=== PATIENT | male | born 1990 | race Caucasian/White ===

== ENCOUNTER 2017-05-02 13:12 | Emergency (ER) | payer SELFPAY ==
[~2017-05-02] VITALS: Ht 180.3 cm; Wt 88.2 kg
[~2017-05-02 13:12] MED LIST: LANS15CA6 PO; NAPR1TAB9 PO
[2017-05-02 13:16] VITALS: TEMP 37.2; Ht 180.3 cm; Wt 88.2 kg
[2017-05-02 14:48] LABS: BASO % 0.4 %; BASO ABS # 0.04 K/uL (0-0.2); COMPLETE YES; EOS % 0.4 %; IG% 0.1 %; LYMPH ABS # 2.19 K/uL (1.2-3.4); MEAN CELL VOLUME 90.7 fL (80-100); MEAN CORPUSCULAR HEMOGLOBIN 31.5 pg (25-34); MEAN CORPUSCULAR HGB CONC 34.7 g/dl (32-36); MEAN PLATELET VOLUME 10.6 fL (7.4-10.4); MONO % 4.1 %; PLATELET COUNT 242 K/uL (130-400); RED BLOOD COUNT 5.18 M/uL (4.7-6.1); WHITE BLOOD COUNT 9.54 K/uL (4.8-10.8)
[2017-05-02 15:09] LABS: BUN/CREATININE RATIO 11.7 (10-20); CALCIUM 9.8 mg/dl (8.5-10.1); CREATININE 1.1 mg/dl (0.60-1.40); POTASSIUM 3.3 mmol/L (3.5-5.1)
[2017-05-02 15:12] LABS: ALB/GLOB RATIO 1.3 (0.9-2)
[2017-05-02 15:53] VITALS: BP 132/82; PULSE 68; O2SAT 97
--- NOTE | 2017-05-02 16:01 | EMERGENCY ROOM VISIT NOTE ---
History First contact with patient: 13:29 Chief Complaint: ABDOMINAL PAIN Stated Complaint: NAUSEA, ABDOMINAL PAINS Nursing Triage Summary: Pt c/o mid upper abd pain and nausea for months, worse of the last few weeks. Quit smoking and took prevacid because he wasn't feeling well. Intermittent v/d. Pt reports he stopped all dairy as well. History of Present Illness The patient is a 27 year old male who presents to the Emergency Room with complaints of abdominal discomfort. The patient has had approximately 2 years of epigastric abdominal discomfort, worse with eating, better with laying down, and worsening over the last month. He describes the pain as dull, 3/10 at its worse, not radiating, and worse in afternoon. The patient has been self- medicating with Prevacid for the last year. He has recently tried to change his diet because the discomfort was worsening over the last month, and over the last 2 weeks cut out both dairy and meat from his diet. He denies any improvement with his change in diet and was worried that it was continuing to worsen. He also states that 4 months ago he quit smoking and only smokes alcohol on weekends. The patient also describes that he has had some bright red blood in his stool in the past, but has not had an episode over the last 3 months. He states that his stool is currently normal and he denies any dark stools. He denies any vomiting, but does appreciate some nausea during the episodes. He denies any fevers, chills, chest pain, weakness, fatigue, or any other acute symptoms. Review of Systems See HPI for pertinent positives and negatives. A total of ten systems were reviewed and were otherwise negative. Past Medical/Surgical History Medical Problems: (1) No significant past medical history Family History FHx: gallbladder disease Social History Smoking Status: Former Smoker Alcohol Use: occasionally Occupation Status: employed Current/Historical Medications Scheduled Lansoprazole (Prevacid), 1 TAB PO DAILY Scheduled PRN Naproxen (Aleve), 220 MG PO DIRECTED PRN for Pain or Fever Allergies Coded Allergies: No Known Allergies (Unverified , 05/02/17) Physical Exam Vital Signs Date Time Temp Pulse Resp B/P (MAP) Pulse Ox O2 Delivery O2 Flow Rate FiO2 05/02/17 14:44 65 20 139/75 99 Room Air 05/02/17 13:16 37.2 84 16 150/95 99 Room Air Physical Exam GENERAL: Awake, alert, well-appearing, in no distress HENT: Normocephalic, atraumatic. Oropharynx unremarkable. EYES: Normal conjunctiva. Sclera non-icteric. NECK: Supple. No nuchal rigidity. RESPIRATORY: Clear to auscultation. CARDIAC: Regular rate, normal rhythm. Extremities warm and well perfused. Pulses equal. ABDOMEN: Soft, non-distended. Mild tenderness with palpation of the epigastric region. No rebound or guarding. RECTAL: Deferred. MUSCULOSKELETAL: Chest examination reveals no tenderness. The back is symmetrical on inspection without obvious abnormality. There is no CVA tenderness to palpation. LOWER EXTREMITIES: Calves are equal size bilaterally and non-tender. No edema. No discoloration. NEURO: Normal sensorium. No sensory or motor deficits noted. SKIN: No rash or jaundice noted. Medical Decision & Procedures Laboratory Results 05/02/17 14:35 Red Blood Count 5.18, Mean Corpuscular Volume 90.7, Mean Corpuscular Hemoglobin 31.5, Mean Corpuscular Hemoglobin Concent 34.7, Mean Platelet Volume 10.6, Neutrophils (%) (Auto) 72.0, Lymphocytes (%) (Auto) 23.0, Monocytes (%) (Auto) 4.1, Eosinophils (%) (Auto) 0.4, Basophils (%) (Auto) 0.4, Neutrophils # (Auto) 6.87, Lymphocytes # (Auto) 2.19, Monocytes # (Auto) 0.39, Eosinophils # (Auto) 0.04, Basophils # (Auto) 0.04 05/02/17 14:35 Test 05/02/17 14:35 White Blood Count 9.54 K/uL (4.8-10.8) Red Blood Count 5.18 M/uL (4.7-6.1) Hemoglobin 16.3 g/dL (14.0-18.0) Hematocrit 47.0 % (42-52) Mean Corpuscular Volume 90.7 fL (80-100) Mean Corpuscular Hemoglobin 31.5 pg (25-34) Mean Corpuscular Hemoglobin Concent 34.7 g/dl (32-36) Platelet Count 242 K/uL (130-400) Mean Platelet Volume 10.6 fL (7.4-10.4) Neutrophils (%) (Auto) 72.0 % Lymphocytes (%) (Auto) 23.0 % Monocytes (%) (Auto) 4.1 % Eosinophils (%) (Auto) 0.4 % Basophils (%) (Auto) 0.4 % Neutrophils # (Auto) 6.87 K/uL (1.4-6.5) Lymphocytes # (Auto) 2.19 K/uL (1.2-3.4) Monocytes # (Auto) 0.39 K/uL (0.11-0.59) Eosinophils # (Auto) 0.04 K/uL (0-0.5) Basophils # (Auto) 0.04 K/uL (0-0.2) RDW Standard Deviation 42.7 fL (36.4-46.3) RDW Coefficient of Variation 12.8 % (11.5-14.5) Immature Granulocyte % (Auto) 0.1 % Immature Granulocyte # (Auto) 0.01 K/uL (0.00-0.02) Anion Gap 9.0 mmol/L (3-11) Est Creatinine Clear Calc Drug Dose 108.3 ml/min Estimated GFR () 106.8 Estimated GFR (Non- 92.2 BUN/Creatinine Ratio 11.7 (10-20) Calcium Level 9.8 mg/dl (8.5-10.1) Total Bilirubin 1.0 mg/dl (0.2-1) Aspartate Amino Transf (AST/SGOT) 32 U/L (15-37) Alanine Aminotransferase (ALT/SGPT) 46 U/L (12-78) Alkaline Phosphatase 55 U/L (45-117) Total Protein 8.6 gm/dl (6.4-8.2) Albumin 4.8 gm/dl (3.4-5.0) Globulin 3.8 gm/dl (2.5-4.0) Albumin/Globulin Ratio 1.3 (0.9-2) Lipase 102 U/L (73-393) Medical Decision Patient is a 27 year old male that presents to the ED with abdominal pain Etiologies such as appendicitis, obstruction, inflammatory bowel disease, PUD, biliary pathology, pancreatitis, infections, as well as others were entertained. Labs: CBC, CMP, Lipase Impression Primary Impression: Epigastric abdominal pain of unknown etiology Patient is a 27 year old male that presents with abdominal discomfort for the last 2 years - Patient CBC, CMP, and Lipase appear to be within normal limits - Patient currently taking Prevacid 15mg at home daily - Symptoms appear to correlate with GERD and currently receiving subtherapeutic dose of PPI Departure Information Dispostion Home / Self-Care Condition GOOD Referrals No Doctor, Assigned (PCP) Patient Instructions My [facility] Additional Instructions Increase your dose of Prevacid to 30mg once daily for abdominal discomfort Return to the ER immediately for worsening or persistent abdominal pain, vomiting, fevers, chest pains, difficulty breathing, black or bloody stools, worsening of your condition, or as needed. Establish with a primary physician as soon as possible for a recheck of your current condition.
--- NOTE | 2017-05-02 18:37 | EMERGENCY ROOM VISIT NOTE ---
History Report prepared by Edgardo: Jocelyne Hester Under the Supervision of: Dr. Meet De La Paz M.D. First contact with patient: 13:29 Chief Complaint: ABDOMINAL PAIN Stated Complaint: NAUSEA, ABDOMINAL PAINS Nursing Triage Summary: Pt c/o mid upper abd pain and nausea for months, worse of the last few weeks. Quit smoking and took prevacid because he wasn't feeling well. Intermittent v/d. Pt reports he stopped all dairy as well. History of Present Illness The patient is a 27 year old male who presents to the Emergency Room with complaints of worsening upper abdominal pain beginning 1 month prior to arrival. He rates his pain as 3/10 in severity. The patient states that he has been experiencing abdominal pain for the past 2 years. This past month and into the past 2 weeks have been the most severe. The patient 4 months ago quit smoking. He notes recent changes to his diet within the past 2 weeks. He stopped drinking coffee and is not eating acidic food, meat or dairy. He has not noticed a change in his symptoms. The patient states that his pain worsens after eating. She denies any early satiety. The patient does drink alcohol once a week. He states he does experience nausea with the pain. The patient does take Protonics every morning and has been doing so for the past 2 years. The patient for the past year has intermittently experienced bright red blood in his stool. He notes that he has not had this for the past 4 months. The patient has noticed a slight change in his stools but he notes he thinks this is from his recently diet changes. The patient denies urinary symptoms or unintentional weight loss. He denies a family history of IBS or Crohn's disease. Source of History: patient Onset: 1 month PAN [employer]UL[employer] Position: abdomen (upper) Symptom Intensity: 3/10 Timing: worsening Associated Symptoms: + nausea Note: The patient has slight changes in his stool. The patient's pain worsens with eating. Review of Systems See HPI for pertinent positives & negatives. A total of 10 systems reviewed and were otherwise negative. Past Medical & Surgical Medical Problems: (1) No significant past medical history Family History FHx: gallbladder disease Social History Smoking Status: Former Smoker Alcohol Use: occasionally Occupation Status: employed Current/Historical Medications Scheduled Lansoprazole (Prevacid), 1 TAB PO DAILY Scheduled PRN Naproxen (Aleve), 220 MG PO DIRECTED PRN for Pain or Fever Allergies Coded Allergies: No Known Allergies (Unverified , 05/02/17) Physical Exam Vital Signs Date Time Temp Pulse Resp B/P (MAP) Pulse Ox O2 Delivery O2 Flow Rate FiO2 05/02/17 15:53 68 20 132/82 97 Room Air 05/02/17 14:44 65 20 139/75 99 Room Air 05/02/17 13:16 37.2 84 16 150/95 99 Room Air Physical Exam Constitutional: Vital signs reviewed. Eyes: Pupils are equal round reactive to light. Conjunctiva are noninjected. ENT: Pharynx is clear without erythema or exudate. Mucous membranes are moist. Neck supple without meningeal signs. Respiratory: Clear to auscultation bilaterally. Breath sounds are equal bilaterally. Cardiovascular: Regular rate and rhythm. No rubs or gallops. GI: Soft, nondistended and minimal epigastric tenderness. Bowel sounds are present. Musculoskeletal: No peripheral edema. No lower extremity tenderness. Integumentary: No cyanosis. Neurological: The patient is awake and alert. No focal deficits. Psychiatric: Normal affect. Medical Decision & Procedures Laboratory Results 05/02/17 14:35 Red Blood Count 5.18, Mean Corpuscular Volume 90.7, Mean Corpuscular Hemoglobin 31.5, Mean Corpuscular Hemoglobin Concent 34.7, Mean Platelet Volume 10.6, Neutrophils (%) (Auto) 72.0, Lymphocytes (%) (Auto) 23.0, Monocytes (%) (Auto) 4.1, Eosinophils (%) (Auto) 0.4, Basophils (%) (Auto) 0.4, Neutrophils # (Auto) 6.87, Lymphocytes # (Auto) 2.19, Monocytes # (Auto) 0.39, Eosinophils # (Auto) 0.04, Basophils # (Auto) 0.04 05/02/17 14:35 Test 05/02/17 14:35 White Blood Count 9.54 K/uL (4.8-10.8) Red Blood Count 5.18 M/uL (4.7-6.1) Hemoglobin 16.3 g/dL (14.0-18.0) Hematocrit 47.0 % (42-52) Mean Corpuscular Volume 90.7 fL (80-100) Mean Corpuscular Hemoglobin 31.5 pg (25-34) Mean Corpuscular Hemoglobin Concent 34.7 g/dl (32-36) Platelet Count 242 K/uL (130-400) Mean Platelet Volume 10.6 fL (7.4-10.4) Neutrophils (%) (Auto) 72.0 % Lymphocytes (%) (Auto) 23.0 % Monocytes (%) (Auto) 4.1 % Eosinophils (%) (Auto) 0.4 % Basophils (%) (Auto) 0.4 % Neutrophils # (Auto) 6.87 K/uL (1.4-6.5) Lymphocytes # (Auto) 2.19 K/uL (1.2-3.4) Monocytes # (Auto) 0.39 K/uL (0.11-0.59) Eosinophils # (Auto) 0.04 K/uL (0-0.5) Basophils # (Auto) 0.04 K/uL (0-0.2) RDW Standard Deviation 42.7 fL (36.4-46.3) RDW Coefficient of Variation 12.8 % (11.5-14.5) Immature Granulocyte % (Auto) 0.1 % Immature Granulocyte # (Auto) 0.01 K/uL (0.00-0.02) Anion Gap 9.0 mmol/L (3-11) Est Creatinine Clear Calc Drug Dose 108.3 ml/min Estimated GFR () 106.8 Estimated GFR (Non- 92.2 BUN/Creatinine Ratio 11.7 (10-20) Calcium Level 9.8 mg/dl (8.5-10.1) Total Bilirubin 1.0 mg/dl (0.2-1) Aspartate Amino Transf (AST/SGOT) 32 U/L (15-37) Alanine Aminotransferase (ALT/SGPT) 46 U/L (12-78) Alkaline Phosphatase 55 U/L (45-117) Total Protein 8.6 gm/dl (6.4-8.2) Albumin 4.8 gm/dl (3.4-5.0) Globulin 3.8 gm/dl (2.5-4.0) Albumin/Globulin Ratio 1.3 (0.9-2) Lipase 102 U/L (73-393) Laboratory results as reviewed by me. ED Course 1402: The patient was evaluated in room B8. A complete history and physical exam was performed. 1602: Upon reevaluation, the patient appeared to have improvement of his symptoms. I discussed tonight's findings with him. He verbalized agreement of the treatment plan. He was discharged home. Medical Decision This is a 27-year-old male who presents with epigastric abdominal pain. Differential diagnosis includes peptic ulcer disease, gastritis, pancreatitis, cholelithiasis, inflammatory bowel disease, irritable bowel syndrome. I did perform a limited focused review of portions of the patient's old chart on the electronic medical record. The patient has had no recent pertinent visits to this hospital. Medication Reconciliation: I attest that I have personally reviewed the patient' s current medication list. Blood Pressure Screening: Patient was found to have an elevated blood pressure and was referred to their primary doctor for recheck and further treatment. I did evaluate the patient as noted above. The patient is presenting with a 2 year history of epigastric pain which is worse after eating. IV access was established. I did order and review the patient's blood work as noted in the electronic medical record. He has mild hypokalemia but otherwise no acute abnormalities. Test results were discussed with the patient. He was advised follow up with a primary care physician. The resident will try to see him in follow up in the clinic. The patient was discharged in good condition. Resident Physician Supervision Note: I did evaluate and examine this patient myself. I did guide management for the patient. I agree with the resident's (Dr. Alcazar) assessment as discussed. Please see the resident's dictation for further details. Impression Primary Impression: Abdominal pain Additional Impression: Hypokalemia Scribe Attestation The scribe's documentation has been prepared under my direct and personally reviewed by me in its entirety. I confirm that the note above accurately reflects all work, treatment, procedures, and medical decision making performed by me. Departure Information Dispostion Home / Self-Care Referrals No Doctor, Assigned (PCP) Forms HOME CARE DOCUMENTATION FORM, IMPORTANT VISIT INFORMATION Patient Instructions My [facility] Additional Instructions Increase your dose of Prevacid to 30mg once daily for abdominal discomfort Return to the ER immediately for worsening or persistent abdominal pain, vomiting, fevers, chest pains, difficulty breathing, black or bloody stools, worsening of your condition, or as needed. Establish with a primary physician as soon as possible for a recheck of your current condition. Problem Qualifiers Primary Impression: Abdominal pain Abdominal location: epigastric Qualified Codes: R10.13 - Epigastric pain
== END 2017-05-02 16:11 | disposition home or self-care (01) ==
LOC: C.EDB 13:13
DX: R10.13 Epigastric pain (principal); Z87.891 Personal history of nicotine dependence

== ENCOUNTER 2017-05-26 21:54 | Emergency (ER) | payer SELFPAY ==
[~2017-05-26] VITALS: Ht 180.3 cm; Wt 87.5 kg
[2017-05-26 21:56] VITALS: TEMP 37.2; Ht 180.3 cm; Wt 87.5 kg
[2017-05-26] MEDS ORDERED: SULF800T23 PO (22:23)
[2017-05-26] MEDS ORDERED: CEPH500C PO (22:23)
[2017-05-26] MEDS ORDERED: LANS15CA27 PO (22:24)
[2017-05-26] MEDS ORDERED: SEPTRA DS HOME PACK 1 EA VIAL PO ONE (22:30)
[2017-05-26] MEDS ORDERED: CEPHALEXIN 500MG HOME PACK 1 EA BTL PO ONE (22:30)
[2017-05-26 23:04] VITALS: BP 132/72; PULSE 62; O2SAT 99
--- NOTE | 2017-05-27 06:29 | EMERGENCY ROOM VISIT NOTE ---
History First contact with patient: 22:13 Chief Complaint: LEG PAIN,LEG INJURY Stated Complaint: LF LEG INJURY History of Present Illness The patient is a 27 year old male who presents to the Emergency Room with complaints of pain and swelling to the left lower extremity worsening over the past 3-4 days. The patient states that he initially suffered a small abrasion over the anterior left tibia earlier this week. He states that he has had some worsening pain and swelling today. He had a blister/bubble that he opened with a blade. This drained a bloody discharge. He has not had fever or chills. He has had worsening redness around the area. The patient is concerned for infection. He rates his discomfort a 4/10. Review of Systems More than 10 systems were reviewed and otherwise negative with the exception of history of present illness. Past Medical/Surgical History Medical Problems: (1) No significant past medical history Family History FHx: gallbladder disease Social History Smoking Status: Never Smoker Alcohol Use: occasionally Occupation Status: employed Current/Historical Medications Scheduled Cephalexin Monohydrate (Keflex), 500 MG PO TID Lansoprazole (Prevacid), 15 MG PO BID Sulfa/Trimethoprim (Bactrim Ds 800MG/160MG), 1 TAB PO BID Scheduled PRN Naproxen (Aleve), 220 MG PO DIRECTED PRN for Pain or Fever Physical Exam Vital Signs Date Time Temp Pulse Resp B/P (MAP) Pulse Ox O2 Delivery O2 Flow Rate FiO2 05/26/17 23:04 62 16 132/72 99 05/26/17 21:56 37.2 75 18 144/83 99 Room Air Pain Rating (0-10): 0 Physical Exam VITALS: Vitals are noted on the nurse's note and reviewed by myself. Vital signs stable. GENERAL: Well-developed, well-nourished, white male, who is in no acute distress and resting comfortably. Patient is cooperative with the examination. HEART: Regular rate and rhythm without murmurs gallops or rubs. LUNGS: Clear to auscultation bilaterally without wheezes, rales or rhonchi. No retractions or accessory muscle use. NEURO: Patient was alert and oriented to person place and time. CN II through XII grossly intact. SKIN: The skin was with a fairly well-healing abrasion over the left anterior tibia. This does have surrounding erythema consistent with cellulitis measuring approximately 3 cm x 4 cm around this wound. There is no abscess or drainage for culture. No lymphangitic streaking. Medical Decision & Procedures Medications Administered Medications (Trade) Dose Ordered Sig/Philomena Route Start Time Stop Time Status Last Admin Dose Admin Trimethoprim/ Sulfamethoxazole (Sulfameth/ Trimeth Ds 800/ 160MG Home Pack) 1 homepack UD ONCE PO 05/26/17 22:30 05/26/17 22:31 DC 05/26/17 23:03 1 HOMEPACK Cephalexin Monohydrate (Keflex 500MG Home Pack) 1 homepack NOW ONCE PO 05/26/17 22:30 05/26/17 22:31 DC 05/26/17 23:03 1 HOMEPACK ED Course Physical exam and history were performed. Nursing notes, EMR, and Medication List were personally reviewed. Patient appears to have a left lower leg cellulitis. The patient is not allergic and will be given a course of Bactrim and Keflex with his first doses provided here in the department. The patient was asked to follow with his PCP this week for further care and management. He was otherwise invited back to the ER with any new, worsening, or concerning symptoms. The chart was completed utilizing [employer] Speech Voice Recognition Software. Grammatical errors, random word insertions, pronoun errors, and incomplete sentences are an occasional consequence of this system due to software limitations, ambient noise, and hardware issues. Any formal questions or concerns about the content, text, or information contained within the body of this dictation should be directly addressed to the provider for clarification. . Medical Decision Differential diagnosis: Etiologies such as cellulitis, abscess, MRSA infection, DVT, necrotizing fasciitis, dermatitis, drug eruption, as well as others were entertained.. Medication Reconcilliation Current Medication List: was personally reviewed by me Blood Pressure Screening Blood pressure disposition: Elevated BP felt to be situational Impression Primary Impression: Left leg cellulitis Departure Information Dispostion Home / Self-Care Condition GOOD Prescriptions Cephalexin Monohydrate (Keflex) 500 Mg Cap 500 MG PO TID for 9 Days, #27 CAP Prov: Eric Hernandez PA-C 05/26/17 Sulfa/Trimethoprim (Bactrim Ds 800MG/160MG) Tab 1 TAB PO BID for 9 Days, #18 TAB Prov: Eric Hernandez PA-C 8/5/17 Forms HOME CARE DOCUMENTATION FORM, IMPORTANT VISIT INFORMATION Patient Instructions My [facility] Additional Instructions You were seen and evaluated today on an emergency basis only. This is not a substitute for, or an effort to provide, complete comprehensive medical care. It is not possible to recognize and treat all injuries or illnesses in a single emergency department visit. For this reason it is recommended that you followup with your primary care physician later this week for recheck of your condition. Trimethoprim-Sulfamethoxazole(Bactrim DS): Take one pill twice daily for 10 days for your skin infection. All antibiotics can cause diarrhea. If this occurs and you feel worse or it does not resolve in 1-2 days follow up with your doctor or return to the Emergency Department as this could be signs of serious underlying problems. Any medication can cause an allergic reaction, stop the pills immediately and return to the ER for rash, hives, breathing difficulties, or swelling. Cephalexin(Keflex) 500mg: Take one pill 3 times daily for 10 days for your skin infection. All antibiotics can cause diarrhea. If this occurs and you feel worse or it does not resolve in 1-2 days follow up with your doctor or return to the Emergency Department as this could be signs of serious underlying problems. Any medication can cause an allergic reaction, stop the pills immediately and return to the ER for rash, hives, breathing difficulties, or swelling. You are welcome to return to the emergency department anytime with new, worsening, or concerning symptoms.
== END 2017-05-26 23:05 | disposition home or self-care (01) ==
LOC: C.EDB 21:55 → C.EDC 23:05
DX: L03.116 Cellulitis of left lower limb (principal)

== ENCOUNTER 2018-05-25 20:20 | Emergency (ER) | payer SELFPAY ==
[~2018-05-25] VITALS: Ht 180.3 cm; Wt 89.2 kg
[~2018-05-25 20:20] MED LIST changes: +LANS15CA27 PO; -LANS15CA6 PO
[2018-05-25 20:25] VITALS: TEMP 37.1; Ht 180.3 cm; Wt 89.2 kg
--- NOTE | 2018-05-25 21:43 | DIAGNOSTIC IMAGING REPORT ---
PA CHEST WITH LEFT-SIDED RIB SERIES CLINICAL HISTORY: Fall with left-sided chest wall pain. FINDINGS: A PA chest radiograph with 5 additional views from a left-sided rib series is obtained. No prior studies are available for comparison at the time of dictation. The cardiomediastinal silhouette is unremarkable. The lungs and pleural spaces are clear. No pneumothorax is seen. There is no radiographic evidence of acute/distracted left-sided rib fracture on the rib series. The remainder of the bony thorax is grossly intact. IMPRESSION: 1. The lungs are clear. 2. There is no radiographic evidence of acute/distracted left-sided rib fracture. Electronically signed by: César Marroquin M.D. 05/25/2018 9:42 PM Dictated Date/Time: 05/25/2018 9:41 PM
[2018-05-25] MEDS ORDERED: RANI150T85 PO (21:45)
--- NOTE | 2018-05-25 21:46 | DIAGNOSTIC IMAGING REPORT ---
LUMBAR SPINE 5 VIEWS CLINICAL HISTORY: Fall with low back pain. FINDINGS: 5 views of the lumbar spine are obtained. No prior studies are available for comparison at the time of dictation. The skeletal structures are well mineralized. There is no radiographic evidence of fracture or malalignment. Vertebral body height and is maintained. Bilateral pars defects are noted at L5 with 6 mm anterolisthesis at L5-S1. Alignment is otherwise preserved. The transverse and spinous processes are intact. There is mild disc space narrowing at L5-S1. The remaining intervertebral disc spaces are well-maintained. The visualized bony pelvis appears intact. There is a nonobstructed abdominal bowel gas pattern. There is moderate to severe constipation. IMPRESSION: 1. No acute bony abnormality is seen involving the lumbosacral spine. 2. There are bilateral pars defects at L5 with 6 mm of anterolisthesis at L5-S1. 3. Moderate to severe constipation. Electronically signed by: César Marroquin M.D. 05/25/2018 9:44 PM Dictated Date/Time: 05/25/2018 9:42 PM
--- NOTE | 2018-05-25 22:00 | EMERGENCY ROOM VISIT NOTE ---
History First contact with patient: 20:39 Chief Complaint: BACK PAIN Stated Complaint: BACK PAIN History of Present Illness Patient is an otherwise healthy 28-year-old male who presents the emergency department accompanied by his for evaluation of low back and left clavicle pain after a fall that occurred about 3-4 days ago. 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 When he fell, he did strike the back of his head on an unattached 2 x 8. He landed primarily on his mid to low back, with his legs up in the air. He did not lose consciousness. He states that he sustained a few cuts to his fingers on his right hand which was his primary concern. Afterwards, he felt fine so he continued to work. He did not experience any pain in the ribs or chest or shortness of breath. There was no associated headache or neck pain. He did note some left clavicle discomfort with certain positions shortly after the fall. Otherwise he continued to work throughout the week. He did not take any medication for his symptoms. He did not want to use any Aleve because he had struck his head. Today, he states that he was feeling well, however was seated in his car, and twisted to the left to get something from the drive-through when he felt acute pain in his low back, primarily on the left side. He describes it as a "shock" of pain. It stays in the back and does not radiate into the buttocks, hips or legs. No radiation into the groin or the genital region. He denies any urinary symptoms, gross hematuria, bowel or bladder incontinence or saddle anesthesias. He presently rates his discomfort a 4/10. Review of Systems Review of systems as per HPI. All other systems reviewed were negative. 10 systems reviewed. Past Medical/Surgical History Medical Problems: (1) Abdominal pain (2) Acid reflux (3) Acute sinusitis (4) Dizziness (5) Epigastric abdominal pain of unknown etiology (6) Headache (7) Hypokalemia (8) Kidney stone (9) Left leg cellulitis (10) Left leg cellulitis (11) No significant past medical history (12) Pain, dental Electronic medical records are reviewed and summarized as above/below. See Problem List. Family History FHx: gallbladder disease Social History Smoking Status: Never Smoker Alcohol Use: occasionally Marital Status: Housing Status: lives with family Occupation Status: employed Current/Historical Medications Scheduled Ranitidine (Zantac), 300 MG PO AMPM Scheduled PRN Naproxen (Aleve), 220 MG PO DIRECTED PRN for Pain or Fever Physical Exam Vital Signs Date Time Temp Pulse Resp B/P (MAP) Pulse Ox O2 Delivery O2 Flow Rate FiO2 05/25/18 21:51 73 18 131/72 98 Room Air 05/25/18 20:25 37.1 69 18 144/80 98 Room Air Physical Exam GENERAL: Patient is a well-appearing 28-year-old male who is awake and alert and in no acute distress. HEENT: Head - normocephalic and atraumatic. Pupils are equal, round, and reactive to light. Extraocular eye muscles are intact and sclera are anicteric. Ears - bilaterally patent canals with no evidence of hemotympanum. Mouth - moist buccal mucosa with no trauma to the teeth or signs of malocclusion. Neck: The neck is supple and there is no pain to palpation over the posterior cervical spine and no obvious step-offs or deformities. There is no JVD or tracheal deviation. Chest: There are no signs of deformities, contusions or abrasions to the chest wall and anterior ribs. Palpation of the posterior left ribs does not elicit any discomfort. There is no obvious crepitus or paradoxical chest rise. Heart: Regular rate, and regular rhythm. There is a normal S1 and S2 with no murmurs, clicks, or gallops appreciated. Lungs: Breath sounds equal and clear to auscultation without wheezes, rales, or rhonchi heard. Abdomen: Soft, completely nontender, nondistended, with good bowel sounds. There is no sign of trauma such as contusions, abrasions or penetrations. There are no palpable pulsatile masses or hepatosplenomegaly. There is no guarding, rigidity, or rebound noted. Extremities: Superficial abrasion noted on the ulnar aspect of the left forearm. Palpation of the left clavicle, acromioclavicular joint and sternoclavicular joint did not elicit any significant discomfort, no obvious fracture crepitus. No subcu air. Shoulder range of motion is full. No obvious trauma, deformities, contusions, or edema. There are easily palpable peripheral pulses. Lower extremity DTRs are equal and symmetrical bilaterally. Straight leg raise testing is negative. Logroll negative. Neuro: The patient is awake and alert and easily able to follow commands. Muscle strength is 5 out of 5 in all 4 extremities. Otherwise, neuro exam is unremarkable. Back: The entire thoracic, lumbar, and sacral spine were palpated. The patient has a superficial abrasion noted over the left low back, over the pelvis. No significant ecchymosis or contusions noted. No discomfort over the thoracic or lumbar spinous processes. There are no obvious step-offs or deformities noted. Full lumbar spine range of motion. Medical Decision & Procedures ER Provider Diagnostic Interpretation: LUMBAR SPINE 5 VIEWS CLINICAL HISTORY: Fall with low back pain. FINDINGS: 5 views of the lumbar spine are obtained. No prior studies are available for comparison at the time of dictation. The skeletal structures are well mineralized. There is no radiographic evidence of fracture or malalignment. Vertebral body height and is maintained. Bilateral pars defects are noted at L5 with 6 mm anterolisthesis at L5-S1. Alignment is otherwise preserved. The transverse and spinous processes are intact. There is mild disc space narrowing at L5-S1. The remaining intervertebral disc spaces are well-maintained. The visualized bony pelvis appears intact. There is a nonobstructed abdominal bowel gas pattern. There is moderate to severe constipation. IMPRESSION: 1. No acute bony abnormality is seen involving the lumbosacral spine. 2. There are bilateral pars defects at L5 with 6 mm of anterolisthesis at L5-S1. 3. Moderate to severe constipation. PA CHEST WITH LEFT-SIDED RIB SERIES CLINICAL HISTORY: Fall with left-sided chest wall pain. FINDINGS: A PA chest radiograph with 5 additional views from a left-sided rib series is obtained. No prior studies are available for comparison at the time of dictation. The cardiomediastinal silhouette is unremarkable. The lungs and pleural spaces are clear. No pneumothorax is seen. There is no radiographic evidence of acute/distracted left-sided rib fracture on the rib series. The remainder of the bony thorax is grossly intact. IMPRESSION: 1. The lungs are clear. 2. There is no radiographic evidence of acute/distracted left-sided rib fracture. ED Course The patient was seen and evaluated as above. He presents to the emergency department for evaluation of discomfort in the left clavicle, and in the left low back after sustaining a fall from a roughly 9-10 feet about 3 or 4 days ago. He did strike the back of his head slightly, but does not endorse any concussion-like symptoms, severe headaches or syncope. He has no neck pain. He did not have any left back pain until just earlier today when he twisted while being seated in the car. Patient provided a urine sample which was visualized by myself and was not grossly bloody, urine dip was completely clear. Given this, and the duration since his injury it was felt that any type of retroperitoneal trauma was unlikely. Chest with left ribs and lumbar spine x -rays were obtained, without evidence for acute posttraumatic findings. X-ray findings were reviewed with the patient. I do suspect that his discomfort is likely musculoskeletal or ligamentous in nature, given the location in the left low back exacerbated by rotation. He does not have any physical exam findings to suspect acute cord compression or cauda equina syndrome. I do not suspect epidural abscess or hematoma. Rib fracture, clavicle fracture, pneumothorax were all considered. The patient was reassured, and supportive care measures were discussed. He can return to activity as tolerated. He was welcome to return to the emergency department for worsening symptoms. He was discharged home in good condition with his . Medical Decision See emergency department course. Head Trauma GCS Score: 15 Medication Reconcilliation Current Medication List: was personally reviewed by me Blood Pressure Screening Patient's blood pressure: Normal blood pressure Blood pressure disposition: Did not require urgent referral Impression Primary Impression: Lumbar contusion Additional Impression: Fall Departure Information Referrals No Doctor, Assigned (PCP) Patient Instructions My [facility] Additional Instructions Ibuprofen(Motrin, Advil) may be used for fever or pain. Use 600mg every six hours as needed. Take with food. Avoid using more than 2400mg in a 24 hour period. Do not use 2400mg per day for more than three consecutive days without physician direction. Prolonged inappropriate use can lead to stomach upset or ulcers. This medication can be taken if you need to drive, work, or perform activities which may be dangerous when taking narcotic pain medication. (AND/OR) Acetaminophen(Tylenol) may be used for fever or pain. Use 1000mg every six hours as needed. Avoid using more than 3000mg in a 24 hour period. This medication can be taken if you need to drive, work, or perform activities which may be dangerous when taking narcotic pain medication. Rest and avoid heavy lifting until your symptoms resolve and then gradually return to full activity. A good rule of thumb is if it hurts your back to perform a certain activity, then it should be avoided until you are healthy again. A heating pad, warm compresses, or a hot shower may help with tight muscles and can be done several times a day as needed. Continue current medications. Return to the ER immediately for any numbness, tingling, severe pain, loss of control of your bowels or bladder, inability to walk, or as needed. Follow up with your primary care physician within 3-5 days for a recheck of your current condition. Problem Qualifiers Primary Impression: Lumbar contusion Encounter type: initial encounter Qualified Codes: S30.0XXA - Contusion of lower back and pelvis, initial encounter Additional Impression: Fall Encounter type: initial encounter Qualified Codes: W19.XXXA - Unspecified fall, initial encounter
[2018-05-25 22:05] VITALS: BP 131/72; PULSE 73; O2SAT 98
== END 2018-05-25 22:06 | disposition home or self-care (01) ==
LOC: C.EDB 20:21 → C.EDA 22:06
DX: S30.0XXA Contusion of lower back and pelvis, initial encounter (principal); S30.810A Abrasion of lower back and pelvis, initial encounter; S50.812A Abrasion of left forearm, initial encounter; M25.512 Pain in left shoulder; W17.89XA Other fall from one level to another, initial encounter; Y93.H3 Activity, building and construction; Y92.009 Unspecified place in unspecified non-institutional (private) residence as the place of occurrence of the external cause; K21.9 Gastro-esophageal reflux disease without esophagitis

== ENCOUNTER 2021-11-22 14:00 | Inpatient (IN) ==
[2021-11-22 14:32] LABS: Basophils # (auto) 0.05 K/uL (0-0.2); Basophils % (auto) 0.7 %; Eosinophils # (auto) 0.07 K/uL (0-0.5); Hematocrit (blood only) 49.2 % (42-52); Hemoglobin 16.7 g/dL (14.0-18.0); Immature Granulocytes # (auto) 0.01 K/uL (0.00-0.02); Immature Granulocytes % (auto) 0.1 %; Lymphocytes # (auto) 2.79 K/uL (1.2-3.4); Mean Corpuscular Hemoglobin 33.3 pg (25-34); Mean Corpuscular Hgb Conc 33.9 g/dL (32-36); Mean Platelet Volume 10.4 fL (7.4-10.4); Monocytes # (auto) 0.49 K/uL (0.11-0.59); Neutrophils # (auto) 3.57 K/uL (1.4-6.5); Neutrophils % (auto) 51.2 %; Platelet Count 237 K/uL (130-400); RDW Coefficient of Variation 13.6 % (11.5-14.5); RDW Standard Deviation 48.4 fL (36.4-46.3); Red Blood Count 5.02 M/uL (4.7-6.1); White Blood Count 6.98 K/uL (4.8-10.8)
[2021-11-22 14:50] LABS: Appearance Urine Clear (Clear); Bilirubin Urine Negative (Negative); Blood Urine Negative (Negative); Color Urine Yellow; Glucose Urine UA Negative (Negative); Ketones Urine Negative (Negative); Leukocyte Esterase Urine Negative (Negative); Nitrite Urine Negative (Negative); Protein Urine Negative (Negative); Specific Gravity Urine 1.014 (1.000-1.030); Urobilinogen Urine Negative (Negative); pH Urine 6.5 (4.5-7.5)
[2021-11-22 15:03] LABS: Acetaminophen < 3 ug/ml (10-30); Albumin Globulin Ratio 1.5 (0.9-2); Albumin Level 4.9 gm/dl (3.4-5.0); BUN Creatinine Ratio 11.9 (10-20); Bilirubin,Total 0.6 mg/dl (0.2-1.0); Calcium 9.9 mg/dl (8.5-10.1); Creatinine Clr Calc Pharmacy 113.9 ml/min; Est GFR (African American) 115.1 ml/min; Est GFR (Non-African American) 99.3 ml/min; Globulin 3.2 gm/dl (2.5-4.0); Potassium 3.6 mmol/L (3.5-5.1); Salicylate < 3.0 mg/dl (3.0-30); Total Protein 8.1 gm/dl (6.0-8.3)
--- NOTE | 2021-11-22 15:16 | Emergency Department Note ---
History of Present Illness General Chief complaint: Mental Health Evaluation Stated complaint: MHID Time Seen by Provider: 11/22/21 14:55 Source: patient Mode of arrival: ambulatory Limitations: no limitations History of Present Illness This patient is a 31-year-old male who comes in after having anxiety. He says he has some left facial numbness for 4 days he says he been checked out he was started on Klonopin which he says feels like it gave him anxiety he said his heart was racing fast and he was short of breath he has been self-medicating with alcohol he has had about 220 mg of vodka today had 2 shots just prior to coming here and 2 shots while waiting to come in. He says he drinks daily and does tend to get alcohol withdrawal type symptoms if he does not drink enough but he has not had any now. Denies that he was trying to hurt himself denies any drug use denies extra medications aspirin or Tylenol. Denies chest pain at present no swelling mouth lips or tongue no rash. No fever chills he has had no Covid vaccine. 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 He said his left today. Home Medications Medication Instructions Recorded Confirmed Type No Known Home Medications 11/19/21 11/19/21 History Allergies Allergy/AdvReac Type Severity Reaction Status Date / Time bupropion [From Wellbutrin] AdvReac Severe anxiety, Verified 11/19/21 22:36 confussion buspirone [From BuSpar] AdvReac Intermediate Shaking/john Verified 11/19/21 22:36 mor gluten/dairy free AdvReac Severe Headache Uncoded 11/19/21 22:36 antihistamines AdvReac Intermediate "Just Uncoded 11/19/21 22:36 Don't Feel Right When I Take Them" Past Med/Surg History Medical History Abdominal pain Acute sinusitis Alcohol abuse with alcohol-induced anxiety disorder Dizziness BRITTNY (generalized anxiety disorder) Headache Hypokalemia Left leg cellulitis No pertinent family history Pain, dental Surgical History No pertinent past surgical history Family History Other No significant family history Social History Smoking Status: Current every day smoker Tobacco Type: E-cigarettes / Vaping Hx Substance Use: No Preferred Language: Gambian marital status: Current Living Situation: Spouse current occupational status: employed Feels Safe at Home: Yes Review of Systems A total of 10 systems reviewed and were otherwise negative Physical Exam Vital Signs Vital Signs - 24 hr 11/22/21 14:05 11/22/21 22:11 Temperature 37.2 C Temperature Source Temporal Artery Scan Pulse Rate 122 H Pulse Rate [Apical] 94 H Respiratory Rate 24 20 Respiratory Effort / Characteristics Non-Labored Spontaneous Respiratory Depth Normal Respiratory Pattern Regular Blood Pressure 146/83 H Blood Pressure [Right Arm] 143/91 H Blood Pressure Mean 104 Blood Pressure Mean [Right Arm] 108 Blood Pressure Position Sitting Blood Pressure Position [Right Arm] Sitting Pulse Oximetry 97 98 Oxygen Delivery Method Room Air Room Air Sepsis Recent Fever Within 48 Hours No Sepsis New/Unexplained Change in Mental Status No Sepsis Action Taken by Nursing No Action Required General: Well developed well nourished young male who appears mildly intoxicated but otherwise in no acute distress, breathing comfortably on room air. Normal speech nonslurred. HEENT: Normal cephalic atraumatic. Pupils are equal round and reactive to l ight. Extraocular movements are intact. Oropharynx is pink with moist mucous membranes. No swelling of the mouth lips or tongue. No nystagmus. Neck: Supple with a midline trachea. No meningeal signs or stiffness, no JVD or bruits. No Stridor. Chest: Clear to auscultation bilaterally. No wheezes or rhonchi. No increased work of breathing. Heart: Regular rate and rhythm without murmurs or gallops. Abdomen: Soft nontender, nondistended without rebound guarding or rigidity. Extremities: No cyanosis clubbing or edema. No calf tenderness or assymetry Spine/Back. Non tender to palpation. No CVA tenderness Skin: Good turgor without rashes. Neurologic exam: Cranial nerves two through 12 are intact. Motor and sensation are intact and symmetrical throughout. No tremor. Psych: Denies suicidal and homicidal ideations. He does have somewhat repetitive questions and does appear mildly intoxicated Course Administered Medications Discontinued Medications Lorazepam (Ativan) 1 mg in 2 mls @ 2 mls/min IV NOW STA Stop: 11/22/21 15:45 Last Admin: 11/22/21 16:01 Dose: 2 mls/min Documented by: [id number] Multivitamins 10 ml/ Thiamine HCl 100 mg/ Folic Acid 1 mg/Sodium Chloride 1,011.2 mls @ 1,011.2 mls/hr IV .Q1H ONE Stop: 11/22/21 17:28 Last Infusion: 11/22/21 18:48 Dose: 0 mls/hr Documented by: [id number] Admin: 11/22/21 17:40 Dose: 1,011.2 mls/hr Documented by: [id number] Lorazepam (Ativan) 1 mg in 2 mls @ 2 mls/min IV NOW STA Stop: 11/22/21 20:43 Last Admin: 11/22/21 20:49 Dose: 2 mls/min Documented by: [id number] Lorazepam (Ativan) 0.5 mg in 1 mls @ 1 mls/min IV NOW STA Stop: 11/22/21 22:35 Last Admin: 11/22/21 22:48 Dose: 1 mls/min Documented by: [id number] Medical Decision Making Differential Diagnosis Depression, anxiety, alcohol abuse/alcohol withdrawal, toxicologic, metabolic, cardiac disease, thyroid disease/endocrinologic Medical Records Attestation: I reviewed the patient's medical records. Home Medications Current Medication List: was personally reviewed by me Laboratory Data Attestation: I reviewed the patient's lab results. Result diagrams: 11/22/21 14:23 11/22/21 14:23 Lab Results 11/22/21 11/22/21 11/22/21 Range/Units 14:23 14:23 14:23 WBC 6.98 (4.8-10.8) K/uL RBC 5.02 (4.7-6.1) M/uL Hgb 16.7 (14.0-18.0) g/dL Hct 49.2 (42-52) % MCV 98.0 (80-100) fL MCH 33.3 (25-34) pg MCHC 33.9 (32-36) g/dL RDW Std Deviation 48.4 H (36.4-46.3) fL RDW Coeff of Bryanna 13.6 (11.5-14.5) % Plt Count 237 (130-400) K/uL MPV 10.4 (7.4-10.4) fL Immature Gran % (Auto) 0.1 % Neut % (Auto) 51.2 % Lymph % (Auto) 40.0 % [place] % (Auto) 7.0 % Eos % (Auto) 1.0 % Baso % (Auto) 0.7 % Neut # (Auto) 3.57 (1.4-6.5) K/uL Lymph # (Auto) 2.79 (1.2-3.4) K/uL [place] # (Auto) 0.49 (0.11-0.59) K/uL Eos # (Auto) 0.07 (0-0.5) K/uL Baso # (Auto) 0.05 (0-0.2) K/uL Immature Gran # (Auto) 0.01 (0.00-0.02) K/uL Sodium 139 (136-145) mmol/L Potassium 3.6 (3.5-5.1) mmol/L Chloride 101 (98-107) mmol/L Carbon Dioxide 26 (21-32) mmol/L Anion Gap 12 H (3-11) BUN 12 (6-23) mg/dl Creatinine 1.01 (0.6-1.4) mg/dl Est Cr Clr Drug Dosing 113.9 ml/min Est GFR ( Amer) 115.1 ml/min Est GFR (Non-Af Amer) 99.3 ml/min BUN/Creatinine Ratio 11.9 (10-20) Glucose 174 H (70-99(Fasting)) mg/dl Calcium 9.9 (8.5-10.1) mg/dl Magnesium (1.7-2.4) mg/dl Total Bilirubin 0.6 (0.2-1.0) mg/dl AST 70 H (13-39) U/L ALT 60 H (7-52) U/L Alkaline Phosphatase 50 (34-104) U/L Troponin I (0-0.04) ng/ml Total Protein 8.1 (6.0-8.3) gm/dl Albumin 4.9 (3.4-5.0) gm/dl Globulin 3.2 (2.5-4.0) gm/dl Albumin/Globulin Ratio 1.5 (0.9-2) TSH 1.002 (0.300-4.500) uIu/ml Urine Color Urine Appearance (Clear) Urine pH (4.5-7.5) Ur Specific [place] (1.000-1.030) Urine Protein (Negative) Urine Glucose (UA) (Negative) Urine Ketones (Negative) Urine Blood (Negative) Urine Nitrite (Negative) Urine Bilirubin (Negative) Urine Urobilinogen (Negative) Ur Leukocyte Esterase (Negative) Salicylates (3.0-30) mg/dl Urine Opiates Screen (Neg) Ur Methadone, Qual (Neg) Acetaminophen (10-30) ug/ml Urine Barbiturates (Neg) Ur Phencyclidine (PCP) (Neg) U Amphetamin/Meth Scrn (Neg) MDMA (Ecstasy) Screen (Neg) U Benzodiazepines Scrn (Neg) Ur Cocaine Metabolite (Neg) U Marijuana (THC) Screen (Neg) Ethyl Alcohol mg/dL (<10.0) mg/dl SARS-CoV-2, RNA, NAAT (NEGATIVE) 11/22/21 11/22/21 11/22/21 Range/Units 14:23 14:23 14:23 WBC (4.8-10.8) K/uL RBC (4.7-6.1) M/uL Hgb (14.0-18.0) g/dL Hct (42-52) % MCV (80-100) fL MCH (25-34) pg MCHC (32-36) g/dL RDW Std Deviation (36.4-46.3) fL RDW Coeff of Bryanna (11.5-14.5) % Plt Count (130-400) K/uL MPV (7.4-10.4) fL Immature Gran % (Auto) % Neut % (Auto) % Lymph % (Auto) % [place] % (Auto) % Eos % (Auto) % Baso % (Auto) % Neut # (Auto) (1.4-6.5) K/uL Lymph # (Auto) (1.2-3.4) K/uL [place] # (Auto) (0.11-0.59) K/uL Eos # (Auto) (0-0.5) K/uL Baso # (Auto) (0-0.2) K/uL Immature Gran # (Auto) (0.00-0.02) K/uL Sodium (136-145) mmol/L Potassium (3.5-5.1) mmol/L Chloride (98-107) mmol/L Carbon Dioxide (21-32) mmol/L Anion Gap (3-11) BUN (6-23) mg/dl Creatinine (0.6-1.4) mg/dl Est Cr Clr Drug Dosing ml/min Est GFR ( Amer) ml/min Est GFR (Non-Af Amer) ml/min BUN/Creatinine Ratio (10-20) Glucose (70-99(Fasting)) mg/dl Calcium (8.5-10.1) mg/dl Magnesium (1.7-2.4) mg/dl Total Bilirubin (0.2-1.0) mg/dl AST (13-39) U/L ALT (7-52) U/L Alkaline Phosphatase (34-104) U/L Troponin I < 0.03 (0-0.04) ng/ml Total Protein (6.0-8.3) gm/dl Albumin (3.4-5.0) gm/dl Globulin (2.5-4.0) gm/dl Albumin/Globulin Ratio (0.9-2) TSH (0.300-4.500) uIu/ml Urine Color Urine Appearance (Clear) Urine pH (4.5-7.5) Ur Specific [place] (1.000-1.030) Urine Protein (Negative) Urine Glucose (UA) (Negative) Urine Ketones (Negative) Urine Blood (Negative) Urine Nitrite (Negative) Urine Bilirubin (Negative) Urine Urobilinogen (Negative) Ur Leukocyte Esterase (Negative) Salicylates < 3.0 L (3.0-30) mg/dl Urine Opiates Screen (Neg) Ur Methadone, Qual (Neg) Acetaminophen < 3 L (10-30) ug/ml Urine Barbiturates (Neg) Ur Phencyclidine (PCP) (Neg) U Amphetamin/Meth Scrn (Neg) MDMA (Ecstasy) Screen (Neg) U Benzodiazepines Scrn (Neg) Ur Cocaine Metabolite (Neg) U Marijuana (THC) Screen (Neg) Ethyl Alcohol mg/dL 269.1 H (<10.0) mg/dl SARS-CoV-2, RNA, NAAT (NEGATIVE) 11/22/21 11/22/21 11/22/21 Range/Units 14:23 14:28 14:28 WBC (4.8-10.8) K/uL RBC (4.7-6.1) M/uL Hgb (14.0-18.0) g/dL Hct (42-52) % MCV (80-100) fL MCH (25-34) pg MCHC (32-36) g/dL RDW Std Deviation (36.4-46.3) fL RDW Coeff of Bryanna (11.5-14.5) % Plt Count (130-400) K/uL MPV (7.4-10.4) fL Immature Gran % (Auto) % Neut % (Auto) % Lymph % (Auto) % [place] % (Auto) % Eos % (Auto) % Baso % (Auto) % Neut # (Auto) (1.4-6.5) K/uL Lymph # (Auto) (1.2-3.4) K/uL [place] # (Auto) (0.11-0.59) K/uL Eos # (Auto) (0-0.5) K/uL Baso # (Auto) (0-0.2) K/uL Immature Gran # (Auto) (0.00-0.02) K/uL Sodium (136-145) mmol/L Potassium (3.5-5.1) mmol/L Chloride (98-107) mmol/L Carbon Dioxide (21-32) mmol/L Anion Gap (3-11) BUN (6-23) mg/dl Creatinine (0.6-1.4) mg/dl Est Cr Clr Drug Dosing ml/min Est GFR ( Amer) ml/min Est GFR (Non-Af Amer) ml/min BUN/Creatinine Ratio (10-20) Glucose (70-99(Fasting)) mg/dl Calcium (8.5-10.1) mg/dl Magnesium 1.9 (1.7-2.4) mg/dl Total Bilirubin (0.2-1.0) mg/dl AST (13-39) U/L ALT (7-52) U/L Alkaline Phosphatase (34-104) U/L Troponin I (0-0.04) ng/ml Total Protein (6.0-8.3) gm/dl Albumin (3.4-5.0) gm/dl Globulin (2.5-4.0) gm/dl Albumin/Globulin Ratio (0.9-2) TSH (0.300-4.500) uIu/ml Urine Color Yellow Urine Appearance Clear (Clear) Urine pH 6.5 (4.5-7.5) Ur Specific [place] 1.014 (1.000-1.030) Urine Protein Negative (Negative) Urine Glucose (UA) Negative (Negative) Urine Ketones Negative (Negative) Urine Blood Negative (Negative) Urine Nitrite Negative (Negative) Urine Bilirubin Negative (Negative) Urine Urobilinogen Negative (Negative) Ur Leukocyte Esterase Negative (Negative) Salicylates (3.0-30) mg/dl Urine Opiates Screen Neg (Neg) Ur Methadone, Qual Neg (Neg) Acetaminophen (10-30) ug/ml Urine Barbiturates Neg (Neg) Ur Phencyclidine (PCP) Neg (Neg) U Amphetamin/Meth Scrn Neg (Neg) MDMA (Ecstasy) Screen Neg (Neg) U Benzodiazepines Scrn Pos H (Neg) Ur Cocaine Metabolite Neg (Neg) U Marijuana (THC) Screen Neg (Neg) Ethyl Alcohol mg/dL (<10.0) mg/dl SARS-CoV-2, RNA, NAAT (NEGATIVE) 11/22/21 Range/Units 14:28 WBC (4.8-10.8) K/uL RBC (4.7-6.1) M/uL Hgb (14.0-18.0) g/dL Hct (42-52) % MCV (80-100) fL MCH (25-34) pg MCHC (32-36) g/dL RDW Std Deviation (36.4-46.3) fL RDW Coeff of Bryanna (11.5-14.5) % Plt Count (130-400) K/uL MPV (7.4-10.4) fL Immature Gran % (Auto) % Neut % (Auto) % Lymph % (Auto) % [place] % (Auto) % Eos % (Auto) % Baso % (Auto) % Neut # (Auto) (1.4-6.5) K/uL Lymph # (Auto) (1.2-3.4) K/uL [place] # (Auto) (0.11-0.59) K/uL Eos # (Auto) (0-0.5) K/uL Baso # (Auto) (0-0.2) K/uL Immature Gran # (Auto) (0.00-0.02) K/uL Sodium (136-145) mmol/L Potassium (3.5-5.1) mmol/L Chloride (98-107) mmol/L Carbon Dioxide (21-32) mmol/L Anion Gap (3-11) BUN (6-23) mg/dl Creatinine (0.6-1.4) mg/dl Est Cr Clr Drug Dosing ml/min Est GFR ( Amer) ml/min Est GFR (Non-Af Amer) ml/min BUN/Creatinine Ratio (10-20) Glucose (70-99(Fasting)) mg/dl Calcium (8.5-10.1) mg/dl Magnesium (1.7-2.4) mg/dl Total Bilirubin (0.2-1.0) mg/dl AST (13-39) U/L ALT (7-52) U/L Alkaline Phosphatase (34-104) U/L Troponin I (0-0.04) ng/ml Total Protein (6.0-8.3) gm/dl Albumin (3.4-5.0) gm/dl Globulin (2.5-4.0) gm/dl Albumin/Globulin Ratio (0.9-2) TSH (0.300-4.500) uIu/ml Urine Color Urine Appearance (Clear) Urine pH (4.5-7.5) Ur Specific [place] (1.000-1.030) Urine Protein (Negative) Urine Glucose (UA) (Negative) Urine Ketones (Negative) Urine Blood (Negative) Urine Nitrite (Negative) Urine Bilirubin (Negative) Urine Urobilinogen (Negative) Ur Leukocyte Esterase (Negative) Salicylates (3.0-30) mg/dl Urine Opiates Screen (Neg) Ur Methadone, Qual (Neg) Acetaminophen (10-30) ug/ml Urine Barbiturates (Neg) Ur Phencyclidine (PCP) (Neg) U Amphetamin/Meth Scrn (Neg) MDMA (Ecstasy) Screen (Neg) U Benzodiazepines Scrn (Neg) Ur Cocaine Metabolite (Neg) U Marijuana (THC) Screen (Neg) Ethyl Alcohol mg/dL (<10.0) mg/dl SARS-CoV-2, RNA, NAAT NEGATIVE (NEGATIVE) Imaging Data Radiologist's Impression: Chest X-Ray 11/22/21 15:35 XR chest 1V portable HISTORY: Atypical chest pain COMPARISON: Chest 03/15/2021. FINDINGS: The lungs are clear. Cardiac silhouette is normal in size. No pleural effusions. No pneumothorax. IMPRESSION: No acute process. ACT 112: Negative or not required by law. Electronically signed by: Martinez Quarles M.D. 11/22/2021 4:51 PM ECG Data Attestation: I personally reviewed and interpreted this ECG as follows: Indication: + tachycardia Rate (beats per minute): 108 Rhythm: + sinus tachycardia ECG Intervals/blocks: + Normal QRS and + Normal QT ECG [place]: + Normal ECG Findings: no PACs or no PVCs Comparison ECG Date: from (03/15/21) Change: the following changes noted (Rate has increased otherwise no significant change) MDM Narrative This patient comes in as described above. He has been feeling anxiou. He is been self-medicating with alcohol and drinks daily. At this point he has no shakiness and does not appear to be withdrawing. Acutely but his alcohol level was significant elevated to 69. I did also order an EKG and troponin and IV. He has no signal electrolyte or metabolic abnormalities has no white count or fever to suggest infection. Clinically he does not appear to have an allergic reaction on exam. His EKG does not suggest any ischemic changes and troponin is negative. He has no significant electrolyte or metabolic abnormalities his blood alcohol is elevated in the high 200s besides that there is no other toxicologic concerns. He was given Ativan 1 mg IV as he seemed a little anxious he did not seem to be withdrawing initially but we kept him on a monitor to keep an eye on that. He was given a banana bag with IV nutrients. He was observed while he sobered up in the emergency department. His Covid test was negative. I did reassess him several times. At 6:30 PM, he was sleeping comfortably with 70 heart rate therefore not withdrawing. He did sleep for a couple hours and only woke up he said he was feeling anxious. He was not significantly tachycardic. He was given additional Ativan 1 mg IV. He did well with this and did require additional IV Ativan 0.5 mg he was evaluated by Emeterio her psychiatric caser up. The patient does not have a plan to hurt himself but he is very anxious about going home his and dog left to stay at his sisters as his does have mental health illness as well and was worried about being around him. He is looking to get some help for substance abuse. He does not feel he is safe to go home Emeterio is talked to him in the game plan is to have him further evaluated in the morning by her psychiatric caser up and try to get him in with rehab.He will be signed out to Dr. Mortensen at shift change. Continuous cardiac monitoring: Orders placed in EMR for continuous director of cardiac rehabilitation. Upon my interpretation patient is noted to be sinus tachycardia with a rate of 100 Impression & Plan Alcohol abuse, Anxiety, Chest pain, Lab test negative for COVID-19 virus Discharge Plan Visit Data Chief Complaint: Mental Health Evaluation Stated Complaint: MHID ED Provider: Emeterio Polanco Discharge Problem: Alcohol abuse, Anxiety, Chest pain, Lab test negative for COVID-19 virus Forms Stand Alone Forms: My [facility], Suicide Prevention Resources Prescriptions Prescriptions: No Action No Known Home Medications RF: 0 Referrals Referrals: Bri Cervantes MD [Primary Care Provider] -
[2021-11-22 15:33] LABS: Amphetamines+Metham, Urine Neg (Neg); Barbiturates, Urine Neg (Neg); Benzodiazepine, Urine Pos (Neg); Cocaine, Urine Neg (Neg); MDMA (Ecstacy), Urine Neg (Neg); Methadone, Urine Neg (Neg); Opiate, Urine Neg (Neg); Phencyclidine, Urine Neg (Neg)
[2021-11-22] MEDS ORDERED: LORazepam 1 MG/2 ML VIAL IV STA ×2 (15:44→20:42)
[2021-11-22] MEDS ORDERED: MULTI-VITAMIN INFUSION 10 ML, THIAMINE HCL 100 MG, FOLIC ACID 1 MG in SODIUM CHLORIDE 0... IV ONE (16:29)
--- NOTE | 2021-11-22 16:53 | XRay Report ---
XR chest 1V portable HISTORY: Atypical chest pain COMPARISON: Chest 03/15/2021. FINDINGS: The lungs are clear. Cardiac silhouette is normal in size. No pleural effusions. No pneumot horax. IMPRESSION: No acute process. ACT 112: Negative or not required by law. Electronically signed by: Martinez Quarles M.D. 11/22/2021 4:51 PM
[2021-11-22] MEDS ORDERED: LORazepam 0.5 MG/1 ML VIAL IV STA (22:34)
--- NOTE | 2021-11-23 00:05 | Emergency Department Note ---
ED Visit Note This case was signed out to me at change of shift awaiting further evaluation by the ED case management department and referral to [facility] drug and alcohol in the morning. We will watch for signs of alcohol withdrawal overnight. Patient is interested in alcohol rehab. The patient had become increasingly anxious was given a dose of IV Ativan. This helped for short period of time and he was able to rest but then became anxious again. I had a conversation with the patient and he told me that Ativan will sometimes make his anxiety worse. He also complained of some itchiness. He states that Librium has helped him in the past. The patient was given a dose of oral Librium until he can be evaluated by the ED psychiatric case management for referral to [facility] drug and alcohol for rehab. Patient was finally able to rest after receiving the Librium. The case will be signed out to Dr. Coreas at change of shift for final d isposition once he is further evaluated by the ED psychiatric egg caser. . : Chest pain Qualifiers: Chest pain type: unspecified Qualified Code(s): R07.9 - Chest pain, unspecified
[2021-11-23] MEDS ORDERED: LORazepam 1 MG/2 ML VIAL IV STA (00:47)
[2021-11-23] MEDS ORDERED: GI COCKTAIL ED USE PO ONE (04:17)
[2021-11-23] MEDS ORDERED: chlordiazePOXIDE HCl 25 MG CAP PO ONE (04:17)
[2021-11-23] MEDS ORDERED: POLYETHYLENE (MIRALAX) 17 GM PACK PO PRN (10:17)
[2021-11-23] MEDS ORDERED: ALUMINUM/MAGNESIUM SUSP 30 ML UDC PO PRN (10:17)
[2021-11-23] MEDS ORDERED: MAGNESIUM HYDROXIDE SUSP 30 ML UDC PO PRN (10:17)
[2021-11-23] MEDS ORDERED: LORazepam 1 MG/2 ML VIAL IV PRN (10:17)
[2021-11-23] MEDS: chlordiazePOXIDE HCl 25 MG CAP PO PRN ×2 (11:09→20:00)
[2021-11-23] MEDS: THIAMINE HCL 100 MG TAB PO SCH (11:09)
[2021-11-23] MEDS: FOLIC ACID 1 MG TAB PO SCH (11:09)
--- NOTE | 2021-11-23 11:20 | Electrocardiogram Report ---
Test Reason : Blood Pressure : / mmHG Vent. Rate : 108 BPM Atrial Rate : 108 BPM P-R Int : 154 ms QRS Dur : 102 ms QT Int : 346 ms P-R-T Axes : 051 068 027 degrees QTc Int : 463 ms Poor data quality, interpretation may be adversely affected Sinus tachycardia Possible Left atrial enlargement RSR' or QR pattern in V1 suggests right ventricular conduction delay Borderline ECG When compared with ECG of 15-MAR-2021 13:01, No significant change was found Confirmed by Shayne Colón ([id number]) on 11/23/2021 11:19:49 AM Referred By: REFERRED SELF Confirmed By:Shayne Colón
--- NOTE | 2021-11-23 13:33 | Medical Student Progress Note ---
Date of Service November 23, 2021 Please note that this document will serve as his admission H&P Assessment & Plan (1) Alcohol withdrawal: Plan: -Patient with known history of alcohol use disorder; serum EtOH 269.1mg/dL on admission -Of note, patient's UDS on admission was positive for benzodiazepines; patient claims he last took klonopin one week ago -AWSS protocol with ativan - most recent score: 2 (2/2 at 12:17) -Continue librium 50mg tid prn -PO fluid intake adequate at this time; IVF not indicated; reassess daily -Continue thiamine, folate supplementation -Will continue to encourage alcohol use reduction or cessation; will discuss naltrexone therapy prior to discharge Transaminitis -On admission, AST elevated to 70, ALT elevated to 60; AlkP and Tbili wnl -No intervention indicated at this time -Recommend outpatient follow-up FEN: gluten-free, lactose intolerant diet Code status: full code DVT ppx: not indicated at this time; reevaluate if patient does not ambulate much Held home meds: klonopin Isolation: none Consults: none PT/OT: ordered Case management: following Dispo: med/surg Admission and Anticipated Discharge Date Admission Date: November 23, 2021 Supervising Attestation Please note that this note will serve as his admission H&P I personally examined the patient and verified all abel points of history and exam, discussed case, and agree with decision making with Som STERN Significant alcohol intake over the last few weeks. Has been trying to quit, and then life stressors kicked uplast drink not quite 24 hours ago. About a handle of hard liquor a day. Anxious and shaky. Significant life stressorslargely centering around his and her mental health issues. Notes a lot of the time once life stressors start to kick up more he turns to alcohol to try to quiet the anxiety symptoms. He has actually started already with psychiatry has had some counseling, was initiated on benzodiazepines as an outpatienthe does not really think they helped all that muchas well as Lamictalwhich he has not yet started because he was worried about the effect on his liver. He is very willing to work on counseling. Currently he and his are living separately as they try to regroup with her own struggles. Interested in naltrexone after discharge. Past medical history alcohol abuse and anxiety, no significant surgical hx. drinking currently ~1.5L EtOH daily, no significant faimly hx vitals noted gen aaox3 pleasant but somewhat anxious nad. heent nc at mmm. breathing unlabored no accessory muscles good effort skin no rashes no pallor or icterus neuro no overt tremor when i see him cn 2-12 grossly intact gross motor/sensory intact mental status anxious mood/affect but good judgement and insight EtOH abuse/withdrawal - feels better w librium will utilize rather than ativan given pt preference. follow- right now somewhat hard to discern if sx from mild withdrawal or severe anxiety Anxietyapplauded current efforts. Gave recommendations for how to seek counseling/psychology. Discussed overall coping strategies etc. DVT prophylaxisambulation Otherwise as above Subjective 31 y/o male with a history of alcohol use disorder who presented to the ED yesterday (11/22) afternoon for alcohol withdrawal symptoms. The patient states that he been to the ED twice in the past year for alcohol withdrawal and has been in the ED a total of four times for issues caused by his alcohol use in the past year and a half. His last trip to the ED was 11/19 for a headache due to his alcohol use. The patient said he first saw a psychiatrist around 20 days ago who prescribed him clonazepam. He took one dose of the prescribed clonazepam, which he said made him drowsy and have difficulty breathing. He states that this caused him to go on a week long drinking binge. The patient states that in the past week he has gone through between 5.5 and 6 handles of vodka this week and has been having at least 30 drinks a day (patient unclear regarding volume of each of the 30 daily drinks). The patient states that he has gone through multiple alcohol withdrawals at home by himself. He came in to the ED this time due to the amount of anxiety he was having as well as auditory and visual hallucinations (hearing and seeing people coming in and out of his room, when nobody was actually present). This is the first time the patient has experienced hallucinations during withdrawal. He does not have any prior history of seizures associated with alcohol withdrawal. This morning he is not experiencing any hallucinations. He feels anxious and tense. He does not have a headache but does say that he is having some brain fog. He states that he feels feverish with chills. He is also having back pain that he states, "is around my kidneys". He states that he doesn't want to take Ativan because it makes him itch and prefers librium. He also states that he does not want IV meds because it made him itchy earlier. He has recently been seeing his PCP and found a psychiatric nurse practitioner because he wants to stop drinking. He states that his drinking has been hurting a lot of people around him. He would like to start taking naltrexone. Review of Systems Review of Systems: All systems reviewed & are unremarkable except as noted in HPI & below See HPI Physical Exam Respiratory: Clear to auscultation Cardiovascular: Regular rhythm, slightly tachycardic, no murmurs rubs or gallops Neurologic: Alert and oriented x3, moderate tremor of hands bilaterally Results & Data ([facility]) Vital Signs (Past 12 Hours) Vital Signs Temp Pulse Resp BP Pulse Ox 11/23/21 12:16 36.6 C 80 18 143/89 H 97 11/23/21 10:22 37 C 87 18 135/73 98 11/23/21 10:19 37 C 87 18 135/73 98 11/23/21 09:43 37 C 60 16 138/80 99 11/23/21 09:00 37.4 C 104 H 22 148/100 H 99 11/23/21 07:24 36.7 C 104 H 22 133/95 97 11/23/21 04:53 90 20 128/80 98 11/23/21 03:28 87 97 Laboratory Results Laboratory Results - last 24 hr 11/22/21 11/22/21 11/22/21 14:23 14:23 14:23 WBC 6.98 RBC 5.02 Hgb 16.7 Hct 49.2 MCV 98.0 MCH 33.3 MCHC 33.9 RDW Std Deviation 48.4 H RDW Coeff of Bryanna 13.6 Plt Count 237 MPV 10.4 Immature Gran % (Auto) 0.1 Neut % (Auto) 51.2 Lymph % (Auto) 40.0 Martin % (Auto) 7.0 Eos % (Auto) 1.0 Baso % (Auto) 0.7 Neut # (Auto) 3.57 Lymph # (Auto) 2.79 Martin # (Auto) 0.49 Eos # (Auto) 0.07 Baso # (Auto) 0.05 Immature Gran # (Auto) 0.01 Sodium 139 Potassium 3.6 Chloride 101 Carbon Dioxide 26 Anion Gap 12 H BUN 12 Creatinine 1.01 Est Cr Clr Drug Dosing 113.9 Est GFR ( Amer) 115.1 Est GFR (Non-Af Amer) 99.3 BUN/Creatinine Ratio 11.9 Glucose 174 H Calcium 9.9 Magnesium Total Bilirubin 0.6 AST 70 H ALT 60 H Alkaline Phosphatase 50 Troponin I Total Protein 8.1 Albumin 4.9 Globulin 3.2 Albumin/Globulin Ratio 1.5 TSH 1.002 Urine Color Urine Appearance Urine pH Ur Specific Corder Urine Protein Urine Glucose (UA) Urine Ketones Urine Blood Urine Nitrite Urine Bilirubin Urine Urobilinogen Ur Leukocyte Esterase Salicylates Urine Opiates Screen Ur Methadone, Qual Acetaminophen Urine Barbiturates Ur Phencyclidine (PCP) U Amphetamin/Meth Scrn MDMA (Ecstasy) Screen U OH-Alprazolam Confrm U Benzodiazepines Scrn 7-Amino Clonazepam Ur Nordiazepam Confirm U OH-ethylflurazepam U Lorazepam Cnf GC/MS U Oxazepam Confm GC/MS Ur Temazepam Confirm U OH-Triazolam Confirm U OH-Midazolam Confirm Ur Cocaine Metabolite U Marijuana (THC) Screen Drug Screen Comment Ethyl Alcohol mg/dL SARS-CoV-2, RNA, NAAT 11/22/21 11/22/21 11/22/21 14:23 14:23 14:23 WBC RBC Hgb Hct MCV MCH MCHC RDW Std Deviation RDW Coeff of Bryanna Plt Count MPV Immature Gran % (Auto) Neut % (Auto) Lymph % (Auto) Martin % (Auto) Eos % (Auto) Baso % (Auto) Neut # (Auto) Lymph # (Auto) Martin # (Auto) Eos # (Auto) Baso # (Auto) Immature Gran # (Auto) Sodium Potassium Chloride Carbon Dioxide Anion Gap BUN Creatinine Est Cr Clr Drug Dosing Est GFR ( Amer) Est GFR (Non-Af Amer) BUN/Creatinine Ratio Glucose Calcium Magnesium Total Bilirubin AST ALT Alkaline Phosphatase Troponin I < 0.03 Total Protein Albumin Globulin Albumin/Globulin Ratio TSH Urine Color Urine Appearance Urine pH Ur Specific Corder Urine Protein Urine Glucose (UA) Urine Ketones Urine Blood Urine Nitrite Urine Bilirubin Urine Urobilinogen Ur Leukocyte Esterase Salicylates < 3.0 L Urine Opiates Screen Ur Methadone, Qual Acetaminophen < 3 L Urine Barbiturates Ur Phencyclidine (PCP) U Amphetamin/Meth Scrn MDMA (Ecstasy) Screen U OH-Alprazolam Confrm U Benzodiazepines Scrn 7-Amino Clonazepam Ur Nordiazepam Confirm U OH-ethylflurazepam U Lorazepam Cnf GC/MS U Oxazepam Confm GC/MS Ur Temazepam Confirm U OH-Triazolam Confirm U OH-Midazolam Confirm Ur Cocaine Metabolite U Marijuana (THC) Screen Drug Screen Comment Ethyl Alcohol mg/dL 269.1 H SARS-CoV-2, RNA, NAAT 11/22/21 11/22/21 11/22/21 14:23 14:28 14:28 WBC RBC Hgb Hct MCV MCH MCHC RDW Std Deviation RDW Coeff of Bryanna Plt Count MPV Immature Gran % (Auto) Neut % (Auto) Lymph % (Auto) Martin % (Auto) Eos % (Auto) Baso % (Auto) Neut # (Auto) Lymph # (Auto) Martin # (Auto) Eos # (Auto) Baso # (Auto) Immature Gran # (Auto) Sodium Potassium Chloride Carbon Dioxide Anion Gap BUN Creatinine Est Cr Clr Drug Dosing Est GFR ( Amer) Est GFR (Non-Af Amer) BUN/Creatinine Ratio Glucose Calcium Magnesium 1.9 Total Bilirubin AST ALT Alkaline Phosphatase Troponin I Total Protein Albumin Globulin Albumin/Globulin Ratio TSH Urine Color Yellow Urine Appearance Clear Urine pH 6.5 Ur Specific Corder 1.014 Urine Protein Negative Urine Glucose (UA) Negative Urine Ketones Negative Urine Blood Negative Urine Nitrite Negative Urine Bilirubin Negative Urine Urobilinogen Negative Ur Leukocyte Esterase Negative Salicylates Urine Opiates Screen Neg Ur Methadone, Qual Neg Acetaminophen Urine Barbiturates Neg Ur Phencyclidine (PCP) Neg U Amphetamin/Meth Scrn Neg MDMA (Ecstasy) Screen Neg U OH-Alprazolam Confrm U Benzodiazepines Scrn Pos H 7-Amino Clonazepam Ur Nordiazepam Confirm U OH-ethylflurazepam U Lorazepam Cnf GC/MS U Oxazepam Confm GC/MS Ur Temazepam Confirm U OH-Triazolam Confirm U OH-Midazolam Confirm Ur Cocaine Metabolite Neg U Marijuana (THC) Screen Neg Drug Screen Comment Ethyl Alcohol mg/dL SARS-CoV-2, RNA, NAAT 11/22/21 11/22/21 14:28 14:28 WBC RBC Hgb Hct MCV MCH MCHC RDW Std Deviation RDW Coeff of Bryanna Plt Count MPV Immature Gran % (Auto) Neut % (Auto) Lymph % (Auto) Martin % (Auto) Eos % (Auto) Baso % (Auto) Neut # (Auto) Lymph # (Auto) Martin # (Auto) Eos # (Auto) Baso # (Auto) Immature Gran # (Auto) Sodium Potassium Chloride Carbon Dioxide Anion Gap BUN Creatinine Est Cr Clr Drug Dosing Est GFR ( Amer) Est GFR (Non-Af Amer) BUN/Creatinine Ratio Glucose Calcium Magnesium Total Bilirubin AST ALT Alkaline Phosphatase Troponin I Total Protein Albumin Globulin Albumin/Globulin Ratio TSH Urine Color Urine Appearance Urine pH Ur Specific Corder Urine Protein Urine Glucose (UA) Urine Ketones Urine Blood Urine Nitrite Urine Bilirubin Urine Urobilinogen Ur Leukocyte Esterase Salicylates Urine Opiates Screen Ur Methadone, Qual Acetaminophen Urine Barbiturates Ur Phencyclidine (PCP) U Amphetamin/Meth Scrn MDMA (Ecstasy) Screen U OH-Alprazolam Confrm Pending U Benzodiazepines Scrn 7-Amino Clonazepam Pending Ur Nordiazepam Confirm Pending U OH-ethylflurazepam Pending U Lorazepam Cnf GC/MS Pending U Oxazepam Confm GC/MS Pending Ur Temazepam Confirm Pending U OH-Triazolam Confirm Pending U OH-Midazolam Confirm Pending Ur Cocaine Metabolite U Marijuana (THC) Screen Drug Screen Comment Pending Ethyl Alcohol mg/dL SARS-CoV-2, RNA, NAAT NEGATIVE
--- NOTE | 2021-11-23 17:46 | Billing Data ---
Date of Service November 23, 2021 Coding Level of Care Code 80673 Initial Inpt Care Lvl 2
[2021-11-23] MEDS: ONDANSETRON INJ 2 MG/ML 2 ML VIAL IV PRN (19:48)
[2021-11-23] MEDS: ACETAMINOPHEN 325 MG TAB PO PRN (22:13)
[2021-11-24] MEDS: chlordiazePOXIDE HCl 25 MG CAP PO PRN ×2 (03:28→10:44)
[2021-11-24] MEDS: THIAMINE HCL 100 MG TAB PO SCH (08:35)
[2021-11-24] MEDS: FOLIC ACID 1 MG TAB PO SCH (08:35)
[2021-11-24] MEDS: ONDANSETRON INJ 2 MG/ML 2 ML VIAL IV PRN (08:35)
[2021-11-24] MEDS: ACETAMINOPHEN 325 MG TAB PO PRN (10:46)
--- NOTE | 2021-11-24 18:49 | Discharge Summary ---
Date of Service November 24, 2021 Principal Diagnosis Alcohol withdrawal, anxiety Discharge Exam In general he is awake and alert pleasant no distress. HEENT normocephalic atraumatic mucous membranes moist. Breathing unlabored no accessory muscle use good effort. Skin shows no rashes no pallor or icterus. Neuro without focal deficits. He is not tremulous. His mental status is sound Discharge Data Allergies Allergy/AdvReac Type Severity Reaction Status Date / Time bupropion [From Wellbutrin] AdvReac Severe anxiety, Verified 11/19/21 22:36 confussion buspirone [From BuSpar] AdvReac Intermediate Shaking/john Verified 11/19/21 22:36 mor gluten/dairy free AdvReac Severe Headache Uncoded 11/19/21 22:36 antihistamines AdvReac Intermediate "Just Uncoded 11/19/21 22:36 Don't Feel Right When I Take Them" Consultations 11/23/21 08:06 ED Decision to Admit Stat Hospital Course (1) Alcohol withdrawal: Doing wellsafe for home. At this point his symptoms are very mild and really difficult to distinguish if he still having mild withdrawal or just symptoms related to his anxiety. Either way safe for home. Will ease off of benzos with Librium to round out 3 times daily today and tomorrow, twice daily the next day, daily x1 day and then stop. To return with any symptom worseningalthough this is unlikely. (2) Anxiety: -Extensive discussions the last couple days on a comprehensive management of anxietyhe is already starting to set things in motion with hang use his psychiatrist, is going to get into counseling, is going to work on stress management, etc. -Discussed that medication management has an overall limited benefitthat while it can be helpful, definitely the other "hard work" is often far more important in improving the situation -Definitely appears to drink to "self medicate" for the anxiety -Discussed possible benefit from SSRIhe agrees, but did want to discuss with his psychiatrist further to get their input, as well as simply because he has several family members who are bipolar, and while he has not shown a manic episode in the past, wants to make sure he either to has several opinions that he does not have bipolar before starting an SSRI, or being on a mood stabilizer first. (3) Alcohol abuse: Wants to start naltrexonethis is reasonable. Only mild transaminitis (alcohol related, definitely not enough to preclude starting). Outpatient follow-up. Continue thiamine and folate. Total Time Total Time Spent Total Time Spent (In Minutes): Greater than 30 Discharge Plan Discharge Items Patient Disposition: Home - Self-Care Reason For Visit: ETOH WITHDRAWAL Discharge Diagnosis: anxiety, improving alcohol withdrawal Activity: Resume your previous activity Non-emergency contact: Primary Care Provider and Psychiatrist Call non-emergency contact if: you have any medication questions and your symp toms worsen Follow-up/Referrals: Bri Cervantes MD [Primary Care Provider] - 11/29/21 10:20 am Diet: Regular Addtl Attending Provider Instructions: Alcohol withdrawal -As we discussed, your symptoms appear to be improving nicelyit appears quite safe to get you home. While the symptoms would almost certainly improve on their own, to help even things out a little bit we will do a few more days of the Librium. Take a dose when you get home and a dose at bedtime . 3 doses tomorrow. 2 doses Sunday. 1 dose Sunday. Remember that even after the dose Sunday, it is a medicine that slowly works its way out of your system, so it will actually continue to taper itself for a little while longer than that -It is extremely unlikely that the withdrawal symptoms would worsencertainly if anything seems bad we would want you evaluated again, but actually if things were to worsen from this point, it would be more likely to be symptoms from anxiety than withdrawal (some of the symptoms of early withdrawal have a tremendous overlap of symptoms with anxiety) -We have sent a prescription for the naltrexone -Continue to take the thiamine and folate for the time beinglike we discussed, if it has been months since any struggle with alcohol and you are doing well, that is when you can probably come off of those vitamins. Otherwise, they tend to protect your nerves from alcohol related nutritional deficiencies Anxiety -As we discussed, you are really doing all the right things to try to improve your situation with anxiety. The problem right now, is that it just takes quite a while for everything you are doing to "take effect" -Continue working with your psychiatrist, and definitely get set up for even more counseling/therapy -Work on different stress management strategies, and work on trying to reevaluate how you view stressful situations (this is all obviously way easier said than done, and takes quite a while, but you will want to keep focused on these types of strategies) -As we discussedas it relates to the Libriumbenzodiazepine type medicines are useful in treating alcohol withdrawal, and also do tend to blunt symptoms of anxiety. That said, they really do not treat any of the underlying biological parts of anxiety. Further, since people can develop dependency fairly quickly on them, they can actually be more harm than good. Remember, as we discussed, it is the kind of thing where once somebody's body is used to a benzodiazepine medicine, when the medicine wears off withdrawal can feel exactly like the anxiety they were using the medicine to treat. This would not be an issue at all with the Librium over the next few days, but I mention it mostly because people can get misled by the temporary relief they feel from a benzodiazepine into thinking that it is the only thing that helps. -For overall treatment of anxiety and depression, the SSRI type medicines (such as Lexapro, Zoloft, Prozac) usually have the best track record. I would not really consider your trial of Lexapro a treatment failure given that you are only on it for about 4 to 5 daysthese types of medicines usually easily take m onths to take effect. You generally do not feel it when you take it, as much as it helps build up serotonin (think of this as a "wellbeing chemical") in your central nervous system. Gradually over time people just tend to have less overwhelming symptoms of anxiety and depression when the medicines are doing what they should. Given that you have lingering questions of the bipolar, it is quite reasonable to continue to follow-up with your psychiatrist before retrying an SSRI, although for what is worth (and obviously I only knew the last 2 days) your situation to me seems to be much more under the umbrella of anxiety and depression than bipolar. -Remember to, appropriate/effective medications for anxiety and depression generally are not the "end all be all" but rather just part of what can help. Generically speaking, you could expect "perfect" medication management to make 20% improvement in your symptoms (obviously this is a bit of an arbitrary numberbut I mention it this way so that you know that the hard work you are doing with counseling/perspective/stress management/etc. is likely to be far more useful in improving the situation and the medicines)to that and definitely keep up the hard work. I have a lot of optimism that you are going to do well. Pending Studies at Discharge: No Stand-Alone Forms: My [facility], Smoking Cessation Medications and DC Order Prescriptions: New chlordiazepoxide HCl 25 mg Capsule 50 mg PO UD Qty: 8 RF: 0 thiamine HCl (vitamin B1) 100 mg Tablet 100 mg PO QAM Qty: 30 RF: 0 folic acid 1 mg Tablet 1 mg PO QAM Qty: 30 RF: 0 naltrexone 50 mg tablet 50 mg PO DAILY Qty: 30 RF: 0 Discontinued clonazepam 0.5 mg Tablet 0.5 mg PO BID PRN (Reason: Anxiety) RF: 0 Discharge Orders: Discharge Order (Routine); Ordered 11/24/21 Ordered By: Jesse Matthew Admission Data Admit Date/Time: 11/23/21 17:45 Attending Provider: Jesse Matthew Admit Provider: Jesse Matthew Primary Care Provider: Bri Cervantes Other Providers: Jesse Matthew Other Interventions: Discharge Summary Assessment (RN) Last Done: 11/24/21 14:16 Coding Level of Care Code D/C DAY MANAGEMENT >30 MINS Diagnoses Alcohol withdrawal F10.239 Anxiety F41.9 Alcohol abuse F10.10
[2021-11-25 01:51] LABS: 7-Aminoclonaz, Confirm NEGATIVE ng/mL (<25); Hydro-Alp Ur, GC/MS NEGATIVE ng/mL (<25); Hydroxyethylflurazepam, Conf NEGATIVE ng/mL (<50); Hydroxymidazolam Ur, GC/MS NEGATIVE ng/mL (<50); Hydroxytriazolam NEGATIVE ng/mL (<50); Lorazepam, Ur GC/MS NEGATIVE ng/mL (<50); Nordiazepam, Confirm NEGATIVE ng/mL (<50); Oxazepam Ur, GC/MS NEGATIVE ng/mL (<50); Temazepam, Confirm NEGATIVE ng/mL (<50)
--- NOTE | 2021-12-06 15:43 | Coding Query ---
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 Please assist us with the question(s) below: Coding Question(s): Pt admitted for alcohol withdrawl . Seeking to clarify type of alcohol withdrawl. Please check appropriate phrase below. Thank you . BEATRIZ Martinez [facility] Physician's Response(s): ___x Pt was admitted for alcohol dependence with withdrawl Pt was admitted for alcohol abuse with withdrawl Cannot clinically correlate if patient was admitted for alcohol abuse or dependence Other: please document: Principal Diagnosis: "that condition established after study, to be chiefly responsible for occasioning the admission of the patient to the hospital for care." Co-Existing Principal Diagnosis: "when two or more diagnoses equally meet the criteria for principal diagnosis as determined by the circumstances of admission, diagnostic work up, and/or therapy provided, and the Alphabetic Index, Tabular List, or another coding guideline does not provide sequencing direction, any one of the diagnoses may be sequenced first." "When the physician has documented what appears to be a current diagnosis in the body of the record, but has not included the diagnosis in the final diagnostic statement, the physician should be asked whether the diagnosis should be added." (Source Coding Clinic 2 QTR90. p3-4) ROMAINE
== END 2021-11-24 15:00 | disposition home or self-care (01) | DRG 897 ==
LOC: 3N 14:00 → ED 14:00 → 3N 11-23 09:56

== ENCOUNTER 2022-01-02 14:20 | Inpatient (IN) ==
[2022-01-02] MEDS ORDERED: SODIUM CHLORIDE 0.9% 1000ML 1,000 ML IV ONE (15:25)
[2022-01-02] MEDS ORDERED: MULTI-VITAMIN INFUSION 10 ML, THIAMINE HCL 100 MG, FOLIC ACID 1 MG in SODIUM CHLORIDE 0... IV ONE (15:46)
[2022-01-02 15:57] LABS: Mean Corpuscular Hgb Conc 35.6 g/dL (32-36); Platelet Count 190 K/uL (130-400)
--- NOTE | 2022-01-02 15:59 | Emergency Department Note ---
History of Present Illness General Chief complaint: Flu Like Symptoms Stated complaint: WEAKNESS, SOB, FEVER Time Seen by Provider: 01/02/22 14:47 History of Present Illness Maximum Pain Intensity: 4 This is a 31-year-old male with a history of alcohol abuse, anxiety, alcohol withdrawal, accompanied by his who presents with multiple symptoms that have been present over the past week to 1.5 weeks including generalized weakness, fatigue, abdominal pain, anorexia, headache, cough. He vomited several times 1 week ago but nothing since. Today he had black stool. States that he took Pepto-Bismol 2 days ago. His offers that he has been laying around not doing much over the past week and has been intermittently confused, not always making sense. Patient states he wakes up, drinks alcohol, and just wants to go back to sleep. Patient endorses seeing flashes of light and intermittently feels bubbling sensations in the back of his neck especially at nighttime. Because he has been feeling so poorly, he has been attempting to taper his alcohol consumption over the past week. Last drink was 3 to 4 hours ago. Normally he drinks 25-30 vodka drinks per day. He has withdrawn in the past from alcohol but does not feel like he is withdrawing right now. He states that benzodiazepines cause him more anxiety, Librium has helped in the past for withdrawal. Patient is unsure about the nature of his abdominal pain, although he points to the top and bottom parts of his abdomen when asked where it is located. 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 Denies any substance use. Endorses a fever about 1 week ago, nothing since Denies any sore throat, sinus congestion, shortness of breath, chest pain, hematemesis, coffee-ground emesis, bright red blood per rectum, hematuria, myalgias or joint pain, skin rash. No prior abdominal surgical history. Home Medications Medication Instructions Recorded Confirmed Type chlordiazepoxide HCl 25 mg capsule 50 mg PO UD #8 cap 11/24/21 01/02/22 Rx folic acid 1 mg tablet 1 mg PO QAM #30 tab 11/24/21 01/02/22 Rx naltrexone 50 mg tablet 50 mg PO DAILY #30 tab 11/24/21 01/02/22 Rx thiamine HCl (vitamin B1) 100 mg 100 mg PO QAM #30 tab 11/24/21 01/02/22 Rx tablet clonazepam 0.5 mg tablet 0.5 mg PO BID PRN #60 tab 12/01/21 01/02/22 Rx Allergies Allergy/AdvReac Type Severity Reaction Status Date / Time bupropion [From Wellbutrin] AdvReac Severe anxiety, Verified 01/02/22 15:05 confussion buspirone [From BuSpar] AdvReac Intermediate Shaking/john Verified 01/02/22 15:05 mor gluten/dairy free AdvReac Severe Headache Uncoded 01/02/22 15:05 antihistamines AdvReac Intermediate "Just Uncoded 01/02/22 15:05 Don't Feel Right When I Take Them" Past Med/Surg History Medical History Abdominal pain Acute sinusitis Alcohol abuse with alcohol-induced anxiety disorder Chest pain Dizziness BRITTNY (generalized anxiety disorder) Headache Hypokalemia Lab test negative for COVID-19 virus Left leg cellulitis No pertinent family history Pain, dental Surgical History No pertinent past surgical history Family History Other No significant family history Social History Smoking Status: Former smoker Tobacco Type: Cigarettes Hx Alcohol Use: Yes Alcohol type: hard liquor Hx Substance Use: No Preferred Language: Georgian Communication Ability: Effective Threading 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 Feeder Automatic Required: No Beliefs That Will Affect Care: None marital status: Current Living Situation: Spouse current occupational status: employed Feels Safe at Home: Yes Assistive Devices: Glasses Review of Systems Constitutional: + malaise, + weakness and + anorexia; no chills and no body aches Eyes: + seeing flashes; no diplopia Ear, Nose, Mouth, Throat: no nasal congestion and no sore throat Respiratory: + cough; no dyspnea and no hemoptysis Cardiovascular: no chest pain Gastrointestinal: + abdominal pain, + vomiting (1 week ago) and + melena; no nausea, no coffee ground emesis, no hematemesis, no constipation and no diarrhea/loose stools Musculoskeletal: no neck pain, no joint pain and no myalgia Integumentary: no rash, no lesions and no erythema Neurologic: no unsteadiness, no localized weakness, no generalized weakness, no numbness, no paresthesia, no dizziness, no syncope, no headache(s) and no confusion Psychiatric: + anxiety, + confusion, + hallucinations, + visual hallucinations and + substance abuse Hematologic / Lymphatic: no easy bleeding, no easy bruising and no lym phadenopathy Physical Exam Vital Signs Vital Signs - 24 hr 01/02/22 14:22 01/02/22 15:37 01/02/22 17:00 Temperature 98.1 F Temperature Source Temporal Artery Scan Pulse Rate 100 H Pulse Rate [Apical] 83 90 Pulse Rhythm [Apical] Regular Regular Respiratory Rate 18 16 15 Respiratory Depth Normal Normal Blood Pressure 137/84 Blood Pressure [Left Arm] 131/90 131/90 Blood Pressure Mean 101 Blood Pressure Mean [Left Arm] 103 103 Pulse Oximetry 96 96 97 Oxygen Delivery Method Room Air Room Air Room Air Sepsis Recent Fever Within 48 Hours No Sepsis New/Unexplained Change in Mental Status No Sepsis Action Taken by Nursing No Action Required 01/02/22 18:00 01/02/22 18:30 01/02/22 19:08 Temperature Temperature Source Pulse Rate 94 H 74 94 H Pulse Rate [Apical] Pulse Rhythm [Apical] Respiratory Rate 16 13 18 Respiratory Depth Blood Pressure 132/88 Blood Pressure [Left Arm] Blood Pressure Mean Blood Pressure Mean [Left Arm] Pulse Oximetry 96 Oxygen Delivery Method Room Air Sepsis Recent Fever Within 48 Hours Sepsis New/Unexplained Change in Mental Status Sepsis Action Taken by Nursing CONSTITUTIONAL: Well developed, well nourished young male, intermittently tearful, somewhat altered or intoxicated appearing. HEAD: Normocephalic, atraumatic. EYES: PERRL, conjunctivae normal, extraocular muscles intact. EARS/NOSE/MOUTH/THROAT: Mucous membranes are dry. NECK: Full active range of motion. No spinous process tenderness. RESPIRATORY: Mild intermittent cough. Breathing otherwise unlabored and symmetric. Lungs clear to auscultation bilaterally. CARDIOVASCULAR: Regular rate and rhythm. No murmurs, rubs, or gallops. ABDOMEN: Normal bowel sounds. Diffuse tenderness appreciated. No CVA tenderness bilaterally. No masses. GENITOURINARY: Refused rectal exam MUSCULOSKELETAL: Moves bilateral upper and lower extremities at all joints without pain or difficulty. Back with normal range of motion, nontender. SKIN: [place], warm, dry No diaphoresis.. NEUROLOGIC: Alert and oriented x 3. No facial palsy. No asterixis. No pronator drift. Normal [id number] bilaterally. 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 No tremor. PSYCHIATRIC: Somewhat tangential, intermittently tearful, delayed response at times. Course Administered Medications Discontinued Medications Gabapentin (Gabapentin 1200mg Alcohol Withdrawal Load) 1 ea PO NOW STA; Protocol Stop: 01/02/22 18:41 Last Admin: 01/02/22 19:11 Dose: Not Given Documented by: [id number] Sodium Chloride (Nss 1000ml) 1,000 mls @ 999 mls/hr IV .Q1H1M ONE Stop: 01/02/22 16:25 Last Infusion: 01/02/22 16:14 Dose: 0 mls/hr Documented by: [id number] Admin: 01/02/22 15:44 Dose: 999 mls/hr Documented by: [id number] Multivitamins 10 ml/ Thiamine HCl 100 mg/ Folic Acid 1 mg/Sodium Chloride 1,011.2 mls @ 1,011.2 mls/hr IV .Q1H ONE Stop: 01/02/22 16:45 Last Infusion: 01/02/22 17:34 Dose: 0 mls/hr Documented by: [id number] Admin: 01/02/22 16:14 Dose: 1,011.2 mls/hr Documented by: [id number] Famotidine (Pepcid 20mg Iv Push) 20 mg in 5 mls @ 2.5 mls/min IV NOW STA Stop: 01/02/22 18:30 Last Admin: 01/02/22 19:11 Dose: 2.5 mls/min Documented by: [id number] Ioversol (Optiray 320 100ml) 94 ml IV ONCE ONE Stop: 01/02/22 16:47 Last Admin: 01/02/22 16:46 Dose: 94 ml Documented by: [id number] Lorazepam (Lorazepam 2 Mg/1 Ml Vial) 1 mg IV NOW STA Stop: 01/02/22 18:10 Last Admin: 01/02/22 19:11 Dose: Not Given Documented by: [id number] Medical Decision Making Laboratory Data Result diagrams: 01/02/22 15:39 01/02/22 15:39 Lab Results 03/01/02/22 01/02/22 Range/Units 15:37 15:37 15:39 WBC (4.8-10.8) K/uL RBC (4.7-6.1) M/uL Hgb (14.0-18.0) g/dL Hct (42-52) % MCV (80-100) fL MCH (25-34) pg MCHC (32-36) g/dL RDW Std Deviation (36.4-46.3) fL RDW Coeff of Bryanna (11.5-14.5) % Plt Count (130-400) K/uL MPV (7.4-10.4) fL Immature Gran % (Auto) % Neut % (Auto) % Lymph % (Auto) % [place] % (Auto) % Eos % (Auto) % Baso % (Auto) % Neut # (Auto) (1.4-6.5) K/uL Lymph # (Auto) (1.2-3.4) K/uL [place] # (Auto) (0.11-0.59) K/uL Eos # (Auto) (0-0.5) K/uL Baso # (Auto) (0-0.2) K/uL Immature Gran # (Auto) (0.00-0.02) K/uL Sodium (136-145) mmol/L Potassium (3.5-5.1) mmol/L Chloride (98-107) mmol/L Carbon Dioxide (21-32) mmol/L Anion Gap (3-11) BUN (6-23) mg/dl Creatinine (0.6-1.4) mg/dl Est Cr Clr Drug Dosing ml/min Est GFR ( Amer) ml/min Est GFR (Non-Af Amer) ml/min BUN/Creatinine Ratio (10-20) Glucose (70-99(Fasting)) mg/dl Calcium (8.5-10.1) mg/dl Magnesium (1.7-2.4) mg/dl Total Bilirubin (0.2-1.0) mg/dl AST (13-39) U/L ALT (7-52) U/L Alkaline Phosphatase (34-104) U/L Ammonia (18-72) umol/L Total Protein (6.0-8.3) gm/dl Albumin (3.4-5.0) gm/dl Globulin (2.5-4.0) gm/dl Albumin/Globulin Ratio (0.9-2) Lipase (11-82) U/L TSH (0.300-4.500) uIu/ml Urine Color Urine Appearance (Clear) Urine pH (4.5-7.5) Ur Specific [place] (1.000-1.030) Urine Protein (Negative) Urine Glucose (UA) (Negative) Urine Ketones (Negative) Urine Blood (Negative) Urine Nitrite (Negative) Urine Bilirubin (Negative) Urine Urobilinogen (Negative) Ur Leukocyte Esterase (Negative) Urine Opiates Screen (Neg) Ur Methadone, Qual (Neg) Urine Barbiturates (Neg) Ur Phencyclidine (PCP) (Neg) U Amphetamin/Meth Scrn (Neg) MDMA (Ecstasy) Screen (Neg) U Benzodiazepines Scrn (Neg) Ur Cocaine Metabolite (Neg) U Marijuana (THC) Screen (Neg) Ethyl Alcohol mg/dL 232.7 H (<10.0) mg/dl Influ A Molecular Assay Negative (Negative) Influ B Molecular Assay Negative (Negative) SARS-CoV-2, RNA, NAAT NEGATIVE (NEGATIVE) 01/02/22 01/02/22 01/02/22 Range/Units 15:39 15:39 15:39 WBC 4.83 (4.8-10.8) K/uL RBC 4.70 (4.7-6.1) M/uL Hgb 15.6 (14.0-18.0) g/dL Hct 45.1 (42-52) % MCV 96.0 (80-100) fL MCH 33.2 (25-34) pg MCHC 35.6 (32-36) g/dL RDW Std Deviation 47.7 H (36.4-46.3) fL RDW Coeff of Bryanna 13.4 (11.5-14.5) % Plt Count 190 (130-400) K/uL MPV 10.0 (7.4-10.4) fL Immature Gran % (Auto) 0.2 % Neut % (Auto) 60.7 % Lymph % (Auto) 29.6 % [place] % (Auto) 8.1 % Eos % (Auto) 0.8 % Baso % (Auto) 0.6 % Neut # (Auto) 2.93 (1.4-6.5) K/uL Lymph # (Auto) 1.43 (1.2-3.4) K/uL [place] # (Auto) 0.39 (0.11-0.59) K/uL Eos # (Auto) 0.04 (0-0.5) K/uL Baso # (Auto) 0.03 (0-0.2) K/uL Immature Gran # (Auto) 0.01 (0.00-0.02) K/uL Sodium 140 (136-145) mmol/L Potassium 3.9 (3.5-5.1) mmol/L Chloride 99 (98-107) mmol/L Carbon Dioxide 27 (21-32) mmol/L Anion Gap 14 H (3-11) BUN 8 (6-23) mg/dl Creatinine 0.76 (0.6-1.4) mg/dl Est Cr Clr Drug Dosing 151.4 ml/min Est GFR ( Amer) 141.9 ml/min Est GFR (Non-Af Amer) 122.4 ml/min BUN/Creatinine Ratio 10.5 (10-20) Glucose 80 (70-99(Fasting)) mg/dl Calcium 9.2 (8.5-10.1) mg/dl Magnesium 2.1 (1.7-2.4) mg/dl Total Bilirubin 0.7 (0.2-1.0) mg/dl AST 405 H (13-39) U/L ALT 297 H (7-52) U/L Alkaline Phosphatase 51 (34-104) U/L Ammonia (18-72) umol/L Total Protein 8.0 (6.0-8.3) gm/dl Albumin 5.0 (3.4-5.0) gm/dl Globulin 3.0 (2.5-4.0) gm/dl Albumin/Globulin Ratio 1.7 (0.9-2) Lipase 35 (11-82) U/L TSH 0.776 (0.300-4.500) uIu/ml Urine Color Urine Appearance (Clear) Urine pH (4.5-7.5) Ur Specific [place] (1.000-1.030) Urine Protein (Negative) Urine Glucose (UA) (Negative) Urine Ketones (Negative) Urine Blood (Negative) Urine Nitrite (Negative) Urine Bilirubin (Negative) Urine Urobilinogen (Negative) Ur Leukocyte Esterase (Negative) Urine Opiates Screen (Neg) Ur Methadone, Qual (Neg) Urine Barbiturates (Neg) Ur Phencyclidine (PCP) (Neg) U Amphetamin/Meth Scrn (Neg) MDMA (Ecstasy) Screen (Neg) U Benzodiazepines Scrn (Neg) Ur Cocaine Metabolite (Neg) U Marijuana (THC) Screen (Neg) Ethyl Alcohol mg/dL (<10.0) mg/dl Influ A Molecular Assay (Negative) Influ B Molecular Assay (Negative) SARS-CoV-2, RNA, NAAT (NEGATIVE) 01/02/22 01/02/22 01/02/22 Range/Units 17:18 Unknown Unknown WBC (4.8-10.8) K/uL RBC (4.7-6.1) M/uL Hgb (14.0-18.0) g/dL Hct (42-52) % MCV (80-100) fL MCH (25-34) pg MCHC (32-36) g/dL RDW Std Deviation (36.4-46.3) fL RDW Coeff of Bryanna (11.5-14.5) % Plt Count (130-400) K/uL MPV (7.4-10.4) fL Immature Gran % (Auto) % Neut % (Auto) % Lymph % (Auto) % [place] % (Auto) % Eos % (Auto) % Baso % (Auto) % Neut # (Auto) (1.4-6.5) K/uL Lymph # (Auto) (1.2-3.4) K/uL [place] # (Auto) (0.11-0.59) K/uL Eos # (Auto) (0-0.5) K/uL Baso # (Auto) (0-0.2) K/uL Immature Gran # (Auto) (0.00-0.02) K/uL Sodium (136-145) mmol/L Potassium (3.5-5.1) mmol/L Chloride (98-107) mmol/L Carbon Dioxide (21-32) mmol/L Anion Gap (3-11) BUN (6-23) mg/dl Creatinine (0.6-1.4) mg/dl Est Cr Clr Drug Dosing ml/min Est GFR ( Amer) ml/min Est GFR (Non-Af Amer) ml/min BUN/Creatinine Ratio (10-20) Glucose (70-99(Fasting)) mg/dl Calcium (8.5-10.1) mg/dl Magnesium (1.7-2.4) mg/dl Total Bilirubin (0.2-1.0) mg/dl AST (13-39) U/L ALT (7-52) U/L Alkaline Phosphatase (34-104) U/L Ammonia 25.0 (18-72) umol/L Total Protein (6.0-8.3) gm/dl Albumin (3.4-5.0) gm/dl Globulin (2.5-4.0) gm/dl Albumin/Globulin Ratio (0.9-2) Lipase (11-82) U/L TSH (0.300-4.500) uIu/ml Urine Color Yellow Urine Appearance Clear (Clear) Urine pH 7.0 (4.5-7.5) Ur Specific [place] 1.036 H (1.000-1.030) Urine Protein Negative (Negative) Urine Glucose (UA) Negative (Negative) Urine Ketones 1+ H (Negative) Urine Blood Negative (Negative) Urine Nitrite Negative (Negative) Urine Bilirubin Negative (Negative) Urine Urobilinogen Negative (Negative) Ur Leukocyte Esterase Negative (Negative) Urine Opiates Screen Neg (Neg) Ur Methadone, Qual Neg (Neg) Urine Barbiturates Neg (Neg) Ur Phencyclidine (PCP) Neg (Neg) U Amphetamin/Meth Scrn Neg (Neg) MDMA (Ecstasy) Screen Neg (Neg) U Benzodiazepines Scrn Neg (Neg) Ur Cocaine Metabolite Neg (Neg) U Marijuana (THC) Screen Neg (Neg) Ethyl Alcohol mg/dL (<10.0) mg/dl Influ A Molecular Assay (Negative) Influ B Molecular Assay (Negative) SARS-CoV-2, RNA, NAAT (NEGATIVE) Imaging Data Radiologist's Impression: Abdomen/Pelvis CT 01/02/22 15:21 CT SCAN OF THE ABDOMEN AND PELVIS WITH IV CONTRAST CLINICAL HISTORY: Generalized abdominal pain. Intoxication. Falls. COMPARISON STUDY: Abdominal CT dated 04/21/2021. TECHNIQUE: Following the IV administration of 94 cc of Optiray 320, CT scan of the abdomen and pelvis is performed from the lung bases to the proximal femora. Images are reviewed in the axial, sagittal, and coronal planes. IV contrast was administered without complication. A dose lowering technique was utilized adhering to the principles of ALARA. The examination is modestly degraded by motion artifact. CT DOSE: 1672.08 mGy.cm FINDINGS: Lung bases: The heart is normal in size and without pericardial effusion. A calc ified granuloma seen in the left lower lobe. The lung bases are otherwise clear. There is a tiny hiatal hernia. Liver: The contrast-enhanced liver is enlarged, measuring 21.8 cm in length. The liver demonstrates diffusely diminished attenuation consistent with hepatic steatosis. More focal fatty infiltration is seen adjacent to the falciform ligament. There is no intrahepatic biliary ductal dilatation. The hepatic veins and portal veins are patent. Gallbladder: Unremarkable. Spleen: Normal in size and attenuation. There are scattered calcified splenic granulomas. Pancreas: Unremarkable. Adrenal glands: Unremarkable. Kidneys: The contrast enhanced kidneys are normal in size and without hydronephrosis. The kidneys enhance and excrete symmetrically. Abdominal vasculature: The abdominal aorta is normal in course and caliber. Bowel: The gastric mucosa appears thickened and hyperemic. No bowel obstruction is identified. The appendix is well-visualized and normal. Peritoneum: There is no intraperitoneal free air or abdominal ascites. There is a small fat-containing umbilical hernia. Lymphadenopathy: None. Pelvic viscera: The bladder, bladder is distended but otherwise normal in appearance. The prostate and seminal vesicles are normal as visualized. Skeletal structures: No lytic or blastic lesions are seen. There are bilateral pars defects at L5 with mild disc space narrowing and minimal anterolisthesis at L5-S1. Schmorl's nodes are seen at most lumbar levels. IMPRESSION: 1. There is no evidence of solid organ injury in the abdomen or pelvis. 2. Question gastritis. Clinical correlation will be required. This could be further assessed with endoscopy if clinically warranted. 3. Hepatomegaly and severe hepatic steatosis. 4. Bladder distention. 5. Additional findings as above. ACT 112: Negative or not required by law. Electronically signed by: César Marroquin M.D. 01/02/2022 5:[address] 01/02/22 15:22 CT SCAN OF THE BRAIN WITHOUT IV CONTRAST CLINICAL HISTORY: Change in mental status. Intoxication. COMPARISON STUDY: CT of the brain dated 11/19/2021. TECHNIQUE: Unenhanced axial CT scan of the brain is performed from the vertex to the skull base. A dose lowering technique was utilized adhering to the principles of ALARA. FINDINGS: Brain parenchyma: The brain parenchyma is normal in appearance. There is no hemorrhage, mass effect, or evidence of acute territorial ischemia by CT criter ia. Bassett-white matter differentiation is preserved. No extra-axial fluid collection is seen. Ventricles, sulci, cisterns: Normal in configuration. Intracranial vasculature: The visualized intracranial vasculature at the skull base is normal in appearance. Calvarium: Unremarkable. Sinuses and mastoids: The visualized paranasal sinuses are clear. The mastoid air cells are well pneumatized. Orbits: The bony orbits are grossly intact. IMPRESSION: No acute intracranial abnormality. ACT 112: Negative or not required by law. Electronically signed by: César Marroquin M.D. 01/02/2022 4:55 PM Chest X-Ray 01/02/22 15:31 XR chest 1V portable HISTORY: 31 years-old Male cough acute cough COMPARISON: Chest radiograph 11/22/2021, CTA chest 05/07/2020 TECHNIQUE: Portable AP view of the chest FINDINGS: The cardiomediastinal and hilar silhouettes are within normal limits. No pneumothorax, pleural effusion, airspace consolidation or overt pulmonary edema. Calcific granuloma of the left upper lobe is unchanged. Bones of the chest appear grossly intact. IMPRESSION: No acute process. ACT 112: Negative or not required by law. The above report was generated using voice recognition software. It may contain grammatical, syntax or spelling errors. Electronically signed by: Khalif Cueto M.D. 01/02/2022 4:31 PM ECG Data Attestation: I personally reviewed and interpreted this ECG as follows: (Sinus rhythm with a rate of 90. Intervals within normal limits. Normal axis. No acute ST elevation or evidence of ischemia.) Indication: + altered mental status MDM Narrative 31 year old male with a history of alcohol abuse and withdrawal presents with multiple nonspecific complaints present over the past 1.5 weeks including generalized weakness and fatigue, mild cough, anorexia, vomiting 1 week ago, black stool today, abdominal pain. Attempting to self taper alcohol consumption. On initial exam, he is oriented x 3 however is tangential, delayed, and appears somewhat intoxicated. Diffuse abdominal tenderness noted, dry mucous membranes. Overall vitals reassuring, heart rate 100 at triage. Not overtly in withdrawal at initial presentation. Patient refused a rectal exam despite description of black stool. Patient received 2 L IV fluids including 1 banana bag for likely dehydration. The differential for his symptoms was quite broad including but not limited to encephalopathy, alcohol intoxication, COVID-19, influenza, intracranial bleed, acute abdomen, pneumonia, pancreatitis, among others. Head CT was negative for acute process. Chest x-ray is negative. Abdominal pelvic CT obtained demonstrating gastritis which may be the source of his anorexia and abdominal pain hepatic steatosis, and hepatic enlargement likely secondary to alcohol consumption. Labs demonstrate serum alcohol at 232.7 which is lower than it has been in the recent past. Elevated anion gap at 14 likely secondary to EtOH. AST and ALT are significantly elevated compared to 1 month ago at 405 and 297 respectively compared to 65 and 56, concerning for alcoholic hepatitis. Ammonia is normal. ECG normal. Findings were discussed with the patient in detail. Patient improved after 2 L IV fluids and was somewhat more alert although began to demonstrate symptoms of early withdrawal including mild anxiety, increased thirst, tremor, and increasing heart rate. Case was discussed with Dr. Cobos who also evaluated the patient at bedside. We discussed disposition options together with the patient, and it was felt that the patient would be best served by being admitted to the hospital for alcohol withdrawal and coordination for detox as it appears the patient is motivated to reduce or stop his alcohol consumption. Initial dose of lorazepam was administered. Patient was agreeable with this plan. Impression & Plan Alcohol withdrawal, Alcohol abuse, Dehydration, Alcoholic hepatitis, Gastritis, Enlarged liver Admit for management of early alcohol withdrawal, coordinate detox, and develop plan for managing liver damage Discharge Plan Visit Data Chief Complaint: Flu Like Symptoms Stated Complaint: WEAKNESS, SOB, FEVER ED Provider: Wilman Cobos ED Midlevel Provider: Elliot Sims Discharge Problem: Alcohol withdrawal, Alcohol abuse, Dehydration, Alcoholic hepatitis, Gastritis, Enlarged liver Patient Disposition: Admitted As Inpatient Forms Stand Alone Forms: [facility] Prescriptions Prescriptions: No Action clonazepam 0.5 mg tablet 0.5 mg PO BID PRN (Reason: Anxiety) Qty: 60 RF: 0 chlordiazepoxide HCl 25 mg Capsule 50 mg PO UD Qty: 8 RF: 0 thiamine HCl (vitamin B1) 100 mg Tablet 100 mg PO QAM Qty: 30 RF: 0 folic acid 1 mg Tablet 1 mg PO QAM Qty: 30 RF: 0 naltrexone 50 mg tablet 50 mg PO DAILY Qty: 30 RF: 0 Referrals Referrals: Bri Cervantes MD [Primary Care Provider] - Discharge Problem: Alcohol withdrawal Qualifiers: Complication of substance-induced condition: with unspecified complication Qualified Code(s): F10.239 - Alcohol dependence with withdrawal, unspecified Alcoholic hepatitis Qualifiers: Ascites presence: without ascites Qualified Code(s): K70.10 - Alcoholic hepatitis without ascites Gastritis Qualifiers: Gastritis type: alcoholic Chronicity: acute Gastritis bleeding: presence of bleeding unspecified Qualified Code(s): K29.20 - Alcoholic gastritis without bleeding
[2022-01-02 16:01] LABS: Influenza A virus by PCR Negative (Negative); Influenza B virus by PCR Negative (Negative)
[2022-01-02 16:15] LABS: Albumin Globulin Ratio 1.7 (0.9-2); BUN Creatinine Ratio 10.5 (10-20); Bilirubin,Total 0.7 mg/dl (0.2-1.0); Calcium 9.2 mg/dl (8.5-10.1); Creatinine Clr Calc Pharmacy 151.4 ml/min; Est GFR (African American) 141.9 ml/min; Est GFR (Non-African American) 122.4 ml/min; Magnesium 2.1 mg/dl (1.7-2.4); Potassium 3.9 mmol/L (3.5-5.1)
--- NOTE | 2022-01-02 16:32 | XRay Report ---
XR chest 1V portable HISTORY: 31 years-old Male cough acute cough COMPARISON: Chest radiograph 11/22/2021, CTA chest 05/07/2020 TECHNIQUE: Portable AP view of the chest FINDINGS: The cardiomediastinal and hilar silhouettes are within normal limits. No pneumothorax, pleural effusi on, airspace consolidation or overt pulmonary edema. Calcific granuloma of the left upper lobe is unc hanged. Bones of the chest appear grossly intact. IMPRESSION: No acute process. ACT 112: Negative or not required by law. The above report was generated using voice recognition software. It may contain grammatical, syntax o r spelling errors. Electronically signed by: Khalif Cueto M.D. 01/02/2022 4:31 PM
[2022-01-02 16:42] LABS: Basophils # (auto) 0.03 K/uL (0-0.2); Basophils % (auto) 0.6 %; Eosinophils # (auto) 0.04 K/uL (0-0.5); Eosinophils % (auto) 0.8 %; Hematocrit (blood only) 45.1 % (42-52); Hemoglobin 15.6 g/dL (14.0-18.0); Immature Granulocytes # (auto) 0.01 K/uL (0.00-0.02); Immature Granulocytes % (auto) 0.2 %; Lymphocytes # (auto) 1.43 K/uL (1.2-3.4); Lymphocytes % (auto) 29.6 %; Mean Corpuscular Hemoglobin 33.2 pg (25-34); Monocytes # (auto) 0.39 K/uL (0.11-0.59); Monocytes % (auto) 8.1 %; Neutrophils # (auto) 2.93 K/uL (1.4-6.5); Neutrophils % (auto) 60.7 %; RDW Coefficient of Variation 13.4 % (11.5-14.5); RDW Standard Deviation 47.7 fL (36.4-46.3); White Blood Count 4.83 K/uL (4.8-10.8)
[2022-01-02] MEDS ORDERED: OPTIRAY 320 100ml IV ONE (16:46)
--- NOTE | 2022-01-02 16:57 | CT Scan Report ---
CT SCAN OF THE BRAIN WITHOUT IV CONTRAST CLINICAL HISTORY: Change in mental status. Intoxication. COMPARISON STUDY: CT of the brain dated 11/19/2021. TECHNIQUE: Unenhanced axial CT scan of the brain is performed from the vertex to the skull base. A d ose lowering technique was utilized adhering to the principles of ALARA. FINDINGS: Brain parenchyma: The brain parenchyma is normal in appearance. There is no hemorrhage, mass effect, or evidence of acute territorial ischemia by CT criteria. Bassett-white matter differentiation is preser ted. No extra-axial fluid collection is seen. Ventricles, sulci, cisterns: Normal in configuration. Intracranial vasculature: The visualized intracranial vasculature at the skull base is normal in appe arance. Calvarium: Unremarkable. Sinuses and mastoids: The visualized paranasal sinuses are clear. The mastoid air cells are well pneu matized. Orbits: The bony orbits are grossly intact. IMPRESSION: No acute intracranial abnormality. ACT 112: Negative or not required by law. Electronically signed by: César Marroquin M.D. 01/02/2022 4:55 PM
--- NOTE | 2022-01-02 17:05 | CT Scan Report ---
CT SCAN OF THE ABDOMEN AND PELVIS WITH IV CONTRAST CLINICAL HISTORY: Generalized abdominal pain. Intoxication. Falls. COMPARISON STUDY: Abdominal CT dated 04/21/2021. TECHNIQUE: Following the IV administration of 94 cc of Optiray 320, CT scan of the abdomen and pelvi s is performed from the lung bases to the proximal femora. Images are reviewed in the axial, sagittal , and coronal planes. IV contrast was administered without complication. A dose lowering technique wa s utilized adhering to the principles of ALARA. The examination is modestly degraded by motion artifa ct. CT DOSE: 1672.08 mGy.cm FINDINGS: Lung bases: The heart is normal in size and without pericardial effusion. A calcified granuloma seen in the left lower lobe. The lung bases are otherwise clear. There is a tiny hiatal hernia. Liver: The contrast-enhanced liver is enlarged, measuring 21.8 cm in length. The liver demonstrates d iffusely diminished attenuation consistent with hepatic steatosis. More focal fatty infiltration is s een adjacent to the falciform ligament. There is no intrahepatic biliary ductal dilatation. The hepat ic veins and portal veins are patent. Gallbladder: Unremarkable. Spleen: Normal in size and attenuation. There are scattered calcified splenic granulomas. Pancreas: Unremarkable. Adrenal glands: Unremarkable. Kidneys: The contrast enhanced kidneys are normal in size and without hydronephrosis. The kidneys enh ance and excrete symmetrically. Abdominal vasculature: The abdominal aorta is normal in course and caliber. Bowel: The gastric mucosa appears thickened and hyperemic. No bowel obstruction is identified. The ap pendix is well-visualized and normal. Peritoneum: There is no intraperitoneal free air or abdominal ascites. There is a small fat-containin g umbilical hernia. Lymphadenopathy: None. Pelvic viscera: The bladder, bladder is distended but otherwise normal in appearance. The prostate an d seminal vesicles are normal as visualized. Skeletal structures: No lytic or blastic lesions are seen. There are bilateral pars defects at L5 wit h mild disc space narrowing and minimal anterolisthesis at L5-S1. Schmorl's nodes are seen at most sergio mbar levels. IMPRESSION: 1. There is no evidence of solid organ injury in the abdomen or pelvis. 2. Question gastritis. Clinical correlation will be required. This could be further assessed with end oscopy if clinically warranted. 3. Hepatomegaly and severe hepatic steatosis. 4. Bladder distention. 5. Additional findings as above. ACT 112: Negative or not required by law. Electronically signed by: César Marroquin M.D. 01/02/2022 5:02 PM
[2022-01-02 17:45] LABS: Appearance Urine Clear (Clear); Bilirubin Urine Negative (Negative); Blood Urine Negative (Negative); Color Urine Yellow; Glucose Urine UA Negative (Negative); Ketones Urine 1+ (Negative); Leukocyte Esterase Urine Negative (Negative); Nitrite Urine Negative (Negative); Protein Urine Negative (Negative); Specific Gravity Urine 1.036 (1.000-1.030); Urobilinogen Urine Negative (Negative)
[2022-01-02 18:05] LABS: Amphetamines+Metham, Urine Neg (Neg); Barbiturates, Urine Neg (Neg); Benzodiazepine, Urine Neg (Neg); Cocaine, Urine Neg (Neg); MDMA (Ecstacy), Urine Neg (Neg); Methadone, Urine Neg (Neg); Opiate, Urine Neg (Neg); Phencyclidine, Urine Neg (Neg)
[2022-01-02] MEDS ORDERED: LORazepam 2 MG/1 ML VIAL IV STA (18:09)
--- NOTE | 2022-01-02 18:12 | Emergency Department Note ---
ED Visit Note Physician Evaluation Note: Patient was seen in conjunction with the physician construction management assistant. Please see the physician construction management assistant note for full details of the visit. I have personally evaluated and examined this patient. I performed a substantive portion of the patient visit including medical decision making and interpretation of diagnostic studies. On my examination the patient is mildly tremulous, he does have a history of alcohol abuse, alcohol level is noted to be elevated at approximately 230 on presentation, on my evaluation the patient is mildly tachycardic, he does display tremulousness in the upper extremities and some mild confusion. Patient tells me that he drinks approximately 30 mixed hard liquor beverages a day, I suspect that he is going through the early stages of withdrawal at this point. I discussed the above findings with the patient and his at the bedside, I suspect he needs admitted to manage alcohol withdrawal. Patient tells me he does have a history of alcohol withdrawal. We will plan for admission to a telemetry bed for further care, patient does express some interest in detox facility but I do not think he is a good candidate for a Librium taper, he is of low likelihood of any type of success with a home taper on his own at this point given that he and his both have issues with alcohol abuse. I feel that he would be a high risk discharge with this plan. I agree with assessment and plan of RSOALIND Shah DO .
[2022-01-02] MEDS ORDERED: FAMOTIDINE 20MG IV PUSH 20 MG/5 ML SYR IV STA (18:29)
[2022-01-02] MEDS ORDERED: GABAPENTIN 1200MG ALCOHOL WITHDRAWAL LOAD PO STA (18:40)
--- NOTE | 2022-01-02 18:43 | History & Physical Report ---
Date of Service January 02, 2022 Assessment & Plan (1) Alcohol withdrawal: Plan: Patient refusing lorazpepam or gabapentin Start on Librium taper per prior withdrawals but given elevated LFTs will start on reduced dose. Lorazepam for elevated AWSS >5 Concerning having some withdrawal symptoms despite having positive alcohol level in the ER (2) Gastritis: Plan: Famotidine 20mg IV now and daily History of black stool - FOB pending, refused rectal exam in the ER (3) Elevated liver transaminase level: Plan: Suspect secondary to alcohol use INR in AM to complete workup and severity, however given normal bilirubin/Plt suspect low Maddrey's discriminant function. Plt normal. Repeat CMP in AM Severe hepatomegaly on CT Possible alcoholic hepatitis causing his symptoms but difficult to distinguish between this and alcohol use and withdrawal on admission - abdominal tenderness is not RUQ. (4) Enlarged liver: Plan: On CT concerning for alcoholic hepatitis (5) Alcohol abuse: Plan: Suspect cause of his generalized symptoms Unable to take B1 level as given banana bag in the ER but no nystagmus to suspect Wernicke's (6) Anxiety: Plan: As per prior providers concerning he is using alcohol to treat this Does not wish to start SSRI as previously cause manic behaviours that travis in his family. Previously prescribed lamotrigine as a mood stabilizer which seems reasonable to restart this on discharge - he never tried taking this from his psychiatrist Plan: VTE Prophylaxis - low risk, deferred Diet - regular Disposition - admit to PCU as already showing some withdrawal symptoms despite positive alcohol level Admission and Anticipated Discharge Date Admission Date: January 02, 2022 History of Present Illness Chief Complaint: Black stool, generalized weakness, headache, abdominal pain Primary Care Provider: Bri Cervantes MD Chun Block is a 31 year old male with alcohol use disorder who presents to the ER with abdominal pain, fatigue, generalized weakness, headache, tremors and black stool. He has been trying to reduce his alcohol consumption over the last week but admits to usually using 25-30 vodka drinks per day. No fever, chills, urinary or respiratory symptoms. Abdominal pain is lower abdomen, no radiation, currently improved. No current nausea or vomiting. Noticed black stool today. Significant life stressors bring him back to alcohol use with his brother going to [employer] as a missionary, his father of COVID and his having mental health issues with Bipolar. He wishes to try to quit drinking alcohol. He is anxious about starting any medications for his anxiety due to side effects and concern for manic episodes with SSRIs. He is concerned about taking gabapentin because it is a new medication. He reports prior severe itching when he is given lorazepam. Due to current tremors and concerns for alcohol withdrawal with the patient cutting down alcohol in the ER along with elevated transaminases in the ER he was referred to medicine for admission and ongoing management of alcohol with drawal. Allergies Allergy/AdvReac Type Severity Reaction Status Date / Time bupropion [From Wellbutrin] AdvReac Severe anxiety, Verified 01/02/22 15:05 confussion buspirone [From BuSpar] AdvReac Intermediate Shaking/john Verified 01/02/22 15:05 mor gluten/dairy free AdvReac Severe Headache Uncoded 01/02/22 15:05 antihistamines AdvReac Intermediate "Just Uncoded 01/02/22 15:05 Don't Feel Right When I Take Them" Home Medications Medication Instructions Recorded Confirmed Type chlordiazepoxide HCl 25 mg capsule 50 mg PO UD #8 cap 11/24/21 01/02/22 Rx folic acid 1 mg tablet 1 mg PO QAM #30 tab 11/24/21 01/02/22 Rx naltrexone 50 mg tablet 50 mg PO DAILY #30 tab 11/24/21 01/02/22 Rx thiamine HCl (vitamin B1) 100 mg 100 mg PO QAM #30 tab 11/24/21 01/02/22 Rx tablet clonazepam 0.5 mg tablet 0.5 mg PO BID PRN #60 tab 12/01/21 01/02/22 Rx Past Med/Surg History Medical History Abdominal pain Acute sinusitis Alcohol abuse with alcohol-induced anxiety disorder Chest pain Dizziness BRITTNY (generalized anxiety disorder) Headache Hypokalemia Lab test negative for COVID-19 virus Left leg cellulitis No pertinent family history Pain, dental Surgical History No pertinent past surgical history Family History Other No significant family history Social History Smoking Status: Current some day smoker Tobacco Type: Cigarettes Hx Alcohol Use: Yes Alcohol type: hard liquor Hx Substance Use: No Preferred Language: Egyptian Communication Ability: Effective Patrol Man Required: No Beliefs That Will Affect Care: None marital status: Current Living Situation: Spouse current occupational status: employed Other Information That Helps Us Care for You: No Feels Safe at Home: Yes Safety Concerns: Feels Safe At This Time Assistive Devices: None Review of Systems Review of Systems: All systems reviewed & are unremarkable except as noted in HPI & below Physical Exam Constitutional: WD/WN, vitals as above Eyes: PERRL, conjunctivae normal, anicteric sclerae no nystagmus ENMT: external ear and nose normal, oropharynx normal Neck: trachea midline Respiratory: normal respiratory effort, lungs clear to auscultation Cardiovascular: RRR, no murmur, no edema Gastrointestinal (Abdomen): Inspection/Auscultation: normal bowel sounds Percussion/Palpation: + abdomen tender (generlaized) and abdomen soft; no guarding and abdomen not rigid Musculoskeletal: no cyanosis or clubbing, extremities motor strength 5/5 Skin: no rashes, warm and dry Neurologic: moves all extremities and awake; not confused Motor/Sensory: + tremor (postural) Psychiatric: A+Ox3, euthymic affect Results & Data Results & Data ([facility]) Vital Signs (Past 12 Hours) Vital Signs Temp Pulse Pulse Resp BP BP Pulse Ox 01/02/22 17:00 90 15 131/90 97 01/02/22 15:37 83 16 131/90 96 01/02/22 14:22 36.7 C 100 H 18 137/84 96 Laboratory Results Abnormal lab results 01/02/22 01/02/22 01/02/22 Range/Units 15:39 15:39 15:39 RDW Std Deviation 47.7 H (36.4-46.3) fL Anion Gap 14 H (3-11) AST 405 H (13-39) U/L ALT 297 H (7-52) U/L Ur Specific Cadwell (1.000-1.030) Urine Ketones (Negative) Ethyl Alcohol mg/dL 232.7 H (<10.0) mg/dl 01/02/22 Range/Units Unknown RDW Std Deviation (36.4-46.3) fL Anion Gap (3-11) AST (13-39) U/L ALT (7-52) U/L Ur Specific [place]well 1.036 H (1.000-1.030) Urine Ketones 1+ H (Negative) Ethyl Alcohol mg/dL (<10.0) mg/dl Diagnostic Findings CT SCAN OF THE BRAIN WITHOUT IV CONTRAST CLINICAL HISTORY: Change in mental status. Intoxication. COMPARISON STUDY: CT of the brain dated 11/19/2021. TECHNIQUE: Unenhanced axial CT scan of the brain is performed from the vertex to the skull base. A dose lowering technique was utilized adhering to the principles of ALARA. FINDINGS: Brain parenchyma: The brain parenchyma is normal in appearance. There is no h emorrhage, mass effect, or evidence of acute territorial ischemia by CT criteria. Bassett-white matter differentiation is preserved. No extra-axial fluid collection is seen. Ventricles, sulci, cisterns: Normal in configuration. Intracranial vasculature: The visualized intracranial vasculature at the skull base is normal in appearance. Calvarium: Unremarkable. Sinuses and mastoids: The visualized paranasal sinuses are clear. The mastoid air cells are well pneumatized. Orbits: The bony orbits are grossly intact. IMPRESSION: No acute intracranial abnormality. CT SCAN OF THE ABDOMEN AND PELVIS WITH IV CONTRAST CLINICAL HISTORY: Generalized abdominal pain. Intoxication. Falls. COMPARISON STUDY: Abdominal CT dated 04/21/2021. TECHNIQUE: Following the IV administration of 94 cc of Optiray 320, CT scan of the abdomen and pelvis is performed from the lung bases to the proximal femora. Images are reviewed in the axial, sagittal, and coronal planes. IV contrast was administered without complication. A dose lowering technique was utilized adhering to the principles of ALARA. The examination is modestly degraded by motion artifact. CT DOSE: 1672.08 mGy.cm FINDINGS: Lung bases: The heart is normal in size and without pericardial effusion. A calcified granuloma seen in the left lower lobe. The lung bases are otherwise clear. There is a tiny hiatal hernia. Liver: The contrast-enhanced liver is enlarged, measuring 21.8 cm in length. The liver demonstrates diffusely diminished attenuation consistent with hepatic steatosis. More focal fatty infiltration is seen adjacent to the falciform ligament. There is no intrahepatic biliary ductal dilatation. The hepatic veins and portal veins are patent. Gallbladder: Unremarkable. Spleen: Normal in size and attenuation. There are scattered calcified splenic granulomas. Pancreas: Unremarkable. Adrenal glands: Unremarkable. Kidneys: The contrast enhanced kidneys are normal in size and without hydronephrosis. The kidneys enhance and excrete symmetrically. Abdominal vasculature: The abdominal aorta is normal in course and caliber. Bowel: The gastric mucosa appears thickened and hyperemic. No bowel obstruction is identified. The appendix is well-visualized and normal. Peritoneum: There is no intraperitoneal free air or abdominal ascites. There is a small fat-containing umbilical hernia. Lymphadenopathy: None. Pelvic viscera: The bladder, bladder is distended but otherwise normal in appearance. The prostate and seminal vesicles are normal as visualized. Skeletal structures: No lytic or blastic lesions are seen. There are bilateral pars defects at L5 with mild disc space narrowing and minimal anterolisthesis at L5-S1. Schmorl's nodes are seen at most lumbar levels. IMPRESSION: 1. There is no evidence of solid organ injury in the abdomen or pelvis. 2. Question gastritis. Clinical correlation will be required. This could be further assessed with endoscopy if clinically warranted. 3. Hepatomegaly and severe hepatic steatosis. 4. Bladder distention. 5. Additional findings as above. Medications Administered ER Medications Given: NSS 1L bolus ECG Indication: altered mental status Rate (beats per minute): 90 Rhythm: normal sinus Findings: no acute ischemic change Comparison ECG Date: from (Nov 22, 2021) Change: no significant change Code Status & VTE Plan Code Status Full VTE Prophylaxis Plan VTE Prophylaxis will be ordered: No PG Care Time/CCT Total # of Minutes Spent Total Time Spent with Patient: Total time spent is greater than 50% in coordination of care (as documented) at patient's floor/unit and/or counseling patient: Coding Level of Care Code 90603 Initial Inpt Care Lvl 3 Diagnoses Alcohol withdrawal F10.239 Gastritis K29.20 Chronicity: acute Gastritis bleeding: presence of bleeding unspecified Gastritis type: alcoholic Elevated liver transaminase level R74.01 Enlarged liver R16.0 Alcohol abuse F10.10 Anxiety F41.9 (1) Gastritis Chronicity: acute Gastritis bleeding: presence of bleeding unspecified Gastritis type: alcoholic Qualified Code(s): K29.20 - Alcoholic gastritis without bleeding
[2022-01-02] MEDS ORDERED: chlordiazePOXIDE ALCOHOL WITHDRAWL 25MG PO STA (19:10)
[2022-01-02] MEDS: chlordiazePOXIDE HCl 25 MG CAP PO SCH (20:00)
[2022-01-02] MEDS: LORazepam 2 MG/1 ML VIAL IV PRN ×2 (21:43→23:05)
[2022-01-02] MEDS: THIAMINE HCL 100 MG TAB PO SCH (21:43)
--- NOTE | 2022-01-02 21:53 | Electrocardiogram Report ---
Test Reason : Blood Pressure : / mmHG Vent. Rate : 090 BPM Atrial Rate : 090 BPM P-R Int : 166 ms QRS Dur : 098 ms QT Int : 376 ms P-R-T Axes : 049 051 050 degrees QTc Int : 459 ms Normal sinus rhythm Normal ECG When compared with ECG of 22-NOV-2021 15:20, No significant change was found Confirmed by Gustabo Victoria ([id number]) on 01/02/2022 9:52:42 PM Referred By: REFERRED SELF Confirmed By:Gustabo Victoria
[2022-01-03] MEDS: chlordiazePOXIDE HCl 25 MG CAP PO SCH ×4 (01:52→22:51)
[2022-01-03] MEDS: LORazepam 2 MG/1 ML VIAL IV PRN (02:01)
--- NOTE | 2022-01-03 07:22 | Hospitalist Progress Note ---
Date of Service January 03, 2022 Assessment & Plan (1) Alcohol abuse: Plan: pt with longstanding history of alcohol abuse, anxiety, has some somatic complaints but negative head CT and abdominal CT except for hepatic steatosis, on scheduled librium will add some gabapentin, thiamine due to increased Librium dose to 50 every 8 on gabapentin taper once withdrawal is complete consider naltrexone at discharge and good pcp follow up patient already has naltrexone at home from his a psychiatrist Patient requested nicotine patch for tobacco abuse plus vaping. (2) Elevated liver transaminase level: Plan: Transaminitis is from alcohol irritation, INR is now 1.0 creatinine is intact bilirubin is 1.1. Therefore doubt this is acute alcoholic hepatitis would require steroid treatment (3) Anxiety: Plan: Patient has a baseline anxiety disorder. He has many anxiolytics at home. Once he is through detox consideration of other agents to attack his anxiety other than benzodiazepines. He has outpatient psychiatric physician (4) DVT prophylaxis: Plan: DVT prophylaxis is early ambulation Plan: Patient obviously is not invested in his detox or sobriety. Patient says he needs to be discharged by the evening of January 04 no matter what. Is been on home Librium tapers in the past and is an outpatient psychiatrist. Given his current lack of investment will he stay in hospital to get through this is unlikely he will proceed with a prolonged sobriety. If the patient is not discharge volitionally in the afternoon of 01/04 he says he will leave Admission and Anticipated Discharge Date Admission Date: January 02, 2022 Subjective pt is anxious, did revamp his withdrawal plan with scheduled librium and gabapentin, pt did require additional ativan IV but now appears much more stable Review of Systems Review of Systems: Moderate distress and fatigue no headache, no visual changes no speech or swallowing issues no chest pain, pressure or palpitations no shortness of breath, cough or wheezes no abdominal pain, nausea or vomiting no dysuria, hematuria or frequency no focal joint pain or swelling no back pain, CVA tenderness or radicular pain no bruising, bleeding or rashes no focal signs of weakness or numbness or altered sensation c/o anxiety and restless ness Physical Exam Physical Exam: The patient appeared well nourished and normally developed. Vital signs as documented. Hypertensive and tachycardic earlier in the day on 01/03 Head exam is normocephalic atraumatic Neck is without JVD, thyromegaly, or carotid bruits. Lungs are clear to auscultation, no focal loss of breath sounds Cardiac exam, Rhythm is regular.. No murmurs, rubs or gallops. Abdominal exam reveals normal bowel sounds, soft non tender, no masses Extremities are nonedematous and both pedal pulses are present Neurologic exam is alert and oriented, no focal loss of strength or sensation No tremor or asterixis Skin is without bruises or rashes Psychologically is with discern for underlying anxiety disorder on top of alcohol withdrawal. Results & Data Results & Data ([facility]) Vital Signs (Past 12 Hours) Vital Signs Temp Pulse Pulse Resp BP Pulse Ox 01/03/22 01:55 98.8 F 93 H 20 146/87 H 96 01/02/22 23:00 73 01/02/22 22:45 98.2 F 84 18 136/86 96 01/02/22 19:34 98.2 F 84 20 135/96 96 PG Care Time/CCT Total # of Minutes Spent Total Time Spent with Patient: Total time spent is greater than 50% in coordination of care (as documented) at patient's floor/unit and/or counseling patient: Coding Level of Care Code 77861 Subseq Hosp Care Lvl 2 Diagnoses Alcohol abuse F10.10 Elevated liver transaminase level R74.01 Anxiety F41.9 DVT prophylaxis Z29.9
[2022-01-03 07:24] LABS: Basophils # (auto) 0.03 K/uL (0-0.2); Basophils % (auto) 0.6 %; Eosinophils # (auto) 0.09 K/uL (0-0.5); Eosinophils % (auto) 1.8 %; Hemoglobin 14.6 g/dL (14.0-18.0); Immature Granulocytes # (auto) 0.01 K/uL (0.00-0.02); Immature Granulocytes % (auto) 0.2 %; Lymphocytes # (auto) 1.04 K/uL (1.2-3.4); Lymphocytes % (auto) 21.1 %; Mean Corpuscular Hemoglobin 32.9 pg (25-34); Mean Corpuscular Volume 96.8 fL (80-100); Mean Platelet Volume 10.5 fL (7.4-10.4); Monocytes % (auto) 10.2 %; Neutrophils # (auto) 3.25 K/uL (1.4-6.5); Neutrophils % (auto) 66.1 %; Platelet Count 146 K/uL (130-400); RDW Coefficient of Variation 13.4 % (11.5-14.5); RDW Standard Deviation 47.8 fL (36.4-46.3); Red Blood Count 4.44 M/uL (4.7-6.1); White Blood Count 4.92 K/uL (4.8-10.8)
[2022-01-03 07:32] LABS: Prothrombin Time 10.3 Seconds (9.0-12.0)
[2022-01-03] MEDS ORDERED: GABAPENTIN 1200MG ALCOHOL WITHDRAWAL LOAD PO ONE (07:32)
[2022-01-03] MEDS ORDERED: chlordiazePOXIDE HCl 25 MG CAP PO SCH ×2 (07:45→14:00)
[2022-01-03 08:00] LABS: Albumin Globulin Ratio 1.8 (0.9-2); Albumin Level 4.6 gm/dl (3.4-5.0); BUN Creatinine Ratio 11.8 (10-20); Bilirubin,Total 1.1 mg/dl (0.2-1.0); Calcium 8.1 mg/dl (8.5-10.1); Creatinine Clr Calc Pharmacy 151.4 ml/min; Est GFR (African American) 141.9 ml/min; Est GFR (Non-African American) 122.4 ml/min; Globulin 2.6 gm/dl (2.5-4.0); Potassium 3.8 mmol/L (3.5-5.1); Total Protein 7.2 gm/dl (6.0-8.3)
[2022-01-03] MEDS: FAMOTIDINE 20 MG TAB PO SCH (08:10)
[2022-01-03] MEDS: THIAMINE HCL 100 MG TAB PO SCH (08:12)
[2022-01-03] MEDS ORDERED: LORazepam 2 mg IV INJ IV STA (10:54)
[2022-01-03] MEDS ORDERED: chlordiazePOXIDE HCl 25 MG CAP PO ONE (11:26)
[2022-01-03] MEDS ORDERED: LORazepam 2 MG/1 ML VIAL IV PRN (11:27)
[2022-01-03] MEDS: GABAPENTIN 600 MG TAB PO SCH ×2 (12:23→17:07)
[2022-01-03] MEDS ORDERED: GABAPENTIN 600 MG TAB PO SCH (15:00)
[2022-01-03] MEDS: NICOTINE 14 MG/24 HR PATCH TD SCH ×2 (17:07→20:05)
[2022-01-03] MEDS ORDERED: ONDANSETRON INJ 2 MG/ML 2 ML VIAL IV PRN (18:30)
[2022-01-03] MEDS ORDERED: ONDANSETRON INJ 2 MG/ML 2 ML VIAL ONE (18:49)
[2022-01-04] MEDS: chlordiazePOXIDE HCl 25 MG CAP PO SCH ×2 (06:05→17:33)
[2022-01-04] MEDS: GABAPENTIN 600 MG TAB PO SCH ×2 (06:06→17:34)
[2022-01-04 07:50] VITALS: O2SAT 97
[2022-01-04 07:55] LABS: Hematocrit (blood only) 44.4 % (42-52); Hemoglobin 15.4 g/dL (14.0-18.0); Mean Corpuscular Hemoglobin 33.7 pg (25-34); Mean Corpuscular Hgb Conc 34.7 g/dL (32-36); Mean Corpuscular Volume 97.2 fL (80-100); Mean Platelet Volume 10.8 fL (7.4-10.4); Platelet Count 132 K/uL (130-400); RDW Coefficient of Variation 13.4 % (11.5-14.5); RDW Standard Deviation 47.8 fL (36.4-46.3); Red Blood Count 4.57 M/uL (4.7-6.1); White Blood Count 4.59 K/uL (4.8-10.8)
[2022-01-04 08:09] LABS: Prothrombin Time 10.4 Seconds (9.0-12.0)
[2022-01-04 08:25] LABS: Albumin Globulin Ratio 1.7 (0.9-2); Albumin Level 4.8 gm/dl (3.4-5.0); BUN Creatinine Ratio 15.3 (10-20); Bilirubin,Total 1.1 mg/dl (0.2-1.0); Calcium 9.6 mg/dl (8.5-10.1); Creatinine Clr Calc Pharmacy 134.1 ml/min; Est GFR (African American) 134.6 ml/min; Est GFR (Non-African American) 116.1 ml/min; Globulin 2.8 gm/dl (2.5-4.0); Potassium 3.9 mmol/L (3.5-5.1); Total Protein 7.6 gm/dl (6.0-8.3)
[2022-01-04] MEDS: NICOTINE 14 MG/24 HR PATCH TD SCH ×2 (09:32)
[2022-01-04] MEDS: FAMOTIDINE 20 MG TAB PO SCH (09:44)
[2022-01-04] MEDS: THIAMINE HCL 100 MG TAB PO SCH (09:44)
[2022-01-04 11:04] VITALS: TEMP 97.9
[2022-01-04 15:46] VITALS: BP 134/96
[2022-01-04 17:55] VITALS: PULSE 66
--- NOTE | 2022-01-04 21:25 | Discharge Summary ---
Date of Service January 04, 2022 Admission HPI Per Admitting Provider Chun Block is a 31 year old male with alcohol use disorder who presents to the ER with abdominal pain, fatigue, generalized weakness, headache, tremors and black stool. He has been trying to reduce his alcohol consumption over the last week but admits to usually using 25-30 vodka drinks per day. No fever, chills, urinary or respiratory symptoms. Abdominal pain is lower abdomen, no radiation, currently improved. No current nausea or vomiting. Noticed black stool today. Significant life stressors bring him back to alcohol use with his brother going to [facility] as a missionary, his father of COVID and his having mental health issues with Bipolar. He wishes to try to quit drinking alcohol. He is anx ious about starting any medications for his anxiety due to side effects and concern for manic episodes with SSRIs. He is concerned about taking gabapentin because it is a new medication. He reports prior severe itching when he is given lorazepam. Due to current tremors and concerns for alcohol withdrawal with the patient cutting down alcohol in the ER along with elevated transaminases in the ER he was referred to medicine for admission and ongoing management of alcohol withdrawal. Principal Diagnosis Alcohol withdrawal Discharge Exam Constitutional WD/WN, vitals as above Eyes EOM intact bilaterally; no conjunctival abnormality ENMT external ear and nose normal, oropharynx normal Mouth / Teeth: 1. No tongue fasciculations Neck trachea midline, no thyromegaly normal visual inspection Respiratory normal respiratory effort, lungs clear to auscultation no respiratory distress Cardiovascular RRR, no murmur, no edema Gastrointestinal (Abdomen) Inspection/Auscultation: abdomen normal to inspection; abdomen not distended Musculoskeletal no cyanosis or clubbing, extremities motor strength 5/5 Skin no rashes, warm and dry Neurologic moves all extremities and awake Motor/Sensory: + tremor (Mild tremor with outstretched arms); no fasciculations Psychiatric Orientation: alert, oriented to person and cooperative Discharge Data Allergies Allergy/AdvReac Type Severity Reaction Status Date / Time bupropion [From Wellbutrin] AdvReac Severe anxiety, Verified 01/02/22 15:05 confussion buspirone [From BuSpar] AdvReac Intermediate Shaking/john Verified 01/02/22 15:05 mor gluten AdvReac Unknown Unknown Verified 01/03/22 07:36 milk AdvReac Unknown Unknown Verified 01/03/22 07:35 antihistamines AdvReac Intermediate "Just Uncoded 01/02/22 15:05 Don't Feel Right When I Take Them" Consultations 01/02/22 18:20 ED Decision to Admit Stat Ordered Studies 01/02/22 15:21 CT abd pelvis IV con only Stat 01/02/22 15:22 CT head/brain wo con Stat Hospital Course (1) Alcohol abuse: pt with longstanding history of alcohol abuse, anxiety, has some somatic complaints but negative head CT and abdominal CT except for hepatic steatosis, on scheduled librium will add some gabapentin, thiamine due to increased Librium dose to 50 every 8 on gabapentin taper Patient requested nicotine patch for tobacco abuse plus vaping. -> Patient was adamant about leaving on 01/04. He was only in mild withdrawal an d able to capably make that decision. was in the room during our discussion and also did not object. I was only comfortable giving him a lower dose Librium BID until seen by his PCP on Sunday. 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 I encouraged him not to drive either, and he reported his would drive him. -> Discharged on Librium 25 mg PO BID x 4 doses. Has f/u appt with his PCP on Sunday afternoon. He was informed of this, and it is on his d/c paperwork. (2) Elevated liver transaminase level: Transaminitis is from alcohol irritation, INR is now 1.0 creatinine is intact bilirubin is 1.1. Maddrey's DF too low for steroids. -> Improving. Can have PCP check in 1-2 weeks to ensure it is resolved. (3) Anxiety: Patient has a baseline anxiety disorder. He has many anxiolytics at home. Once he is through detox consideration of other agents to attack his anxiety other than benzodiazepines. He has outpatient psychiatric physician. (4) DVT prophylaxis: DVT prophylaxis is early ambulation Total Time Total Time Spent Total Time Spent (In Minutes): 35 Discharge Plan Discharge Items Patient Disposition: Against Medical Advice Reason For Visit: ALCOHOL WITHDRAWAL, TRANSAMINITIS Activity: Resume your previous activity Non-emergency contact: Primary Care Provider Follow-up/Referrals: Bri Cervantes MD [Primary Care Provider] - 01/06/22 4:00 pm (Hospital follow up with primary care. You will see Britany Marcelino PA-C.) Migue Director Of Integrated Marketing Provider Instructions: Mr. Block, You were admitted to the hospital for alcohol withdrawal and liver injury due to your drinking. While you were here, we were able to keep your alcohol withdrawal symptoms under control. You decided you had to leave today, and while we recommend against it, I understand you have a lot of competing needs in your life. You are fully able to make this decision for yourself. We are giving you 3 days worth of medication to take to help reduce the chances of danger withdrawal symptoms. Please do not operate dangerous or heavy machinery while on this medication as it can cause drowsiness. Please see your PCP on Sunday to be sure your withdrawal symptoms are under control. Please call your PCP office or return to the hospital if you have uncontrolled withdrawal symptoms. We are here 14/05 and will always treat you if needed! Please abstain from drinking while on this medication and forever. The alcohol is killing your liver. I am very sorry you suffer from anxiety, but your PCP and psychiatrist can discuss several options that are safer for your health. Pending Studies at Discharge: No Stand-Alone Forms: [facility], Smoking Cessation Medications and DC Order Prescriptions: New chlordiazepoxide HCl 25 mg capsule 25 mg PO BID Qty: 4 RF: 0 Continued thiamine HCl (vitamin B1) 100 mg Tablet 100 mg PO QAM Qty: 30 RF: 0 folic acid 1 mg Tablet 1 mg PO QAM Qty: 30 RF: 0 naltrexone 50 mg tablet 50 mg PO DAILY Qty: 30 RF: 0 Discontinued clonazepam 0.5 mg tablet 0.5 mg PO BID PRN (Reason: Anxiety) Qty: 60 RF: 0 chlordiazepoxide HCl 25 mg Capsule 50 mg PO UD Qty: 8 RF: 0 Discharge Orders: Left Against Medical Advice (Routine); Ordered 01/04/22 Ordered By: Louis Moss Admission Data Admit Date/Time: 01/02/22 18:40 Attending Provider: Louis Moss Admit Provider: Carlos Herrera Primary Care Provider: Bri Cervantes Other Providers: Louis Moss Other Interventions: Discharge Summary Assessment (RN) Last Done: 01/04/22 17:52 Coding Level of Care Code D/C DAY MANAGEMENT >30 MINS Diagnoses Alcohol abuse F10.10 Elevated liver transaminase level R74.01 Anxiety F41.9 DVT prophylaxis Z29.9
[2022-01-05] MEDS ORDERED: GABAPENTIN 600 MG TAB PO SCH (09:00)
[2022-01-06] MEDS ORDERED: chlordiazePOXIDE HCl 5 MG CAP PO SCH
[2022-01-06] MEDS ORDERED: GABAPENTIN 600 MG TAB PO SCH (21:00)
== END 2022-01-04 17:54 | disposition left against medical advice (07) | DRG 894 ==
LOC: ED 14:20 → SUATTDRO 18:40 → 2E 18:40

== ENCOUNTER 2022-04-08 20:44 | Inpatient (IN) ==
[2022-04-08 21:43] LABS: Basophils # (auto) 0.07 K/uL (0-0.2); Basophils % (auto) 1.1 %; Eosinophils # (auto) 0.06 K/uL (0-0.5); Eosinophils % (auto) 0.9 %; Hematocrit (blood only) 48.8 % (42-52); Hemoglobin 17.2 g/dL (14.0-18.0); Immature Granulocytes # (auto) 0.02 K/uL (0.00-0.02); Immature Granulocytes % (auto) 0.3 %; Lymphocytes # (auto) 2.28 K/uL (1.2-3.4); Lymphocytes % (auto) 34.3 %; Mean Corpuscular Hemoglobin 34.3 pg (25-34); Mean Corpuscular Hgb Conc 35.2 g/dL (32-36); Mean Corpuscular Volume 97.2 fL (80-100); Mean Platelet Volume 10.5 fL (7.4-10.4); Monocytes # (auto) 0.37 K/uL (0.11-0.59); Monocytes % (auto) 5.6 %; Neutrophils # (auto) 3.85 K/uL (1.4-6.5); Neutrophils % (auto) 57.8 %; Platelet Count 266 K/uL (130-400); RDW Coefficient of Variation 13.9 % (11.5-14.5); RDW Standard Deviation 49.5 fL (36.4-46.3); Red Blood Count 5.02 M/uL (4.7-6.1); White Blood Count 6.65 K/uL (4.8-10.8)
[2022-04-08 21:46] LABS: Acetaminophen < 3 ug/ml (10-30); Albumin Globulin Ratio 1.6 (0.9-2); Albumin Level 5.5 gm/dl (3.4-5.0); BUN Creatinine Ratio 8.9 (10-20); Bilirubin,Total 0.6 mg/dl (0.2-1.0); Calcium 9.7 mg/dl (8.5-10.1); Creatinine Clr Calc Pharmacy 148.7 ml/min; Est GFR (African American) 138.7 ml/min; Est GFR (Non-African American) 119.7 ml/min; Globulin 3.5 gm/dl (2.5-4.0); Potassium 3.6 mmol/L (3.5-5.1); Salicylate < 3.0 mg/dl (3.0-30)
[2022-04-08] MEDS ORDERED: MULTI-VITAMIN INFUSION 10 ML, THIAMINE HCL 100 MG, FOLIC ACID 1 MG in SODIUM CHLORIDE 0... IV ONE (21:58)
[2022-04-08] MEDS ORDERED: ATIVAN IV ALCOHOL WITHDRAWL IV SCH (22:00)
[2022-04-08 22:43] LABS: Appearance Urine Clear (Clear); Bilirubin Urine Negative (Negative); Blood Urine Negative (Negative); Color Urine Yellow; Glucose Urine UA Negative (Negative); Ketones Urine Trace (Negative); Leukocyte Esterase Urine Negative (Negative); Nitrite Urine Negative (Negative); Protein Urine Negative (Negative); Urobilinogen Urine Negative (Negative); pH Urine 6.5 (4.5-7.5)
[2022-04-08 23:04] LABS: Amphetamines+Metham, Urine Neg (Neg); Barbiturates, Urine Neg (Neg); Benzodiazepine, Urine Neg (Neg); Cocaine, Urine Neg (Neg); MDMA (Ecstacy), Urine Neg (Neg); Methadone, Urine Neg (Neg); Opiate, Urine Neg (Neg); Phencyclidine, Urine Neg (Neg)
[2022-04-08] MEDS ORDERED: LORazepam 2 MG in SYRINGE 1 ML IV PRN (23:41)
[2022-04-08] MEDS ORDERED: ATIVAN IV ALCOHOL WITHDRAWL IV PRN (23:41)
[2022-04-08] MEDS ORDERED: LORazepam 3 MG in SYRINGE 1.5 ML IV PRN (23:41)
[2022-04-08] MEDS ORDERED: LORAZEPAM 2MG IV ACTIVE PROTOCOL IV PRN ×2 (23:45)
[2022-04-08] MEDS ORDERED: LORAZEPAM 1MG IV ACTIVE PROTOCOL IV PRN ×2 (23:45)
[2022-04-08] MEDS ORDERED: LORAZEPAM 3MG IV ACTIVE PROTOCOL IV PRN ×2 (23:45)
[2022-04-08] MEDS ORDERED: LORazepam 2 MG/1 ML VIAL ONE (23:50)
[2022-04-08] MEDS: LORazepam 1 MG in SYRINGE 0.5 ML IV PRN (23:57)
--- NOTE | 2022-04-09 01:13 | Emergency Department Note ---
Impression & Plan Alcohol abuse, Alcohol withdrawal, Alcoholic hepatitis, Suicidal ideation ED Provider Note CHIEF COMPLAINT: Alcohol intoxication, suicidal and homicidal threats HISTORY OF PRESENT ILLNESS: This patient presents to the emergency department with his and police after domestic incident. Patient and his have been drinking heavily for at least 2 days. Apparently got into an argument tonight and were threatening to kill each other. The patient had contacted his sister and brother, he is not certain who called the police but they arrived on scene. Patient does have a history of alcohol abuse and secondary liver trouble. Denies any suicidal or homicidal thoughts at this time. Patient's is also a patient here however he has not able to speak about reasons he is here outside of mentioning his 's mental illness. He does admit to drinking heavily most days. REVIEW OF SYSTEMS: A review of systems was performed with positives and pertinent negatives listed in the history of present illness. 10 systems were reviewed and are otherwise negative. ALLERGIES: see below MEDICATIONS: see below PMH: see below SOCIAL HISTORY: see below DDx:. Mood disorder, infection, hypoglycemia, electrolyte abnormalities, cardiac sources, intracerebral event, toxicologic, trauma, neurologic, as well as other pathologies. PHYSICAL EXAM: EMERGENCY DEPARTMENT COURSE/MDM: This patient was evaluated and appeared to be in no significant distress. Physical examination reveals a flatness to the bilateral face, patient states he is not able to make a smile and is difficult for him to speak. He does admit to fullness when swallowing. CT imaging of the head and neck was performed and reveals no evidence of acute intracranial pathology. 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 MONITORING: An order for cardiac monitoring was placed and the patient is noted to be in a sinus tachycardia at 95 beats per minute. RADIOLOGY: none EKG:none DISPOSITION:Home Past Med/Surg History Medical History Abdominal pain Acute sinusitis Alcohol abuse with alcohol-induced anxiety disorder Chest pain Dizziness BRITTNY (generalized anxiety disorder) Headache Hypokalemia Lab test negative for COVID-19 virus Left leg cellulitis No pertinent family history Pain, dental Surgical History No pertinent past surgical history Family History Other No significant family history Social History Smoking Status: Never smoker Tobacco Type: Cigarettes and E-cigarettes / Vaping Second Hand Exposure: No; Hx Alcohol Use: No Hx Substance Use: No Preferred Language: Thai Communication Ability: Effective Visual Impairment: No Limitations Hearing Ability: Normal Motor Pool Driver Required: No Beliefs That Will Affect Care: None marital status: Current Living Situation: Spouse current occupational status: employed Feels Safe at Home: Yes Childhood Exposure to Second-Hand Smoke: No Assistive Devices: Glasses Allergies Allergies Allergy/AdvReac Type Severity Reaction Status Date / Time bupropion [From Wellbutrin] AdvReac Severe anxiety, Verified 04/08/22 21:09 confussion buspirone [From BuSpar] AdvReac Intermediate Shaking/john Verified 04/08/22 21:09 mor gluten AdvReac Unknown Unknown Verified 04/08/22 21:09 milk AdvReac Unknown Unknown Verified 04/08/22 21:09 antihistamines AdvReac Intermediate "Just Uncoded 03/07/22 16:54 Don't Feel Right When I Take Them" Home Meds Home Medications Medication Instructions Recorded Confirmed fexofenadine 180 mg tablet 180 mg PO DAILY 03/07/22 03/07/22 pseudoephedrine HCl 120 mg 120 mg PO Q12 PRN 03/07/22 03/07/22 capsule,extended release Results & Data (ED) Vital Signs Vital Signs - 24 hr 04/08/22 21:11 04/08/22 22:35 04/08/22 23:49 Temperature 36.8 C Temperature Source Oral Pulse Rate 110 H Pulse Rate [Right] 95 H 108 H Pulse Rhythm Regular Pulse Rhythm [Right] Regular Pulse Strength Normal Pulse Strength [Right] Normal Respiratory Rate 22 Respiratory Effort / Characteristics Non-Labored Spontaneous Non-Labored Spontaneous Respiratory Depth Normal Normal Respiratory Pattern Regular Regular Blood Pressure 143/112 H Blood Pressure [Right Arm] 126/85 126/87 Blood Pressure Mean 122 Blood Pressure Mean [Right Arm] 98 100 Blood Pressure Position Sitting Blood Pressure Position [Right Arm] Lying Pulse Oximetry 98 98 98 Oxygen Delivery Method Room Air Room Air Room Air Sepsis Recent Fever Within 48 Hours No Sepsis New/Unexplained Change in Mental Status N/A Sepsis Action Taken by Nursing No Action Required Laboratory Data Result diagrams: 04/08/22 21:15 04/08/22 21:15 Lab Results 04/08/22 04/08/22 04/08/22 Range/Units 21:15 21:15 21:15 WBC 6.65 (4.8-10.8) K/uL RBC 5.02 (4.7-6.1) M/uL Hgb 17.2 (14.0-18.0) g/dL Hct 48.8 (42-52) % MCV 97.2 (80-100) fL MCH 34.3 H (25-34) pg MCHC 35.2 (32-36) g/dL RDW Std Deviation 49.5 H (36.4-46.3) fL RDW Coeff of Bryanna 13.9 (11.5-14.5) % Plt Count 266 (130-400) K/uL MPV 10.5 H (7.4-10.4) fL Immature Gran % (Auto) 0.3 % Neut % (Auto) 57.8 % Lymph % (Auto) 34.3 % [place] % (Auto) 5.6 % Eos % (Auto) 0.9 % Baso % (Auto) 1.1 % Neut # (Auto) 3.85 (1.4-6.5) K/uL Lymph # (Auto) 2.28 (1.2-3.4) K/uL [place] # (Auto) 0.37 (0.11-0.59) K/uL Eos # (Auto) 0.06 (0-0.5) K/uL Baso # (Auto) 0.07 (0-0.2) K/uL Immature Gran # (Auto) 0.02 (0.00-0.02) K/uL Sodium 140 (136-145) mmol/L Potassium 3.6 (3.5-5.1) mmol/L Chloride 100 (98-107) mmol/L Carbon Dioxide 24 (21-32) mmol/L Anion Gap 16 H (3-11) BUN 7 (6-23) mg/dl Creatinine 0.79 (0.6-1.4) mg/dl Est Cr Clr Drug Dosing 148.7 ml/min Est GFR ( Amer) 138.7 ml/min Est GFR (Non-Af Amer) 119.7 ml/min BUN/Creatinine Ratio 8.9 L (10-20) Glucose 97 (70-99(Fasting)) mg/dl Calcium 9.7 (8.5-10.1) mg/dl Total Bilirubin 0.6 (0.2-1.0) mg/dl AST 169 H (13-39) U/L ALT 146 H (7-52) U/L Alkaline Phosphatase 57 (34-104) U/L Total Protein 9.0 H (6.0-8.3) gm/dl Albumin 5.5 H (3.4-5.0) gm/dl Globulin 3.5 (2.5-4.0) gm/dl Albumin/Globulin Ratio 1.6 (0.9-2) TSH 1.435 (0.300-4.500) uIu/ml Urine Color Urine Appearance (Clear) Urine pH (4.5-7.5) Ur Specific [place] (1.000-1.030) Urine Protein (Negative) Urine Glucose (UA) (Negative) Urine Ketones (Negative) Urine Blood (Negative) Urine Nitrite (Negative) Urine Bilirubin (Negative) Urine Urobilinogen (Negative) Ur Leukocyte Esterase (Negative) Salicylates (3.0-30) mg/dl Urine Opiates Screen (Neg) Ur Methadone, Qual (Neg) Acetaminophen (10-30) ug/ml Urine Barbiturates (Neg) Ur Phencyclidine (PCP) (Neg) U Amphetamin/Meth Scrn (Neg) MDMA (Ecstasy) Screen (Neg) U Benzodiazepines Scrn (Neg) Ur Cocaine Metabolite (Neg) U Marijuana (THC) Screen (Neg) Ethyl Alcohol mg/dL (<10.0) mg/dl 04/08/22 04/08/22 04/08/22 Range/Units 21:15 21:15 22:28 WBC (4.8-10.8) K/uL RBC (4.7-6.1) M/uL Hgb (14.0-18.0) g/dL Hct (42-52) % MCV (80-100) fL MCH (25-34) pg MCHC (32-36) g/dL RDW Std Deviation (36.4-46.3) fL RDW Coeff of Bryanna (11.5-14.5) % Plt Count (130-400) K/uL MPV (7.4-10.4) fL Immature Gran % (Auto) % Neut % (Auto) % Lymph % (Auto) % [place] % (Auto) % Eos % (Auto) % Baso % (Auto) % Neut # (Auto) (1.4-6.5) K/uL Lymph # (Auto) (1.2-3.4) K/uL [place] # (Auto) (0.11-0.59) K/uL Eos # (Auto) (0-0.5) K/uL Baso # (Auto) (0-0.2) K/uL Immature Gran # (Auto) (0.00-0.02) K/uL Sodium (136-145) mmol/L Potassium (3.5-5.1) mmol/L Chloride (98-107) mmol/L Carbon Dioxide (21-32) mmol/L Anion Gap (3-11) BUN (6-23) mg/dl Creatinine (0.6-1.4) mg/dl Est Cr Clr Drug Dosing ml/min Est GFR ( Amer) ml/min Est GFR (Non-Af Amer) ml/min BUN/Creatinine Ratio (10-20) Glucose (70-99(Fasting)) mg/dl Calcium (8.5-10.1) mg/dl Total Bilirubin (0.2-1.0) mg/dl AST (13-39) U/L ALT (7-52) U/L Alkaline Phosphatase (34-104) U/L Total Protein (6.0-8.3) gm/dl Albumin (3.4-5.0) gm/dl Globulin (2.5-4.0) gm/dl Albumin/Globulin Ratio (0.9-2) TSH (0.300-4.500) uIu/ml Urine Color Urine Appearance (Clear) Urine pH (4.5-7.5) Ur Specific [place] (1.000-1.030) Urine Protein (Negative) Urine Glucose (UA) (Negative) Urine Ketones (Negative) Urine Blood (Negative) Urine Nitrite (Negative) Urine Bilirubin (Negative) Urine Urobilinogen (Negative) Ur Leukocyte Esterase (Negative) Salicylates < 3.0 L (3.0-30) mg/dl Urine Opiates Screen Neg (Neg) Ur Methadone, Qual Neg (Neg) Acetaminophen < 3 L (10-30) ug/ml Urine Barbiturates Neg (Neg) Ur Phencyclidine (PCP) Neg (Neg) U Amphetamin/Meth Scrn Neg (Neg) MDMA (Ecstasy) Screen Neg (Neg) U Benzodiazepines Scrn Neg (Neg) Ur Cocaine Metabolite Neg (Neg) U Marijuana (THC) Screen Neg (Neg) Ethyl Alcohol mg/dL 334.7 H (<10.0) mg/dl 04/08/22 Range/Units 22:28 WBC (4.8-10.8) K/uL RBC (4.7-6.1) M/uL Hgb (14.0-18.0) g/dL Hct (42-52) % MCV (80-100) fL MCH (25-34) pg MCHC (32-36) g/dL RDW Std Deviation (36.4-46.3) fL RDW Coeff of Bryanna (11.5-14.5) % Plt Count (130-400) K/uL MPV (7.4-10.4) fL Immature Gran % (Auto) % Neut % (Auto) % Lymph % (Auto) % [place] % (Auto) % Eos % (Auto) % Baso % (Auto) % Neut # (Auto) (1.4-6.5) K/uL Lymph # (Auto) (1.2-3.4) K/uL [place] # (Auto) (0.11-0.59) K/uL Eos # (Auto) (0-0.5) K/uL Baso # (Auto) (0-0.2) K/uL Immature Gran # (Auto) (0.00-0.02) K/uL Sodium (136-145) mmol/L Potassium (3.5-5.1) mmol/L Chloride (98-107) mmol/L Carbon Dioxide (21-32) mmol/L Anion Gap (3-11) BUN (6-23) mg/dl Creatinine (0.6-1.4) mg/dl Est Cr Clr Drug Dosing ml/min Est GFR ( Amer) ml/min Est GFR (Non-Af Amer) ml/min BUN/Creatinine Ratio (10-20) Glucose (70-99(Fasting)) mg/dl Calcium (8.5-10.1) mg/dl Total Bilirubin (0.2-1.0) mg/dl AST (13-39) U/L ALT (7-52) U/L Alkaline Phosphatase (34-104) U/L Total Protein (6.0-8.3) gm/dl Albumin (3.4-5.0) gm/dl Globulin (2.5-4.0) gm/dl Albumin/Globulin Ratio (0.9-2) TSH (0.300-4.500) uIu/ml Urine Color Yellow Urine Appearance Clear (Clear) Urine pH 6.5 (4.5-7.5) Ur Specific [place] 1.010 (1.000-1.030) Urine Protein Negative (Negative) Urine Glucose (UA) Negative (Negative) Urine Ketones Trace H (Negative) Urine Blood Negative (Negative) Urine Nitrite Negative (Negative) Urine Bilirubin Negative (Negative) Urine Urobilinogen Negative (Negative) Ur Leukocyte Esterase Negative (Negative) Salicylates (3.0-30) mg/dl Urine Opiates Screen (Neg) Ur Methadone, Qual (Neg) Acetaminophen (10-30) ug/ml Urine Barbiturates (Neg) Ur Phencyclidine (PCP) (Neg) U Amphetamin/Meth Scrn (Neg) MDMA (Ecstasy) Screen (Neg) U Benzodiazepines Scrn (Neg) Ur Cocaine Metabolite (Neg) U Marijuana (THC) Screen (Neg) Ethyl Alcohol mg/dL (<10.0) mg/dl Administered Medications Lorazepam 1 mg/ Syringe 1 mls @ 2 mls/min IV UD PRN; Protocol PRN Reason: EtOH Withdrawal AWSS Score 6,7 Stop: 05/08/22 23:40 Last Admin: 04/08/22 23:57 Dose: 2 mls/min Documented by: [id number] Discontinued Medications Multivitamins 10 ml/ Thiamine HCl 100 mg/ Folic Acid 1 mg/Sodium Chloride 1,011.2 mls @ 1,011.2 mls/hr IV .Q1H ONE Stop: 04/08/22 22:57 Last Infusion: 04/08/22 23:46 Dose: 0 mls/hr Documented by: [id number] Admin: 04/08/22 22:54 Dose: 1,011.2 mls/hr Documented by: [id number] Lorazepam (Lorazepam 2 Mg/1 Ml Vial) Confirm Administered Dose 1 mg .ROUTE .STK- MED ONE Stop: 04/08/22 23:51 Last Admin: 04/08/22 23:56 Dose: Not Given Documented by: [id number] Discharge Plan Visit Data Chief Complaint: Mental Health Evaluation Discharge Problem: Alcohol abuse, Alcohol withdrawal, Alcoholic hepatitis, Suicidal ideation Forms Stand Alone Forms: [facility], Suicide Prevention Resources Prescriptions Prescriptions: No Action Sudafed 12 Hour 120 mg Capsule, Extended Release 120 mg PO Q12 PRN (Reason: Congestion) RF: 0 fexofenadine [Anuradha] 180 mg Tablet 180 mg PO DAILY RF: 0 Referrals Referrals: Bri Cervantes MD [Primary Care Provider] -
--- NOTE | 2022-04-09 02:39 | Emergency Department Note ---
ED Visit Note This case was signed out to me at change of shift awaiting sobriety. The patient will require psychiatric evaluation at that time. 0630: The patient rested overnight. He was evaluated by the ED psychiatric rehabilitation case coordinator. The patient made some significant suicidal statements overnight. His family is very concerned for his safety. He will require dual diagnosis placement for inpatient psychiatric care. A bed search is underway. They have referred the patient to [facility]. The case will be signed out to Dr. Geiger at change of shift. . : Alcohol withdrawal Qualifiers: Complication of substance-induced condition: uncomplicated Qualified Code(s): F10.230 - Alcohol dependence with withdrawal, uncomplicated Alcoholic hepatitis Qualifiers: Ascites presence: without ascites Qualified Code(s): K70.10 - Alcoholic hepatitis without ascites
[2022-04-09] MEDS ORDERED: LORazepam 2 MG/1 ML VIAL ONE (04:51)
[2022-04-09] MEDS: LORazepam 1 MG in SYRINGE 0.5 ML IV PRN ×5 (04:55→20:05)
--- NOTE | 2022-04-09 07:14 | Emergency Department Note ---
ED Visit Note ED Physician Sign Out Note: 32-year-old male arrived over the evening for evaluation of alcohol intoxication and mental health crisis. He is here on a 302 petition. Reportedly was making plans with for a murder suicide where she would kill him and then kill herself. On evaluation he is mildly intoxicated but is quite tremulous and appears to be withdrawing. He received 1 mg Ativan without much improvement and thus 2 mg IV Ativan was ordered along with normal saline bolus. I discussed the case with mental health case management who notes patient will need medical observation prior to psychiatric inpatient stay which I agree with. He is at high risk of worsening withdrawal with previous seizures when he stops drinking alcohol. Hospitalist consulted for further management Peewee Geiger MD : Alcohol withdrawal Qualifiers: Complication of substance-induced condition: uncomplicated Qualified Code(s): F10.230 - Alcohol dependence with withdrawal, uncomplicated Alcoholic hepatitis Qualifiers: Ascites presence: without ascites Qualified Code(s): K70.10 - Alcoholic hepatitis without ascites
[2022-04-09] MEDS ORDERED: ONDANSETRON 4 MG OD TAB PO STA (07:37)
[2022-04-09] MEDS ORDERED: LORazepam 2 MG in SYRINGE 1 ML IV STA (08:42)
[2022-04-09] MEDS ORDERED: SODIUM CHLORIDE 0.9% 1000ML 1,000 ML IV ONE (08:42)
[2022-04-09] MEDS ORDERED: ONDANSETRON INJ 2 MG/ML 2 ML VIAL IV PRN (09:31)
[2022-04-09] MEDS ORDERED: GABAPENTIN 400 MG CAP PO ONE (09:38)
[2022-04-09] MEDS ORDERED: GABAPENTIN 800MG ALCOHOL WITHDRAWAL LOAD PO STA (09:38)
--- NOTE | 2022-04-09 09:41 | History & Physical Report ---
Date of Service April 09, 2022 Assessment & Plan (1) Alcohol withdrawal: Plan: 32 yo male admitted qith suicidal ideations. Patient will be placed on ativan Alcohol withdrawal scale as well as gabapentin taper. consult psych (2) Alcohol abuse: Plan: Patient is going through withdrawl. Patient is undecided if he wants to go to rehab. Will reassess in AM. (3) DVT prophylaxis: (4) Enlarged liver: Plan: Noted on previous CT scan. If patient continues to drink, I anticipate he will get cirrhosis. Plan: DVT proph: lovenox History of Present Illness Chief Complaint: Alcohol withdrawal, suicide ideation Primary Care Provider: Bri Cervantes MD This is a pleasant 32 yo male who is coming to the hospital with history of alcoholism. Patient appears to have been brought in with concern of a possible double suicide plot with his in which one would kill the other and then kill themselves. However, it appears no consensus was made as to who would perform the killings. When questioned about this, patient reports he was thinking about, but attributes this to drinking alcohol. He normally drinks vodka and drinks ingests about 30 drinks of vodka. Patient reports he gets tremors if he has not drank for 2 hours. Patient reports he has never been through delirium tremens, as he denies hallucinations. He has had alcohol withdrawal seizures. Patient currently complaining of tremors. Allergies Allergy/AdvReac Type Severity Reaction Status Date / Time bupropion [From Wellbutrin] AdvReac Severe anxiety, Verified 04/09/22 09:53 confussion buspirone [From BuSpar] AdvReac Intermediate Shaking/john Verified 04/09/22 09:53 mor gluten AdvReac Unknown Unknown Verified 04/09/22 09:53 milk AdvReac Unknown Unknown Verified 04/09/22 09:53 antihistamines AdvReac Intermediate "Just Uncoded 04/09/22 09:53 Don't Feel Right When I Take Them" Home Medications Medication Instructions Recorded Confirmed Type fexofenadine 180 mg tablet 180 mg PO DAILY 03/07/22 04/09/22 History pseudoephedrine HCl 120 mg 120 mg PO Q12 PRN 03/07/22 04/09/22 History capsule,extended release Past Med/Surg History Medical History Abdominal pain Acute sinusitis Alcohol abuse with alcohol-induced anxiety disorder Chest pain Dizziness BRITTNY (generalized anxiety disorder) Headache Hypokalemia Lab test negative for COVID-19 virus Left leg cellulitis No pertinent family history Pain, dental Surgical History No pertinent past surgical history Family History Other No significant family history Social History Smoking Status: Current every day smoker Tobacco Type: Cigarettes and E-cigarettes / Vaping Cigarettes Per Day: 7-8 per day; Second Hand Exposure: No; Hx Alcohol Use: Yes Alcohol type: hard liquor Hx Substance Use: No Preferred Language: Indonesian Communication Ability: Effective Visual Impairment: No Limitations Hearing Ability: Normal Ice Cream Man Required: No Beliefs That Will Affect Care: None marital status: Current Living Situation: Spouse current occupational status: employed Other Information That Helps Us Care for You: No Feels Safe at Home: Declines to Answer Childhood Exposure to Second-Hand Smoke: No Assistive Devices: Glasses Review of Systems Constitutional: no fever and no body aches Eyes: no blind spots Ear, Nose, Mouth, Throat: no ear pain Respiratory: no cough Cardiovascular: no chest pain Gastrointestinal: no abdominal pain Genitourinary: no dysuria Musculoskeletal: no back pain Integumentary: no acne Neurologic: no gait abnormality Psychiatric: no behavioral changes Endocrine: no fatigue Hematologic / Lymphatic: no easy bleeding Allergy / Immunological: no GI upset with certain foods Physical Exam Constitutional: WD/WN, vitals as above Eyes: PERRL, conjunctivae normal, anicteric sclerae ENMT: external ear and nose normal, oropharynx normal Neck: trachea midline, no thyromegaly Respiratory: normal respiratory effort, lungs clear to auscultation Cardiovascular: RRR, no murmur, no edema Gastrointestinal (Abdomen): normal bowel sounds, soft, nontender, no hepatosplenomegaly Musculoskeletal: no cyanosis or clubbing, extremities motor strength 5/5 (postural tremors) Skin: no rashes, warm and dry Neurologic: PERRL, EOMI, accommodation nl, no face palsy, no dysarthria Psychiatric: A+Ox3, euthymic affect Lymphatic: no cervical or axillary lymphadenopathy Results & Data Results & Data ([facility]) Vital Signs (Past 12 Hours) Vital Signs Temp Pulse Resp BP Pulse Ox 04/09/22 09:00 82 12 94 04/09/22 07:15 36.7 C 04/09/22 07:00 85 16 130/69 94 04/09/22 04:55 37.1 C 104 H 20 128/97 97 04/08/22 23:49 108 H 22 126/87 98 04/08/22 22:35 95 H 18 126/85 98 PG Care Time/CCT Total # of Minutes Spent Total Time Spent with Patient: Total time spent is greater than 50% in coordination of care (as documented) at patient's floor/unit and/or counseling patient: Coding Level of Care Code 09660 Initial Inpt Care Lvl 3 Diagnoses Alcohol abuse F10.10 Alcohol withdrawal F10.230 Complication of substance-induced condition: uncomplicated DVT prophylaxis Z29.9 Enlarged liver R16.0 (1) Alcohol withdrawal Complication of substance-induced condition: uncomplicated Qualified Code(s): F10.230 - Alcohol dependence with withdrawal, uncomplicated
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
[2022-04-09] MEDS: GABAPENTIN 400 MG CAP PO SCH ×2 (16:36→21:22)
[2022-04-09] MEDS ORDERED: ENOXAPARIN INJ 40 MG/0.4 ML SYR SQ ONE (22:31)
[2022-04-10] MEDS: LORazepam 1 MG in SYRINGE 0.5 ML IV PRN ×5 (01:57→23:25)
[2022-04-10] MEDS: GABAPENTIN 400 MG CAP PO SCH ×3 (05:44→20:29)
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
[2022-04-10] MEDS: ENOXAPARIN INJ 40 MG/0.4 ML SYR SQ SCH (20:30)
--- NOTE | 2022-04-10 21:34 | Hospitalist Progress Note ---
Date of Service April 10, 2022 Assessment & Plan (1) Alcohol withdrawal: Plan: 32 yo male admitted qith suicidal ideations. Patient will be placed on ativan Alcohol withdrawal scale as well as gabapentin taper. consult psych: appreciate input. On 04/10, he continues to have tremors and is scoring 6-7 on the scale. will continue gabapenin taper. Patient cannot sign out AMA. (2) Alcohol abuse: Plan: Patient is going through withdrawl. Patient is undecided if he wants to go to rehab. (3) DVT prophylaxis: Plan: lovenox (4) Enlarged liver: Plan: Noted on previous CT scan. If patient continues to drink, I anticipate he will get cirrhosis. Plan: DVT proph: lovenox Admission and Anticipated Discharge Date Admission Date: April 09, 2022 Subjective 32 yo male reports that he continues to have tremors. He currently denies any hallucinations. Review of Systems Review of Systems: All systems reviewed & are unremarkable except as noted in HPI & below Physical Exam Constitutional: WD/WN, vitals as above Eyes: PERRL, conjunctivae normal, anicteric sclerae ENMT: external ear and nose normal, oropharynx normal Neck: trachea midline, no thyromegaly Respiratory: normal respiratory effort, lungs clear to auscultation Cardiovascular: RRR, no murmur, no edema Gastrointestinal (Abdomen): normal bowel sounds, soft, nontender, no hepatosplenomegaly Musculoskeletal: no cyanosis or clubbing, extremities motor strength 5/5 (postural tremors) Skin: no rashes, warm and dry Neurologic: PERRL, EOMI, accommodation nl, no face palsy, no dysarthria Psychiatric: A+Ox3, euthymic affect Lymphatic: no cervical or axillary lymphadenopathy Results & Data Results & Data ([facility]) Vital Signs (Past 12 Hours) Vital Signs Temp Pulse Pulse Resp BP Pulse Ox Pulse Ox 04/10/22 17:54 36.4 C L 77 20 135/88 99 04/10/22 16:00 67 04/10/22 15:05 36.6 C 75 18 145/83 H 96 04/10/22 13:00 95 04/10/22 12:00 70 16 125/80 PG Care Time/CCT Total # of Minutes Spent Total Time Spent with Patient: Total time spent is greater than 50% in coordination of care (as documented) at patient's floor/unit and/or counseling patient: Coding Level of Care Code 27476 Subseq Hosp Care Lvl 2 Diagnoses Alcohol withdrawal F10.230 Complication of substance-induced condition: uncomplicated Alcohol abuse F10.10 DVT prophylaxis Z29.9 Enlarged liver R16.0 (1) Alcohol withdrawal Complication of substance-induced condition: uncomplicated Qualified Code(s): F10.230 - Alcohol dependence with withdrawal, uncomplicated
[2022-04-11 07:01] LABS: Hematocrit (blood only) 43.9 % (42-52); Hemoglobin 15.1 g/dL (14.0-18.0); Mean Corpuscular Hemoglobin 33.4 pg (25-34); Mean Corpuscular Hgb Conc 34.4 g/dL (32-36); Mean Corpuscular Volume 97.1 fL (80-100); Mean Platelet Volume 10.6 fL (7.4-10.4); Platelet Count 190 K/uL (130-400); RDW Coefficient of Variation 13.4 % (11.5-14.5); RDW Standard Deviation 47.6 fL (36.4-46.3); Red Blood Count 4.52 M/uL (4.7-6.1); White Blood Count 5.17 K/uL (4.8-10.8)
[2022-04-11] MEDS ORDERED: LORazepam 2 MG/1 ML VIAL ONE (07:41)
[2022-04-11] MEDS: LORazepam 1 MG in SYRINGE 0.5 ML IV PRN ×3 (07:43→21:05)
[2022-04-11 07:44] LABS: BUN Creatinine Ratio 12.2 (10-20); Calcium 9.4 mg/dl (8.5-10.1); Creatinine Clr Calc Pharmacy 158.8 ml/min; Est GFR (African American) 142.5 ml/min; Est GFR (Non-African American) 122.9 ml/min
[2022-04-11] MEDS: GABAPENTIN 400 MG CAP PO SCH ×2 (10:12→22:21)
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
--- NOTE | 2022-04-11 20:39 | Hospitalist Progress Note ---
Date of Service April 11, 2022 Assessment & Plan (1) Alcohol withdrawal: Plan: 32 yo male admitted qith suicidal ideations. Patient will be placed on ativan Alcohol withdrawal scale as well as gabapentin taper. consult psych: appreciate input. On 04/10, he continues to have tremors and is scoring 6-7 on the scale. will continue gabapenin taper. Patient cannot sign out AMA. On 04/11 the frequency of his lorazepam appears to be imprving. He is on pace for 3-4 mg of ativan. The previous 2 days patient received 5 mg of ativan each day. Continue tapering gabapentin. (2) Alcohol abuse: Plan: Patient is going through withdrawl. Patient is undecided if he wants to go to rehab. (3) DVT prophylaxis: Plan: lovenox (4) Enlarged liver: Plan: Noted on previous CT scan. If patient continues to drink, I anticipate he will get cirrhosis. Plan: DVT proph: lovenox Admission and Anticipated Discharge Date Admission Date: April 09, 2022 Subjective 32 yo male reports feeling better. He states his tremors have improved. Review of Systems Review of Systems: All systems reviewed & are unremarkable except as noted in HPI & below Physical Exam Constitutional: WD/WN, vitals as above Eyes: PERRL, conjunctivae normal, anicteric sclerae ENMT: external ear and nose normal, oropharynx normal Neck: trachea midline, no thyromegaly Respiratory: normal respiratory effort, lungs clear to auscultation Cardiovascular: RRR, no murmur, no edema Gastrointestinal (Abdomen): normal bowel sounds, soft, nontender, no hepatosplenomegaly Musculoskeletal: no cyanosis or clubbing, extremities motor strength 5/5 (postural tremors) Skin: no rashes, warm and dry Neurologic: PERRL, EOMI, accommodation nl, no face palsy, no dysarthria Psychiatric: A+Ox3, euthymic affect Lymphatic: no cervical or axillary lymphadenopathy Results & Data Results & Data ([facility]) Vital Signs (Past 12 Hours) Vital Signs Temp Pulse Pulse Resp BP Pulse Ox 04/11/22 17:30 36.4 C L 62 16 124/83 98 04/11/22 14:52 66 04/11/22 11:14 36.7 C 64 18 120/77 98 PG Care Time/CCT Total # of Minutes Spent Total Time Spent with Patient: Total time spent is greater than 50% in coordination of care (as documented) at patient's floor/unit and/or counseling patient: Coding Level of Care Code 61159 Subseq Hosp Care Lvl 2 Diagnoses Alcohol withdrawal F10.230 Complication of substance-induced condition: uncomplicated Alcohol abuse F10.10 DVT prophylaxis Z29.9 Enlarged liver R16.0 (1) Alcohol withdrawal Complication of substance-induced condition: uncomplicated Qualified Code(s): F10.230 - Alcohol dependence with withdrawal, uncomplicated
[2022-04-11] MEDS: ENOXAPARIN INJ 40 MG/0.4 ML SYR SQ SCH (21:04)
[2022-04-12 08:22] LABS: BUN Creatinine Ratio 12.2 (10-20); Calcium 9.4 mg/dl (8.5-10.1); Creatinine Clr Calc Pharmacy 143.3 ml/min; Est GFR (African American) 136.6 ml/min; Est GFR (Non-African American) 117.8 ml/min; Potassium 3.8 mmol/L (3.5-5.1)
[2022-04-12 08:24] LABS: Hematocrit (blood only) 44.5 % (42-52); Hemoglobin 15.5 g/dL (14.0-18.0); Mean Corpuscular Hemoglobin 33.9 pg (25-34); Mean Corpuscular Hgb Conc 34.8 g/dL (32-36); Mean Corpuscular Volume 97.4 fL (80-100); Mean Platelet Volume 10.8 fL (7.4-10.4); Platelet Count 195 K/uL (130-400); RDW Coefficient of Variation 13.1 % (11.5-14.5); RDW Standard Deviation 46.3 fL (36.4-46.3); Red Blood Count 4.57 M/uL (4.7-6.1); White Blood Count 5.74 K/uL (4.8-10.8)
--- NOTE | 2022-04-12 10:04 | Communication Note ---
Date of Service: April 12, 2022 Patient no longer appears to be going through withdrawal. Patient is cleared medically. will defer discharge to Psych.
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
[2022-04-12] MEDS ORDERED: GABAPENTIN 400 MG CAP PO SCH (22:00)
== END 2022-04-12 15:33 | disposition home or self-care (01) | DRG 897 ==
LOC: ED 20:44 → 1E 04-09 09:32 → 2S 04-10 16:30
DX: Z62.810 Personal history of physical and sexual abuse in childhood; Z88.8 Allergy status to other drugs, medicaments and biological substances; Z91.018 Allergy to other foods; Z91.011 Allergy to milk products; F32.9 Major depressive disorder, single episode, unspecified; E87.6 Hypokalemia; K70.10 Alcoholic hepatitis without ascites; F41.1 Generalized anxiety disorder; F10.230 Alcohol dependence with withdrawal, uncomplicated; F17.210 Nicotine dependence, cigarettes, uncomplicated; R45.851 Suicidal ideations

== ENCOUNTER 2022-06-20 20:58 | Inpatient (IN) ==
[2022-06-20] MEDS ORDERED: MULTI-VITAMIN INFUSION 10 ML, THIAMINE HCL 100 MG, FOLIC ACID 1 MG in SODIUM CHLORIDE 0... IV ONE (22:08)
[2022-06-20 22:56] LABS: Basophils # (auto) 0.09 K/uL (0-0.2); Basophils % (auto) 1.6 %; Eosinophils # (auto) 0.17 K/uL (0-0.50); Eosinophils % (auto) 2.9 %; Hematocrit (blood only) 45.6 % (40.1-51.0); Hemoglobin 15.9 g/dl (14.0-18.0); Immature Granulocytes # (auto) 0.03 K/uL (0.00-0.02); Immature Granulocytes % (auto) 0.5 %; Lymphocytes # (auto) 1.84 K/uL (1.2-3.4); Lymphocytes % (auto) 31.8 %; Mean Corpuscular Hemoglobin 33.6 pg (25.0-34.0); Mean Corpuscular Hgb Conc 34.9 g/dL (32.0-36.0); Mean Corpuscular Volume 96.4 fL (80.0-100.0); Mean Platelet Volume 11.1 fL (9.4-12.4); Monocytes # (auto) 0.51 K/uL (0.24-0.82); Monocytes % (auto) 8.8 %; Neutrophils # (auto) 3.14 K/uL (1.4-6.5); Neutrophils % (auto) 54.4 %; Platelet Count 172 K/uL (130-400); RDW Coefficient of Variation 12.7 % (11.5-14.5); RDW Standard Deviation 45.4 fL (36.4-46.3); Red Blood Count 4.73 M/uL (4.63-6.08); White Blood Count 5.78 K/ul (4.8-10.8)
[2022-06-20 23:10] LABS: Alanine Aminotransferase 165 U/L (7-52); Albumin Globulin Ratio 1.6 (0.9-2); Albumin Level 5.2 gm/dl (3.4-5.0); Alkaline Phosphatase 58 U/L (34-104); Anion Gap 16 (3-11); Aspartate Aminotransferase 247 U/L (13-39); BUN Creatinine Ratio 6.6 (10-20); Bilirubin,Total 0.7 mg/dl (0.2-1.0); Blood Urea Nitrogen 6 mg/dl (6-23); Calcium 9.5 mg/dl (8.5-10.1); Carbon Dioxide 24 mmol/L (21-32); Chloride 102 mmol/L (98-107); Est GFR (African American) 129.7 ml/min; Est GFR (Non-African American) 111.9 ml/min; Globulin 3.3 gm/dl (2.5-4.0); Glucose 105 mg/dl (70-99(Fasting)); Potassium 3.8 mmol/L (3.5-5.1); Sodium 142 mmol/L (136-145); Total Protein 8.5 gm/dl (6.0-8.3)
[2022-06-20 23:27] LABS: Acetaminophen < 3 ug/ml (10-30); Salicylate < 3.0 mg/dl (3.0-30)
[2022-06-20 23:30] LABS: Appearance Urine Clear (Clear); Bilirubin Urine Negative (Negative); Blood Urine Negative (Negative); Color Urine Yellow; Glucose Urine UA Negative (Negative); Ketones Urine Negative (Negative); Leukocyte Esterase Urine Negative (Negative); Nitrite Urine Negative (Negative); Protein Urine Negative (Negative); Specific Gravity Urine 1.006 (1.000-1.030); Urobilinogen Urine Negative (Negative)
[2022-06-20 23:39] LABS: Lipase 39 U/L (11-82)
[2022-06-20 23:59] LABS: Amphetamines+Metham, Urine Neg (Neg); Barbiturates, Urine Neg (Neg); Benzodiazepine, Urine Pos (Neg); Cocaine, Urine Neg (Neg); MDMA (Ecstacy), Urine Neg (Neg); Methadone, Urine Neg (Neg); Opiate, Urine Neg (Neg); Phencyclidine, Urine Neg (Neg)
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
--- NOTE | 2022-06-21 01:34 | History & Physical Report ---
Date of Service June 21, 2022 Assessment & Plan (1) Alcohol withdrawal: Plan: Alcohol withdrawal/alcohol intoxication/alcohol use disorder/anxiety and depression- Alcohol level 322 upon admission The patient will be admitted to telemetry for serial cardiac enzymes, serial EKG's, cardiac rhythm monitoring Chlordiazepoxide 25 mg p.o. twice daily He received 3 doses of IV diazepam while in the ED AWSS protocol with IV Ativan Complete banana bag Thiamine 100 mg p.o. daily Folic acid 1 mg p.o. daily Multivitamin 1 p.o. daily Serial CBC with differential, chemistry profile and magnesium levels Consult psychiatry (2) Alcoholic intoxication: Plan: See above (3) Alcohol use disorder: Plan: See above (4) Depressive disorder: Plan: Consult psychiatry (5) Alcoholic hepatitis: Plan: AST 247, ALT 165. Both are within range of his alcoholic hepatitis episodes in the past Follow laboratory serially (6) Gastritis: Plan: Famotidine 20 mg IV every 12 hours if needed (7) Alcohol abuse: (8) Anxiety and depression: Plan: Treatment as indicated, consult psychiatry (9) AMS (altered mental status): Plan: Activity as described in HPI and ROS History of Present Illness Chief Complaint: The patient presents to the emergency department for mental health evaluation, after his contacted police with concerns that he was hurting himself, with multiple superficial lacerations on his left dorsal forearm, and had resorted to drinking again. The patient also reportedly was threatening to kill police officers, and there was a loaded gun on the table when they arrived at his home. This gun reportedly was successfully unloaded without incident by police. The patient was brought to the emergency department by EMS and police for assessment. Primary Care Provider: Bri Cervantes MD The patient is a 32-year-old male with a past medical history including mood disorder, anxiety and depression, alcohol use disorder, depressive disorder, alcoholic hepatitis, gastritis, hepatomegaly, alcohol abuse and alcohol withdrawal history. He presents to the emergency department as noted above. He reports that he began drinking again at least 3 days ago, and now feels like he has the shakes and is going through withdrawal. Allergies Allergy/AdvReac Type Severity Reaction Status Date / Time bupropion [From Wellbutrin] AdvReac Severe anxiety, Verified 06/02/22 14:57 confussion buspirone [From BuSpar] AdvReac Intermediate Shaking/john Verified 06/02/22 14:57 mor gluten AdvReac Unknown Unknown Verified 06/02/22 14:57 milk AdvReac Unknown Unknown Verified 06/02/22 14:57 antihistamines AdvReac Intermediate "Just Uncoded 06/02/22 14:57 Don't Feel Right When I Take Them" Home Medications Medication Instructions Recorded Confirmed Type fexofenadine 180 mg tablet 180 mg PO DAILY 03/07/22 06/02/22 History pseudoephedrine HCl 120 mg 120 mg PO Q12 PRN Congestion 03/07/22 06/02/22 History capsule,extended release ashwagandha root extract 500 mg 600 mg PO DAILY 04/25/22 06/02/22 History capsule chlordiazepoxide HCl 25 mg capsule 25 mg PO BID anxiety #60 caps 05/29/22 06/02/22 Rx Past Med/Surg History Medical History Abdominal pain Acute sinusitis Alcohol abuse with alcohol-induced anxiety disorder Chest pain Dizziness BRITTNY (generalized anxiety disorder) Headache Hypokalemia Lab test negative for COVID-19 virus Left leg cellulitis No pertinent family history Pain, dental Suicidal ideation Surgical History No pertinent past surgical history Family History Other No significant family history Social History Smoking Status: Never smoker Tobacco Type: Cigarettes and E-cigarettes / Vaping Cigarettes Per Day: 7-8 per day; Second Hand Exposure: No; Hx Alcohol Use: No Hx Substance Use: No Preferred Language: Nepali Communication Ability: Unable Visual Impairment: No Limitations Hearing Ability: Normal [employer] Director Required: No Beliefs That Will Affect Care: None marital status: Current Living Situation: Spouse current occupational status: employed Feels Safe at Home: Yes Childhood Exposure to Second-Hand Smoke: No Dental Care, Regularly: Yes Physical Activity Frequency: Daily Seatbelt Use: always Sunscreen Use: No Assistive Devices: None Review of Systems Review of Systems: The patient denies chest pain, palpitations, shortness of breath, dyspnea on exertion, cough, lower extremity swelling, sore throat, fevers, chills, sweats, weight change, fatigue, nausea, vomiting, diarrhea , constipation, abdominal pain, pelvic pain, blood in urine or stool, dysuria, urinary frequency or urgency, loss of consciousness, rash, abnormal bruising or bleeding, imbalance, focal or generalized weakness, generalized arthralgias or myalgias, back or neck pain, or night sweats. The review of systems is otherwise negative other than for that already noted above, and at least 10 systems have been reviewed. Physical Exam Physical Exam: The patient is awake, alert and oriented 3, well developed and well nourished, normocephalic and atraumatic, lying in bed, has mild generalized shakes, and otherwise in no acute distress. HEENT--PERRL, EOMI, mucous membranes and oropharynx dry. Neck--supple. No JVD. No bruits. Thyroid normal, trachea midline, no adenopathy. Heart--normal S1 and S2. No murmurs, rubs or gallops. Lungs--clear bilaterally, no respiratory distress, no accessory muscle use. Abdomen--normal bowel sounds and soft. Nontender. Nondistended, no hernias or masses, no organomegaly. Extremities--no cyanosis or clubbing. No edema. There are good distal pulses b/l. Dermatologic--normal skin turgor, normal color, no abnormal lymph nodes, no rash. Neurologic--cranial nerves II through XII grossly intact. Rheumatologic--normal range of motion. Psychiatric--anxious. Results & Data Results & Data ([facility]) Vital Signs (Past 12 Hours) Vital Signs Temp Pulse Pulse Resp BP BP Pulse Ox 06/21/22 00:26 97 H 20 140/91 96 06/20/22 21:06 37.1 C 103 H 16 127/93 97 O2 Del Method 06/21/22 00:26 Room Air 06/20/22 21:06 Room Air Laboratory Results Laboratory Results WBC 5.78 K/ul (4.8-10.8) 06/20/22 21:11 RBC 4.73 M/uL (4.63-6.08) 06/20/22 21:11 Hgb 15.9 g/dl (14.0-18.0) 06/20/22 21:11 Hct 45.6 % (40.1-51.0) 06/20/22 21:11 MCV 96.4 fL (80.0-100.0) 06/20/22 21:11 MCH 33.6 pg (25.0-34.0) 06/20/22 21:11 MCHC 34.9 g/dL (32.0-36.0) 06/20/22 21:11 RDW Std Deviation 45.4 fL (36.4-46.3) 06/20/22 21:11 RDW Coeff of Bryanna 12.7 % (11.5-14.5) 06/20/22 21:11 Plt Count 172 K/uL (130-400) 06/20/22 21:11 MPV 11.1 fL (9.4-12.4) 06/20/22 21:11 Immature Gran % (Auto) 0.5 % 06/20/22 21:11 Neut % (Auto) 54.4 % 06/20/22 21:11 Lymph % (Auto) 31.8 % 06/20/22 21:11 [place] % (Auto) 8.8 % 06/20/22 21:11 Eos % (Auto) 2.9 % 06/20/22 21:11 Baso % (Auto) 1.6 % 06/20/22 21:11 Neut # (Auto) 3.14 K/uL (1.4-6.5) 06/20/22 21:11 Lymph # (Auto) 1.84 K/uL (1.2-3.4) 06/20/22 21:11 [place] # (Auto) 0.51 K/uL (0.24-0.82) 06/20/22 21:11 Eos # (Auto) 0.17 K/uL (0-0.50) 06/20/22 21:11 Baso # (Auto) 0.09 K/uL (0-0.2) 06/20/22 21:11 Immature Gran # (Auto) 0.03 K/uL (0.00-0.02) H 06/20/22 21:11 Sodium 142 mmol/L (136-145) 06/20/22 21:11 Potassium 3.8 mmol/L (3.5-5.1) 06/20/22 21:11 Chloride 102 mmol/L (98-107) 06/20/22 21:11 Carbon Dioxide 24 mmol/L (21-32) 06/20/22 21:11 Anion Gap 16 (3-11) H 06/20/22 21:11 BUN 6 mg/dl (6-23) 06/20/22 21:11 Creatinine 0.91 mg/dl (0.6-1.4) 06/20/22 21:11 Est Cr Clr Drug Dosing Not Reportable 06/20/22 21:11 Est GFR ( Amer) 129.7 ml/min 06/20/22 21:11 Est GFR (Non-Af Amer) 111.9 ml/min 06/20/22 21:11 BUN/Creatinine Ratio 6.6 (10-20) L 06/20/22 21:11 Glucose 105 mg/dl (70-99(Fasting)) H 06/20/22 21:11 Calcium 9.5 mg/dl (8.5-10.1) 06/20/22 21:11 Total Bilirubin 0.7 mg/dl (0.2-1.0) 06/20/22 21:11 AST 247 U/L (13-39) H 06/20/22 21:11 ALT 165 U/L (7-52) H 06/20/22 21:11 Alkaline Phosphatase 58 U/L (34-104) 06/20/22 21:11 Total Protein 8.5 gm/dl (6.0-8.3) H 06/20/22 21:11 Albumin 5.2 gm/dl (3.4-5.0) H 06/20/22 21:11 Globulin 3.3 gm/dl (2.5-4.0) 06/20/22 21:11 Albumin/Globulin Ratio 1.6 (0.9-2) 06/20/22 21:11 Lipase 39 U/L (11-82) 06/20/22 21:11 TSH 0.527 uIu/ml (0.300-4.500) 06/20/22 21:11 Urine Color Yellow 06/20/22 21:30 Urine Appearance Clear (Clear) 06/20/22 21:30 Urine pH 7.0 (4.5-7.5) 06/20/22 21:30 Ur Specific [place] 1.006 (1.000-1.030) 06/20/22 21:30 Urine Protein Negative (Negative) 06/20/22 21:30 Urine Glucose (UA) Negative (Negative) 06/20/22 21:30 Urine Ketones Negative (Negative) 06/20/22 21:30 Urine Blood Negative (Negative) 06/20/22 21:30 Urine Nitrite Negative (Negative) 06/20/22 21:30 Urine Bilirubin Negative (Negative) 06/20/22 21:30 Urine Urobilinogen Negative (Negative) 06/20/22 21:30 Ur Leukocyte Esterase Negative (Negative) 06/20/22 21:30 Salicylates < 3.0 mg/dl (3.0-30) L 06/20/22 21:11 Urine Opiates Screen Neg (Neg) 06/20/22 21:30 Ur Methadone, Qual Neg (Neg) 06/20/22 21:30 Acetaminophen < 3 ug/ml (10-30) L 06/20/22 21:11 Urine Barbiturates Neg (Neg) 06/20/22 21:30 Ur Phencyclidine (PCP) Neg (Neg) 06/20/22 21:30 U Amphetamin/Meth Scrn Neg (Neg) 06/20/22 21:30 MDMA (Ecstasy) Screen Neg (Neg) 06/20/22 21:30 U Benzodiazepines Scrn Pos (Neg) H 06/20/22 21:30 Ur Cocaine Metabolite Neg (Neg) 06/20/22 21:30 U Marijuana (THC) Screen Neg (Neg) 06/20/22 21:30 Ethyl Alcohol mg/dL 322.0 mg/dl (<10.0) H 06/20/22 21:11 SARS-CoV-2, RNA, NAAT NEGATIVE (NEGATIVE) 06/21/22 01:15 Code Status & VTE Plan Code Status Full code VTE Prophylaxis Plan VTE Prophylaxis will be ordered: Yes PG Care Time/CCT Total # of Minutes Spent Total Time Spent with Patient: Total time spent is greater than 50% in coordination of care (as documented) at patient's floor/unit and/or counseling patient: Coding Level of Care Code 88770 Initial Inpt Care Lvl 3 Diagnoses Alcohol withdrawal F10.230 Complication of substance-induced condition: uncomplicated Alcoholic intoxication F10.929 Alcohol use disorder Depressive disorder F32.A Alcoholic hepatitis K70.10 Ascites presence: without ascites Gastritis K29.20 Chronicity: acute Gastritis bleeding: presence of bleeding unspecified Gastritis type: alcoholic Alcohol abuse F10.10 Anxiety and depression F41.9; F32.A AMS (altered mental status) R41.82 (1) Alcohol withdrawal Complication of substance-induced condition: uncomplicated Qualified Code(s): F10.230 - Alcohol dependence with withdrawal, uncomplicated (2) Alcoholic hepatitis Ascites presence: without ascites Qualified Code(s): K70.10 - Alcoholic hepatitis without ascites (3) Gastritis Chronicity: acute Gastritis bleeding: presence of bleeding unspecified Gastritis type: alcoholic Qualified Code(s): K29.20 - Alcoholic gastritis without bleeding
[2022-06-21] MEDS ORDERED: LORazepam 2 MG/1 ML VIAL ONE (02:17)
[2022-06-21] MEDS ORDERED: LORazepam 3 MG in SYRINGE 1.5 ML IV PRN (03:52)
[2022-06-21] MEDS ORDERED: ONDANSETRON INJ 2 MG/ML 2 ML VIAL IV PRN (03:52)
[2022-06-21] MEDS ORDERED: LORazepam 2 MG in SYRINGE 1 ML IV PRN (03:52)
[2022-06-21] MEDS ORDERED: Ativan IV Alcohol Withdrawal--Active Protocol IV PRN (03:52)
[2022-06-21 06:48] LABS: Basophils % (auto) 1.8 %; Eosinophils # (auto) 0.22 K/uL (0-0.50); Hematocrit (blood only) 39.1 % (40.1-51.0); Hemoglobin 13.7 g/dl (14.0-18.0); Immature Granulocytes # (auto) 0.03 K/uL (0.00-0.02); Immature Granulocytes % (auto) 0.5 %; Mean Corpuscular Hemoglobin 33.5 pg (25.0-34.0); Mean Corpuscular Volume 95.6 fL (80.0-100.0); Mean Platelet Volume 11.2 fL (9.4-12.4); Monocytes # (auto) 0.44 K/uL (0.24-0.82); Neutrophils # (auto) 2.64 K/uL (1.4-6.5); Neutrophils % (auto) 47.7 %; Platelet Count 142 K/uL (130-400); RDW Coefficient of Variation 12.6 % (11.5-14.5); Red Blood Count 4.09 M/uL (4.63-6.08); White Blood Count 5.53 K/ul (4.8-10.8)
[2022-06-21 07:32] LABS: Albumin Globulin Ratio 1.7 (0.9-2); Albumin Level 4.3 gm/dl (3.4-5.0); BUN Creatinine Ratio 7.5 (10-20); Bilirubin,Total 0.7 mg/dl (0.2-1.0); Calcium 8.6 mg/dl (8.5-10.1); Creatinine Clr Calc Pharmacy 133.8 ml/min; Globulin 2.6 gm/dl (2.5-4.0); Potassium 3.6 mmol/L (3.5-5.1); Total Protein 6.9 gm/dl (6.0-8.3)
[2022-06-21] MEDS ORDERED: GABAPENTIN 1200MG ALCOHOL WITHDRAWAL LOAD PO STA (07:44)
[2022-06-21] MEDS ORDERED: GABAPENTIN 600 MG TAB PO ONE (08:00)
[2022-06-21] MEDS: THIAMINE HCL 500 MG in SODIUM CHLORIDE 0.9% 50 ML IV SCH ×2 (08:59→16:55)
[2022-06-21] MEDS: FOLIC ACID 1 MG TAB PO SCH (08:59)
[2022-06-21] MEDS ORDERED: THIAMINE HCL 100 MG TAB PO SCH (09:00)
[2022-06-21] MEDS ORDERED: chlordiazePOXIDE HCl 25 MG CAP PO PRN (09:00)
[2022-06-21] MEDS: CEROVITE ADV FORMULA TAB PO SCH (10:17)
[2022-06-21] MEDS: chlordiazePOXIDE HCl 25 MG CAP PO PRN ×2 (12:20→22:58)
[2022-06-21] MEDS: GABAPENTIN 600 MG TAB PO SCH ×2 (13:49→20:05)
[2022-06-21] MEDS: LORazepam 1 MG in SYRINGE 0.5 ML IV PRN (14:54)
--- NOTE | 2022-06-21 23:13 | Communication Note ---
Date of Service: June 21, 2022 Saw patient today earlier on rounds. He complained of feeling a bit "foggy and confused." He also mentioned seeing "images" but had a difficult time describing them. He asked if he was under a "302." He did remember some of the events from home including the police arriving to his house, etc. He reports drinking 20-30 shots of liquor/day. VSS, afebrile gen - mildly confused, tremulous eyes - PERRL, mild nystagmus horizontally heart - RRR, s1 s2 lungs - CTA b/l abd - soft NT ND BS+, liver edge palpable neuro - tremors present ext - no edema, pulses 2+ b/l psych - denies suicidal or homicidal ideation labs reviewed including elevated ast/alt A/P: 1. alcoholism 2. alcohol intoxication at time of ER presentation --- now with alcohol withdrawal 3. alcoholic hepatitis/transaminitis 4. anxiety/depression 5. complex social issues ( with bipolar d/o, etc) 6. 302 petition completed by ER physician at ER presentation add gabapentin taper for etoh withdrawal increase thiamine to 500mg TID x 2 days, then 200mg BID thereafter cont IV fluids cont IV ativan prn for AWSS protocol change diet to gluten-free labs am add back IV fluids strongly consider psych eval due to reported h/o depression/anxiety Carlos Boggs MD
[2022-06-22] MEDS: THIAMINE HCL 500 MG in SODIUM CHLORIDE 0.9% 50 ML IV SCH ×4 (00:43→22:47)
[2022-06-22] MEDS: D5NSS + 20MEQ KCL 20 MEQ/1,000 ML BAG IV SCH ×3 (00:43→21:00)
[2022-06-22] MEDS: LORazepam 1 MG in SYRINGE 0.5 ML IV PRN (03:32)
[2022-06-22] MEDS: GABAPENTIN 600 MG TAB PO SCH ×3 (03:36→20:10)
[2022-06-22 07:12] LABS: Albumin Globulin Ratio 1.6 (0.9-2); Albumin Level 4.2 gm/dl (3.4-5.0); BUN Creatinine Ratio 13.5 (10-20); Bilirubin,Total 0.9 mg/dl (0.2-1.0); Calcium 9.2 mg/dl (8.5-10.1); Creatinine Clr Calc Pharmacy 144.6 ml/min; Est GFR (African American) 142.5 ml/min; Est GFR (Non-African American) 122.9 ml/min; Globulin 2.6 gm/dl (2.5-4.0); Magnesium 1.9 mg/dl (1.7-2.4); Potassium 3.8 mmol/L (3.5-5.1); Total Protein 6.8 gm/dl (6.0-8.3)
[2022-06-22 07:28] LABS: Hematocrit (blood only) 40.9 % (40.1-51.0); Hemoglobin 14.1 g/dl (14.0-18.0); Mean Corpuscular Hemoglobin 33.4 pg (25.0-34.0); Mean Corpuscular Hgb Conc 34.5 g/dL (32.0-36.0); Mean Corpuscular Volume 96.9 fL (80.0-100.0); Mean Platelet Volume 10.9 fL (9.4-12.4); Platelet Count 126 K/uL (130-400); RDW Coefficient of Variation 12.4 % (11.5-14.5); RDW Standard Deviation 44.1 fL (36.4-46.3); Red Blood Count 4.22 M/uL (4.63-6.08); White Blood Count 5.56 K/ul (4.8-10.8)
[2022-06-22 07:29] LABS: Basophils # (auto) 0.05 K/uL (0-0.2); Basophils % (auto) 0.9 %; Eosinophils # (auto) 0.32 K/uL (0-0.50); Eosinophils % (auto) 5.8 %; Immature Granulocytes # (auto) 0.02 K/uL (0.00-0.02); Immature Granulocytes % (auto) 0.4 %; Lymphocytes # (auto) 1.53 K/uL (1.2-3.4); Lymphocytes % (auto) 27.5 %; Monocytes # (auto) 0.42 K/uL (0.24-0.82); Monocytes % (auto) 7.6 %; Neutrophils # (auto) 3.22 K/uL (1.4-6.5); Neutrophils % (auto) 57.8 %
[2022-06-22] MEDS: FOLIC ACID 1 MG TAB PO SCH (08:20)
[2022-06-22] MEDS: CEROVITE ADV FORMULA TAB PO SCH (08:20)
--- NOTE | 2022-06-22 11:45 | Hospitalist Progress Note ---
Date of Service June 22, 2022 Assessment & Plan (1) Alcohol withdrawal: Plan: Ongoing. Alcohol level 322 upon admission. Cont Chlordiazepoxide 25 mg p.o. twice daily prn. Cont gabapentin taper. AWSS protocol with IV Ativan symptom triggered. Cont highdose thiamine 500mg IV TID until the am, then change to 200mg IV BID thereafter. cont Folic acid 1 mg p.o. daily and Multivitamin 1 p.o. daily. Patient does not wish to pursue inpatient etoh rehab options - wants outpatient AA, counseling, etc. Patient currently on 302 warrant due to having a loaded gun upon police arrival to his home and a brief skirmish related to the gun with police. Psych consult appreciated. (2) Diplopia: Plan: transient now resolved. 2nd to Wernicke's ? 2nd to small brainstem CVA? 2nd to medication side effect? 2nd to structural cranial nerve deficit? start with brain MRI. cont high-dose thiamine IV. follow for recurrent symptoms. (3) Alcoholic intoxication: Plan: presented with such. resolved -- now having etoh withdrawal. see above. (4) Alcohol use disorder: Plan: long-term issue numerous admissions for alcohol-related issues, mental health issues, etc. (5) Depressive disorder: Plan: Consult psychiatry for recs Likely to need inpatient psych treatment post medical discharge (6) Alcoholic hepatitis: Plan: slowly improving serial ast/alt (7) Gastritis: Plan: he has not had any pain for me c/w such tolerating diet (8) Alcohol abuse: Plan: see above (9) Anxiety and depression: Plan: defer Rx to psych numerous psychosocial stressors triggering his anxiety (10) AMS (altered mental status): Plan: toxic - 2nd to etoh - resolved now a/o x 3 Plan currently on 302 warrant CANNOT LEAVE AMA psych inpatient treatment post-medical discharge Admission and Anticipated Discharge Date Admission Date: June 21, 2022 Subjective patient woke this am with double vision lasted about 15 min then resolved double vision was horizontal he has never had this before denies headache or any h/o migraine since the double vision resolved his vision has been normal without visual field cuts etc feels steady on his feet we discussed his current 302 and what that means for him in the context of his 302 he mentioned that he felt "ready to go home" and that he "needed to get back to work tomorrow" 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 (1mm or so vs the left eye); EOMI however; no nystagmus; PERRL mouth - MMM neck - no JVD heart - RRR, s1 s2, no murmur lungs - CTA b/l abd - soft NT ND BS+ ext - no edema, pulses 2+ b/l neuro - strength 5/5 x 4 exts; mild tremors noted; no facial droop; speech clear psych - denies suicidal or homicidal ideation Results & Data Results & Data ([facility]) Vital Signs (Past 12 Hours) Vital Signs Temp Pulse Resp BP BP Pulse Ox O2 Del Method 06/22/22 11:36 36.5 C 98 H 18 127/85 95 Room Air 06/22/22 09:28 36.5 C 65 16 121/78 98 Room Air 06/22/22 05:29 36.5 C 64 18 125/86 97 06/22/22 02:00 36.3 C L 64 20 130/88 95 Room Air 06/22/22 00:52 36.9 C 81 18 144/104 H 98 Room Air Laboratory Results labs reviewed; BMP wnl PG Care Time/CCT Total # of Minutes Spent Total Time Spent with Patient: Total time spent is greater than 50% in coordination of care (as documented) at patient's floor/unit and/or counseling patient: Coding Level of Care Code 20759 Subseq Hosp Care Lvl 3 Diagnoses Alcohol withdrawal F10.239 Diplopia H53.2 Alcoholic intoxication F10.929 Alcohol use disorder Depressive disorder F32.A Alcoholic hepatitis K70.10 Gastritis K29.20 Chronicity: acute Gastritis bleeding: presence of bleeding unspecified Gastritis type: alcoholic Alcohol abuse F10.10 Anxiety and depression F41.9; F32.A AMS (altered mental status) R41.82 (1) Gastritis Chronicity: acute Gastritis bleeding: presence of bleeding unspecified Gastritis type: alcoholic Qualified Code(s): K29.20 - Alcoholic gastritis without bleeding
--- NOTE | 2022-06-22 12:57 | Communication Note ---
Date of Service: June 22, 2022 patient known to me from previous hospitalizations for alcohol abuse and also care of . Both have been threatening self and other during episodes of binge drinking and he typically minimizes his issues/depression. He has to this point refused inpatient rehab and aftercare options are limited due to lack of insurance. Currently on a 302 box B warrant by police as clearly engaging in SIB, intoxicated/unable to care for self, and also had loaded gun present. Unclear if any charges will be pending. Although [place] law does not allow for commitment solely due to intoxication, the patient has had repeated threats to harm self/acts of furtherance and has failed all attempts to engage in appropriate treatment. I do believe he has a mood disorder and given repeated contacts with hospital/warrants it is medically necessary that he be committed for involuntary psychiatric commitment when medically cleared, otherwise he is already minimizing this incident and discussing going back to work. continue 1 on , unable to leave hospital AMA as on 302 warrant. Anticipated inpatient psychiatric care when medically cleared. full consult to follow.
[2022-06-22] MEDS ORDERED: LORazepam 1 MG in SYRINGE 0.5 ML IV ONE (13:00)
[2022-06-22] MEDS: chlordiazePOXIDE HCl 25 MG CAP PO PRN (22:47)
[2022-06-22 23:13] LABS: 7-Aminoclonaz, Confirm NEGATIVE ng/mL (<25); Hydro-Alp Ur, GC/MS NEGATIVE ng/mL (<25); Hydroxyethylflurazepam, Conf NEGATIVE ng/mL (<50); Hydroxymidazolam Ur, GC/MS NEGATIVE ng/mL (<50); Hydroxytriazolam NEGATIVE ng/mL (<50); Lorazepam, Ur GC/MS 77 ng/mL (<50); Nordiazepam, Confirm NEGATIVE ng/mL (<50); Oxazepam Ur, GC/MS NEGATIVE ng/mL (<50); Temazepam, Confirm NEGATIVE ng/mL (<50)
[2022-06-23] MEDS: D5NSS + 20MEQ KCL 20 MEQ/1,000 ML BAG IV SCH (05:54)
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
[2022-06-23 06:46] LABS: Hematocrit (blood only) 40.1 % (40.1-51.0); Hemoglobin 13.6 g/dl (14.0-18.0); Mean Corpuscular Hemoglobin 33.5 pg (25.0-34.0); Mean Corpuscular Hgb Conc 33.9 g/dL (32.0-36.0); Mean Corpuscular Volume 98.8 fL (80.0-100.0); Mean Platelet Volume 11.2 fL (9.4-12.4); Platelet Count 127 K/uL (130-400); RDW Coefficient of Variation 12.3 % (11.5-14.5); RDW Standard Deviation 44.9 fL (36.4-46.3); Red Blood Count 4.06 M/uL (4.63-6.08); White Blood Count 6.13 K/ul (4.8-10.8)
[2022-06-23 07:03] LABS: BUN Creatinine Ratio 6.7 (10-20); Creatinine Clr Calc Pharmacy 120.3 ml/min; Est GFR (African American) 132.1 ml/min; Est GFR (Non-African American) 113.9 ml/min; Potassium 3.7 mmol/L (3.5-5.1)
[2022-06-23 07:08] LABS: Basophils # (auto) 0.04 K/uL (0-0.2); Basophils % (auto) 0.7 %; Eosinophils # (auto) 0.29 K/uL (0-0.50); Eosinophils % (auto) 4.7 %; Immature Granulocytes # (auto) 0.02 K/uL (0.00-0.02); Immature Granulocytes % (auto) 0.3 %; Lymphocytes # (auto) 1.47 K/uL (1.2-3.4); Monocytes # (auto) 0.47 K/uL (0.24-0.82); Monocytes % (auto) 7.7 %; Neutrophils # (auto) 3.84 K/uL (1.4-6.5); Neutrophils % (auto) 62.6 %
[2022-06-23] MEDS: THIAMINE HCL 200 MG in SODIUM CHLORIDE 0.9% 50 ML IV SCH ×2 (09:32→23:57)
[2022-06-23] MEDS: CEROVITE ADV FORMULA TAB PO SCH (09:32)
[2022-06-23] MEDS: FOLIC ACID 1 MG TAB PO SCH (09:32)
[2022-06-23] MEDS: GABAPENTIN 600 MG TAB PO SCH ×2 (09:32→23:55)
--- NOTE | 2022-06-23 09:51 | Magnetic Resonance Report ---
MRI OF THE BRAIN WITHOUT CONTRAST CLINICAL HISTORY: transient dipolopia; eval CVA, etc COMPARISON STUDY: Head CT June 07, 2021. TECHNIQUE: Utilizing a 1.5 Cass magnet and dedicated coil, multiplanar, multiecho imaging of the bra in was performed without IV contrast. FINDINGS: There are no foci of restricted diffusion to suggest acute infarct. No acute intracranial h emorrhage, midline shift or mass effect is present. Ventricles is unremarkable. Basal cisterns are pa tent. There are no extra-axial collections. Flow-voids for the major intracranial vessels are present . No parenchymal signal abnormality is identified. Calvarial signal is normal. Orbits are unremarkabl e on this unenhanced exam. There is no evidence for acute sinusitis. There is mild mucosal thickening of the left maxillary sinus. IMPRESSION: Unremarkable unenhanced MRI of the brain. ACT 112: Negative or not required by law. Electronically signed by: Lex Montejo M.D. 06/23/2022 9:49 AM
[2022-06-23] MEDS: chlordiazePOXIDE HCl 25 MG CAP PO PRN ×2 (11:37→23:55)
[2022-06-23] MEDS: THIAMINE HCL 500 MG in SODIUM CHLORIDE 0.9% 50 ML IV SCH (13:16)
[2022-06-23] MEDS ORDERED: OPTIRAY 300 500mL IV ONE (16:15)
--- NOTE | 2022-06-23 16:38 | CT Scan Report ---
HEAD & NECK CTA HISTORY: episode of diplopia TECHNIQUE: Multiaxial CT images of the head were performed following the intravenous administration o f contrast to evaluate the major cerebral vessels. Multiaxial CT images of the neck were also perform ed following the intravenous administration of contrast to evaluate the major cervical vessels. Maxim um intensity projection images were also obtained. A dose lowering technique was utilized adhering to the principles of ALARA. COMPARISON: Brain MRI 06/22/2022. Neck CTA 05/07/2020. FINDINGS: There is no mass, hematoma, midline shift, or acute infarct. Visualized intracranial internal carotid arteries, distal vertebral arteries, and basilar artery are widely patent. There is no significant s tenosis, occlusion, or aneurysm seen within the bilateral ACAs, MCAs, or clerical administrative assistant. The major dural venous sinuses appear patent. The aortic arch and proximal great vessels are widely patent. There is no significant stenosis, occ lusion, or dissection identified within the bilateral common carotid, internal carotid, or vertebral arteries. Calcified granuloma again noted within the left lung apex. IMPRESSION: 1. No significant stenosis, occlusion, or aneurysm within the [place]. 2. No significant stenosis, occlusion, or dissection identified within the carotid or vertebral arter ies. ACT 112: Negative or not required by law. Electronically signed by: Martinez Quarles M.D. 06/23/2022 4:36 PM
--- NOTE | 2022-06-23 16:38 | CT Scan Report ---
HEAD & NECK CTA HISTORY: episode of diplopia TECHNIQUE: Multiaxial CT images of the head were performed following the intravenous administration o f contrast to evaluate the major cerebral vessels. Multiaxial CT images of the neck were also perform ed following the intravenous administration of contrast to evaluate the major cervical vessels. Maxim um intensity projection images were also obtained. A dose lowering technique was utilized adhering to the principles of ALARA. COMPARISON: Brain MRI 06/22/2022. Neck CTA 05/07/2020. FINDINGS: There is no mass, hematoma, midline shift, or acute infarct. Visualized intracranial internal carotid arteries, distal vertebral arteries, and basilar artery are widely patent. There is no significant s tenosis, occlusion, or aneurysm seen within the bilateral ACAs, MCAs, or building and grounds supervisor. The major dural venous sinuses appear patent. The aortic arch and proximal great vessels are widely patent. There is no significant stenosis, occ lusion, or dissection identified within the bilateral common carotid, internal carotid, or vertebral arteries. Calcified granuloma again noted within the left lung apex. IMPRESSION: 1. No significant stenosis, occlusion, or aneurysm within the [place]. 2. No significant stenosis, occlusion, or dissection identified within the carotid or vertebral arter ies. ACT 112: Negative or not required by law. Electronically signed by: Martinez Quarles M.D. 06/23/2022 4:36 PM
--- NOTE | 2022-06-23 20:23 | Hospitalist Progress Note ---
Date of Service June 23, 2022 Assessment & Plan (1) Alcohol withdrawal: Plan: Improved/resolving. Alcohol level 322 upon admission. Cont Chlordiazepoxide 25 mg p.o. twice daily prn. Cont gabapentin taper. AWSS protocol with IV Ativan symptom triggered. s/p highdose thiamine 500mg IV TID; now on thiamine 200mg IV BID. cont Folic acid 1 mg p.o. daily and Multivitamin 1 p.o. daily. Patient does not wish to pursue inpatient etoh rehab options - wants outpatient AA, counseling, etc. Patient currently on 302 warrant due to having a loaded gun upon police arrival to his home and a brief skirmish related to the gun with police. Psych consult appreciated. (2) Diplopia: Plan: 06/22/22 -- lasted 15-20 minutes; transient -- resolved and has not recurred. 2nd to Wernicke's ? 2nd to medication side effect? 2nd to structural cranial nerve deficit? MRI brain neg for acute CVA or other pathology. cont high-dose thiamine IV for possible Wernicke's. follow for recurrent symptoms. send to ophtho postdischarge. (3) Alcoholic intoxication: Plan: presented with such. resolved - then developed etoh withdrawal. This, too, is resolving. see above. (4) Alcohol use disorder: Plan: long-term issue numerous admissions for alcohol-related issues, mental health issues, etc. (5) Depressive disorder: Plan: Psych consult appreciated (6) Alcoholic hepatitis: Plan: cont to improve ast/alt cont to drop (7) Gastritis: Plan: he has not had any pain this week tolerating diet (8) Alcohol abuse: Plan: see above (9) Anxiety and depression: Plan: defer Rx to psych numerous psychosocial stressors triggering his anxiety (10) AMS (altered mental status): Plan: toxic - 2nd to etoh - resolved Plan currently on 302 warrant CANNOT LEAVE AMA psych inpatient treatment post-medical discharge dc to psych on sunday ?? Admission and Anticipated Discharge Date Admission Date: June 21, 2022 Subjective no further episodes of double vision no other neurological symptoms no headache feels good eating well ambulating without ataxia he is frustrated about his 302 warrant he feels that he can go home he feels that going to the mental health unit will make him worse denies suicidal or homicidal ideation denies auditory or visual hallucinations Review of Systems Review of Systems: gen - no fevers cv - no chest pain pulm - no dyspnea GI - no diarrhea or emesis neuro - minimal tremors Physical Exam Physical Exam: gen - NAD eyes - no nystagmus mouth - MMM neck - no JVD heart - RRR, s1 s2, no murmur lungs - CTA b/l abd - soft NT ND BS+ ext - no edema, pulses 2+ b/l neuro - gait steady, not ataxic; mild tremors of arms again noted Results & Data Results & Data ([facility]) Vital Signs (Past 12 Hours) Vital Signs Temp Pulse Pulse Resp BP Pulse Ox O2 Del Method 06/23/22 17:09 59 L 06/23/22 16:25 36.8 C 66 18 137/89 99 Room Air 06/23/22 11:11 36.9 C 62 18 138/89 99 Laboratory Results Laboratory Results - last 24 hr 06/20/22 06/23/22 06/23/22 21:30 06:11 06:11 WBC 6.13 RBC 4.06 L Hgb 13.6 L Hct 40.1 MCV 98.8 MCH 33.5 MCHC 33.9 RDW Std Deviation 44.9 RDW Coeff of Bryanna 12.3 Plt Count 127 L MPV 11.2 Immature Gran % (Auto) 0.3 Neut % (Auto) 62.6 Lymph % (Auto) 24.0 [place] % (Auto) 7.7 Eos % (Auto) 4.7 Baso % (Auto) 0.7 Neut # (Auto) 3.84 Lymph # (Auto) 1.47 [place] # (Auto) 0.47 Eos # (Auto) 0.29 Baso # (Auto) 0.04 Immature Gran # (Auto) 0.02 Sodium 137 Potassium 3.7 Chloride 106 Carbon Dioxide 27 Anion Gap 4 BUN 6 Creatinine 0.89 Est Cr Clr Drug Dosing 120.3 Est GFR ( Amer) 132.1 Est GFR (Non-Af Amer) 113.9 BUN/Creatinine Ratio 6.7 L Glucose 106 H Calcium 9.0 AST 84 H ALT 91 H U OH-Alprazolam Confrm NEGATIVE 7-Amino Clonazepam NEGATIVE Ur Nordiazepam Confirm NEGATIVE U OH-ethylflurazepam NEGATIVE U Lorazepam Cnf GC/MS 77 H U Oxazepam Confm GC/MS NEGATIVE Ur Temazepam Confirm NEGATIVE U OH-Triazolam Confirm NEGATIVE U OH-Midazolam Confirm NEGATIVE Drug Screen Comment SEE NOTE Diagnostic Findings Brain MRI 06/22/22 11:44 MRI OF THE BRAIN WITHOUT CONTRAST CLINICAL HISTORY: transient dipolopia; eval CVA, etc COMPARISON STUDY: Head CT June 07, 2021. TECHNIQUE: Utilizing a 1.5 Cass magnet and dedicated coil, multiplanar, multiecho imaging of the brain was performed without IV contrast. FINDINGS: There are no foci of restricted diffusion to suggest acute infarct. No acute intracranial hemorrhage, midline shift or mass effect is present. Ventricles is unremarkable. Basal cisterns are patent. There are no extra-axial collections. Flow-voids for the major intracranial vessels are present. No p arenchymal signal abnormality is identified. Calvarial signal is normal. Orbits are unremarkable on this unenhanced exam. There is no evidence for acute sinusitis. There is mild mucosal thickening of the left maxillary sinus. IMPRESSION: Unremarkable unenhanced MRI of the brain. ACT 112: Negative or not required by law. Electronically signed by: Lex Montejo M.D. 06/23/2022 9:49 AM Head CTA 06/23/22 15:07 HEAD & NECK CTA HISTORY: episode of diplopia TECHNIQUE: Multiaxial CT images of the head were performed following the intravenous administration of contrast to evaluate the major cerebral vessels. Multiaxial CT images of the neck were also performed following the intravenous administration of contrast to evaluate the major cervical vessels. Maximum intensity projection images were also obtained. A dose lowering technique was utilized adhering to the principles of ALARA. COMPARISON: Brain MRI 06/22/2022. Neck CTA 05/07/2020. FINDINGS: There is no mass, hematoma, midline shift, or acute infarct. Visualized intracranial internal carotid arteries, distal vertebral arteries, and basilar artery are widely patent. There is no significant stenosis, occlusion, or aneurysm seen within the bilateral ACAs, MCAs, or back up worker. The major dural venous sinuses appear patent. The aortic arch and proximal great vessels are widely patent. There is no significant stenosis, occlusion, or dissection identified within the bilateral common carotid, internal carotid, or vertebral arteries. Calcified granuloma again noted within the left lung apex. IMPRESSION: 1. No significant stenosis, occlusion, or aneurysm within the [facility] [place]. 2. No significant stenosis, occlusion, or dissection identified within the carotid or vertebral arteries. ACT 112: Negative or not required by law. Electronically signed by: Martinez Quarles M.D. 06/23/2022 4:36 PM Neck CTA 06/23/22 15:07 HEAD & NECK CTA HISTORY: episode of diplopia TECHNIQUE: Multiaxial CT images of the head were performed following the intravenous administration of contrast to evaluate the major cerebral vessels. Multiaxial CT images of the neck were also performed following the intravenous administration of contrast to evaluate the major cervical vessels. Maximum intensity projection images were also obtained. A dose lowering technique was utilized adhering to the principles of ALARA. COMPARISON: Brain MRI 06/22/2022. Neck CTA 05/07/2020. FINDINGS: There is no mass, hematoma, midline shift, or acute infarct. Visualized intracranial internal carotid arteries, distal vertebral arteries, and basilar artery are widely patent. There is no significant stenosis, occlusion, or aneurysm seen within the bilateral ACAs, MCAs, or back up worker. The major dural venous sinuses appear patent. The aortic arch and proximal great vessels are widely patent. There is no significant stenosis, occlusion, or dissection identified within the bilateral common carotid, internal carotid, or vertebral arteries. Calcified granuloma again noted within the left lung apex. IMPRESSION: 1. No significant stenosis, occlusion, or aneurysm within the [facility] [place]. 2. No significant stenosis, occlusion, or dissection identified within the carotid or vertebral arteries. ACT 112: Negative or not required by law. Electronically signed by: Martinez Quarles M.D. 06/23/2022 4:36 PM PG Care Time/CCT Total # of Minutes Spent Total Time Spent with Patient: Total time spent is greater than 50% in coordination of care (as documented) at patient's floor/unit and/or counseling patient: Coding Level of Care Code 35017 Subseq Hosp Care Lvl 2 Diagnoses Alcohol withdrawal F10.239 Diplopia H53.2 Alcoholic intoxication F10.929 Alcohol use disorder Depressive disorder F32.A Alcoholic hepatitis K70.10 Gastritis K29.20 Chronicity: acute Gastritis bleeding: presence of bleeding unspecified Gastritis type: alcoholic Alcohol abuse F10.10 Anxiety and depression F41.9; F32.A AMS (altered mental status) R41.82 (1) Gastritis Chronicity: acute Gastritis bleeding: presence of bleeding unspecified Gastritis type: alcoholic Qualified Code(s): K29.20 - Alcoholic gastritis without bleeding
[2022-06-24 06:54] LABS: Creatinine Clr Calc Pharmacy 135.5 ml/min; Est GFR (African American) 138.7 ml/min; Est GFR (Non-African American) 119.7 ml/min
[2022-06-24] MEDS: CEROVITE ADV FORMULA TAB PO SCH (09:49)
[2022-06-24] MEDS: THIAMINE HCL 200 MG in SODIUM CHLORIDE 0.9% 50 ML IV SCH (09:49)
[2022-06-24] MEDS: FOLIC ACID 1 MG TAB PO SCH (09:49)
[2022-06-24] MEDS: chlordiazePOXIDE HCl 25 MG CAP PO PRN (11:49)
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
--- NOTE | 2022-06-24 15:52 | Discharge Summary ---
Date of Service date of admission - June 21, 2022 date of discharge - June 24, 2022 Admission HPI Per Admitting Provider The patient is a 32-year-old male with a past medical history including mood disorder, anxiety, depression, alcohol use disorder, alcoholic hepatitis, gastritis, hepatomegaly, and alcohol withdrawal. He reports that he began drinking again at least 3 days ago, and now feels like he has the shakes and is going through withdrawal. Principal Diagnosis 1. alcohol withdrawal 2. alcohol intoxication 3. episode of diplopia 4. mood disorder Discharge Exam gen - NAD eyes - no nystagmus, PERRL mouth - MMM neck - no JVD heart - RRR, s1 s2, no murmur lungs - CTA b/l abd - soft NT ND BS+ ext - no edema, pulses 2+ b/l neuro - gait steady, not ataxic; scant tremors of arms only; strength 5/5 x 4 exts Discharge Data Allergies Allergy/AdvReac Type Severity Reaction Status Date / Time bupropion [From Wellbutrin] AdvReac Severe anxiety, Verified 06/02/22 14:57 confussion buspirone [From BuSpar] AdvReac Intermediate Shaking/john Verified 06/02/22 14:57 mor gluten AdvReac Unknown Unknown Verified 06/02/22 14:57 milk AdvReac Unknown Unknown Verified 06/02/22 14:57 antihistamines AdvReac Intermediate "Just Uncoded 06/02/22 14:57 Don't Feel Right When I Take Them" Consultations Psychiatry Ordered Studies Brain MRI 06/22/22 11:44 MRI OF THE BRAIN WITHOUT CONTRAST CLINICAL HISTORY: transient dipolopia; eval CVA, etc COMPARISON STUDY: Head CT June 07, 2021. TECHNIQUE: Utilizing a 1.5 Cass magnet and dedicated coil, multiplanar, multiecho imaging of the brain was performed without IV contrast. FINDINGS: There are no foci of restricted diffusion to suggest acute infarct. No acute intracranial hemorrhage, midline shift or mass effect is present. Ventricles is unremarkable. Basal cisterns are patent. There are no extra-axial collections. Flow-voids for the major intracranial vessels are present. No parenchymal signal abnormality is identified. Calvarial signal is normal. Orbits are unremarkable on this unenhanced exam. There is no evidence for acute sinusitis. There is mild mucosal thickening of the left maxillary sinus. IMPRESSION: Unremarkable unenhanced MRI of the brain. ACT 112: Negative or not required by law. Electronically signed by: Lex Montejo M.D. 06/23/2022 9:49 AM Head CTA 06/23/22 15:07 HEAD & NECK CTA HISTORY: episode of diplopia TECHNIQUE: Multiaxial CT images of the head were performed following the intravenous administration of contrast to evaluate the major cerebral vessels. Multiaxial CT images of the neck were also performed following the intravenous administration of contrast to evaluate the major cervical vessels. Maximum intensity projection images were also obtained. A dose lowering technique was utilized adhering to the principles of ALARA. COMPARISON: Brain MRI 06/22/2022. Neck CTA 05/07/2020. FINDINGS: There is no mass, hematoma, midline shift, or acute infarct. Visualized intracranial internal carotid arteries, distal vertebral arteries, and basilar artery are widely patent. There is no significant stenosis, occlusion, or aneurysm seen within the bilateral ACAs, MCAs, or tobacco curer. The major dural venous sinuses appear patent. The aortic arch and proximal great vessels are widely patent. There is no significant stenosis, occlusion, or dissection identified within the bilateral common carotid, internal carotid, or vertebral arteries. Calcified granuloma again noted within the left lung apex. IMPRESSION: 1. No significant stenosis, occlusion, or aneurysm within the [place] of [place]. 2. No significant stenosis, occlusion, or dissection identified within the carotid or vertebral arteries. ACT 112: Negative or not required by law. Electronically signed by: Martinez Quarles M.D. 06/23/2022 4:36 PM Neck CTA 06/23/22 15:07 HEAD & NECK CTA HISTORY: episode of diplopia TECHNIQUE: Multiaxial CT images of the head were performed following the intravenous administration of contrast to evaluate the major cerebral vessels. Multiaxial CT images of the neck were also performed following the intravenous administration of contrast to evaluate the major cervical vessels. Maximum intensity projection images were also obtained. A dose lowering technique was utilized adhering to the principles of ALARA. COMPARISON: Brain MRI 06/22/2022. Neck CTA 05/07/2020. FINDINGS: There is no mass, hematoma, midline shift, or acute infarct. Visualized intracranial internal carotid arteries, distal vertebral arteries, and basilar artery are widely patent. There is no significant stenosis, occlusion, or aneurysm seen within the bilateral ACAs, MCAs, or tobacco curer. The major dural venous sinuses appear patent. The aortic arch and proximal great vessels are widely patent. There is no significant stenosis, occlusion, or dissection identified within the bilateral common carotid, internal carotid, or vertebral arteries. Calcified granuloma again noted within the left lung apex. IMPRESSION: 1. No significant stenosis, occlusion, or aneurysm within the [place]oh of [place]. 2. No significant stenosis, occlusion, or dissection identified within the carotid or vertebral arteries. ACT 112: Negative or not required by law. Electronically signed by: Martinez Quarles M.D. 06/23/2022 4:36 PM Hospital Course (1) Alcohol withdrawal: Alcohol level 322 upon admission. Subsequently went through alcohol withdrawal. Treated with Chlordiazepoxide, gabapentin taper, and symptom triggered ativan via AWSS protocol. He did not require ativan for about 48 hours leading up to hospital discharge. He received high-dose thiamine 500mg IV TID for 2+ days, then thiamine 200mg BID. Patient voiced that he does not wish to pursue inpatient etoh rehab options - wants outpatient AA, counseling, etc. Patient was on a 302 warrant due to having a loaded gun upon police arrival to his home and having had a brief skirmish related to the gun with police. Psychiatry was consulted who followed during his stay. Due to concomitant mood disorder in the context of the above issues he was advised to have inpatient psychiatric treatment. Thus, upon discharge from the medical floor, he was admitted directly to inpatient psychiatry. (2) Diplopia: Episode of such on 06/22/22 -- lasted only 15-20 minutes. Fully resolved and did not recur Neurological exam was normal. 2nd to Wernicke's ? 2nd to medication side effect? 2nd to structural cranial nerve deficit? MRI brain neg for acute CVA or other pathology. CTA head/neck negative. Telemetry was normal while here. He received high-dose thiamine IV for possible Wernicke's. Then, upon d/c to psychiatry, advised 200mg BID of oral thiamine for 1 additional month. He reports having had a normal eye exam just weeks prior; however, I strongly advised ophthalmology follow-up upon discharge from the psychiatric unit. (3) Alcoholic intoxication: presented with such. resolved - then developed etoh withdrawal. see #1 above. (4) Alcohol use disorder: long-term issue numerous admissions for alcohol-related issues, mental health issues, etc. (5) Depressive disorder: To be admitted directly to inpatient psychiatry after his medical discharge. (6) Alcoholic hepatitis: peak AST = 247, falling to <100 prior to discharge peak ALT = 165, falling to <100 prior to discharge other LFTs wnl recommend repeat ast/alt within 3 days for stability should continue to improve with etoh abstinence (7) Gastritis: history of such -- but he did not have any stomach pain while hospitalized tolerated diet (8) Alcohol abuse: see above (9) Anxiety and depression: defer Rx to psych numerous psychosocial stressors triggering his anxiety (10) AMS (altered mental status): toxic - 2nd to etoh - resolved Total Time Total Time Spent Total Time Spent (In Minutes): 35 Discharge Plan Discharge Items Patient Disposition: Transfer [facility] Reason For Visit: ALCOHOL WITHDRAWAL, INTOXICATION Discharge Diagnosis: 1. alcohol intoxication at time of admission 2. alcohol withdrawal - resolved 3. brief episode of double vision - resolved, has not recurred; MRI brain negative; CTA scans of head/neck - normal; eye physician follow-up needed 4. anxiety 5. elevated liver function tests - due to alcohol abuse - improving Activity: Resume your previous activity Non-emergency contact: Primary Care Provider Call non-emergency contact if: you have any medication questions and your symptoms worsen Follow-up/Referrals: Bri Cervantes MD [Primary Care Provider] - Diet: Regular Addtl Attending Provider Instructions: 1. Repeat AST and ALT in 3 days. 2. After discharge from mental health please follow-up with your eye provider/physician for repeat eye exam due to episode of double vision experienced while hospitalized. Pending Studies at Discharge: No Stand-Alone Forms: [facility] Medications and DC Order Prescriptions: New Cerovite Senior 0.4 mg-300 mcg- 250 mcg Tablet 1 tab PO QAM Qty: 30 0RF Discontinued chlordiazepoxide HCl 25 mg capsule 25 mg PO BID Qty: 60 0RF No Action fexofenadine 180 mg Tablet 180 mg PO QAM Qty: 1 0RF nicotine 7 mg/24 hr Patch 24 Hour 7 mg transdermal QAM 14 Days Qty: 14 0RF gabapentin 100 mg Capsule 100 mg PO BID PRN (Reason: anxiety) 30 Days Qty: 60 0RF gabapentin 300 mg Capsule 300 mg PO HS 30 Days Qty: 30 0RF naltrexone 50 mg Tablet 50 mg PO DAILYBB 30 Days Qty: 30 0RF Rx Instructions: take 1/2 tab (25mg) for 7 days then increase to 1 tab (50mg) once daily thiamine HCl (vitamin B1) 100 mg tablet 200 mg PO BID 30 Days Qty: 120 0RF folic acid 1 mg Tablet 1 mg PO QAM 30 Days Qty: 30 0RF Discharge Orders: Discharge Order (Routine); Ordered 06/24/22 Ordered By: Carlos Boggs Admission Data Admit Date/Time: 06/21/22 01:34 Attending Provider: Carlos Boggs Admit Provider: Reji Villavicencio Primary Care Provider: Bri Cervantes Other Providers: Reji Villavicencio ; Vita Mackey ; Angie Carrillo ; Ariana Hale Other Interventions: Discharge Summary Assessment (RN) Last Done: 06/24/22 17:45 Coding Level of Care Code D/C DAY MANAGEMENT >30 MINS Diagnoses Alcohol withdrawal F10.239 Diplopia H53.2 Alcoholic intoxication F10.929 Alcohol use disorder Depressive disorder F32.A Alcoholic hepatitis K70.10 Gastritis K29.20 Chronicity: acute Gastritis bleeding: presence of bleeding unspecified Gastritis type: alcoholic Alcohol abuse F10.10 Anxiety and depression F41.9; F32.A AMS (altered mental status) R41.82
[2022-06-24] MEDS ORDERED: GABAPENTIN 600 MG TAB PO SCH (20:00)
== END 2022-06-24 17:58 | DRG 897 ==
LOC: ED 20:58 → 2N 06-21 01:34 → SUATTDRO 06-21 01:34 → 2N 06-21 03:16

== ENCOUNTER 2022-06-24 18:00 | Inpatient (IN) ==
[~2022-06-24 18:00] MED LIST changes: -LANS15CA27 PO; -NAPR1TAB9 PO; +THIAMINE HCL 100 MG TAB PO SCH
[2022-06-24] MEDS ORDERED: hydrOXYzine HCl 25 MG TAB PO PRN ×2 (18:04)
[2022-06-24] MEDS ORDERED: ALUMINUM/MAGNESIUM SUSP 30 ML UDC PO PRN (18:04)
[2022-06-24] MEDS ORDERED: MAGNESIUM HYDROXIDE SUSP 30 ML UDC PO PRN (18:04)
[2022-06-24] MEDS ORDERED: BISMUTH SUBSALICYLATE LIQD 236 ML PO PRN (18:04)
[2022-06-24] MEDS ORDERED: ACETAMINOPHEN 325 MG TAB PO PRN (18:04)
[2022-06-24] MEDS ORDERED: SODIUM CHLORIDE 0.65% NA SOLN 45 ML (OCEAN) PRN (18:04)
[2022-06-24] MEDS ORDERED: LORazepam 1 MG TAB PO PRN (18:08)
[2022-06-25] MEDS: FOLIC ACID 1 MG TAB PO SCH ×2 (08:59→09:04)
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
[2022-06-25] MEDS: NICOTINE 7 MG/24 HR TDSY TD SCH (09:00)
[2022-06-25] MEDS ORDERED: THIAMINE HCL 100 MG TAB PO ONE (09:15)
[2022-06-25] MEDS: GABAPENTIN 100 MG CAP PO PRN (14:36)
[2022-06-25] MEDS: THIAMINE HCL 100 MG TAB PO SCH (22:16)
[2022-06-25] MEDS: GABAPENTIN 300 MG CAP PO SCH (22:16)
--- NOTE | 2022-06-26 08:44 | Psychiatric Progress Note ---
Date of Service June 26, 2022 Impression / Recommendations Impression The patient is a 32 year old with a history of trauma, BRITTNY and alcohol use who was admitted for worsening self-harm and SI. Diagnostically consistent with unspecified anxiety and depression-likely a combination of MDD, BRITTNY, PTSD as well as substance-induced depression and anxiety and alcohol use disorder. The patient is deemed unstable and requires psychiatric hospitalization for diagnostic clarification, safety and stabilization, medication management and development of further coping skills. 06/26/22: Continues to have depression and anxiety some improving insight related to the impact of his alcohol use on contributing to self-harm and suicidal rehearsal behaviors. Tolerating the gabapentin without any side effects. Ongoing motivational interviewing regarding alcohol use. (1) Post traumatic stress disorder (PTSD): (2) Alcohol use disorder, severe, dependence: (3) BRITTNY (generalized anxiety disorder): (4) Depression: (5) Self-harming behavior: Plan 06/26/22: Continue with current medications and treatment plan. Recheck LFTs tomorrow morning. Ongoing motivational interviewing. Reviewed local AA meetings and he was provided with resources on meetings he was interested in. 06/25/22: The patient was admitted to the [facility] ([facility] unit) on q15 min checks (behavioral with suicide precautions) for safety. The pa tient will participate in group, recreational, and milieu therapies and will be offered additional individual and family sessions as clinically appropriate. -Continue with thiamine 200mg BID -naltrexone once LFTs improve -gabapentin 300mg HS and gabapentin 100mg BID prn anxiety -he isn't interested in an SSRI at this time Inventory Assets Strengths: supportive siblings, working, motivated to work on relationship with his , willing to get involved with AA Needs: safety and stabilization, medication adjustment, additional coping skills, increased outpatient services Suicide Risk Level Suicide Risk Level: High-Moderate (q15 min suicide checks) Suicide Risk Level Comments: High-Moderate due to depression, SI and self-harm prior to admission but feels safe in the hospital, able to safety contract and agrees to let nursing/staff know should they develop plan, intent or feel unable to remain safe. Risk Factors Assessment Male: Yes : Yes Do You Have Access To A Gun?: Yes (guns were recently removed from home by police) Mental Health Diagnoses: Yes Substance Use Disorders: Yes Previous Attempt: No Family History of Suicide: No Previous Psychiatric Hospitalization: No Hopelessness: No Protective Factors Assessment : Yes Employed: No Stable Relationships: Yes Supportive Family: Yes Interval History Identifying Information MARYSOL RUTLEDGE is a 32-year-old M who currently lives in [place] with his , has a history of alcohol use, PTSD, BRITTNY, and was admitted on 06/24/22 18:00 on a 201 voluntary commitment for escalating self-harm and concern for SI with unsafe gun use. Chief Complaint "I'm less depressed without the alcohol". Review of Systems Sleep Information Total Hours of Sleep: 7 Meal Information Percent Meal Consumed - Breakfast: 100 Percent Meal Consumed - Lunch: 100 Percent Meal Consumed - Dinner: 100 Subjective Subjective Patient was seen & assessed and interval progress reviewed with treatment team nursing and social work. Remains uninterested in residential substance use tr eatment but motivated to try AA. Reporting his mood is "up and down". Feels less depressed without drinking alcohol. Past history of trauma and how he often falls into the caretaking role particularly with his and that when he feels anxious or overwhelmed or unable to attend to her needs he tends to drink. Reviewed that he has been drinking since about age 18 and that it became increasingly problematic after he moved to the [place] area initially drinking when he was in a good mood and later becoming reliant upon it particularly when anxious. He felt a little groggy this morning but slept very well with the gabapentin and denies any other side effects. He found the gabapentin yesterday very helpful for his anxiety. He denies any thoughts of suicide today. Physical Exam Psychiatric Orientation: alert and oriented x 3 Apperance: appropriately dressed and appropriately groomed Eye Contact: good eye contact Motor Behavior: no abnormal motor movements Speech: normal rate/rhythm/volume of speech Affect: + anxious affect Mood: + depressed mood and + anxious mood Thought Process: + circumstantial thought process Thought Content: reality based without delusions Suicidal Thoughts: denies suicidal thoughts, denies suicidal plan and denies suicidal intent Homicidal Thoughts: denies homicidal thoughts Hallucinations: no auditory hallucinations and no visual hallucinations Cognition: recent memory grossly intact, remote memory grossly intact, attention grossly intact and language grossly intact Estimated Intelligence: consistent with education level Insight: + poor insight Judgement: + limited judgement Vital Signs (Past 24 Hours) Last Vital Signs Temp 36.6 C 06/26/22 06:00 Pulse 75 06/26/22 06:32 Resp 18 06/26/22 06:00 BP 103/71 06/26/22 06:32 Pulse Ox 98 06/25/22 18:20 O2 Del Method 06/25/22 18:20 Results & Data ([facility]) Current Inpatient Medications Current Inpatient Medications: Current Inpatient Medications Acetaminophen (Acetaminophen 325 Mg Tab) 650 mg PO Q4H PRN PRN Reason: Headache or Minor Fever Stop: 07/24/22 18:03 Al Hydrox/Mg Hydrox/Simethicone (Aluminum/Magnesium Susp 30 Ml Udc) 30 ml PO Q4H PRN PRN Reason: GI Upset Stop: 07/24/22 18:03 Bismuth Subsalicylate (Bismuth Subsalicylate Liqd 236 Ml) 15 ml PO PRN PRN PRN Reason: Loose Stool Stop: 07/24/22 18:03 Fexofenadine HCl (Fexofenadine Hcl 180 Mg Tab) 180 mg PO QAM XIOMY Stop: 07/26/22 08:59 Folic Acid (Folic Acid 1 Mg Tab) 1 mg PO QAM XIOMY Stop: 07/24/22 08:59 Last Admin: 06/25/22 09:04 Dose: Not Given Gabapentin (Gabapentin 300 Mg Cap) 300 mg PO HS XIOMY Stop: 07/25/22 21:59 Last Admin: 06/25/22 22:16 Dose: 300 mg Gabapentin (Gabapentin 100 Mg Cap) 100 mg PO BID PRN PRN Reason: Anxiety Stop: 07/25/22 20:59 Last Admin: 06/25/22 14:36 Dose: 100 mg Hydroxyzine HCl (Hydroxyzine Hcl 25 Mg Tab) 50 mg PO HSZ PRN PRN Reason: Insomnia Stop: 07/24/22 18:03 Hydroxyzine HCl (Hydroxyzine Hcl 25 Mg Tab) 25 mg PO Q4H PRN PRN Reason: Anxiety Stop: 07/24/22 18:03 Lorazepam (Lorazepam 1 Mg Tab) 1 mg PO ONE PRN; Protocol PRN Reason: EtoH Withdrawal AWSS 6,7,8,9,10 Magnesium Hydroxide (Magnesium Hydroxide Susp 30 Ml Udc) 30 ml PO DAILY PRN PRN Reason: Constipation Stop: 07/24/22 18:03 Miscellaneous (Remove Nicoderm Patch) 1 each N/A DAILY@0859 [facility] Stop: 07/26/22 08:58 Nicotine (Nicotine 7 Mg/24 Hr Tdsy) 7 mg TD QAM [facility] Stop: 07/25/22 08:59 Last Admin: 06/25/22 09:00 Dose: 7 mg Sodium Chloride (Sodium Chloride 0.65% Na Soln 45 Ml ([place])) 1 - 2 sprays NA PRN PRN PRN Reason: Nasal Dryness/Congestion Stop: 07/24/22 18:03 Thiamine HCl (Thiamine Hcl 100 Mg Tab) 200 mg PO BID [facility] Stop: 07/25/22 20:59 Last Admin: 06/25/22 22:16 Dose: 200 mg Post Discharge Appointments Primary Care Physician Name Of Family Doctor: Dr Diaz, [facility]
[2022-06-26] MEDS: NICOTINE 7 MG/24 HR TDSY TD SCH (09:23)
[2022-06-26] MEDS: FOLIC ACID 1 MG TAB PO SCH (09:23)
[2022-06-26] MEDS: THIAMINE HCL 100 MG TAB PO SCH ×2 (09:23→21:19)
[2022-06-26] MEDS: FEXOFENADINE HCL 180 MG TAB PO SCH (09:23)
[2022-06-26] MEDS: GABAPENTIN 300 MG CAP PO SCH (21:19)
[2022-06-27] MEDS: FOLIC ACID 1 MG TAB PO SCH (08:22)
[2022-06-27] MEDS: FEXOFENADINE HCL 180 MG TAB PO SCH (08:22)
[2022-06-27 08:25] LABS: Alanine Aminotransferase 83 U/L (7-52); Aspartate Aminotransferase 55 U/L (13-39)
[2022-06-27] MEDS: NICOTINE 7 MG/24 HR TDSY TD SCH (08:27)
[2022-06-27] MEDS: THIAMINE HCL 100 MG TAB PO SCH ×2 (08:28→21:12)
[2022-06-27] MEDS: GABAPENTIN 100 MG CAP PO PRN ×2 (10:48→17:21)
--- NOTE | 2022-06-27 14:08 | Psychiatric Progress Note ---
Date of Service June 27, 2022 Impression / Recommendations Impression The patient is a 32 year old with a history of trauma, BRITTNY and alcohol use who was admitted for worsening self-harm and SI. Diagnostically consistent with unspecified anxiety and depression-likely a combination of MDD, BRITTNY, PTSD as well as substance-induced depression and anxiety and alcohol use disorder. The patient is deemed unstable and requires psychiatric hospitalization for diagnostic clarification, safety and stabilization, medication management and development of further coping skills. 06/27/22: Ongoing anxiety and depression. Reviewed labwork and AST and ALT remain elevated but are trending down and improving. Discussed risks, benefits and alternatives regarding naltrexone. Patient would like to start and consented to naltrexone for alcohol use disorder. Reviewed side effects including but not limited to: GI side effects, liver damage/need for regular AST/ALT monitoring and reviewed that felt to be safe to take as long as levels are less than 3 times outside the normal range. (1) Post traumatic stress disorder (PTSD): (2) Alcohol use disorder, severe, dependence: (3) BRITTNY (generalized anxiety disorder): (4) Depression: (5) Self-harming behavior: Plan 06/27/22: Start naltrexone 25mg qd with breakfast tomorrow. Continue with current medications and tx plan. Needs family meeting. 06/26/22: Continue with current medications and treatment plan. Recheck LFTs tomorrow morning. Ongoing motivational interviewing. Reviewed local AA meetings and he was provided with resources on meetings he was interested in. 06/25/22: The patient was admitted to the [facility] ([facility] health unit) on q15 min checks (behavioral with suicide precautions) for safety. The patient will participate in group, recreational, and milieu therapies and will be offered additional individual and family sessions as clinically appropriate. -Continue with thiamine 200mg BID -naltrexone once LFTs improve -gabapentin 300mg HS and gabapentin 100mg BID prn anxiety -he isn't interested in an SSRI at this time Inventory Assets Strengths: supportive siblings, working, motivated to work on relationship with his , willing to get involved with AA Needs: safety and stabilization, medication adjustment, additional coping skills, increased outpatient services Suicide Risk Level Suicide Risk Level: High-Moderate (q15 min suicide checks) Suicide Risk Level Comments: High-Moderate due to depression, SI and self-harm prior to admission but feels safe in the hospital, able to safety contract and agrees to let nursing/staff know should they develop plan, intent or feel unable to remain safe. Risk Factors Assessment Male: Yes : Yes Do You Have Access To A Gun?: Yes (guns were recently removed from home by police) Mental Health Diagnoses: Yes Substance Use Disorders: Yes Previous Attempt: No Family History of Suicide: No Previous Psychiatric Hospitalization: No Hopelessness: No Protective Factors Assessment : Yes Employed: No Stable Relationships: Yes Supportive Family: Yes Interval History Identifying Information MARYSOL RUTLEDGE is a 32-year-old M who currently lives in [place] with his , has a history of alcohol use, PTSD, BRITTNY, and was admitted on 06/24/22 18:00 on a 201 voluntary commitment for escalating self-harm and concern for SI with unsafe gun use. Chief Complaint "I feel a little jittery after having caffeine". Review of Systems Sleep Information Total Hours of Sleep: 7 Meal Information Percent Meal Consumed - Breakfast: 90 Percent Meal Consumed - Lunch: 100 Percent Meal Consumed - Dinner: 100 Subjective Subjective Patient was seen & assessed and interval progress reviewed with treatment team nursing and social work. Feels his mood is improving. Anxiety comes and goes, a little worse today after he had coffee and he's very nervous about impact of being hospitalized on him not being able to work and eager to return to this. Reviewed labwork results. He denies any side effects from gabapentin. Physical Exam Psychiatric Orientation: alert and oriented x 3 Apperance: appropriately dressed and appropriately groomed Eye Contact: good eye contact Motor Behavior: no abnormal motor movements Speech: normal rate/rhythm/volume of speech Affect: + anxious affect and + constricted affect Mood: + depressed mood and + anxious mood Thought Process: + circumstantial thought process Thought Content: reality based without delusions Suicidal Thoughts: denies suicidal thoughts Homicidal Thoughts: denies homicidal thoughts Hallucinations: no auditory hallucinations and no visual hallucinations Cognition: recent memory grossly intact, remote memory grossly intact, attention grossly intact and language grossly intact Estimated Intelligence: consistent with education level Insight: + poor insight Judgement: + limited judgement Vital Signs (Past 24 Hours) Last Vital Signs Temp 36.4 C L 06/27/22 06:33 Pulse 75 06/27/22 06:34 Resp 16 06/27/22 06:33 BP 106/73 06/27/22 06:34 Pulse Ox 98 06/25/22 18:20 O2 Del Method 06/25/22 18:20 Results & Data ([facility]) Laboratory Results Laboratory Results - last 24 hr 06/27/22 07:45 AST 55 H ALT 83 H Current Inpatient Medications Current Inpatient Medications: Current Inpatient Medications Acetaminophen (Acetaminophen 325 Mg Tab) 650 mg PO Q4H PRN PRN Reason: Headache or Minor Fever Stop: 07/24/22 18:03 Al Hydrox/Mg Hydrox/Simethicone (Aluminum/Magnesium Susp 30 Ml Udc) 30 ml PO Q4H PRN PRN Reason: GI Upset Stop: 07/24/22 18:03 Bismuth Subsalicylate (Bismuth Subsalicylate Liqd 236 Ml) 15 ml PO PRN PRN PRN Reason: Loose Stool Stop: 07/24/22 18:03 Fexofenadine HCl (Fexofenadine Hcl 180 Mg Tab) 180 mg PO QAM [facility] Stop: 07/26/22 08:59 Last Admin: 06/27/22 08:22 Dose: 180 mg Folic Acid (Folic Acid 1 Mg Tab) 1 mg PO QAM [facility]OM[facility] Stop: 07/24/22 08:59 Last Admin: 06/27/22 08:22 Dose: 1 mg Gabapentin (Gabapentin 300 Mg Cap) 300 mg PO HS [facility] Stop: 07/25/22 21:59 Last Admin: 06/26/22 21:19 Dose: 300 mg Gabapentin (Gabapentin 100 Mg Cap) 100 mg PO BID PRN PRN Reason: Anxiety Stop: 07/25/22 20:59 Last Admin: 06/27/22 10:48 Dose: 100 mg Hydroxyzine HCl (Hydroxyzine Hcl 25 Mg Tab) 50 mg PO HSZ PRN PRN Reason: Insomnia Stop: 07/24/22 18:03 Hydroxyzine HCl (Hydroxyzine Hcl 25 Mg Tab) 25 mg PO Q4H PRN PRN Reason: Anxiety Stop: 07/24/22 18:03 Lorazepam (Lorazepam 1 Mg Tab) 1 mg PO ONE PRN; Protocol PRN Reason: EtoH Withdrawal AWSS 6,7,8,9,10 Magnesium Hydroxide (Magnesium Hydroxide Susp 30 Ml Udc) 30 ml PO DAILY PRN PRN Reason: Constipation Stop: 07/24/22 18:03 Miscellaneous (Remove Nicoderm Patch) 1 each N/A DAILY@0859 [facility] Stop: 07/26/22 08:58 Last Admin: 06/27/22 08:28 Dose: Not Given Nicotine (Nicotine 7 Mg/24 Hr Tdsy) 7 mg TD QAM [facility] Stop: 07/25/22 08:59 Last Admin: 06/27/22 08:27 Dose: 7 mg Sodium Chloride (Sodium Chloride 0.65% Na Soln 45 Ml ([place])) 1 - 2 sprays NA PRN PRN PRN Reason: Nasal Dryness/Congestion Stop: 07/24/22 18:03 Thiamine HCl (Thiamine Hcl 100 Mg Tab) 200 mg PO BID [facility] Stop: 07/25/22 20:59 Last Admin: 06/27/22 08:28 Dose: 200 mg Post Discharge Appointments Primary Care Physician Name Of Family Doctor: Dr Diaz, [facility]
[2022-06-27] MEDS: GABAPENTIN 300 MG CAP PO SCH (21:12)
[2022-06-28] MEDS: FEXOFENADINE HCL 180 MG TAB PO SCH (08:26)
[2022-06-28] MEDS: NALTREXONE HCL 50 MG TAB PO SCH (08:26)
[2022-06-28] MEDS: NICOTINE 7 MG/24 HR TDSY TD SCH (08:26)
[2022-06-28] MEDS: FOLIC ACID 1 MG TAB PO SCH (08:26)
[2022-06-28] MEDS: THIAMINE HCL 100 MG TAB PO SCH ×2 (08:26→21:56)
--- NOTE | 2022-06-28 16:27 | Psychiatric Progress Note ---
Date of Service June 28, 2022 Impression / Recommendations Impression The patient is a 32 year old with a history of trauma, BRITTNY and alcohol use who was admitted for worsening self-harm and SI. Diagnostically consistent with unspecified anxiety and depression-likely a combination of MDD, BRITTNY, PTSD as well as substance-induced depression and anxiety and alcohol use disorder. The patient is deemed unstable and requires psychiatric hospitalization for diagnostic clarification, safety and stabilization, medication management and development of further coping skills. 06/28/22: Showing steady improvement, still with some anxiety, depression lessening. No SI. Sleep improving and tolerating naltrexone initiation. Continues to find gabapentin helpful for anxiety. had family meeting. (1) Post traumatic stress disorder (PTSD): (2) Alcohol use disorder, severe, dependence: (3) BRITTNY (generalized anxiety disorder): (4) Depression: (5) Self-harming behavior: Plan 06/28/22: Continue current medication and tx plan. Had family meeting. Slowly showing some improvements in insight, family to work on safety planning at the home by removing sharps and taking away any leftover alcohol/broken bottles. 06/27/22: Start naltrexone 25mg qd with breakfast tomorrow. Continue with current medications and tx plan. Needs family meeting. 06/26/22: Continue with current medications and treatment plan. Recheck LFTs tomorrow morning. Ongoing motivational interviewing. Reviewed local AA meetings and he was provided with resources on meetings he was interested in. 06/25/22: The patient was admitted to the [facility] ([facility] unit) on q15 min checks (behavioral with suicide precautions) for safety. The patient will participate in group, recreational, and milieu therapies and will be offered additional individual and family sessions as clinically appropriate. -Continue with thiamine 200mg BID -naltrexone once LFTs improve -gabapentin 300mg HS and gabapentin 100mg BID prn anxiety -he isn't interested in an SSRI at this time Inventory Assets Strengths: supportive siblings, working, motivated to work on relationship with his , willing to get involved with AA Needs: safety and stabilization, medication adjustment, additional coping skills, increased outpatient services Suicide Risk Level Suicide Risk Level: High-Moderate (q15 min suicide checks) Suicide Risk Level Comments: High-Moderate due to depression, SI and self-harm prior to admission but feels safe in the hospital, able to safety contract and agrees to let nursing/staff know should they develop plan, intent or feel unable to remain safe. Risk Factors Assessment Male: Yes : Yes Do You Have Access To A Gun?: Yes (guns were recently removed from home by police) Mental Health Diagnoses: Yes Substance Use Disorders: Yes Previous Attempt: No Family History of Suicide: No Previous Psychiatric Hospitalization: No Hopelessness: No Protective Factors Assessment : Yes Employed: No Stable Relationships: Yes Supportive Family: Yes Interval History Identifying Information MARYSOL RUTLEDGE is a 32-year-old M who currently lives in [place] with his , has a history of alcohol use, PTSD, BRITTNY, and was admitted on 06/24/22 18:00 on a 201 voluntary commitment for escalating self-harm and concern for SI with unsafe gun use. Chief Complaint "I'm good". Review of Systems Sleep Information Total Hours of Sleep: 6.5 Meal Information Percent Meal Consumed - Breakfast: 90 Percent Meal Consumed - Lunch: 90 Percent Meal Consumed - Dinner: 100 Subjective Subjective Patient was seen & assessed and interval progress reviewed with treatment team nursing and social work. Started naltrexone and denies any side effects. Hopeful this will help him manage to avoid alcohol use. Plans to attend at least two AA meetings per week with stretch goal of 3. Had his family meeting with his sister. Continues to find gabapentin helpful for anxiety. Physical Exam Psychiatric Orientation: alert and oriented x 3 Apperance: appropriately dressed and appropriately groomed Eye Contact: good eye contact Motor Behavior: no abnormal motor movements Speech: normal rate/rhythm/volume of speech Affect: + anxious affect Mood: + anxious mood Thought Process: goal directed thought process Thought Content: reality based without delusions Suicidal Thoughts: denies suicidal thoughts Homicidal Thoughts: denies homicidal thoughts Hallucinations: no auditory hallucinations and no visual hallucinations Cognition: recent memory grossly intact, remote memory grossly intact, attention grossly intact and language grossly intact Estimated Intelligence: consistent with education level Insight: + poor insight Judgement: + fair judgement Vital Signs (Past 24 Hours) Last Vital Signs Temp 36.5 C 06/28/22 06:32 Pulse 84 06/28/22 06:32 Resp 16 06/28/22 06:32 BP 106/64 06/28/22 06:32 Pulse Ox 98 06/25/22 18:20 O2 Del Method 06/25/22 18:20 Results & Data ([facility]) Current Inpatient Medications Current Inpatient Medications: Current Inpatient Medications Acetaminophen (Acetaminophen 325 Mg Tab) 650 mg PO Q4H PRN PRN Reason: Headache or Minor Fever Stop: 07/24/22 18:03 Al Hydrox/Mg Hydrox/Simethicone (Aluminum/Magnesium Susp 30 Ml Udc) 30 ml PO Q4H PRN PRN Reason: GI Upset Stop: 07/24/22 18:03 Bismuth Subsalicylate (Bismuth Subsalicylate Liqd 236 Ml) 15 ml PO PRN PRN PRN Reason: Loose Stool Stop: 07/24/22 18:03 Fexofenadine HCl (Fexofenadine Hcl 180 Mg Tab) 180 mg PO QAM [facility] Stop: 07/26/22 08:59 Last Admin: 06/28/22 08:26 Dose: 180 mg Folic Acid (Folic Acid 1 Mg Tab) 1 mg PO QAM [facility] Stop: 07/24/22 08:59 Last Admin: 06/28/22 08:26 Dose: 1 mg Gabapentin (Gabapentin 300 Mg Cap) 300 mg PO HS [facility] Stop: 07/25/22 21:59 Last Admin: 06/27/22 21:12 Dose: 300 mg Gabapentin (Gabapentin 100 Mg Cap) 100 mg PO BID PRN PRN Reason: Anxiety Stop: 07/25/22 20:59 Last Admin: 06/27/22 17:21 Dose: 100 mg Hydroxyzine HCl (Hydroxyzine Hcl 25 Mg Tab) 50 mg PO HSZ PRN PRN Reason: Insomnia Stop: 07/24/22 18:03 Hydroxyzine HCl (Hydroxyzine Hcl 25 Mg Tab) 25 mg PO Q4H PRN PRN Reason: Anxiety Stop: 07/24/22 18:03 Lorazepam (Lorazepam 1 Mg Tab) 1 mg PO ONE PRN; Protocol PRN Reason: EtoH Withdrawal AWSS 6,7,8,9,10 Magnesium Hydroxide (Magnesium Hydroxide Susp 30 Ml Udc) 30 ml PO DAILY PRN PRN Reason: Constipation Stop: 07/24/22 18:03 Miscellaneous (Remove Nicoderm Patch) 1 each N/A DAILY@0859 [facility] Stop: 07/26/22 08:58 Last Admin: 06/28/22 08:26 Dose: 1 each Naltrexone HCl (Naltrexone Hcl 50 Mg Tab) 25 mg PO DAILYBB [facility] Stop: 07/28/22 07:59 Last Admin: 06/28/22 08:26 Dose: 25 mg Nicotine (Nicotine 7 Mg/24 Hr Tdsy) 7 mg TD QAM [facility] Stop: 07/25/22 08:59 Last Admin: 06/28/22 08:26 Dose: 7 mg Sodium Chloride (Sodium Chloride 0.65% Na Soln 45 Ml ([place])) 1 - 2 sprays NA PRN PRN PRN Reason: Nasal Dryness/Congestion Stop: 07/24/22 18:03 Thiamine HCl (Thiamine Hcl 100 Mg Tab) 200 mg PO BID [facility] Stop: 07/25/22 20:59 Last Admin: 06/28/22 08:26 Dose: 200 mg Mental Health & Subst Abuse Tx Psychiatrist Name of Psychiatrist: [facility] Psych[facility]rist's Date of Appointment with Psychiatrist: 07/19/22 Time of Appointment with Psychiatrist: 8:15 AM Psychiatric Appointment Comment: [address] [facility], [place] [address] Therapist Name of Therapist: Robyn Sarkar Therapist's Date of Therapist Appointment: 07/04/22 Time of Therapist Appointment: 1:30 PM Therapy Appointment Comment: [address] [facility], [address], [place] [address] Post Discharge Appointments Primary Care Physician Name Of Family Doctor: [facility] - Dr. Cervantes [facility] Date of Appointment with PCP: 07/06/22 Time of Appointment with PCP: 10:20 AM Provider Appointment Comment: [facility], [address], [place] [address] Contact Information Discharge Discharge Address: [address] [place] [id number]
[2022-06-28] MEDS: GABAPENTIN 100 MG CAP PO PRN (19:09)
[2022-06-28] MEDS: GABAPENTIN 300 MG CAP PO SCH (21:56)
[2022-06-29] MEDS: NICOTINE 7 MG/24 HR TDSY TD SCH (08:46)
[2022-06-29] MEDS: NALTREXONE HCL 50 MG TAB PO SCH (08:46)
[2022-06-29] MEDS: FEXOFENADINE HCL 180 MG TAB PO SCH (08:47)
[2022-06-29] MEDS: THIAMINE HCL 100 MG TAB PO SCH (08:47)
[2022-06-29] MEDS: FOLIC ACID 1 MG TAB PO SCH (08:47)
[2022-06-29] MEDS ORDERED: DESTROY THIS MEDICATION ONE (09:49)
[2022-06-29] MEDS: GABAPENTIN 100 MG CAP PO PRN (09:50)
--- NOTE | 2022-06-29 09:53 | Discharge Summary ---
Date of Service June 29, 2022 History of Present Illness He presents for psychiatric admission after concern for escalating self-harm, increasing alcohol use and unsafe behaviors with his guns at home with SI related rehearsal behaviors/interrupted attempt. Chun was brought to the ED on 06/20/22, one day after being seen in the ED and discharged for self-harm while intoxicated, via police who completed a 302 box B warrant as he was observed with "dried blood and cutting tripathi" on his arms and torso as well as finding a bullet on the floor and concern that he had told a sibling he would "kill police" when they arrived to the home. Addition information per Dr. Carrillo's initial consult while Chun was on the medical floor for supervised medical withdrawal from alcohol from 06/23/2022: "Today Chun recounts that his has been staying with her brother to most of the week but got out of routine when they went out of town. He states that the gun had been out of the house for 11 months and that he was prepping it for sale and vaguely remembers dry firing it into the floor as typical to ensure unloaded as otherwise no safety on the gun. He denies trying to hurt himself. He has several superficial scratches/cuts on left forearm and abdomen. He reports wanting to get back to work and doesn't understand recommendation for inpatient treatment as "I wasn't trying to hurt myself and the gun is gone." Reviewed concerns about escalation in disorganized self-harm behaviors and concern for mood disorder. He continues to state he doesn't want rehab. Reviewed his rights as currently on 302 warrant by police pending medical clearance and 201 vs. 302 thereafter. He was thankful for the discussion yet continued to deny need for inpatient treatment. As per initial consult review/discussion with Dr. Boggs: patient known to me from previous hospitalizations for alcohol abuse and also care of . Both have been threatening self and other during episodes of binge drinking and he typically minimizes his issues/depression. He has to this point refused inpatient rehab and aftercare options are limited due to lack of insurance. Currently on a 302 box B warrant by police as clearly engaging in SIB, intoxicated/unable to care for self, and also had loaded gun present. Unclear if any charges will be pending." Currently Chun continues to minimize the events leading to his hospitalization. He feels many of his challenges with anxiety and alcohol use are due to his 's struggles with bipolar disorder and mood cycles. He had been sober for about 2.5 weeks up until 1.5 weeks ago when he relapsed. He feels he gets more depressed when his is at home more and he drinks more and then she also joins him drinking. He's been drinking up to 16 shots of liquor per day//5th liquor per day and finds he often drinks to cope with anxiety and trauma symptoms. He notes then he starts to withdraw anytime he's not drinking. He notes he wasn't eating much and wonders if it was due to taking Kratum. He states he had hardly been eating within the 7 days prior to hospital admission. He notes he is the one who buys the alcohol and brings it into the home. He is not currently taking any psychiatric medications. He denies any depression symptoms. He feels anxious about missing work and financial impact of this. He endorses some PTSD symptoms of hypervigilance and decreased sleep/night terrors after starting Kratum. He denies any flashbacks. Psychiatric ROS notable for no current nor history of symptoms of leigh ann, psychosis, OCD nor eating disorder. Physical Exam Vital Signs (Past 24 Hours) Last Vital Signs Temp 36.3 C L 06/29/22 08:07 Pulse 81 06/29/22 08:07 Resp 18 06/29/22 08:07 BP 106/72 06/29/22 08:07 Pulse Ox 98 06/29/22 08:07 O2 Del Method 06/25/22 18:20 See admission H&P and DOD summary. Principal Diagnosis Post Traumatic Stress Disorder, Major Depressive Disorder, Alcohol Use Disorder Psychiatric Data See daily stay summary. In short, patient was engaged with the social/therapeutic milieu of the unit, safety was maintained and the patient was cooperative with care. Medication changes included initiation of gabapentin for alcohol use disorder and anxiety as well as naltrexone for alcohol use disorder and they tolerated this well; he was also continued on thiamine 200mg BID and folic acid which were started during his medical admission with recommendation to continue for one month. He plans to follow-up with ophthalmology after discharge given complaints of diplopia while medically admitted. His AST and ALT should be followed by his PCP, they were trending down during his medical and psychiatric admission but should be rechecked in a few weeks to ensure no worsening with initiation of naltrexone. Reviewed importance of routine liver function monitoring while on naltrexone which he understands. He was not interested in starting any other medications for anxiety, PTSD nor his mood but in the future an SSRI could be considered if these symptoms worsened or he became interested in this. A family session was held and safety plan was completed prior to discharge. His gun is currently with [employer] [facility] who will continue to hold onto his gun and then in a few days he's going to go pick it with his friend Alexei who he's going to gift the gun to so that he has no guns in his home. He remains motivated to avoid alcohol use after discharge and plans to attend an AA meeting later this evening or tomorrow and to ask to get connected with a sponsor. He actively participated in safety planning and in discussions about ways to seek support and recognizing warning signs and utilizing coping skills. Reviewed mobile apps that could be used for additional ways to have their safety plan and contacts easily available should thoughts of SI re-emerge in the future. Reviewed importance of seeking emergency care should SI intensify, worsen or should they feel unsafe in the future which they agree to do. On the day of discharge he stated his mood was "a little nervous and excited to go home" and remained future-oriented including getting back to work, seeing his dog, seeing his and family and engaging in aftercare appointments for psychiatry, therapy, primary care and attending AA. Day of Discharge Assessment Today the patient voices readiness for discharge. They note improvement in mood and anxiety. They deny thoughts of harm to self or others. Thoughts are organized and they are clinically improved from admission. There is no evidence of psychosis. They improved in the hospital with support and medication adjustments. They agree to take medications as prescribed, avoid alcohol use and keep follow-up appointments. At the time of the discharge they are deemed to be stable and appropriate for outpatient level of care. They are not deemed to be at imminent risk of harm to self or others. They are aware of emergency and crisis services. Knows to call 911 or go to nearest emergency care center if in a crisis which cannot be handled as an outpatient. Transition of Care Transition Of Care Record: was reviewed with the patient Advance Directives Advance Directives Information Provided: Yes Advance Directives: No Mental Health Advance Directive: No Advance Directives on File: No Living Will: No Power of Raw Material Handler: No Advance Directives Reason:: Declines as Mental Health Visit. Suicide Risk Level Suicide Risk Level Comments: Acute risk is low given improvement in mood and denial of SI, lack of access to lethal means, plan to avoid substance use, improvement in sleep, hopefulness. Ch ronic risk is moderate to high given multiple non-modifiable risk factors including psychiatric co-morbid diagnoses, periods of impulsivity, hx self-harm, emotional reactivity but also with protective factors. Counseled on ways to reduce acute and chronic risk including avoiding alcohol use, engaging with outpatient providers, using safety plan if needed, utilizing supports, taking medication, and using coping skills. Modifiable risk factors of SI, anxiety and depression were addressed during hospitalization through development of new coping skills, family meeting, safety planning, and medication adjustments. Reviewed that most significant modifiable risk factor for reducing acute and chronic risk is to avoid alcohol use, he continues to decline residential or IOP referrals but will be doing outpatient dual diagnosis therapy, taking naltrexone and plans to attend AA meetings. Risk Factors Assessment Male: Yes : Yes Do You Have Access To A Gun?: No (gunsremoved from home by police, he will give to his friend Alexei) Mental Health Diagnoses: Yes Substance Use Disorders: Yes Previous Attempt: No Family History of Suicide: No Previous Psychiatric Hospitalization: No Hopelessness: No Protective Factors Assessment Christianity Beliefs: Yes : Yes Employed: No Stable Relationships: Yes Supportive Family: Yes Tobacco Cessation at Discharge Tobacco Cessation Medication Prescribed at Discharge: Offered & Prescribed (quit line referral faxed) Discharge Data Lab Results 06/27/22 07:45 AST 55 H ALT 83 H Hospital Course (1) Post traumatic stress disorder (PTSD): (2) Alcohol use disorder, severe, dependence: (3) BRITTNY (generalized anxiety disorder): (4) Depression: (5) Self-harming behavior: (6) Major depressive disorder, recurrent episode: (7) Elevated liver enzymes: Has follow-up with his PCP Plan 06/28/22: Continue current medication and tx plan. Had family meeting. Slowly showing some improvements in insight, family to work on safety planning at the home by removing sharps and taking away any leftover alcohol/broken bottles. 06/27/22: Start naltrexone 25mg qd with breakfast tomorrow. Continue with current medications and tx plan. Needs family meeting. 06/26/22: Continue with current medications and treatment plan. Recheck LFTs tomorrow morning. Ongoing motivational interviewing. Reviewed local AA meetings and he was provided with resources on meetings he was interested in. 06/25/22: The patient was admitted to the [facility] ([facility] mental health unit) on q15 min checks (behavioral with suicide precautions) for safety. The patient will participate in group, recreational, and milieu therapies and will be offered additional individual and family sessions as clinically appropriate. -Continue with thiamine 200mg BID -naltrexone once LFTs improve -gabapentin 300mg HS and gabapentin 100mg BID prn anxiety -he isn't interested in an SSRI at this time Mental Health & Subst Abuse Tx Psychiatrist Name of Psychiatrist: [facility] Date of Appointment with Psychiatrist: 07/19/22 Time of Appointment with Psychiatrist: 8:15 AM Psychiatric Appointment Comment: [facility], [place] [address] Therapist Name of Therapist: Robyn Sarkar Therapist's Date of Therapist Appointment: 07/04/22 Time of Therapist Appointment: 1:30 PM Therapy Appointment Comment: [address] [facility], [address], [place] [address] Post Discharge Appointments Primary Care Physician Name Of Family Doctor: [facility] - Dr. Cervantes [facility] Date of Appointment with PCP: 07/06/22 Time of Appointment with PCP: 10:20 AM Provider Appointment Comment: [address] [facility], [address], [facility] [address] Smoking Cessation Counseling Tobacco Cessation Medication Prescribed at Discharge: Offered & Prescribed (quit line referral faxed) Contact Information Discharge Discharge Address: [address] [place] [id number] Discharge Plan Discharge Items Patient Disposition: Home - Self-Care Reason For Visit: MDD Discharge Diagnosis: Post Traumatic Stress Disorder, Major Depressive Disorder, Alcohol Use Disorder Activity: Resume your previous activity Non-emergency contact: Primary Care Provider, Psychiatrist and Therapist Call non-emergency contact if: you have any medication questions and your symptoms worsen Follow-up/Referrals: Bri Cervantes MD [Primary Care Provider] - Diet: Regular Addtl Attending Provider Instructions: Optional mobile apps we discussed: -Suicide safety plan -Virtual Hope Box SPECIAL CARE INSTRUCTIONS: 1. Follow through with your scheduled aftercare appointments. If unable to keep an appointment, please call to reschedule. 2. Take your medication only as prescribed. Medication should not be changed or stopped without the approval of your doctor. In the event of worsening symptoms or concerns about side effects, contact your doctor immediately. 3. Utilize new healthy coping skills, anger management skills, and stress management skills learned during your hospitalization. Journal feelings and process them with a support person. Identify stressors or situations that may result in relapse, deterioration or inappropriate behaviors and develop a plan to deal with those issues. 4. If your coping skills are ineffective and you are in crisis, contact your outpatient providers for direction. If unable to reach your providers, please call the [facility] CRISIS LINE AT , go to the [facility] walk-in center at [address], [place], or go to the closest Emergency Room. 5. Avoid alcohol and un-prescribed drugs. 6. You have been provided with the Mental Health Advance Directives Pamphlet for your review. 7. Your condition is stable for discharge to outpatient level of care, but recovery is an ongoing process. Ifthoughts to harm yourself or others return, follow the safety plan developed during your stay. Planning for a safe return home includes securing weapons. Our treatment team recommends weaponsbe removed from the home until your outpatient provider reassesses your progress. In rare cases where the items themselvescannot be removed, guns and ammunitionshould be secured separatelyand keys stored by a reliable personoutside of the home. If you were admitted on an involuntary commitment, the police or other legal authorities may be involved in this process. AFTERCARE APPOINTMENTS: * Please call your insurance company prior to your scheduled appointment to confirm your aftercare providers are covered. Take your insurance information to your appointments. WHO TO CALL AND WHEN: Medical Emergencies: For questions or emergencies related to your hospital stay, please contact the Inpatient Behavioral Health Unit at [phone]. A commercial diver is on-call 14/05 for the Behavioral Health Unit for emergencies At any time you feel your situation is an emergency, you may also call 911 immediately. Pending Studies at Discharge: No Stand-Alone Forms: My [facility], Smoking Cessation Medications and DC Order Prescriptions: New fexofenadine 180 mg Tablet 180 mg PO QAM Qty: 1 0RF nicotine 7 mg/24 hr Patch 24 Hour 7 mg transdermal QAM 14 Days Qty: 14 0RF gabapentin 100 mg Capsule 100 mg PO BID PRN (Reason: anxiety) 30 Days Qty: 60 0RF gabapentin 300 mg Capsule 300 mg PO HS 30 Days Qty: 30 0RF naltrexone 50 mg Tablet 50 mg PO DAILYBB 30 Days Qty: 30 0RF Rx Instructions: take 1/2 tab (25mg) for 7 days then increase to 1 tab (50mg) once daily Continued Cerovite Senior 0.4 mg-300 mcg- 250 mcg Tablet 1 tab PO QAM Qty: 30 0RF thiamine HCl (vitamin B1) 100 mg tablet 200 mg PO BID 30 Days Qty: 120 0RF folic acid 1 mg Tablet 1 mg PO QAM 30 Days Qty: 30 0RF Discontinued gabapentin 600 mg Tablet 600 mg PO ONCE Qty: 1 0RF Rx Instructions: give at bedtime on 06/24/22 (part of gabapentin taper for recent etoh withdrawal) Discharge Orders: Discharge Order (Routine); Ordered 06/29/22 Ordered By: Vita Ha/Other Patient Handouts: Smoking Get Help to Quit Admission Data Admit Date/Time: 06/24/22 18:00 Attending Provider: Vita Mackey Admit Provider: Vita Mackey Primary Care Provider: Bri Cervantes Other Interventions: Discharge Summary Assessment (RN) Last Done: 06/29/22 08:07 PSY Interdisciplinary Discharge Planning Last Done: 06/28/22 10:11 Coding Level of Care Code 86556 D/C day mgmt > 30 min Diagnoses Post traumatic stress disorder (PTSD) F43.10 Alcohol use disorder, severe, dependence F10.20 BRITTNY (generalized anxiety disorder) F41.1 Depression F32.A Self-harming behavior Major depressive disorder, recurrent episode F33.9 Elevated liver enzymes R74.8 Time Spent (min) 45
== END 2022-06-29 11:15 | disposition home or self-care (01) | DRG 882 ==
LOC: 3S 18:00

== ENCOUNTER 2022-07-12 20:54 | Inpatient (IN) ==
--- NOTE | 2022-07-12 21:46 | Emergency Department Note ---
Impression & Plan Suicidal behavior Still a patient ED Provider Note HPI: The patient is a 32-year-old male with history of alcohol use disorder, anxiety/depression, major depressive disorder, presents the emergency department after making suicidal threats over the phone with sister. Police were contacted and patient was brought to the ED for further assessment. On my initial assess ment the patient is unable to give me many details about his presentation, states he does not know why he is here. And is however alert on arrival, he is hemodynamically stable and in no acute distress on my initial assessment. ROS: -Psychiatric: Suicidal threats *10 point review systems was conducted and is otherwise negative unless stated above *Outpatient medications and allergy history reviewed PE: General: Alert, NAD HEENT: Normocephalic, atraumatic Eyes: Extraocular eye movement is intact, no scleral erythema Pulmonary: Labored breathing Cardio: Well-perfused, no cyanosis GI: Abdomen is nondistended : Deferred MSK: No evidence of trauma or malformation of the extremities, no edema Skin: No evidence of rash Neuro: Alert, no focal deficits, ambulates all extremities spontaneously Psychiatric: Cooperative, appears intoxicated Medical Decision Making: Patient presented to the emergency department as a 302 by his sister, he reportedly was making suicidal threats over the phone, police were contacted and the patient was brought to the ED. On arrival here to the ED he does appear intoxicated but is otherwise in no acute distress. He is unable to give me many details about his presentation. Lab work was obtained and shows an alcohol level of 407, patient was observed in the ED overnight without any need for acute interventions after he was given 1 dose of Ativan on arrival I request for anxiety and he stated he was beginning to feel agitated. 302 petition was placed and patient is currently here voluntarily pending clearance for alcohol intoxication. Given his level of alertness on arrival despite his alcohol level being significantly elevated he will require further observation for the possibility of alcohol withdrawal as well. Patient was signed out to my colleague in the morning, Dr. Jacobson, pending reevaluation and placement potentially for suicidal threats following medical clearance. Diagnosis: 1. Suicidal threats 2. Alcohol intoxication 3. Major depressive disorder Disposition: Still a patient Wilman Cobos DO Emergency Medicine Past Med/Surg History Medical History Abdominal pain Acute sinusitis Alcohol abuse with alcohol-induced anxiety disorder Chest pain Dizziness BRITTNY (generalized anxiety disorder) Headache Hypokalemia Lab test negative for COVID-19 virus Left leg cellulitis No pertinent family history Pain, dental Suicidal ideation Surgical History No pertinent past surgical history Family History Other No significant family history Social History Smoking Status: Never smoker Tobacco Type: Cigarettes and E-cigarettes / Vaping Cigarettes Per Day: 7-8 per day; Second Hand Exposure: No; Hx Alcohol Use: No Hx Substance Use: No Preferred Language: Emirati Communication Ability: Effective Visual Impairment: No Limitations Hearing Ability: Normal Club Former Required: No Beliefs That Will Affect Care: None marital status: Current Living Situation: Spouse current occupational status: employed Feels Safe at Home: Declines to Answer Childhood Exposure to Second-Hand Smoke: No Dental Care, Regularly: Yes Physical Activity Frequency: Daily Seatbelt Use: always Sunscreen Use: No Assistive Devices: None Allergies Allergies Allergy/AdvReac Type Severity Reaction Status Date / Time bupropion [From Wellbutrin] AdvReac Severe anxiety, Verified 07/06/22 10:20 confussion buspirone [From BuSpar] AdvReac Intermediate Shaking/john Verified 07/06/22 10:20 mor gluten AdvReac Unknown Unknown Verified 07/06/22 10:20 milk AdvReac Unknown Unknown Verified 07/06/22 10:20 antihistamines AdvReac Intermediate "Just Uncoded 07/06/22 10:20 Don't Feel Right When I Take Them" Home Meds Previous Rx's Medication Instructions Recorded [id number] acid 0.4 1 tab PO QAM #30 tabs 06/24/22 mg-lycopene 300 mcg-lutein 250 mcg tablet (Cerovite Senior) fexofenadine 180 mg tablet 180 mg PO QAM #1 tab 06/29/22 folic acid 1 mg tablet 1 mg PO QAM alcohol use disorder 06/29/22 30 days #30 tabs gabapentin 100 mg capsule 100 mg PO BID PRN anxiety 30 days 06/29/22 #60 caps gabapentin 300 mg capsule 300 mg PO HS anxiety/alcohol use 06/29/22 disorder 30 days #30 caps naltrexone 50 mg tablet 50 mg PO DAILYBB 30 days #30 tabs 06/29/22 nicotine 7 mg/24 hr daily 7 mg transdermal QAM nicotine use 06/29/22 transdermal patch disorder 14 days #14 ea thiamine HCl (vitamin B1) 100 mg 200 mg PO BID alcohol use disorder 06/29/22 tablet 30 days #120 tabs Results & Data (ED) Vital Signs Vital Signs - 24 hr 07/12/22 21:14 07/12/22 21:39 07/12/22 23:20 Temperature Temperature Source Pulse Rate [Finger] 122 H 80 Pulse Rhythm [Finger] Pulse Strength [Finger] Respiratory Rate 22 18 Respiratory Effort / Characteristics Non-Labored Spontaneous Respiratory Depth Normal Respiratory Pattern Blood Pressure [Left Arm] 146/106 H 120/79 Blood Pressure Mean [Left Arm] 119 92 Blood Pressure Position [Left Arm] Pulse Oximetry 98 97 Oxygen Delivery Method Room Air Room Air Sepsis Recent Fever Within 48 Hours No Sepsis New/Unexplained Change in Mental Status N/A Sepsis Action Taken by Nursing No Action Required 07/13/22 01:20 07/13/22 03:00 07/13/22 05:00 Temperature 36.2 C L Temperature Source Oral Pulse Rate [Finger] 70 63 68 Pulse Rhythm [Finger] Regular Regular Pulse Strength [Finger] Normal Normal Respiratory Rate 18 16 18 Respiratory Effort / Characteristics Non-Labored Spontaneous Non-Labored Non-Labored Respiratory Depth Normal Normal Normal Respiratory Pattern Regular Regular Regular Blood Pressure [Left Arm] 121/73 103/75 103/68 Blood Pressure Mean [Left Arm] 89 84 79 Blood Pressure Position [Left Arm] Lying Pulse Oximetry 95 96 96 Oxygen Delivery Method Room Air Room Air Room Air Sepsis Recent Fever Within 48 Hours Sepsis New/Unexplained Change in Mental Status Sepsis Action Taken by Nursing Laboratory Data Result diagrams: 07/12/22 21:37 07/12/22 21:37 Lab Results 07/12/22 07/12/22 07/12/22 Range/Units 21:37 21:37 21:37 WBC 6.99 (4.8-10.8) K/ul RBC 5.12 (4.63-6.08) M/uL Hgb 17.1 (14.0-18.0) g/dl Hct 49.1 (40.1-51.0) % MCV 95.9 (80.0-100.0) fL MCH 33.4 (25.0-34.0) pg MCHC 34.8 (32.0-36.0) g/dL RDW Std Deviation 45.3 (36.4-46.3) fL RDW Coeff of Bryanna 12.7 (11.5-14.5) % Plt Count 231 (130-400) K/uL MPV 10.5 (9.4-12.4) fL Immature Gran % (Auto) 0.6 % Neut % (Auto) 56.8 % Lymph % (Auto) 33.3 % Villalba % (Auto) 5.4 % Eos % (Auto) 2.6 % Baso % (Auto) 1.3 % Neut # (Auto) 3.97 (1.4-6.5) K/uL Lymph # (Auto) 2.33 (1.2-3.4) K/uL Villalba # (Auto) 0.38 (0.24-0.82) K/uL Eos # (Auto) 0.18 (0-0.50) K/uL Baso # (Auto) 0.09 (0-0.2) K/uL Immature Gran # (Auto) 0.04 H (0.00-0.02) K/uL Sodium 144 (136-145) mmol/L Potassium 3.6 (3.5-5.1) mmol/L Chloride 106 (98-107) mmol/L Carbon Dioxide 23 (21-32) mmol/L Anion Gap 15 H (3-11) BUN 9 (6-23) mg/dl Creatinine 0.89 (0.6-1.4) mg/dl Est Cr Clr Drug Dosing 143.0 ml/min Est GFR ( Amer) 132.1 ml/min Est GFR (Non-Af Amer) 113.9 ml/min BUN/Creatinine Ratio 10.1 (10-20) Glucose 98 (70-99(Fasting)) mg/dl Calcium 9.1 (8.5-10.1) mg/dl Total Bilirubin 0.3 (0.2-1.0) mg/dl AST 41 H (13-39) U/L ALT 32 (7-52) U/L Alkaline Phosphatase 49 (34-104) U/L Total Protein 7.6 (6.0-8.3) gm/dl Albumin 4.6 (3.4-5.0) gm/dl Globulin 3.0 (2.5-4.0) gm/dl Albumin/Globulin Ratio 1.5 (0.9-2) TSH 1.356 (0.300-4.500) uIu/ml Urine Color Urine Appearance (Clear) Urine pH (4.5-7.5) Ur Specific [place] (1.000-1.030) Urine Protein (Negative) Urine Glucose (UA) (Negative) Urine Ketones (Negative) Urine Blood (Negative) Urine Nitrite (Negative) Urine Bilirubin (Negative) Urine Urobilinogen (Negative) Ur Leukocyte Esterase (Negative) Urine WBC (Auto) (0-5) /hpf Urine RBC (Auto) (0-4) /hpf U Hyaline Cast (Auto) (0-5) /lpf U Epithel Cells (Auto) (0-5) /lpf Urine Bacteria (Auto) (Negative) Salicylates (3.0-30) mg/dl Urine Opiates Screen (Neg) Ur Methadone, Qual (Neg) Acetaminophen (10-30) ug/ml Urine Barbiturates (Neg) Ur Phencyclidine (PCP) (Neg) U Amphetamin/Meth Scrn (Neg) MDMA (Ecstasy) Screen (Neg) U Benzodiazepines Scrn (Neg) Ur Cocaine Metabolite (Neg) U Marijuana (THC) Screen (Neg) Ethyl Alcohol mg/dL (<10.0) mg/dl 07/12/22 07/12/22 07/13/22 Range/Units 21:37 21:37 00:15 WBC (4.8-10.8) K/ul RBC (4.63-6.08) M/uL Hgb (14.0-18.0) g/dl Hct (40.1-51.0) % MCV (80.0-100.0) fL MCH (25.0-34.0) pg MCHC (32.0-36.0) g/dL RDW Std Deviation (36.4-46.3) fL RDW Coeff of Bryanna (11.5-14.5) % Plt Count (130-400) K/uL MPV (9.4-12.4) fL Immature Gran % (Auto) % Neut % (Auto) % Lymph % (Auto) % Villalba % (Auto) % Eos % (Auto) % Baso % (Auto) % Neut # (Auto) (1.4-6.5) K/uL Lymph # (Auto) (1.2-3.4) K/uL [place] # (Auto) (0.24-0.82) K/uL Eos # (Auto) (0-0.50) K/uL Baso # (Auto) (0-0.2) K/uL Immature Gran # (Auto) (0.00-0.02) K/uL Sodium (136-145) mmol/L Potassium (3.5-5.1) mmol/L Chloride (98-107) mmol/L Carbon Dioxide (21-32) mmol/L Anion Gap (3-11) BUN (6-23) mg/dl Creatinine (0.6-1.4) mg/dl Est Cr Clr Drug Dosing ml/min Est GFR ( Amer) ml/min Est GFR (Non-Af Amer) ml/min BUN/Creatinine Ratio (10-20) Glucose (70-99(Fasting)) mg/dl Calcium (8.5-10.1) mg/dl Total Bilirubin (0.2-1.0) mg/dl AST (13-39) U/L ALT (7-52) U/L Alkaline Phosphatase (34-104) U/L Total Protein (6.0-8.3) gm/dl Albumin (3.4-5.0) gm/dl Globulin (2.5-4.0) gm/dl Albumin/Globulin Ratio (0.9-2) TSH (0.300-4.500) uIu/ml Urine Color Yellow Urine Appearance Clear (Clear) Urine pH 6.5 (4.5-7.5) Ur Specific [place] 1.012 (1.000-1.030) Urine Protein Trace H (Negative) Urine Glucose (UA) Negative (Negative) Urine Ketones Negative (Negative) Urine Blood Negative (Negative) Urine Nitrite Negative (Negative) Urine Bilirubin Negative (Negative) Urine Urobilinogen Negative (Negative) Ur Leukocyte Esterase Trace H (Negative) Urine WBC (Auto) 1-5 (0-5) /hpf Urine RBC (Auto) 0-4 (0-4) /hpf U Hyaline Cast (Auto) 1-5 (0-5) /lpf U Epithel Cells (Auto) 5-10 H (0-5) /lpf Urine Bacteria (Auto) Negative (Negative) Salicylates < 3.0 L (3.0-30) mg/dl Urine Opiates Screen (Neg) Ur Methadone, Qual (Neg) Acetaminophen < 3 L (10-30) ug/ml Urine Barbiturates (Neg) Ur Phencyclidine (PCP) (Neg) U Amphetamin/Meth Scrn (Neg) MDMA (Ecstasy) Screen (Neg) U Benzodiazepines Scrn (Neg) Ur Cocaine Metabolite (Neg) U Marijuana (THC) Screen (Neg) Ethyl Alcohol mg/dL 407.1 H (<10.0) mg/dl 07/13/22 Range/Units 00:15 WBC (4.8-10.8) K/ul RBC (4.63-6.08) M/uL Hgb (14.0-18.0) g/dl Hct (40.1-51.0) % MCV (80.0-100.0) fL MCH (25.0-34.0) pg MCHC (32.0-36.0) g/dL RDW Std Deviation (36.4-46.3) fL RDW Coeff of Bryanna (11.5-14.5) % Plt Count (130-400) K/uL MPV (9.4-12.4) fL Immature Gran % (Auto) % Neut % (Auto) % Lymph % (Auto) % Villalba % (Auto) % Eos % (Auto) % Baso % (Auto) % Neut # (Auto) (1.4-6.5) K/uL Lymph # (Auto) (1.2-3.4) K/uL [place] # (Auto) (0.24-0.82) K/uL Eos # (Auto) (0-0.50) K/uL Baso # (Auto) (0-0.2) K/uL Immature Gran # (Auto) (0.00-0.02) K/uL Sodium (136-145) mmol/L Potassium (3.5-5.1) mmol/L Chloride (98-107) mmol/L Carbon Dioxide (21-32) mmol/L Anion Gap (3-11) BUN (6-23) mg/dl Creatinine (0.6-1.4) mg/dl Est Cr Clr Drug Dosing ml/min Est GFR ( Amer) ml/min Est GFR (Non-Af Amer) ml/min BUN/Creatinine Ratio (10-20) Glucose (70-99(Fasting)) mg/dl Calcium (8.5-10.1) mg/dl Total Bilirubin (0.2-1.0) mg/dl AST (13-39) U/L ALT (7-52) U/L Alkaline Phosphatase (34-104) U/L Total Protein (6.0-8.3) gm/dl Albumin (3.4-5.0) gm/dl Globulin (2.5-4.0) gm/dl Albumin/Globulin Ratio (0.9-2) TSH (0.300-4.500) uIu/ml Urine Color Urine Appearance (Clear) Urine pH (4.5-7.5) Ur Specific [place] (1.000-1.030) Urine Protein (Negative) Urine Glucose (UA) (Negative) Urine Ketones (Negative) Urine Blood (Negative) Urine Nitrite (Negative) Urine Bilirubin (Negative) Urine Urobilinogen (Negative) Ur Leukocyte Esterase (Negative) Urine WBC (Auto) (0-5) /hpf Urine RBC (Auto) (0-4) /hpf U Hyaline Cast (Auto) (0-5) /lpf U Epithel Cells (Auto) (0-5) /lpf Urine Bacteria (Auto) (Negative) Salicylates (3.0-30) mg/dl Urine Opiates Screen Neg (Neg) Ur Methadone, Qual Neg (Neg) Acetaminophen (10-30) ug/ml Urine Barbiturates Neg (Neg) Ur Phencyclidine (PCP) Neg (Neg) U Amphetamin/Meth Scrn Neg (Neg) MDMA (Ecstasy) Screen Neg (Neg) U Benzodiazepines Scrn Neg (Neg) Ur Cocaine Metabolite Neg (Neg) U Marijuana (THC) Screen Neg (Neg) Ethyl Alcohol mg/dL (<10.0) mg/dl Administered Medications Discontinued Medications Lorazepam (Lorazepam 1 Mg Tab) 1 mg PO NOW STA Stop: 07/12/22 21:57 Last Admin: 07/12/22 22:01 Dose: 1 mg Documented By: KMF Discharge Plan Visit Data Chief Complaint: Mental Health Evaluation Stated Complaint: ?302 ED Provider: Wilman Cobos Discharge Problem: Suicidal behavior Patient Disposition: Still a Patient Forms Stand Alone Forms: My [facility], Suicide Prevention Resources Prescriptions Prescriptions: No Action Cerovite Senior 0.4 mg-300 mcg- 250 mcg Tablet 1 tab PO QAM Qty: 30 0RF fexofenadine 180 mg Tablet 180 mg PO QAM Qty: 1 0RF nicotine 7 mg/24 hr Patch 24 Hour 7 mg transdermal QAM 14 Days Qty: 14 0RF gabapentin 100 mg Capsule 100 mg PO BID PRN (Reason: anxiety) 30 Days Qty: 60 0RF gabapentin 300 mg Capsule 300 mg PO HS 30 Days Qty: 30 0RF naltrexone 50 mg Tablet 50 mg PO DAILYBB 30 Days Qty: 30 0RF Rx Instructions: take 1/2 tab (25mg) for 7 days then increase to 1 tab (50mg) once daily thiamine HCl (vitamin B1) 100 mg tablet 200 mg PO BID 30 Days Qty: 120 0RF folic acid 1 mg Tablet 1 mg PO QAM 30 Days Qty: 30 0RF Referrals Referrals: Bri Cervantes MD [Primary Care Provider] -
[2022-07-12] MEDS ORDERED: LORazepam 1 MG TAB PO STA (21:56)
[2022-07-12 22:11] LABS: Basophils # (auto) 0.09 K/uL (0-0.2); Basophils % (auto) 1.3 %; Eosinophils # (auto) 0.18 K/uL (0-0.50); Eosinophils % (auto) 2.6 %; Hematocrit (blood only) 49.1 % (40.1-51.0); Hemoglobin 17.1 g/dl (14.0-18.0); Immature Granulocytes # (auto) 0.04 K/uL (0.00-0.02); Immature Granulocytes % (auto) 0.6 %; Lymphocytes # (auto) 2.33 K/uL (1.2-3.4); Lymphocytes % (auto) 33.3 %; Mean Corpuscular Hemoglobin 33.4 pg (25.0-34.0); Mean Corpuscular Hgb Conc 34.8 g/dL (32.0-36.0); Mean Corpuscular Volume 95.9 fL (80.0-100.0); Mean Platelet Volume 10.5 fL (9.4-12.4); Monocytes # (auto) 0.38 K/uL (0.24-0.82); Monocytes % (auto) 5.4 %; Neutrophils # (auto) 3.97 K/uL (1.4-6.5); Neutrophils % (auto) 56.8 %; Platelet Count 231 K/uL (130-400); RDW Coefficient of Variation 12.7 % (11.5-14.5); RDW Standard Deviation 45.3 fL (36.4-46.3); Red Blood Count 5.12 M/uL (4.63-6.08); White Blood Count 6.99 K/ul (4.8-10.8)
[2022-07-12 22:20] LABS: Albumin Globulin Ratio 1.5 (0.9-2); Albumin Level 4.6 gm/dl (3.4-5.0); BUN Creatinine Ratio 10.1 (10-20); Bilirubin,Total 0.3 mg/dl (0.2-1.0); Calcium 9.1 mg/dl (8.5-10.1); Est GFR (African American) 132.1 ml/min; Est GFR (Non-African American) 113.9 ml/min; Potassium 3.6 mmol/L (3.5-5.1); Total Protein 7.6 gm/dl (6.0-8.3)
[2022-07-12 22:22] LABS: Acetaminophen < 3 ug/ml (10-30); Salicylate < 3.0 mg/dl (3.0-30)
[2022-07-13 00:55] LABS: Appearance Urine Clear (Clear); Bacteria Urine Automated Negative (Negative); Bilirubin Urine Negative (Negative); Blood Urine Negative (Negative); Color Urine Yellow; Glucose Urine UA Negative (Negative); Ketones Urine Negative (Negative); Leukocyte Esterase Urine Trace (Negative); Nitrite Urine Negative (Negative); Protein Urine Trace (Negative); RBC Urine Automated 0-4 /hpf (0-4); Specific Gravity Urine 1.012 (1.000-1.030); Urobilinogen Urine Negative (Negative); pH Urine 6.5 (4.5-7.5)
[2022-07-13 01:14] LABS: Amphetamines+Metham, Urine Neg (Neg); Barbiturates, Urine Neg (Neg); Benzodiazepine, Urine Neg (Neg); Cocaine, Urine Neg (Neg); MDMA (Ecstacy), Urine Neg (Neg); Methadone, Urine Neg (Neg); Opiate, Urine Neg (Neg); Phencyclidine, Urine Neg (Neg)
[2022-07-13] MEDS ORDERED: LORazepam 1 MG TAB PO STA (06:15)
--- NOTE | 2022-07-13 07:22 | Emergency Department Note ---
ED Visit Note 0721: Signout from Dr. Cobos 32-year-old male with history of alcoholism and depression. Patient having suicidal ideation. 302 side. Awaiting evaluation by psychiatric renal case manager. 1425: Case management met with patient. Delegate is on her way to hold up 302. Patient did require some Ativan. Awaiting placement. Case signed out to Dr. Guzmán. . : Suicidal behavior Qualifiers: Attempted self-injury: without attempted self-injury Qualified Code(s): R45.89 - Other symptoms and signs involving emotional state
[2022-07-13] MEDS ORDERED: LORazepam 1 MG TAB SL STA ×2 (09:12→13:33)
[2022-07-13] MEDS ORDERED: GABAPENTIN 100 MG CAP PO SCH ×2 (11:30→21:00)
[2022-07-13] MEDS ORDERED: ACETAMINOPHEN 325 MG TAB PO PRN (17:00)
[2022-07-13] MEDS ORDERED: MAGNESIUM HYDROXIDE SUSP 30 ML UDC PO PRN (17:00)
[2022-07-13] MEDS ORDERED: BISMUTH SUBSALICYLATE LIQD 236 ML PO PRN (17:00)
[2022-07-13] MEDS ORDERED: ALUMINUM/MAGNESIUM SUSP 30 ML UDC PO PRN (17:00)
[2022-07-13] MEDS ORDERED: SODIUM CHLORIDE 0.65% NA SOLN 45 ML (OCEAN) PRN (17:00)
[2022-07-13] MEDS ORDERED: hydrOXYzine HCl 25 MG TAB PO PRN ×2 (17:00)
[2022-07-13] MEDS ORDERED: LORazepam 1 MG TAB PO PRN ×2 (17:44)
[2022-07-13] MEDS ORDERED: Ativan PO Alcohol Withdrawal--Active Protocol PO PRN (17:44)
[2022-07-13] MEDS: LORazepam 1 MG TAB PO PRN ×2 (18:24→20:34)
[2022-07-13] MEDS ORDERED: NICOTINE POLACRILEX 2 MG GUM MT PRN (19:45)
--- NOTE | 2022-07-13 22:02 | Emergency Department Note ---
ED Visit Note Patient signed out to me at change of shift by Dr. Jacobson. Patient with a long history of alcohol abuse and depression. Patient verbalizing suicidal ideation. Patient here is a 302 which was upheld. Patient had plans to "shoot himself or get himself". No issues during my shift and vital signs stable. No evidence of active alcohol withdrawal. Patient accepted to 3 S. . : Suicidal behavior Qualifiers: Attempted self-injury: without attempted self-injury Qualified Code(s): R45.89 - Other symptoms and signs involving emotional state
[2022-07-14] MEDS: LORazepam 1 MG TAB PO PRN ×5 (00:36→21:42)
[2022-07-14] MEDS ORDERED: GABAPENTIN 100 MG CAP PO PRN (08:42)
[2022-07-14] MEDS: FOLIC ACID 1 MG TAB PO SCH (09:33)
[2022-07-14] MEDS: THIAMINE HCL 100 MG TAB PO SCH (09:33)
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
[2022-07-14] MEDS: NICOTINE 21 MG/24 HR TDSY TD SCH (12:23)
[2022-07-14] MEDS: GABAPENTIN 100 MG CAP PO PRN (12:27)
[2022-07-14] MEDS: GABAPENTIN 300 MG CAP PO SCH (21:43)
[2022-07-15] MEDS: FOLIC ACID 1 MG TAB PO SCH (08:36)
[2022-07-15] MEDS: NALTREXONE HCL 50 MG TAB PO SCH (08:36)
[2022-07-15] MEDS: THIAMINE HCL 100 MG TAB PO SCH (08:38)
[2022-07-15] MEDS: NICOTINE 21 MG/24 HR TDSY TD SCH (08:39)
[2022-07-15] MEDS: IBUPROFEN 200 MG TAB PO PRN (11:56)
[2022-07-15] MEDS: GABAPENTIN 100 MG CAP PO PRN ×2 (11:58→18:50)
--- NOTE | 2022-07-15 12:11 | Psychiatric Progress Note ---
Date of Service July 15, 2022 Impression / Recommendations Impression The patient is a 32 year old with a history of alcohol use disorder, PTSD, BRITTNY and MDD who was admitted for SI with plan of stabbing himself and after asking police to shoot him. Diagnostically consistent with alcohol use disorder, severe as well as unspecified depression and anxiety likely a combination of PTSD, BRITTNY and MDD as well as alcohol-induced mood symptoms. Continue to monitor closely for alcohol withdrawal, he's scoring on AWSS and receiving ativan. The patient was deemed unstable and requires psychiatric hospitalization for diagnostic clarification, safety and stabilization, medication management and development of further coping skills. 07/15/22 less minimization of his ETOH use but still refusing rehab. 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 07/14/22: The patient was admitted to the [facility] ([facility] mental health unit) on q15 min checks (behavioral with suicide precautions) for safety. The patient will participate in group, recreational, and milieu therapies and will be offered additional individual and family sessions as clinically appropriate. -Increase gabapentin to 100mg TID prn for anxiety -continue with gabapentin 300mg qhs -AWSS with ativan for scoring, thiamine and folic acid -restart naltrexone 25mg qd -continue [place] regarding residential substance use tx Inventory Assets Strengths: supportive relationships, no access to guns, wants to provide for his family Needs: safety and stabilization, medication adjustment, additional coping skills, alcohol use tx-residential Suicide Risk Level Suicide Risk Level: Moderate (q15 min suicide checks) Risk Factors Assessment Male: Yes : Yes Do You Have Access To A Gun?: No Mental Health Diagnoses: Yes Substance Use Disorders: Yes Previous Attempt: No Family History of Suicide: No Previous Psychiatric Hospitalization: Yes Hopelessness: No Protective Factors Assessment Orthodox Beliefs: Yes : Yes 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 Chief Complaint "I know I can't drink and that you think I should go to rehab but I'll lose everything." Review of Systems Sleep Information Total Hours of Sleep: 7.5 Sleep Comments: Ativan 1 mg Meal Information Percent Meal Consumed - Breakfast: 100 Percent Meal Consumed - Lunch: 80 Percent Meal Consumed - Dinner: 100 Subjective Subjective Patient was seen & assessed and interval progress reviewed with nursing and social work. Calm and cooperative on unit. Endorses anxiety about his as a general trigger for his own anxiety and drinking. Has been scoring on AWSS protocol but physically feeling better this am. Questionable visual hills last pm of seeing "waves on the floor." No dysregulated behavior. Consistently denies intent to harm self or others. Physical Exam Psychiatric Orientation: alert and oriented x 3 Apperance: appropriately dressed and appropriately groomed Eye Contact: good eye contact Motor Behavior: no abnormal motor movements Speech: normal rate/rhythm/volume of speech Affect: + anxious affect Mood: + depressed mood and + anxious mood Thought Process: + concrete thought process Thought Content: reality based without delusions Suicidal Thoughts: denies suicidal thoughts, denies suicidal plan and denies suicidal intent Homicidal Thoughts: denies homicidal thoughts Hallucinations: no auditory hallucinations and no visual hallucinations Cognition: attention grossly intact Estimated Intelligence: consistent with education level Insight: + poor insight Judgement: + poor judgement Vital Signs (Past 24 Hours) Last Vital Signs Temp 36.5 C 07/15/22 12:07 Pulse 71 07/15/22 12:07 Resp 16 07/15/22 12:07 BP 147/84 H 07/15/22 12:07 Pulse Ox 100 07/14/22 17:11 O2 Del Method 07/14/22 17:11 Results & Data ([facility]) Current Inpatient Medications Current Inpatient Medications: Current Inpatient Medications Al Hydrox/Mg Hydrox/Simethicone (Aluminum/Magnesium Susp 30 Ml Udc) 30 ml PO Q4H PRN PRN Reason: GI Upset Stop: 08/12/22 16:59 Last Admin: 07/14/22 14:13 Dose: 30 ml Bismuth Subsalicylate (Bismuth Subsalicylate Liqd 236 Ml) 15 ml PO PRN PRN PRN Reason: Loose Stool Stop: 08/12/22 16:59 Folic Acid (Folic Acid 1 Mg Tab) 1 mg PO QAM XIOMY Stop: 08/13/22 08:59 Last Admin: 07/15/22 08:36 Dose: 1 mg Gabapentin (Gabapentin 300 Mg Cap) 300 mg PO HS XIOMY Stop: 08/13/22 21:59 Last Admin: 07/14/22 21:43 Dose: 300 mg Gabapentin (Gabapentin 100 Mg Cap) 100 mg PO TID PRN PRN Reason: anxiety Stop: 08/13/22 08:41 Last Admin: 07/15/22 11:58 Dose: 100 mg Hydroxyzine HCl (Hydroxyzine Hcl 25 Mg Tab) 50 mg PO HSZ PRN PRN Reason: Insomnia Stop: 08/12/22 16:59 Hydroxyzine HCl (Hydroxyzine Hcl 25 Mg Tab) 25 mg PO Q4H PRN PRN Reason: Anxiety Stop: 08/12/22 16:59 Ibuprofen (Ibuprofen 200 Mg Tab) 400 mg PO TID PRN PRN Reason: pain Stop: 08/13/22 11:30 Last Admin: 07/15/22 11:56 Dose: 400 mg Lorazepam (Lorazepam 1 Mg Tab) 1 mg PO UD PRN; Protocol PRN Reason: EtOH Withdrawal AWSS Score 6,7 Stop: 08/12/22 17:43 Last Admin: 07/14/22 21:42 Dose: 1 mg Lorazepam (Lorazepam 1 Mg Tab) 3 mg PO ONCE PRN; Protocol PRN Reason: EtOH Withdrawal AWSS Score 10 & above Lorazepam (Lorazepam 1 Mg Tab) 2 mg PO UD PRN; Protocol PRN Reason: EtOH Withdrawal AWSS Score 8,9 Stop: 08/12/22 17:43 Magnesium Hydroxide (Magnesium Hydroxide Susp 30 Ml Udc) 30 ml PO DAILY PRN PRN Reason: Constipation Stop: 08/12/22 16:59 Miscellaneous (Remove Nicoderm Patch) 1 each N/A DAILY@0859 [facility] Stop: 08/13/22 11:58 Last Admin: 07/15/22 08:35 Dose: Not Given Naltrexone HCl (Naltrexone Hcl 50 Mg Tab) 25 mg PO DAILY XIOMY Stop: 08/14/22 08:59 Last Admin: 07/15/22 08:36 Dose: 25 mg Nicotine (Nicotine 21 Mg/24 Hr Tdsy) 21 mg TD QAM XIOMY Stop: 08/13/22 11:59 Last Admin: 07/15/22 08:39 Dose: 21 mg Nicotine Polacrilex (Nicotine Polacrilex 2 Mg Gum) 1 piece MT PRN PRN PRN Reason: Nicotine Withdrawal Stop: 08/12/22 19:44 Last Admin: 07/13/22 19:49 Dose: 1 piece Sodium Chloride (Sodium Chloride 0.65% Na Soln 45 Ml ([place])) 1 - 2 sprays NA PRN PRN PRN Reason: Nasal Dryness/Congestion Stop: 08/12/22 16:59 Thiamine HCl (Thiamine Hcl 100 Mg Tab) 200 mg PO QAM XIOMY Stop: 08/13/22 08:59 Last Admin: 07/15/22 08:38 Dose: 200 mg Mental Health & Subst Abuse Tx Psychiatrist Name of Psychiatrist: Thomas Psychiatrist's Date of Appointment with Psychiatrist: 07/19/22 Time of Appointment with Psychiatrist: 08:15 Psychiatric Appointment Comment: [address] [place] [address] Therapist Name of Therapist: Robyn Counseling Therapist's Date of Therapist Appointment: 07/15/22 Time of Therapist Appointment: 1:30 Post Discharge Appointments Contact Information Discharge Discharge Address: [address] [place] [id number]
[2022-07-15] MEDS: LORazepam 1 MG TAB PO PRN (13:32)
[2022-07-15] MEDS: GABAPENTIN 300 MG CAP PO SCH (21:16)
[2022-07-16] MEDS: FOLIC ACID 1 MG TAB PO SCH (08:37)
[2022-07-16] MEDS: NICOTINE 21 MG/24 HR TDSY TD SCH (08:37)
[2022-07-16] MEDS: THIAMINE HCL 100 MG TAB PO SCH (08:37)
[2022-07-16] MEDS: NALTREXONE HCL 50 MG TAB PO SCH (08:37)
[2022-07-16] MEDS: IBUPROFEN 200 MG TAB PO PRN (08:43)
[2022-07-16] MEDS: LORazepam 1 MG TAB PO PRN (09:38)
[2022-07-16] MEDS: GABAPENTIN 100 MG CAP PO PRN (09:53)
--- NOTE | 2022-07-16 09:58 | Psychiatric Progress Note ---
Date of Service July 16, 2022 Impression / Recommendations Impression The patient is a 32 year old with a history of alcohol use disorder, PTSD, BRITTNY and MDD who was admitted for SI with plan of stabbing himself and after asking police to shoot him. Diagnostically consistent with alcohol use disorder, severe as well as unspecified depression and anxiety likely a combination of PTSD, BRITTNY and MDD as well as alcohol-induced mood symptoms. Continue to monitor closely for alcohol withdrawal, he's scoring on AWSS and receiving ativan. The patient was deemed unstable and requires psychiatric hospitalization for diagnostic clarification, safety and stabilization, medication management and development of further coping skills. 07/16/22: no evidence of leigh ann or psychosis, continues to deny SI. ETOH withdrawal mild. 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 07/15/22: continue current medication and treatment plan. 07/14/22: The patient was admitted to the [facility] ([facility] mental health unit) on q15 min checks (behavioral with suicide precautions) for safety. The patient will participate in group, recreational, and milieu therapies and will be offered additional individual and family sessions as clinically appropriate. -Increase gabapentin to 100mg TID prn for anxiety -continue with gabapentin 300mg qhs -AWSS with ativan for scoring, thiamine and folic acid -restart naltrexone 25mg qd -continue [place] regarding residential substance use tx Inventory Assets Strengths: supportive relationships, no access to guns, wants to provide for his family Needs: safety and stabilization, medication adjustment, additional coping skills, alcohol use tx-residential Suicide Risk Level Suicide Risk Level: Moderate (q15 min suicide checks) Risk Factors Assessment Male: Yes : Yes Do You Have Access To A Gun?: No Mental Health Diagnoses: Yes Substance Use Disorders: Yes Previous Attempt: No Family History of Suicide: No Previous Psychiatric Hospitalization: Yes Hopelessness: No Protective Factors Assessment Scientology Beliefs: Yes : Yes 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 Chief Complaint still refusing rehab Review of Systems Sleep Information Total Hours of Sleep: 5.5 Sleep Comments: Ativan 1 mg Meal Information Percent Meal Consumed - Breakfast: 80 Percent Meal Consumed - Lunch: 100 Percent Meal Consumed - Dinner: 80 Subjective Subjective Patient was seen & assessed and interval progress reviewed with nursing and social work. Did require Ativan this am for scoring on the AWSS. Seemed more motivated toward AA last pm during discussion with a peer. Physical Exam Psychiatric Orientation: alert and oriented x 3 Apperance: appropriately dressed and appropriately groomed Eye Contact: good eye contact Motor Behavior: no abnormal motor movements Speech: normal rate/rhythm/volume of speech Affect: + depressed affect and + anxious affect Mood: + depressed mood and + anxious mood Thought Process: goal directed thought process and + concrete thought process Thought Content: reality based without delusions Suicidal Thoughts: denies suicidal thoughts, denies suicidal plan and denies suicidal intent Homicidal Thoughts: denies homicidal thoughts Hallucinations: no auditory hallucinations and no visual hallucinations Cognition: language grossly intact Vital Signs (Past 24 Hours) Last Vital Signs Temp 36.5 C 07/16/22 09:30 Pulse 83 07/16/22 09:30 Resp 18 07/16/22 09:30 BP 125/86 07/16/22 09:30 Pulse Ox 97 07/15/22 21:20 O2 Del Method 07/15/22 21:20 Results & Data ([facility]) Current Inpatient Medications Current Inpatient Medications: Current Inpatient Medications Al Hydrox/Mg Hydrox/Simethicone (Aluminum/Magnesium Susp 30 Ml Udc) 30 ml PO Q4H PRN PRN Reason: GI Upset Stop: 08/12/22 16:59 Last Admin: 07/14/22 14:13 Dose: 30 ml Bismuth Subsalicylate (Bismuth Subsalicylate Liqd 236 Ml) 15 ml PO PRN PRN PRN Reason: Loose Stool Stop: 08/12/22 16:59 Folic Acid (Folic Acid 1 Mg Tab) 1 mg PO QAM XIOMY Stop: 08/13/22 08:59 Last Admin: 07/16/22 08:37 Dose: 1 mg Gabapentin (Gabapentin 300 Mg Cap) 300 mg PO HS XIOMY Stop: 08/13/22 21:59 Last Admin: 07/15/22 21:16 Dose: 300 mg Gabapentin (Gabapentin 100 Mg Cap) 100 mg PO TID PRN PRN Reason: anxiety Stop: 08/13/22 08:41 Last Admin: 07/16/22 09:53 Dose: 100 mg Hydroxyzine HCl (Hydroxyzine Hcl 25 Mg Tab) 50 mg PO HSZ PRN PRN Reason: Insomnia Stop: 08/12/22 16:59 Hydroxyzine HCl (Hydroxyzine Hcl 25 Mg Tab) 25 mg PO Q4H PRN PRN Reason: Anxiety Stop: 08/12/22 16:59 Ibuprofen (Ibuprofen 200 Mg Tab) 400 mg PO TID PRN PRN Reason: pain Stop: 08/13/22 11:30 Last Admin: 07/16/22 08:43 Dose: 400 mg Lorazepam (Lorazepam 1 Mg Tab) 1 mg PO UD PRN; Protocol PRN Reason: EtOH Withdrawal AWSS Score 6,7 Stop: 08/12/22 17:43 Last Admin: 07/16/22 09:38 Dose: 1 mg Lorazepam (Lorazepam 1 Mg Tab) 3 mg PO ONCE PRN; Protocol PRN Reason: EtOH Withdrawal AWSS Score 10 & above Lorazepam (Lorazepam 1 Mg Tab) 2 mg PO UD PRN; Protocol PRN Reason: EtOH Withdrawal AWSS Score 8,9 Stop: 08/12/22 17:43 Magnesium Hydroxide (Magnesium Hydroxide Susp 30 Ml Udc) 30 ml PO DAILY PRN PRN Reason: Constipation Stop: 08/12/22 16:59 Miscellaneous (Remove Nicoderm Patch) 1 each N/A DAILY@0859 [facility]OM[facility] Stop: 08/13/22 11:58 Last Admin: 07/16/22 08:37 Dose: 1 each Naltrexone HCl (Naltrexone Hcl 50 Mg Tab) 25 mg PO DAILY XIOMY Stop: 08/14/22 08:59 Last Admin: 07/16/22 08:37 Dose: 25 mg Nicotine (Nicotine 21 Mg/24 Hr Tdsy) 21 mg TD QAM XIOMY Stop: 08/13/22 11:59 Last Admin: 07/16/22 08:37 Dose: 21 mg Nicotine Polacrilex (Nicotine Polacrilex 2 Mg Gum) 1 piece MT PRN PRN PRN Reason: Nicotine Withdrawal Stop: 08/12/22 19:44 Last Admin: 07/13/22 19:49 Dose: 1 piece Sodium Chloride (Sodium Chloride 0.65% Na Soln 45 Ml ([place])) 1 - 2 sprays NA PRN PRN PRN Reason: Nasal Dryness/Congestion Stop: 08/12/22 16:59 Thiamine HCl (Thiamine Hcl 100 Mg Tab) 200 mg PO QAM XIOMY Stop: 08/13/22 08:59 Last Admin: 07/16/22 08:37 Dose: 200 mg Mental Health & Subst Abuse Tx Psychiatrist Name of Psychiatrist: Thomas Psychiatrist's Date of Appointment with Psychiatrist: 07/19/22 Time of Appointment with Psychiatrist: 08:15 Psychiatric Appointment Comment: [address] [place] [address] Therapist Name of Therapist: Robyn Counseling Therapist's Date of Therapist Appointment: 07/15/22 Time of Therapist Appointment: 1:30 Post Discharge Appointments Contact Information Discharge Discharge Address: [address] [place] [id number]
[2022-07-16] MEDS: FEXOFENADINE HCL 180 MG TAB PO SCH (12:27)
[2022-07-16] MEDS: GABAPENTIN 300 MG CAP PO SCH (21:27)
--- NOTE | 2022-07-17 06:32 | Discharge Summary ---
Date of Service July 17, 2022 History of Present Illness As per Dr. Mackey on admission: Chun is well known to our service and was recently admitted from 06/25/22 - 06/29/22 for suicidal ideation, depression and alcohol use. Today he re-presents for psychiatric admission for worsening depression and statements of SI of plan of disembowling himself and asking police to shoot him after they responded to his home due to family's concerns for his safety. His alcohol level on arrival to the ED was 407. After discharge he did not follow-up with attending any AA meetings, and rescheduled his [facility] intake for therapy so this has not yet started. He states he doesn't know why this happened. He notes "I'm embarrassed". After leaving the hospital he was taking his medications, but got a stomach bug and felt more anxiety related to work and financial stress and "the embarrassment of what happened the first time". He was sober for about a week after he left and found support by connecting with a neighbor and family but then he continued to have stressors of his /conflict with them and financial things/feeling like he let down someone he was working for. He then started drinking again and bought wine "I was trying to get that urge to drink away" and bought about 4 boxes of mini-wine bottles and then bought around 5 handles of liquor. He notes "I guess I got really depressed, I'm trying to catch up on things" and can't recall exactly what happened "that's where things get a little bit interesting, I don't know what happened that evening". He notes "I guess one thing lead to another". He notes the biggest ongoing stressor is financial strain and he worries about losing his housing if he were to get more intensive treatment of alcohol use. Reviewed further information from ED case management note from 07/13/22: "Call placed to [facility] [employer] regarding the status of patient's firearm as the petitioning statement for patient indicated threats to shoot himself. This life insurance underwriter is aware of an incident on 06/21/2022 where patient presented to the ED following suicidal/homicidal threats to the police and the discharge of patient's firearm in his home which resulted in confiscation of the firearm by [facility] police. This life insurance underwriter spoke to Sergeant Jesse Javed of [facility] police. He confirmed that the department does still have patient's firearm in their possession, but according to law, they will have to release it back to him at some point as he has not been involuntarily committed under [place] mental health law. His lack of 302 history was confirmed by this life insurance underwriter with Daisy at [facility]. Sgt. Javed expressed that patient's escalation throughout the past year has him and his department extremely worried about the safety of patient himself, police officers responding to his home, and the community at large. Sgt. Javed stated that in 2020, police were called to his home only once. In 2021, police have been called to his home 5 times. Sgt. Javed relays that he believes patient is ultimately going to end his life and likely "take others with him". Sgt. Javed sent the incident report from last night's incident which reads as follows: "On 07-12-2022 at approximately 1951 hours. [employer] officers were dispatched to [address] [place] [address] for a 32 yom threatening to disembowel himself with a knife. When we arrived on scene we made contact with Chun Block, who was extremely intoxicated and in the kitchen standing near a knife. I made initial contact with Mckayla and tried to figure out why he was threatening to kill himself. Mckayla was having difficulty holding consistent conversation but the general idea was that he was depressed. I eventually was able to get Chun to move the knife away from him, at which point he asked me to come around the kitchen counter and talk to him. I spoke with Mckayla for a bit, at which point his demeanor suddenly changed and he stared straight at my firearm in its holster before asking me to take it out and shoot him in the head. As I was engaging him as to why he felt that way, Mckayla began to walk towards me with a blank stare as he closed the gap to within a few feet. I became concerned Mckayla may physically engage with me, and signaled to Sgt. Collazo that I was ready to place Mckayla in handcuffs. Sgt. Collazo and Ofc. Justino Lieberman came around into the kitchen and Sgt. Collazo and Dylan placed an escort hold on each of Mckayla's arms. Mckayla became agitated and demanding we stop touching him. We then began a repeated cycle where Mckayla would tense up and try to pull away and force us to push his arms back down into the lock, at which point engaging with him would calm him down. When it became clear that this cycle didn't have an end in sight, the decision was made to place Mckayla into handcuffs in order to transport him to [facility] for a 302 evaluation[address] Sgt. Collazo and Dylan each secured one of Mckayla's arms behind his back in a reverse wrist lock while OfcAraceli Lieberman placed handcuffs onto Mckayla and double locked them. Mckayla began complaining about the handcuffs being too tight, at which point Sgt. Collazo secured both of his arms in a hammer lock while I removed and reapplied the handcuffs one hand at a time. Once they were resecured and double locked Sgt. Collazo and Dylan began guiding Mckayla to my patrol vehicle. He again became agitated and we were forced to take him without shoes. Mckayla tried to resist being walked to my vehicle, at which point Sgt. Collazo and Dylan placed an arm each into a hammer lock and forced him to the vehicle. Once we arrived at [facility] Mckayla refused to get in. Sgt. Collazo was trying to force him in and I had to disengage the seatbelt and press behind both of Mckayla's knees to get his legs to bend so we could force him in. A decision was made not to secure Mckayla with a seatbelt, as it was now on the opposite side of him from [facility] doorway and he was a potential threat to our safety if we had to reach across to get it. I transported Mckayla to [facility] with Sgt. Collazo following. When we arrived we escorted him through the ambulance doors to the mental health wing where his handcuffs were removed after the ok from hospital security staff. I retrieved 302 paperwork and delivered it to Mckayla's sister, Stefany, who was waiting in the ER waiting room ready to fill it out." and "Chun claims he does not remember the events from last night. Once informed of the incidents from last night, patient claimed that he was embarrassed. He stated that he doesn't feel suicidal. He lacked insight on the significance of the event with police and his continued deterioration following inpatient psychiatric treatment. He states he believes his [facility] appointment scheduled before discharge from [address] [place] [address] is today or tomorrow, but according to discharge paperwork, it was 07/04/2022. When asked about attending AA meetings as was planned upon discharge, Chun stated he didn't get a chance to attend any meetings yet. He stated multiple times that he didn't feel he necessitated inpatient psychiatric treatment but then inquired if he would be 302'd. He said that he wanted to "go home and figure this all out". He admitted to resuming drinking one week after his discharge on 06/29/2022 and continuing to drinking on the job. He states when his mental health is low, he just stays in his house and drinks. Despite this, he reiterated that he thinks he is fine to manage his alcohol intake and mental health on his own. He doesn't grasp the risk of danger he puts himself and the community in when he is heavily intoxicated. He admits to drinking 20 "standard drinks" of vodka last night." He is currently prescribed psychiatric medications from his last [facility] admission of gabapentin 100mg BID prn for anxiety and 300mg qhs for anxiety and alcohol use disorder which he continues to find helpful. He took naltrexone for a week but then had nausea and a GI viral and so has not been taking naltrexone 50mg qd for the last 1.5 weeks. Psychiatric ROS notable for no current nor history of symptoms of leigh ann, psychosis, OCD nor eating disorder. Physical Exam Psychiatric See admission H&P and DOD assessment. Vital Signs (Past 24 Hours) Last Vital Signs Temp 36.4 C L 07/17/22 06:29 Pulse 69 07/17/22 06:30 Resp 16 07/17/22 06:29 BP 119/79 07/17/22 06:30 Pulse Ox 98 07/16/22 18:23 O2 Del Method 07/16/22 18:23 Principal Diagnosis major depressive disorder Psychiatric Data See daily stay summary. In short, safety was maintained and the patient was cooperative with care. Medication changes included resuming gabapentin and naltresone and they tolerated this well. Alcohol withdrawal was monitored and treated with Ativan according to AWSS protocol. He had minimal symptoms compared to previous stays and Ativan requirement decreased after day 2 of stay. Most symptoms he reported to MD could also be attributable to allergies and he was restarted on Anuradha. He did not appear to be responding to internal stimuli and his thoughts cleared. A safety plan was completed prior to discharge and was involved with having a family member remove limited amount of ETOH from the home. It was recommended he go to inpatient rehab but he repeatedly declined. As typical pattern he denies SI and exhibits no dysregulation/impulsivity outside of acute intoxication with alcohol and he no longer meets criteria for involuntary containment. He cannot be committed to rehab under [place] mental health law and has no charges that would result in a court ordered placement. I feel it is more timely that he attend his outpatient therapy appointment with the D&A counselor rather than delay to complete full 120 hrs and then have to reschedule. He is most likely to go leaving directly for the appointment from the hospital. He is expressing more consistent commitment to attend AA than previous stays and confirms he needs no prescriptions as still has rx's from last stay at home. Day of Discharge Assessment Today the patient voices readiness for discharge. They note improvement in mood and deny thoughts to harm self or others. Thoughts remain organized and they are improved from admission. There is no evidence of psychosis. They agree to take mediations as prescribed and keep follow-up appointments. They are stable for di scharge to outpatient level of care. Transition of Care Transition Of Care Record: was reviewed with the patient Advance Directives Advance Directives Information Provided: Yes Advance Directives: No Mental Health Advance Directive: No Advance Directives on File: No Living Will: No Power of Needle Setter: No Advance Directives Reason:: Declines as Mental Health Visit. Suicide Risk Level Suicide Risk Level Comments: Suicide risk at discharge is deemed low as the patient is no longer requiring 24-hr monitoring, has a safety plan, and is free of suicidal ideation at discharge. 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) Stable Relationships: Yes Supportive Family: Yes Tobacco Cessation at Discharge Tobacco Cessation Medication Prescribed at Discharge: Not Applicable/Non-Smoker Total Time Total Time Spent: Less Than 30 Minutes Total Time Includes: Discharge Planning and Medication Reconciliation Discharge Data Lab Results 07/12/22 07/12/22 07/12/22 21:37 21:37 21:37 WBC 6.99 RBC 5.12 Hgb 17.1 Hct 49.1 MCV 95.9 MCH 33.4 MCHC 34.8 RDW Std Deviation 45.3 RDW Coeff of Bryanna 12.7 Plt Count 231 MPV 10.5 Immature Gran % (Auto) 0.6 Neut % (Auto) 56.8 Lymph % (Auto) 33.3 Mcmullen % (Auto) 5.4 Eos % (Auto) 2.6 Baso % (Auto) 1.3 Neut # (Auto) 3.97 Lymph # (Auto) 2.33 Mcmullen # (Auto) 0.38 Eos # (Auto) 0.18 Baso # (Auto) 0.09 Immature Gran # (Auto) 0.04 H Sodium 144 Potassium 3.6 Chloride 106 Carbon Dioxide 23 Anion Gap 15 H BUN 9 Creatinine 0.89 Est Cr Clr Drug Dosing 143.0 Est GFR ( Amer) 132.1 Est GFR (Non-Af Amer) 113.9 BUN/Creatinine Ratio 10.1 Glucose 98 Calcium 9.1 Total Bilirubin 0.3 AST 41 H ALT 32 Alkaline Phosphatase 49 Total Protein 7.6 Albumin 4.6 Globulin 3.0 Albumin/Globulin Ratio 1.5 TSH 1.356 Urine Color Urine Appearance Urine pH Ur Specific [place] Urine Protein Urine Glucose (UA) Urine Ketones Urine Blood Urine Nitrite Urine Bilirubin Urine Urobilinogen Ur Leukocyte Esterase Urine WBC (Auto) Urine RBC (Auto) U Hyaline Cast (Auto) U Epithel Cells (Auto) Urine Bacteria (Auto) Salicylates Urine Opiates Screen Ur Methadone, Qual Acetaminophen Urine Barbiturates Ur Phencyclidine (PCP) U Amphetamin/Meth Scrn MDMA (Ecstasy) Screen U Benzodiazepines Scrn Ur Cocaine Metabolite U Marijuana (THC) Screen Ethyl Alcohol mg/dL SARS-CoV-2, RNA, NAAT 07/12/22 07/12/22 07/13/22 21:37 21:37 00:15 WBC RBC Hgb Hct MCV MCH MCHC RDW Std Deviation RDW Coeff of Bryanna Plt Count MPV Immature Gran % (Auto) Neut % (Auto) Lymph % (Auto) Mcmullen % (Auto) Eos % (Auto) Baso % (Auto) Neut # (Auto) Lymph # (Auto) Mcmullen # (Auto) Eos # (Auto) Baso # (Auto) Immature Gran # (Auto) Sodium Potassium Chloride Carbon Dioxide Anion Gap BUN Creatinine Est Cr Clr Drug Dosing Est GFR ( Amer) Est GFR (Non-Af Amer) BUN/Creatinine Ratio Glucose Calcium Total Bilirubin AST ALT Alkaline Phosphatase Total Protein Albumin Globulin Albumin/Globulin Ratio TSH Urine Color Yellow Urine Appearance Clear Urine pH 6.5 Ur Specific [place] 1.012 Urine Protein Trace H Urine Glucose (UA) Negative Urine Ketones Negative Urine Blood Negative Urine Nitrite Negative Urine Bilirubin Negative Urine Urobilinogen Negative Ur Leukocyte Esterase Trace H Urine WBC (Auto) 1-5 Urine RBC (Auto) 0-4 U Hyaline Cast (Auto) 1-5 U Epithel Cells (Auto) 5-10 H Urine Bacteria (Auto) Negative Salicylates < 3.0 L Urine Opiates Screen Ur Methadone, Qual Acetaminophen < 3 L Urine Barbiturates Ur Phencyclidine (PCP) U Amphetamin/Meth Scrn MDMA (Ecstasy) Screen U Benzodiazepines Scrn Ur Cocaine Metabolite U Marijuana (THC) Screen Ethyl Alcohol mg/dL 407.1 H SARS-CoV-2, RNA, NAAT 07/13/22 07/13/22 00:15 15:25 WBC RBC Hgb Hct MCV MCH MCHC RDW Std Deviation RDW Coeff of Bryanna Plt Count MPV Immature Gran % (Auto) Neut % (Auto) Lymph % (Auto) Mcmullen % (Auto) Eos % (Auto) Baso % (Auto) Neut # (Auto) Lymph # (Auto) Mcmullen # (Auto) Eos # (Auto) Baso # (Auto) Immature Gran # (Auto) Sodium Potassium Chloride Carbon Dioxide Anion Gap BUN Creatinine Est Cr Clr Drug Dosing Est GFR ( Amer) Est GFR (Non-Af Amer) BUN/Creatinine Ratio Glucose Calcium Total Bilirubin AST ALT Alkaline Phosphatase Total Protein Albumin Globulin Albumin/Globulin Ratio TSH Urine Color Urine Appearance Urine pH Ur Specific [place] Urine Protein Urine Glucose (UA) Urine Ketones Urine Blood Urine Nitrite Urine Bilirubin Urine Urobilinogen Ur Leukocyte Esterase Urine WBC (Auto) Urine RBC (Auto) U Hyaline Cast (Auto) U Epithel Cells (Auto) Urine Bacteria (Auto) Salicylates Urine Opiates Screen Neg Ur Methadone, Qual Neg Acetaminophen Urine Barbiturates Neg Ur Phencyclidine (PCP) Neg U Amphetamin/Meth Scrn Neg MDMA (Ecstasy) Screen Neg U Benzodiazepines Scrn Neg Ur Cocaine Metabolite Neg U Marijuana (THC) Screen Neg Ethyl Alcohol mg/dL SARS-CoV-2, RNA, NAAT NEGATIVE Hospital Course (1) Major depressive disorder, recurrent episode: (2) Post traumatic stress disorder (PTSD): (3) BRITTNY (generalized anxiety disorder): (4) Alcohol use disorder, severe, dependence: (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 07/15/22: continue current medication and treatment plan. 07/14/22: The patient was admitted to the [facility] ([facility]) on q15 min checks (behavioral with suicide precautions) for safety. The patient will participate in group, recreational, and milieu therapies and will be offered additional individual and family sessions as clinically appropriate. -Increase gabapentin to 100mg TID prn for anxiety -continue with gabapentin 300mg qhs -AWSS with ativan for scoring, thiamine and folic acid -restart naltrexone 25mg qd -continue CO regarding residential substance use tx Mental Health & Subst Abuse Tx Psychiatrist Name of Psychiatrist: Thomas Psychiatrist's Date of Appointment with Psychiatrist: 07/19/22 Time of Appointment with Psychiatrist: 08:15 Psychiatric Appointment Comment: [address] [place] [address] Therapist Name of Therapist: [facility] Therapist's Date of Therapist Appointment: 07/17/22 Time of Therapist Appointment: 8:30 AM [facility] App[facility]ment [facility] [address] [facility] [place] [address] Post Discharge Appointments Primary Care Physician Name Of Family Doctor: [facility] Primary Care Provider Appointment Comment: Follow up with PCP as needed. Smoking Cessation Counseling Tobacco Cessation Medication Prescribed at Discharge: Not Applicable/Non-Smoker Other #1: Name of Aftercare Appointment: [facility] Time of Aftercare Appointment: [email or web address]meetings Aftercare Appointment Comment: Please see printed list. Contact Information Discharge Discharge Address: [place] [address] Discharge Plan Discharge Items Patient Disposition: Home - Self-Care Reason For Visit: SUICIDAL IDEATION Discharge Diagnosis: major depressive disorder Activity: Resume your previous activity Non-emergency contact: Primary Care Provider, Psychiatrist and Therapist Call non-emergency contact if: you have any medication questions and your symptoms worsen Follow-up/Referrals: Bri Cervantes MD [Primary Care Provider] - Diet: Gluten Free and Lactose Intolerant Addtl Attending Provider Instructions: SPECIAL CARE INSTRUCTIONS: 1. Follow through with your scheduled aftercare appointments. If unable to keep an appointment, please call to reschedule. 2. Take your medication only as prescribed. Medication should not be changed or stopped without the approval of your doctor. In the event of worsening symptoms or concerns about side effects, contact your doctor immediately. 3. Utilize new healthy coping skills, anger management skills, and stress management skills learned during your hospitalization. Journal feelings and process them with a support person. Identify stressors or situations that may result in relapse, deterioration or inappropriate behaviors and develop a plan to deal with those issues. 4. If your coping skills are ineffective and you are in crisis, contact your outpatient providers for direction. If unable to reach your providers, please call the [facility] CRISIS LINE AT , go to the [facility] walk-in center at [address] [place] [address] [facility] or go to the closest Emergency Room. 5. Avoid alcohol and un-prescribed drugs. 6. You have been provided with the Mental Health Advance Directives Pamphlet for your review. 7. Your condition is stable for discharge to outpatient level of care, but recovery is an ongoing process. Ifthoughts to harm yourself or others return, follow the safety plan developed during your stay. Planning for a safe return home includes securing weapons. Our treatment team recommends weaponsbe removed from the home until your outpatient provider reassesses your progress. In rare cases where the items themselvescannot be removed, guns and ammunitionshould be secured separatelyand keys stored by a reliable personoutside of the home. If you were admitted on an involuntary commitment, the police or other legal authorities may be involved in this process. AFTERCARE APPOINTMENTS: * Please call your insurance company prior to your scheduled appointment to confirm your aftercare providers are covered. Take your insurance information to your appointments. WHO TO CALL AND WHEN: Medical Emergencies: For questions or emergencies related to your hospital stay, please contact the Inpatient Behavioral Health Unit at [phone]. A psychiatric therapist is on-call 14/05 for the Behavioral Health Unit for emergencies At any time you feel your situation is an emergency, you may also call 911 immediately. Pending Studies at Discharge: No Stand-Alone Forms: My [facility], Smoking Cessation Medications and DC Order Prescriptions: New naltrexone 50 mg Tablet 25 mg PO DAILY Qty: 1 0RF Continued fexofenadine 180 mg Tablet 180 mg PO QAM Qty: 1 0RF gabapentin 100 mg Capsule 100 mg PO BID PRN (Reason: anxiety) 30 Days Qty: 60 0RF gabapentin 300 mg Capsule 300 mg PO HS 30 Days Qty: 30 0RF folic acid 1 mg Tablet 1 mg PO QAM 30 Days Qty: 30 0RF Discharge Orders: Discharge Order (Routine); Ordered 07/17/22 Ordered By: Angie Carrillo Admission Data Admit Date/Time: 07/13/22 17:01 Attending Provider: Angie Carrillo Admit Provider: Vita Mackey Primary Care Provider: Bri Cervantes Other Interventions: Discharge Summary Assessment (RN) Last Done: 07/17/22 07:47 PSY Interdisciplinary Discharge Planning Last Done: 07/17/22 07:46 Coding Level of Care Code 31263 D/C day mgmt 30 min or < Diagnoses Major depressive disorder, recurrent episode F33.9 Post traumatic stress disorder (PTSD) F43.10 BRITTNY (generalized anxiety disorder) F41.1 Alcohol use disorder, severe, dependence F10.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
[2022-07-17] MEDS: THIAMINE HCL 100 MG TAB PO SCH (06:52)
[2022-07-17] MEDS: FOLIC ACID 1 MG TAB PO SCH (06:52)
[2022-07-17] MEDS: FEXOFENADINE HCL 180 MG TAB PO SCH (06:54)
[2022-07-17] MEDS: NALTREXONE HCL 50 MG TAB PO SCH (06:54)
[2022-07-17] MEDS: NICOTINE 21 MG/24 HR TDSY TD SCH (06:56)
[2022-07-17] MEDS: GABAPENTIN 100 MG CAP PO PRN (07:43)
== END 2022-07-17 08:03 | disposition home or self-care (01) | DRG 885 ==
LOC: ED 20:54 → SUATTDRO 07-13 17:01 → 3S 07-13 17:01

== ENCOUNTER 2022-09-10 18:31 | Inpatient (IN) ==
--- NOTE | 2022-09-10 18:46 | Emergency Department Note ---
Impression & Plan Depression, unspecified, Anxiety, Alcoholic intoxication ED Provider Note Name: MARYSOL RUTLEDGE Age: 32 Sex: M Arrives Via: Walk-In Informant: Patient, Case Management ED Provider: Peewee Geiger MD Chief Complaint: Mental Health Evaluation Impression: As Per Impressions Above Medical Decision Makin yr old male with long history of alcoholism and mental health disease. Patient with increase alcohol use the last 7 days. This evening brought in by friends as acting differently. Arrives a bit distant, intoxicated but in no distress. Denies suicidal/homicidal ideation. Medically clear other than intoxicated. Signed out to Dr Guzmán pending sobering up and repeat mental health evaluation. Prior Medical Record and Triage/Nursing Notes reviewed by Me Additional history obtained from chart Differentials:Mood disorder, infection, hypoglycemia, electrolyte abnormalities, cardiac sources, intracerebral event, toxicologic, trauma, neurologic, as well as other pathologies. Vital Signs: reviewed and remarkable for no significant abnormalities Labs:Reviewed and remarkable for no significant abnormalities Plan: Disposition: Discharged.Home. Referred to: PCP Condition: Good History of Present Illness:32-year-old male arrives for evaluation of alcohol intoxication. Patient states that he has been drinking for the last week due to his mother being ill and then dying 3 days ago. Patient believes he is very depressed and states he is very anxious. He denies any current thoughts of harming himself or others. He denies any hallucinations. He admits that he stopped taking his medications a week or 2 ago. Admits that he has been drinking every single day for the last 7 days. Denies any attempt at self-harm. No falls, trauma, injuries. Denies any other medical issues. ROS: See above HPI for pertinent positives & negatives. A total of 10 systems reviewed and were otherwise negative. Past Medical History:See Below Past Surgical History:See Below Family History:See Below Social History:See Below Home Medications:See Below Allergies:See Below Vitals:Blood Pressure: 144/86, Pulse 114, RR 18, T 37.0C, O2 97% on RA Physical Exam: GENERAL: Patient is intoxicated appearing and in minimal distress. With drawn/distant. EYES: No scleral icterus, unremarkable pupils. ENT: Mucous membranes moist, no nasal congestion. NECK: No masses appreciated, nomeningismus, trachea is midline. RESPIRATORY: No dyspnea. Clear to auscultation and equal bilaterally. No wheeze, no rhonchi. CARDIOVASCULAR: Tachy.No murmurs, rubs, gallops appreciated. GASTROINTESTINAL: Abdomen soft, non-tender, no peritonitis.Bowel sounds positive.No masses appreciated. BACK: No midline tenderness, no CVA tenderness EXTREMITIES: Normal motion all extremities, no cyanosis, no edema. NEUROLOGIC: Alert and oriented, no acute motor or sensory deficits, no focal weakness, cranial nerves grossly intact. SKIN: No rash, no jaundice, no diaphoresis. 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 Alcoholic hepatitis Anxiety and depression Chest pain Depressive disorder Diplopia Dizziness BRITTNY (generalized anxiety disorder) BRITTNY (generalized anxiety disorder) Headache Hypokalemia Lab test negative for COVID-19 virus Left leg cellulitis No pertinent family history Pain, dental Post traumatic stress disorder (PTSD) Self-harming behavior Suicidal behavior Suicidal ideation Surgical History No pertinent past surgical history Family History Other No significant family history Social History Smoking Status: Never smoker Tobacco Type: Cigarettes and E-cigarettes / Vaping Cigarettes Per Day: 1 PPD; Second Hand Exposure: No; Hx Alcohol Use: Yes Alcohol type: hard liquor Hx Substance Use: No Preferred Language: British Communication Ability: Effective Visual Impairment: No Limitations Hearing Ability: Normal Panel Lay Up Worker Required: No Beliefs That Will Affect Care: None marital status: Current Living Situation: Spouse current occupational status: employed Feels Safe at Home: Yes Childhood Exposure to Second-Hand Smoke: No Dental Care, Regularly: Yes Physical Activity Frequency: Daily Seatbelt Use: always Sunscreen Use: No Assistive Devices: Glasses Allergies Allergies Allergy/AdvReac Type Severity Reaction Status Date / Time bupropion [From Wellbutrin] AdvReac Severe anxiety, Verified 08/16/22 10:58 confussion buspirone [From BuSpar] AdvReac Intermediate Shaking/john Verified 08/16/22 10:58 mor gluten AdvReac Unknown Unknown Verified 08/16/22 10:58 milk AdvReac Unknown Unknown Verified 08/16/22 10:58 antihistamines AdvReac Intermediate "Just Uncoded 08/16/22 10:58 Don't Feel Right When I Take Them" Home Meds Home Medications Medication Instructions Recorded Confirmed fexofenadine 180 mg tablet 180 mg PO QAM PRN Other 07/27/22 09/10/22 clonidine HCl 0.1 mg tablet 0.1 mg PO 2XD 09/10/22 09/10/22 Previous Rx's Medication Instructions Recorded gabapentin 300 mg capsule 300 mg PO TID alcohol use disorder 08/22/22 30 days #90 caps pantoprazole 40 mg tablet,delayed 40 mg PO QAM GERD 30 days #30 tabs 08/22/22 release Results & Data (ED) Vital Signs Vital Signs - 24 hr 09/10/22 18:34 09/10/22 21:20 09/10/22 23:18 Temperature 37.0 C Temperature Source Oral Pulse Rate 114 H Pulse Rate [Finger] 81 72 Pulse Rhythm Regular Pulse Strength Normal Respiratory Rate 18 18 20 Respiratory Effort / Characteristics Non-Labored Spontaneous Respiratory Depth Normal Respiratory Pattern Regular Blood Pressure 144/86 H Blood Pressure [Left Arm] 125/78 112/50 L Blood Pressure Mean 105 Blood Pressure Mean [Left Arm] 93 70 Blood Pressure Position Sitting Blood Pressure Position [Left Arm] Lying Pulse Oximetry 97 95 99 Oxygen Delivery Method Room Air Room Air Room Air Sepsis Recent Fever Within 48 Hours No Sepsis New/Unexplained Change in Mental Status No Sepsis Action Taken by Nursing No Action Required Laboratory Data Result diagrams: 09/10/22 19:22 09/10/22 19:22 Lab Results 09/10/22 09/10/22 09/10/22 Range/Units 19:00 19:00 19:14 WBC (4.8-10.8) K/ul RBC (4.63-6.08) M/uL Hgb (14.0-18.0) g/dl Hct (40.1-51.0) % MCV (80.0-100.0) fL MCH (25.0-34.0) pg MCHC (32.0-36.0) g/dL RDW Std Deviation (36.4-46.3) fL RDW Coeff of Bryanna (11.5-14.5) % Plt Count (130-400) K/uL MPV (9.4-12.4) fL Immature Gran % (Auto) % Neut % (Auto) % Lymph % (Auto) % [place] % (Auto) % Eos % (Auto) % Baso % (Auto) % Neut # (Auto) (1.4-6.5) K/uL Lymph # (Auto) (1.2-3.4) K/uL [place] # (Auto) (0.24-0.82) K/uL Eos # (Auto) (0-0.50) K/uL Baso # (Auto) (0-0.2) K/uL Immature Gran # (Auto) (0.00-0.02) K/uL Sodium (136-145) mmol/L Potassium (3.5-5.1) mmol/L Chloride (98-107) mmol/L Carbon Dioxide (21-32) mmol/L Anion Gap (3-11) BUN (6-23) mg/dl Creatinine (0.6-1.4) mg/dl Est Cr Clr Drug Dosing ml/min Est GFR ( Amer) ml/min Est GFR (Non-Af Amer) ml/min BUN/Creatinine Ratio (10-20) Glucose (70-99(Fasting)) mg/dl Calcium (8.5-10.1) mg/dl Total Bilirubin (0.2-1.0) mg/dl AST (13-39) U/L ALT (7-52) U/L Alkaline Phosphatase (34-104) U/L Total Protein (6.0-8.3) gm/dl Albumin (3.4-5.0) gm/dl Globulin (2.5-4.0) gm/dl Albumin/Globulin Ratio (0.9-2) TSH (0.300-4.500) uIu/ml Urine Color Yellow Urine Appearance Clear (Clear) Urine pH 7.0 (4.5-7.5) Ur Specific [place] 1.004 (1.000-1.030) Urine Protein Negative (Negative) Urine Glucose (UA) Negative (Negative) Urine Ketones Negative (Negative) Urine Blood Negative (Negative) Urine Nitrite Negative (Negative) Urine Bilirubin Negative (Negative) Urine Urobilinogen Negative (Negative) Ur Leukocyte Esterase Negative (Negative) Salicylates (3.0-30) mg/dl Urine Opiates Screen Neg (Neg) Ur Methadone, Qual Neg (Neg) Acetaminophen (10-30) ug/ml Urine Barbiturates Neg (Neg) Ur Phencyclidine (PCP) Neg (Neg) U Amphetamin/Meth Scrn Neg (Neg) MDMA (Ecstasy) Screen Neg (Neg) U Benzodiazepines Scrn Neg (Neg) Ur Cocaine Metabolite Neg (Neg) U Marijuana (THC) Screen Neg (Neg) Ethyl Alcohol mg/dL (<10.0) mg/dl SARS-CoV-2, RNA, NAAT NEGATIVE (NEGATIVE) 09/10/22 09/10/22 09/10/22 Range/Units 19:22 19:22 19:22 WBC 6.70 (4.8-10.8) K/ul RBC 5.05 (4.63-6.08) M/uL Hgb 17.0 (14.0-18.0) g/dl Hct 47.4 (40.1-51.0) % MCV 93.9 (80.0-100.0) fL MCH 33.7 (25.0-34.0) pg MCHC 35.9 (32.0-36.0) g/dL RDW Std Deviation 41.2 (36.4-46.3) fL RDW Coeff of Bryanna 11.9 (11.5-14.5) % Plt Count 365 (130-400) K/uL MPV 10.2 (9.4-12.4) fL Immature Gran % (Auto) 0.1 % Neut % (Auto) 62.2 % Lymph % (Auto) 31.0 % [place] % (Auto) 4.9 % Eos % (Auto) 0.6 % Baso % (Auto) 1.2 % Neut # (Auto) 4.16 (1.4-6.5) K/uL Lymph # (Auto) 2.08 (1.2-3.4) K/uL [place] # (Auto) 0.33 (0.24-0.82) K/uL Eos # (Auto) 0.04 (0-0.50) K/uL Baso # (Auto) 0.08 (0-0.2) K/uL Immature Gran # (Auto) 0.01 (0.00-0.02) K/uL Sodium 140 (136-145) mmol/L Potassium 3.9 (3.5-5.1) mmol/L Chloride 101 (98-107) mmol/L Carbon Dioxide 26 (21-32) mmol/L Anion Gap 13 H (3-11) BUN 9 (6-23) mg/dl Creatinine 0.93 (0.6-1.4) mg/dl Est Cr Clr Drug Dosing 126.3 ml/min Est GFR ( Amer) 126.3 ml/min Est GFR (Non-Af Amer) 109.0 ml/min BUN/Creatinine Ratio 9.7 L (10-20) Glucose 98 (70-99(Fasting)) mg/dl Calcium 9.3 (8.5-10.1) mg/dl Total Bilirubin 0.4 (0.2-1.0) mg/dl AST 37 (13-39) U/L ALT 26 (7-52) U/L Alkaline Phosphatase 53 (34-104) U/L Total Protein 8.0 (6.0-8.3) gm/dl Albumin 4.8 (3.4-5.0) gm/dl Globulin 3.2 (2.5-4.0) gm/dl Albumin/Globulin Ratio 1.5 (0.9-2) TSH 1.378 (0.300-4.500) uIu/ml Urine Color Urine Appearance (Clear) Urine pH (4.5-7.5) Ur Specific [place] (1.000-1.030) Urine Protein (Negative) Urine Glucose (UA) (Negative) Urine Ketones (Negative) Urine Blood (Negative) Urine Nitrite (Negative) Urine Bilirubin (Negative) Urine Urobilinogen (Negative) Ur Leukocyte Esterase (Negative) Salicylates (3.0-30) mg/dl Urine Opiates Screen (Neg) Ur Methadone, Qual (Neg) Acetaminophen (10-30) ug/ml Urine Barbiturates (Neg) Ur Phencyclidine (PCP) (Neg) U Amphetamin/Meth Scrn (Neg) MDMA (Ecstasy) Screen (Neg) U Benzodiazepines Scrn (Neg) Ur Cocaine Metabolite (Neg) U Marijuana (THC) Screen (Neg) Ethyl Alcohol mg/dL (<10.0) mg/dl SARS-CoV-2, RNA, NAAT (NEGATIVE) 09/10/22 09/10/22 Range/Units 19:22 19:22 WBC (4.8-10.8) K/ul RBC (4.63-6.08) M/uL Hgb (14.0-18.0) g/dl Hct (40.1-51.0) % MCV (80.0-100.0) fL MCH (25.0-34.0) pg MCHC (32.0-36.0) g/dL RDW Std Deviation (36.4-46.3) fL RDW Coeff of Bryanna (11.5-14.5) % Plt Count (130-400) K/uL MPV (9.4-12.4) fL Immature Gran % (Auto) % Neut % (Auto) % Lymph % (Auto) % [place] % (Auto) % Eos % (Auto) % Baso % (Auto) % Neut # (Auto) (1.4-6.5) K/uL Lymph # (Auto) (1.2-3.4) K/uL [place] # (Auto) (0.24-0.82) K/uL Eos # (Auto) (0-0.50) K/uL Baso # (Auto) (0-0.2) K/uL Immature Gran # (Auto) (0.00-0.02) K/uL Sodium (136-145) mmol/L Potassium (3.5-5.1) mmol/L Chloride (98-107) mmol/L Carbon Dioxide (21-32) mmol/L Anion Gap (3-11) BUN (6-23) mg/dl Creatinine (0.6-1.4) mg/dl Est Cr Clr Drug Dosing ml/min Est GFR ( Amer) ml/min Est GFR (Non-Af Amer) ml/min BUN/Creatinine Ratio (10-20) Glucose (70-99(Fasting)) mg/dl Calcium (8.5-10.1) mg/dl Total Bilirubin (0.2-1.0) mg/dl AST (13-39) U/L ALT (7-52) U/L Alkaline Phosphatase (34-104) U/L Total Protein (6.0-8.3) gm/dl Albumin (3.4-5.0) gm/dl Globulin (2.5-4.0) gm/dl Albumin/Globulin Ratio (0.9-2) TSH (0.300-4.500) uIu/ml Urine Color Urine Appearance (Clear) Urine pH (4.5-7.5) Ur Specific [place] (1.000-1.030) Urine Protein (Negative) Urine Glucose (UA) (Negative) Urine Ketones (Negative) Urine Blood (Negative) Urine Nitrite (Negative) Urine Bilirubin (Negative) Urine Urobilinogen (Negative) Ur Leukocyte Esterase (Negative) Salicylates < 3.0 L (3.0-30) mg/dl Urine Opiates Screen (Neg) Ur Methadone, Qual (Neg) Acetaminophen < 3 L (10-30) ug/ml Urine Barbiturates (Neg) Ur Phencyclidine (PCP) (Neg) U Amphetamin/Meth Scrn (Neg) MDMA (Ecstasy) Screen (Neg) U Benzodiazepines Scrn (Neg) Ur Cocaine Metabolite (Neg) U Marijuana (THC) Screen (Neg) Ethyl Alcohol mg/dL 277.0 H (<10.0) mg/dl SARS-CoV-2, RNA, NAAT (NEGATIVE) Discharge Plan Visit Data Chief Complaint: Mental Health Evaluation Stated Complaint: MENTAL HEALTH EVAULATION ED Provider: Peewee Geiger Discharge Problem: Depression, unspecified, Anxiety, Alcoholic intoxication Forms Stand Alone Forms: My [facility], Suicide Prevention Resources Prescriptions Prescriptions: No Action clonidine HCl 0.1 mg tablet 0.1 mg PO 2XD fexofenadine 180 mg tablet 180 mg PO QAM PRN (Reason: Other) Rx Instructions: Take as needed for seasonal allergies gabapentin 300 mg Capsule 300 mg PO TID 30 Days Qty: 90 0RF pantoprazole 40 mg Tablet,Delayed Release (Dr/Ec) 40 mg PO QAM 30 Days Qty: 30 0RF Referrals Referrals: Bri Cervantes MD [Primary Care Provider] - : Depression, unspecified Qualifiers: Depression Type: major depressive disorder Major depression recurrence: recurrent Active/Remission status: currently active Major depression episode severity: moderate Qualified Code(s): F33.1 - Major depressive disorder, recurrent, moderate Alcoholic intoxication Qualifiers: Complication of substance-induced condition: uncomplicated Qualified Code(s): F10.920 - Alcohol use, unspecified with intoxication, uncomplicated
[2022-09-10 19:18] LABS: Appearance Urine Clear (Clear); Bilirubin Urine Negative (Negative); Blood Urine Negative (Negative); Color Urine Yellow; Glucose Urine UA Negative (Negative); Ketones Urine Negative (Negative); Leukocyte Esterase Urine Negative (Negative); Nitrite Urine Negative (Negative); Protein Urine Negative (Negative); Specific Gravity Urine 1.004 (1.000-1.030); Urobilinogen Urine Negative (Negative)
[2022-09-10 19:43] LABS: Basophils # (auto) 0.08 K/uL (0-0.2); Basophils % (auto) 1.2 %; Eosinophils # (auto) 0.04 K/uL (0-0.50); Eosinophils % (auto) 0.6 %; Hematocrit (blood only) 47.4 % (40.1-51.0); Immature Granulocytes # (auto) 0.01 K/uL (0.00-0.02); Immature Granulocytes % (auto) 0.1 %; Lymphocytes # (auto) 2.08 K/uL (1.2-3.4); Mean Corpuscular Hemoglobin 33.7 pg (25.0-34.0); Mean Corpuscular Hgb Conc 35.9 g/dL (32.0-36.0); Mean Corpuscular Volume 93.9 fL (80.0-100.0); Mean Platelet Volume 10.2 fL (9.4-12.4); Monocytes # (auto) 0.33 K/uL (0.24-0.82); Monocytes % (auto) 4.9 %; Neutrophils # (auto) 4.16 K/uL (1.4-6.5); Neutrophils % (auto) 62.2 %; Platelet Count 365 K/uL (130-400); RDW Coefficient of Variation 11.9 % (11.5-14.5); RDW Standard Deviation 41.2 fL (36.4-46.3); Red Blood Count 5.05 M/uL (4.63-6.08)
[2022-09-10 19:54] LABS: Amphetamines+Metham, Urine Neg (Neg); Barbiturates, Urine Neg (Neg); Benzodiazepine, Urine Neg (Neg); Cocaine, Urine Neg (Neg); MDMA (Ecstacy), Urine Neg (Neg); Methadone, Urine Neg (Neg); Opiate, Urine Neg (Neg); Phencyclidine, Urine Neg (Neg)
[2022-09-10 20:03] LABS: Acetaminophen < 3 ug/ml (10-30); Albumin Globulin Ratio 1.5 (0.9-2); Albumin Level 4.8 gm/dl (3.4-5.0); BUN Creatinine Ratio 9.7 (10-20); Bilirubin,Total 0.4 mg/dl (0.2-1.0); Calcium 9.3 mg/dl (8.5-10.1); Creatinine Clr Calc Pharmacy 126.3 ml/min; Est GFR (African American) 126.3 ml/min; Globulin 3.2 gm/dl (2.5-4.0); Potassium 3.9 mmol/L (3.5-5.1); Salicylate < 3.0 mg/dl (3.0-30)
[2022-09-11] MEDS ORDERED: MULTI-VITAMIN INFUSION 10 ML, THIAMINE HCL 100 MG, FOLIC ACID 1 MG in SODIUM CHLORIDE 0... IV ONE (04:13)
[2022-09-11] MEDS ORDERED: SODIUM CHLORIDE 0.9% 1000ML 1,000 ML IV ONE (04:13)
[2022-09-11] MEDS ORDERED: PHENobarbital sodium 130 MG/ML VIAL IV STA (06:27)
--- NOTE | 2022-09-11 06:31 | Emergency Department Note ---
ED Visit Note Patient signed out to me at change of shift from Dr. Geiger. Patient well- known to the emergency department and here frequently secondary to alcohol abuse. Patient was sobering up for mental health evaluation at time of signout. As patient sobered he began to show more evidence of alcohol withdrawal. Patient has previously been admitted for severe alcohol withdrawal symptoms. IV Valium was ordered including IV fluids and banana bag. Patient was reevaluated by mental health and given recent of his mother admits to increased depres doreen and suicidal ideation. Given history of significant alcohol withdrawal symptoms, we discussed medical admission with psychiatric consultation. Case discussed with Dr. Moss, [facility] service. . : Depression, unspecified Qualifiers: Depression Type: major depressive disorder Major depression recurrence: recurrent Active/Remission status: currently active Major depression episode severity: moderate Qualified Code(s): F33.1 - Major depressive disorder, recurrent, moderate Alcoholic intoxication Qualifiers: Complication of substance-induced condition: uncomplicated Qualified Code(s): F10.920 - Alcohol use, unspecified with intoxication, uncomplicated
--- NOTE | 2022-09-11 06:42 | History & Physical Report ---
Date of Service September 11, 2022 Assessment & Plan (1) Alcohol abuse with withdrawal: Plan: Some question to me of if he could actually withdrawal or not as he reports being sober for 17 days, and only drinking for about 6 days. In any event, good candidate for phenobarbital as patient has no underlying cirrhosis. Phenobarb load ordered in the ER. * Phenobarbital 90 mg PO TID for today (clear instructions in labelling to hold for RASS < -1) * Phenobarbital 60 mg PO TID for tomorrow * Phenobarbital 30 mg PO TID for Sunday -> Low dose Ativan scale given, but he could also receive additional PO dose if RUT scores start to increase. - Vitamin repletion (2) Major depressive disorder, recurrent episode: Plan: With several episodes of SI. Reports he would not "feel safe" at home, but denies HI. - Suicide precautions - Psych consulted (3) Anxiety: Plan: Reason for drinking. - Psych as above (4) DVT prophylaxis: Plan: Lovenox FULL CODE History of Present Illness Primary Care Provider: Bri Cervantes MD 32-year-old male with history of alcohol abuse who presents with alcohol withdrawal and suicidal ideation. The patient's mother recently , and this is caused the patient to spiral in terms of his alcohol intake. He had been sober for 17 days, but started drinking about 6 days ago when his mother . He reports drinking approximately 1-1/2 fifths of liquor per day. He has not had any prior alcohol withdrawal seizures that he is aware of. The ER provider notes that he made some vague references to suicidal ideation and having a plan. For me he reports he would not feel "safe" at home, but denies any active suicidal intent or homicidal intent. The patient presently is tremulous, tachycardic, and anxious. He has received several doses of IV diazepam in the ER, and the ER provider calls with request for admission for alcohol withdrawal. Allergies Allergy/AdvReac Type Severity Reaction Status Date / Time bupropion [From Wellbutrin] AdvReac Severe anxiety, Verified 08/16/22 10:58 confussion buspirone [From BuSpar] AdvReac Intermediate Shaking/john Verified 08/16/22 10:58 mor gluten AdvReac Unknown Unknown Verified 08/16/22 10:58 milk AdvReac Unknown Unknown Verified 08/16/22 10:58 antihistamines AdvReac Intermediate "Just Uncoded 08/16/22 10:58 Don't Feel Right When I Take Them" Home Medications Medication Instructions Recorded Confirmed Type fexofenadine 180 mg tablet 180 mg PO QAM PRN Other 07/27/22 09/10/22 History gabapentin 300 mg capsule 300 mg PO TID alcohol use disorder 08/22/22 09/10/22 Rx 30 days #90 caps pantoprazole 40 mg tablet,delayed 40 mg PO QAM GERD 30 days #30 tabs 08/22/22 09/10/22 Rx release clonidine HCl 0.1 mg tablet 0.1 mg PO 2XD 09/10/22 09/10/22 History 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 Alcoholic hepatitis Anxiety and depression Anxiety disorder, unspecified Chest pain Depression with suicidal ideation Depressive disorder Diplopia Dizziness Elevated liver enzymes BRITTNY (generalized anxiety disorder) BRITTNY (generalized anxiety disorder) Headache Homicidal ideation Hypokalemia Lab test negative for COVID-19 virus Left leg cellulitis No pertinent family history Pain, dental Post traumatic stress disorder (PTSD) Post traumatic stress disorder (PTSD) Self-harming behavior Suicidal behavior Suicidal ideation Tobacco abuse Surgical History No pertinent past surgical history Family History Other No significant family history Social History Smoking Status: Never smoker Tobacco Type: Cigarettes and E-cigarettes / Vaping Cigarettes Per Day: 1 PPD; Second Hand Exposure: No; Hx Alcohol Use: Yes Alcohol type: hard liquor Hx Substance Use: No Preferred Language: Grenadian Communication Ability: Effective Visual Impairment: No Limitations Hearing Ability: Normal Chain Machine Operator Required: No Beliefs That Will Affect Care: None marital status: Current Living Situation: Spouse current occupational status: employed Feels Safe at Home: Yes Childhood Exposure to Second-Hand Smoke: No Dental Care, Regularly: Yes Physical Activity Frequency: Daily Seatbelt Use: always Sunscreen Use: No Assistive Devices: Glasses Review of Systems Review of Systems: All systems reviewed & are unremarkable except as noted in HPI & below Physical Exam Constitutional: WD/WN, vitals as above + acute distress Eyes: EOM intact bilaterally; no conjunctival abnormality ENMT: external ear and nose normal, oropharynx normal Neck: trachea midline, no thyromegaly normal visual inspection Respiratory: normal respiratory effort, lungs clear to auscultation no respiratory distress Cardiovascular: Rate/Rhythm: regular rhythm and + tachycardic Gastrointestinal (Abdomen): Inspection/Auscultation: abdomen normal to inspection; abdomen not distended Musculoskeletal: no cyanosis or clubbing, extremities motor strength 5/5 Skin: no rashes, warm and dry Neurologic: moves all extremities and awake Tremulous Psychiatric: Orientation: alert, oriented to person and cooperative Results & Data Results & Data ([facility]) Vital Signs (Past 12 Hours) Vital Signs Temp Pulse Resp BP Pulse Ox O2 Del Method 09/11/22 05:00 127/83 09/11/22 03:00 37.3 C 106 H 24 89/70 L 95 Room Air 09/10/22 23:18 72 20 112/50 L 99 Room Air 09/10/22 21:20 81 18 125/78 95 Room Air Code Status & VTE Plan VTE Prophylaxis Plan VTE Prophylaxis will be ordered: Yes PG Care Time/CCT Total # of Minutes Spent Total Time Spent with Patient: Total time spent is greater than 50% in coordination of care (as documented) at patient's floor/unit and/or counseling patient: Coding Level of Care Code 26048 Initial Inpt Care Lvl 3 Diagnoses Alcohol abuse with withdrawal F10.139 Major depressive disorder, recurrent episode F33.9 Anxiety F41.9 DVT prophylaxis Z29.9
[2022-09-11] MEDS ORDERED: LORazepam 1 MG in SYRINGE 0 ML IV PRN (08:45)
[2022-09-11] MEDS ORDERED: Ativan IV Alcohol Withdrawal--Active Protocol IV PRN (08:45)
[2022-09-11] MEDS ORDERED: LORazepam 2 MG in SYRINGE 0 ML IV PRN (08:45)
[2022-09-11] MEDS ORDERED: ONDANSETRON INJ 2 MG/ML 2 ML VIAL IV PRN (08:45)
[2022-09-11] MEDS ORDERED: LORazepam 0.5 MG in SYRINGE 0 ML IV PRN (08:45)
[2022-09-11] MEDS ORDERED: ACETAMINOPHEN 325 MG TAB PO PRN (08:45)
[2022-09-11] MEDS: PANTOprazole 40 MG TAB PO SCH (10:05)
[2022-09-11] MEDS: FOLIC ACID 1 MG in SYRINGE 9.8 ML IV SCH (10:06)
[2022-09-11] MEDS: ENOXAPARIN INJ 40 MG/0.4 ML SYR SQ SCH (11:43)
[2022-09-11] MEDS: THIAMINE HCL 100 MG TAB PO SCH (11:43)
[2022-09-11] MEDS: PHENobarbitaL 30 MG TAB PO SCH ×3 (11:43→20:46)
--- NOTE | 2022-09-11 12:39 | Communication Note ---
Date of Service: September 11, 2022 patient well known to me from multiple contacts on med floor and inpatient unit. Patient [facility] go [facility] stay but left after 1 day. Longest period of sobriety is 17 days but relapse when mother passed. Liaison saw patient and he is having difficulty organizing his thoughts as early withdrawal/phenobarb loaded. Will complete full consult as MS clears. There is currently no 302 warrant but I'd advise against patient leaving AMA. Please notify service to assist in process to obtain a warrant if attempts to leave before medically cleared.
--- NOTE | 2022-09-12 07:18 | History & Physical Bridge Note ---
Date of Service September 11, 2022 History & Physical Bridge Note I have examined the patient, reviewed the History & Physical and in the interval since the performance of the History & Physical I have noted the following changes of clinical significance: no changes noted Patient seen in the evening on 09/11. He is no complaints, no tremors, no hallucinations although reports he did have these earlier in the day. He is eating and drinking. Has no other questions or concerns. Vitals reviewed Gen: AAOx3, NAD HEENT: Anicteric sclerae, EOMI CV: RRR no mgr nl S1S2 Pulm: CTAB no wcr Abd: +BS soft NT ND no masses or hernias Ext: No edema Skin: No rashes, warm/dry Neuro: Full strength throughout, no tremor 32-year-old male with alcohol use disorder here with alcohol intoxication, at risk for withdrawal, possible SI. Appreciate psychiatry involvement Continue phenobarbital taper and monitor vitals, blood work
[2022-09-12] MEDS: THIAMINE HCL 100 MG TAB PO SCH (08:13)
[2022-09-12] MEDS: PANTOprazole 40 MG TAB PO SCH (08:13)
[2022-09-12] MEDS: ENOXAPARIN INJ 40 MG/0.4 ML SYR SQ SCH (08:13)
[2022-09-12] MEDS: FOLIC ACID 1 MG in SYRINGE 9.8 ML IV SCH (08:13)
[2022-09-12] MEDS: PHENobarbitaL 30 MG TAB PO SCH ×3 (08:24→20:18)
[2022-09-12 08:39] LABS: Hematocrit (blood only) 45.8 % (40.1-51.0); Hemoglobin 15.6 g/dl (14.0-18.0); Mean Corpuscular Hemoglobin 33.2 pg (25.0-34.0); Mean Corpuscular Hgb Conc 34.1 g/dL (32.0-36.0); Mean Corpuscular Volume 97.4 fL (80.0-100.0); Mean Platelet Volume 10.3 fL (9.4-12.4); Platelet Count 252 K/uL (130-400); RDW Coefficient of Variation 11.9 % (11.5-14.5); RDW Standard Deviation 42.8 fL (36.4-46.3); White Blood Count 5.52 K/ul (4.8-10.8)
[2022-09-12 09:05] LABS: Albumin Globulin Ratio 1.5 (0.9-2); Albumin Level 4.1 gm/dl (3.4-5.0); BUN Creatinine Ratio 10.3 (10-20); Bilirubin,Total 0.9 mg/dl (0.2-1.0); Calcium 9.3 mg/dl (8.5-10.1); Creatinine Clr Calc Pharmacy 146.1 ml/min; Est GFR (African American) 139.4 ml/min; Est GFR (Non-African American) 120.3 ml/min; Globulin 2.7 gm/dl (2.5-4.0); Potassium 4.4 mmol/L (3.5-5.1); Total Protein 6.8 gm/dl (6.0-8.3)
--- NOTE | 2022-09-12 13:45 | Psychiatric Consultation ---
Date of Consultation September 12, 2022 Impression / Recommendations Impression 32 yo male, high risk for suicide given severe recurrent substance abuse, no access to guns given past 302 and police involvement, presents with relapse following of mother, marital issues. (1) Alcohol abuse with withdrawal: (2) Depression, unspecified: Active/Remission status: currently active Depression Type: major depressive disorder Major depression episode severity: moderate Major depression recurrence: recurrent Qualified Code(s): F33.1 - Major depressive disorder, recurrent, moderate Plan continue [facility] detox, if patient attempts to leave AMA would pursue 302 warrant as does need safety planning regardless of next steps need to wait until closer to medical clearance to fully determine if any indication for acute inpatient psych, the main focus should be rehab inpatient rehab for severe ETOH dependence is recommended Psych History Identifying Data 32 yo male well known to our service. Readmission for alcohol detox/withdrawal and was initially ambivalent about [facility] for safety so was placed on 1-on-1. Chief Complaint "I guess I feel like I can't concentrate or something, like my brain is messed up". History of Present Illness as per communication note yesterday: patient well known to me from multiple contacts on med floor and inpatient unit. Patient [place] go [place] program last stay but left after 1 day. Longest period of sobriety is 17 days but relapse when mother passed. Liaison saw patient and he is having difficulty organizing his thoughts as early withdrawal/phenobarb loaded. Will complete full consult as MS weaver. There is currently no 302 warrant but I'd advise against patient leaving AMA. Please notify service to assist in process to obtain a warrant if attempts to leave before medically cleared. Patient's COSME was 277 this admit, last stay 3S admission 08/21/[address] Mackey for COSME 413. He was discharged to [facility] on gabapentin and naltrexone. Past Psychiatric History Previous Psych History: Reviewed presentations to the hospital since 2021: 11/23/2021: medical admission for alcohol withdrawal 12/03/2021: ED presentation for alcohol intoxication 01/02/2022: medical admission to ICU for alcohol withdrawal 01/30/2022: ED presentation for alcohol intoxication 02/24/2022: ED presentation for alcohol intoxication and head trauma from drinking 03/07/22: ED presentation for alcohol intoxication and head trauma from drinking 04/09/2022: medical admission for alcohol withdrawal 06/07/2022: ED presentation for alcohol intoxication 06/19/2022: ED presentation for alcohol intoxication 06/21/2022 - 06/24/2022: medical admission for alcohol intoxication 06/25/2022 - 06/30/2022: inpatient psychiatry admission [facility] for alcohol use and depression/ anxiety HEALTH INFORMATION MANAGEMENT Health Information Management [id number] Additional copy Printed: 013 Patient name: MARYSOL RUTLEDGE : 1990 07/13/2022 - 07/17/2022: inpatient psychiatry admission [facility] for alcohol use and depression/ anxiety 07/26/2022: ED presentation for alcohol intoxication and transferred to [facility] inpatient psychiatry 08/12/2022: ED presentation for alcohol intoxication 08/18/2022: medical admission for alcohol withdrawal History of Previous Suicide Attempt: No (but has threatened and did cut wrist while intoxicated) Past Medication Trials: mirtazapine (didn't work), Wellbutrin, gabapentin, lexapro (recalls being very anxious), Librium (the best one that helped me with everything, helped me be the most level with stopping alcohol), naltrexone Allergies Allergy/AdvReac Type Severity Reaction Status Date / Time bupropion [From Wellbutrin] AdvReac Severe anxiety, Verified 08/16/22 10:58 confussion buspirone [From BuSpar] AdvReac Intermediate Shaking/john Verified 08/16/22 10:58 mor gluten AdvReac Unknown Unknown Verified 08/16/22 10:58 milk AdvReac Unknown Unknown Verified 08/16/22 10:58 antihistamines AdvReac Intermediate "Just Uncoded 08/16/22 10:58 Don't Feel Right When I Take Them" Home Medications Medication Instructions Recorded Confirmed Type fexofenadine 180 mg tablet 180 mg PO QAM PRN Other 07/27/22 09/10/22 History gabapentin 300 mg capsule 300 mg PO TID alcohol use disorder 08/22/22 09/10/22 Rx 30 days #90 caps pantoprazole 40 mg tablet,delayed 40 mg PO QAM GERD 30 days #30 tabs 08/22/22 09/10/22 Rx release clonidine HCl 0.1 mg tablet 0.1 mg PO 2XD 09/10/22 09/10/22 History Family History mother with mood disorder Personal History Beliefs That Will Affect Care: None Additional Comments: , often stays with other family to provide babysitting and due to their volatile relationship/co-dependence in substance abuse. 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 Alcoholic hepatitis Anxiety and depression Anxiety disorder, unspecified Chest pain Depression with suicidal ideation Depressive disorder Diplopia Dizziness Elevated liver enzymes BRITTNY (generalized anxiety disorder) BRITTNY (generalized anxiety disorder) Headache Homicidal ideation Hypokalemia Lab test negative for COVID-19 virus Left leg cellulitis No pertinent family history Pain, dental Post traumatic stress disorder (PTSD) Post traumatic stress disorder (PTSD) Self-harming behavior Suicidal behavior Suicidal ideation Tobacco abuse Surgical History No pertinent past surgical history Family History Other No significant family history Social History Smoking Status: Unknown if ever smoked Tobacco Type: Cigarettes and E-cigarettes / Vaping Cigarettes Per Day: 1 PPD; Second Hand Exposure: No; Hx Alcohol Use: Yes Alcohol type: beer Hx Substance Use: No Preferred Language: Swazi Communication Ability: Effective Visual Impairment: No Limitations Hearing Ability: Normal Fuel Dock Attendant Required: No Beliefs That Will Affect Care: None marital status: Current Living Situation: Family Current Living Situation Comment: Lives with Brother. Recently moved out of house. current occupational status: employed Feels Safe at Home: Declines to Answer Childhood Exposure to Second-Hand Smoke: No Dental Care, Regularly: Yes Physical Activity Frequency: Daily Seatbelt Use: always Sunscreen Use: No Assistive Devices: None Physical Exam Psychiatric: Orientation: alert Apperance: appropriately groomed Eye Co ntact: + fair eye contact Motor Behavior: no abnormal motor movements Speech: normal rate/rhythm/volume of speech Affect: + depressed affect Mood: + depressed mood Thought Process: + concrete thought process Thought Content: no delusions Suicidal Thoughts: denies suicidal thoughts (but unable to safety plan) Homicidal Thoughts: denies homicidal thoughts H allucinations: no auditory hallucinations and no visual hallucinations Cognition: language grossly intact; + attention not intact Estimated Intell igence: consistent with education level Insight: + poor insight Judgement: + poor judgement Vital Signs (Past 24 Hours): Last Vital Signs Temp 36.3 C L 09/12/22 11:15 Pulse 65 09/12/22 11:15 Resp 16 09/12/22 11:15 BP 120/71 09/12/22 11:15 Pulse Ox 96 09/12/22 11:15 O2 Del Method 09/12/22 11:15 Review of Systems All systems reviewed & are unremarkable except as noted in HPI & below (minimal tremor) Results & Data (PSY) Laboratory Results 09/12/22 09/12/22 Range/Units 08:24 08:24 WBC 5.52 (4.8-10.8) K/ul RBC 4.70 (4.63-6.08) M/uL Hgb 15.6 (14.0-18.0) g/dl Hct 45.8 (40.1-51.0) % MCV 97.4 (80.0-100.0) fL MCH 33.2 (25.0-34.0) pg MCHC 34.1 (32.0-36.0) g/dL RDW Std Deviation 42.8 (36.4-46.3) fL RDW Coeff of Bryanna 11.9 (11.5-14.5) % Plt Count 252 (130-400) K/uL MPV 10.3 (9.4-12.4) fL Sodium 139 (136-145) mmol/L Potassium 4.4 (3.5-5.1) mmol/L Chloride 104 (98-107) mmol/L Carbon Dioxide 32 (21-32) mmol/L Anion Gap 3 (3-11) BUN 8 (6-23) mg/dl Creatinine 0.78 (0.6-1.4) mg/dl Est Cr Clr Drug Dosing 146.1 ml/min Est GFR ( Amer) 139.4 ml/min Est GFR (Non-Af Amer) 120.3 ml/min BUN/Creatinine Ratio 10.3 (10-20) Glucose 97 (70-99(Fasting)) mg/dl Calcium 9.3 (8.5-10.1) mg/dl Magnesium 2.0 (1.7-2.4) mg/dl Total Bilirubin 0.9 D (0.2-1.0) mg/dl AST 29 (13-39) U/L ALT 24 (7-52) U/L Alkaline Phosphatase 40 (34-104) U/L Total Protein 6.8 (6.0-8.3) gm/dl Albumin 4.1 (3.4-5.0) gm/dl Globulin 2.7 (2.5-4.0) gm/dl Albumin/Globulin Ratio 1.5 (0.9-2) Medications Administered Enoxaparin Sodium (Enoxaparin Inj 40 Mg/0.4 Ml Syr) 40 mg SQ QAM [facility] Stop: 10/11/22 09:44 Last Admin: 09/12/22 08:13 Dose: 40 mg Documented By: Admin: 09/11/22 11:43 Dose: 40 mg Documented By: QGV Folic Acid 1 mg/ Syringe 10 mls @ 5 mls/min IV QAM [facility] Stop: 10/11/22 09:14 Last Admin: 09/12/22 08:13 Dose: 5 mls/min Documented By: Admin: 09/11/22 10:06 Dose: 5 mls/min Documented By: ISABELLE Ondansetron HCl (Ondansetron Inj 2 Mg/Ml 2 Ml Vial) 4 mg IV Q4H PRN PRN Reason: Nausea Stop: 10/11/22 08:44 Last Admin: 09/12/22 08:24 Dose: 4 mg Documented By: MOIRA Pantoprazole Sodium (Pantoprazole 40 Mg Tab) 40 mg PO QAM [facility] Stop: 10/11/22 09:29 Last Admin: 09/12/22 08:13 Dose: 40 mg Documented By: Admin: 09/11/22 10:05 Dose: 40 mg Documented By: ISABELLE Phenobarbital (Phenobarbital 30 Mg Tab) 60 mg PO TID [facility] Stop: 09/12/22 21:01 Last Admin: 09/12/22 13:19 Dose: 60 mg Documented By: Admin: 09/12/22 08:24 Dose: 60 mg Documented By: MOIRA Thiamine HCl (Thiamine Hcl 100 Mg Tab) 100 mg PO QAM [facility] Stop: 10/11/22 09:44 Last Admin: 09/12/22 08:13 Dose: 100 mg Documented By: Admin: 09/11/22 11:43 Dose: 100 mg Documented By: QGV Coding Level of Care Code 34730 [facility] Intl Hosp Care Lvl 2 Diagnoses Alcohol abuse with withdrawal F10.139 Depression, unspecified F33.1 Active/Remission status: currently active Depression Type: major depressive disorder Major depression episode severity: moderate Major depression recurrence: recurrent
--- NOTE | 2022-09-12 20:26 | Hospitalist Progress Note ---
Date of Service September 12, 2022 Assessment & Plan (1) Alcohol abuse with withdrawal: Plan: Some question to me of if he could actually withdrawal or not as he reports being sober for 17 days, and only drinking for about 6 days. In any event, good candidate for phenobarbital as patient has no underlying cirrhosis. Phenobarb load ordered in the ER. * Phenobarbital 90 mg PO TID for today (clear instructions in labelling to hold for RASS < -1) * Phenobarbital 60 mg PO TID for tomorrow * Phenobarbital 30 mg PO TID for Sunday -> Low dose Ativan scale given, but he could also receive additional PO dose if RUT scores start to increase. - Vitamin repletion If continues to do well, will medically clear on 09/13 (2) Major depressive disorder, recurrent episode: Plan: With several episodes of SI. Reports he would not "feel safe" at home, but denies HI. - Suicide precautions - Psych consulted (3) Anxiety: Plan: Reason for drinking. - Psych as above (4) DVT prophylaxis: Plan: Lovenox FULL CODE Admission and Anticipated Discharge Date Admission Date: September 11, 2022 Subjective Patient reports feeling better, less anxious. less tremors Review of Systems Review of Systems: All systems reviewed & are unremarkable except as noted in HPI & below Physical Exam Physical Exam: Constitutional: WD/WN, vitals as above,no acute distress Eyes: EOM intact bilaterally; no conjunctival abnormality ENMT: external ear and nose normal, oropharynx normal Neck: trachea midline, no thyromegaly normal visual inspection Respiratory: normal respiratory effort, lungs clear to auscultation no respiratory distress Cardiovascular: Rate/Rhythm: regular rhythm and + tachycardic Gastrointestinal (Abdomen): Inspection/Auscultation: abdomen normal to inspection; abdomen not distended Musculoskeletal: no cyanosis or clubbing, extremities motor strength 5/5 Skin: no rashes, warm and dry Neurologic: moves all extremities and awake Tremulous Psychiatric: Orientation: alert, oriented to person and cooperative Results & Data Results & Data ([facility]) Vital Signs (Past 12 Hours) Vital Signs Temp Pulse Pulse Resp BP Pulse Ox O2 Del Method 09/12/22 19:37 36.5 C 62 18 136/77 96 Room Air 09/12/22 18:15 36.7 C 66 18 123/86 95 Room Air 09/12/22 16:00 58 L 09/12/22 11:15 36.3 C L 65 16 120/71 96 Room Air 09/12/22 11:15 46 L PG Care Time/CCT Total # of Minutes Spent Total Time Spent with Patient: Total time spent is greater than 50% in coordination of care (as documented) at patient's floor/unit and/or counseling patient: Coding Level of Care Code 26796 Subseq Hosp Care Lvl 2 Diagnoses Alcohol abuse with withdrawal F10.139 Major depressive disorder, recurrent episode F33.9 Anxiety F41.9 DVT prophylaxis Z29.9 Time Spent (min) 25
[2022-09-13 06:50] LABS: Hematocrit (blood only) 45.2 % (40.1-51.0); Hemoglobin 15.6 g/dl (14.0-18.0); Mean Corpuscular Hgb Conc 34.5 g/dL (32.0-36.0); Mean Corpuscular Volume 95.6 fL (80.0-100.0); Mean Platelet Volume 10.3 fL (9.4-12.4); Platelet Count 234 K/uL (130-400); RDW Coefficient of Variation 11.6 % (11.5-14.5); RDW Standard Deviation 40.8 fL (36.4-46.3); Red Blood Count 4.73 M/uL (4.63-6.08); White Blood Count 5.19 K/ul (4.8-10.8)
[2022-09-13 07:09] LABS: BUN Creatinine Ratio 12.5 (10-20); Creatinine Clr Calc Pharmacy 142.5 ml/min
[2022-09-13] MEDS: PANTOprazole 40 MG TAB PO SCH (08:02)
[2022-09-13] MEDS: THIAMINE HCL 100 MG TAB PO SCH (08:02)
[2022-09-13] MEDS: PHENobarbitaL 30 MG TAB PO SCH ×2 (08:02→14:55)
[2022-09-13] MEDS: ENOXAPARIN INJ 40 MG/0.4 ML SYR SQ SCH (08:03)
[2022-09-13] MEDS: FOLIC ACID 1 MG in SYRINGE 9.8 ML IV SCH (08:45)
--- NOTE | 2022-09-13 19:47 | Communication Note ---
Date of Service: September 13, [address] Gregorio given complexity of multiple hospitalizations (medical and psych some under 302 commitment) and patient initially agreeing to inpatient rehab as recommended and then requesting discharge home. Apparently patient had also expressed some interest in Antabuse. Chun has consistently denied suicidal ideation this stay and there is no evidence of psychosis or leigh ann interfering with his medical decision making. His guns have previously removed from the home and he and his are effectively living separately to support their recovery. Acute inpatient psychiatric hospitalization has done little to alter his course as the most appropriate treatment is rehab. He is not committable to a rehab facility under [place] mental health law. I do not feel the patient is an appropriate candidate for Antabuse at this time as he is actively drinking and has not participated in a structured rehab progam. He is repeatedly inconsistent with PO meds and relapses quickly and heavily, drinking up to 20 shots back to back. He is at significant risk for toxicity with Antabuse which would result in severe hypotension. This would be particularly problematic given his recent bradycardia (40s, low 50s). Recommendation remains inpatient alcohol rehab. If he is unwilling to follow that recommendation I would support that any discharge be AMA.
--- NOTE | 2022-09-14 00:04 | Electrocardiogram Report ---
Test Reason : Blood Pressure : / mmHG Vent. Rate : 047 BPM Atrial Rate : 047 BPM P-R Int : 166 ms QRS Dur : 106 ms QT Int : 450 ms P-R-T Axes : 049 066 056 degrees QTc Int : 398 ms Sinus bradycardia Otherwise normal ECG When compared with ECG of 12-SEP-2022 05:50, No significant change was found Confirmed by Gustabo Victoria ([id number]) on 09/14/2022 12:03:47 AM Referred By: REFERRED SELF Confirmed By:Gustabo Victoria
--- NOTE | 2022-09-20 14:08 | Discharge Summary ---
Date of Service September 13, 2022 Admission HPI Per Admitting Provider 32-year-old male with history of alcohol abuse who presents with alcohol withdrawal and suicidal ideation. The patient's mother recently , and this is caused the patient to spiral in terms of his alcohol intake. He had been sober for 17 days, but started drinking about 6 days ago when his mother . He reports drinking approximately 1-1/2 fifths of liquor per day. He has not had any prior alcohol withdrawal seizures that he is aware of. The ER provider notes that he made some vague references to suicidal ideation and having a plan. For me he reports he would not feel "safe" at home, but denies any active suicidal intent or homicidal intent. The patient presently is tremulous, tachycardic, and anxious. He has received several doses of IV diazepam in the ER, and the ER provider calls with request for admission for alcohol withdrawal. Principal Diagnosis alcohol abuse with withdrawal Discharge Exam Constitutional: WD/WN, vitals as above,no acute distress Eyes: EOM intact bilaterally; no conjunctival abnormality ENMT: external ear and nose normal, oropharynx normal Neck: trachea midline, no thyromegaly normal visual inspection Respiratory: normal respiratory effort, lungs clear to auscultation no respiratory distress Cardiovascular: Rate/Rhythm: regular rhythm and + tachycardic Gastrointestinal (Abdomen): Inspection/Auscultation: abdomen normal to inspection; abdomen not distended Musculoskeletal: no cyanosis or clubbing, extremities motor strength 5/5 Skin: no rashes, warm and dry Neurologic: moves all extremities and awake Tremulous Psychiatric: Orientation: alert, oriented to person and cooperative Discharge Data Allergies Allergy/AdvReac Type Severity Reaction Status Date / Time bupropion [From Wellbutrin] AdvReac Severe anxiety, Verified 09/19/22 08:32 confussion buspirone [From BuSpar] AdvReac Intermediate Shaking/john Verified 09/19/22 08:32 mor gluten AdvReac Unknown Unknown Verified 09/19/22 08:32 milk AdvReac Unknown Unknown Verified 09/19/22 08:32 antihistamines AdvReac Intermediate "Just Uncoded 09/19/22 08:32 Don't Feel Right When I Take Them" Consultations 09/11/22 06:28 ED Decision to Admit Stat 09/11/22 08:45 Consult Psychiatry Routine Hospital Course (1) Alcohol abuse with withdrawal: Some question to me of if he could actually withdrawal or not as he reports being sober for 17 days, and only drinking for about 6 days. In any event, good candidate for phenobarbital as patient has no underlying cirrhosis. Phenobarb load ordered in the ER. * Phenobarbital 90 mg PO TID for today (clear instructions in labelling to hold for RASS < -1) * Phenobarbital 60 mg PO TID for tomorrow * Phenobarbital 30 mg PO TID for Sunday -> Low dose Ativan scale given, but he could also receive additional PO dose if RUT scores start to increase. - Vitamin repletion Medically cleared for discharge. D/w psych, does not meet criteria for involuntary admission to psych. Patient refusing inpatient rehab. Had extensive discussion with patient, patient will sign out AMA. (2) Major depressive disorder, recurrent episode: With several episodes of SI. Reports he would not "feel safe" at home, but denies HI. - Suicide precautions - Psych consulted (3) Anxiety: Reason for drinking. - Psych as above (4) DVT prophylaxis: Lovenox FULL CODE Total Time Total Time Spent Total Time Spent (In Minutes): 35 Discharge Plan Discharge Items Patient Disposition: Against Medical Advice Reason For Visit: ALCOHOL WITHDRAWAL AND SI Activity: Resume your previous activity Non-emergency contact: Primary Care Provider Follow-up/Referrals: Bri Cervantes MD [Primary Care Provider] - [facility] [employer] Provider Instructions: Strongly recommend inpatient rehab Pending Studies at Discharge: No Stand-Alone Forms: [facility] [employer], Smoking Cessation Medications and DC Order Prescriptions: Continued clonidine HCl 0.1 mg tablet 0.1 mg PO 2XD fexofenadine 180 mg tablet 180 mg PO QAM PRN (Reason: Other) Rx Instructions: Take as needed for seasonal allergies gabapentin 300 mg Capsule 300 mg PO TID 30 Days Qty: 90 0RF pantoprazole 40 mg Tablet,Delayed Release (Dr/Ec) 40 mg PO QAM 30 Days Qty: 30 0RF Discharge Orders: Left Against Medical Advice (Routine); Ordered 09/13/22 Ordered By: Delbert Gregorio Admission Data Admit Date/Time: 09/11/22 06:34 Attending Provider: Delbert Gregorio Admit Provider: Moss,Byron J. Primary Care Provider: Bri Cervantes Other Providers: Louis Moss ; Vita Mackey ; Angie Carrillo ; Ariana Hale Coding Level of Care Code D/C DAY MANAGEMENT >30 MINS Diagnoses Alcohol abuse with withdrawal F10.139 Major depressive disorder, recurrent episode F33.9 Anxiety F41.9 DVT prophylaxis Z29.9
== END 2022-09-13 18:31 | disposition left against medical advice (07) | DRG 894 ==
LOC: ED 18:31 → SUATTDRO 09-11 06:34 → EDINP 09-11 06:34 → 2W 09-11 15:12

== ENCOUNTER 2022-09-21 17:49 | Inpatient (IN) ==
[~2022-09-21 17:49] MED LIST changes: -THIAMINE HCL 100 MG TAB PO SCH; +THIAMINE HCL 100 MG in SYRINGE 9 ML IV SCH
--- NOTE | 2022-09-21 18:42 | Emergency Department Note ---
Impression & Plan Major depressive disorder, recurrent episode, Alcoholic intoxication, Alcohol abuse with withdrawal, Suicidal ideations ED Provider Note NAME: MARYSOL RUTLEDGE AGE: 32 SEX: M : 1990 ARRIVES VIA: Walk-In INFORMANT: Patient, ED PROVIDER(S): Shayne Angulo DO CHIEF COMPLAINT: Mental health evaluation HPI: The patient is a 32-year-old male who has a long history of alcohol abuse as well as alcohol intoxication and depression who presented to the emergency department for an evaluation of mental health issues. The patient was dropped off by a friend. The friend did not present to the emergency department and I could not interview to a friend. The patient was drinking a clear liquid upon arrival. This was taken from him and does have the odor of vodka. The patient does admit to drinking throughout the day. He is very vague and does not give much history. He is evasive and will not answer questions. He does admit to suicidal ideation. History was severely limited due to patient's intoxication. ROS: See above HPI for pertinent positives & negatives. A total of 10 systems reviewed and were otherwise negative. PAST MEDICAL HISTORY: See Below PAST SURGICAL HISTORY: See Below FAMILY HISTORY: See Below SOCIAL HISTORY: See Below HOME MEDICATIONS: See Below ALLERGIES: See Below VITALS: See Below PHYSICAL EXAMINATION: GENERAL: Patient is awake and looking around the room. He does not appear to be in pain. He does appear to be intoxicated. EYES: The conjunctivae are clear. The pupils are dilated and reactive bilaterally. EARS, NOSE, MOUTH AND THROAT: The nose is without any evidence of any deformity. NECK: The neck is nontender and supple. RESPIRATORY: Normal respiratory effort is noted there is no evidence of wheezing rhonchi or rales CARDIOVASCULAR: Tachycardic and regular heart sounds were noted auscultation. There is no definite murmur. GASTROINTESTINAL: The abdomen is soft. Abdomen is nontender. MUSCULOSKELETAL/EXTREMITIES: There is no evidence of gross deformity full range of motion is noted in the hips and shoulders. SKIN: There is no obvious evidence of any rash. There are no petechiae, pallor or cyanosis noted. NEUROLOGIC: Patient is awake and alert. He is moving all extremities well and ambulating with assistance. PSYCH: Patient makes poor eye contact mostly evaluation. His affect is very flat. He does not answer questions. He did admit to suicidal ideation to the triage nurse. MEDICAL DECISION MAKING: The patient is a 32-year-old male who presented to the emergency department for an evaluation of depression and suicidal ideation. The patient has presented to our facility multiple times for similar complaints. I have had the opportunity care for this patient on multiple occasions. He is difficult to manage as he presents emergency department with a very high alcohol level voicing thoughts of suicidal ideation. He is not able to be evaluated by the mental health caseworker protective services until his alcohol level is more appropriate and the patient is clinically not intoxicated. Unfortunately this cannot be done safely as the patient has a history of withdrawal reaction. For this reason the patient was reevaluated multiple times. Laboratory studies were obtained. Given his alcohol level at this time I discussed his case with the on-call [facility] hospitalist. They will evaluate the patient for further management and disposition. Triage Nursing notes reviewed. Prior medical records reviewed Vital Signs: reviewed and remarkable for no significant abnormalities Differential diagnosis: Mood disorder, infection, hypoglycemia, electrolyte abnormalities, cardiac sources, intracerebral event, toxicologic, trauma, neurologic, as well as other pathologies. ER treatment provided: See below Diagnostics interpreted by me: ECG: none Laboratory studies: As stated above and show below. Imaging studies: See below Consultation(s): I discussed this case with Amadou who is on-call for the [facility] group. 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 Alcoholic hepatitis Anxiety and depression Anxiety disorder, unspecified Chest pain Depression with suicidal ideation Depressive disorder Diplopia Dizziness Elevated liver enzymes BRITTNY (generalized anxiety disorder) BRITTNY (generalized anxiety disorder) Headache Homicidal ideation Hypokalemia Lab test negative for COVID-19 virus Left leg cellulitis No pertinent family history Pain, dental Post traumatic stress disorder (PTSD) Post traumatic stress disorder (PTSD) Self-harming behavior Suicidal behavior Suicidal ideation Tobacco abuse Surgical History No pertinent past surgical history Family History Other No significant family history Social History Smoking Status: Unknown if ever smoked Tobacco Type: Cigarettes and E-cigarettes / Vaping Cigarettes Per Day: 1 PPD; Second Hand Exposure: No; Hx Alcohol Use: Yes Alcohol type: beer Hx Substance Use: No Preferred Language: Andorran Communication Ability: Effective Visual Impairment: No Limitations Hearing Ability: Normal [address] Pressman Required: No Beliefs That Will Affect Care: None marital status: Current Living Situation: Family Current Living Situation Comment: Lives with Brother. Recently moved out of house. current occupational status: employed How many Children do You have: 1 Feels Safe at Home: Yes Childhood Exposure to Second-Hand Smoke: No Dental Care, Regularly: Yes Physical Activity Frequency: Daily Seatbelt Use: always Sunscreen Use: No Assistive Devices: None Allergies Allergies Allergy/AdvReac Type Severity Reaction Status Date / Time bupropion [From Wellbutrin] AdvReac Severe anxiety, Verified 09/19/22 08:32 confussion buspirone [From BuSpar] AdvReac Intermediate Shaking/john Verified 09/19/22 08:32 mor gluten AdvReac Unknown Unknown Verified 09/19/22 08:32 milk AdvReac Unknown Unknown Verified 09/19/22 08:32 antihistamines AdvReac Intermediate "Just Uncoded 09/19/22 08:32 Don't Feel Right When I Take Them" Home Meds Home Medications Medication Instructions Recorded Confirmed fexofenadine 180 mg tablet 180 mg PO QAM PRN Other 07/27/22 09/21/22 clonidine HCl 0.1 mg tablet 0.1 mg PO 2XD 09/10/22 09/21/22 Results & Data (ED) Vital Signs Vital Signs - 24 hr 09/21/22 18:03 09/21/22 19:55 Temperature 36.5 C Temperature Source Temporal Artery Scan Pulse Rate 111 H Pulse Rate [Finger] 110 H Pulse Rhythm Regular Pulse Strength Normal Respiratory Rate 16 20 Respiratory Effort / Characteristics Non-Labored Spontaneous Non-Labored Spontaneous Respiratory Depth Normal Normal Respiratory Pattern Regular Regular Blood Pressure 140/90 Blood Pressure [Left Arm] 123/91 Blood Pressure Mean 106 Blood Pressure Mean [Left Arm] 101 Blood Pressure Position Sitting Pulse Oximetry 97 95 Oxygen Delivery Method Room Air Room Air Sepsis Recent Fever Within 48 Hours No Sepsis New/Unexplained Change in Mental Status No Sepsis Action Taken by Nursing No Action Required Home Medications Current Medication List: was personally reviewed by me Laboratory Data Attestation: I reviewed the patient's lab results. Result diagrams: 09/21/22 18:30 09/21/22 18:30 Lab Results 09/21/22 09/21/22 09/21/22 Range/Units 18:30 18:30 18:30 WBC 7.37 (4.8-10.8) K/ul RBC 5.28 (4.63-6.08) M/uL Hgb 17.4 (14.0-18.0) g/dl Hct 50.2 (40.1-51.0) % MCV 95.1 (80.0-100.0) fL MCH 33.0 (25.0-34.0) pg MCHC 34.7 (32.0-36.0) g/dL RDW Std Deviation 42.7 (36.4-46.3) fL RDW Coeff of Bryanna 12.3 (11.5-14.5) % Plt Count 209 (130-400) K/uL MPV 10.2 (9.4-12.4) fL Immature Gran % (Auto) 0.7 % Neut % (Auto) 69.5 % Lymph % (Auto) 22.9 % [place]affee % (Auto) 5.0 % Eos % (Auto) 0.7 % Baso % (Auto) 1.2 % Neut # (Auto) 5.12 (1.4-6.5) K/uL Lymph # (Auto) 1.69 (1.2-3.4) K/uL [place] # (Auto) 0.37 (0.24-0.82) K/uL Eos # (Auto) 0.05 (0-0.50) K/uL Baso # (Auto) 0.09 (0-0.2) K/uL Immature Gran # (Auto) 0.05 H (0.00-0.02) K/uL Sodium 146 H (136-145) mmol/L Potassium 3.7 (3.5-5.1) mmol/L Chloride 104 (98-107) mmol/L Carbon Dioxide 30 (21-32) mmol/L Anion Gap 12 H (3-11) BUN 8 (6-23) mg/dl Creatinine 0.85 (0.6-1.4) mg/dl Est Cr Clr Drug Dosing 138.2 ml/min Est GFR ( Amer) 134.6 ml/min Est GFR (Non-Af Amer) 116.1 ml/min BUN/Creatinine Ratio 9.4 L (10-20) Glucose 93 (70-99(Fasting)) mg/dl Calcium 9.3 (8.5-10.1) mg/dl Total Bilirubin 0.4 (0.2-1.0) mg/dl AST 33 (13-39) U/L ALT 24 (7-52) U/L Alkaline Phosphatase 51 (34-104) U/L Total Protein 8.3 (6.0-8.3) gm/dl Albumin 5.0 (3.4-5.0) gm/dl Globulin 3.3 (2.5-4.0) gm/dl Albumin/Globulin Ratio 1.5 (0.9-2) TSH 0.883 (0.300-4.500) uIu/ml Urine Color Urine Appearance (Clear) Urine pH (4.5-7.5) Ur Specific Harshaw (1.000-1.030) Urine Protein (Negative) Urine Glucose (UA) (Negative) Urine Ketones (Negative) Urine Blood (Negative) Urine Nitrite (Negative) Urine Bilirubin (Negative) Urine Urobilinogen (Negative) Ur Leukocyte Esterase (Negative) Salicylates (3.0-30) mg/dl Urine Opiates Screen (Neg) Ur Methadone, Qual (Neg) Acetaminophen (10-30) ug/ml Urine Barbiturates (Neg) Ur Phencyclidine (PCP) (Neg) U Amphetamin/Meth Scrn (Neg) MDMA (Ecstasy) Screen (Neg) U Benzodiazepines Scrn (Neg) Ur Cocaine Metabolite (Neg) U Marijuana (THC) Screen (Neg) Ethyl Alcohol mg/dL (<10.0) mg/dl SARS-CoV-2, RNA, NAAT (NEGATIVE) 09/21/22 09/21/22 09/21/22 Range/Units 18:30 18:30 18:35 WBC (4.8-10.8) K/ul RBC (4.63-6.08) M/uL Hgb (14.0-18.0) g/dl Hct (40.1-51.0) % MCV (80.0-100.0) fL MCH (25.0-34.0) pg MCHC (32.0-36.0) g/dL RDW Std Deviation (36.4-46.3) fL RDW Coeff of Bryanna (11.5-14.5) % Plt Count (130-400) K/uL MPV (9.4-12.4) fL Immature Gran % (Auto) % Neut % (Auto) % Lymph % (Auto) % [place]af[place] % (Auto) % Eos % (Auto) % Baso % (Auto) % Neut # (Auto) (1.4-6.5) K/uL Lymph # (Auto) (1.2-3.4) K/uL [place] # (Auto) (0.24-0.82) K/uL Eos # (Auto) (0-0.50) K/uL Baso # (Auto) (0-0.2) K/uL Immature Gran # (Auto) (0.00-0.02) K/uL Sodium (136-145) mmol/L Potassium (3.5-5.1) mmol/L Chloride (98-107) mmol/L Carbon Dioxide (21-32) mmol/L Anion Gap (3-11) BUN (6-23) mg/dl Creatinine (0.6-1.4) mg/dl Est Cr Clr Drug Dosing ml/min Est GFR ( Amer) ml/min Est GFR (Non-Af Amer) ml/min BUN/Creatinine Ratio (10-20) Glucose (70-99(Fasting)) mg/dl Calcium (8.5-10.1) mg/dl Total Bilirubin (0.2-1.0) mg/dl AST (13-39) U/L ALT (7-52) U/L Alkaline Phosphatase (34-104) U/L Total Protein (6.0-8.3) gm/dl Albumin (3.4-5.0) gm/dl Globulin (2.5-4.0) gm/dl Albumin/Globulin Ratio (0.9-2) TSH (0.300-4.500) uIu/ml Urine Color Urine Appearance (Clear) Urine pH (4.5-7.5) Ur Specific Harshaw (1.000-1.030) Urine Protein (Negative) Urine Glucose (UA) (Negative) Urine Ketones (Negative) Urine Blood (Negative) Urine Nitrite (Negative) Urine Bilirubin (Negative) Urine Urobilinogen (Negative) Ur Leukocyte Esterase (Negative) Salicylates < 3.0 L (3.0-30) mg/dl Urine Opiates Screen (Neg) Ur Methadone, Qual (Neg) Acetaminophen < 3 L (10-30) ug/ml Urine Barbiturates (Neg) Ur Phencyclidine (PCP) (Neg) U Amphetamin/Meth Scrn (Neg) MDMA (Ecstasy) Screen (Neg) U Benzodiazepines Scrn (Neg) Ur Cocaine Metabolite (Neg) U Marijuana (THC) Screen (Neg) Ethyl Alcohol mg/dL 391.9 H (<10.0) mg/dl SARS-CoV-2, RNA, NAAT NEGATIVE (NEGATIVE) 09/21/22 09/21/22 Range/Units 19:45 19:45 WBC (4.8-10.8) K/ul RBC (4.63-6.08) M/uL Hgb (14.0-18.0) g/dl Hct (40.1-51.0) % MCV (80.0-100.0) fL MCH (25.0-34.0) pg MCHC (32.0-36.0) g/dL RDW Std Deviation (36.4-46.3) fL RDW Coeff of Bryanna (11.5-14.5) % Plt Count (130-400) K/uL MPV (9.4-12.4) fL Immature Gran % (Auto) % Neut % (Auto) % Lymph % (Auto) % [place]af[place] % (Auto) % Eos % (Auto) % Baso % (Auto) % Neut # (Auto) (1.4-6.5) K/uL Lymph # (Auto) (1.2-3.4) K/uL [place] # (Auto) (0.24-0.82) K/uL Eos # (Auto) (0-0.50) K/uL Baso # (Auto) (0-0.2) K/uL Immature Gran # (Auto) (0.00-0.02) K/uL Sodium (136-145) mmol/L Potassium (3.5-5.1) mmol/L Chloride (98-107) mmol/L Carbon Dioxide (21-32) mmol/L Anion Gap (3-11) BUN (6-23) mg/dl Creatinine (0.6-1.4) mg/dl Est Cr Clr Drug Dosing ml/min Est GFR ( Amer) ml/min Est GFR (Non-Af Amer) ml/min BUN/Creatinine Ratio (10-20) Glucose (70-99(Fasting)) mg/dl Calcium (8.5-10.1) mg/dl Total Bilirubin (0.2-1.0) mg/dl AST (13-39) U/L ALT (7-52) U/L Alkaline Phosphatase (34-104) U/L Total Protein (6.0-8.3) gm/dl Albumin (3.4-5.0) gm/dl Globulin (2.5-4.0) gm/dl Albumin/Globulin Ratio (0.9-2) TSH (0.300-4.500) uIu/ml Urine Color Yellow Urine Appearance Clear (Clear) Urine pH 6.0 (4.5-7.5) Ur Specific Harshaw 1.006 (1.000-1.030) Urine Protein Negative (Negative) Urine Glucose (UA) Negative (Negative) Urine Ketones Negative (Negative) Urine Blood Negative (Negative) Urine Nitrite Negative (Negative) Urine Bilirubin Negative (Negative) Urine Urobilinogen Negative (Negative) Ur Leukocyte Esterase Negative (Negative) Salicylates (3.0-30) mg/dl Urine Opiates Screen Neg (Neg) Ur Methadone, Qual Neg (Neg) Acetaminophen (10-30) ug/ml Urine Barbiturates Pos H (Neg) Ur Phencyclidine (PCP) Neg (Neg) U Amphetamin/Meth Scrn Neg (Neg) MDMA (Ecstasy) Screen Neg (Neg) U Benzodiazepines Scrn Neg (Neg) Ur Cocaine Metabolite Neg (Neg) U Marijuana (THC) Screen Neg (Neg) Ethyl Alcohol mg/dL (<10.0) mg/dl SARS-CoV-2, RNA, NAAT (NEGATIVE) Administered Medications Discontinued Medications Multivitamins 10 ml/ Thiamine HCl 100 mg/ Folic Acid 1 mg/Sodium Chloride 1,011.2 mls @ 1,011.2 mls/hr IV .Q1H ONE Stop: 09/21/22 22:14 Last Admin: 09/21/22 22:30 Dose: 1,011.2 mls/hr Documented By: YURIDIA Thiamine HCl 500 mg/ Sodium (Chloride) 55 mls @ 220 mls/hr IV NOW ONE Stop: 09/21/22 21:29 Last Infusion: 09/21/22 22:04 Dose: 0 mls/hr Documented By: Admin: 09/21/22 21:48 Dose: 220 mls/hr Documented By: AN Lactated Ringer's (Lr) 1,000 mls @ 999 mls/hr IV .Q1H1M ONE Stop: 09/21/22 21:52 Last Infusion: 09/21/22 22:22 Dose: 0 mls/hr Documented By: Admin: 09/21/22 21:10 Dose: 999 mls/hr Documented By: ARNOLDO Lorazepam (Lorazepam 1 Mg/1 Ml Syr) 4 mg IV NOW STA; Protocol Stop: 09/21/22 21:08 Last Admin: 09/21/22 21:20 Dose: 4 mg Documented By: ARNOLDO Discharge Plan Visit Data Chief Complaint: Mental Health Evaluation Stated Complaint: ALCOHOL WITHDRAWL, SUICIDAL INTENT ED Provider: Shayne Angulo Discharge Problem: Major depressive disorder, recurrent episode, Alcoholic intoxication, Alcohol abuse with withdrawal, Suicidal ideations Patient Disposition: Being Evaluated by Hospitalist Discharge Instructions Interventions: ED Discharge Assessment Last Done: 09/21/22 22:02
[2022-09-21 18:58] LABS: Basophils # (auto) 0.09 K/uL (0-0.2); Basophils % (auto) 1.2 %; Eosinophils # (auto) 0.05 K/uL (0-0.50); Eosinophils % (auto) 0.7 %; Hematocrit (blood only) 50.2 % (40.1-51.0); Hemoglobin 17.4 g/dl (14.0-18.0); Immature Granulocytes # (auto) 0.05 K/uL (0.00-0.02); Immature Granulocytes % (auto) 0.7 %; Lymphocytes # (auto) 1.69 K/uL (1.2-3.4); Lymphocytes % (auto) 22.9 %; Mean Corpuscular Hgb Conc 34.7 g/dL (32.0-36.0); Mean Corpuscular Volume 95.1 fL (80.0-100.0); Mean Platelet Volume 10.2 fL (9.4-12.4); Monocytes # (auto) 0.37 K/uL (0.24-0.82); Neutrophils # (auto) 5.12 K/uL (1.4-6.5); Neutrophils % (auto) 69.5 %; Platelet Count 209 K/uL (130-400); RDW Coefficient of Variation 12.3 % (11.5-14.5); RDW Standard Deviation 42.7 fL (36.4-46.3); Red Blood Count 5.28 M/uL (4.63-6.08); White Blood Count 7.37 K/ul (4.8-10.8)
[2022-09-21 19:24] LABS: Albumin Globulin Ratio 1.5 (0.9-2); BUN Creatinine Ratio 9.4 (10-20); Bilirubin,Total 0.4 mg/dl (0.2-1.0); Calcium 9.3 mg/dl (8.5-10.1); Creatinine Clr Calc Pharmacy 138.2 ml/min; Est GFR (African American) 134.6 ml/min; Est GFR (Non-African American) 116.1 ml/min; Globulin 3.3 gm/dl (2.5-4.0); Potassium 3.7 mmol/L (3.5-5.1); Total Protein 8.3 gm/dl (6.0-8.3)
[2022-09-21 19:25] LABS: Acetaminophen < 3 ug/ml (10-30); Salicylate < 3.0 mg/dl (3.0-30)
[2022-09-21 20:13] LABS: Appearance Urine Clear (Clear); Bilirubin Urine Negative (Negative); Blood Urine Negative (Negative); Color Urine Yellow; Glucose Urine UA Negative (Negative); Ketones Urine Negative (Negative); Leukocyte Esterase Urine Negative (Negative); Nitrite Urine Negative (Negative); Protein Urine Negative (Negative); Specific Gravity Urine 1.006 (1.000-1.030); Urobilinogen Urine Negative (Negative)
--- NOTE | 2022-09-21 20:31 | History & Physical Report ---
Date of Service September 21, 2022 Assessment & Plan (1) Alcohol abuse with withdrawal: Plan: -Will start patient in the PCU but will likely need upgrade per ICU after discussions with ICU staff -Will give 4 mg IV ativan now and monitor his response -Will start AWSS precautions with IV ativan, will also start librium now as well -Will give banana bag, 1L LR bolus, and 5oo mg IV thiamine -Will monitor his response to the initial dose of ativan, if no significant response plan will be to transfer to the ICU, already discussed with ICU staff who is on board -AM CBC, CMP, and mag (2) Suicidal ideations: Plan: -Currently noting suicidal ideations but not current plan -Suicide precautions ordered -Would consult Psychiatry once he is stable and sober (3) DVT prophylaxis: Plan: -BL SCDs (4) Depression, unspecified: Plan: -Not currently on medication Plan The patient was discussed with Dr. Serrano at the time of the exam History of Present Illness Chief Complaint: Mental health evaluation Primary Care Provider: Bri Cervantes MD Chun is a 32 year old male with a PMH significant for alcohol abuse, depression with suicidal ideations, and anxiety who was dropped off at the [facility] ED by a friend on 09/21/22 for mental health evaluation. Per chart review, the patient has had numerous recent admissions for alcohol withdrawal, depression, and suicidal ideations. He was last admitted to [facility] from 09/11/22-09/13/22 for alcohol withdrawal and suicidal ideations after the recent passing of his mother. Per the discharge summary from 09/13, the patient was started on phenobarbital and low dose Ativan for AWSS protocol and psychiatry was consulte d. When the patient sobered up he refused alcohol rehab and was not deemed an inpatient psych candidate, the patient left [facility] on 09/13. In the Ed the patient was found to be afebrile, hemodynamically stable, stable on RA but tachycardic in the 110's. Labs were remarkable for CBC WNL, stable renal function, sodium of 146, AG of 12 with bicarb 30, Liver function WNL, clean UA, alcohol level of 391 and pending toxicology screen, he was also found to be covid negative. At the time of the exam the patient was lying in bed in no acute distress. History was difficult to obtain as the patient was slow to respond and would often apologize for me having to take care of him. When asked why he came to the hospital he stated that his mother passed recently. He would not quantify how much he has been drinking or when his last drink was. The patient had a noticeable tremor during my exam and stated that he feels as though he is already going into withdrawal. When asked about hallucinations he states that he is seeing people and animals that are not actually there. When asked if he is having suicidal or homicidal ideations he stated "the first one". He never answered when I asked if he had a plan to harm himself. Please refer to Dr. Serrano's attestation for any changes to the treatment plan Allergies Allergy/AdvReac Type Severity Reaction Status Date / Time bupropion [From Wellbutrin] AdvReac Severe anxiety, Verified 09/19/22 08:32 confussion buspirone [From BuSpar] AdvReac Intermediate Shaking/john Verified 09/19/22 08:32 mor gluten AdvReac Unknown Unknown Verified 09/19/22 08:32 milk AdvReac Unknown Unknown Verified 09/19/22 08:32 antihistamines AdvReac Intermediate "Just Uncoded 09/19/22 08:32 Don't Feel Right When I Take Them" Home Medications Medication Instructions Recorded Confirmed Type fexofenadine 180 mg tablet 180 mg PO QAM PRN Other 07/27/22 09/21/22 History clonidine HCl 0.1 mg tablet 0.1 mg PO 2XD 09/10/22 09/21/22 History 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 Alcoholic hepatitis Anxiety and depression Anxiety disorder, unspecified Chest pain Depression with suicidal ideation Depressive disorder Diplopia Dizziness Elevated liver enzymes BRITTNY (generalized anxiety disorder) BRITTNY (generalized anxiety disorder) Headache Homicidal ideation Hypokalemia Lab test negative for COVID-19 virus Left leg cellulitis No pertinent family history Pain, dental Post traumatic stress disorder (PTSD) Post traumatic stress disorder (PTSD) Self-harming behavior Suicidal behavior Suicidal ideation Tobacco abuse Surgical History No pertinent past surgical history Family History Other No significant family history Social History Smoking Status: Unknown if ever smoked Tobacco Type: Cigarettes and E-cigarettes / Vaping Cigarettes Per Day: 1 PPD; Second Hand Exposure: No; Hx Alcohol Use: Yes Alcohol type: beer Hx Substance Use: No Preferred Language: Greenlandic Communication Ability: Effective Visual Impairment: No Limitations Hearing Ability: Normal Voicer Required: No Beliefs That Will Affect Care: None marital status: Current Living Situation: Family Current Living Situation Comment: Lives with Brother. Recently moved out of house. current occupational status: employed How many Children do You have: 1 Feels Safe at Home: Yes Childhood Exposure to Second-Hand Smoke: No Dental Care, Regularly: Yes Physical Activity Frequency: Daily Seatbelt Use: always Sunscreen Use: No Assistive Devices: None Review of Systems Review of Systems: Denies current fever, chills, changes in vision, hearing, taste, and smell, chest pain, SOB, cough, abdominal pain, nausea, vomiting, diarrhea, hematemesis, melena, dysuria, hematuria, and recent falls. All systems have been reviewed and are otherwise negative. Physical Exam Physical Exam: Physical Exam: General: In moderate distress, appears to be in active withdrawal HEENT: Normocephalic, atraumatic, no scleral icterus, pupils around round, symmetrical, and reactive to light, dry mucus membranes, trachea midline, no thyromegaly Chest/Pulm: No respiratory distress, symmetrical chest expansion, clear breath sounds throughout Cardiac: tachycardic rate, regular rhythm, no murmurs noted Abdomen: Negative for ascites and bruising, normoactive bowel sounds, soft, non-tender to palpation throughout Musculoskeletal: Symmetrical and without signs of acute trauma, upper and lower extremities with full ROM, no atrophy, spasticity, or flaccidity Extremities: Radial, dorsalis pedis, and posterior tibial pulses are intact and symmetrical, no edema noted in the BL LE's Skin: Warm, dry, no rashes , lesions, or scars noted Neuro: Alert, will not answer orientation questions, currently tremulous, CN II-XII tested and intact Psych: No acute distress, having visual hallucinations, not agitated or aggressive at the time of the exam Results & Data Results & Data ([facility]) Vital Signs (Past 12 Hours) Vital Signs Temp Pulse Pulse Resp BP BP Pulse Ox 09/21/22 19:55 110 H 20 123/91 95 09/21/22 18:03 36.5 C 111 H 16 140/90 97 O2 Del Method 09/21/22 19:55 Room Air 09/21/22 18:03 Room Air Laboratory Results Abnormal lab results 09/21/22 09/21/22 09/21/22 Range/Units 18:30 18:30 18:30 Immature Gran # (Auto) 0.05 H (0.00-0.02) K/uL Sodium 146 H (136-145) mmol/L Anion Gap 12 H (3-11) BUN/Creatinine Ratio 9.4 L (10-20) Salicylates < 3.0 L (3.0-30) mg/dl Acetaminophen < 3 L (10-30) ug/ml Urine Barbiturates (Neg) Ethyl Alcohol mg/dL (<10.0) mg/dl 09/21/22 09/21/22 Range/Units 18:30 19:45 Immature Gran # (Auto) (0.00-0.02) K/uL Sodium (136-145) mmol/L Anion Gap (3-11) BUN/Creatinine Ratio (10-20) Salicylates (3.0-30) mg/dl Acetaminophen (10-30) ug/ml Urine Barbiturates Pos H (Neg) Ethyl Alcohol mg/dL 391.9 H (<10.0) mg/dl ECG Additional Comments: ECG not available at the time of the admission, will obtain one now Code Status & VTE Plan Code Status Full code VTE Prophylaxis Plan VTE Prophylaxis will be ordered: Yes Supervising Physician Co-Signing Physician Notes Patient seen and examined, chart reviewed, case discussed harriet Solo and I agree with the assessment and plan as above. In brief, patient is a 32yo male with frequent hospital encounters for EtOH intoxication and withdrawal. Patient with depression and PTSD. Drinks heavily, has had SI in the past but not currently. He reports drinking approximately 1 handle of vodka daily (appx 40 shots daily). He reports his last drink was today around 11:00, however, ER staff reported that he had a cup of vodka that he was drinking until appx 18:00 Patient awake and alert, sitting at the edge of the bed. He appears unkempt. Tremulous and tachycardic Lungs CTA Abd soft, NT/ND He does report feeling like his is going through withdrawal. He reports seeing animals that turn into people. No additional complaints Labs and images reviewed Assessment/Plan EtOH intoxication, withdrawal suspected given tremors, tachycardia. Concerning that EtOH level is presently 391 He has been given a Banana bag, Thiamine 500mg IV x 1 as well as 4mg IV Ativan and 1L of LR He does seem improved slightly after these measures Will admit to PCU for now and manage with Librium and Ativan per AWSS protocol Expect patient will require large amounts of benzodiazepines. Low threshold for MICU transfer Remainder as above PG Care Time/CCT Total # of Minutes Spent Total Time Spent with Patient: Total time spent is greater than 50% in coordination of care (as documented) at patient's floor/unit and/or counseling patient: Coding [place] [address] Initial Inpt Care Lvl 3 Patient Type Established Medical Decision Making High Complexity Diagnoses Alcohol abuse with withdrawal F10.139 Suicidal ideations R45.851 DVT prophylaxis Z29.9 Depression, unspecified F33.1 Active/Remission status: currently active Depression Type: major depressive disorder Major depression episode severity: moderate Major depression recurrence: recurrent (1) Depression, unspecified Active/Remission status: currently active Depression Type: major depressive disorder Major depression episode severity: moderate Major depression recurrence: recurrent Qualified Code(s): F33.1 - Major depressive disorder, recurrent, moderate
[2022-09-21 20:44] LABS: Amphetamines+Metham, Urine Neg (Neg); Barbiturates, Urine Pos (Neg); Benzodiazepine, Urine Neg (Neg); Cocaine, Urine Neg (Neg); MDMA (Ecstacy), Urine Neg (Neg); Methadone, Urine Neg (Neg); Opiate, Urine Neg (Neg); Phencyclidine, Urine Neg (Neg)
[2022-09-21] MEDS ORDERED: LACTATED RINGER'S 1,000 ML IV ONE (20:52)
[2022-09-21] MEDS ORDERED: LORazepam 3 MG in SYRINGE 0 ML IV PRN (20:54)
[2022-09-21] MEDS ORDERED: LORazepam 2 MG in SYRINGE 0 ML IV PRN (20:54)
[2022-09-21] MEDS ORDERED: chlordiazePOXIDE ALCOHOL WITHDRAWL 50MG PO STA (20:54)
[2022-09-21] MEDS ORDERED: Ativan IV Alcohol Withdrawal--Active Protocol IV PRN (20:54)
[2022-09-21] MEDS ORDERED: LORazepam 1 MG/1 ML SYR IV STA (21:07)
[2022-09-21] MEDS ORDERED: THIAMINE HCL 500 MG in SODIUM CHLORIDE 0.9% 50 ML IV ONE (21:15)
[2022-09-21] MEDS ORDERED: MULTI-VITAMIN INFUSION 10 ML, THIAMINE HCL 100 MG, FOLIC ACID 1 MG in SODIUM CHLORIDE 0... IV ONE (21:15)
[2022-09-21] MEDS: chlordiazePOXIDE HCl 25 MG CAP PO SCH (23:18)
[2022-09-22] MEDS: chlordiazePOXIDE HCl 25 MG CAP PO SCH ×4 (04:17→20:34)
--- NOTE | 2022-09-22 08:18 | Hospitalist Progress Note ---
Date of Service September 22, 2022 Assessment & Plan (1) Alcohol abuse with withdrawal: Plan: Dropped off to ER by friend, actively drinking clear liquid/likely vodka Etoh level 391.9 on admit Drug tox screen + for barbituates Banana bag x 1, 1L LR bolus, 500mg IV thiamine, 4mg IV ativan x 1 AWSS ordered -- at time of eval asked RN to provide 1mg ativan for tremor starting, although HR in 90s, BP stable, no gooseflesh/abd pain/DTs present - Ativan prn Has required additional 2 - 1mg IV doses since admitting 4mg dose Continue Librium taper Continue thiamine IV, increased to 200mg IV BID Continue folic acid 1mg po Added cyanocobalamin 1000mcg daily Also ordered 1gm IV mag Anion gap closed on repeat labs, LFTs wnl. alcohol related Monitor labs in AM Monitor in MICU/telemetry No need for ICU but will continue to monitor as has been <24 hours since last drink and will need to monitor closely (2) Suicidal ideations: Plan: Noted suicial ideations but no plan on admit, positive passive ideation but also endorses significant depression/anxiety staying/helping her brother/spending time apart (toxic relationship) recently lost his mother about 2 weeks ago, appears from cirrhosis given description of jaundice/drinking Certainly with aspect PTSD/events in childhood, did discuss prazosin, was agreeable. Will hold off for now. Per psych had offered in past, but would revisit. They tried offering SSRI in past, declined. They did find gabapentin 300mg TID helpful for mood, consider further discussions Also discussed Vistaril prn for anxiety closer to discharge, appreciate re commendations from psych Prior given Vivitrol, however doesn't mix meds/alcohol, and stops them altogether in the past Maintain suicide precautions, 1:1 for safety Psych consulted for tomorrow, possible inpatient rehab vs inpatient psych given SI (although not active presently, passive ideation noted) if patient agreeable as he was agreeable to treatment during my encounter (noted signed out AMA last admission) (3) DVT prophylaxis: Plan: Scds ordered (4) Depression, unspecified: Plan: -Not currently on medication , would highly benefit from SSRI, offered in past by psych Prior effectiveness w/ gabapentin TID as above, consideration repeating Vistaril as he said he would be agreeable Plan continued inpatient stay monitor in PCU once bed available Admission and Anticipated Discharge Date Admission Date: September 21, 2022 Supervising Physician Co-Signing Physician Notes PA Supervision Note: I personally saw and examined the patient. I verified all abel points and agree with MITA Driver with the following exceptions and/or additions: None. Overa ll plan for AWSS protocol with Librium taper, Ativan as needed. [facility] resources offered to patient. Psychiatry to see patient tomorrow, given passive ideation of now, suicidal ideation at time of admit. Subjective Eval in morning in psychiatric pod in ER awaiting bed in PCU. Patient resting in bed initially with lights off, easily awoken and conversive. Tremulous upon waking, improved with sitting on edge of bed and having discussion with patient. He does endorse him and have been apart but that is due to her helping her brother and agreeing for a little bit of a break from each other. He does endorse significant depression and anxiety, poor sleep/nightmares. Inquired about medications for anxiety/depression, sleep. He states he has tried benadryl at recommendation of someone in past for sleep but that it amps him up. Discussed continuing ativan which he reports is effective, but possibly trial Vistaril for anxiety, consideration to have psych weigh in possibly tomorrow/consider prazosin at night for PTSD/night terrors Had been [facility], inquired about this past stay as noted possible only there 1 day. He states he did not feel safe there and there was access to knives/etc and he did not feel safe and left. Does state that he wants to stop drinking, his mother passed about 2 weeks ago. Discussed cause -- he states she didn't really take care of herself/routine care, heavy drinker. Stated passed from liver/renal failure but noted she would drink and be yellow, then stop until yellow went away and then restart. Discussed cirrhosis and wanting to avoid this in the future for him. Passive ideation noted. Will have continued discussion about rehab, psychiatric consultation for tomorrow. Review of Systems Review of Systems: All systems reviewed & are unremarkable except as noted in HPI & below Physical Exam Physical Exam: General WD/WN male resting comfortable in bed, easily awoke, alert to person/place/time/date, NAD HEENT: head normocephalic, atraumatic, mmm, trachea midline, no deviation Resp: CTAB, no w/c/r, on room air CV: regular rate/rhythm (rate 90bpm), no m/r/g, no pitting edema, well perfused GI: +BS, soft/NT ; no hernandez MSK/Neuro: no focal deficit, strength full throughout, slightly tremulous with movements Psych: alert, oriented to person/place/time/September, anxious at times, becomes tearful talking about his mother or bringing up prior trauma, passive ideation without active presently, but then didn't answer when asked if he ever had a plan. No HI. Cooperative with examination and care Results & Data Results & Data ([facility]) Vital Signs (Past 12 Hours) Vital Signs Pulse Pulse Resp BP BP Pulse Ox Pulse Ox 09/22/22 06:00 88 17 94 09/22/22 06:00 105/74 09/22/22 05:30 113/75 09/22/22 05:30 76 17 93 09/22/22 05:00 70 16 96 09/22/22 05:00 106/75 09/22/22 04:30 116/67 09/22/22 04:30 68 16 96 09/22/22 04:00 104/70 09/22/22 05:53 80 18 113/75 94 09/22/22 04:00 73 15 96 09/22/22 03:30 105/71 09/22/22 03:30 71 18 94 09/22/22 03:00 82 15 93 09/22/22 03:00 101/69 09/22/22 03:17 96 H 101/69 95 09/22/22 02:11 73 12 107/67 94 09/22/22 01:00 72 16 112/79 96 09/22/22 00:40 79 12 101/66 94 09/21/22 23:00 77 18 107/56 L 96 09/21/22 23:07 79 12 107/56 L 95 09/21/22 22:30 85 14 107/48 L 94 09/21/22 22:01 92 09/21/22 22:01 91 H 14 119/66 92 09/21/22 21:30 94 H 18 127/91 98 O2 Del Method O2 Del Method 09/22/22 06:00 09/22/22 06:00 09/22/22 05:30 09/22/22 05:30 09/22/22 05:00 09/22/22 05:00 09/22/22 04:30 09/22/22 04:30 09/22/22 04:00 09/22/22 05:53 Room Air 09/22/22 04:00 09/22/22 03:30 09/22/22 03:30 09/22/22 03:00 09/22/22 03:00 09/22/22 03:17 Room Air 09/22/22 02:11 Room Air 09/22/22 01:00 09/22/22 00:40 Room Air 09/21/22 23:00 09/21/22 23:07 Room Air 09/21/22 22:30 Room Air 09/21/22 22:01 Room Air 09/21/22 22:01 Room Air 09/21/22 21:30 Room Air Laboratory Results 09/22/22 09/22/22 09/21/22 Range/Units 11:49 11:49 19:45 WBC 7.68 (4.8-10.8) K/ul RBC 4.55 L (4.63-6.08) M/uL Hgb 15.1 (14.0-18.0) g/dl Hct 42.5 (40.1-51.0) % MCV 93.4 (80.0-100.0) fL MCH 33.2 (25.0-34.0) pg MCHC 35.5 (32.0-36.0) g/dL RDW Std Deviation 41.6 (36.4-46.3) fL RDW Coeff of Bryanna 12.0 (11.5-14.5) % Plt Count 179 (130-400) K/uL MPV 10.1 (9.4-12.4) fL Immature Gran % (Auto) % Neut % (Auto) % Lymph % (Auto) % Beckham % (Auto) % Eos % (Auto) % Baso % (Auto) % Neut # (Auto) (1.4-6.5) K/uL Lymph # (Auto) (1.2-3.4) K/uL Beckham # (Auto) (0.24-0.82) K/uL Eos # (Auto) (0-0.50) K/uL Baso # (Auto) (0-0.2) K/uL Immature Gran # (Auto) (0.00-0.02) K/uL Sodium 141 (136-145) mmol/L Potassium 3.7 (3.5-5.1) mmol/L Chloride 105 (98-107) mmol/L Carbon Dioxide 27 (21-32) mmol/L Anion Gap 9 (3-11) BUN 9 (6-23) mg/dl Creatinine 0.69 (0.6-1.4) mg/dl Est Cr Clr Drug Dosing 170.3 ml/min Est GFR ( Amer) 146.6 ml/min Est GFR (Non-Af Amer) 126.5 ml/min BUN/Creatinine Ratio 13.0 (10-20) Glucose 85 (70-99(Fasting)) mg/dl Calcium 9.2 (8.5-10.1) mg/dl Magnesium 1.7 (1.7-2.4) mg/dl Total Bilirubin 0.4 (0.2-1.0) mg/dl AST 26 (13-39) U/L ALT 21 (7-52) U/L Alkaline Phosphatase 42 (34-104) U/L Total Protein 6.7 (6.0-8.3) gm/dl Albumin 4.1 (3.4-5.0) gm/dl Globulin 2.6 (2.5-4.0) gm/dl Albumin/Globulin Ratio 1.6 (0.9-2) TSH (0.300-4.500) uIu/ml Urine Color Urine Appearance (Clear) Urine pH (4.5-7.5) Ur Specific [place] (1.000-1.030) Urine Protein (Negative) Urine Glucose (UA) (Negative) Urine Ketones (Negative) Urine Blood (Negative) Urine Nitrite (Negative) Urine Bilirubin (Negative) Urine Urobilinogen (Negative) Ur Leukocyte Esterase (Negative) Urine Butalbital Pending Salicylates (3.0-30) mg/dl Urine Opiates Screen (Neg) Ur Methadone, Qual (Neg) Acetaminophen (10-30) ug/ml Urine Barbiturates (Neg) Ur Phencyclidine (PCP) (Neg) U Amphetamin/Meth Scrn (Neg) MDMA (Ecstasy) Screen (Neg) Urine Amobarbital Pending Urine Pentobarbital Pending Urine Phenobarbital Pending Urine Secobarbital Pending U Benzodiazepines Scrn (Neg) Ur Cocaine Metabolite (Neg) U Marijuana (THC) Screen (Neg) Drug Screen Comment Pending Ethyl Alcohol mg/dL (<10.0) mg/dl SARS-CoV-2, RNA, NAAT (NEGATIVE) 09/21/22 09/21/22 09/21/22 Range/Units 19:45 19:45 18:35 WBC (4.8-10.8) K/ul RBC (4.63-6.08) M/uL Hgb (14.0-18.0) g/dl Hct (40.1-51.0) % MCV (80.0-100.0) fL MCH (25.0-34.0) pg MCHC (32.0-36.0) g/dL RDW Std Deviation (36.4-46.3) fL RDW Coeff of Bryanna (11.5-14.5) % Plt Count (130-400) K/uL MPV (9.4-12.4) fL Immature Gran % (Auto) % Neut % (Auto) % Lymph % (Auto) % Beckham % (Auto) % Eos % (Auto) % Baso % (Auto) % Neut # (Auto) (1.4-6.5) K/uL Lymph # (Auto) (1.2-3.4) K/uL [place]ham # (Auto) (0.24-0.82) K/uL Eos # (Auto) (0-0.50) K/uL Baso # (Auto) (0-0.2) K/uL Immature Gran # (Auto) (0.00-0.02) K/uL Sodium (136-145) mmol/L Potassium (3.5-5.1) mmol/L Chloride (98-107) mmol/L Carbon Dioxide (21-32) mmol/L Anion Gap (3-11) BUN (6-23) mg/dl Creatinine (0.6-1.4) mg/dl Est Cr Clr Drug Dosing ml/min Est GFR ( Amer) ml/min Est GFR (Non-Af Amer) ml/min BUN/Creatinine Ratio (10-20) Glucose (70-99(Fasting)) mg/dl Calcium (8.5-10.1) mg/dl Magnesium (1.7-2.4) mg/dl Total Bilirubin (0.2-1.0) mg/dl AST (13-39) U/L ALT (7-52) U/L Alkaline Phosphatase (34-104) U/L Total Protein (6.0-8.3) gm/dl Albumin (3.4-5.0) gm/dl Globulin (2.5-4.0) gm/dl Albumin/Globulin Ratio (0.9-2) TSH (0.300-4.500) uIu/ml Urine Color Yellow Urine Appearance Clear (Clear) Urine pH 6.0 (4.5-7.5) Ur Specific [place] 1.006 (1.000-1.030) Urine Protein Negative (Negative) Urine Glucose (UA) Negative (Negative) Urine Ketones Negative (Negative) Urine Blood Negative (Negative) Urine Nitrite Negative (Negative) Urine Bilirubin Negative (Negative) Urine Urobilinogen Negative (Negative) Ur Leukocyte Esterase Negative (Negative) Urine Butalbital Salicylates (3.0-30) mg/dl Urine Opiates Screen Neg (Neg) Ur Methadone, Qual Neg (Neg) Acetaminophen (10-30) ug/ml Urine Barbiturates Pos H (Neg) Ur Phencyclidine (PCP) Neg (Neg) U Amphetamin/Meth Scrn Neg (Neg) MDMA (Ecstasy) Screen Neg (Neg) Urine Amobarbital Urine Pentobarbital Urine Phenobarbital Urine Secobarbital U Benzodiazepines Scrn Neg (Neg) Ur Cocaine Metabolite Neg (Neg) U Marijuana (THC) Screen Neg (Neg) Drug Screen Comment Ethyl Alcohol mg/dL (<10.0) mg/dl SARS-CoV-2, RNA, NAAT NEGATIVE (NEGATIVE) 09/21/22 09/21/22 09/21/22 Range/Units 18:30 18:30 18:30 WBC (4.8-10.8) K/ul RBC (4.63-6.08) M/uL Hgb (14.0-18.0) g/dl Hct (40.1-51.0) % MCV (80.0-100.0) fL MCH (25.0-34.0) pg MCHC (32.0-36.0) g/dL RDW Std Deviation (36.4-46.3) fL RDW Coeff of Bryanna (11.5-14.5) % Plt Count (130-400) K/uL MPV (9.4-12.4) fL Immature Gran % (Auto) % Neut % (Auto) % Lymph % (Auto) % Beckham % (Auto) % Eos % (Auto) % Baso % (Auto) % Neut # (Auto) (1.4-6.5) K/uL Lymph # (Auto) (1.2-3.4) K/uL Beckham # (Auto) (0.24-0.82) K/uL Eos # (Auto) (0-0.50) K/uL Baso # (Auto) (0-0.2) K/uL Immature Gran # (Auto) (0.00-0.02) K/uL Sodium (136-145) mmol/L Potassium (3.5-5.1) mmol/L Chloride (98-107) mmol/L Carbon Dioxide (21-32) mmol/L Anion Gap (3-11) BUN (6-23) mg/dl Creatinine (0.6-1.4) mg/dl Est Cr Clr Drug Dosing ml/min Est GFR ( Amer) ml/min Est GFR (Non-Af Amer) ml/min BUN/Creatinine Ratio (10-20) Glucose (70-99(Fasting)) mg/dl Calcium (8.5-10.1) mg/dl Magnesium (1.7-2.4) mg/dl Total Bilirubin (0.2-1.0) mg/dl AST (13-39) U/L ALT (7-52) U/L Alkaline Phosphatase (34-104) U/L Total Protein (6.0-8.3) gm/dl Albumin (3.4-5.0) gm/dl Globulin (2.5-4.0) gm/dl Albumin/Globulin Ratio (0.9-2) TSH 0.883 (0.300-4.500) uIu/ml Urine Color Urine Appearance (Clear) Urine pH (4.5-7.5) Ur Specific [place] (1.000-1.030) Urine Protein (Negative) Urine Glucose (UA) (Negative) Urine Ketones (Negative) Urine Blood (Negative) Urine Nitrite (Negative) Urine Bilirubin (Negative) Urine Urobilinogen (Negative) Ur Leukocyte Esterase (Negative) Urine Butalbital Salicylates < 3.0 L (3.0-30) mg/dl Urine Opiates Screen (Neg) Ur Methadone, Qual (Neg) Acetaminophen < 3 L (10-30) ug/ml Urine Barbiturates (Neg) Ur Phencyclidine (PCP) (Neg) U Amphetamin/Meth Scrn (Neg) MDMA (Ecstasy) Screen (Neg) Urine Amobarbital Urine Pentobarbital Urine Phenobarbital Urine Secobarbital U Benzodiazepines Scrn (Neg) Ur Cocaine Metabolite (Neg) U Marijuana (THC) Screen (Neg) Drug Screen Comment Ethyl Alcohol mg/dL 391.9 H (<10.0) mg/dl SARS-CoV-2, RNA, NAAT (NEGATIVE) 09/21/22 09/21/22 Range/Units 18:30 18:30 WBC 7.37 (4.8-10.8) K/ul RBC 5.28 (4.63-6.08) M/uL Hgb 17.4 (14.0-18.0) g/dl Hct 50.2 (40.1-51.0) % MCV 95.1 (80.0-100.0) fL MCH 33.0 (25.0-34.0) pg MCHC 34.7 (32.0-36.0) g/dL RDW Std Deviation 42.7 (36.4-46.3) fL RDW Coeff of Bryanna 12.3 (11.5-14.5) % Plt Count 209 (130-400) K/uL MPV 10.2 (9.4-12.4) fL Immature Gran % (Auto) 0.7 % Neut % (Auto) 69.5 % Lymph % (Auto) 22.9 % Beckham % (Auto) 5.0 % Eos % (Auto) 0.7 % Baso % (Auto) 1.2 % Neut # (Auto) 5.12 (1.4-6.5) K/uL Lymph # (Auto) 1.69 (1.2-3.4) K/uL Beckham # (Auto) 0.37 (0.24-0.82) K/uL Eos # (Auto) 0.05 (0-0.50) K/uL Baso # (Auto) 0.09 (0-0.2) K/uL Immature Gran # (Auto) 0.05 H (0.00-0.02) K/uL Sodium 146 H (136-145) mmol/L Potassium 3.7 (3.5-5.1) mmol/L Chloride 104 (98-107) mmol/L Carbon Dioxide 30 (21-32) mmol/L Anion Gap 12 H (3-11) BUN 8 (6-23) mg/dl Creatinine 0.85 (0.6-1.4) mg/dl Est Cr Clr Drug Dosing 138.2 ml/min Est GFR ( Amer) 134.6 ml/min Est GFR (Non-Af Amer) 116.1 ml/min BUN/Creatinine Ratio 9.4 L (10-20) Glucose 93 (70-99(Fasting)) mg/dl Calcium 9.3 (8.5-10.1) mg/dl Magnesium (1.7-2.4) mg/dl Total Bilirubin 0.4 (0.2-1.0) mg/dl AST 33 (13-39) U/L ALT 24 (7-52) U/L Alkaline Phosphatase 51 (34-104) U/L Total Protein 8.3 (6.0-8.3) gm/dl Albumin 5.0 (3.4-5.0) gm/dl Globulin 3.3 (2.5-4.0) gm/dl Albumin/Globulin Ratio 1.5 (0.9-2) TSH (0.300-4.500) uIu/ml Urine Color Urine Appearance (Clear) Urine pH (4.5-7.5) Ur Specific [place] (1.000-1.030) Urine Protein (Negative) Urine Glucose (UA) (Negative) Urine Ketones (Negative) Urine Blood (Negative) Urine Nitrite (Negative) Urine Bilirubin (Negative) Urine Urobilinogen (Negative) Ur Leukocyte Esterase (Negative) Urine Butalbital Salicylates (3.0-30) mg/dl Urine Opiates Screen (Neg) Ur Methadone, Qual (Neg) Acetaminophen (10-30) ug/ml Urine Barbiturates (Neg) Ur Phencyclidine (PCP) (Neg) U Amphetamin/Meth Scrn (Neg) MDMA (Ecstasy) Screen (Neg) Urine Amobarbital Urine Pentobarbital Urine Phenobarbital Urine Secobarbital U Benzodiazepines Scrn (Neg) Ur Cocaine Metabolite (Neg) U Marijuana (THC) Screen (Neg) Drug Screen Comment Ethyl Alcohol mg/dL (<10.0) mg/dl SARS-CoV-2, RNA, NAAT (NEGATIVE) PG Care Time/CCT Total # of Minutes Spent Total Time Spent with Patient: Total time spent is greater than 50% in coordination of care (as documented) at patient's floor/unit and/or counseling patient: Coding Level of Care Code 33956 Subseq Hosp Care Lvl 3 Diagnoses Alcohol abuse with withdrawal F10.139 Suicidal ideations R45.851 DVT prophylaxis Z29.9 Depression, unspecified F33.1 Active/Remission status: currently active Depression Type: major depressive disorder Major depression episode severity: moderate Major depression recurrence: recurrent (1) Depression, unspecified Active/Remission status: currently active Depression Type: major depressive disorder Major depression episode severity: moderate Major depression recurrence: recurrent Qualified Code(s): F33.1 - Major depressive disorder, recurrent, moderate
[2022-09-22] MEDS ORDERED: LORazepam 1 MG/1 ML SYR ONE ×2 (08:51→13:18)
[2022-09-22] MEDS: LORazepam 1 MG in SYRINGE 0 ML IV PRN ×3 (08:55→21:23)
[2022-09-22] MEDS ORDERED: THIAMINE HCL 200 MG in SYRINGE 8 ML IV SCH (09:00)
[2022-09-22] MEDS ORDERED: THIAMINE HCL 200 MG in SYRINGE 9 ML IV SCH (09:00)
[2022-09-22] MEDS: FOLIC ACID 1 MG TAB PO SCH (09:03)
[2022-09-22] MEDS: CYANOCOBALAMIN (B-12) 500 MCG TABLET PO SCH (09:03)
[2022-09-22 12:09] LABS: Hematocrit (blood only) 42.5 % (40.1-51.0); Hemoglobin 15.1 g/dl (14.0-18.0); Mean Corpuscular Hemoglobin 33.2 pg (25.0-34.0); Mean Corpuscular Hgb Conc 35.5 g/dL (32.0-36.0); Mean Corpuscular Volume 93.4 fL (80.0-100.0); Mean Platelet Volume 10.1 fL (9.4-12.4); Platelet Count 179 K/uL (130-400); RDW Standard Deviation 41.6 fL (36.4-46.3); Red Blood Count 4.55 M/uL (4.63-6.08); White Blood Count 7.68 K/ul (4.8-10.8)
[2022-09-22 12:32] LABS: Albumin Globulin Ratio 1.6 (0.9-2); Albumin Level 4.1 gm/dl (3.4-5.0); Bilirubin,Total 0.4 mg/dl (0.2-1.0); Calcium 9.2 mg/dl (8.5-10.1); Creatinine Clr Calc Pharmacy 170.3 ml/min; Est GFR (African American) 146.6 ml/min; Est GFR (Non-African American) 126.5 ml/min; Globulin 2.6 gm/dl (2.5-4.0); Magnesium 1.7 mg/dl (1.7-2.4); Potassium 3.7 mmol/L (3.5-5.1); Total Protein 6.7 gm/dl (6.0-8.3)
[2022-09-22] MEDS ORDERED: MAGNESIUM SULFATE / D5W 1 GM/100 ML BAG IV ONE (13:15)
[2022-09-22] MEDS: THIAMINE HCL 200 MG in SODIUM CHLORIDE 0.9% 50 ML IV SCH (20:35)
[2022-09-22] MEDS ORDERED: ONDANSETRON INJ 2 MG/ML 2 ML VIAL IV STA (20:51)
[2022-09-23] MEDS: LORazepam 1 MG in SYRINGE 0 ML IV PRN ×4 (03:07→23:36)
[2022-09-23] MEDS: chlordiazePOXIDE HCl 25 MG CAP PO SCH ×3 (06:14→20:18)
[2022-09-23] MEDS ORDERED: ONDANSETRON INJ 2 MG/ML 2 ML VIAL IV STA (06:28)
[2022-09-23] MEDS ORDERED: ONDANSETRON INJ 2 MG/ML 2 ML VIAL ONE (06:33)
[2022-09-23 06:34] LABS: Hematocrit (blood only) 42.5 % (40.1-51.0); Hemoglobin 15.1 g/dl (14.0-18.0); Mean Corpuscular Hemoglobin 33.1 pg (25.0-34.0); Mean Corpuscular Hgb Conc 35.5 g/dL (32.0-36.0); Mean Corpuscular Volume 93.2 fL (80.0-100.0); Mean Platelet Volume 10.1 fL (9.4-12.4); Platelet Count 168 K/uL (130-400); RDW Coefficient of Variation 11.9 % (11.5-14.5); Red Blood Count 4.56 M/uL (4.63-6.08); White Blood Count 7.17 K/ul (4.8-10.8)
[2022-09-23 07:04] LABS: Albumin Globulin Ratio 1.4 (0.9-2); BUN Creatinine Ratio 15.9 (10-20); Bilirubin,Total 0.6 mg/dl (0.2-1.0); Calcium 9.1 mg/dl (8.5-10.1); Creatinine Clr Calc Pharmacy 170.3 ml/min; Est GFR (African American) 146.6 ml/min; Est GFR (Non-African American) 126.5 ml/min; Globulin 2.8 gm/dl (2.5-4.0); Magnesium 2.1 mg/dl (1.7-2.4); Potassium 3.9 mmol/L (3.5-5.1); Total Protein 6.8 gm/dl (6.0-8.3)
--- NOTE | 2022-09-23 07:32 | Hospitalist Progress Note ---
Date of Service September 23, 2022 Assessment & Plan (1) Alcohol abuse with withdrawal: Plan: Dropped off to ER by friend, actively drinking clear liquid/likely vodka out of Nick cup in ER. Etoh level was 391.9 on admit Drug tox screen + alcohol/ barbiturates Banana bag x 1, 1L LR bolus, 500mg IV thiamine, 4mg IV Ativan x 1 AWSS ordered, ativan prn -- used 5 doses of 1mg IV thus far. additional 1mg PO ordered in addition this morning when developed hallucination Librium taper Continue thiamine, folic acid, B12 LFTs wnl, VSS stable currently BP 118/75, pulse 70bpm, RR 14, temp 36.6C, 98% on RA Psych consulted, appreciate input * discussed with psych and prior effectiveness with gabapentin TID and discussed with patient to add 300mg TID to assist with prevention of DTs/withdrawal . Has been about 48 hours since last drink (AM 12/1) started having hallucinations this morning but denied any for past 2 hours when seen at lunch Of note, patient did endorse being made feel funny/mentally off/tremors to hands with prior 300mg TID but agreeable for withdrawal protocol. consideration moving forward outside of protocol for lower dose given he did report at least initially effective Reports appetite ok, improved from yesterday -- called kitchen for beef br oth/chicken per req -Protonix added as reported taking outpatient/GI/reflux symptoms. Got dose antiemetics this morning -- reports improvement with these. Denies SI/HI currently but appears w/ passive ideation at times. 1:1 for safety Strongly encouraged cessation/D&A rehab but will need continued discussions. Monitor for any need to move to ICU/phenobarb -- not at present. Previously discussed on admit w/ ICU team. Has been NSR 70-80s for the most part. No arrhythmias (2) Suicidal ideations: Plan: Noted suicidal ideations but no plan on admit, positive passive ideation but also endorses significant depression/anxiety staying/helping her brother/spending time apart (toxic relationship) recently lost his mother about 2 weeks ago, appears from cirrhosis given description of jaundice/drinking Suspected PTSD/events in childhood, mother would have him/siblings smash rocks on these fingers to bring to ER for opiate prescriptions did discuss prazosin, was agreeable. Will hold off for now. Per psych had offered in past, but would revisit. They tried offering SSRI in past, patient declined. They did find gabapentin 300mg TID helpful for mood, consider further discussions -- started as as above for alcohol withdrawal Also discussed Vistaril prn for anxiety closer to discharge, appreciate recommendations from psych Prior given Vivitrol, however doesn't mix meds/alcohol, and stops them altogether in the past Maintain suicide precautions, 1:1 for safety Psych consulted- appreciate input. Prior inpatient psych to avoid D&A and then avoids issue reported by psych. Will need continued discussions/eval for ideation once over acute withdrawal period (3) DVT prophylaxis: Plan: Scds ordered (4) Depression, unspecified: Plan: Not currently on medication , would highly benefit from SSRI, offered in past by psych Prior effectiveness w/ gabapentin TID as above -- started as above for etoh withdrawal, consider lower once over for anxiety/depression Also appears w/ PTSD/childhood trauma. Will schedule melatonin for tonight but discussed possible prazosin (reported didn't take in past, but psychiatry stated yesterday in discussions this was trialed) As above, continue to monitor (5) Acid reflux: Plan: reports taking protonix daily outpatient had some reflux/indegestion, ordered daily suspect does have gastritis underlying from etoh use monitor response/increase PPI to BID if needed/add carafate empirically. no evidence for GI bleed presently Plan continued inpatient stay Librium taper Added Gabapentin TID, monitor response Strongly encouraged D&A rehab at in Admission and Anticipated Discharge Date Admission Date: September 21, 2022 Supervising Physician Co-Signing Physician Notes PA Supervision Note: I did not personally see or examine the patient today, but I verified all abel points of MITA Driver's assessment and plan with the following exceptions/additions: None Subjective eval this afternoon around lunch He does endorse being a little irritable this morning but that he feels safe here. Not having SI/HI currently but does have depression/anxiety regarding his drinking/home situation. Discussed gabapentin 300mg TID for withdrawal given prior effectiveness. He states he got away from this in the past as it made him feel off and have shakiness in his hands. Discussed clammy/sweaty and cramping (improved since resumed his protonix taking as an outpatient and dose of antiemetics-- discussed can increase if any other symptoms) and withdrawal and would like to use the gabapentin 300mg TID for now and can consider maybe 100mg TID at lower dose for psychiatric symptoms moving forward. No vomiting reported. Labs/vital signs stable currently but does endorse having some visual hallucinations including seeing jug of water and people/figures in his vision from time/time but has not had any since he started eating lunch. accidently poured coffee in soup cup trying to make a bone broth. appetite ok, not great. would like beef broth/chicken. Called kitchen to provide. Remains on Librium taper, agreeable to inpatient psych treatment however discussed D&A rehab and will have continued discussions pending progress. Denies chest pain. Review of Systems Review of Systems: All systems reviewed & are unremarkable except as noted in HPI & below Physical Exam Physical Exam: General WD/WN male sitting up in bed, eating lunch, NAD but clammy skin and reporting slightly irritable but feels safe where he's at (reported visual hallucinations about 2 hours prior, jug of water/people/figures) HEENT: head normocephalic, atraumatic, mmm, trachea midline Resp: CTAB, no w/c, on room air CV: RRR (rate 70s), no m/r/g GI: +BS, soft/NT (?slight discomfort epigastric region), no guarding/rigidity : no hernandez MSK/Neuro: moves all extremities, no focal deficits Psych/skin: AOx3, clammy, anxious appearing at times, denies SI/HI but irritable/sweating, skin moist to touch, cooperative Results & Data Results & Data ([facility]) Vital Signs (Past 12 Hours) Vital Signs Temp Pulse Pulse Resp BP Pulse Ox O2 Del Method 09/23/22 07:00 36.8 C 60 14 114/71 98 Room Air 09/23/22 05:28 61 09/23/22 02:54 36.6 C 96 H 16 127/73 96 Room Air 09/22/22 22:29 36.9 C 72 16 121/77 94 Room Air 09/22/22 20:41 36.4 C 09/22/22 19:54 82 16 128/86 97 Room Air Laboratory Results 12/03/22 12/03/22 12/02/22 Range/Units 06:02 06:02 11:49 WBC 7.17 (4.8-10.8) K/ul RBC 4.56 L (4.63-6.08) M/uL Hgb 15.1 (14.0-18.0) g/dl Hct 42.5 (40.1-51.0) % MCV 93.2 (80.0-100.0) fL MCH 33.1 (25.0-34.0) pg MCHC 35.5 (32.0-36.0) g/dL RDW Std Deviation 41.0 (36.4-46.3) fL RDW Coeff of Bryanna 11.9 (11.5-14.5) % Plt Count 168 (130-400) K/uL MPV 10.1 (9.4-12.4) fL Sodium 137 141 (136-145) mmol/L Potassium 3.9 3.7 (3.5-5.1) mmol/L Chloride 103 105 (98-107) mmol/L Carbon Dioxide 28 27 (21-32) mmol/L Anion Gap 6 9 (3-11) BUN 11 9 (6-23) mg/dl Creatinine 0.69 0.69 (0.6-1.4) mg/dl Est Cr Clr Drug Dosing 170.3 170.3 ml/min Est GFR ( Amer) 146.6 146.6 ml/min Est GFR (Non-Af Amer) 126.5 126.5 ml/min BUN/Creatinine Ratio 15.9 13.0 (10-20) Glucose 87 85 (70-99(Fasting)) mg/dl Calcium 9.1 9.2 (8.5-10.1) mg/dl Magnesium 2.1 1.7 (1.7-2.4) mg/dl Total Bilirubin 0.6 0.4 (0.2-1.0) mg/dl AST 28 26 (13-39) U/L ALT 22 21 (7-52) U/L Alkaline Phosphatase 45 42 (34-104) U/L Total Protein 6.8 6.7 (6.0-8.3) gm/dl Albumin 4.0 4.1 (3.4-5.0) gm/dl Globulin 2.8 2.6 (2.5-4.0) gm/dl Albumin/Globulin Ratio 1.4 1.6 (0.9-2) 09/22/22 Range/Units 11:49 WBC 7.68 (4.8-10.8) K/ul RBC 4.55 L (4.63-6.08) M/uL Hgb 15.1 (14.0-18.0) g/dl Hct 42.5 (40.1-51.0) % MCV 93.4 (80.0-100.0) fL MCH 33.2 (25.0-34.0) pg MCHC 35.5 (32.0-36.0) g/dL RDW Std Deviation 41.6 (36.4-46.3) fL RDW Coeff of Bryanna 12.0 (11.5-14.5) % Plt Count 179 (130-400) K/uL MPV 10.1 (9.4-12.4) fL Sodium (136-145) mmol/L Potassium (3.5-5.1) mmol/L Chloride (98-107) mmol/L Carbon Dioxide (21-32) mmol/L Anion Gap (3-11) BUN (6-23) mg/dl Creatinine (0.6-1.4) mg/dl Est Cr Clr Drug Dosing ml/min Est GFR ( Amer) ml/min Est GFR (Non-Af Amer) ml/min BUN/Creatinine Ratio (10-20) Glucose (70-99(Fasting)) mg/dl Calcium (8.5-10.1) mg/dl Magnesium (1.7-2.4) mg/dl Total Bilirubin (0.2-1.0) mg/dl AST (13-39) U/L ALT (7-52) U/L Alkaline Phosphatase (34-104) U/L Total Protein (6.0-8.3) gm/dl Albumin (3.4-5.0) gm/dl Globulin (2.5-4.0) gm/dl Albumin/Globulin Ratio (0.9-2) PG Care Time/CCT Total # of Minutes Spent Total Time Spent with Patient: Total time spent is greater than 50% in coordination of care (as documented) at patient's floor/unit and/or counseling patient: Coding Level of Care Code 20426 Subseq Hosp Care Lvl 3 Diagnoses Alcohol abuse with withdrawal F10.139 Suicidal ideations R45.851 DVT prophylaxis Z29.9 Depression, unspecified F33.1 Active/Remission status: currently active Depression Type: major depressive disorder Major depression episode severity: moderate Major depression recurrence: recurrent Acid reflux K21.9 (1) Depression, unspecified Active/Remission status: currently active Depression Type: major depressive disorder Major depression episode severity: moderate Major depression recurrence: recurrent Qualified Code(s): F33.1 - Major depressive disorder, recurrent, moderate
[2022-09-23] MEDS ORDERED: ONDANSETRON INJ 2 MG/ML 2 ML VIAL IV PRN (07:53)
[2022-09-23] MEDS ORDERED: ACETAMINOPHEN 325 MG TAB PO PRN (07:53)
[2022-09-23] MEDS ORDERED: PROMETHAZINE HCL 6.25 MG in SODIUM CHLORIDE 0.9% 50 ML IV STA (07:57)
[2022-09-23] MEDS: NICOTINE 21 MG/24 HR TDSY TD SCH (08:03)
[2022-09-23] MEDS ORDERED: LORazepam 1 MG TAB PO STA (08:41)
[2022-09-23] MEDS: PANTOprazole 40 MG TAB PO SCH ×2 (09:22→09:23)
[2022-09-23] MEDS: THIAMINE HCL 200 MG in SODIUM CHLORIDE 0.9% 50 ML IV SCH ×2 (09:23→21:36)
[2022-09-23] MEDS: FOLIC ACID 1 MG TAB PO SCH (10:21)
[2022-09-23] MEDS: CYANOCOBALAMIN (B-12) 500 MCG TABLET PO SCH (10:21)
--- NOTE | 2022-09-23 11:55 | Communication Note ---
Date of Service: September 23, 2022 consult received, interim history reviewed, case discussed briefly with hospitalist service. Patient was hallucinating earlier (typically sees animals) and c/o anxiety, recieved additional prn Ativan, has been scoring on the AWSS. Consistent with his multiple presentations for alcohol withdrawal. Did make a vague suicidal statement to triage nurse in ED but was actively drinking alcohol from a [employer] cup and [employer] 391. Patient has had tremor/slow to respond on interactions with liaison. He did score a 22 on PHQ-9 with a 2 on #9 but unclear how accurate given detox protocol. Currently has 1-on-1. No current 302 warrant or petition to our service knowledge. Hx of leaving AMA. Recommendation will remain rehab. Will reattempt full consult when more alert, in meantime extensive hx available on chart.
[2022-09-23] MEDS: GABAPENTIN 300 MG CAP PO SCH ×2 (14:29→20:19)
[2022-09-24] MEDS: chlordiazePOXIDE HCl 25 MG CAP PO SCH ×2 (05:49→14:57)
[2022-09-24 07:15] LABS: Hematocrit (blood only) 45.4 % (40.1-51.0); Hemoglobin 15.8 g/dl (14.0-18.0); Mean Corpuscular Hemoglobin 33.3 pg (25.0-34.0); Mean Corpuscular Hgb Conc 34.8 g/dL (32.0-36.0); Mean Corpuscular Volume 95.8 fL (80.0-100.0); Mean Platelet Volume 10.5 fL (9.4-12.4); Platelet Count 172 K/uL (130-400); RDW Coefficient of Variation 12.1 % (11.5-14.5); RDW Standard Deviation 43.2 fL (36.4-46.3); Red Blood Count 4.74 M/uL (4.63-6.08); White Blood Count 5.94 K/ul (4.8-10.8)
[2022-09-24] MEDS: GABAPENTIN 300 MG CAP PO SCH ×2 (07:24→14:57)
[2022-09-24] MEDS: FOLIC ACID 1 MG TAB PO SCH (07:24)
[2022-09-24] MEDS: CYANOCOBALAMIN (B-12) 500 MCG TABLET PO SCH (07:24)
[2022-09-24] MEDS: NICOTINE 21 MG/24 HR TDSY TD SCH ×2 (07:25→07:35)
[2022-09-24] MEDS: PANTOprazole 40 MG TAB PO SCH (07:25)
[2022-09-24] MEDS: THIAMINE HCL 200 MG in SODIUM CHLORIDE 0.9% 50 ML IV SCH (07:26)
[2022-09-24 07:53] LABS: Albumin Globulin Ratio 1.5 (0.9-2); Albumin Level 4.3 gm/dl (3.4-5.0); BUN Creatinine Ratio 15.2 (10-20); Bilirubin,Total 0.7 mg/dl (0.2-1.0); Calcium 9.5 mg/dl (8.5-10.1); Creatinine Clr Calc Pharmacy 148.7 ml/min; Est GFR (African American) 138.7 ml/min; Est GFR (Non-African American) 119.7 ml/min; Globulin 2.9 gm/dl (2.5-4.0); Total Protein 7.2 gm/dl (6.0-8.3)
--- NOTE | 2022-09-24 08:00 | Hospitalist Progress Note ---
Date of Service September 24, 2022 Assessment & Plan (1) Alcohol abuse with withdrawal: Plan: Dropped off to ER by friend, actively drinking clear liquid/likely vodka out of Nick cup in ER. Etoh level was 391.9 on admit Drug tox screen + alcohol/ barbiturates Banana bag x 1, 1L LR bolus, 500mg IV thiamine, 4mg IV Ativan x 1 AWSS ordered, ativan prn -- used 5 doses of 1mg IV thus far. additional 1mg PO ordered in addition this morning when developed hallucination Librium taper Continue thiamine, folic acid, B12 LFTs wnl, VSS stable currently BP 118/75, pulse 70bpm, RR 14, temp 36.6C, 98% on RA Psych consulted, appreciate input * discussed with psych and prior effectiveness with gabapentin TID and discussed with patient to add 300mg TID to assist with prevention of DTs/withdrawal . Has been about 48 hours since last drink (AM 12/1) started having hallucinations this morning but denied any for past 2 hours when seen at lunch Of note, patient did endorse being made feel funny/mentally off/tremors to hands with prior 300mg TID but agreeable for withdrawal protocol. consideration moving forward outside of protocol for lower dose given he did report at least initially effective Reports appetite ok, improved from yesterday -- called kitchen for beef br oth/chicken per req -Protonix added as reported taking outpatient/GI/reflux symptoms. Got dose antiemetics this morning -- reports improvement with these. Denies SI/HI currently but appears w/ passive ideation at times. 1:1 for safety Strongly encouraged cessation/D&A rehab but will need continued discussions. Monitor for any need to move to ICU/phenobarb -- not at present. Previously discussed on admit w/ ICU team. Has been NSR 70-80s for the most part. No arrhythmias (2) Suicidal ideations: Plan: Noted suicidal ideations but no plan on admit, positive passive ideation but also endorses significant depression/anxiety staying/helping her brother/spending time apart (toxic relationship) recently lost his mother about 2 weeks ago, appears from cirrhosis given description of jaundice/drinking Suspected PTSD/events in childhood, mother would have him/siblings smash rocks on these fingers to bring to ER for opiate prescriptions did discuss prazosin, was agreeable. Will hold off for now. Per psych had offered in past, but would revisit. They tried offering SSRI in past, patient declined. They did find gabapentin 300mg TID helpful for mood, consider further discussions -- started as as above for alcohol withdrawal Also discussed Vistaril prn for anxiety closer to discharge, appreciate recommendations from psych Prior given Vivitrol, however doesn't mix meds/alcohol, and stops them altogether in the past Maintain suicide precautions, 1:1 for safety Psych consulted- appreciate input. Prior inpatient psych to avoid D&A and then avoids issue reported by psych. Will need continued discussions/eval for ideation once over acute withdrawal period (3) DVT prophylaxis: Plan: Scds ordered (4) Depression, unspecified: Plan: Not currently on medication , would highly benefit from SSRI, offered in past by psych Prior effectiveness w/ gabapentin TID as above -- started as above for etoh withdrawal, consider lower once over for anxiety/depression Also appears w/ PTSD/childhood trauma. Will schedule melatonin for tonight but discussed possible prazosin (reported didn't take in past, but psychiatry stated yesterday in discussions this was trialed) As above, continue to monitor (5) Acid reflux: Plan: reports taking protonix daily outpatient had some reflux/indegestion, ordered daily suspect does have gastritis underlying from etoh use monitor response/increase PPI to BID if needed/add carafate empirically. no evidence for GI bleed presently Plan continued inpatient stay Librium taper Added Gabapentin TID, monitor response Strongly encouraged D&A rehab at de Admission and Anticipated Discharge Date Admission Date: September 21, 2022 Results & Data Results & Data ([facility]) Vital Signs (Past 12 Hours) Vital Signs Temp Pulse Pulse Resp BP Pulse Ox O2 Del Method 09/24/22 06:57 36.5 C 50 L 18 105/58 L 96 Room Air 09/24/22 05:08 76 09/24/22 03:47 36.5 C 53 L 16 107/68 97 Room Air 09/23/22 23:22 36.4 C L 67 16 136/81 97 Room Air Laboratory Results 09/24/22 09/24/22 09/23/22 Range/Units 06:00 06:00 06:02 WBC 5.94 (4.8-10.8) K/ul RBC 4.74 (4.63-6.08) M/uL Hgb 15.8 (14.0-18.0) g/dl Hct 45.4 (40.1-51.0) % MCV 95.8 (80.0-100.0) fL MCH 33.3 (25.0-34.0) pg MCHC 34.8 (32.0-36.0) g/dL RDW Std Deviation 43.2 (36.4-46.3) fL RDW Coeff of Bryanna 12.1 (11.5-14.5) % Plt Count 172 (130-400) K/uL MPV 10.5 (9.4-12.4) fL Sodium 138 (136-145) mmol/L Potassium 4.0 (3.5-5.1) mmol/L Chloride 104 (98-107) mmol/L Carbon Dioxide 27 (21-32) mmol/L Anion Gap 7 (3-11) BUN 12 (6-23) mg/dl Creatinine 0.79 (0.6-1.4) mg/dl Est Cr Clr Drug Dosing 148.7 ml/min Est GFR ( Amer) 138.7 ml/min Est GFR (Non-Af Amer) 119.7 ml/min BUN/Creatinine Ratio 15.2 (10-20) Glucose 86 (70-99(Fasting)) mg/dl Calcium 9.5 (8.5-10.1) mg/dl Total Bilirubin 0.7 (0.2-1.0) mg/dl AST 27 (13-39) U/L ALT 23 (7-52) U/L Alkaline Phosphatase 45 (34-104) U/L Total Protein 7.2 (6.0-8.3) gm/dl Albumin 4.3 (3.4-5.0) gm/dl Globulin 2.9 (2.5-4.0) gm/dl Albumin/Globulin Ratio 1.5 (0.9-2) Lipase 21 (11-82) U/L PG Care Time/CCT Total # of Minutes Spent Total Time Spent with Patient: Total time spent is greater than 50% in coordination of care (as documented) at patient's floor/unit and/or counseling patient: Coding Diagnoses Alcohol abuse with withdrawal F10.139 Suicidal ideations R45.851 DVT prophylaxis Z29.9 Depression, unspecified F33.1 Active/Remission status: currently active Depression Type: major depressive disorder Major depression episode severity: moderate Major depression recurrence: recurrent Acid reflux K21.9 (1) Depression, unspecified Active/Remission status: currently active Depression Type: major depressive disorder Major depression episode severity: moderate Major depression recurrence: recurrent Qualified Code(s): F33.1 - Major depressive disorder, recurrent, moderate
--- NOTE | 2022-09-24 10:50 | Psychiatric Consultation ---
Date of Consultation September 24, 2022 Impression / Recommendations Impression 32 yo male with long hx of alcohol dependence, repeated threats to self when intoxicated, he was questioned re: SI upon arrival to ED and early in detox course, has since denied SI. Has no access to weapons as removed by police during previous encounters. Some med seeking yesterday. Case reviewed with ROSALIND Driver as unclear how much of residual withdrawal complaints are med seeking vs. mild delirium, seems confused by questions he doesn't want to answer or to avoid yet recalls my recs/conversations from last stay. (1) Alcohol use disorder, severe, dependence: (2) Depression, unspecified: Active/Remission status: currently active Depression Type: major depressive disorder Major depression episode severity: moderate Major depression recurrence: recurrent Qualified Code(s): F33.1 - Major depressive disorder, recurrent, moderate Plan the patient is psychiatrically stable for discharge to appropriate rehab facility when medically cleared, he is still considering at this time. Under [place] mental health law he is not committable to rehab. he denies SI and 1-on-1 can be discontinued if otherwise no medical indication, he typically cooperates with care on the med floor pending clearance. Psych History Identifying Data 32 yo male with multiple presentations to the ED/medical floor/psych unit for severe alcoholism. Consult is by hospitalist service for co-management. Chief Complaint "so you think Antabuse is a bad idea? History of Present Illness Awakened patient. Denies hills today and denies SI. States his anxiety has improved. States he is unsure that he wants to continue Neurontin on discharge as when he had his 17 days of sobriety he had significant tremor which he believes may have been medication related. Reviewed that unlikely due to Neurontin as gabapentin is often used for tremors and ultimately would need longer period of sobriety. He admits that he drank on Vivitrol as he thought it blocked the affects and would prefer "something that would make me sick" Reviewed that based on his history of poor compliance with treatment, refusal of inpatient rehab, pattern of binge drinking (will relapse directly to 20+ shots) I feel he is at significant risk of hypotension and other serious side effects of Antabuse but that does not mean he could not have a trial in the future. He remains ambivalent around rehab and also medication trials, stated that he may be willing to try an SSRI again. Reviewed why I do not recommend starting that during acute detox and reinforced recommendation for rehab and that he does have outpatient providers. As per initial chart review on 09/23/22: consult received, interim history reviewed, case discussed briefly with hospitalist service. Patient was hallucinating earlier (typically sees animals) and c/o anxiety, recieved additional prn Ativan, has been scoring on the AWSS. Consistent with his multiple presentations for alcohol withdrawal. Did make a vague suicidal statement to triage nurse in ED but was actively drinking alcohol from a Zamudio's cup and COSME 391. Patient has had tremor/slow to respond on interactions with liaison. He did score a 22 on PHQ-9 with a 2 on #9 but unclear how accurate given detox protocol. Currently has 1-on-1. No current 302 warrant or petition to our service knowledge. Hx of leaving AMA. Recommendation will remain rehab. Will reattempt full consult when more alert, in meantime extensive hx available on chart. Recs from end of last hospitalization: Date of Service: September 13, [address] Gregorio given complexity of multiple hospitalizations (medical and psych some under 302 commitment) and patient initially agreeing to inpatient rehab as recommended and then requesting discharge home. Apparently patient had also expressed some interest in Antabuse. Marysol has consistently denied suicidal ideation this stay and there is no evidence of psychosis or leigh ann interfering with his medical decision making. His guns have previously removed from the home and he and his are effectively living separately to support their recovery. Acute inpatient psychiatric hospitalization has done little to alter his course as the most appropriate treatment is rehab. He is not committable to a rehab facility under [place] mental health law. I do not feel the patient is an appropriate candidate for Antabuse at this time as he is actively drinking and has not participated in a structured rehab progam. He is repeatedly inconsistent with PO meds and relapses quickly and heavily, drinking up to 20 shots back to back. He is at significant risk for toxicity with Antabuse which would result in severe hypotension. This would be particularly problematic given his recent bradycardia (40s, low 50s). Recommendation remains inpatient alcohol rehab. If he is unwilling to follow that recommendation I would support that any discharge be AMA. Past Psychiatric History Previous Psych History: Reviewed presentations to the hospital since 2021: 11/23/2021: medical admission for alcohol withdrawal 12/03/2021: ED presentation for alcohol intoxication 01/02/2022: medical admission to ICU for alcohol withdrawal 01/30/2022: ED presentation for alcohol intoxication 02/24/2022: ED presentation for alcohol intoxication and head trauma from drinking 03/07/22: ED presentation for alcohol intoxication and head trauma from drinking 04/09/2022: medical admission for alcohol withdrawal 06/07/2022: ED presentation for alcohol intoxication 06/19/2022: ED presentation for alcohol intoxication 06/21/2022 - 06/24/2022: medical admission for alcohol intoxication 06/25/2022 - 06/30/2022: inpatient psychiatry admission [facility] for alcohol use and depression/ anxiety HEALTH INFORMATION MANAGEMENT Health Information Management [id number] Additional copy Printed: Patient name: MARYSOL RUTLEDGE : 1990 07/13/2022 - 07/17/2022: inpatient psychiatry admission [facility] for alcohol use and depression/ anxiety 07/26/2022: ED presentation for alcohol intoxication and transferred to [facility] inpatient psychiatry 08/12/2022: ED presentation for alcohol intoxication 08/18/2022: medical admission for alcohol withdrawal History of Previous Suicide Attempt: No (but has threatened and did cut wrist while intoxicated) 09/11/22: hospital admission for detox, left AMA after initially agreeing to rehab. Past Medication Trials: mirtazapine (didn't work), Wellbutrin, gabapentin, lexapro (recalls being very anxious), Librium (the best one that helped me with everything, helped me be the most level with stopping alcohol), naltrexone Allergies Allergy/AdvReac Type Severity Reaction Status Date / Time bupropion [From Wellbutrin] AdvReac Severe anxiety, Verified 09/19/22 08:32 confussion buspirone [From BuSpar] AdvReac Intermediate Shaking/john Verified 09/19/22 08:32 mor gluten AdvReac Unknown Unknown Verified 09/19/22 08:32 milk AdvReac Unknown Unknown Verified 09/19/22 08:32 antihistamines AdvReac Intermediate "Just Uncoded 09/19/22 08:32 Don't Feel Right When I Take Them" Home Medications Medication Instructions Recorded Confirmed Type fexofenadine 180 mg tablet 180 mg PO QAM PRN Other 07/27/22 09/21/22 History clonidine HCl 0.1 mg tablet 0.1 mg PO 2XD 09/10/22 09/21/22 History Family History significant substance abuse in mother (now ) Personal History Beliefs That Will Affect Care: None Patient History Medical History (Updated 09/24/22 @ 10:53 by Angie Carrillo MD) Abdominal pain Acute sinusitis Alcohol abuse Alcohol abuse with alcohol-induced anxiety disorder Alcohol intoxication Alcohol use disorder Alcohol use disorder, severe, dependence 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 Alcoholic hepatitis Anxiety and depression Anxiety disorder, unspecified Chest pain Depression with suicidal ideation Depressive disorder Diplopia Dizziness Elevated liver enzymes BRITTNY (generalized anxiety disorder) BRITTNY (generalized anxiety disorder) Headache Homicidal ideation Hypokalemia Lab test negative for COVID-19 virus Left leg cellulitis No pertinent family history Pain, dental Post traumatic stress disorder (PTSD) Post traumatic stress disorder (PTSD) Self-harming behavior Suicidal behavior Suicidal ideation Tobacco abuse Surgical History No pertinent past surgical history Family History Other No significant family history Social History Smoking Status: Never smoker Tobacco Type: Cigarettes and E-cigarettes / Vaping Cigarettes Per Day: 1 PPD; Second Hand Exposure: No; Hx Alcohol Use: Yes Alcohol type: beer and hard liquor Hx Substance Use: No Preferred Language: Cuban Communication Ability: Unable Visual Impairment: No Limitations Hearing Ability: Normal Digital Photographic Printer Required: No Beliefs That Will Affect Care: None marital status: Current Living Situation: Family Current Living Situation Comment: Living with brother current occupational status: employed How many Children do You have: 1 Feels Safe at Home: Yes Childhood Exposure to Second-Hand Smoke: No Dental Care, Regularly: Yes Physical Activity Frequency: Daily Seatbelt Use: always Sunscreen Use: No Assistive Devices: None Physical Exam Vital Signs (Past 24 Hours): Last Vital Signs Temp 36.5 C 09/24/22 10:39 Pulse 64 09/24/22 10:39 Resp 17 09/24/22 10:39 BP 117/87 09/24/22 10:39 Pulse Ox 97 09/24/22 10:39 O2 Del Method 09/24/22 10:39 Review of Systems All systems reviewed & are unremarkable except as noted in HPI & below Results & Data (PSY) Laboratory Results 09/24/22 09/24/22 09/23/22 Range/Units 06:00 06:00 06:02 WBC 5.94 (4.8-10.8) K/ul RBC 4.74 (4.63-6.08) M/uL Hgb 15.8 (14.0-18.0) g/dl Hct 45.4 (40.1-51.0) % MCV 95.8 (80.0-100.0) fL MCH 33.3 (25.0-34.0) pg MCHC 34.8 (32.0-36.0) g/dL RDW Std Deviation 43.2 (36.4-46.3) fL RDW Coeff of Bryanna 12.1 (11.5-14.5) % Plt Count 172 (130-400) K/uL MPV 10.5 (9.4-12.4) fL Sodium 138 (136-145) mmol/L Potassium 4.0 (3.5-5.1) mmol/L Chloride 104 (98-107) mmol/L Carbon Dioxide 27 (21-32) mmol/L Anion Gap 7 (3-11) BUN 12 (6-23) mg/dl Creatinine 0.79 (0.6-1.4) mg/dl Est Cr Clr Drug Dosing 148.7 ml/min Est GFR ( Amer) 138.7 ml/min Est GFR (Non-Af Amer) 119.7 ml/min BUN/Creatinine Ratio 15.2 (10-20) Glucose 86 (70-99(Fasting)) mg/dl Calcium 9.5 (8.5-10.1) mg/dl Total Bilirubin 0.7 (0.2-1.0) mg/dl AST 27 (13-39) U/L ALT 23 (7-52) U/L Alkaline Phosphatase 45 (34-104) U/L Total Protein 7.2 (6.0-8.3) gm/dl Albumin 4.3 (3.4-5.0) gm/dl Globulin 2.9 (2.5-4.0) gm/dl Albumin/Globulin Ratio 1.5 (0.9-2) Lipase 21 (11-82) U/L Medications Administered Chlordiazepoxide HCl (Chlordiazepoxide Hcl 25 Mg Cap) 25 mg PO Q8H XIOMY; Taper Stop: 09/24/22 21:59 Last Admin: 09/24/22 05:49 Dose: 25 mg Documented By: Admin: 09/23/22 20:18 Dose: 25 mg Documented By: Admin: 09/23/22 14:28 Dose: 50 mg Documented By: Admin: 09/23/22 06:14 Dose: 50 mg Documented By: Admin: 09/22/22 20:34 Dose: 50 mg Documented By: Admin: 09/22/22 16:02 Dose: 50 mg Documented By: Admin: 09/22/22 10:21 Dose: 50 mg Documented By: Admin: 09/22/22 04:17 Dose: Not Given Documented By: Admin: 09/21/22 23:18 Dose: Not Given Documented By: PUJA Cyanocobalamin (Cyanocobalamin (B-12) 500 Mcg Tablet) 1,000 mcg PO QAM XIOMY Stop: 10/22/22 08:59 Last Admin: 09/24/22 07:24 Dose: 1,000 mcg Documented By: Admin: 09/23/22 10:21 Dose: 1,000 mcg Documented By: Admin: 09/22/22 09:03 Dose: 1,000 mcg Documented By: NEHAL Folic Acid (Folic Acid 1 Mg Tab) 1 mg PO QAM XIOMY Stop: 10/22/22 08:59 Last Admin: 09/24/22 07:24 Dose: 1 mg Documented By: Admin: 09/23/22 10:21 Dose: 1 mg Documented By: Admin: 09/22/22 09:03 Dose: 1 mg Documented By: NEHAL Gabapentin (Gabapentin 300 Mg Cap) 300 mg PO TID XIOMY Stop: 10/23/22 13:59 Last Admin: 09/24/22 07:24 Dose: 300 mg Documented By: Admin: 09/23/22 20:19 Dose: 300 mg Documented By: Admin: 09/23/22 14:29 Dose: 300 mg Documented By: LONDON Lorazepam 1 mg/ Syringe 1 mls @ 2 mls/min IV UD PRN; Protocol PRN Reason: EtOH Withdrawal AWSS Score 6,7 Stop: 10/21/22 20:53 Last Admin: 09/23/22 23:36 Dose: 2 mls/min Documented By: Admin: 09/23/22 17:40 Dose: 2 mls/min Documented By: Admin: 09/23/22 08:00 Dose: 2 mls/min Documented By: Admin: 09/23/22 03:07 Dose: 2 mls/min Documented By: Admin: 09/22/22 21:23 Dose: 2 mls/min Documented By: Admin: 09/22/22 13:21 Dose: 2 mls/min Documented By: Admin: 09/22/22 08:55 Dose: 2 mls/min Documented By: NEHAL Thiamine HCl 200 mg/ Sodium (Chloride) 52 mls @ 210 mls/hr IV BID XIOMY Stop: 10/22/22 20:59 Last Admin: 09/24/22 07:26 Dose: 210 mls/hr Documented By: Infusion: 09/23/22 21:52 Dose: 0 mls/hr Documented By: Admin: 09/23/22 21:36 Dose: 210 mls/hr Documented By: Infusion: 09/23/22 09:38 Dose: 0 mls/hr Documented By: Admin: 09/23/22 09:23 Dose: 208 mls/hr Documented By: Infusion: 09/22/22 20:50 Dose: 0 mls/hr Documented By: Admin: 09/22/22 20:35 Dose: 210 mls/hr Documented By: LANIE Miscellaneous (Remove Nicoderm Patch) 1 each N/A DAILY@[id number] XIOMY Stop: 10/23/22 08:58 Last Admin: 09/24/22 07:25 Dose: 1 each Documented By: Admin: 09/23/22 09:26 Dose: Not Given Documented By: LONDON Nicotine (Nicotine 21 Mg/24 Hr Tdsy) 21 mg TD QAM XIOMY Stop: 10/23/22 08:59 Last Admin: 09/24/22 07:35 Dose: 21 mg Documented By: Admin: 09/23/22 08:03 Dose: 21 mg Documented By: LONDON Pantoprazole Sodium (Pantoprazole 40 Mg Tab) [facility] [place] Stop: 10/23/22 08:14 Last Admin: 09/24/22 07:25 Dose: 40 mg Documented By: Admin: 09/23/22 09:23 Dose: 40 mg Documented By: Admin: 09/23/22 09:22 Dose: 40 mg Documented By: LONDON Coding Level of Care Code 99625 [facility] Int Hosp Care [facility] 2 Diagnoses Alcohol use disorder, severe, dependence F10.20 Depression, unspecified F33.1 Active/Remission status: currently active Depression Type: major depressive disorder Major depression episode severity: moderate Major depression recurrence: recurrent
--- NOTE | 2022-09-24 13:14 | Discharge Summary ---
Date of Service September 24, 2022 Admission HPI Per Admitting Provider Chun is a 32 year old male with a PMH significant for alcohol abuse, depression with suicidal ideations, and anxiety who was dropped off at the [facility] ED by a friend on 09/21/22 for mental health evaluation. Per chart review, the patient has had numerous recent admissions for alcohol withdrawal, depression, and suicidal ideations. He was last admitted to [facility] from 09/11/22-09/13/22 for alcohol withdrawal and suicidal ideations after the recent passing of his mother. Per the discharge summary from 09/13, the patient was started on phenobarbital and low dose Ativan for AWSS protocol and psychiatry was consulted . When the patient sobered up he refused alcohol rehab and was not deemed an inpatient psych candidate, the patient left AMA on 09/13. In the Ed the patient was found to be afebrile, hemodynamically stable, stable on RA but tachycardic in the 110's. Labs were remarkable for CBC WNL, stable renal function, sodium of 146, AG of 12 with bicarb 30, Liver function WNL, clean UA, alcohol level of 391 and pending toxicology screen, he was also found to be covid negative. At the time of the exam the patient was lying in bed in no acute distress. History was difficult to obtain as the patient was slow to respond and would often apologize for me having to take care of him. When asked why he came to the hospital he stated that his mother passed recently. He would not quantify how much he has been drinking or when his last drink was. The patient had a noticeable tremor during my exam and stated that he feels as though he is already going into withdrawal. When asked about hallucinations he states that he is seeing people and animals that are not actually there. When asked if he is having suicidal or homicidal ideations he stated "the first one". He never answered when I asked if he had a plan to harm himself. Please refer to Dr. Serrano's attestation for any changes to the treatment plan Admission Exam Per Admitting Provider Physical Exam: General:In moderate distress, appears to be in active withdrawal HEENT:Normocephalic, atraumatic, no scleral icterus, pupils around round, symmetrical, and reactive to light, dry mucus membranes, trachea midline, no thyromegaly Chest/Pulm:No respiratory distress, symmetrical chest expansion, clear breath sounds throughout Cardiac:tachycardic rate, regular rhythm, no murmurs noted Abdomen:Negative for ascites and bruising, normoactive bowel sounds, soft, non-tender to palpation throughout Musculoskeletal:Symmetrical and without signs of acute trauma, upper and lower extremities with full ROM, no atrophy, spasticity, or flaccidity Extremities:Radial, dorsalis pedis, and posterior tibial pulses are intact and symmetrical, no edema noted in the BL LE's Skin:Warm, dry, no rashes , lesions, or scars noted Neuro:Alert, will not answer orientation questions, currently tremulous, CN II-XII tested and intact Psych:No acute distress, having visual hallucinations, not agitated or aggressive at the time of the exam Principal Diagnosis Alcohol Intoxication, Alcohol Withdrawal Discharge Exam General WD/WN male sitting up in bed, NAD, looks much better than yesterday HEENT: head normocephalic, mmm, trachea midline without deviation Resp: CTAB, no w/c, on room air CV: RRR (rates 90s), no m/r/g, no pitting edema/calf tenderness GI: +BS, soft, mild epigastric discomfort reported (improved from day prior) : no hernandez MSK/Neuro: moves all extremities, no focal deficits Psych: AOx3, denies SI/HI, anxiety but reported MUCH better and wanting to be discharged, no hallucinations reported since 09/23 Discharge Data Allergies Allergy/AdvReac Type Severity Reaction Status Date / Time bupropion [From Wellbutrin] AdvReac Severe anxiety, Verified 09/19/22 08:32 confussion buspirone [From BuSpar] AdvReac Intermediate Shaking/john Verified 09/19/22 08:32 mor gluten AdvReac Unknown Unknown Verified 09/19/22 08:32 milk AdvReac Unknown Unknown Verified 09/19/22 08:32 antihistamines AdvReac Intermediate "Just Uncoded 09/19/22 08:32 Don't Feel Right When I Take Them" Consultations 09/21/22 20:40 ED Decision to Admit Stat 09/22/22 06:02 Consult Behavioral Health Liaison Routine 09/23/22 08:00 Consult Psychiatry Routine Hospital Course (1) Alcohol abuse with withdrawal: Dropped off to ER by friend, actively drinking clear liquid/likely vodka out of Nick cup in ER. Etoh level was 391.9 on admit. Recently lost his mother about ~2 weeks ago (appears to be 2nd to cirrhosis, reported jaundice/alcohol use) Drug tox screen + alcohol/ barbiturates Banana bag x 1, 1L LR bolus, 500mg IV thiamine, 4mg IV Ativan x 1 initially AWSS -- multiple doses 1mg IV ativan, hasn't required anything since 09/23 Remained on librium taper -- sent w/ short rx to complete 25mg Q8h x 1 day, then 25mg Q12hr x 1 day, then 25mg x 1 and stop Started gabapentin 300mg TID previously (prior reported made him feel funny, denied currently) -- sent 2 day supply as patient follows with Joss from [facility] and to call for close follow up/consideration for SSRI Thiamine IV, B12, folate -- continued PO at d/c Did have lengthy regarding SSRI/takes time to work. Recommended continued psychiatric care at [facility] for initiation of such and consideration to continue gabapentin while getting into his system per follow up discussions LFTs wnl VSS No withdrawal at time of evaluation, no DT Reported feeling MUCH better, no tremor/clamminess/gooseflesh, nausea reported Psych consulted during inpatient stay, >72 hours since last drink. NO 302/warrant for inpatient stay, no SI/HI since no longer acutely intoxicated as reported on admit. 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 He states he does want to quit.Again, strongly encouraged follow through/follow up with medical providers (2) Suicidal ideations: Noted suicidal ideations but no plan on admit, positive passive ideation but also endorses significant depression/anxiety staying/helping her brother/spending time apart (toxic relationship) recently lost his mother about 2 weeks ago, appears from cirrhosis given description of jaundice/drinking Suspected PTSD/events in childhood, mother would have him/siblings smash rocks on these fingers to bring to ER for opiate prescriptions -- to discuss prazosin w/ [facility] in follow up SSRI prior declined but did seem agreeable but wanting to discuss w/ Joss from [facility]. Agreed No further SI/HI reported, 1:1 discontinued per psych discussion. See note (3) DVT prophylaxis: Scds ordered (4) Depression, unspecified: suspect worsened w/ passing of his mother in past month Not currently on medication , would highly benefit from SSRI, offered in past by psych but declined. WAS AGREEABLE to have continued discussion/start in f/u with [facility] Gabapentin TID effective in past per discussion with Dr Mackey, had started for etoh withdrawal Sent short rx for 2 days at d/c and patient to f/u outpatient psych about continuing/starting SSRI Of note, had received Vivitrol x 1 outpatient in past with [facility]. Consider in f/u Mood stable prior to d/c (5) Acid reflux: reports taking protonix daily outpatient -- started. did send rx at d/c. Likely worsened by tobacco use, encouraed cessation reported improved. consider BID in f/u PCP , consider adding carafate if contin ued issues and ref to GI outpatient No bleeding reported at this time, hgb stable Plan discharged home librium taper, gabapentin TID (short course) F/u [facility] for medication management and social service technician for D&A treatment Continued B12/folate/thiamine at discharge Alcohol cessation encouraged Total Time Total Time Spent Total Time Spent (In Minutes): 50 Discharge Plan Discharge Items Patient Disposition: Home - Self-Care Reason For Visit: ALCOHOL WITHDRAWL, SUICIDAL INTENT Discharge Diagnosis: Alcohol Withdrawal Goals: You have been hospitalized for an acute medical problem. During your stay at [facility], we have made an effort to correct the problem that brought you to the hospital while keeping you as comfortable as possible. Medications were used to bring your condition under control and your discharge instructions will include directions for any medications you should take after leaving the hospital. Please make sure you see your Primary Care Provider as part of your follow up plan. Activity: As commented below Non-emergency contact: Primary Care Provider, Psychiatrist and Therapist Call non-emergency contact if: you have any medication questions and your symptoms worsen Follow-up/Referrals: Bri Cervantes MD [Primary Care Provider] - Diet: Regular Addtl Attending Provider Instructions: You have been hospitalized for alcohol intoxication with elevated. Librium at discharge-- 25mg tablets are being sent. You should take 1 tablet every 8 hours for 1 day, then every 12 hours for 1 day, then once in the morning on day 3 to complete the course. You will continue gabapentin 300mg three times a day and have been given a supply for two days until you see Joss from [facility] in follow-up. DO NOT TAKE THIS IF YOU START DRINKING AGAIN I would strongly encourage you continue discuss starting SSRI with [facility] in follow up and maybe can continue the gabapentin in the meantime while the SSRI is building up in your system for full effect. Psychiatry has seen you inpatient and did not feel need commitment currently, however you should consider drug and alcohol rehab. We have spent a lot of time discussing avoiding alcohol and there are correction consequences like cirrhosis of the liver and bleeding, eventual . It is strongly encouraged to AVOID ALL ALCOHOL. Please follow up with primary care, [facility] and social service technician through [facility] in follow up to consider inpatient drug and alcohol rehab after you take care of your finances for your as you have mentioned needing to do this before being able to go inpatient. I would contiue protonix daily as you were taking, and you should continue B12/folate/thiamine at discharge given history of drinking. Please return to the ER with any symptoms worrisome for you. Pending Studies at Discharge: Yes Studies:: Urine tox Stand-Alone Forms: My [facility] [email or web address], Smoking Cessation Medications and DC Order Prescriptions: New gabapentin 300 mg Capsule 300 mg PO TID Qty: 6 0RF pantoprazole 40 mg Tablet,Delayed Release (Dr/Ec) 40 mg PO QAM Qty: 30 0RF cyanocobalamin (vitamin B-12) 500 mcg Tablet 1,000 mcg PO QAM Qty: 30 0RF folic acid 1 mg Tablet 1 mg PO QAM Qty: 30 0RF thiamine HCl (vitamin B1) 100 mg tablet 100 mg PO DAILY Qty: 30 0RF chlordiazepoxide HCl 25 mg capsule See Rx Instructions .ROUTE .COMPLEX Qty: 6 0RF Rx Instructions: take 1 tablet by mouth every 8 hours for 1 day, then 1 tablet every 12 hours for 1 day, then 1 tablet in AM on day 3 to complete taper Continued clonidine HCl 0.1 mg tablet 0.1 mg PO 2XD fexofenadine 180 mg tablet 180 mg PO QAM PRN (Reason: Other) Rx Instructions: Take as needed for seasonal allergies Discharge Orders: Discharge Order (Routine); Ordered 09/24/22 Ordered By: Tanisha Driver Admission Data Admit Date/Time: 09/21/22 21:11 Attending Provider: Amee Zimmerman Admit Provider: Rissa Serrano Primary Care Provider: Bri Cervantes Other Providers: Rissa Serrano ; Vita Mackey ; Angie Carrillo ; Ariana Hale Supervising Physician Co-Signing Physician Notes PA Supervision Note: I personally saw and examined the patient. I verified all abel points and agree with MITA Driver with the following exceptions and/or additions: S-Pt feeling better, no tremors or hallucinations, feels ready for dc to home on librium taper. Tele with NSR, normal rates but gets tachy in sinus to 140s with activity in room, recovers with rest to normal rates. O- Vitals reviewed Gen: [AAOx3, NAD] HEENT: [anicteric sclerae, EOMI] CV: [RRR no mgr nl S1S2] Pulm: [CTAB no wcr] Abd: [+BS soft NT ND no masses or hernias] Ext: [no edema, 2+ DP pulses] Skin: [no rashes, warm/dry] Neuro: [full strength throughout] Labs reviewed A/P-32 yo male with alcohol use disordr, here with EtOH intoxication and withdrawal, suicidal ideations ruled out. Stable for dc to home on librium taper, gabapentin, close Psych outpt f/u. Coding Level of Care Code D/C DAY MANAGEMENT >30 MINS Diagnoses Alcohol abuse with withdrawal F10.139 Suicidal ideations R45.851 DVT prophylaxis Z29.9 Depression, unspecified F33.1 Active/Remission status: currently active Depression Type: major depressive disorder Major depression episode severity: moderate Major depression recurrence: recurrent Acid reflux K21.9
[2022-09-25 04:57] LABS: Amobarbital, Urine Conf NEGATIVE ng/mL (<100); Butalbital, Urine NEGATIVE ng/mL (<100); Pentobarbital, Urine Conf NEGATIVE ng/mL (<100); Phenobarbital, Urine 2520 ng/mL (<100); Secobarbital, Urine Conf NEGATIVE ng/mL (<100)
== END 2022-09-24 15:00 | disposition home or self-care (01) | DRG 897 ==
LOC: ED 17:49 → EDINP 21:11 → SUATTDRO 21:11 → 2E 22:02

== ENCOUNTER 2022-10-04 23:47 | Inpatient (IN) ==
[2022-10-05] MEDS ORDERED: LORazepam 1 MG TAB PO PRN ×4 (00:32)
[2022-10-05] MEDS ORDERED: Ativan PO Alcohol Withdrawal--Active Protocol PO PRN (00:32)
[2022-10-05] MEDS ORDERED: chlordiazePOXIDE HCl 25 MG CAP PO ONE (00:32)
--- NOTE | 2022-10-05 00:32 | Emergency Department Note ---
Impression & Plan Alcohol abuse, Depression with suicidal ideation ED Provider Note NAME: MARYSOL RUTLEDGE AGE: 32 SEX: M : 1990 ARRIVES VIA: Walk-In INFORMANT: Patient, ED PROVIDER(S): Rizwan Wyman MD Chief Complaint: Suicidal ideation, alcohol use HPI: Patient presents with suicidal ideation with plan to drink himself to and not eat. The patient is also thought about cutting himself. The patient was inpatient within the last month or so. The patient believes that he has been drinking approximately 30 shots of vodka daily for the last 6 to 8 days. Patient denies any vomiting. The patient states that he has not been eating well otherwise. Patient states that he has been sleeping most of the day outs zandra of his drinking. Patient does not have any access to guns or weapons. Patient does complain of auditory and visual hallucinations and states that he sometimes has command hallucinations to harm himself. Patient denies any HI. Patient states that he does get a Vivitrol shot. Patient states that he would have like to be and started on an SSRI but states that Dr. Hugo would not prescribe this in light of his alcohol history and that he may have been taking Antabuse at the time. ROS: See HPI for pertinent positives and negatives. A total of 10 systems were reviewed and otherwise negative. Past medical history: See below Surgical history: See below Social history: See below Physical Exam: GENERAL: NAD, wearing a mask, non-toxic. EYE EXAM: Normal conjunctiva. PERRL, no anisocoria and EOM's grossly intact w/o pain. NECK: Supple, no nuchal rigidity, no adenopathy, non-tender. No signs of meningismus. FROM of the neck with good chin to chest and neck extension. No stridor. LUNGS: Clear to auscultation. Normal chest wall mechanics. HEART: NSR, no MRG. ABDOMEN: Abdomen soft, non-tender, normo-active bowel sounds, no masses, no rebound or guarding. BACK: No CVA TTP. SKIN: No rashes and no bruising. UPPER EXTREMITIES: Upper extremities are grossly normal. LOWER EXTREMITIES: Grossly normal, no edema. NEURO EXAM: A&O x3, cranial nerves II-XII grossly intact, normal speech, moves all 4 extremities. Psych: Positive SI, negative HI, positive AVH. Differential diagnoses: Mood disorder, infection, hypoglycemia, electrolyte abnormalities, cardiac sources, intracerebral event, toxicologic, trauma, neurologic, as well as other pathologies. Course: Patient was seen and evaluated the bedside. Full history physical exam was performed. MDM: Patient presents due to concern for alcohol use and mental wellness concern. Blood work was obtained. Patient was ordered Librium 100 mg given the patient's significant alcohol use. The patient's last drink was 3 hours prior to arrival. Patient also did have CIWA protocol orders in place. Patient has a normal white count H&H and platelet count. Kidney function unremarkable. Glucose of 203 but not DKA. Alcohol 308. Negative salicylate and Tylenol. Patient was signed out to Dr. 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 Alcoholic hepatitis Anxiety and depression Anxiety disorder, unspecified Chest pain Depression with suicidal ideation Depressive disorder Diplopia Dizziness Elevated liver enzymes BRITTNY (generalized anxiety disorder) BRITTNY (generalized anxiety disorder) Headache Homicidal ideation Hypokalemia Lab test negative for COVID-19 virus Left leg cellulitis No pertinent family history Pain, dental Post traumatic stress disorder (PTSD) Post traumatic stress disorder (PTSD) Self-harming behavior Suicidal behavior Suicidal ideation Tobacco abuse Surgical History No pertinent past surgical history Family History Other No significant family history Social History Smoking Status: Never smoker Tobacco Type: Cigarettes Cigarettes Per Day: 1 PPD; Second Hand Exposure: No; Hx Alcohol Use: Yes Alcohol type: hard liquor Hx Substance Use: No Preferred Language: Ivorian Communication Ability: Effective Visual Impairment: No Limitations Hearing Ability: Normal Oxyacetylene Torch Operator Required: No Beliefs That Will Affect Care: None marital status: Current Living Situation: Family Current Living Situation Comment: Living with brother current occupational status: employed How many Children do You have: 1 Feels Safe at Home: Yes Childhood Exposure to Second-Hand Smoke: No Dental Care, Regularly: Yes Physical Activity Frequency: Daily Seatbelt Use: always Sunscreen Use: No Assistive Devices: None Allergies Allergies Allergy/AdvReac Type Severity Reaction Status Date / Time bupropion [From Wellbutrin] AdvReac Severe anxiety, Verified 09/25/22 11:17 confussion buspirone [From BuSpar] AdvReac Intermediate Shaking/john Verified 09/25/22 11:17 mor gluten AdvReac Unknown Unknown Verified 09/25/22 11:17 milk AdvReac Unknown Unknown Verified 09/25/22 11:17 antihistamines AdvReac Intermediate "Just Uncoded 09/25/22 11:17 Don't Feel Right When I Take Them" Home Meds Home Medications Medication Instructions Recorded Confirmed fexofenadine 180 mg tablet 180 mg PO QAM PRN Other 07/27/22 09/25/22 clonidine HCl 0.1 mg tablet 0.1 mg PO 2XD 09/10/22 09/25/22 Previous Rx's Medication Instructions Recorded chlordiazepoxide HCl 25 mg capsule See Rx Instructions .Route 09/24/22 .COMPLEX anxiety #6 caps cyanocobalamin (vitamin B-12) 500 1,000 mcg PO QAM #30 tabs 09/24/22 mcg tablet folic acid 1 mg tablet 1 mg PO QAM #30 tabs 09/24/22 gabapentin 300 mg capsule 300 mg PO TID #6 caps 09/24/22 pantoprazole 40 mg tablet,delayed 40 mg PO QAM #30 tabs 09/24/22 release thiamine HCl (vitamin B1) 100 mg 100 mg PO DAILY #30 tabs 09/24/22 tablet Results & Data (ED) Vital Signs Vital Signs - 24 hr 10/04/22 23:53 10/05/22 00:09 10/05/22 04:00 Temperature 37.1 C Temperature Source Temporal Artery Scan Pulse Rate 118 H Pulse Rate [Left Finger] 111 H 103 H Pulse Rhythm [Left Finger] Regular Pulse Strength [Left Finger] Normal Respiratory Rate 18 18 18 Respiratory Effort / Characteristics Non-Labored Spontaneous Non-Labored Non-Labored Respiratory Depth Normal Normal Normal Respiratory Pattern Regular Regular Blood Pressure 139/90 Blood Pressure [Right Arm] 139/94 132/72 Blood Pressure Mean 106 Blood Pressure Mean [Right Arm] 109 92 Blood Pressure Position Sitting Blood Pressure Position [Right Arm] Sitting Lying Pulse Oximetry 94 95 98 Oxygen Delivery Method Room Air Room Air Room Air Sepsis Recent Fever Within 48 Hours No Sepsis New/Unexplained Change in Mental Status No Sepsis Action Taken by Nursing No Action Required Home Medications Current Medication List: was personally reviewed by me Laboratory Data Attestation: I reviewed the patient's lab results. Result diagrams: 10/05/22 00:15 10/05/22 00:15 Lab Results 10/05/22 10/05/22 10/05/22 Range/Units 00:15 00:15 00:15 WBC 6.49 (4.8-10.8) K/ul RBC 4.85 (4.63-6.08) M/uL Hgb 16.0 (14.0-18.0) g/dl Hct 45.0 (40.1-51.0) % MCV 92.8 (80.0-100.0) fL MCH 33.0 (25.0-34.0) pg MCHC 35.6 (32.0-36.0) g/dL RDW Std Deviation 41.4 (36.4-46.3) fL RDW Coeff of Bryanna 12.1 (11.5-14.5) % Plt Count 215 (130-400) K/uL MPV 9.8 (9.4-12.4) fL Immature Gran % (Auto) 0.2 % Neut % (Auto) 59.5 % Lymph % (Auto) 32.7 % Bowie % (Auto) 5.9 % Eos % (Auto) 0.8 % Baso % (Auto) 0.9 % Neut # (Auto) 3.87 (1.4-6.5) K/uL Lymph # (Auto) 2.12 (1.2-3.4) K/uL Bowie # (Auto) 0.38 (0.24-0.82) K/uL Eos # (Auto) 0.05 (0-0.50) K/uL Baso # (Auto) 0.06 (0-0.2) K/uL Immature Gran # (Auto) 0.01 (0.00-0.02) K/uL Sodium 138 (136-145) mmol/L Potassium 3.6 (3.5-5.1) mmol/L Chloride 102 (98-107) mmol/L Carbon Dioxide 26 (21-32) mmol/L Anion Gap 10 (3-11) BUN 13 (6-23) mg/dl Creatinine 0.74 (0.6-1.4) mg/dl Est Cr Clr Drug Dosing 154.0 ml/min Est GFR ( Amer) 142.5 ml/min Est GFR (Non-Af Amer) 122.9 ml/min BUN/Creatinine Ratio 17.6 (10-20) Glucose 203 H (70-99(Fasting)) mg/dl Calcium 8.8 (8.5-10.1) mg/dl Total Bilirubin 0.7 (0.2-1.0) mg/dl AST 43 H (13-39) U/L ALT 22 (7-52) U/L Alkaline Phosphatase 47 (34-104) U/L Total Protein 7.1 (6.0-8.3) gm/dl Albumin 4.4 (3.4-5.0) gm/dl Globulin 2.7 (2.5-4.0) gm/dl Albumin/Globulin Ratio 1.6 (0.9-2) TSH 2.304 (0.300-4.500) uIu/ml Urine Color Urine Appearance (Clear) Urine pH (4.5-7.5) Ur Specific [place] (1.000-1.030) Urine Protein (Negative) Urine Glucose (UA) (Negative) Urine Ketones (Negative) Urine Blood (Negative) Urine Nitrite (Negative) Urine Bilirubin (Negative) Urine Urobilinogen (Negative) Ur Leukocyte Esterase (Negative) Salicylates (3.0-30) mg/dl Urine Opiates Screen (Neg) Ur Methadone, Qual (Neg) Acetaminophen (10-30) ug/ml Urine Barbiturates (Neg) Ur Phencyclidine (PCP) (Neg) U Amphetamin/Meth Scrn (Neg) MDMA (Ecstasy) Screen (Neg) U Benzodiazepines Scrn (Neg) Ur Cocaine Metabolite (Neg) U Marijuana (THC) Screen (Neg) Ethyl Alcohol mg/dL (<10.0) mg/dl SARS-CoV-2, RNA, NAAT (NEGATIVE) 10/05/22 10/05/22 10/05/22 Range/Units 00:15 00:15 00:18 WBC (4.8-10.8) K/ul RBC (4.63-6.08) M/uL Hgb (14.0-18.0) g/dl Hct (40.1-51.0) % MCV (80.0-100.0) fL MCH (25.0-34.0) pg MCHC (32.0-36.0) g/dL RDW Std Deviation (36.4-46.3) fL RDW Coeff of Bryanna (11.5-14.5) % Plt Count (130-400) K/uL MPV (9.4-12.4) fL Immature Gran % (Auto) % Neut % (Auto) % Lymph % (Auto) % Bowie % (Auto) % Eos % (Auto) % Baso % (Auto) % Neut # (Auto) (1.4-6.5) K/uL Lymph # (Auto) (1.2-3.4) K/uL Bowie # (Auto) (0.24-0.82) K/uL Eos # (Auto) (0-0.50) K/uL Baso # (Auto) (0-0.2) K/uL Immature Gran # (Auto) (0.00-0.02) K/uL Sodium (136-145) mmol/L Potassium (3.5-5.1) mmol/L Chloride (98-107) mmol/L Carbon Dioxide (21-32) mmol/L Anion Gap (3-11) BUN (6-23) mg/dl Creatinine (0.6-1.4) mg/dl Est Cr Clr Drug Dosing ml/min Est GFR ( Amer) ml/min Est GFR (Non-Af Amer) ml/min BUN/Creatinine Ratio (10-20) Glucose (70-99(Fasting)) mg/dl Calcium (8.5-10.1) mg/dl Total Bilirubin (0.2-1.0) mg/dl AST (13-39) U/L ALT (7-52) U/L Alkaline Phosphatase (34-104) U/L Total Protein (6.0-8.3) gm/dl Albumin (3.4-5.0) gm/dl Globulin (2.5-4.0) gm/dl Albumin/Globulin Ratio (0.9-2) TSH (0.300-4.500) uIu/ml Urine Color Urine Appearance (Clear) Urine pH (4.5-7.5) Ur Specific [place] (1.000-1.030) Urine Protein (Negative) Urine Glucose (UA) (Negative) Urine Ketones (Negative) Urine Blood (Negative) Urine Nitrite (Negative) Urine Bilirubin (Negative) Urine Urobilinogen (Negative) Ur Leukocyte Esterase (Negative) Salicylates < 3.0 L (3.0-30) mg/dl Urine Opiates Screen (Neg) Ur Methadone, Qual (Neg) Acetaminophen < 3 L (10-30) ug/ml Urine Barbiturates (Neg) Ur Phencyclidine (PCP) (Neg) U Amphetamin/Meth Scrn (Neg) MDMA (Ecstasy) Screen (Neg) U Benzodiazepines Scrn (Neg) Ur Cocaine Metabolite (Neg) U Marijuana (THC) Screen (Neg) Ethyl Alcohol mg/dL 308.3 H (<10.0) mg/dl SARS-CoV-2, RNA, NAAT NEGATIVE (NEGATIVE) 10/05/22 10/05/22 Range/Units 01:15 01:15 WBC (4.8-10.8) K/ul RBC (4.63-6.08) M/uL Hgb (14.0-18.0) g/dl Hct (40.1-51.0) % MCV (80.0-100.0) fL MCH (25.0-34.0) pg MCHC (32.0-36.0) g/dL RDW Std Deviation (36.4-46.3) fL RDW Coeff of Bryanna (11.5-14.5) % Plt Count (130-400) K/uL MPV (9.4-12.4) fL Immature Gran % (Auto) % Neut % (Auto) % Lymph % (Auto) % Bowie % (Auto) % Eos % (Auto) % Baso % (Auto) % Neut # (Auto) (1.4-6.5) K/uL Lymph # (Auto) (1.2-3.4) K/uL Bowie # (Auto) (0.24-0.82) K/uL Eos # (Auto) (0-0.50) K/uL Baso # (Auto) (0-0.2) K/uL Immature Gran # (Auto) (0.00-0.02) K/uL Sodium (136-145) mmol/L Potassium (3.5-5.1) mmol/L Chloride (98-107) mmol/L Carbon Dioxide (21-32) mmol/L Anion Gap (3-11) BUN (6-23) mg/dl Creatinine (0.6-1.4) mg/dl Est Cr Clr Drug Dosing ml/min Est GFR ( Amer) ml/min Est GFR (Non-Af Amer) ml/min BUN/Creatinine Ratio (10-20) Glucose (70-99(Fasting)) mg/dl Calcium (8.5-10.1) mg/dl Total Bilirubin (0.2-1.0) mg/dl AST (13-39) U/L ALT (7-52) U/L Alkaline Phosphatase (34-104) U/L Total Protein (6.0-8.3) gm/dl Albumin (3.4-5.0) gm/dl Globulin (2.5-4.0) gm/dl Albumin/Globulin Ratio (0.9-2) TSH (0.300-4.500) uIu/ml Urine Color Yellow Urine Appearance Clear (Clear) Urine pH 6.5 (4.5-7.5) Ur Specific [place] 1.013 (1.000-1.030) Urine Protein Negative (Negative) Urine Glucose (UA) Negative (Negative) Urine Ketones Negative (Negative) Urine Blood Negative (Negative) Urine Nitrite Negative (Negative) Urine Bilirubin Negative (Negative) Urine Urobilinogen Negative (Negative) Ur Leukocyte Esterase Negative (Negative) Salicylates (3.0-30) mg/dl Urine Opiates Screen Neg (Neg) Ur Methadone, Qual Neg (Neg) Acetaminophen (10-30) ug/ml Urine Barbiturates Neg (Neg) Ur Phencyclidine (PCP) Neg (Neg) U Amphetamin/Meth Scrn Neg (Neg) MDMA (Ecstasy) Screen Neg (Neg) U Benzodiazepines Scrn Pos H (Neg) Ur Cocaine Metabolite Neg (Neg) U Marijuana (THC) Screen Neg (Neg) Ethyl Alcohol mg/dL (<10.0) mg/dl SARS-CoV-2, RNA, NAAT (NEGATIVE) Administered Medications Enoxaparin Sodium (Enoxaparin Inj 40 Mg/0.4 Ml Syr) 40 mg SQ Q24H [facility] Stop: 11/04/22 08:59 Last Admin: 10/05/22 09:30 Dose: 40 mg Documented By: SIRENA Gabapentin (Gabapentin 600 Mg Tab) 600 mg PO Q12H [facility] Stop: 10/07/22 22:01 Last Admin: 10/05/22 16:27 Dose: 600 mg Documented By: HM Gabapentin (Gabapentin 600 Mg Tab) 600 mg PO Q6H [facility] Stop: 10/05/22 21:01 Last Admin: 10/05/22 16:27 Dose: 600 mg Documented By: SIRENA Lactated Ringer's (Lr) 1,000 mls @ 125 mls/hr IV .Q8H [facility] Stop: 10/06/22 00:09 Last Infusion: 10/05/22 12:00 Dose: 125 mls/hr Documented By: Infusion: 10/05/22 09:40 Dose: 0 mls/hr Documented By: Admin: 10/05/22 09:29 Dose: 125 mls/hr Documented By: SIRENA Lorazepam 1 mg/ Syringe 1 mls @ 2 mls/min IV UD PRN; Protocol PRN Reason: EtOH Withdrawal AWSS Score 6,7 Stop: 11/04/22 08:09 Last Admin: 10/05/22 16:27 Dose: 2 mls/min Documented By: SIRENA Insulin Aspart (Insulin Aspart Per Unit) 0 units SC ACHS [facility] Stop: 11/04/22 08:09 Last Admin: 10/05/22 17:21 Dose: Not Given Documented By: Admin: 10/05/22 12:05 Dose: Not Given Documented By: Admin: 10/05/22 09:43 Dose: Not Given Documented By: Pantoprazole Sodium (Pantoprazole 40 Mg Tab) 40 mg PO QAM [facility] Stop: 11/04/22 08:59 Last Admin: 10/05/22 09:29 Dose: 40 mg Documented By: Thiamine HCl (Thiamine Hcl 100 Mg Tab) 100 mg PO DAILY [facility] Stop: 11/04/22 08:59 Last Admin: 10/05/22 09:29 Dose: 100 mg Documented By: Discontinued Medications Chlordiazepoxide HCl (Chlordiazepoxide Hcl 25 Mg Cap) 100 mg PO NOW ONE Stop: 10/05/22 00:33 Last Admin: 10/05/22 00:52 Dose: 100 mg Documented By: GAEL Gabapentin (Gabapentin 600 Mg Tab) 1,200 mg PO NOW ONE Stop: 10/05/22 08:11 Last Admin: 10/05/22 09:30 Dose: 1,200 mg Documented By: SIRENA Multivitamins 10 ml/ Thiamine HCl 100 mg/ Folic Acid 1 mg/Sodium Chloride 1,011.2 mls @ 500 mls/hr IV .Q2H2M ONE Stop: 10/05/22 10:31 Last Infusion: 10/05/22 11:58 Dose: 0 mls/hr Documented By: Admin: 10/05/22 09:29 Dose: 500 mls/hr Documented By: SIRENA Lorazepam (Lorazepam 1 Mg Tab) 3 mg PO ONCE PRN; Protocol PRN Reason: EtOH Withdrawal AWSS Score 10 & above Last Admin: 10/05/22 05:06 Dose: 3 mg Documented By: [facility] Discharge Plan Visit Data Chief Complaint: Mental Health Evaluation Stated Complaint: SUICIDAL THOUGHTS,ALCOHOL WD ED Provider: Wilman Cobos Discharge Problem: Alcohol abuse, Depression with suicidal ideation Patient Disposition: Admitted As Inpatient Discharge Instructions Interventions: ED Discharge Assessment Last Done: 10/05/22 07:33
[2022-10-05 00:39] LABS: Basophils # (auto) 0.06 K/uL (0-0.2); Basophils % (auto) 0.9 %; Eosinophils # (auto) 0.05 K/uL (0-0.50); Eosinophils % (auto) 0.8 %; Immature Granulocytes # (auto) 0.01 K/uL (0.00-0.02); Immature Granulocytes % (auto) 0.2 %; Lymphocytes # (auto) 2.12 K/uL (1.2-3.4); Lymphocytes % (auto) 32.7 %; Mean Corpuscular Hgb Conc 35.6 g/dL (32.0-36.0); Mean Corpuscular Volume 92.8 fL (80.0-100.0); Mean Platelet Volume 9.8 fL (9.4-12.4); Monocytes # (auto) 0.38 K/uL (0.24-0.82); Monocytes % (auto) 5.9 %; Neutrophils # (auto) 3.87 K/uL (1.4-6.5); Neutrophils % (auto) 59.5 %; Platelet Count 215 K/uL (130-400); RDW Coefficient of Variation 12.1 % (11.5-14.5); RDW Standard Deviation 41.4 fL (36.4-46.3); Red Blood Count 4.85 M/uL (4.63-6.08); White Blood Count 6.49 K/ul (4.8-10.8)
[2022-10-05 01:08] LABS: Acetaminophen < 3 ug/ml (10-30); Salicylate < 3.0 mg/dl (3.0-30)
[2022-10-05 01:10] LABS: Albumin Globulin Ratio 1.6 (0.9-2); Albumin Level 4.4 gm/dl (3.4-5.0); BUN Creatinine Ratio 17.6 (10-20); Bilirubin,Total 0.7 mg/dl (0.2-1.0); Calcium 8.8 mg/dl (8.5-10.1); Est GFR (African American) 142.5 ml/min; Est GFR (Non-African American) 122.9 ml/min; Globulin 2.7 gm/dl (2.5-4.0); Potassium 3.6 mmol/L (3.5-5.1); Total Protein 7.1 gm/dl (6.0-8.3)
[2022-10-05 01:32] LABS: Appearance Urine Clear (Clear); Bilirubin Urine Negative (Negative); Blood Urine Negative (Negative); Color Urine Yellow; Glucose Urine UA Negative (Negative); Ketones Urine Negative (Negative); Leukocyte Esterase Urine Negative (Negative); Nitrite Urine Negative (Negative); Protein Urine Negative (Negative); Specific Gravity Urine 1.013 (1.000-1.030); Urobilinogen Urine Negative (Negative); pH Urine 6.5 (4.5-7.5)
[2022-10-05 02:27] LABS: Amphetamines+Metham, Urine Neg (Neg); Barbiturates, Urine Neg (Neg); Benzodiazepine, Urine Pos (Neg); Cocaine, Urine Neg (Neg); MDMA (Ecstacy), Urine Neg (Neg); Methadone, Urine Neg (Neg); Opiate, Urine Neg (Neg); Phencyclidine, Urine Neg (Neg)
--- NOTE | 2022-10-05 05:13 | Emergency Department Note ---
ED Visit Note Patient was signed out to me at change of shift by Dr. Wyman, pending reevaluation when more sober. Patient is well-known to this emergency departm ent, presents tonight with alcohol intoxication and suicidal thoughts. On my assessment at approximately 0500 patient is already been seen by case management, he is being dosed with Ativan for withdrawal symptoms per CIWA scale. On my assessment the patient is mildly tremulous, tells me he is having hallucinations of seeing people. He does appear to be in mild to moderate withdrawal. Patient will be admitted to the medicine service per his usual for history of withdrawal and psychiatric consultation given his suicidal thoughts. He is a relatively poor historian but does admit to some thoughts of self-harm recently. He arrives voluntarily and is currently under 201, case management will petition a 302 for backup to use if needed. [facility] hospitalist service was consulted for admission. .
--- NOTE | 2022-10-05 05:43 | History & Physical Report ---
Date of Service October 05, 2022 Assessment & Plan (1) Alcohol abuse with withdrawal: Plan: Patient is once again with alcohol withdrawal. Patient had a blood alcohol of 300 presentation. He states his last drink was around 11 PM on 10/04/2022 he is having hallucinations and tremors. Both much improved with Ativan he is not having alcohol hepatitis. Patient be given a banana bag and initiated on gabapentin active withdrawal protocol and Ativan RUT status. Continues on p.o. thiamine Suicide precautions and a one-to-one for now (2) Suicidal ideations: Plan: Patient is once again suicidal he is well-known to our psychiatric providers once he has his hallucinations under control psychiatric consultation will be garnered to determine whether he truly is a danger to himself (3) Depression, unspecified: Plan: In the past has been concern of using SSRI with his continued alcohol use Plan Patient continues on PPI and he will be on enoxaparin for DVT prevention History of Present Illness Primary Care Provider: Bri Cervantes MD 32-year-old male history of alcohol abuse and alcohol withdrawal has been admitted many times for the same. Patient was last discharged in our facility September 24, 2022. In August patient is similar episode of presentation when he was not deemed a threat to candidate for psychiatry he left [facility]. In his hospital stay in September he also was deemed not to be suicidal once he sobered up and was discharged. This hospital stay the patient also presents with suicidal ideation with plan to treat himself to and not eat. Reporting to the ER doctor that he also thought about cutting himself. Patient states history drinking about 30 shots of vodka daily since his discharge. the patient was hallucinating but as the night went on he began having tremulousness and hallucinations patient has been on the outpatient Vivitrol shot. Patient has been seeing outpatient psychiatric providers. Is also involved in [place] for alcohol withdrawal. At his last discharge he was on a taper of both Librium and gabapentin set up for his Vivitrol shot Allergies Allergy/AdvReac Type Severity Reaction Status Date / Time bupropion [From Wellbutrin] AdvReac Severe anxiety, Verified 09/25/22 11:17 confussion buspirone [From BuSpar] AdvReac Intermediate Shaking/john Verified 09/25/22 11:17 mor gluten AdvReac Unknown Unknown Verified 09/25/22 11:17 milk AdvReac Unknown Unknown Verified 09/25/22 11:17 antihistamines AdvReac Intermediate "Just Uncoded 09/25/22 11:17 Don't Feel Right When I Take Them" Home Medications Medication Instructions Recorded Confirmed Type fexofenadine 180 mg tablet 180 mg PO QAM PRN Other 07/27/22 09/25/22 History clonidine HCl 0.1 mg tablet 0.1 mg PO 2XD 09/10/22 09/25/22 History chlordiazepoxide HCl 25 mg capsule See Rx Instructions .Route 09/24/22 09/25/22 Rx .COMPLEX anxiety #6 caps cyanocobalamin (vitamin B-12) 500 1,000 mcg PO QAM #30 tabs 09/24/22 09/25/22 Rx mcg tablet folic acid 1 mg tablet 1 mg PO QAM #30 tabs 09/24/22 09/25/22 Rx gabapentin 300 mg capsule 300 mg PO TID #6 caps 09/24/22 09/25/22 Rx pantoprazole 40 mg tablet,delayed 40 mg PO QAM #30 tabs 09/24/22 09/25/22 Rx release thiamine HCl (vitamin B1) 100 mg 100 mg PO DAILY #30 tabs 09/24/22 09/25/22 Rx tablet 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 Alcoholic hepatitis Anxiety and depression Anxiety disorder, unspecified Chest pain Depression with suicidal ideation Depressive disorder Diplopia Dizziness Elevated liver enzymes BRITTNY (generalized anxiety disorder) BRITTNY (generalized anxiety disorder) Headache Homicidal ideation Hypokalemia Lab test negative for COVID-19 virus Left leg cellulitis No pertinent family history Pain, dental Post traumatic stress disorder (PTSD) Post traumatic stress disorder (PTSD) Self-harming behavior Suicidal behavior Suicidal ideation Tobacco abuse Surgical History No pertinent past surgical history Family History Other No significant family history Social History Smoking Status: Current every day smoker Tobacco Type: Cigarettes Cigarettes Per Day: 1 PPD; Second Hand Exposure: No; Hx Alcohol Use: Yes Alcohol type: beer and hard liquor Hx Substance Use: No Preferred Language: Sami Communication Ability: Unable Visual Impairment: No Limitations Hearing Ability: Normal Fuel Agent Required: No Beliefs That Will Affect Care: None marital status: Current Living Situation: Family Current Living Situation Comment: Living with brother current occupational status: employed How many Children do You have: 1 Feels Safe at Home: Yes Childhood Exposure to Second-Hand Smoke: No Dental Care, Regularly: Yes Physical Activity Frequency: Daily Seatbelt Use: always Sunscreen Use: No Assistive Devices: None Review of Systems Review of Systems: Mod distress and fatigue no headache, no visual changes but is having visual hallucinations no speech or swallowing issues no chest pain, pressure or palpitations no shortness of breath, cough or wheezes no abdominal pain, nausea or vomiting, diarrhea or constipation no dysuria, hematuria or frequency no focal joint pain or swelling no back pain, CVA tenderness or radicular pain no bruising, bleeding or rashes no focal signs of weakness or numbness or altered sensation Complains of both anxiety and depression Physical Exam Physical Exam: The patient appeared well nourished and normally developed. He was playing courteous but admitted to seeing visual hallucinations of water changing into animals Vital signs as documented. Head exam is normocephalic atraumatic Neck is without JVD, thyromegaly, or carotid bruits. Lungs are clear to auscultation, no focal loss of breath sounds Cardiac exam, Rhythm is regular.. No murmurs, rubs or gallops. Abdominal exam reveals normal bowel sounds, soft non tender, no masses Extremities are nonedematous and both pedal pulses are present Neurologic exam is alert and oriented, no focal loss of strength or sensation there is a some tremor of his hands Skin is without bruises or rashes Psychologically is with concerned for depression possible self-harm thoughts Results & Data Results & Data ([facility]) Vital Signs (Past 12 Hours) Vital Signs Temp Pulse Pulse Resp BP BP Pulse Ox 10/05/22 04:00 103 H 18 132/72 98 10/05/22 00:09 111 H 18 139/94 95 12/14/22 23:53 98.8 F 118 H 18 139/90 94 O2 Del Method 10/05/22 04:00 Room Air 10/05/22 00:09 Room Air 10/04/22 23:53 Room Air Code Status & VTE Plan VTE Prophylaxis Plan VTE Prophylaxis will be ordered: Yes PG Care Time/CCT Total # of Minutes Spent Total Time Spent with Patient: Total time spent is greater than 50% in coordination of care (as documented) at patient's floor/unit and/or counseling patient: Coding Level of Care Code 78250 Initial Inpt Care Lvl 3 Diagnoses Alcohol abuse with withdrawal F10.139 Suicidal ideations R45.851 Depression, unspecified F33.1 Active/Remission status: currently active Depression Type: major depressive disorder Major depression episode severity: moderate Major depression recurrence: recurrent (1) Depression, unspecified Active/Remission status: currently active Depression Type: major depressive disorder Major depression episode severity: moderate Major depression recurrence: recurrent Qualified Code(s): F33.1 - Major depressive disorder, recurrent, moderate
[2022-10-05] MEDS ORDERED: CARBOHYDRATES FOR HYPOGLYCEMIA PO PRN (08:10)
[2022-10-05] MEDS ORDERED: GABAPENTIN 1200MG ALCOHOL WITHDRAWAL LOAD PO STA (08:10)
[2022-10-05] MEDS ORDERED: GABAPENTIN 600 MG TAB PO ONE (08:10)
[2022-10-05] MEDS ORDERED: Ativan IV Alcohol Withdrawal--Active Protocol IV PRN (08:10)
[2022-10-05] MEDS ORDERED: GLUCOSE 10 TAB/TUBE PO PRN (08:10)
[2022-10-05] MEDS ORDERED: ALUMINUM/MAGNESIUM SUSP 30 ML UDC PO PRN (08:10)
[2022-10-05] MEDS ORDERED: GLUCOSE 40% GEL 15 GM TUBE PO PRN (08:10)
[2022-10-05] MEDS ORDERED: DEXTROSE 50% 50 ML SYRINGE IV PRN (08:10)
[2022-10-05] MEDS ORDERED: GLUCAGON FOR INJ 1 MG VIAL SQ PRN (08:10)
[2022-10-05] MEDS ORDERED: LORazepam 3 MG in SYRINGE 0 ML IV PRN (08:10)
[2022-10-05] MEDS ORDERED: LORazepam 2 MG in SYRINGE 0 ML IV PRN (08:10)
[2022-10-05] MEDS ORDERED: MULTI-VITAMIN INFUSION 10 ML, THIAMINE HCL 100 MG, FOLIC ACID 1 MG in SODIUM CHLORIDE 0... IV ONE (08:30)
[2022-10-05] MEDS: PANTOprazole 40 MG TAB PO SCH (09:29)
[2022-10-05] MEDS: LACTATED RINGER'S 1,000 ML IV SCH ×2 (09:29→19:55)
[2022-10-05] MEDS: THIAMINE HCL 100 MG TAB PO SCH (09:29)
[2022-10-05] MEDS: ENOXAPARIN INJ 40 MG/0.4 ML SYR SQ SCH (09:30)
[2022-10-05] MEDS: INSULIN ASPART PER UNIT SC SCH ×4 (09:43→20:51)
--- NOTE | 2022-10-05 11:15 | History & Physical Bridge Note ---
Date of Service October 05, 2022 History & Physical Bridge Note I have examined the patient, reviewed the History & Physical and in the interval since the performance of the History & Physical I have noted the following changes of clinical significance: no changes noted Seen this morning. Comfortable with no signs of withdrawal. HR and BP stable. Will continue plan as per Dr. Baird's H&P.
--- NOTE | 2022-10-05 11:45 | Psychiatric Consultation ---
Date of Consultation October 05, 2022 Impression / Recommendations Impression 32 yo man with severe alcohol use disorder, depression, anxiety and PTSD with 20 hospital presentations over the last year for alcohol and mood related symptoms. Acute self-harm is high-moderate given ongoing SI, depression, alcohol use, and poor insight. Recommendation is for dual diagnosis inpatient treatment once medically stable which he is agreeable to at this time. Given acute withdrawal will hold off on starting an SSRI at this point with goal of trial of sertraline or fluoxetine once medically stable and option to restart naltrexone at that point as well. (1) Depression with suicidal ideation: (2) Alcohol use disorder, severe, dependence: (3) Major depressive disorder, recurrent episode: Major depression episode severity: unspecified Qualified Code(s): F33.9 - Major depressive disorder, recurrent, unspecified (4) Anxiety: Plan -Continue 1-on-1 and suicide precautions -Continue AWSS with thiamine, folic acid and gabapentin -Once medically stable will pursue inpatient dual diagnosis referrals -Cannot leave AMA, if attempts contact psych liason to pursue 302 warrant given ongoing SI Risk Factors Assessment Male: Yes : Yes Do You Have Access To A Gun?: No Mental Health Diagnoses: Yes Substance Use Disorders: Yes Previous Attempt: No Previous Psychiatric Hospitalization: Yes Hopelessness: Yes Protective Factors Assessment 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 Psychiatry consulted for risk assessment and recommendations. Chief Complaint "I'm really really depressed a lot". History of Present Illness Chun presented to the ED early this morning with SI and plan to drink himself to or cut himself and was admitted medically due to alcohol intoxication with hallucinations and signs of complicated withdrawal. This is his 20th presentation in 2021 to [facility] for some type of alcohol and/or mood related symptoms. He was discharged from the medical floor last on 09/24/2022 for alcohol withdrawal and SI while intoxicated but this resolved and he was not felt to meet criteria for involuntary commitment. Today he reports ongoing depression stating this is the most severe it has been with anhedonia, lack of motivation, self-guilt, low energy and ongoing SI but without plan or intent today. Has been spending his days lying on the couch all day which is a change for him. States his alcohol use is worsening as now "I was able to function for years but now I'm weak and falling". His use has decreased a bit, has been drinking 25-30 shots per day since discharge on 09/24/22. He last got a Vivitrol injection one month, says he missed his last injection which he thinks would have been last week. He hasn't been taking gabapentin as it causes him to have eye pain/pressure. Was experiencing command AH when lying on the couch at home and again last night in the ED. Denies today. Past Psychiatric History Current Psychiatric Diagnosis: MDD, BRITTNY, PTSD Previous Psych Admissions: multiple: Reviewed presentations to the hospital since 2021: 11/23/2021: medical admission for alcohol withdrawal 12/03/2021: ED presentation for alcohol intoxication 01/02/2022: medical admission to ICU for alcohol withdrawal 01/30/2022: ED presentation for alcohol intoxication 02/24/2022: ED presentation for alcohol intoxication and head trauma from drinking 03/07/22: ED presentation for alcohol intoxication and head trauma from drinking 04/09/2022: medical admission for alcohol withdrawal 06/07/2022: ED presentation for alcohol intoxication 06/19/2022: ED presentation for alcohol intoxication 06/21/2022 - 06/24/2022: medical admission for alcohol intoxication 06/25/2022 - 06/30/2022:[facility] and [facility] 07/13/2022 - 07/17/2022:[facility] 07/26/2022: ED presentation for alcohol intoxication and transferred [facility] inpatient psychiatry 08/12/2022: ED presentation for alcohol intoxication 08/18/2022: medical admission for alcohol withdrawal 08/20/2022: inpt psych admission [facility] 09/11/2022: med admission for alcohol withdrawal 09/21/2022: med admission for alcohol withdrawal 10/05/2022: med admission for alcohol withdrawal Do You Have Access To A Gun?: No History of Previous Suicide Attempt: No Past Medication Trials: mirtazapine (didn't work), Wellbutrin, gabapentin, lexapro (recalls being very anxious), Librium (the best one that helped me with everything, helped me be the most level with stopping alcohol), naltrexone Allergies Allergy/AdvReac Type Severity Reaction Status Date / Time bupropion [From Wellbutrin] AdvReac Severe anxiety, Verified 09/25/22 11:17 confussion buspirone [From BuSpar] AdvReac Intermediate Shaking/john Verified 09/25/22 11:17 mor gluten AdvReac Unknown Unknown Verified 09/25/22 11:17 milk AdvReac Unknown Unknown Verified 09/25/22 11:17 antihistamines AdvReac Intermediate "Just Uncoded 09/25/22 11:17 Don't Feel Right When I Take Them" Home Medications Medication Instructions Recorded Confirmed Type fexofenadine 180 mg tablet 180 mg PO QAM PRN Other 07/27/22 09/25/22 History clonidine HCl 0.1 mg tablet 0.1 mg PO 2XD 09/10/22 09/25/22 History chlordiazepoxide HCl 25 mg capsule See Rx Instructions .Route 09/24/22 09/25/22 Rx .COMPLEX anxiety #6 caps cyanocobalamin (vitamin B-12) 500 1,000 mcg PO QAM #30 tabs 09/24/22 09/25/22 Rx mcg tablet folic acid 1 mg tablet 1 mg PO QAM #30 tabs 09/24/22 09/25/22 Rx gabapentin 300 mg capsule 300 mg PO TID #6 caps 09/24/22 09/25/22 Rx pantoprazole 40 mg tablet,delayed 40 mg PO QAM #30 tabs 09/24/22 09/25/22 Rx release thiamine HCl (vitamin B1) 100 mg 100 mg PO DAILY #30 tabs 09/24/22 09/25/22 Rx tablet Family History sign fam hx alcohol use and substance use disorders Substance Abuse History alcohol severe-see HPI Personal History Living Arrangements: Home Childhood: significant trauma Highest Grade Completed: High School Graduate Employment Status: Unemployed Marital Status: Beliefs That Will Affect Care: None 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 Alcoholic hepatitis Anxiety and depression Anxiety disorder, unspecified Chest pain Depression with suicidal ideation Depressive disorder Diplopia Dizziness Elevated liver enzymes BRITTNY (generalized anxiety disorder) BRITTNY (generalized anxiety disorder) Headache Homicidal ideation Hypokalemia Lab test negative for COVID-19 virus Left leg cellulitis No pertinent family history Pain, dental Post traumatic stress disorder (PTSD) Post traumatic stress disorder (PTSD) Self-harming behavior Suicidal behavior Suicidal ideation Tobacco abuse Surgical History No pertinent past surgical history Family History Other No significant family history Social History Smoking Status: Never smoker Tobacco Type: Cigarettes Cigarettes Per Day: 1 PPD; Second Hand Exposure: No; Hx Alcohol Use: Yes Alcohol type: hard liquor Hx Substance Use: No Preferred Language: Pakistani Communication Ability: Effective Visual Impairment: No Limitations Hearing Ability: Normal Chemical Milling Processor Required: No Beliefs That Will Affect Care: None marital status: Current Living Situation: Family Current Living Situation Comment: Living with brother current occupational status: employed How many Children do You have: 1 Feels Safe at Home: Yes Childhood Exposure to Second-Hand Smoke: No Dental Care, Regularly: Yes Physical Activity Frequency: Daily Seatbelt Use: always Sunscreen Use: No Assistive Devices: None Physical Exam Psychiatric: Orientation: alert and oriented x 3 Apperance: appropriately dressed and appropriately groomed Eye Contact: good eye contact Motor Behavior: no abnormal motor movements Speech: normal rate/rhythm/volume of speech Affect: + depressed affect and + anxious affect Mood: + depressed mood and + anxious mood Thought Process: + concrete thought process Thought Content: reality based without delusions Suicidal Thoughts: denies suicidal plan and denies suicidal intent; + reports suicidal thoughts Homicidal Thoughts: denies homicidal thoughts Hallucinations: no auditory hallucinations and no visual hallucinations Cognition: recent memory grossly intact, remote memory grossly intact, attention grossly intact and language grossly intact Estimated Intelligence: consistent with education level Insight: + limited insight Judgement: + poor judgement Vital Signs (Past 24 Hours): Last Vital Signs Temp 36.4 C L 10/05/22 07:45 Pulse 76 10/05/22 08:10 Resp 18 10/05/22 07:45 BP 114/77 10/05/22 07:45 Pulse Ox 96 10/05/22 07:45 O2 Del Method 10/05/22 07:45 Review of Systems All systems reviewed & are unremarkable except as noted in HPI & below Results & Data (PSY) Medications Administered Enoxaparin Sodium (Enoxaparin Inj 40 Mg/0.4 Ml Syr) 40 mg SQ Q24H XIOMY Stop: 11/04/22 08:59 Last Admin: 10/05/22 09:30 Dose: 40 mg Documented By: SIRENA Lactated Ringer's (Lr) 1,000 mls @ 125 mls/hr IV .Q8H XIOMY Stop: 10/06/22 00:09 Last Infusion: 10/05/22 09:40 Dose: 0 mls/hr Documented By: Admin: 10/05/22 09:29 Dose: 125 mls/hr Documented By: SIRENA Insulin Aspart (Insulin Aspart Per Unit) 0 units SC ACHS XIOMY Stop: 11/04/22 08:09 Last Admin: 10/05/22 09:43 Dose: Not Given Documented By: SIRENA Pantoprazole Sodium (Pantoprazole 40 Mg Tab) 40 mg PO QAM XIOMY Stop: 11/04/22 08:59 Last Admin: 10/05/22 09:29 Dose: 40 mg Documented By: SIRENA Thiamine HCl (Thiamine Hcl 100 Mg Tab) 100 mg PO DAILY XIOMY Stop: 11/04/22 08:59 Last Admin: 10/05/22 09:29 Dose: 100 mg Documented By: SIRENA Coding Level of Care Code 86667 Inpt Consult Level 3 Diagnoses Depression with suicidal ideation F32.A; R45.851 Alcohol use disorder, severe, dependence F10.20 Major depressive disorder, recurrent episode F33.9 Major depression episode severity: unspecified Anxiety F41.9
[2022-10-05] MEDS: GABAPENTIN 600 MG TAB PO SCH ×3 (16:27→19:54)
[2022-10-05] MEDS: LORazepam 1 MG in SYRINGE 0 ML IV PRN ×3 (16:27→22:59)
[2022-10-06] MEDS: GABAPENTIN 600 MG TAB PO SCH ×3 (05:46→20:26)
[2022-10-06 07:31] LABS: Estimated Average Glucose 97 mg/dl
[2022-10-06 07:47] LABS: Anion Gap 5 (3-11); BUN Creatinine Ratio 13.8 (10-20); Blood Urea Nitrogen 9 mg/dl (6-23); Calcium 8.5 mg/dl (8.5-10.1); Carbon Dioxide 27 mmol/L (21-32); Chloride 106 mmol/L (98-107); Creatinine Clr Calc Pharmacy 180.7 ml/min; Est GFR (African American) > 150.0 ml/min; Est GFR (Non-African American) 129.6 ml/min; Glucose 89 mg/dl (70-99(Fasting)); Potassium 3.6 mmol/L (3.5-5.1); Sodium 138 mmol/L (136-145)
[2022-10-06] MEDS: ENOXAPARIN INJ 40 MG/0.4 ML SYR SQ SCH (08:59)
[2022-10-06] MEDS: PANTOprazole 40 MG TAB PO SCH (08:59)
[2022-10-06] MEDS: THIAMINE HCL 100 MG TAB PO SCH (08:59)
[2022-10-06] MEDS: LORazepam 1 MG in SYRINGE 0 ML IV PRN ×2 (09:15→20:21)
--- NOTE | 2022-10-06 12:30 | Psychiatric Progress Note ---
Date of Service October 06, 2022 Impression / Recommendations Impression 32 yo man with severe alcohol use disorder, depression, anxiety and PTSD with 20 hospital presentations over the last year for alcohol and mood related symptoms. Acute self-harm is high-moderate given ongoing SI, depression, alcohol use, and poor insight. Recommendation is for dual diagnosis inpatient treatment once medically stable which he is agreeable to at this time. Given acute withdrawal will hold off on starting an SSRI at this point with goal of trial of sertraline or fluoxetine once medically stable and option to restart naltrexone at that point as well. 10/06/22: Plan for dual diagnosis inpatient referrals once medically stable. Acute risk of self-harm remains high given depression with SI and history of impulsivity and periods of hallucinations. (1) Depression with suicidal ideation: (2) Alcohol use disorder, severe, dependence: (3) Major depressive disorder, recurrent episode: (4) Anxiety: Plan -Continue 1-on-1 and suicide precautions -Continue AWSS with thiamine, folic acid and gabapentin -Once medically stable will pursue inpatient dual diagnosis referrals -Cannot leave AMA, if attempts contact psych liason to pursue 302 warrant given ongoing SI Risk Factors Assessment Male: Yes : Yes Do You Have Access To A Gun?: No Mental Health Diagnoses: Yes Substance Use Disorders: Yes Previous Attempt: No Previous Psychiatric Hospitalization: Yes Hopelessness: Yes Protective Factors Assessment Jewish Beliefs: Yes 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 Psychiatry consulted for risk assessment and recommendations. Chief Complaint "It's hard to think about things". Review of Systems Notes sleeping, eating a little Subjective Subjective Patient was seen & assessed and interval progress reviewed. Today feels fewer withdrawal side effects but notes an increase in anxiety. Still feels very de pressed and with SI, though SI is more passive today. Had hallucinations of animals last night but none so far today. Denies any auditory hallucinations nor command AH. Remains motivated and willing for dual diagnosis treatment once medically stable. Physical Exam Psychiatric Orientation: alert and oriented x 3 Apperance: appropriately dressed and appropriately groomed Eye Contact: good eye contact Motor Behavior: no abnormal motor movements Speech: normal rate/rhythm/volume of speech Affect: + depressed affect and + anxious affect Mood: + depressed mood and + anxious mood Thought Process: + concrete thought process Thought Content: reality based without delusions Suicidal Thoughts: denies suicidal plan and denies suicidal intent; + reports suicidal thoughts Homicidal Thoughts: denies homicidal thoughts Hallucinations: no auditory hallucinations and no visual hallucinations Cognition: recent memory grossly intact, remote memory grossly intact, attention grossly intact and language grossly intact Estimated Intelligence: consistent with education level Insight: + limited insight Judgement: + limited judgement Vital Signs (Past 24 Hours) Last Vital Signs Temp 36.6 C 10/06/22 08:18 Pulse 53 L 10/06/22 11:54 Resp 14 10/06/22 08:18 BP 128/75 10/06/22 08:18 Pulse Ox 96 10/06/22 08:18 O2 Del Method 10/06/22 08:18 Results & Data ([facility]) Laboratory Results Laboratory Results - last 24 hr 10/05/22 10/06/22 10/06/22 16:47 06:22 06:22 Sodium 138 Potassium 3.6 Chloride 106 Carbon Dioxide 27 Anion Gap 5 BUN 9 Creatinine 0.65 Est Cr Clr Drug Dosing 180.7 Est GFR ( Amer) > 150.0 Est GFR (Non-Af Amer) 129.6 BUN/Creatinine Ratio 13.8 Glucose 89 POC Glucose 93 Estimat Average Glucose 97 Hemoglobin A1c 5.0 Calcium 8.5 Magnesium 2.0 Current Inpatient Medications Current Inpatient Medications: Current Inpatient Medications Al Hydrox/Mg Hydrox/Simethicone (Aluminum/Magnesium Susp 30 Ml Udc) 15 ml PO Q4H PRN PRN Reason: Dyspepsia Stop: 11/04/22 08:09 Dextrose (Dextrose 50% 50 Ml Syringe) 25 - 50 ml IV UD PRN; Protocol PRN Reason: Hypoglycemia Protocol Stop: 11/04/22 08:09 Enoxaparin Sodium (Enoxaparin Inj 40 Mg/0.4 Ml Syr) 40 mg SQ Q24H XIOMY Stop: 11/04/22 08:59 Last Admin: 10/06/22 08:59 Dose: 40 mg Gabapentin (Gabapentin 600 Mg Tab) 600 mg PO Q12H XIOMY Stop: 10/07/22 22:01 Last Admin: 10/05/22 16:27 Dose: 600 mg Gabapentin (Gabapentin 600 Mg Tab) 600 mg PO Q8H XIOMY Stop: 10/06/22 22:01 Last Admin: 10/06/22 05:46 Dose: 600 mg Gabapentin (Gabapentin 600 Mg Tab) 600 mg PO Q24H XIOMY Stop: 10/08/22 22:01 Glucagon (Glucagon For Inj 1 Mg Vial) 1 mg SQ UD PRN; Protocol PRN Reason: Hypoglycemia Protocol Stop: 11/04/22 08:09 Glucose (Glucose 40% Gel 15 Gm Tube) 15 - 30 gm PO UD PRN; Protocol PRN Reason: Hypoglycemia Protocol Stop: 11/04/22 08:09 Glucose (Glucose 10 Tab/Tube) 4 - 8 tab PO UD PRN; Protocol PRN Reason: Hypoglycemia Treatment Stop: 11/04/22 08:09 Lorazepam 1 mg/ Syringe 1 mls @ 2 mls/min IV UD PRN; Protocol PRN Reason: EtOH Withdrawal AWSS Score 6,7 Stop: 11/04/22 08:09 Last Admin: 10/06/22 09:15 Dose: 2 mls/min Lorazepam 2 mg/ Syringe 2 mls @ 2 mls/min IV UD PRN; Protocol PRN Reason: EtOH Withdrawal AWSS Score 8,9 Stop: 11/04/22 08:09 Lorazepam 3 mg/ Syringe 3 mls @ 2 mls/min IV ONCE PRN; Protocol PRN Reason: EtOH Withdrawal AWSS Score 10 & above Stop: 11/04/22 08:09 Miscellaneous (Carbohydrates For Hypoglycemia ) 15 - 30 gm PO UD PRN PRN Reason: Hypoglycemia Protocol Stop: 11/04/22 08:09 Miscellaneous (Remove Nicoderm Patch) 1 each N/A DAILY@0859 [facility] Stop: 11/06/22 08:58 Nicotine (Nicotine 21 Mg/24 Hr Tdsy) 21 mg TD QAM [facility] Stop: 11/05/22 10:14 Ondansetron HCl (Ondansetron Inj 2 Mg/Ml 2 Ml Vial) 4 mg IV Q6H PRN PRN Reason: Nausea Stop: 11/04/22 08:09 Pantoprazole Sodium (Pantoprazole 40 Mg Tab) 40 mg PO QAM [facility] Stop: 11/04/22 08:59 Last Admin: 10/06/22 08:59 Dose: 40 mg Thiamine HCl (Thiamine Hcl 100 Mg Tab) 100 mg PO DAILY [facility] Stop: 11/04/22 08:59 Last Admin: 12/16/22 08:59 Dose: 100 mg Mental Health & Subst Abuse Tx Therapist Name of Therapist: None Negotiator Name of Negotiator: None - Has healthcare financial analyst with insurance (1) Major depressive disorder, recurrent episode Major depression episode severity: unspecified Qualified Code(s): F33.9 - Major depressive disorder, recurrent, unspecified
[2022-10-06] MEDS: NICOTINE 21 MG/24 HR TDSY TD SCH (12:37)
--- NOTE | 2022-10-06 16:46 | Hospitalist Progress Note ---
Date of Service October 06, 2022 Assessment & Plan (1) Alcohol abuse with withdrawal: Plan: Patient is once again with alcohol withdrawal. Patient had a blood alcohol of 300 presentation. He states his last drink was around 11 PM on 10/04/2022. He is having hallucinations and tremors. Both much improved with Ativan he is not having alcohol hepatitis. - Continue gabapentin - Continue AWSS Ativan protocol - Continues on p.o. thiamine - Suicide precautions and a one-to-one for now (2) Suicidal ideations: Plan: Patient is once again suicidal. - Appreciate psychiatry help; plan for dual diagnosis placement when withdrawal has passed. (3) Tobacco abuse: Plan: - Nicotine patch (4) Depression, unspecified: Plan: In the past has been concern of using SSRI with his continued alcohol use. - Defer to psychiatry. Plan Patient continues on PPI and he will be on enoxaparin for DVT prevention Admission and Anticipated Discharge Date Admission Date: October 05, 2022 Subjective Doing well today. Minimal withdrawal. No major issues other than some nausea. Reports no fevers/chills, chest pain, shortness of breath, abdominal pain, or vomiting. Physical Exam Constitutional: WD/WN, vitals as above Eyes: EOM intact bilaterally; no conjunctival abnormality ENMT: external ear and nose normal, oropharynx normal Mouth: + tongue abnormality (Tongue fasciculations) Neck: trachea midline, no thyromegaly normal visual inspection Respiratory: normal respiratory effort, lungs clear to auscultation no respiratory distress Cardiovascular: RRR, no murmur, no edema Gastrointestinal (Abdomen): Inspection/Auscultation: abdomen normal to inspection; abdomen not distended Musculoskeletal: no cyanosis or clubbing, extremities motor strength 5/5 Skin: no rashes, warm and dry Neurologic: moves all extremities and awake Mild tremor Psychiatric: Orientation: alert, oriented to person and cooperative Results & Data Results & Data ([facility]) Vital Signs (Past 12 Hours) Vital Signs Temp Pulse Pulse Resp BP Pulse Ox O2 Del Method 10/06/22 15:35 36.8 C 80 16 132/89 97 Room Air 10/06/22 12:44 36.6 C 80 14 143/91 H 96 Room Air 10/06/22 11:54 53 L 10/06/22 08:18 36.6 C 71 14 128/75 96 Room Air PG Care Time/CCT Total # of Minutes Spent Total Time Spent with Patient: Total time spent is greater than 50% in coordination of care (as documented) at patient's floor/unit and/or counseling patient: Coding Level of Care Code 92995 Subseq Hosp Care Lvl 3 Diagnoses Alcohol abuse with withdrawal F10.139 Suicidal ideations R45.851 Tobacco abuse Z72.0 Depression, unspecified F33.1 Active/Remission status: currently active Depression Type: major depressive disorder Major depression episode severity: moderate Major depression recurrence: recurrent (1) Depression, unspecified Active/Remission status: currently active Depression Type: major depressive disorder Major depression episode severity: moderate Major depression recurrence: recurrent Qualified Code(s): F33.1 - Major depressive disorder, recurrent, moderate
[2022-10-06] MEDS: ONDANSETRON INJ 2 MG/ML 2 ML VIAL IV PRN (20:20)
[2022-10-07] MEDS: LORazepam 1 MG in SYRINGE 0 ML IV PRN ×4 (00:01→22:04)
[2022-10-07 08:33] LABS: BUN Creatinine Ratio 15.1 (10-20); Calcium 9.2 mg/dl (8.5-10.1); Creatinine Clr Calc Pharmacy 160.9 ml/min; Est GFR (African American) 143.3 ml/min; Est GFR (Non-African American) 123.6 ml/min; Magnesium 2.2 mg/dl (1.7-2.4)
[2022-10-07] MEDS: ENOXAPARIN INJ 40 MG/0.4 ML SYR SQ SCH (08:44)
[2022-10-07] MEDS: NICOTINE 21 MG/24 HR TDSY TD SCH (08:44)
[2022-10-07] MEDS: PANTOprazole 40 MG TAB PO SCH (08:45)
[2022-10-07] MEDS: THIAMINE HCL 100 MG TAB PO SCH (08:45)
[2022-10-07] MEDS: GABAPENTIN 600 MG TAB PO SCH ×2 (10:37→21:26)
[2022-10-07] MEDS: ONDANSETRON INJ 2 MG/ML 2 ML VIAL IV PRN (10:44)
--- NOTE | 2022-10-07 14:39 | Hospitalist Progress Note ---
Date of Service October 07, 2022 Assessment & Plan (1) Alcohol abuse with withdrawal: Plan: Patient is once again with alcohol withdrawal. Patient had a blood alcohol of 300 presentation. He states his last drink was around 11 PM on 10/04/2022. - Continue gabapentin - Continue AWSS Ativan protocol; adjust to [facility] for rehab. - Continue p.o. thiamine - Suicide precautions and a one-to-one for now -> Will be medically cleared on Sunday morning (10/08) if no further withdrawals. No major issues during this admission. (2) Suicidal ideations: Plan: Patient is once again suicidal. - Appreciate psychiatry help; plan for dual diagnosis placement when withdrawal has passed. (3) Tobacco abuse: Plan: - Nicotine patch (4) Depression, unspecified: Plan: In the past has been concern of using SSRI with his continued alcohol use. - Defer to psychiatry. Plan Patient continues on PPI and he will be on enoxaparin for DVT prevention Admission and Anticipated Discharge Date Admission Date: October 05, 2022 Subjective Doing well today. No major issues. Would still like to go to rehab. Physical Exam Constitutional: WD/WN, vitals as above Eyes: EOM intact bilaterally; no conjunctival abnormality ENMT: external ear and nose normal, oropharynx normal Mouth: + tongue abnormality (Tongue fasciculations) Neck: trachea midline, no thyromegaly normal visual inspection Respiratory: normal respiratory effort, lungs clear to auscultation no respiratory distress Cardiovascular: RRR, no murmur, no edema Gastrointestinal (Abdomen): Inspection/Auscultation: abdomen normal to i nspection; abdomen not distended Musculoskeletal: no cyanosis or clubbing, extremities motor strength 5/5 Skin: no rashes, warm and dry Neurologic: moves all extremities and awake Very mild tremor Psychiatric: Orientation: alert, oriented to person and cooperative Results & Data Results & Data ([facility]) Vital Signs (Past 12 Hours) Vital Signs Temp Pulse Pulse Resp BP Pulse Ox O2 Del Method 10/07/22 11:27 64 10/07/22 11:25 36.4 C L 87 17 137/87 97 Room Air 10/07/22 06:38 37.0 C 72 22 124/89 99 Room Air 10/07/22 04:12 36.8 C 78 21 146/96 H 98 Room Air PG Care Time/CCT Total # of Minutes Spent Total Time Spent with Patient: Total time spent is greater than 50% in coordination of care (as documented) at patient's floor/unit and/or counseling patient: Coding Level of Care Code 02600 Subseq Hosp Care Lvl 2 Diagnoses Alcohol abuse with withdrawal F10.139 Suicidal ideations R45.851 Tobacco abuse Z72.0 Depression, unspecified F33.1 Active/Remission status: currently active Depression Type: major depressive disorder Major depression episode severity: moderate Major depression recurrence: recurrent (1) Depression, unspecified Active/Remission status: currently active Depression Type: major depressive disorder Major depression episode severity: moderate Major depression recurrence: recurrent Qualified Code(s): F33.1 - Major depressive disorder, recurrent, moderate
[2022-10-07 14:42] LABS: 7-Aminoclonaz, Confirm NEGATIVE ng/mL (<25); Hydro-Alp Ur, GC/MS NEGATIVE ng/mL (<25); Hydroxyethylflurazepam, Conf NEGATIVE ng/mL (<50); Hydroxymidazolam Ur, GC/MS NEGATIVE ng/mL (<50); Hydroxytriazolam NEGATIVE ng/mL (<50); Lorazepam, Ur GC/MS NEGATIVE ng/mL (<50); Nordiazepam, Confirm NEGATIVE ng/mL (<50); Oxazepam Ur, GC/MS NEGATIVE ng/mL (<50); Temazepam, Confirm NEGATIVE ng/mL (<50)
[2022-10-08 06:43] LABS: BUN Creatinine Ratio 12.7 (10-20); Creatinine Clr Calc Pharmacy 148.7 ml/min; Est GFR (African American) 138.7 ml/min; Est GFR (Non-African American) 119.7 ml/min; Magnesium 2.3 mg/dl (1.7-2.4); Potassium 3.9 mmol/L (3.5-5.1)
--- NOTE | 2022-10-08 07:39 | Communication Note ---
Date of Service: October 08, 2022 Patient is off Ativan and his last dose of gabapentin is this morning. He has not had any significant withdrawal symptoms in 24 hours. He is medically cleared for discharge to a psychiatric facility.
[2022-10-08] MEDS: NICOTINE 21 MG/24 HR TDSY TD SCH (08:24)
[2022-10-08] MEDS: THIAMINE HCL 100 MG TAB PO SCH (08:25)
[2022-10-08] MEDS: PANTOprazole 40 MG TAB PO SCH (08:25)
[2022-10-08] MEDS: ENOXAPARIN INJ 40 MG/0.4 ML SYR SQ SCH (08:26)
[2022-10-08] MEDS ORDERED: hydrOXYzine HCl 25 MG TAB PO PRN (12:06)
--- NOTE | 2022-10-08 12:13 | Hospitalist Progress Note ---
Date of Service October 08, 2022 Assessment & Plan (1) Alcohol abuse with withdrawal: Plan: Patient is once again with alcohol withdrawal. Patient had a blood alcohol of 300 presentation. He states his last drink was around 11 PM on 10/04/2022. - Continue gabapentin - Finished AWSS Ativan protocol on 10/08 -> Had no signs of withdrawal and only needed Ativan once overnight. - Continue thiamine - Suicide precautions and a one-to-one for now -> On 10/08, appears to be out of withdrawal window. His last dose of Ativan was last night, he slept all night, and in AM his AWSS score was 1. He is medically cleared for rehab admission. In afternoon, after Ativan has been discontinued, he reports he is withdrawing. I believe anxiety is playing larger role than withdrawal. Will trial Vistaril PO. (2) Suicidal ideations: Plan: Patient is once again suicidal. - Appreciate psychiatry help; plan for dual diagnosis placement tomorrow. (3) Tobacco abuse: Plan: - Nicotine patch (4) Depression, unspecified: Plan: In the past has been concern of using SSRI with his continued alcohol use. - Defer to psychiatry. Plan Patient continues on PPI and he will be on enoxaparin for DVT prevention Admission and Anticipated Discharge Date Admission Date: October 05, 2022 Subjective Seen in AM. Slept all night. Doing well. Excited to go to the rehab facility. Physical Exam Constitutional: WD/WN, vitals as above Eyes: EOM intact bilaterally; no conjunctival abnormality ENMT: external ear and nose normal, oropharynx normal Mouth: no tongue abnormality (No tongue fasciculations) Neck: trachea midline, no thyromegaly normal visual inspection Respiratory: normal respiratory effort, lungs clear to auscultation no respiratory distress Cardiovascular: RRR, no murmur, no edema Gastrointestinal (Abdomen): Inspection/Auscultation: abdomen normal to inspection; abdomen not distended Musculoskeletal: no cyanosis or clubbing, extremities motor strength 5/5 Skin: no rashes, warm and dry Neurologic: moves all extremities and awake Mild tremor Psychiatric: Orientation: alert, oriented to person and cooperative Results & Data Results & Data ([facility]) Vital Signs (Past 12 Hours) Vital Signs Temp Pulse Pulse Resp BP BP Pulse Ox 10/08/22 11:50 36.4 C L 123 H 18 136/83 97 10/08/22 08:00 53 L 10/08/22 08:00 10/08/22 07:30 36.4 C L 73 16 123/77 96 10/08/22 03:31 36.6 C 65 18 128/86 98 O2 Del Method 10/08/22 11:50 Room Air 10/08/22 08:00 10/08/22 08:00 Room Air 10/08/22 07:30 Room Air 10/08/22 03:31 Room Air PG Care Time/CCT Total # of Minutes Spent Total Time Spent with Patient: Total time spent is greater than 50% in coordination of care (as documented) at patient's floor/unit and/or counseling patient: Coding Level of Care Code 59552 Subseq Hosp Care Lvl 2 Diagnoses Alcohol abuse with withdrawal F10.139 Suicidal ideations R45.851 Tobacco abuse Z72.0 Depression, unspecified F33.1 Active/Remission status: currently active Depression Type: major depressive disorder Major depression episode severity: moderate Major depression recurrence: recurrent (1) Depression, unspecified Active/Remission status: currently active Depression Type: major depressive disorder Major depression episode severity: moderate Major depression recurrence: recurrent Qualified Code(s): F33.1 - Major depressive disorder, recurrent, moderate
[2022-10-08] MEDS ORDERED: LORazepam 0.5 MG TAB PO PRN (12:47)
[2022-10-08] MEDS ORDERED: GABAPENTIN 300 MG CAP PO PRN (13:06)
--- NOTE | 2022-10-08 15:57 | Communication Note ---
Date of Service: October 08, 2022 interim progress reviewed, brief updates with Dr. Moss as patient is now medically cleared. He was accepted to [place] dual dx unit for 10/09 and trans port to be arranged for AM. Patient continues to have some ambivalence but ultimately agreeable. Later asked for prn reportedly as Vistaril ineffective, likely seeking Ativan but avoiding in preparation for dual dx then rehab. He has had some benefit from Neurontin in the past and would recommend 300 mg po q8 prn.
[2022-10-08] MEDS ORDERED: GABAPENTIN 600 MG TAB PO SCH (22:00)
[2022-10-09] MEDS: PANTOprazole 40 MG TAB PO SCH (08:35)
[2022-10-09] MEDS: NICOTINE 21 MG/24 HR TDSY TD SCH (08:35)
[2022-10-09] MEDS: THIAMINE HCL 100 MG TAB PO SCH (08:35)
[2022-10-09] MEDS: ENOXAPARIN INJ 40 MG/0.4 ML SYR SQ SCH (08:35)
--- NOTE | 2022-10-09 09:43 | Discharge Summary ---
Date of Service date of admission - October 05, 2022 date of discharge - October 09, 2022 Admission HPI Per Admitting Provider 32-year-old male history of alcohol abuse and alcohol withdrawal has been admitted many times for the same. Patient was last discharged in our facility September 24, 2022. In August patient is similar episode of presentation when he was not deemed a threat to candidate for psychiatry he left AMA. In his hospital stay in September he also was deemed not to be suicidal once he sobered up and was discharged. This hospital stay the patient also presents with suicidal ideation with plan to treat himself to and not eat. Reporting to the ER doctor that he also thought about cutting himself. Patient states history drinking about 30 shots of vodka daily since his discharge. the patient was hallucinating but as the night went on he began having tremulousness and hallucinations patient has been on the outpatient Vivitrol shot. Patient has been seeing outpatient psychiatric providers. Is also involved in [place] for alcohol withdrawal. At his last discharge he was on a taper of both Librium and gabapentin set up for his Vivitrol shot Principal Diagnosis 1. alcohol abuse 2. depression with suicidal ideation Discharge Exam gen - no signs of withdrawal or DTs; awake, alert, NAD mouth - MMM heart - RRR, s1 s2, no murmur lungs - CTA b/l abd - soft NT ND BS+; no HSM ext - no edema, pulses 2+ b/l Discharge Data Allergies Allergy/AdvReac Type Severity Reaction Status Date / Time bupropion [From Wellbutrin] AdvReac Severe anxiety, Verified 09/25/22 11:17 confussion buspirone [From BuSpar] AdvReac Intermediate Shaking/john Verified 09/25/22 11:17 mor gluten AdvReac Unknown Unknown Verified 09/25/22 11:17 milk AdvReac Unknown Unknown Verified 09/25/22 11:17 antihistamines AdvReac Intermediate "Just Uncoded 09/25/22 11:17 Don't Feel Right When I Take Them" Consultations Psychiatry Hospital Course (1) Alcohol abuse with withdrawal: Presented with blood alcohol level of 300 at ER presentation. He stated his last etoh drink was around 11 PM on 10/04/2022. He was placed on gabapentin taper and alcohol withdrawal protocol. He only needed a minimal amount of ativan during his stay for etoh withdrawal symptoms. On day of discharge he had no obvious signs/symptoms of withdrawal or DTs. He is transferring to a dual-diagnosis alcohol/mental health rehab facility at time of discharge. (2) Suicidal ideations: He presented with such. Placed on 1:1 observation with a sitter. He was evaluated by psychiatry. A dual-diagnosis alcohol/mental health rehab facility was presented as an option for him, and he is transferring to such at time of discharge. Accepted at [place] rehab facility by Dr. Bradshaw. (3) Tobacco abuse: Continue Nicotine patch (4) Depression, unspecified: with suicidal ideation - as above Total Time Total Time Spent Total Time Spent (In Minutes): 20 Discharge Plan Discharge Items Patient Disposition: Drug & Alcohol Rehab Reason For Visit: SUICIDAL THOUGHTS,ALCOHOL WITHDRAWAL Discharge Diagnosis: Alcohol withdrawal Suicidal ideation Tobacco dependence Activity: Resume your previous activity Non-emergency contact: Primary Care Provider Call non-emergency contact if: your symptoms worsen Follow-up/Referrals: Bri Cervantes MD [Primary Care Provider] - (follow-up within 1 week after discharge from alcohol rehab ) Diet: Regular Addtl Attending Provider Instructions: Mr. Block, You were admitted to the hospital for alcohol detox and suicidal ideation. Luckily, your withdrawal was controlled with Ativan, and you are doing well. You are going to rehab, and I wish you the best. -Dr Boggs Pending Studies at Discharge: No Stand-Alone Forms: My [facility] Skilled Items Patient informed of condition?: Yes DNR: No Discharge Level of Care: Other Communicable Disease: No Discharge Prognosis: Stable Lines: None Urinary Catheter: No Medications and DC Order Prescriptions: New multivitamin Tablet 1 tab PO DAILY Qty: 30 1RF nicotine [Nicoderm CQ] 21 mg/24 hr patch 24 hour 1 patch transdermal DAILY Qty: 28 0RF Continued pantoprazole 40 mg Tablet,Delayed Release (Dr/Ec) 40 mg PO QAM Qty: 30 0RF cyanocobalamin (vitamin B-12) 500 mcg Tablet 1,000 mcg PO QAM Qty: 30 0RF folic acid 1 mg Tablet 1 mg PO QAM Qty: 30 0RF thiamine HCl (vitamin B1) 100 mg tablet 100 mg PO DAILY Qty: 30 0RF fexofenadine 180 mg tablet 180 mg PO QAM PRN (Reason: Other) Rx Instructions: Take as needed for seasonal allergies Changed gabapentin 300 mg Capsule 300 mg PO TID PRN (Reason: Anxiety) Qty: 6 0RF Discontinued clonidine HCl 0.1 mg tablet 0.1 mg PO 2XD chlordiazepoxide HCl 25 mg capsule See Rx Instructions .ROUTE .COMPLEX Qty: 6 0RF Rx Instructions: take 1 tablet by mouth every 8 hours for 1 day, then 1 tablet every 12 hours for 1 day, then 1 tablet in AM on day 3 to complete taper Discharge Orders: Discharge Order (Routine); Ordered 10/09/22 Ordered By: Carlos Boggs Admission Data Admit Date/Time: 10/05/22 05:32 Attending Provider: Carlos Boggs Admit Provider: Meet Baird Primary Care Provider: Bri Cervantes Other Providers: Meet Baird ; Vita Mackey ; Angie Carrillo Other Interventions: Discharge Summary Assessment (RN) Last Done: 10/09/22 10:07 Coding Level of Care Code D/C DAY MANAGEMENT <30 MINS Diagnoses Alcohol abuse with withdrawal F10.139 Suicidal ideations R45.851 Tobacco abuse Z72.0 Depression, unspecified F33.1 Active/Remission status: currently active Depression Type: major depressive disorder Major depression episode severity: moderate Major depression recurrence: recurrent
== END 2022-10-09 10:15 | disposition alcohol treatment (31) | DRG 885 ==
LOC: ED 23:47 → SUATTDRO 10-05 05:32 → 2S 10-05 05:32

== ENCOUNTER 2022-10-22 12:32 | Inpatient (IN) ==
--- NOTE | 2022-10-22 12:51 | Emergency Department Note ---
Impression & Plan Alcohol withdrawal, Alcohol use disorder, severe, dependence, Transaminitis, Acute dehydration ED Provider Note NAME: MARYSOL RUTLEDGE AGE: 32 SEX: M : 1990 ARRIVES VIA: Walk-In INFORMANT: Patient, ED PROVIDER(S): Rizwan Wyman MD CHIEF COMPLAINT: Tachycardia, abdominal pain, vomiting, alcohol use MEDICAL DECISION MAKING: Patient was seen due to concern for palpitations tachycardia and abdominal pain. The patient did have blood work completed along with EKG and CT of the abdomen pelvis. The patient was ordered IV fluids banana bag IV Valium and nausea medication. Patient does have a known history of alcohol abuse. Patient's blood work shows a white count of 11.8 with a normal H&H and platelet count. Kidney function is unremarkable. The patient's LFTs are elevated bilirubin 1.1 AST of 1991 ALT. The patient's elevations are likely secondary to patient's chronic alcohol use. Alcohol alcohol at 150. Patient did receive Valium. The patient did receive an additional 2 doses of 10 mg of Valium in between separate reassessments as the patient was still tachycardic and there was concern for withdrawal. Given the patient's persistent tachycardia and history of known alcohol abuse I did speak with the on-call medicine service Amadou Solo PA-C the patient was admitted by the hospitalist service. CT did not show any evidence of bowel obstruction no hydro and normal appendix. Patient does have fatty liver noted. Critical Care: I have personally spent 75 minutes of critical care time in direct management of this patient. This includes bedside care, interpretation of diagnostic studies, and testing, discussion with consultants, patient, and family members, and other require inpatient management activities. This 75 minutes is in excess of all separately billable procedures. Differential diagnosis: Infection, dehydration, metabolic abnormality, hypo/hyperglycemia, electrolyte disturbance, anemia, hypoxia, cardiac sources, intracerebral event, toxicologic, neurologic, as well as other pathologies. Diagnostics, as interpreted by me: ECG: Sinus tachycardia, rate of 121 normal intervals normal axis no ST elevations. Cardiac monitoring: An order was placed for continuous cardiac monitoring. The monitor shows a rate of 144 with tachycardic and regular rhythm. Patient was placed on pulse oximetry Medical decision rules: None Imaging studies: See below HPI: Patient presents stating that he develops palpitations beginning around 3 AM this morning and has been persistent. The patient states that he also has associated abdominal pain that is epigastric right upper and right lower. Patient denies any recent surgeries or procedures. Patient does have a significant history of alcohol abuse and addiction. The patient states that he was at a dual treatment facility [facility] and upon discharge he relapsed. Patient states that he did not have any alcohol yesterday but did have 4 drinks of vodka this morning. The patient admits to eating 8 drinks 2 days ago. Patient denies any tobacco or drug use. Patient has had associated vomiting no blood in the vomit. Patient has not taken anything for symptoms at home. Patient denies any chest pains or shortness of breath. No leg pain or calf pain. No history of DVT or PE. No recent falls or trauma. Patient denies any issues with mental wellness today and denies SI HI or AVH. PAST MEDICAL HISTORY: See Below PAST SURGICAL HISTORY: See Below SOCIAL HISTORY: See Below HOME MEDICATIONS: See Below ALLERGIES: See Below VITALS: See Below PHYSICAL EXAMINATION: GENERAL: NAD, wearing a mask, non-toxic. EYE EXAM: Normal conjunctiva. PERRL, no anisocoria and EOM's grossly intact w/o pain. NECK: Supple, no nuchal rigidity, no adenopathy, non-tender. No signs of meningismus. FROM of the neck with good chin to chest and neck extension. No stridor. LUNGS: Clear to auscultation. Normal chest wall mechanics. HEART: Tachycardic and regular, no MRG. ABDOMEN: Abdomen soft, mild right-sided and epigastric pain, no left-sided or left lower quadrant pain, normo-active bowel sounds, no masses, no rebound or guarding. BACK: No CVA TTP. SKIN: No rashes and no bruising. UPPER EXTREMITIES: Upper extremities are grossly normal. LOWER EXTREMITIES: Grossly normal, no edema. NEURO EXAM: A&O x3, cranial nerves II-XII grossly intact, normal speech, moves all 4 extremities. 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 Alcoholic hepatitis Anxiety and depression Anxiety disorder, unspecified Chest pain Depression with suicidal ideation Depressive disorder Diplopia Dizziness Elevated liver enzymes BRITTNY (generalized anxiety disorder) BRITTNY (generalized anxiety disorder) Headache Homicidal ideation Hypokalemia Lab test negative for COVID-19 virus Left leg cellulitis No pertinent family history Pain, dental Post traumatic stress disorder (PTSD) Post traumatic stress disorder (PTSD) Self-harming behavior Suicidal behavior Suicidal ideation Suicidal ideations Tobacco abuse Surgical History No pertinent past surgical history Family History Other No significant family history Social History Smoking Status: Current every day smoker Tobacco Type: Cigarettes Cigarettes Per Day: 1 PPD; Second Hand Exposure: No; Hx Alcohol Use: Yes Alcohol type: hard liquor Hx Substance Use: No Preferred Language: Pashto Communication Ability: Effective Visual Impairment: No Limitations Hearing Ability: Normal Classifier Tender Required: No Beliefs That Will Affect Care: None marital status: Current Living Situation: Family Current Living Situation Comment: Living with brother current occupational status: employed How many Children do You have: 1 Feels Safe at Home: Yes Childhood Exposure to Second-Hand Smoke: No Dental Care, Regularly: Yes Physical Activity Frequency: Daily Seatbelt Use: always Sunscreen Use: No Assistive Devices: None Allergies Allergies Allergy/AdvReac Type Severity Reaction Status Date / Time bupropion [From Wellbutrin] AdvReac Severe anxiety, Verified 10/22/22 16:12 confussion buspirone [From BuSpar] AdvReac Intermediate Shaking/john Verified 10/22/22 16:12 mor gluten AdvReac Intermediate Gastrointestinal Verified 10/22/22 16:12 Upset milk AdvReac Intermediate Gastrointestinal Verified 10/22/22 16:12 Upset antihistamines AdvReac Intermediate "Just Uncoded 10/22/22 16:12 Don't Feel Right When I Take Them" Home Meds Home Medications Medication Instructions Recorded Confirmed fexofenadine 180 mg tablet 180 mg PO QAM PRN Other 07/27/22 10/22/22 Previous Rx's Medication Instructions Recorded cyanocobalamin (vitamin B-12) 500 1,000 mcg PO QAM #30 tabs 09/24/22 mcg tablet folic acid 1 mg tablet 1 mg PO QAM #30 tabs 09/24/22 pantoprazole 40 mg tablet,delayed 40 mg PO QAM #30 tabs 09/24/22 release thiamine HCl (vitamin B1) 100 mg 100 mg PO DAILY #30 tabs 09/24/22 tablet gabapentin 300 mg capsule 300 mg PO TID PRN Anxiety #6 caps 10/08/22 multivitamin 1 tab PO DAILY #30 tabs 10/09/22 Results & Data (ED) Vital Signs Vital Signs - 24 hr 10/22/22 12:45 10/22/22 13:12 10/22/22 13:02 Temperature 36.7 C Temperature Source Oral Pulse Rate 146 H Pulse Rate [Left Apical] 127 H Pulse Rate from SpO2 Sensor Pulse Rhythm [Left Apical] Regular Pulse Strength [Left Apical] Normal Respiratory Rate 18 22 Respiratory Effort / Characteristics Non-Labored Spontaneous Respiratory Depth Normal Blood Pressure 138/70 Blood Pressure [Right Arm] 116/61 Blood Pressure Mean 92 Blood Pressure Mean [Right Arm] 79 Pulse Oximetry 97 97 97 Oxygen Delivery Method Room Air Room Air Room Air Sepsis Recent Fever Within 48 Hours No Sepsis New/Unexplained Change in Mental Status N/A Sepsis Action Taken by Nursing No Action Required 10/22/22 14:12 10/22/22 15:21 10/22/22 15:54 Temperature Temperature Source Pulse Rate Pulse Rate [Left Apical] 112 H 114 H 116 H Pulse Rate from SpO2 Sensor Pulse Rhythm [Left Apical] Regular Regular Pulse Strength [Left Apical] Normal Normal Respiratory Rate 20 20 16 Respiratory Effort / Characteristics Non-Labored Spontaneous Non-Labored Spontaneous Respiratory Depth Normal Normal Blood Pressure Blood Pressure [Right Arm] 125/66 Blood Pressure Mean Blood Pressure Mean [Right Arm] 85 Pulse Oximetry 99 99 98 Oxygen Delivery Method Room Air Room Air Sepsis Recent Fever Within 48 Hours Sepsis New/Unexplained Change in Mental Status Sepsis Action Taken by Nursing 10/22/22 16:28 10/22/22 13:04 10/22/22 13:06 Temperature Temperature Source Pulse Rate 129 H Pulse Rate [Left Apical] 114 H Pulse Rate from SpO2 Sensor 127 H Pulse Rhythm [Left Apical] Regular Pulse Strength [Left Apical] Normal Respiratory Rate 20 20 Respiratory Effort / Characteristics Non-Labored Spontaneous Respiratory Depth Normal Blood Pressure 116/61 Blood Pressure [Right Arm] 103/57 L Blood Pressure Mean 79 Blood Pressure Mean [Right Arm] 72 Pulse Oximetry 98 98 Oxygen Delivery Method Room Air Sepsis Recent Fever Within 48 Hours Sepsis New/Unexplained Change in Mental Status Sepsis Action Taken by Nursing 10/22/22 13:06 10/22/22 13:30 10/22/22 14:00 Temperature Temperature Source Pulse Rate 122 H 115 H Pulse Rate [Left Apical] Pulse Rate from SpO2 Sensor 122 H 115 H 116 H Pulse Rhythm [Left Apical] Pulse Strength [Left Apical] Respiratory Rate 11 L 21 Respiratory Effort / Characteristics Respiratory Depth Blood Pressure Blood Pressure [Right Arm] Blood Pressure Mean Blood Pressure Mean [Right Arm] Pulse Oximetry 97 99 99 Oxygen Delivery Method Sepsis Recent Fever Within 48 Hours Sepsis New/Unexplained Change in Mental Status Sepsis Action Taken by Nursing 10/22/22 14:30 10/22/22 15:10 10/22/22 15:30 Temperature Temperature Source Pulse Rate 111 H 127 H Pulse Rate [Left Apical] Pulse Rate from SpO2 Sensor 110 H 111 H 127 H Pulse Rhythm [Left Apical] Pulse Strength [Left Apical] Respiratory Rate 22 20 Respiratory Effort / Characteristics Respiratory Depth Blood Pressure Blood Pressure [Right Arm] Blood Pressure Mean Blood Pressure Mean [Right Arm] Pulse Oximetry 98 97 97 Oxygen Delivery Method Sepsis Recent Fever Within 48 Hours Sepsis New/Unexplained Change in Mental Status Sepsis Action Taken by Nursing 10/22/22 15:54 10/22/22 15:54 10/22/22 16:00 Temperature Temperature Source Pulse Rate 119 H 115 H Pulse Rate [Left Apical] Pulse Rate from SpO2 Sensor 121 H 114 H Pulse Rhythm [Left Apical] Pulse Strength [Left Apical] Respiratory Rate 11 L 25 H Respiratory Effort / Characteristics Respiratory Depth Blood Pressure 125/66 Blood Pressure [Right Arm] Blood Pressure Mean 85 Blood Pressure Mean [Right Arm] Pulse Oximetry 97 95 Oxygen Delivery Method Sepsis Recent Fever Within 48 Hours Sepsis New/Unexplained Change in Mental Status Sepsis Action Taken by Nursing 10/22/22 16:01 10/22/22 16:01 10/22/22 16:03 Temperature Temperature Source Pulse Rate 114 H 120 H Pulse Rate [Left Apical] Pulse Rate from SpO2 Sensor 112 H 119 H Pulse Rhythm [Left Apical] Pulse Strength [Left Apical] Respiratory Rate 25 H 22 Respiratory Effort / Characteristics Respiratory Depth Blood Pressure 48/25 L Blood Pressure [Right Arm] Blood Pressure Mean 32 Blood Pressure Mean [Right Arm] Pulse Oximetry 95 97 Oxygen Delivery Method Sepsis Recent Fever Within 48 Hours Sepsis New/Unexplained Change in Mental Status Sepsis Action Taken by Nursing 10/22/22 16:03 10/22/22 16:30 10/22/22 17:00 Temperature Temperature Source Pulse Rate 113 H Pulse Rate [Left Apical] Pulse Rate from SpO2 Sensor Pulse Rhythm [Left Apical] Pulse Strength [Left Apical] Respiratory Rate 22 Respiratory Effort / Characteristics Respiratory Depth Blood Pressure 103/57 L 105/70 Blood Pressure [Right Arm] Blood Pressure Mean 72 81 Blood Pressure Mean [Right Arm] Pulse Oximetry Oxygen Delivery Method Sepsis Recent Fever Within 48 Hours Sepsis New/Unexplained Change in Mental Status Sepsis Action Taken by Nursing 10/22/22 17:00 10/22/22 17:30 10/22/22 18:00 Temperature Temperature Source Pulse Rate 105 H 112 H Pulse Rate [Left Apical] 118 H Pulse Rate from SpO2 Sensor 105 H 111 H Pulse Rhythm [Left Apical] Regular Pulse Strength [Left Apical] Normal Respiratory Rate 24 17 20 Respiratory Effort / Characteristics Non-Labored Spontaneous Respiratory Depth Normal Blood Pressure Blood Pressure [Right Arm] 136/85 Blood Pressure Mean Blood Pressure Mean [Right Arm] 102 Pulse Oximetry 97 97 96 Oxygen Delivery Method Room Air Sepsis Recent Fever Within 48 Hours Sepsis New/Unexplained Change in Mental Status Sepsis Action Taken by Nursing 10/22/22 18:32 Temperature Temperature Source Pulse Rate Pulse Rate [Left Apical] 117 H Pulse Rate from SpO2 Sensor Pulse Rhythm [Left Apical] Pulse Strength [Left Apical] Respiratory Rate 20 Respiratory Effort / Characteristics Respiratory Depth Blood Pressure Blood Pressure [Right Arm] 136/85 Blood Pressure Mean Blood Pressure Mean [Right Arm] 102 Pulse Oximetry 99 Oxygen Delivery Method Room Air Sepsis Recent Fever Within 48 Hours Sepsis New/Unexplained Change in Mental Status Sepsis Action Taken by Shelter Medications Current Medication List: was personally reviewed by me Laboratory Data Attestation: I reviewed the patient's lab results. Result diagrams: 10/22/22 13:05 10/22/22 13:05 Lab Results 10/22/22 10/22/22 10/22/22 Range/Units 13:05 13:05 13:05 WBC 11.88 H (4.8-10.8) K/ul RBC 4.79 (4.63-6.08) M/uL Hgb 16.0 (14.0-18.0) g/dl Hct 44.6 (40.1-51.0) % MCV 93.1 (80.0-100.0) fL MCH 33.4 (25.0-34.0) pg MCHC 35.9 (32.0-36.0) g/dL RDW Std Deviation 42.5 (36.4-46.3) fL RDW Coeff of Bryanna 12.2 (11.5-14.5) % Plt Count 269 (130-400) K/uL MPV 9.9 (9.4-12.4) fL Immature Gran % (Auto) 0.5 % Neut % (Auto) 83.7 % Lymph % (Auto) 6.4 % [place] % (Auto) 8.2 % Eos % (Auto) 0.4 % Baso % (Auto) 0.8 % Neut # (Auto) 9.94 H (1.4-6.5) K/uL Lymph # (Auto) 0.76 L (1.2-3.4) K/uL [place] # (Auto) 0.97 H (0.24-0.82) K/uL Eos # (Auto) 0.05 (0-0.50) K/uL Baso # (Auto) 0.10 (0-0.2) K/uL Immature Gran # (Auto) 0.06 H (0.00-0.02) K/uL Sodium 135 L (136-145) mmol/L Potassium 3.6 (3.5-5.1) mmol/L Chloride 98 (98-107) mmol/L Carbon Dioxide 14 L (21-32) mmol/L Anion Gap 23 H (3-11) BUN 13 (6-23) mg/dl Creatinine 0.92 (0.6-1.4) mg/dl Est Cr Clr Drug Dosing 123.9 ml/min Est GFR ( Amer) 128.0 ml/min Est GFR (Non-Af Amer) 110.4 ml/min BUN/Creatinine Ratio 14.1 (10-20) Glucose 70 (70-99(Fasting)) mg/dl Calcium 9.0 (8.5-10.1) mg/dl Phosphorus 3.6 (2.5-4.9) mg/dl Magnesium 1.8 (1.7-2.4) mg/dl Total Bilirubin 1.1 H (0.2-1.0) mg/dl AST 208 H (13-39) U/L ALT 92 H (7-52) U/L Alkaline Phosphatase 53 (34-104) U/L Troponin I High Sens 6.2 (0-20) pg/ml Total Protein 7.4 (6.0-8.3) gm/dl Albumin 4.3 (3.4-5.0) gm/dl Globulin 3.1 (2.5-4.0) gm/dl Albumin/Globulin Ratio 1.4 (0.9-2) Lipase 34 (11-82) U/L TSH (0.300-4.500) uIu/ml Ethyl Alcohol mg/dL 150.8 H (<10.0) mg/dl 10/22/22 Range/Units 13:05 WBC (4.8-10.8) K/ul RBC (4.63-6.08) M/uL Hgb (14.0-18.0) g/dl Hct (40.1-51.0) % MCV (80.0-100.0) fL MCH (25.0-34.0) pg MCHC (32.0-36.0) g/dL RDW Std Deviation (36.4-46.3) fL RDW Coeff of Bryanna (11.5-14.5) % Plt Count (130-400) K/uL MPV (9.4-12.4) fL Immature Gran % (Auto) % Neut % (Auto) % Lymph % (Auto) % [place] % (Auto) % Eos % (Auto) % Baso % (Auto) % Neut # (Auto) (1.4-6.5) K/uL Lymph # (Auto) (1.2-3.4) K/uL [place] # (Auto) (0.24-0.82) K/uL Eos # (Auto) (0-0.50) K/uL Baso # (Auto) (0-0.2) K/uL Immature Gran # (Auto) (0.00-0.02) K/uL Sodium (136-145) mmol/L Potassium (3.5-5.1) mmol/L Chloride (98-107) mmol/L Carbon Dioxide (21-32) mmol/L Anion Gap (3-11) BUN (6-23) mg/dl Creatinine (0.6-1.4) mg/dl Est Cr Clr Drug Dosing ml/min Est GFR ( Amer) ml/min Est GFR (Non-Af Amer) ml/min BUN/Creatinine Ratio (10-20) Glucose (70-99(Fasting)) mg/dl Calcium (8.5-10.1) mg/dl Phosphorus (2.5-4.9) mg/dl Magnesium (1.7-2.4) mg/dl Total Bilirubin (0.2-1.0) mg/dl AST (13-39) U/L ALT (7-52) U/L Alkaline Phosphatase (34-104) U/L Troponin I High Sens (0-20) pg/ml Total Protein (6.0-8.3) gm/dl Albumin (3.4-5.0) gm/dl Globulin (2.5-4.0) gm/dl Albumin/Globulin Ratio (0.9-2) Lipase (11-82) U/L TSH 0.743 (0.300-4.500) uIu/ml Ethyl Alcohol mg/dL (<10.0) mg/dl Administered Medications Acetaminophen (Acetaminophen 325 Mg Tab) 650 mg PO Q4H PRN PRN Reason: Pain (1,2,3) Or Fever Stop: 11/21/22 18:00 Last Admin: 10/22/22 18:30 Dose: 650 mg Documented By: TW Chlordiazepoxide HCl (Chlordiazepoxide Hcl 25 Mg Cap) 50 mg PO Q6H XIOMY; Taper Stop: 10/25/22 17:59 Last Admin: 10/22/22 18:30 Dose: 50 mg Documented By: IVANNA Magnesium Sulfate/Dextrose (Magnesium Sulfate / D5w) 1 gm in 100 mls @ 50 mls/hr IV ONE ONE Stop: 10/22/22 20:59 Last Admin: 10/22/22 19:13 Dose: 50 mls/hr Documented By: LENNIE Nicotine (Nicotine 14 Mg/24 Hr Patch) 14 mg TD QAM [facility] Stop: 11/21/22 18:44 Last Admin: 10/22/22 19:13 Dose: 14 mg Documented By: Discontinued Medications Chlordiazepoxide HCl (Chlordiazepoxide Hcl 25 Mg Cap) 50 mg PO NOW ONE Stop: 10/22/22 13:03 Last Admin: 10/22/22 13:09 Dose: 50 mg Documented By: IVANNA Diazepam (Diazepam 5 Mg/Ml Inj 10ml Vial) 5 mg IV NOW STA Stop: 10/22/22 13:03 Last Admin: 10/22/22 13:09 Dose: 5 mg Documented By: TW Diazepam (Diazepam 5 Mg/Ml Inj 10ml Vial) 10 mg IV NOW STA Stop: 10/22/22 15:39 Last Admin: 10/22/22 15:52 Dose: 10 mg Documented By: TW Diazepam (Diazepam 5 Mg/Ml Inj 10ml Vial) 10 mg IV NOW STA Stop: 10/22/22 17:32 Last Admin: 10/22/22 17:52 Dose: 10 mg Documented By: AYAH Sodium Chloride (Nss 1000ml) 1,000 mls @ 999 mls/hr IV .Q1H1M STA Stop: 10/22/22 14:02 Last Infusion: 10/22/22 14:19 Dose: 0 mls/hr Documented By: Admin: 10/22/22 13:09 Dose: 999 mls/hr Documented By: IVANNA Multivitamins 10 ml/ Thiamine HCl 100 mg/ Folic Acid 1 mg/Sodium Chloride 1,011.2 mls @ 500 mls/hr IV .Q2H2M ONE Stop: 10/22/22 15:03 Last Infusion: 10/22/22 16:29 Dose: 0 mls/hr Documented By: Admin: 10/22/22 14:11 Dose: 500 mls/hr Documented By: IVANNA Sodium Chloride (Nss 1000ml) 1,000 mls @ 999 mls/hr IV .Q1H1M ONE Stop: 10/22/22 18:32 Last Admin: 10/22/22 18:29 Dose: 999 mls/hr Documented By: IVANNA Ioversol (Optiray 350 100ml) 90 ml IV ONCE ONE Stop: 10/22/22 14:54 Last Admin: 10/22/22 14:54 Dose: 90 ml Documented By: [facility] Ondansetron HCl (Ondansetron Inj 2 Mg/Ml 2 Ml Vial) Confirm Administered Dose 4 mg .ROUTE .STK-MED ONE Stop: 10/22/22 18:27 Last Admin: 10/22/22 18:30 Dose: 4 mg Documented By: IVANNA Imaging Data Radiologist's Impression: Abdomen/Pelvis CT 10/22/22 13:[address] WITH IV CONTRAST CT DOSE: 299.98 mGy.cm HISTORY: Right-sided abdominal pain. TECHNIQUE: Multiaxial CT images of the abdomen and pelvis were performed following the use of intravenous contrast. A dose lowering technique was utilized adhering to the principles of ALARA. COMPARISON STUDY: Abdomen and pelvis CT 01/30/2022. FINDINGS: The lung bases are clear. No pneumoperitoneum. No pneumatosis. Bilateral L5 spondylolysis. Hepatic steatosis again noted. The gallbladder, pancreas, spleen, adrenal glands, and kidneys are unremarkable. No hydronephrosis. The main portal vein is patent. No retroperitoneal lymphadenopathy. Normal caliber abdominal aorta. Normal bladder. No pelvic free fluid. No bowel wall thickening or obstruction. Normal appendix. IMPRESSION: 1. No bowel wall thickening or obstruction. 2. Normal appendix. 3. No hydronephrosis. 4. Hepatic steatosis again noted. ACT 112: Negative or not required by law. Electronically signed by: Martinez Quarles M.D. 10/22/2022 3:07 PM Discharge Plan Visit Data Chief Complaint: Abdominal Pain Stated Complaint: FAST HEART RATE, CHEST PAIN, RIGHT ABDOMINAL PAIN ED Provider: Rizwan Wyman Discharge Problem: Alcohol withdrawal, Alcohol use disorder, severe, dependence, Transaminitis, Acute dehydration Patient Disposition: Admitted As Inpatient Forms Stand Alone Forms: [facility] Prescriptions Prescriptions: No Action pantoprazole 40 mg Tablet,Delayed Release (Dr/Ec) 40 mg PO QAM Qty: 30 0RF cyanocobalamin (vitamin B-12) 500 mcg Tablet 1,000 mcg PO QAM Qty: 30 0RF folic acid 1 mg Tablet 1 mg PO QAM Qty: 30 0RF thiamine HCl (vitamin B1) 100 mg tablet 100 mg PO DAILY Qty: 30 0RF fexofenadine 180 mg tablet 180 mg PO QAM PRN (Reason: Other) Rx Instructions: Take as needed for seasonal allergies gabapentin 300 mg Capsule 300 mg PO TID PRN (Reason: Anxiety) Qty: 6 0RF multivitamin Tablet 1 tab PO DAILY Qty: 30 1RF Referrals Referrals: Bri Cervantes MD [Primary Care Provider] -
[2022-10-22] MEDS ORDERED: LORazepam 2 MG/1 ML VIAL IV PRN (13:02)
[2022-10-22] MEDS ORDERED: MULTI-VITAMIN INFUSION 10 ML, THIAMINE HCL 100 MG, FOLIC ACID 1 MG in SODIUM CHLORIDE 0... IV ONE (13:02)
[2022-10-22] MEDS ORDERED: SODIUM CHLORIDE 0.9% 1000ML 1,000 ML IV STA (13:02)
[2022-10-22] MEDS ORDERED: chlordiazePOXIDE HCl 25 MG CAP PO ONE (13:02)
[2022-10-22] MEDS ORDERED: Ativan IV Alcohol Withdrawal--Active Protocol IV PRN (13:02)
[2022-10-22 13:20] LABS: Basophils % (auto) 0.8 %; Eosinophils # (auto) 0.05 K/uL (0-0.50); Eosinophils % (auto) 0.4 %; Hematocrit (blood only) 44.6 % (40.1-51.0); Immature Granulocytes # (auto) 0.06 K/uL (0.00-0.02); Immature Granulocytes % (auto) 0.5 %; Lymphocytes # (auto) 0.76 K/uL (1.2-3.4); Lymphocytes % (auto) 6.4 %; Mean Corpuscular Hemoglobin 33.4 pg (25.0-34.0); Mean Corpuscular Hgb Conc 35.9 g/dL (32.0-36.0); Mean Corpuscular Volume 93.1 fL (80.0-100.0); Mean Platelet Volume 9.9 fL (9.4-12.4); Monocytes # (auto) 0.97 K/uL (0.24-0.82); Monocytes % (auto) 8.2 %; Neutrophils # (auto) 9.94 K/uL (1.4-6.5); Neutrophils % (auto) 83.7 %; Platelet Count 269 K/uL (130-400); RDW Coefficient of Variation 12.2 % (11.5-14.5); RDW Standard Deviation 42.5 fL (36.4-46.3); Red Blood Count 4.79 M/uL (4.63-6.08); White Blood Count 11.88 K/ul (4.8-10.8)
[2022-10-22 13:48] LABS: Troponin I High Sensitivity 6.2 pg/ml (0-20)
[2022-10-22 13:57] LABS: Albumin Globulin Ratio 1.4 (0.9-2); Albumin Level 4.3 gm/dl (3.4-5.0); BUN Creatinine Ratio 14.1 (10-20); Bilirubin,Total 1.1 mg/dl (0.2-1.0); Creatinine Clr Calc Pharmacy 123.9 ml/min; Est GFR (Non-African American) 110.4 ml/min; Globulin 3.1 gm/dl (2.5-4.0); Magnesium 1.8 mg/dl (1.7-2.4); Phosphorus 3.6 mg/dl (2.5-4.9); Potassium 3.6 mmol/L (3.5-5.1); Total Protein 7.4 gm/dl (6.0-8.3)
[2022-10-22] MEDS ORDERED: OPTIRAY 350 100ml IV ONE (14:53)
--- NOTE | 2022-10-22 15:10 | CT Scan Report ---
ABDOMEN AND PELVIS CT WITH IV CONTRAST CT DOSE: 299.98 mGy.cm HISTORY: Right-sided abdominal pain. TECHNIQUE: Multiaxial CT images of the abdomen and pelvis were performed following the use of intrave nous contrast. A dose lowering technique was utilized adhering to the principles of ALARA. COMPARISON STUDY: Abdomen and pelvis CT 01/30/2022. FINDINGS: The lung bases are clear. No pneumoperitoneum. No pneumatosis. Bilateral L5 spondylolysis. Hepatic steatosis again noted. The gallbladder, pancreas, spleen, adrenal glands, and kidneys are unr emarkable. No hydronephrosis. The main portal vein is patent. No retroperitoneal lymphadenopathy. Nor mal caliber abdominal aorta. Normal bladder. No pelvic free fluid. No bowel wall thickening or obstru ction. Normal appendix. IMPRESSION: 1. No bowel wall thickening or obstruction. 2. Normal appendix. 3. No hydronephrosis. 4. Hepatic steatosis again noted. ACT 112: Negative or not required by law. Electronically signed by: Martinez Quarles M.D. 10/22/2022 3:07 PM
[2022-10-22] MEDS ORDERED: SODIUM CHLORIDE 0.9% 1000ML 1,000 ML IV ONE (17:32)
--- NOTE | 2022-10-22 17:58 | History & Physical Report ---
Date of Service October 22, 2022 Assessment & Plan (1) Alcohol withdrawal: Plan: -Admit to med tele -Patient is currently afebrile, hemodynamically stable, stable on RA and tachycardic in the 110's -Patient has been drinking throughout the week but stopped yesterday, felt as though he was going into withdrawal so he had 4-5 vodka drinks this am -Patient is currently tremulous and tachycardic, no hallucinations or significant HTN -S/P 2L NSS bolus, 50 mg PO librium, 20 mg of IV Valium, and a banana bag -Will continue with light IV hydration with LR x 2 bags -Monitor on tele/pulse oximetry -AWSS protocol in place with scheduled Librium and prn ativan -Patient's abdominal pain is likely due to alcoholic gastritis, CT of the abd/pelvis was negative for acute findings -Will start QID carafate and continue his home protonix -Continue folic acid, thiamine, and B12 -Will order respiratory biofire on admission to rule out acute infection (2) High anion gap metabolic acidosis: Plan: -AG noted to be 23 with a bicarb of 14 -No lactate available, will obtain now -Likely due to dehydation and recurrent alcohol use -Will repeat a BMP and mag now to reevaluation after IV hydration -Continue to monitor on tele (3) Tobacco abuse: Plan: -Still smoking about 8 cigarretts daily -Will order nicotine patch (4) Acid reflux: Plan: -Continue Protonix -Starting Carafate Plan The patient was discussed with Dr. Baird at the time of the admission History of Present Illness Chief Complaint: Abd pain with heart palpitations Primary Care Provider: Bri Cervantes MD Chun is a 32 year old male with a PMH significant for alcohol abuse with ltiple recent admissions for alcohol withdrawal, depression with suicidal ideations, and anxiety who presented to the [facility] ED on 10/22/22 with a chief complaint of abdominal pain and palpitations. In the ED the patient was found to be afebrile, hemodynamically stable, stable on RA, but tachycardic in the 110s- 120s. Labs were remarkable for a WBC of 11.88, absolute neutrophils of 9.94, stable hgb and platelets, stable cr of 0.92 AG of 23, bicarb of 14, sodium of 135, total bili of 1.1, ATS of 208, ALT of 92, TSH of 0.743, and alcohol level of 150.8. CT of the abdomen/pelvis with IV contrast was read as "1. No bowel wall thickening or obstruction 2. Normal appendix. 3. No hydronephrosis. 4. Hepatic steatosis again noted.". The patient was initially given 1L NSS, a banana bag, 50mg PO Librium, 5 mg then 10 mg IV Valium, an was started CIWA.The ED staff spoke with the patient regarding staying for alcohol withdrawal or going home if her was going to continue drinking, he wishes to be admitted for alcohol withdrawal. Per chart review, the patient was last admitted to [facility] from 10/05/22- 10/09/22 for alcohol withdrawal and suicidal ideations . He required minimal treatment for his alcohol withdrawal. He was eventually discharged to [place] rehab facility. At the time of the exam the patient was sitting comfortably in bed in no acute distress. He states that for the past week he has experienced URI symptoms including fever, chills, nausea, non-bloody emesis, and poor oral intake. He states that he was discharged from [place] a little over a week ago and started drinking shortly after. He states that he did not enjoy his time there as it felt more like a [facility]ry [facility] with people court ordered to be there then a rehab facility where people are voluntarily trying to get sober. He states that he had 4-5 vodka drinks this am as he felt as though he was starting to withdrawal. He is currently experiencing tremors, tachycardia, and has a headache. He is not currently experiencing hallucinations and denies homicidal and suicidal ideations. He would be interested in trying to find another rehab facility. Please refer to Dr. Baird's attestation for any changes to the treatment plan. Allergies Allergy/AdvReac Type Severity Reaction Status Date / Time bupropion [From Wellbutrin] AdvReac Severe anxiety, Verified 10/22/22 16:12 confussion buspirone [From BuSpar] AdvReac Intermediate Shaking/john Verified 10/22/22 16:12 mor gluten AdvReac Intermediate Gastrointestinal Verified 10/22/22 16:12 Upset milk AdvReac Intermediate Gastrointestinal Verified 10/22/22 16:12 Upset antihistamines AdvReac Intermediate "Just Uncoded 10/22/22 16:12 Don't Feel Right When I Take Them" Home Medications Medication Instructions Recorded Confirmed Type fexofenadine 180 mg tablet 180 mg PO QAM PRN Other 07/27/22 10/22/22 History cyanocobalamin (vitamin B-12) 500 1,000 mcg PO QAM #30 tabs 09/24/22 10/22/22 Rx mcg tablet folic acid 1 mg tablet 1 mg PO QAM #30 tabs 09/24/22 10/22/22 Rx pantoprazole 40 mg tablet,delayed 40 mg PO QAM #30 tabs 09/24/22 10/22/22 Rx release thiamine HCl (vitamin B1) 100 mg 100 mg PO DAILY #30 tabs 09/24/22 10/22/22 Rx tablet gabapentin 300 mg capsule 300 mg PO TID PRN Anxiety #6 caps 10/08/22 10/22/22 Rx multivitamin 1 tab PO DAILY #30 tabs 10/09/22 10/22/22 Rx 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 Alcoholic hepatitis Anxiety and depression Anxiety disorder, unspecified Chest pain Depression with suicidal ideation Depressive disorder Diplopia Dizziness Elevated liver enzymes BRITTNY (generalized anxiety disorder) BRITTNY (generalized anxiety disorder) Headache Homicidal ideation Hypokalemia Lab test negative for COVID-19 virus Left leg cellulitis No pertinent family history Pain, dental Post traumatic stress disorder (PTSD) Post traumatic stress disorder (PTSD) Self-harming behavior Suicidal behavior Suicidal ideation Suicidal ideations Tobacco abuse Surgical History No pertinent past surgical history Family History Other No significant family history Social History Smoking Status: Current every day smoker Tobacco Type: Cigarettes Cigarettes Per Day: 1 PPD; Second Hand Exposure: No; Hx Alcohol Use: Yes Alcohol type: hard liquor Hx Substance Use: No Preferred Language: Fijian Communication Ability: Effective Visual Impairment: No Limitations Hearing Ability: Normal Motor Vehicle Light Assembler Required: No Beliefs That Will Affect Care: None marital status: Current Living Situation: Family Current Living Situation Comment: Living with brother current occupational status: employed How many Children do You have: 1 Feels Safe at Home: Yes Childhood Exposure to Second-Hand Smoke: No Dental Care, Regularly: Yes Physical Activity Frequency: Daily Seatbelt Use: always Sunscreen Use: No Assistive Devices: None Review of Systems Review of Systems: Denies current fever, chills, changes in vision, hearing, taste, and smell, chest pain, SOB, cough, diarrhea, hematemesis, melena, dysuria, hematuria, and recent falls. All systems have been reviewed and are otherwise negative. Physical Exam Physical Exam: Physical Exam: General: In no acute distress, stated age, poor hygiene HEENT: Normocephalic, atraumatic, no scleral icterus, pupils around round, symmetrical, and reactive to light, dry mucus membranes, trachea midline, no thyromegaly Chest/Pulm: No respiratory distress, symmetrical chest expansion, clear breath sounds throughout Cardiac: tachycardic rate, regular rhythm, no murmurs noted Abdomen: Negative for ascites and bruising, normoactive bowel sounds, soft, non-tender to palpation throughout Musculoskeletal: Symmetrical and without signs of acute trauma, upper and lower extremities with full ROM, no atrophy, spasticity, or flaccidity Extremities: Radial, dorsalis pedis, and posterior tibial pulses are intact and symmetrical, no edema noted in the BL LE's Skin: Warm, dry, no rashes , lesions, or scars noted Neuro: Alert and oriented to person, place, month, year, and president, no focal defects, CN II-XII tested and intact, finger to nose test negative, patient is currently with a mild tremor Psych: No acute distress, calm and cooperative during the exam Results & Data Results & Data ([facility]) Vital Signs (Past 12 Hours) Vital Signs Temp Pulse Pulse Resp BP BP Pulse Ox 10/22/22 17:30 112 H 17 97 10/22/22 17:00 105 H 24 97 10/22/22 17:00 105/70 10/22/22 16:30 113 H 22 10/22/22 16:03 103/57 L 10/22/22 16:03 120 H 22 97 10/22/22 16:01 48/25 L 10/22/22 16:01 114 H 25 H 95 10/22/22 16:00 115 H 25 H 95 10/22/22 15:54 125/66 10/22/22 15:54 119 H 11 L 97 10/22/22 15:30 127 H 20 97 10/22/22 15:10 97 10/22/22 14:30 111 H 22 98 10/22/22 14:00 99 10/22/22 13:30 115 H 21 99 10/22/22 13:06 122 H 11 L 97 10/22/22 13:06 116/61 10/22/22 13:04 129 H 20 98 10/22/22 16:28 114 H 20 103/57 L 98 10/22/22 15:54 116 H 16 125/66 98 10/22/22 15:21 114 H 20 99 10/22/22 14:12 112 H 20 99 10/22/22 13:02 97 10/22/22 13:12 127 H 22 116/61 97 10/22/22 12:45 36.7 C 146 H 18 138/70 97 O2 Del Method 10/22/22 17:30 10/22/22 17:00 10/22/22 17:00 10/22/22 16:30 10/22/22 16:03 10/22/22 16:03 10/22/22 16:01 10/22/22 16:01 10/22/22 16:00 10/22/22 15:54 10/22/22 15:54 10/22/22 15:30 10/22/22 15:10 10/22/22 14:30 10/22/22 14:00 10/22/22 13:30 10/22/22 13:06 10/22/22 13:06 10/22/22 13:04 10/22/22 16:28 Room Air 10/22/22 15:54 Room Air 10/22/22 15:21 Room Air 10/22/22 14:12 10/22/22 13:02 Room Air 10/22/22 13:12 Room Air 10/22/22 12:45 Room Air Laboratory Results Abnormal lab results 10/22/22 10/22/22 10/22/22 Range/Units 13:05 13:05 13:05 WBC 11.88 H (4.8-10.8) K/ul Neut # (Auto) 9.94 H (1.4-6.5) K/uL Lymph # (Auto) 0.76 L (1.2-3.4) K/uL Camp # (Auto) 0.97 H (0.24-0.82) K/uL Immature Gran # (Auto) 0.06 H (0.00-0.02) K/uL Sodium 135 L (136-145) mmol/L Carbon Dioxide 14 L (21-32) mmol/L Anion Gap 23 H (3-11) Total Bilirubin 1.1 H (0.2-1.0) mg/dl AST 208 H (13-39) U/L ALT 92 H (7-52) U/L Ethyl Alcohol mg/dL 150.8 H (<10.0) mg/dl Diagnostic Findings Abdomen/Pelvis CT 10/22/22 13:[address] WITH IV CONTRAST CT DOSE: 299.98 mGy.cm HISTORY: Right-sided abdominal pain. TECHNIQUE: Multiaxial CT images of the abdomen and pelvis were performed following the use of intravenous contrast. A dose lowering technique was utilized adhering to the principles of ALARA. COMPARISON STUDY: Abdomen and pelvis CT 01/30/2022. FINDINGS: The lung bases are clear. No pneumoperitoneum. No pneumatosis. Bilateral L5 spondylolysis. Hepatic steatosis again noted. The gallbladder, pancreas, spleen, adrenal glands, and kidneys are unremarkable. No hydronephrosis. The main portal vein is patent. No retroperitoneal lym phadenopathy. Normal caliber abdominal aorta. Normal bladder. No pelvic free fluid. No bowel wall thickening or obstruction. Normal appendix. IMPRESSION: 1. No bowel wall thickening or obstruction. 2. Normal appendix. 3. No hydronephrosis. 4. Hepatic steatosis again noted. ACT 112: Negative or not required by law. Electronically signed by: Martinez Quarles M.D. 10/22/2022 3:07 PM ECG Additional Comments: Sinus tachycardia Possible Left atrial enlargement Borderline ECG When compared with ECG of 13-SEP-2022 04:31, Vent. rate has increased BY 74 BPM Code Status & VTE Plan Code Status Full code VTE Prophylaxis Plan VTE Prophylaxis will be ordered: Yes Supervising Physician Co-Signing Physician Notes Patient was seen and examined independently I discussed the case with Amadou KUNZ I reviewed pertinent past medical social family history and also the plan of care and agree with the plan of care. Patient be presents after leaving drug and alcohol rehab as he felt it was more psychological rehab than a substance abuse rehab. He then began redrinking first buying 4 beers because liquor store was closed and then graduating towards vodka and water. Poorly has had some fevers chills at home some diarrhea not been around any other people that have been ill initial evaluation in the e mergency department shows him to have signs of alcohol withdrawal, serum alcohol level 150, and a metabolic anion gap acidosis CT scan abdomen pelvis not show any intra-abdominal pathology other than steatohepatitis for which has had in the past. He does not have alcoholic hepatitis at this time. Exam shows him to be tremulous and agitated at times his abdomen is NABS soft he has no tenderness over his right upper quadrant his cardiac exam is regular and lungs are clear Patient is admitted for acute alcohol withdrawal with case management interface for possible consideration of return to alcohol rehab. Given his anion gap acidosis we will check lactic acid bio fire if he has any recurrence of his diarrhea we will test that. Any exceptions will be noted below PG Care Time/CCT Total # of Minutes Spent Total Time Spent with Patient: Total time spent is greater than 50% in coordination of care (as documented) at patient's floor/unit and/or counseling patient: Coding [place] [address] Initial Inpt Care Lvl 3 Patient Type Established History Comprehensive Exam Comprehensive Medical Decision Making High Complexity Diagnoses Alcohol withdrawal F10.939 High anion gap metabolic acidosis E87.29 Tobacco abuse Z72.0 Acid reflux K21.9
[2022-10-22] MEDS ORDERED: chlordiazePOXIDE ALCOHOL WITHDRAWL 50MG PO STA (17:59)
[2022-10-22] MEDS ORDERED: ONDANSETRON INJ 2 MG/ML 2 ML VIAL ONE (18:26)
[2022-10-22] MEDS: chlordiazePOXIDE HCl 25 MG CAP PO SCH (18:30)
[2022-10-22] MEDS: ACETAMINOPHEN 325 MG TAB PO PRN (18:30)
[2022-10-22] MEDS ORDERED: MAGNESIUM SULFATE / D5W 1 GM/100 ML BAG IV ONE (19:00)
[2022-10-22] MEDS: NICOTINE 14 MG/24 HR PATCH TD SCH (19:13)
[2022-10-22 19:35] LABS: Appearance Urine Clear (Clear); Bilirubin Urine Negative (Negative); Blood Urine Negative (Negative); Color Urine Yellow; Glucose Urine UA Negative (Negative); Ketones Urine 2+ (Negative); Leukocyte Esterase Urine Negative (Negative); Nitrite Urine Negative (Negative); Protein Urine Negative (Negative); Specific Gravity Urine 1.006 (1.000-1.030); Urobilinogen Urine Negative (Negative); pH Urine 5.5 (4.5-7.5)
[2022-10-22 19:38] LABS: Adenovirus PCR Not Detected (NotDetected); Bordetella parapertussis PCR Not Detected (NotDetected); Bordetella pertussis PCR Not Detected (NotDetected); Chlamydia pneumoniae PCR Not Detected (NotDetected); Coronavirus 229E PCR Not Detected (NotDetected); Coronavirus HKU1 PCR Not Detected (NotDetected); Coronavirus NL63 PCR Not Detected (NotDetected); Coronavirus OC43PCR Not Detected (NotDetected); Human Metapneumovirus PCR Not Detected (NotDetected); Influenza A PCR Not Detected (NotDetected); Influenza B PCR Not Detected (NotDetected); Mycoplasma pneumoniae PCR Not Detected (NotDetected); Parainfluenza Virus 1 PCR Not Detected (NotDetected); Parainfluenza Virus 2 PCR Not Detected (NotDetected); Parainfluenza Virus 3 PCR Not Detected (NotDetected); Parainfluenza Virus 4 PCR Not Detected (NotDetected); Respiratory Syncytial VirusPCR Not Detected (NotDetected); Rhinovirus/Enterovirus PCR Not Detected (NotDetected)
[2022-10-22 19:44] LABS: Coronavirus CoV-2 (COVID19)PCR DETECTED (NotDetected)
[2022-10-22] MEDS ORDERED: guaiFENesin SUGAR FREE 200 MG/10 ML UDC PO PRN (19:44)
[2022-10-22] MEDS: LACTATED RINGER'S 1,000 ML IV SCH (20:37)
[2022-10-22 21:02] LABS: Calcium 7.5 mg/dl (8.5-10.1); Creatinine Clr Calc Pharmacy 126.7 ml/min; Est GFR (African American) 131.4 ml/min; Est GFR (Non-African American) 113.4 ml/min; Magnesium 2.1 mg/dl (1.7-2.4); Potassium 3.8 mmol/L (3.5-5.1)
[2022-10-22] MEDS ORDERED: HYDROmorphone INJ 0.5 MG/0.5 ML SYR IV STA (21:04)
[2022-10-22] MEDS ORDERED: SUCRALFATE 1 GM/10 ML UDC PO STA (21:33)
[2022-10-22] MEDS: ONDANSETRON INJ 2 MG/ML 2 ML VIAL IV PRN (22:04)
[2022-10-22] MEDS: LORazepam 2 MG/1 ML VIAL IV PRN (22:20)
[2022-10-23] MEDS: chlordiazePOXIDE HCl 25 MG CAP PO SCH ×5 (00:48→20:04)
[2022-10-23] MEDS: LORazepam 2 MG/1 ML VIAL IV PRN ×9 (00:49→22:58)
[2022-10-23] MEDS ORDERED: GABAPENTIN 300 MG CAP PO PRN (02:22)
[2022-10-23] MEDS: ACETAMINOPHEN 325 MG TAB PO PRN ×3 (03:29→17:08)
[2022-10-23] MEDS: ONDANSETRON INJ 2 MG/ML 2 ML VIAL IV PRN ×2 (03:32→10:48)
[2022-10-23] MEDS: LACTATED RINGER'S 1,000 ML IV SCH (06:46)
[2022-10-23] MEDS ORDERED: ALBUT/IPRATROP 3MG/0.5MG NEB 3 ML VIAL NEB SCH (07:00)
[2022-10-23] MEDS ORDERED: ALBUT/IPRATROP 3MG/0.5MG NEB 3 ML VIAL NEB PRN (08:42)
[2022-10-23] MEDS: CYANOCOBALAMIN (B-12) 500 MCG TABLET PO SCH (10:37)
[2022-10-23] MEDS: PANTOprazole 40 MG TAB PO SCH (10:37)
[2022-10-23] MEDS: THIAMINE HCL 100 MG TAB PO SCH (10:37)
[2022-10-23] MEDS: FOLIC ACID 1 MG TAB PO SCH (10:38)
[2022-10-23] MEDS: SUCRALFATE 1 GM/10 ML UDC PO SCH ×4 (10:39→20:04)
[2022-10-23] MEDS: NICOTINE 14 MG/24 HR PATCH TD SCH (13:13)
--- NOTE | 2022-10-23 14:45 | Hospitalist Progress Note ---
Date of Service October 23, 2022 Assessment & Plan (1) Alcohol withdrawal: Plan: Controlled. He is on scheduled Librium dosing. A WSS protocol as needed. CT of the abd/pelvis was negative for acute findings . (2) High anion gap metabolic acidosis: Plan: Now resolved. Serial labs (3) Tobacco abuse: Plan: Cessation recommended. Continue nicotine patch daily while hospitalized (4) Acid reflux: Plan: Treated with Protonix and Carafate (5) COVID-19: Plan: He tested positive in the ED and he does have some viral symptoms on admission. Not requiring any oxygen. Supportive care Plan Anticipate discharge to home soon, possibly tomorrow, October 24. Admission and Anticipated Discharge Date Admission Date: October 22, 2022 Subjective Alert and oriented. He states he is feeling better. He may have been viral at the time of admission with various symptoms and his nasal COVID swab was positive. He is not requiring any oxygen. Librium dosages have been adjusted. Nebulizers can be given as needed. Oral intake is adequate. IV fluids discontinued. Hopefully he can go home tomorrow, October 24 Review of Systems Review of Systems: Constitutional-no fever or chills ENT-no blurred vision, no double vision, no epistaxis, no sore throat Respiratory-no cough, no wheezing, no shortness of breath Cardiac-no palpitations, no chest pain, no syncope GI-nausea has resolved. No vomiting, diarrhea, melena, hematochezia -no urinary retention, no urinary incontinence, no dysuria, no hematuria Musculoskeletal-no joint pain, no muscle tenderness Skin-no bruising, no rashes, no pruritus Neuro-no isolated weakness, no paresthesia, no weakness Psych-no depression, no anxiety Physical Exam Physical Exam: General-alert and oriented x3, no fevers, no chills HEENT-head atraumatic and normocephalic, pupils equal and reactive to light, extraocular muscles intact Neck-no lymphadenopathy or thyromegaly, trachea midline Chest-clear to auscultation percussion. No rales wheezing or rhonchi Cardiac-regular rate and rhythm, normal S1 and S2, no murmurs Abdomen-normal bowel sounds, nontender, no hepatosplenomegaly Extremities-no cyanosis, clubbing, or edema Neuro-cranial nerves II through XII intact, motor and sensory function within normal limits, strength symmetrical , no focal deficits Psych-normal affect, normal mood Results & Data Results & Data ([facility]) Vital Signs (Past 12 Hours) Vital Signs Temp Pulse Pulse Pulse Resp BP Pulse Ox 10/23/22 14:40 37.0 C 96 H 16 118/77 96 10/23/22 13:16 37.3 C 102 H 18 118/75 95 10/23/22 06:11 88 10/23/22 10:34 38.4 C H 101 H 18 125/72 97 10/23/22 07:40 89 16 96 10/23/22 06:46 38.6 C H 103 H 19 119/70 98 10/23/22 04:27 39.2 C H 104 H 16 142/75 H 97 O2 Del Method 10/23/22 14:40 Room Air 10/23/22 13:16 Room Air 10/23/22 06:11 10/23/22 10:34 Room Air 10/23/22 07:40 Room Air 10/23/22 06:46 Room Air 10/23/22 04:27 Room Air Laboratory Results 10/22/22 13:05 10/22/22 20:28 PG Care Time/CCT Total # of Minutes Spent Total Time Spent with Patient: Total time spent is greater than 50% in coordination of care (as documented) at patient's floor/unit and/or counseling patient: Coding Level of Care Code 25827 Subseq Hosp Care Lvl 3 Diagnoses Alcohol withdrawal F10.939 High anion gap metabolic acidosis E87.29 Tobacco abuse Z72.0 Acid reflux K21.9 COVID-19 U07.1
--- NOTE | 2022-10-23 18:50 | Electrocardiogram Report ---
Test Reason : Blood Pressure : / mmHG Vent. Rate : 121 BPM Atrial Rate : 121 BPM P-R Int : 152 ms QRS Dur : 094 ms QT Int : 314 ms P-R-T Axes : 066 057 061 degrees QTc Int : 445 ms Sinus tachycardia Possible Left atrial enlargement Borderline ECG When compared with ECG of 13-SEP-2022 04:31, Vent. rate has increased BY 74 BPM Confirmed by Yung Gamez ([id number]) on 10/23/2022 6:50:10 PM Referred By: REFERRED SELF Confirmed By:Gordon Gamez
[2022-10-24] MEDS: LORazepam 2 MG/1 ML VIAL IV PRN ×8 (03:05→23:39)
[2022-10-24] MEDS: CYANOCOBALAMIN (B-12) 500 MCG TABLET PO SCH (08:41)
[2022-10-24] MEDS: chlordiazePOXIDE HCl 25 MG CAP PO SCH (08:41)
[2022-10-24] MEDS: SUCRALFATE 1 GM/10 ML UDC PO SCH ×4 (08:41→20:02)
[2022-10-24] MEDS: NICOTINE 14 MG/24 HR PATCH TD SCH (08:42)
[2022-10-24] MEDS: PANTOprazole 40 MG TAB PO SCH (08:42)
[2022-10-24] MEDS: FOLIC ACID 1 MG TAB PO SCH (08:42)
[2022-10-24] MEDS: THIAMINE HCL 100 MG TAB PO SCH (08:42)
[2022-10-24] MEDS: ONDANSETRON INJ 2 MG/ML 2 ML VIAL IV PRN ×2 (08:45→16:55)
--- NOTE | 2022-10-24 11:55 | Discharge Summary ---
Date of Service October 24, 2022 Admission HPI Per Admitting Provider Chun is a 32 year old male with a PMH significant for alcohol abuse with multiple recent admissions for alcohol withdrawal, depression with suicidal ideations, and anxiety who presented to the [facility] ED on 10/22/22 with a chief complaint of abdominal pain and palpitations. In the ED the patient was found to be afebrile, hemodynamically stable, stable on RA, but tachycardic in the 110s- 120s. Labs were remarkable for a WBC of 11.88, absolute neutrophils of 9.94, stable hgb and platelets, stable cr of 0.92 AG of 23, bicarb of 14, sodium of 135, total bili of 1.1, ATS of 208, ALT of 92, TSH of 0.743, and alcohol level of 150.8. CT of the abdomen/pelvis with IV contrast was read as "1. No bowel wall thickening or obstruction 2. Normal appendix. 3. No hydronephrosis. 4. Hepatic steatosis again noted.". The patient was initially given 1L NSS, a banana bag, 50mg PO Librium, 5 mg then 10 mg IV Valium, an was started CIWA.The ED staff spoke with the patient regarding staying for alcohol withdrawal or going home if her was going to continue drinking, he wishes to be admitted for alcohol withdrawal. Per chart review, the patient was last admitted to [facility] from 10/05/22- 10/09/22 for alcohol withdrawal and suicidal ideations . He required minimal treatment for his alcohol withdrawal. He was eventually discharged to [place] rehab facility. At the time of the exam the patient was sitting comfortably in bed in no acute distress. He states that for the past week he has experienced URI symptoms including fever, chills, nausea, non-bloody emesis, and poor oral intake. He states that he was discharged from [place] a little over a week ago and started drinking shortly after. He states that he did not enjoy his time there as it felt more like a [facility] with people court ordered to be there then a rehab facility where people are voluntarily trying to get sober. He states that he had 4-5 vodka drinks this am as he felt as though he was starting to withdrawal. He is currently experiencing tremors, tachycardia, and has a headache. He is not currently experiencing hallucinations and denies homicidal and suicidal ideations. He would be interested in trying to find another rehab facility. Please refer to Dr. Baird's attestation for any changes to the treatment plan. Principal Diagnosis Alcohol withdraw , high anion gap metabolic acidosis, COVID positive Discharge Exam General-alert and oriented x3, no fevers, no chills HEENT-head atraumatic and normocephalic, pupils equal and reactive to light, extraocular muscles intact Neck-no lymphadenopathy or thyromegaly, trachea midline Chest-clear to auscultation percussion. No rales wheezing or rhonchi Cardiac-regular rate and rhythm, normal S1 and S2, no murmurs Abdomen-normal bowel sounds, nontender, no hepatosplenomegaly Extremities-no cyanosis, clubbing, or edema Neuro-cranial nerves II through XII intact, motor and sensory function within normal limits, strength symmetrical , no focal deficits Psych-normal affect, normal mood Discharge Data Allergies Allergy/AdvReac Type Severity Reaction Status Date / Time bupropion [From Wellbutrin] AdvReac Severe anxiety, Verified 10/22/22 16:12 confussion buspirone [From BuSpar] AdvReac Intermediate Shaking/john Verified 10/22/22 16:12 mor gluten AdvReac Intermediate Gastrointestinal Verified 10/22/22 16:12 Upset milk AdvReac Intermediate Gastrointestinal Verified 10/22/22 16:12 Upset antihistamines AdvReac Intermediate "Just Uncoded 10/22/22 16:12 Don't Feel Right When I Take Them" Consultations 10/22/22 17:50 ED Decision to Admit Stat Ordered Studies 10/22/22 13:02 CT abd pelvis IV con only Stat Hospital Course (1) Alcohol withdrawal: Controlled. He is on scheduled Librium dosing. A WSS protocol as needed. CT of the abd/pelvis was negative for acute findings . Will discharge on a Librium tapering dose (2) High anion gap metabolic acidosis: Now resolved. Serial labs (3) Tobacco abuse: Cessation recommended. Continue nicotine patch daily while hospitalized (4) Acid reflux: Treated with Protonix and Carafate (5) COVID-19: He tested positive in the ED and he does have some viral symptoms on admission. Not requiring any oxygen. Supportive care. Encouraged him to take vitamin D and zinc supplements for at least 1 week post discharge Plan discharge to home todayOctober 24. Total Time Total Time Spent Total Time Spent (In Minutes): 35 minutes Discharge Plan Discharge Items Patient Disposition: Home - Self-Care Reason For Visit: ABDOMINAL PAIN AND PALPITATIONS Discharge Diagnosis: Alcohol withdrawal, high anion gap metabolic acidosis, COVID viral syndrome Activity: As commented below Activity Comment: Self quarantine for 10 days from date of original COVID diagnosis Non-emergency contact: Primary Care Provider Call non-emergency contact if: you have any medication questions Follow-up/Referrals: Bri Cervantes MD [Primary Care Provider] - Diet: Regular Addtl Attending Provider Instructions: Self quarantine for 10 days from the date of the COVID diagnosis. Take vitamin D supplements and zinc supplements for 1 week. Take Librium 10 mg 3 times a day for 2 days, then twice a day for 2 days, then once a day for 2 days, then stop Pending Studies at Discharge: No Stand-Alone Forms: [employer], Smoking Cessation Medications and DC Order Prescriptions: New chlordiazepoxide HCl 10 mg Capsule 10 mg PO TID Qty: 12 0RF ondansetron 4 mg tablet,disintegrating 4 mg PO Q4H PRN (Reason: nausea and vomiting) Qty: 14 0RF Rx Instructions: give 1st dose 30min before emetogenic chemo Continued pantoprazole 40 mg Tablet,Delayed Release (Dr/Ec) 40 mg PO QAM Qty: 30 0RF cyanocobalamin (vitamin B-12) 500 mcg Tablet 1,000 mcg PO QAM Qty: 30 0RF folic acid 1 mg Tablet 1 mg PO QAM Qty: 30 0RF thiamine HCl (vitamin B1) 100 mg tablet 100 mg PO DAILY Qty: 30 0RF fexofenadine 180 mg tablet 180 mg PO QAM PRN (Reason: Other) Rx Instructions: Take as needed for seasonal allergies gabapentin 300 mg Capsule 300 mg PO TID PRN (Reason: Anxiety) Qty: 6 0RF multivitamin Tablet 1 tab PO DAILY Qty: 30 1RF Discharge Orders: Discharge Order (Routine); Ordered 10/24/22 Ordered By: Torres Benton Admission Data Admit Date/Time: 10/22/22 17:59 Attending Provider: Torres Benton Admit Provider: Meet Baird Primary Care Provider: Bri Cervantes Other Providers: Meet Baird Coding Level of Care Code D/C DAY MANAGEMENT >30 MINS Diagnoses Alcohol withdrawal F10.939 High anion gap metabolic acidosis E87.29 Tobacco abuse Z72.0 Acid reflux K21.9 COVID-19 U07.1
--- NOTE | 2022-10-24 12:02 | Discharge Summary ---
Date of Service October 24, 2022 Admission HPI Per Admitting Provider Chun is a 32 year old male with a PMH significant for alcohol abuse with multiple recent admissions for alcohol withdrawal, depression with suicidal ideations, and anxiety who presented to the [facility] ED on 10/22/22 with a chief complaint of abdominal pain and palpitations. In the ED the patient was found to be afebrile, hemodynamically stable, stable on RA, but tachycardic in the 110s- 120s. Labs were remarkable for a WBC of 11.88, absolute neutrophils of 9.94, stable hgb and platelets, stable cr of 0.92 AG of 23, bicarb of 14, sodium of 135, total bili of 1.1, ATS of 208, ALT of 92, TSH of 0.743, and alcohol level of 150.8. CT of the abdomen/pelvis with IV contrast was read as "1. No bowel wall thickening or obstruction 2. Normal appendix. 3. No hydronephrosis. 4. Hepatic steatosis again noted.". The patient was initially given 1L NSS, a banana bag, 50mg PO Librium, 5 mg then 10 mg IV Valium, an was started CIWA.The ED staff spoke with the patient regarding staying for alcohol withdrawal or going home if her was going to continue drinking, he wishes to be admitted for alcohol withdrawal. Per chart review, the patient was last admitted to [facility] from 10/05/22- 10/09/22 for alcohol withdrawal and suicidal ideations . He required minimal treatment for his alcohol withdrawal. He was eventually discharged to [facility] re[facility] facility. At the time of the exam the patient was sitting comfortably in bed in no acute distress. He states that for the past week he has experienced URI symptoms including fever, chills, nausea, non-bloody emesis, and poor oral intake. He states that he was discharged from [facility] a little over a week ago and started drinking shortly after. He states that he did not enjoy his time there as it felt more like a [facility]ry [facility] with people court ordered to be there then a rehab facility where people are voluntarily trying to get sober. He states that he had 4-5 vodka drinks this am as he felt as though he was starting to withdrawal. He is currently experiencing tremors, tachycardia, and has a headache. He is not currently experiencing hallucinations and denies homicidal and suicidal ideations. He would be interested in trying to find another rehab facility. Please refer to Dr. Baird's attestation for any changes to the treatment plan. Principal Diagnosis Alcohol withdrawal, COVID viral syndrome, high anion gap metabolic acidosis Discharge Data Allergies Allergy/AdvReac Type Severity Reaction Status Date / Time bupropion [From Wellbutrin] AdvReac Severe anxiety, Verified 10/22/22 16:12 confussion buspirone [From BuSpar] AdvReac Intermediate Shaking/john Verified 10/22/22 16:12 mor gluten AdvReac Intermediate Gastrointestinal Verified 10/22/22 16:12 Upset milk AdvReac Intermediate Gastrointestinal Verified 10/22/22 16:12 Upset antihistamines AdvReac Intermediate "Just Uncoded 10/22/22 16:12 Don't Feel Right When I Take Them" Consultations 10/22/22 17:50 ED Decision to Admit Stat Ordered Studies 10/22/22 13:02 CT abd pelvis IV con only Stat Total Time Total Time Spent Total Time Spent (In Minutes): 35 minutes Discharge Plan Discharge Items Patient Disposition: Home - Self-Care Reason For Visit: ABDOMINAL PAIN AND PALPITATIONS Discharge Diagnosis: Alcohol withdrawal, high anion gap metabolic acidosis, COVID viral syndrome Activity: As commented below Activity Comment: Self quarantine for 10 days from date of original COVID diagnosis Non-emergency contact: Primary Care Provider Call non-emergency contact if: you have any medication questions Follow-up/Referrals: Bri Cervantes MD [Primary Care Provider] - Diet: Regular Addtl Attending Provider Instructions: Self quarantine for 10 days from the date of the COVID diagnosis. Take vitamin D supplements and zinc supplements for 1 week. Take Librium 10 mg 3 times a day for 2 days, then twice a day for 2 days, then once a day for 2 days, then stop Pending Studies at Discharge: No Stand-Alone Forms: My [employer], Smoking Cessation Medications and DC Order Prescriptions: New ondansetron 4 mg tablet,disintegrating 4 mg PO Q4H PRN (Reason: nausea and vomiting) Qty: 14 0RF Rx Instructions: give 1st dose 30min before emetogenic chemo chlordiazepoxide HCl 10 mg capsule See Rx Instructions .ROUTE .COMPLEX Qty: 12 0RF Rx Instructions: 10 mg orally 3 times a day for 2 days, then twice a day for 2 days, then once a day for 2 days, then stop Continued pantoprazole 40 mg Tablet,Delayed Release (Dr/Ec) 40 mg PO QAM Qty: 30 0RF cyanocobalamin (vitamin B-12) 500 mcg Tablet 1,000 mcg PO QAM Qty: 30 0RF folic acid 1 mg Tablet 1 mg PO QAM Qty: 30 0RF thiamine HCl (vitamin B1) 100 mg tablet 100 mg PO DAILY Qty: 30 0RF fexofenadine 180 mg tablet 180 mg PO QAM PRN (Reason: Other) Rx Instructions: Take as needed for seasonal allergies gabapentin 300 mg Capsule 300 mg PO TID PRN (Reason: Anxiety) Qty: 6 0RF multivitamin Tablet 1 tab PO DAILY Qty: 30 1RF Discharge Orders: Discharge Order (Routine); Ordered 10/24/22 Ordered By: Torres Benton Admission Data Admit Date/Time: 10/22/22 17:59 Attending Provider: Torres Benton Admit Provider: Meet Baird Primary Care Provider: Bri Cervantes Other Providers: Meet Baird Coding Level of Care Code D/C DAY MANAGEMENT >30 MINS
[2022-10-24] MEDS: ACETAMINOPHEN 325 MG TAB PO PRN ×2 (14:32→20:02)
--- NOTE | 2022-10-24 14:44 | Hospitalist Progress Note ---
Date of Service October 24, 2022 Assessment & Plan (1) Alcohol withdrawal: Plan: Controlled. He is on scheduled Librium dosing. Librium should gradually be tapered off. AWSS protocol as needed. CT of the abd/pelvis was negative for acute findings . (2) High anion gap metabolic acidosis: Plan: Now resolved. Serial labs (3) Tobacco abuse: Plan: Cessation recommended. Continue nicotine patch daily while hospitalized (4) Acid reflux: Plan: Treated with Protonix and Carafate (5) COVID-19: Plan: He tested positive in the ED and he does have some viral symptoms on admission. Not requiring any oxygen. Supportive care. Encouraged him to take vitamin D and zinc supplements for at least 1 week post discharge Plan He was going to be discharged home today, October 24, but change his mind and states he feels unsafe and would rather go to an inpatient alcohol rehab facility. Case management is aware and working on this. . Admission and Anticipated Discharge Date Admission Date: October 22, 2022 Subjective No significant changes. He is stable. He was going to be discharged home today but he stated he would rather go to an alcoholism facility. Anticipated discharge was canceled and case management is aware and proceeding with placement. Otherwise stable Review of Systems Review of Systems: Constitutional-no fever or chills ENT-no blurred vision, no double vision, no epistaxis, no sore throat Respiratory-no cough, no wheezing, no shortness of breath Cardiac-no palpitations, no chest pain, no syncope GI-nausea has resolved. No vomiting, diarrhea, melena, hematochezia -no urinary retention, no urinary incontinence, no dysuria, no hematuria Musculoskeletal-no joint pain, no muscle tenderness Skin-no bruising, no rashes, no pruritus Neuro-no isolated weakness, no paresthesia, no weakness Psych-no depression, no anxiety Physical Exam Physical Exam: General-alert and oriented x3, no fevers, no chills HEENT-head atraumatic and normocephalic, pupils equal and reactive to light, extraocular muscles intact Neck-no lymphadenopathy or thyromegaly, trachea midline Chest-clear to auscultation percussion. No rales wheezing or rhonchi Cardiac-regular rate and rhythm, normal S1 and S2, no murmurs Abdomen-normal bowel sounds, nontender, no hepatosplenomegaly Extremities-no cyanosis, clubbing, or edema Neuro-cranial nerves II through XII intact, motor and sensory function within normal limits, strength symmetrical , no focal deficits Psych-normal affect, normal mood Results & Data Results & Data ([facility]) Vital Signs (Past 12 Hours) Vital Signs Temp Pulse Pulse Resp BP Pulse Ox O2 Del Method 10/24/22 14:21 36.9 C 88 18 119/76 97 Room Air 10/24/22 12:06 37.7 C H 100 H 18 113/78 96 Room Air 10/24/22 06:06 82 10/24/22 08:08 36.5 C 90 19 108/72 96 Room Air 10/24/22 04:15 37.1 C 80 16 120/75 97 Room Air 10/24/22 03:03 37 C 101 H 17 103/72 97 Room Air Laboratory Results 10/22/22 13:05 10/22/22 20:28 PG Care Time/CCT Total # of Minutes Spent Total Time Spent with Patient: Total time spent is greater than 50% in coordination of care (as documented) at patient's floor/unit and/or counseling patient: Coding Level of Care Code 78460 SUB INP/OBS CARE 3/50MIN Diagnoses Alcohol withdrawal F10.939 High anion gap metabolic acidosis E87.29 Tobacco abuse Z72.0 Acid reflux K21.9 COVID-19 U07.1
--- NOTE | 2022-10-24 14:45 | Discharge Summary ---
Date of Service October 24, 2022 Admission HPI Per Admitting Provider Chun is a 32 year old male with a PMH significant for alcohol abuse with multiple recent admissions for alcohol withdrawal, depression with suicidal ideations, and anxiety who presented to the [facility] ED on 10/22/22 with a chief complaint of abdominal pain and palpitations. In the ED the patient was found to be afebrile, hemodynamically stable, stable on RA, but tachycardic in the 110s- 120s. Labs were remarkable for a WBC of 11.88, absolute neutrophils of 9.94, stable hgb and platelets, stable cr of 0.92 AG of 23, bicarb of 14, sodium of 135, total bili of 1.1, ATS of 208, ALT of 92, TSH of 0.743, and alcohol level of 150.8. CT of the abdomen/pelvis with IV contrast was read as "1. No bowel wall thickening or obstruction 2. Normal appendix. 3. No hydronephrosis. 4. Hepatic steatosis again noted.". The patient was initially given 1L NSS, a banana bag, 50mg PO Librium, 5 mg then 10 mg IV Valium, an was started CIWA.The ED staff spoke with the patient regarding staying for alcohol withdrawal or going home if her was going to continue drinking, he wishes to be admitted for alcohol withdrawal. Per chart review, the patient was last admitted to [facility] from 10/05/22- 10/09/22 for alcohol withdrawal and suicidal ideations . He required minimal treatment for his alcohol withdrawal. He was eventually discharged to [facility] rehab facility. At the time of the exam the patient was sitting comfortably in bed in no acute distress. He states that for the past week he has experienced URI symptoms including fever, chills, nausea, non-bloody emesis, and poor oral intake. He states that he was discharged from [facility] a little over a week ago and started drinking shortly after. He states that he did not enjoy his time there as it felt more like a [facility]ry [facility] with people court ordered to be there then a rehab facility where people are voluntarily trying to get sober. He states that he had 4-5 vodka drinks this am as he felt as though he was starting to withdrawal. He is currently experiencing tremors, tachycardia, and has a headache. He is not currently experiencing hallucinations and denies homicidal and suicidal ideations. He would be interested in trying to find another rehab facility. Please refer to Dr. Baird's attestation for any changes to the treatment plan. Principal Diagnosis Alcohol withdrawal Discharge Data Allergies Allergy/AdvReac Type Severity Reaction Status Date / Time bupropion [From Wellbutrin] AdvReac Severe anxiety, Verified 10/22/22 16:12 confussion buspirone [From BuSpar] AdvReac Intermediate Shaking/john Verified 10/22/22 16:12 mor gluten AdvReac Intermediate Gastrointestinal Verified 10/22/22 16:12 Upset milk AdvReac Intermediate Gastrointestinal Verified 10/22/22 16:12 Upset antihistamines AdvReac Intermediate "Just Uncoded 10/22/22 16:12 Don't Feel Right When I Take Them" Consultations 10/22/22 17:50 ED Decision to Admit Stat Ordered Studies 10/22/22 13:02 CT abd pelvis IV con only Stat Total Time Total Time Spent Total Time Spent (In Minutes): 35 minutes Discharge Plan Discharge Items Patient Disposition: Home - Self-Care Reason For Visit: ABDOMINAL PAIN AND PALPITATIONS Discharge Diagnosis: Alcohol withdrawal, high anion gap metabolic acidosis, COVID viral syndrome Activity: As commented below Activity Comment: Self quarantine for 10 days from date of original COVID diagnosis Non-emergency contact: Primary Care Provider Call non-emergency contact if: you have any medication questions Follow-up/Referrals: Bri Cervantes MD [Primary Care Provider] - 11/01/22 12:00 pm Diet: Regular Addtl Attending Provider Instructions: Self quarantine for 10 days from the date of the COVID diagnosis. Take vitamin D supplements and zinc supplements for 1 week. Take Librium 10 mg 3 times a day for 2 days, then twice a day for 2 days, then once a day for 2 days, then stop Pending Studies at Discharge: No Stand-Alone Forms: My [facility] [employer], Smoking Cessation Medications and DC Order Prescriptions: Continued pantoprazole 40 mg Tablet,Delayed Release (Dr/Ec) 40 mg PO QAM Qty: 30 0RF cyanocobalamin (vitamin B-12) 500 mcg Tablet 1,000 mcg PO QAM Qty: 30 0RF folic acid 1 mg Tablet 1 mg PO QAM Qty: 30 0RF thiamine HCl (vitamin B1) 100 mg tablet 100 mg PO DAILY Qty: 30 0RF fexofenadine 180 mg tablet 180 mg PO QAM PRN (Reason: Other) Rx Instructions: Take as needed for seasonal allergies gabapentin 300 mg Capsule 300 mg PO TID PRN (Reason: Anxiety) Qty: 6 0RF multivitamin Tablet 1 tab PO DAILY Qty: 30 1RF Discharge Orders: Discharge Order (Routine); Ordered 10/24/22 Ordered By: Torres Benton Admission Data Admit Date/Time: 10/22/22 17:59 Attending Provider: Torres Benton Admit Provider: Meet Baird Primary Care Provider: Bri Cervantes Other Providers: Meet Baird Coding Level of Care Code None
[2022-10-25] MEDS: LORazepam 2 MG/1 ML VIAL IV PRN ×4 (03:21→20:18)
[2022-10-25] MEDS: SUCRALFATE 1 GM/10 ML UDC PO SCH ×4 (08:52→20:19)
[2022-10-25] MEDS: NICOTINE 14 MG/24 HR PATCH TD SCH (08:53)
[2022-10-25] MEDS: CYANOCOBALAMIN (B-12) 500 MCG TABLET PO SCH (08:54)
[2022-10-25] MEDS: FOLIC ACID 1 MG TAB PO SCH (08:54)
[2022-10-25] MEDS: THIAMINE HCL 100 MG TAB PO SCH (08:55)
[2022-10-25] MEDS: PANTOprazole 40 MG TAB PO SCH (08:55)
[2022-10-25 10:27] LABS: Albumin Globulin Ratio 1.3 (0.9-2); Albumin Level 3.9 gm/dl (3.4-5.0); BUN Creatinine Ratio 10.8 (10-20); Bilirubin,Total 0.5 mg/dl (0.2-1.0); Calcium 9.1 mg/dl (8.5-10.1); Creatinine Clr Calc Pharmacy 126.3 ml/min; Est GFR (African American) 126.3 ml/min; Globulin 3.1 gm/dl (2.5-4.0); Potassium 3.9 mmol/L (3.5-5.1)
[2022-10-25 12:58] LABS: Basophils # (auto) 0.02 K/uL (0-0.2); Basophils % (auto) 0.6 %; Eosinophils # (auto) 0.04 K/uL (0-0.50); Eosinophils % (auto) 1.2 %; Hematocrit (blood only) 45.7 % (40.1-51.0); Immature Granulocytes # (auto) 0.01 K/uL (0.00-0.02); Immature Granulocytes % (auto) 0.3 %; Lymphocytes # (auto) 1.14 K/uL (1.2-3.4); Lymphocytes % (auto) 33.8 %; Mean Corpuscular Hemoglobin 32.7 pg (25.0-34.0); Mean Corpuscular Volume 93.3 fL (80.0-100.0); Mean Platelet Volume 11.1 fL (9.4-12.4); Monocytes # (auto) 0.37 K/uL (0.24-0.82); Neutrophils # (auto) 1.79 K/uL (1.4-6.5); Neutrophils % (auto) 53.1 %; Platelet Count 183 K/uL (130-400); RDW Coefficient of Variation 12.3 % (11.5-14.5); RDW Standard Deviation 42.7 fL (36.4-46.3); White Blood Count 3.37 K/ul (4.8-10.8)
[2022-10-25] MEDS: ONDANSETRON INJ 2 MG/ML 2 ML VIAL IV PRN (14:35)
[2022-10-25] MEDS: ACETAMINOPHEN 325 MG TAB PO PRN (20:17)
--- NOTE | 2022-10-25 20:43 | Hospitalist Progress Note ---
Date of Service October 25, 2022 Assessment & Plan (1) Alcohol withdrawal: Plan: Resolving. Cont Librium taper. Ativan via AWSS protocol. no signs of DTs. the "waterfall" he sees with eyes closed doesn't sound like true psychosis; he has had visual images like this during past admission. For alcoholism - he is self-investigating rehab centers near [place] will discuss this with case management tomorrow (2) High anion gap metabolic acidosis: Plan: Now resolved. (3) Tobacco abuse: Plan: Cessation recommended. Continue nicotine patch daily while hospitalized. (4) Acid reflux: Plan: Cont Protonix and Carafate (5) COVID-19: Plan: mild no indication for steroids, Remdesivir, etc mild leukopenia is likely from COVID - repeat CBC in 2 days for stability mild elevation LFTs - either due to etoh or COVID or both - either way they are normalizing Plan DVT proph - ambulating without difficulty Admission and Anticipated Discharge Date Admission Date: October 22, 2022 Subjective from COVID standpoint feels better today fever "broke" overnight no chills appetite better no myalgias minimal cough no dyspnea he is investigating inpatient rehab options for his alcoholism he found 2 places near [place] he is coordinating with a group social worker with his [employer] insurance? he wishes to d/c home first THEN go to rehab Review of Systems Review of Systems: gen - no fevers/chills today HENT - mild congestion GI - no N/V/D psych - states when he closes his eyes he "sees a waterfall" neuro - no tremors Physical Exam Physical Exam: gen - looks mildly ill but nontoxic mouth - MMM heart - RRR, s1 s2, no murmur lungs - CTA b/l abd - soft NT ND BS+ ext - no edema, pulses 2+ b/l neuro - no tremors psych - a/o x 3; no signs of DTs Results & Data Results & Data ([facility]) Vital Signs (Past 12 Hours) Vital Signs Temp Pulse Resp BP Pulse Ox O2 Del Method 10/25/22 14:21 36.5 C 101 H 18 120/87 97 Room Air 10/25/22 12:00 36.9 C 79 18 116/69 100 Room Air Laboratory Results Laboratory Results - last 24 hr 10/25/22 10/25/22 10/25/22 09:46 09:46 09:46 WBC Cancelled 3.37 L RBC Cancelled 4.90 Hgb Cancelled 16.0 Hct Cancelled 45.7 MCV Cancelled 93.3 MCH Cancelled 32.7 MCHC Cancelled 35.0 RDW Std Deviation Cancelled 42.7 RDW Coeff of Bryanna Cancelled 12.3 Plt Count Cancelled 183 MPV Cancelled 11.1 Immature Gran % (Auto) Cancelled 0.3 Neut % (Auto) Cancelled 53.1 Lymph % (Auto) Cancelled 33.8 Berks % (Auto) Cancelled 11.0 Eos % (Auto) Cancelled 1.2 Baso % (Auto) Cancelled 0.6 Neut # (Auto) Cancelled 1.79 Lymph # (Auto) Cancelled 1.14 L Berks # (Auto) Cancelled 0.37 Eos # (Auto) Cancelled 0.04 Baso # (Auto) Cancelled 0.02 Immature Gran # (Auto) Cancelled 0.01 Absolute Nucleated RBC Cancelled Nucleated RBC % (auto) Cancelled Neutrophils % (Manual) Cancelled Band Neutrophils % Cancelled Lymphocytes % (Manual) Cancelled Prolymphocyte % Cancelled Reactive Lymphs % (Man) Cancelled Monocytes % (Manual) Cancelled Eosinophils % (Manual) Cancelled Basophils % (Manual) Cancelled Metamyelocytes % (Man) Cancelled Myelocytes % (Man) Cancelled Promyelocytes % (Man) Cancelled Blast Cells % (Manual) Cancelled Plasma Cell % (Manual) Cancelled Other Cells % Cancelled Nucleated RBC % Cancelled Neutrophils # (Manual) Cancelled Band Neutrophils # Cancelled Total Absolute Neuts Cancelled Lymphocytes # (Manual) Cancelled Prolymphocyte # Cancelled Reactive Lymphs # Cancelled Total Abs Lymphocytes Cancelled Monocytes # (Manual) Cancelled Eosinophils # (Manual) Cancelled Basophils # (Manual) Cancelled Metamyelocytes # (Man) Cancelled Myelocytes # (Manual) Cancelled Promyelocytes # (Man) Cancelled Blast Cells # (Man) Cancelled Plasma Cell # (Manual) Cancelled Other Cells # Cancelled Nucleated RBCs # (Man) Cancelled Hypersegmented Neuts Cancelled Hyposegmented Neuts Cancelled Hypogranular Neuts Cancelled Large Granular Lymphs Cancelled # Lrg Granular Lymphs Cancelled Hairy Cells Cancelled Smudge Cells Cancelled Toxic Granulation Cancelled Toxic Vacuolation Cancelled Dohle Bodies Cancelled Wes Rods Cancelled Platelet Estimate Cancelled Hypogranular Platelets Cancelled Clumped Platelets Cancelled Giant Platelets Cancelled Platelet Satelliting Cancelled RBC Morphology Cancelled Polychromasia Cancelled Hypochromasia Cancelled Poikilocytosis Cancelled Basophilic Stippling Cancelled Anisocytosis Cancelled Microcytosis Cancelled Macrocytosis Cancelled Spherocytes Cancelled Pappenheimer Bodies Cancelled Sickle Cells Cancelled Target Cells Cancelled Tear Drop Cells Cancelled Ovalocytes Cancelled Stomatocytes Cancelled Goodman-Mustang Bodies Cancelled Echinocytes Cancelled Acanthocytes (Spur) Cancelled Rouleaux Cancelled RBC Agglutinates Cancelled Schistocytes Cancelled Sezary Cell Cancelled Sodium 138 Potassium 3.9 Chloride 103 Carbon Dioxide 30 Anion Gap 5 BUN 10 Creatinine 0.93 Est Cr Clr Drug Dosing 126.3 Est GFR ( Amer) 126.3 Est GFR (Non-Af Amer) 109.0 BUN/Creatinine Ratio 10.8 Glucose 100 H Calcium 9.1 Total Bilirubin 0.5 AST 50 H ALT 39 Alkaline Phosphatase 43 Total Protein 7.0 Albumin 3.9 Globulin 3.1 Albumin/Globulin Ratio 1.3 Blood Parasites ID Cancelled PG Care Time/CCT Total # of Minutes Spent Total Time Spent with Patient: Total time spent is greater than 50% in coordination of care (as documented) at patient's floor/unit and/or counseling patient: Coding Level of Care Code 93577 SUB INP/OBS CARE 2/35MIN Diagnoses Alcohol withdrawal F10.939 High anion gap metabolic acidosis E87.29 Tobacco abuse Z72.0 Acid reflux K21.9 COVID-19 U07.1
[2022-10-26] MEDS: FOLIC ACID 1 MG TAB PO SCH (08:33)
[2022-10-26] MEDS: SUCRALFATE 1 GM/10 ML UDC PO SCH ×3 (08:33→17:50)
[2022-10-26] MEDS: CYANOCOBALAMIN (B-12) 500 MCG TABLET PO SCH (08:34)
[2022-10-26] MEDS: THIAMINE HCL 100 MG TAB PO SCH (08:34)
[2022-10-26] MEDS: PANTOprazole 40 MG TAB PO SCH (08:34)
[2022-10-26] MEDS: NICOTINE 14 MG/24 HR PATCH TD SCH (08:35)
--- NOTE | 2022-10-26 20:33 | Discharge Summary ---
Date of Service date of admission - October 22, 2022 date of discharge - October 26, 2022 Admission HPI Per Admitting Provider Chun is a 32 year old male with a PMH significant for alcohol abuse with multiple recent admissions for alcohol withdrawal, depression with suicidal ideations, and anxiety who presented to the [facility] ED on 10/22/22 with a chief complaint of abdominal pain and palpitations. In the ED the patient was found to be afebrile, hemodynamically stable, stable on RA, but tachycardic in the 110s- 120s. Labs were remarkable for a WBC of 11.88, absolute neutrophils of 9.94, stable hgb and platelets, stable cr of 0.92 AG of 23, bicarb of 14, sodium of 135, total bili of 1.1, ATS of 208, ALT of 92, TSH of 0.743, and alcohol level of 150.8. CT of the abdomen/pelvis with IV contrast was read as "1. No bowel wall thickening or obstruction 2. Normal appendix. 3. No hydronephrosis. 4. Hepatic steatosis again noted.". The patient was initially given 1L NSS, a banana bag, 50mg PO Librium, 5 mg then 10 mg IV Valium, an was started CIWA.The ED staff spoke with the patient regarding staying for alcohol withdrawal or going home if her was going to continue drinking, he wishes to be admitted for alcohol withdrawal. Per chart review, the patient was last admitted to [facility] from 10/05/22- 10/09/22 for alcohol withdrawal and suicidal ideations . He required minimal treatment for his alcohol withdrawal. He was eventually discharged to [place] [facility] rehab facility. At the time of the exam the patient was sitting comfortably in bed in no acute distress. He states that for the past week he has experienced URI symptoms including fever, chills, nausea, non-bloody emesis, and poor oral intake. He states that he was discharged from [facility] a little over a week ago and started drinking shortly after. He states that he did not enjoy his time there as it felt more like a [facility] with people court ordered to be there then a rehab facility where people are voluntarily trying to get sober. He states that he had 4-5 vodka drinks this am as he felt as though he was starting to withdrawal. He is currently experiencing tremors, tachycardia, and has a headache. He is not currently experiencing hallucinations and denies homicidal and suicidal ideations. He would be interested in trying to find another rehab facility. Principal Diagnosis 1. COVID-19 infection 2. Sinus tachycardia 2nd to fever/SIRS from COVID-19 infection, dehydration, etc 3. Alcohol abuse with probable mild withdrawal Discharge Exam gen - looks much better than previous visits, NAD, no signs/symptoms of withdrawal mouth - MMM heart - RRR, s1 s2, no murmur lungs - CTA b/l abd - soft NT ND BS+ ext - no edema, pulses 2+ b/l neuro - no tremors psych - a/o x 3; no signs of DTs Discharge Data Allergies Allergy/AdvReac Type Severity Reaction Status Date / Time bupropion [From Wellbutrin] AdvReac Severe anxiety, Verified 10/22/22 16:12 confussion buspirone [From BuSpar] AdvReac Intermediate Shaking/john Verified 10/22/22 16:12 mor gluten AdvReac Intermediate Gastrointestinal Verified 10/22/22 16:12 Upset milk AdvReac Intermediate Gastrointestinal Verified 10/22/22 16:12 Upset antihistamines AdvReac Intermediate "Just Uncoded 10/22/22 16:12 Don't Feel Right When I Take Them" Ordered Studies Abdomen/Pelvis CT 10/22/22 13:[address] WITH IV CONTRAST CT DOSE: 299.98 mGy.cm HISTORY: Right-sided abdominal pain. TECHNIQUE: Multiaxial CT images of the abdomen and pelvis were performed following the use of intravenous contrast. A dose lowering technique was utilized adhering to the principles of ALARA. COMPARISON STUDY: Abdomen and pelvis CT 01/30/2022. FINDINGS: The lung bases are clear. No pneumoperitoneum. No pneumatosis. Bilateral L5 spondylolysis. Hepatic steatosis again noted. The gallbladder, pancreas, spleen, adrenal glands, and kidneys are unremarkable. No hydronephrosis. The main portal vein is patent. No retroperitoneal lymphade nopathy. Normal caliber abdominal aorta. Normal bladder. No pelvic free fluid. No bowel wall thickening or obstruction. Normal appendix. IMPRESSION: 1. No bowel wall thickening or obstruction. 2. Normal appendix. 3. No hydronephrosis. 4. Hepatic steatosis again noted. ACT 112: Negative or not required by law. Electronically signed by: Martinez Quarles M.D. 10/22/2022 3:07 PM Hospital Course (1) Alcohol withdrawal: Mild symptoms at most. Treated with Librium taper. Ativan via AWSS protocol employed as well. No ativan usage in the 24 hours leading up to discharge. No signs of DTs. For alcoholism - he is self-investigating inpatient rehab centers near the [facility]. He is working with a family welfare social work professor via his health insurance to investigate these rehab centers. Patient is discharging home first, and will enter an inpatient rehab facility likely within a week of discharge. (2) COVID-19: mild no indication for steroids, Remdesivir, etc lung exam was wnl during the stay, and o2 sats were normal as well last documented fever was 10/24/22 had mild leukopenia late in the stay - likely from COVID infection he also had mild elevation in his LFTs - either due to etoh or COVID or both -AST was nearly normal by discharge -ALT was normal at discharge recommend CBC + CMP at time of hospital follow-up for stability (3) High anion gap metabolic acidosis: Resolved. 2nd to dehydration/vomiting in the setting of COVID-19 infection and alcohol abuse (alcohol level was 150 at ER presentation). (4) Tobacco abuse: Cessation recommended. (5) Acid reflux: Cont Protonix. (6) Major depressive disorder, recurrent episode: history of such. has required inpatient psychiatric treatment in the past. no suicidal ideations during this stay. no depressive symptoms voiced during this stay. (7) Enlarged liver: fatty liver - 2nd to alcohol abuse. alcohol cessation needed. (8) Elevated liver enzymes: 2nd to EtoH abuse or COVID or both. LFTs improved while here. recommend repeat LFTs at time of hospital follow-up for stability/normalization. (9) Sinus tachycardia: EKG at time of presentation showed sinus tachycardia only Intervals were normal on EKG Telemetry was normal while here Patient states his HR was 180+ BPM at home prior to presentation in the ER? Tachycardia was likely 2nd to severe dehydration from pre-hospital vomiting/dehydration, recent alcohol use, and COVID infection I recommended to the patient that if he has palpitations at home, confirmed HRs >150s, etc that he should talk to his PCP about having a 30-day event monitor at home TSH on 10/22/22 was wnl Hemoglobin on CBC was wnl Total Time Total Time Spent Total Time Spent (In Minutes): 25 Discharge Plan Discharge Items Patient Disposition: Home - Self-Care Reason For Visit: ABDOMINAL PAIN AND PALPITATIONS Discharge Diagnosis: 1. Alcohol withdrawal - resolved 2. COVID-19 infection - resolving 3. sinus tachycardia upon presentation to the ER - resolved with IV fluids; fast heart rate likely due to severe dehydration from vomiting, recent alcohol use, and COVID infection 4. tobacco use Activity: As commented below Activity Comment: gradually increase activities over 2-3 days as you recover from COVID Non-emergency contact: Primary Care Provider Call non-emergency contact if: you have any medication questions and your symptoms worsen Follow-up/Referrals: Bri Cervantes MD [Primary Care Provider] - 11/01/22 12:00 pm Diet: Regular Addtl Attending Provider Instructions: Mr Block, You were hospitalized for dehydration, COVID-19 infection, and alcohol withdraw al. Your dehydration resolved with IV fluids, and your COVID infection has resolved with supportive care. You had mild alcohol withdrawal treated with librium taper and ativan as needed. Your last fever from COVID was on the afternoon of 10/24/22. I suspect that your fast heart rate upon presentation to [facility] was due to severe dehydration from vomiting as well as COVID infection. Your EKG at time of admission showed sinus tachycardia (normal heart rhythm but simply fast). We did not see an irregular heart rhythm such as SVT, atrial fibrillation, or another abnormal heart rhythm. At this time it is unlikely that you are contagious to others as you have been sick with COVID for about 8 days, your symptoms are essentially resolved, and you have had no fever in 2+ days. Although you likely don't need to isolate at home I would still suggest that you plan to spend the next few days resting and recuperating. Focus on good nutrition and hydration over the next few days as you fully recover. I have sent a prescription in to [facility] for zofran tablets for nausea, if needed. While awaiting to attend inpatient alcohol rehab please abstain from all forms of alcohol if at all possible. Finally, if you notice ongoing palpitations, racing heart, or if you confirm fast heart rates at home (especially 150 or higher) - please see your family doctor. Additional tests may be needed including a heart monitor that you would wear at home as well as a heart ultrasound (echocardiogram). Follow-up - see your family doctor as scheduled on 11/01/22 (if you have not shakila bassett started your inpatient alcohol rehab by then) Return to [facility] if - * you develop shortness of breath * you have chest pains * you have palpitations/fast heart rate/tachycardia * any other concerns Best wishes and continue to feel better, Dr Boggs Pending Studies at Discharge: No Stand-Alone Forms: My [facility], Smoking Cessation Medications and DC Order Prescriptions: New ondansetron 4 mg tablet,disintegrating 4 mg PO Q6H PRN (Reason: nausea and vomiting) Qty: 10 0RF Continued pantoprazole 40 mg Tablet,Delayed Release (Dr/Ec) 40 mg PO QAM Qty: 30 0RF cyanocobalamin (vitamin B-12) 500 mcg Tablet 1,000 mcg PO QAM Qty: 30 0RF folic acid 1 mg Tablet 1 mg PO QAM Qty: 30 0RF thiamine HCl (vitamin B1) 100 mg tablet 100 mg PO DAILY Qty: 30 0RF fexofenadine 180 mg tablet 180 mg PO QAM PRN (Reason: Other) Rx Instructions: Take as needed for seasonal allergies gabapentin 300 mg Capsule 300 mg PO TID PRN (Reason: Anxiety) Qty: 6 0RF multivitamin Tablet 1 tab PO DAILY Qty: 30 1RF Discharge Orders: Discharge Order (Routine); Ordered 10/26/22 Ordered By: Carlos Boggs Admission Data Admit Date/Time: 10/22/22 17:59 Attending Provider: Carlos Boggs Admit Provider: Meet Baird Primary Care Provider: Bri Cervantes Other Providers: Meet Baird Other Interventions: Discharge Summary Assessment (RN) Last Done: 10/26/22 20:57 Coding Level of Care Code HOSP INP/OBS DISCH 30 MIN/LESS Diagnoses Alcohol withdrawal F10.939 COVID-19 U07.1 High anion gap metabolic acidosis E87.29 Tobacco abuse Z72.0 Acid reflux K21.9 Major depressive disorder, recurrent episode F33.9 Major depression episode severity: unspecified Enlarged liver R16.0 Elevated liver enzymes R74.8 Sinus tachycardia R00.0
== END 2022-10-26 21:32 | disposition home or self-care (01) | DRG 178 ==
LOC: ED 12:32 → 2S 17:59 → SUATTDRO 17:59 → 2S 10-23 02:25 → 3W 10-26 02:22

== ENCOUNTER 2022-11-14 14:53 | Inpatient (IN) ==
--- NOTE | 2022-11-14 15:15 | Emergency Department Note ---
Impression & Plan Alcohol abuse, Depression with suicidal ideation, Alcoholic intoxication ED Provider Note NAME: MARYSOL RUTLEDGE AGE: 32 SEX: M : 1990 ARRIVES VIA: Ambulance INFORMANT: Patient, the police ED PROVIDER(S): Shayne Angulo DO CHIEF COMPLAINT: Suicidal ideation HPI: The patient is a 32-year-old male who presented to the emergency department with police. The patient has a long mental health history as well as a long alcohol abuse history. The patient has been seen in our facility for similar complaints. The patient himself states that he called his counselor in [place] who called crisis. Police were sent out for a wellness check and the patient was found to be obtunded and intoxicated. The patient states he was drinking a significant amount of alcohol today. He also took a handful of his clonazepam. He states he was hoping to . He denies having any other ingestions. He denies having any fever or cough. Patient states that otherwise he has been compliant with his outpatient medications ROS: See above HPI for pertinent positives & negatives. A total of 10 systems reviewed and were otherwise negative. PAST MEDICAL HISTORY: See Below PAST SURGICAL HISTORY: See Below FAMILY HISTORY: See Below SOCIAL HISTORY: See Below HOME MEDICATIONS: See Below ALLERGIES: See Below VITALS: See Below PHYSICAL EXAMINATION: GENERAL: The patient is obtunded. He does respond to verbal commands slowly but appropriately. EYES: The conjunctivae are clear. The pupils are round and reactive. EARS, NOSE, MOUTH AND THROAT: The nose is without any evidence of any deformity. NECK: The neck is nontender and supple. RESPIRATORY: Normal respiratory effort is noted there is no evidence of wheezing rhonchi or rales CARDIOVASCULAR: Regular rate and rhythm noted there no murmurs rubs or gallops normal S1 normal S2. GASTROINTESTINAL: The abdomen is soft. Abdomen is nontender. MUSCULOSKELETAL/EXTREMITIES: There is no evidence of gross deformity full range of motion is noted in the hips and shoulders. SKIN: There is no obvious evidence of any rash. There are no petechiae, pallor or cyanosis noted. NEUROLOGIC: Patient is awake and oriented x3 strength is symmetric patellar reflexes are 2+ bilaterally PSYCH: The patient's affect is very flat. He is obtunded and intoxicated. He is currently admitting to suicidal ideation. MEDICAL DECISION MAKING: The patient is a 32-year-old male who presented to the emergency department for an evaluation of mental health issues. The patient has a long history of alcohol abuse and suicidal ideation. He presented to the emergency department with police as a 302 warrant. The patient is not able to be medically cleared as he is very intoxicated at this time. He does have a long history of alcohol withdrawal and becomes very ill with this. This reason I discussed patient's condition with the on-call [facility] hospitalist. They have agreed to evaluate the patient in the emergency department for further management and disposition Triage Nursing notes reviewed. Prior medical records reviewed Vital Signs: reviewed and remarkable for no significant abnormalities Differential diagnosis: Mood disorder, infection, hypoglycemia, electrolyte abnormalities, cardiac sources, intracerebral event, toxicologic, trauma, neurologic, as well as other pathologies. ER treatment provided: See below Diagnostics interpreted by me: ECG: none Laboratory studies: As stated above and show below. Imaging studies: See below. Radiographic imaging was reviewed by myself Consultation(s): I discussed this case with Dr. 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 Alcoholic hepatitis Anxiety and depression Anxiety disorder, unspecified Chest pain COVID-19 Depression with suicidal ideation Depressive disorder Diplopia Dizziness Elevated liver enzymes BRITTNY (generalized anxiety disorder) BRITTNY (generalized anxiety disorder) Headache Homicidal ideation Hypokalemia Lab test negative for COVID-19 virus Left leg cellulitis No pertinent family history Pain, dental Post traumatic stress disorder (PTSD) Post traumatic stress disorder (PTSD) Self-harming behavior Suicidal behavior Suicidal ideation Suicidal ideations Tobacco abuse Transaminitis Surgical History No pertinent past surgical history Family History Mother Other No significant family history Denies family history of Ovarian cancer Prostate cancer Myocardial infarction Breast cancer Colorectal cancer Hypertension Social History Smoking Status: Unknown if ever smoked Tobacco Type: Cigarettes Cigarettes Per Day: 1 PPD; Second Hand Exposure: No; Hx Alcohol Use: Yes Alcohol type: hard liquor Hx Substance Use: No Preferred Language: [place] Communication Ability: Effective Visual Impairment: No Limitations Hearing Ability: Normal Space Operations Officer Required: No Beliefs That Will Affect Care: None marital status: Current Living Situation: Family Current Living Situation Comment: LIVES WITH BROTHER current occupational status: employed How many Children do You have: 1 Feels Safe at Home: Yes Childhood Exposure to Second-Hand Smoke: No Dental Care, Regularly: Yes Physical Activity Frequency: Daily Seatbelt Use: always Sunscreen Use: No Assistive Devices: None Allergies Allergies Allergy/AdvReac Type Severity Reaction Status Date / Time bupropion [From Wellbutrin] AdvReac Severe anxiety, Verified 11/08/22 11:55 confussion buspirone [From BuSpar] AdvReac Intermediate Shaking/john Verified 11/08/22 11:55 mor gluten AdvReac Intermediate Gastrointestinal Verified 11/08/22 11:55 Upset milk AdvReac Intermediate Gastrointestinal Verified 11/08/22 11:55 Upset gabapentin AdvReac Unknown Shakiness Verified 11/08/22 11:55 antihistamines AdvReac Intermediate "Just Uncoded 11/08/22 11:55 Don't Feel Right When I Take Them" Home Meds Home Medications Medication Instructions Recorded Confirmed clonazepam 0.5 mg tablet 0.5 mg 11/14/22 Previous Rx's Medication Instructions Recorded pantoprazole 40 mg tablet,delayed 40 mg PO QAM #30 tabs 09/24/22 release Results & Data (ED) Vital Signs Vital Signs - 24 hr 11/14/22 14:44 11/14/22 16:41 Temperature 36.8 C 36.6 C Temperature Source Oral Oral Pulse Rate 99 H Pulse Rate [Finger] 100 H Pulse Rhythm Regular Pulse Rhythm [Finger] Regular Pulse Strength [Finger] Normal Respiratory Rate 19 18 Respiratory Effort / Characteristics Non-Labored Spontaneous Non-Labored Respiratory Depth Normal Normal Respiratory Pattern Regular Regular Blood Pressure 148/89 H Blood Pressure [Right Arm] 118/90 Blood Pressure Mean 108 Blood Pressure Mean [Right Arm] 99 Blood Pressure Position Lying Pulse Oximetry 96 95 Oxygen Delivery Method Room Air Room Air Sepsis Recent Fever Within 48 Hours No Sepsis New/Unexplained Change in Mental Status No Sepsis Action Taken by Nursing No Action Required Home Medications Current Medication List: was personally reviewed by tn Laboratory Data Attestation: I reviewed the patient's lab results. 11/14/22 15:40 11/14/22 15:20 Lab Results 11/14/22 11/14/22 11/14/22 Range/Units 15:15 15:15 15:20 WBC (4.8-10.8) K/ul RBC (4.63-6.08) M/uL Hgb (14.0-18.0) g/dl Hct (40.1-51.0) % MCV (80.0-100.0) fL MCH (25.0-34.0) pg MCHC (32.0-36.0) g/dL RDW Std Deviation (36.4-46.3) fL RDW Coeff of Bryanna (11.5-14.5) % Plt Count (130-400) K/uL MPV (9.4-12.4) fL Immature Gran % (Auto) % Neut % (Auto) % Lymph % (Auto) % Florence % (Auto) % Eos % (Auto) % Baso % (Auto) % Neut # (Auto) (1.4-6.5) K/uL Lymph # (Auto) (1.2-3.4) K/uL Florence # (Auto) (0.24-0.82) K/uL Eos # (Auto) (0-0.50) K/uL Baso # (Auto) (0-0.2) K/uL Immature Gran # (Auto) (0.00-0.02) K/uL Sodium 144 (136-145) mmol/L Potassium 3.7 (3.5-5.1) mmol/L Chloride 104 (98-107) mmol/L Carbon Dioxide 27 (21-32) mmol/L Anion Gap 13 H (3-11) BUN 9 (6-23) mg/dl Creatinine 0.84 (0.6-1.4) mg/dl Est Cr Clr Drug Dosing 131.6 ml/min Est GFR ( Amer) 135.2 ml/min Est GFR (Non-Af Amer) 116.7 ml/min BUN/Creatinine Ratio 10.7 (10-20) Glucose 96 (70-99(Fasting)) mg/dl Calcium 9.6 (8.5-10.1) mg/dl Total Bilirubin 0.6 (0.2-1.0) mg/dl AST 44 H (13-39) U/L ALT 25 (7-52) U/L Alkaline Phosphatase 54 (34-104) U/L Total Protein 8.1 (6.0-8.3) gm/dl Albumin 4.8 (3.4-5.0) gm/dl Globulin 3.3 (2.5-4.0) gm/dl Albumin/Globulin Ratio 1.5 (0.9-2) TSH (0.300-4.500) uIu/ml Urine Color Yellow Urine Appearance Clear (Clear) Urine pH 7.5 (4.5-7.5) Ur Specific Evans 1.005 (1.000-1.030) Urine Protein Negative (Negative) Urine Glucose (UA) Negative (Negative) Urine Ketones Negative (Negative) Urine Blood Negative (Negative) Urine Nitrite Negative (Negative) Urine Bilirubin Negative (Negative) Urine Urobilinogen Negative (Negative) Ur Leukocyte Esterase Negative (Negative) Salicylates (3.0-30) mg/dl Urine Opiates Screen Neg (Neg) Ur Methadone, Qual Neg (Neg) Acetaminophen (10-30) ug/ml Urine Barbiturates Neg (Neg) Ur Phencyclidine (PCP) Neg (Neg) U Amphetamin/Meth Scrn Neg (Neg) MDMA (Ecstasy) Screen Neg (Neg) U Benzodiazepines Scrn Neg (Neg) Ur Cocaine Metabolite Neg (Neg) U Marijuana (THC) Screen Neg (Neg) Ethyl Alcohol mg/dL (<10.0) mg/dl SARS-CoV-2, RNA, NAAT (NEGATIVE) 11/14/22 11/14/22 11/14/22 Range/Units 15:20 15:20 15:20 WBC (4.8-10.8) K/ul RBC (4.63-6.08) M/uL Hgb (14.0-18.0) g/dl Hct (40.1-51.0) % MCV (80.0-100.0) fL MCH (25.0-34.0) pg MCHC (32.0-36.0) g/dL RDW Std Deviation (36.4-46.3) fL RDW Coeff of Bryanna (11.5-14.5) % Plt Count (130-400) K/uL MPV (9.4-12.4) fL Immature Gran % (Auto) % Neut % (Auto) % Lymph % (Auto) % Florence % (Auto) % Eos % (Auto) % Baso % (Auto) % Neut # (Auto) (1.4-6.5) K/uL Lymph # (Auto) (1.2-3.4) K/uL Florence # (Auto) (0.24-0.82) K/uL Eos # (Auto) (0-0.50) K/uL Baso # (Auto) (0-0.2) K/uL Immature Gran # (Auto) (0.00-0.02) K/uL Sodium (136-145) mmol/L Potassium (3.5-5.1) mmol/L Chloride (98-107) mmol/L Carbon Dioxide (21-32) mmol/L Anion Gap (3-11) BUN (6-23) mg/dl Creatinine (0.6-1.4) mg/dl Est Cr Clr Drug Dosing ml/min Est GFR ( Amer) ml/min Est GFR (Non-Af Amer) ml/min BUN/Creatinine Ratio (10-20) Glucose (70-99(Fasting)) mg/dl Calcium (8.5-10.1) mg/dl Total Bilirubin (0.2-1.0) mg/dl AST (13-39) U/L ALT (7-52) U/L Alkaline Phosphatase (34-104) U/L Total Protein (6.0-8.3) gm/dl Albumin (3.4-5.0) gm/dl Globulin (2.5-4.0) gm/dl Albumin/Globulin Ratio (0.9-2) TSH 0.656 (0.300-4.500) uIu/ml Urine Color Urine Appearance (Clear) Urine pH (4.5-7.5) Ur Specific Evans (1.000-1.030) Urine Protein (Negative) Urine Glucose (UA) (Negative) Urine Ketones (Negative) Urine Blood (Negative) Urine Nitrite (Negative) Urine Bilirubin (Negative) Urine Urobilinogen (Negative) Ur Leukocyte Esterase (Negative) Salicylates < 3.0 L (3.0-30) mg/dl Urine Opiates Screen (Neg) Ur Methadone, Qual (Neg) Acetaminophen < 3 L (10-30) ug/ml Urine Barbiturates (Neg) Ur Phencyclidine (PCP) (Neg) U Amphetamin/Meth Scrn (Neg) MDMA (Ecstasy) Screen (Neg) U Benzodiazepines Scrn (Neg) Ur Cocaine Metabolite (Neg) U Marijuana (THC) Screen (Neg) Ethyl Alcohol mg/dL 397.7 H (<10.0) mg/dl SARS-CoV-2, RNA, NAAT (NEGATIVE) 11/14/22 11/14/22 Range/Units 15:20 15:40 WBC 4.77 L (4.8-10.8) K/ul RBC 5.28 (4.63-6.08) M/uL Hgb 17.4 (14.0-18.0) g/dl Hct 48.6 (40.1-51.0) % MCV 92.0 (80.0-100.0) fL MCH 33.0 (25.0-34.0) pg MCHC 35.8 (32.0-36.0) g/dL RDW Std Deviation 41.6 (36.4-46.3) fL RDW Coeff of Bryanna 12.2 (11.5-14.5) % Plt Count 303 (130-400) K/uL MPV 10.1 (9.4-12.4) fL Immature Gran % (Auto) 0.2 % Neut % (Auto) 54.7 % Lymph % (Auto) 37.5 % Florence % (Auto) 5.7 % Eos % (Auto) 0.6 % Baso % (Auto) 1.3 % Neut # (Auto) 2.61 (1.4-6.5) K/uL Lymph # (Auto) 1.79 (1.2-3.4) K/uL Florence # (Auto) 0.27 (0.24-0.82) K/uL Eos # (Auto) 0.03 (0-0.50) K/uL Baso # (Auto) 0.06 (0-0.2) K/uL Immature Gran # (Auto) 0.01 (0.00-0.02) K/uL Sodium (136-145) mmol/L Potassium (3.5-5.1) mmol/L Chloride (98-107) mmol/L Carbon Dioxide (21-32) mmol/L Anion Gap (3-11) BUN (6-23) mg/dl Creatinine (0.6-1.4) mg/dl Est Cr Clr Drug Dosing ml/min Est GFR ( Amer) ml/min Est GFR (Non-Af Amer) ml/min BUN/Creatinine Ratio (10-20) Glucose (70-99(Fasting)) mg/dl Calcium (8.5-10.1) mg/dl Total Bilirubin (0.2-1.0) mg/dl AST (13-39) U/L ALT (7-52) U/L Alkaline Phosphatase (34-104) U/L Total Protein (6.0-8.3) gm/dl Albumin (3.4-5.0) gm/dl Globulin (2.5-4.0) gm/dl Albumin/Globulin Ratio (0.9-2) TSH (0.300-4.500) uIu/ml Urine Color Urine Appearance (Clear) Urine pH (4.5-7.5) Ur Specific Evans (1.000-1.030) Urine Protein (Negative) Urine Glucose (UA) (Negative) Urine Ketones (Negative) Urine Blood (Negative) Urine Nitrite (Negative) Urine Bilirubin (Negative) Urine Urobilinogen (Negative) Ur Leukocyte Esterase (Negative) Salicylates (3.0-30) mg/dl Urine Opiates Screen (Neg) Ur Methadone, Qual (Neg) Acetaminophen (10-30) ug/ml Urine Barbiturates (Neg) Ur Phencyclidine (PCP) (Neg) U Amphetamin/Meth Scrn (Neg) MDMA (Ecstasy) Screen (Neg) U Benzodiazepines Scrn (Neg) Ur Cocaine Metabolite (Neg) U Marijuana (THC) Screen (Neg) Ethyl Alcohol mg/dL (<10.0) mg/dl SARS-CoV-2, RNA, NAAT NEGATIVE (NEGATIVE) Discharge Plan Visit Data Chief Complaint: Mental Health Evaluation ED Provider: Shayne Angulo Discharge Problem: Alcohol abuse, Depression with suicidal ideation, Alcoholic intoxication Patient Disposition: Being Evaluated by Hospitalist Forms Stand Alone Forms: My [facility], Suicide Prevention Resources Prescriptions Prescriptions: No Action pantoprazole 40 mg Tablet,Delayed Release (Dr/Ec) 40 mg PO QAM Qty: 30 0RF clonazepam 0.5 mg tablet 0.5 mg Referrals Referrals: Bri Cervantes MD [Primary Care Provider] -
[2022-11-14 15:42] LABS: Appearance Urine Clear (Clear); Bilirubin Urine Negative (Negative); Blood Urine Negative (Negative); Color Urine Yellow; Glucose Urine UA Negative (Negative); Ketones Urine Negative (Negative); Leukocyte Esterase Urine Negative (Negative); Nitrite Urine Negative (Negative); Protein Urine Negative (Negative); Specific Gravity Urine 1.005 (1.000-1.030); Urobilinogen Urine Negative (Negative); pH Urine 7.5 (4.5-7.5)
[2022-11-14 16:02] LABS: Basophils # (auto) 0.06 K/uL (0-0.2); Basophils % (auto) 1.3 %; Eosinophils # (auto) 0.03 K/uL (0-0.50); Eosinophils % (auto) 0.6 %; Hematocrit (blood only) 48.6 % (40.1-51.0); Hemoglobin 17.4 g/dl (14.0-18.0); Immature Granulocytes # (auto) 0.01 K/uL (0.00-0.02); Immature Granulocytes % (auto) 0.2 %; Lymphocytes # (auto) 1.79 K/uL (1.2-3.4); Lymphocytes % (auto) 37.5 %; Mean Corpuscular Hgb Conc 35.8 g/dL (32.0-36.0); Mean Platelet Volume 10.1 fL (9.4-12.4); Monocytes # (auto) 0.27 K/uL (0.24-0.82); Monocytes % (auto) 5.7 %; Neutrophils # (auto) 2.61 K/uL (1.4-6.5); Neutrophils % (auto) 54.7 %; Platelet Count 303 K/uL (130-400); RDW Coefficient of Variation 12.2 % (11.5-14.5); RDW Standard Deviation 41.6 fL (36.4-46.3); Red Blood Count 5.28 M/uL (4.63-6.08); White Blood Count 4.77 K/ul (4.8-10.8)
[2022-11-14 16:19] LABS: Albumin Globulin Ratio 1.5 (0.9-2); Albumin Level 4.8 gm/dl (3.4-5.0); BUN Creatinine Ratio 10.7 (10-20); Bilirubin,Total 0.6 mg/dl (0.2-1.0); Calcium 9.6 mg/dl (8.5-10.1); Creatinine Clr Calc Pharmacy 131.6 ml/min; Est GFR (African American) 135.2 ml/min; Est GFR (Non-African American) 116.7 ml/min; Globulin 3.3 gm/dl (2.5-4.0); Potassium 3.7 mmol/L (3.5-5.1); Total Protein 8.1 gm/dl (6.0-8.3)
[2022-11-14 16:23] LABS: Acetaminophen < 3 ug/ml (10-30); Salicylate < 3.0 mg/dl (3.0-30)
[2022-11-14 16:38] LABS: Amphetamines+Metham, Urine Neg (Neg); Barbiturates, Urine Neg (Neg); Benzodiazepine, Urine Neg (Neg); Cocaine, Urine Neg (Neg); MDMA (Ecstacy), Urine Neg (Neg); Methadone, Urine Neg (Neg); Opiate, Urine Neg (Neg); Phencyclidine, Urine Neg (Neg)
--- NOTE | 2022-11-14 17:29 | History & Physical Report ---
Date of Service November 14, 2022 Assessment & Plan (1) Depression with suicidal ideation: Plan: -Admit to the PCU -Patient is currently afebrile, hemodynamically stable, and stable on RA -Patient does not suicidal ideations but will not discuss a plan at this time -There was initial concern that he took a handful of benzodiazepines as reported by ED staff but that patient's urine drug screen was completely negative, including benzodiazepines -When discussed further, the patient denies intentionally overdosing on an medications today -Suicide precautions ordered, monitor on tele/pulse oximetry -Psychiatry consult placed (2) Alcohol abuse: Plan: -Patient's alcohol level at the time of the admission is 397 -He reports drinking 30 shots of vodka daily for the past week -Has a long history of significant alcohol withdrawal -Will stat AWSS active withdrawal at this time as he often starts to withdrawal prior to having a negative alcohol level. -Will start the patient on the high dose Librium taper now -Will give the patient 1 banana bag and then all him to eat a regular diet -Monitor on tele and pulse oximetry -AM CBC and CMP (3) Sinus tachycardia: Plan: -Patient has consistently presented in sinus tachycardia on his recent admissions -Currently tachycardic in the low 100's at the time of the exam, patient is stable and asymptomatic -Likely due to a combination of anxiety and dehydration -Will give a banana bag now and obtain an ECG -Continue to monitor on tele -Can give additional IV fluids if needed Plan The patient was discussed with Dr. Rangel at the time of the admission History of Present Illness Chief Complaint: Suicidal ideations Primary Care Provider: Bri Cervantes MD Chun is a 32 year old male with a PMH significant for alcohol abuse with multiple recent admissions for alcohol withdrawal, depression with suicidal ideations, and anxiety who presented to the [facility] ED on 11/14/22 with a chief complaint of suicidal ideations and benzodiazepine overdose. In the ED the patient was found to be afebrile, hemodynamically stable, tachycardic in the low 100's, and stable on RA. Labs were remarkable for a WBC of 4.77, stable Hgb and platelets, stable renal function and electrolytes, AG of 13, AST of 44, TSH of 0.656, clean UA, Urine drug screen negative including negative for benzodiazepines, alcohol level of 397, and covid negative. At the time of the exam the patient was sitting on the side of the bed and appears upset. He apologized multiple times stating that he started drinking again and is very embarrassed. I expressed to him that he should not apologize, that alcohol abuse is a serious disease and we are here to help him. He states that he started drinking again approximately one week ago. He has been drinking approximately 30 shots of vodka daily, his last shot of vodka was approximately one hour prior to coming to the ED. When asked why he started drinking again he paused for a long time and then stated that he did not wish to speak about that at the present time. I explained that the ED staff told us that he took a handful of benzodiazepines and that I needed to confirm if he took any pills. I explained that his urine tox screen was negative, including benzodiazepines, he confirmed to me that he did not actually take pills of any kind to overdose. I then asked he if he is having thoughts of suicide or homicidal ideations. He is not having homicidal ideations but is having suicidal ideations. When asked about a plan to hurt himself he stated that he did not want to discuss that until he was sober. He denies any other complaints at this time and does want to get help with his drinking. Please refer to Dr. Rangel's attestation for any changes to the treatment plan Allergies Allergy/AdvReac Type Severity Reaction Status Date / Time bupropion [From Wellbutrin] AdvReac Severe anxiety, Verified 11/08/22 11:55 confussion buspirone [From BuSpar] AdvReac Intermediate Shaking/john Verified 11/08/22 11:55 mor gluten AdvReac Intermediate Gastrointestinal Verified 11/08/22 11:55 Upset milk AdvReac Intermediate Gastrointestinal Verified 11/08/22 11:55 Upset gabapentin AdvReac Unknown Shakiness Verified 11/08/22 11:55 antihistamines AdvReac Intermediate "Just Uncoded 11/08/22 11:55 Don't Feel Right When I Take Them" Home Medications Medication Instructions Recorded Confirmed Type pantoprazole 40 mg tablet,delayed 40 mg PO QAM #30 tabs 09/24/22 11/14/22 Rx release clonazepam 0.5 mg tablet 0.5 mg 11/14/22 History Past Med/Surg History Medical History Abdominal pain Acid reflux Acute sinusitis Alcohol abuse Alcohol abuse with alcohol-induced anxiety disorder Alcohol intoxication Alcohol use disorder Alcohol use disorder, severe, dependence 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 Alcoholic hepatitis Anxiety and depression Anxiety disorder, unspecified Chest pain COVID-19 Depression with suicidal ideation Depressive disorder Diplopia Dizziness Elevated liver enzymes BRITTNY (generalized anxiety disorder) BRITTNY (generalized anxiety disorder) Headache Homicidal ideation Hypokalemia Lab test negative for COVID-19 virus Left leg cellulitis No pertinent family history Pain, dental Post traumatic stress disorder (PTSD) Post traumatic stress disorder (PTSD) Self-harming behavior Suicidal behavior Suicidal ideation Suicidal ideations Tobacco abuse Transaminitis Surgical History No pertinent past surgical history Family History Mother Other No significant family history Denies family history of Ovarian cancer Prostate cancer Myocardial infarction Breast cancer Colorectal cancer Hypertension Social History Smoking Status: Unknown if ever smoked Tobacco Type: Cigarettes Cigarettes Per Day: 1 PPD; Second Hand Exposure: No; Hx Alcohol Use: Yes Alcohol type: hard liquor Hx Substance Use: No Preferred Language: Albanian Communication Ability: Effective Visual Impairment: No Limitations Hearing Ability: Normal [employer] Required: No Beliefs That Will Affect Care: None marital status: Current Living Situation: Family Current Living Situation Comment: LIVES WITH BROTHER current occupational status: employed How many Children do You have: 1 Feels Safe at Home: Yes Childhood Exposure to Second-Hand Smoke: No Dental Care, Regularly: Yes Physical Activity Frequency: Daily Seatbelt Use: always Sunscreen Use: No Assistive Devices: None Review of Systems Review of Systems: Denies current fever, headache, changes in vision, hearing, taste, and smell, chest pain, SOB, cough, abdominal pain, nausea, vomiting, diarrhea, hematemesis, melena, dysuria, hematuria, and recent falls. All systems have been reviewed and are otherwise negative. Physical Exam Physical Exam: Physical Exam: General: In moderate distress, stated age, malnourished, poor hygiene HEENT: Normocephalic, atraumatic, no scleral icterus, pupils around round, symmetrical, and reactive to light, moist mucus membranes, trachea midline, no thyromegaly Chest/Pulm: No respiratory distress, symmetrical chest expansion, clear breath sounds throughout Cardiac tachycardic rate, regular rhythm, no murmurs noted Abdomen: Negative for ascites and bruising, normoactive bowel sounds, soft, non-tender to palpation throughout Musculoskeletal: Symmetrical and without signs of acute trauma, upper and lower extremities with full ROM, no atrophy, spasticity, or flaccidity Extremities: Radial, dorsalis pedis, and posterior tibial pulses are intact and symmetrical, no edema noted in the BL LE's Skin: Warm, dry, no rashes , lesions, or scars noted Neuro: Alert and oriented to person, place, month, year, and president, no focal defects, CN II-XII tested and intact, finger to nose test negative, tremor is noted Psych: In moderate distress and anxious but cooperative during the exam Results & Data Results & Data ([facility]) Vital Signs (Past 12 Hours) Vital Signs Temp Pulse Pulse Resp BP BP Pulse Ox 11/14/22 16:41 36.6 C 100 H 18 118/90 95 11/14/22 14:44 36.8 C 99 H 19 148/89 H 96 O2 Del Method 11/14/22 16:41 Room Air 11/14/22 14:44 Room Air Laboratory Results Abnormal lab results 11/14/22 11/14/22 11/14/22 Range/Units 15:20 15:20 15:20 WBC (4.8-10.8) K/ul Anion Gap 13 H (3-11) AST 44 H (13-39) U/L Salicylates < 3.0 L (3.0-30) mg/dl Acetaminophen < 3 L (10-30) ug/ml Ethyl Alcohol mg/dL 397.7 H (<10.0) mg/dl 11/14/22 Range/Units 15:40 WBC 4.77 L (4.8-10.8) K/ul Anion Gap (3-11) AST (13-39) U/L Salicylates (3.0-30) mg/dl Acetaminophen (10-30) ug/ml Ethyl Alcohol mg/dL (<10.0) mg/dl ECG Additional Comments: Will obtain at the time of the admission Code Status & VTE Plan Code Status Ful code VTE Prophylaxis Plan VTE Prophylaxis will be ordered: Yes Supervising Physician Co-Signing Physician Notes Patient seen and examined, chart reviewed, case discussed with Amadou Solo PA-C and I agree with the assessment and plan as above except as otherwise noted Labs and images reviewed Patient is a 32-year-old male with a history of severe alcohol abuse and alcohol hepatitis who presents with depression, suicidal ideation, and alcohol intoxication with concern for withdrawal. Has been drinking up to 30 shots of liquor (vodka) daily. Patient initially reported to ER staff that he had taken a handful of benzodiazepines, he discussed with MITA and also personally confirmed with patient that he had not taken any pills or medications prior to arrival in ER. U tox was negative for benzos as noted. Patient endorsed suicidal ideation. At bedside assessment he awakens easily, but has increased speech latency but otherwise answers questions appropriately. Denies chest pain, chest pressure, lightheadedness, dizziness, tremulousness, sweating. Is aware that he is admitted on 302. Thinks he may have had a seizure many years ago, denies recent seizure or home antiepileptics. Pulse is regular, tachycardic, breathing is unlabored. Skin is warm and dry. Agree with admission for alcohol withdrawal, will treat with Librium active protocol, 80 process as needed, high-dose thiamine protocol. Once medically stable from a alcohol withdrawal standpoint can progress to care with U who are following. Agree with recommendations as noted by Amadou Solo PA-C above. PG Care Time/CCT Total # of Minutes Spent Total Time Spent with Patient: Total time spent is greater than 50% in coordination of care (as documented) at patient's floor/unit and/or counseling patient: Coding [place] [address] INT INP/OBS CARE 3/75MIN Patient Type Established Medical Decision Making High Complexity Diagnoses Depression with suicidal ideation F32.A; R45.851 Alcohol abuse F10.10 Sinus tachycardia R00.0
[2022-11-14] MEDS ORDERED: Ativan PO Alcohol Withdrawal--Active Protocol PO PRN (17:50)
[2022-11-14] MEDS ORDERED: LORazepam 1 MG TAB PO PRN (17:50)
[2022-11-14] MEDS ORDERED: chlordiazePOXIDE ALCOHOL WITHDRAWL 50MG PO STA (17:50)
[2022-11-14] MEDS ORDERED: MULTI-VITAMIN INFUSION 10 ML, THIAMINE HCL 100 MG, FOLIC ACID 1 MG in SODIUM CHLORIDE 0... IV ONE (18:15)
[2022-11-14] MEDS: chlordiazePOXIDE HCl 25 MG CAP PO SCH (18:44)
[2022-11-14] MEDS: LORazepam 1 MG TAB PO PRN ×2 (20:19→22:20)
[2022-11-15] MEDS: chlordiazePOXIDE HCl 25 MG CAP PO SCH ×4 (00:05→17:43)
[2022-11-15 06:46] LABS: Hematocrit (blood only) 39.3 % (40.1-51.0); Hemoglobin 13.8 g/dl (14.0-18.0); Mean Corpuscular Hemoglobin 32.5 pg (25.0-34.0); Mean Corpuscular Hgb Conc 35.1 g/dL (32.0-36.0); Mean Corpuscular Volume 92.5 fL (80.0-100.0); RDW Coefficient of Variation 12.2 % (11.5-14.5); RDW Standard Deviation 41.8 fL (36.4-46.3); Red Blood Count 4.25 M/uL (4.63-6.08); White Blood Count 4.82 K/ul (4.8-10.8)
[2022-11-15 06:47] LABS: Mean Platelet Volume 10.2 fL (9.4-12.4); Platelet Count 226 K/uL (130-400)
[2022-11-15 06:57] LABS: Albumin Globulin Ratio 1.6 (0.9-2); Albumin Level 3.8 gm/dl (3.4-5.0); BUN Creatinine Ratio 13.3 (10-20); Bilirubin,Total 0.9 mg/dl (0.2-1.0); Calcium 8.6 mg/dl (8.5-10.1); Creatinine Clr Calc Pharmacy 156.6 ml/min; Est GFR (African American) 141.7 ml/min; Est GFR (Non-African American) 122.2 ml/min; Globulin 2.4 gm/dl (2.5-4.0); Magnesium 1.6 mg/dl (1.7-2.4); Potassium 3.7 mmol/L (3.5-5.1); Total Protein 6.2 gm/dl (6.0-8.3)
[2022-11-15] MEDS: LORazepam 1 MG TAB PO PRN ×2 (07:42→16:51)
[2022-11-15] MEDS ORDERED: MAGNESIUM SULFATE / D5W 1 GM/100 ML BAG IV ONE (08:01)
[2022-11-15] MEDS: PANTOprazole 40 MG TAB PO SCH (11:02)
[2022-11-15] MEDS: FOLIC ACID 1 MG TAB PO SCH (11:03)
[2022-11-15] MEDS: THIAMINE HCL 100 MG TAB PO SCH (11:03)
--- NOTE | 2022-11-15 11:23 | Electrocardiogram Report ---
Test Reason : Blood Pressure : / mmHG Vent. Rate : 083 BPM Atrial Rate : 083 BPM P-R Int : 158 ms QRS Dur : 100 ms QT Int : 364 ms P-R-T Axes : 042 071 054 degrees QTc Int : 427 ms Normal sinus rhythm Normal ECG When compared with ECG of 22-OCT-2022 13:01, No significant change was found Confirmed by Yung Gamez ([id number]) on 11/15/2022 11:23:16 AM Referred By: REFERRED SELF Confirmed By:Gordon Gamez
[2022-11-15] MEDS ORDERED: ONDANSETRON INJ 2 MG/ML 2 ML VIAL ONE (12:16)
--- NOTE | 2022-11-15 12:34 | Hospitalist Progress Note ---
Date of Service November 15, 2022 Assessment & Plan (1) Depression with suicidal ideation: Plan: - Patient is currently afebrile, hemodynamically stable, and stable on RA - Patient does not endorse suicidal ideations at this time - There was initial concern that he took a handful of benzodiazepines as reported by ED staff but that patient's urine drug screen was completely negative, including benzodiazepines & he denies this - Suicide precautions ordered, continue to monitor on tele - Psychiatry consult placed, appreciate assistance (2) Alcohol abuse: Plan: - Patient's alcohol level at the time of the admission is 397 - He reports drinking 30 shots of vodka daily for the past week - Has a long history of significant alcohol withdrawal - Continue AWSS - Continue on high dose Librium taper now - Given 1 banana bag and then all him to eat a regular diet - Monitor on tele and pulse oximetry - AM CBC and CMP (3) Sinus tachycardia: Plan: - Patient has consistently presented in sinus tachycardia on his recent admissio ns - Likely due to EtOH withdrawal - Given a banana bag, EKG NSR rate of 83 - Currently in NSR with HR 80-90s Plan Await rec's from psych. Added Zofran for nausea. Otherwise, plan as outlined above. Above plan of care to be d/w Dr. Baird. Admission and Anticipated Discharge Date Admission Date: November 14, 2022 Subjective Patient was seen on daily rounds this morning. He is resting in bed, denies suicidal ideation or intentionally overdosing on medications in attempt to cause self harm. He states that he does want to stop drinking alcohol, has been to rehab but despite that continues to relapse. Currently reports feeling shaky and nauseated. No other complaints at this time. Notes that he was due to be started on Effexor by his psychiatrist but has not started that medication yet. Review of Systems Review of Systems: All systems reviewed and are unremarkable except as noted in HPI and below. Denies fever, chills, fatigue, headache, nasal congestion, sore throat, cough, chest pain, shortness of breath, palpitations, orthopnea, PND, abdominal pain, v/d, constipation, dysuria, hematuria, frequency, back pain, joint pain or swelling, easy bruising or bleeding, skin lesions or rashes. Physical Exam Physical Exam: GENERAL: 32 yo Well-developed, well-nourished WM. NAD. LUNGS: Clear to auscultation bilaterally. No W/R/R. CARDIOVASCULAR: Regular rate and rhythm. No M/G/R. No JVD. ABDOMEN: Soft, non-tender and non-distended. BS normoactive x 4 quad. EXTREMITIES: No edema. Non-tender. Peripheral pulses +2/4. NEUROLOGIC: A&O x3. Nonfocal PSYCHIATRIC: Cooperative. Appropriate mood and affect. SKIN: Warm, dry, intact. No rashes or lesions. Results & Data Results & Data ([facility]) Vital Signs (Past 12 Hours) Vital Signs Temp Pulse Pulse Resp BP Pulse Ox O2 Del Method 11/15/22 11:05 37 C 79 18 135/77 96 Room Air 11/15/22 08:12 76 11/15/22 07:37 36.5 C 107 H 20 135/67 97 Room Air 11/15/22 03:15 37.1 C 65 18 105/66 95 Room Air 11/15/22 00:10 37.0 C 86 18 112/73 96 Room Air Laboratory Results 11/15/22 05:49 11/15/22 05:49 PG Care Time/CCT Total # of Minutes Spent Total Time Spent with Patient: Total time spent is greater than 50% in coordination of care (as documented) at patient's floor/unit and/or counseling patient: Coding Level of Care Code 54513 SUB INP/OBS CARE 2/35MIN Diagnoses Depression with suicidal ideation F32.A; R45.851 Alcohol abuse F10.10 Sinus tachycardia R00.0
--- NOTE | 2022-11-15 15:09 | Communication Note ---
Date of Service: November 15, 2022 Initial consult reviewed. Patient well known to me from repeated hospitalizations for suicidal statements and or gestures during periods of intoxication. He had reported taking Klonopin while intoxicated as a gesture and found to have highly elevated COSME, admit again for management of withdrawal/detox. Of note PDMP shows that last rx of Klonopin 0.5 mg #17 dispensed on 10/[address] Cuellar at [facility] so doubt significant OD complicating his presentation. Reportedly was prescribed Effexor XR at [facility] since last contact but reports not taking it due to concerns about side effects. The patient is not able to leave the hospital AMA as there is an active 302 warrant. They should remain on safety precautions with 1-on-1 pending ability to make a determination re: need for involuntary psychiatric treatment. This determination will need to be made within two hours of medical clearance or the warrant will on 11/19/22 at 1453 (box b warrant by police at time of arrival to ED). At this time, the 302 is unable to be completed becausehe remains under the influence of significant amount of benzodiazepines for ETOH detox and is historically confused at that time. The liaison has met with patient and he is able to verbalize willing to remain hospitalized for medical treatment at this time. The patient will be reassessed by nursing every hour and MD will be notified when patient is closer to medical clearance.
[2022-11-15] MEDS: ACETAMINOPHEN 325 MG TAB PO PRN (17:44)
[2022-11-15] MEDS: NICOTINE 14 MG/24 HR PATCH TD SCH (18:06)
[2022-11-15] MEDS: ONDANSETRON INJ 2 MG/ML 2 ML VIAL IV PRN (19:31)
[2022-11-15] MEDS ORDERED: ALUMINUM/MAGNESIUM SUSP 30 ML UDC PO STA (22:25)
[2022-11-16] MEDS: LORazepam 1 MG TAB PO PRN ×4 (00:21→23:16)
[2022-11-16] MEDS: ACETAMINOPHEN 325 MG TAB PO PRN ×3 (00:22→20:42)
[2022-11-16] MEDS ORDERED: PROCHLORPERAZINE 5 MG in SYRINGE 4 ML IV ONE (00:41)
[2022-11-16] MEDS: chlordiazePOXIDE HCl 25 MG CAP PO SCH ×4 (01:52→17:12)
[2022-11-16 06:39] LABS: Hematocrit (blood only) 42.7 % (42.0-52.0); Hemoglobin 14.9 g/dl (14.0-18.0); Mean Corpuscular Hemoglobin 32.7 pg (25.0-34.0); Mean Corpuscular Hgb Conc 34.9 g/dL (32.0-36.0); Mean Corpuscular Volume 93.8 fL (80.0-100.0); Mean Platelet Volume 10.4 fL (9.4-12.4); Platelet Count 204 K/uL (130-400); RDW Coefficient of Variation 11.9 % (11.5-14.5); RDW Standard Deviation 41.9 fL (36.4-46.3); Red Blood Count 4.55 M/uL (4.70-6.10); White Blood Count 5.03 K/ul (4.8-10.8)
[2022-11-16 07:02] LABS: Albumin Globulin Ratio 1.6 (0.9-2); Albumin Level 4.2 gm/dl (3.4-5.0); Bilirubin,Total 1.4 mg/dl (0.2-1.0); Calcium 9.5 mg/dl (8.5-10.1); Creatinine Clr Calc Pharmacy 150.6 ml/min; Est GFR (African American) 139.4 ml/min; Est GFR (Non-African American) 120.3 ml/min; Globulin 2.7 gm/dl (2.5-4.0); Magnesium 2.1 mg/dl (1.7-2.4); Potassium 3.8 mmol/L (3.5-5.1); Total Protein 6.9 gm/dl (6.0-8.3)
[2022-11-16] MEDS: FOLIC ACID 1 MG TAB PO SCH (08:35)
[2022-11-16] MEDS: PANTOprazole 40 MG TAB PO SCH (08:35)
[2022-11-16] MEDS: THIAMINE HCL 100 MG TAB PO SCH (08:36)
[2022-11-16] MEDS: ONDANSETRON INJ 2 MG/ML 2 ML VIAL IV PRN ×2 (08:38→20:42)
[2022-11-16] MEDS: NICOTINE 14 MG/24 HR PATCH TD SCH (09:53)
--- NOTE | 2022-11-16 11:54 | Hospitalist Progress Note ---
Date of Service November 16, 2022 Assessment & Plan (1) Depression with suicidal ideation: Plan: - Patient is currently afebrile, hemodynamically stable, and stable on RA - Patient does not endorse suicidal ideations at this time - There was initial concern that he took a handful of benzodiazepines as reported by ED staff but that patient's urine drug screen was completely negative, including benzodiazepines & he denies this - Suicide precautions ordered, continue to monitor on tele - Psychiatry consult placed, appreciate assistance (2) Alcohol abuse: Plan: - Patient's alcohol level at the time of the admission is 397 - He reports drinking 30 shots of vodka daily for the past week - Has a long history of significant alcohol withdrawal - Continue AWSS - Continue on high dose Librium taper now - Given 1 banana bag and then all him to eat a regular diet - Monitor on tele and pulse oximetry - Heart rate appears controlled, patient though with hallucinations and tremors. will monitor for another 24 hours. If he continues to improve will consider medically clearing on 11/17 LAter in the day, patient reuqired a higher dose of librium. Will monitor, concern he may go to DTs. (3) Sinus tachycardia: Plan: - Patient has consistently presented in sinus tachycardia on his recent admissions - Likely due to EtOH withdrawal - Given a banana bag, EKG NSR rate of 83 - Currently in NSR with HR 80-90s Plan Await rec's from psych. Added Zofran for nausea. Otherwise, plan as outlined above. Above plan of care to be d/w Dr. Baird. Admission and Anticipated Discharge Date Admission Date: November 14, 2022 Subjective Patient reports feeling fine. When i walked into room, he was found to be sleeping. He reports he does see creatures when he closes his eyes, but they aren't as frequent today. He states his tremors are better controlled. Review of Systems Review of Systems: All systems reviewed & are unremarkable except as noted in HPI & below Physical Exam Physical Exam: GENERAL: 32 yo Well-developed, well-nourished WM. NAD. LUNGS: Clear to auscultation bilaterally. No W/R/R. CARDIOVASCULAR: Regular rate and rhythm. No M/G/R. No JVD. ABDOMEN: Soft, non-tender and non-distended. BS normoactive x 4 quad. EXTREMITIES: No edema. Non-tender. Peripheral pulses +2/4. NEUROLOGIC: A&O x3. Nonfocal PSYCHIATRIC: Cooperative. Appropriate mood and affect. SKIN: Warm, dry, intact. No rashes or lesions. Results & Data Results & Data ([facility]) Vital Signs (Past 12 Hours) Vital Signs Temp Pulse Pulse Resp BP Pulse Ox O2 Del Method 11/16/22 11:50 89 18 113/75 97 Room Air 11/16/22 11:48 52 L 11/16/22 08:04 36.5 C 68 16 113/73 98 Room Air 11/16/22 03:46 36.4 C L 60 18 111/71 96 Room Air PG Care Time/CCT Total # of Minutes Spent Total Time Spent with Patient: Total time spent is greater than 50% in coordination of care (as documented) at patient's floor/unit and/or counseling patient: Coding Level of Care Code 69698 SUB INP/OBS CARE 3/50MIN Diagnoses Depression with suicidal ideation F32.A; R45.851 Alcohol abuse F10.10 Sinus tachycardia R00.0 Time Spent (min) 50
--- NOTE | 2022-11-16 15:34 | Psychiatric Consultation ---
Date of Consultation November 16, 2022 Impression / Recommendations Impression 32 yo male with a hx of PTSD, recurrent stays for Etoh intoxication/detox with likely alcohol induced mood disorder (depression). He becomes disinhibited by alcohol and threatens SI and then denies when no longer intoxicated. He is currently under the influence of benzodiazepines for alcohol detox, exhibiting tremor and tachy. Case discussed with Dr. Gregorio and anticipated medical clearance is tomorrow. (1) Alcohol use disorder: (2) Depression, unspecified: Active/Remission status: currently active Depression Type: major depressive disorder Major depression episode severity: moderate Major depression recurrence: recurrent Qualified Code(s): F33.1 - Major depressive disorder, recurrent, moderate Plan The patient consistently denies SI and any ingestion of Klonopin was likely misu se. He states he is amenable to inpatient treatment on 3S to start Effexor and Naltrexone to his case assistant and reinforced that a dual dx facility or direct to rehab if able is more appropriate and that medications will be at discretion of prescriber. Liaison updated as Dr. Wiley is assuming clinical responsibility of the service and ultimately will make determination whether or 302 can be dispositioned within 2 hours of medical clearance. Patient remains on 1 on 1 as on a 302 warrant. See 302 comment in HPI re: process. Psych History Identifying Data Chun is a 32 yo male with a hx of severe alcohol dependence, recurrent hospitalizations for suicidal threats in the context of high COSME, readmit medically on 11/14 for alcohol detox. Chief Complaint patient was seen/is meeting with his Michael CM at bedside History of Present Illness Patient brought to ED by [facility] police having called crisis, expressing SI and having taken "a handful" of Klonopin with 30+ shots of vodka. Today the patient remains tremulous/on librium and experiencing subjective anxiety that he seems to not recognize as withdrawal. His CM was speaking with him about medication options and he would like to start Effexor XR as planned at his appointment at [facility] from earlier in the week. As per initial chart review on 11/15/22: Initial consult reviewed. Patient well known to me from repeated hospitalizations for suicidal statements and or gestures during periods of intoxication. He had reported taking Klonopin while intoxicated as a gesture and found to have highly elevated COSME, admit again for management of withdrawal/detox. Of note PDMP shows that last rx of Klonopin 0.5 mg #17 dispensed on 10/[address] Cuellar at [facility] so doubt significant OD complicating his presentation. Reportedly was prescribed Effexor XR at [facility] since last contact but reports not taking it due to concerns about side effects. The patient is not able to leave the hospital AMA as there is an active 302 warrant. They should remain on safety precautions with 1-on-1 pending ability to make a determination re: need for involuntary psychiatric treatment. This determination will need to be made within two hours of medical clearance or the warrant will on 11/19/22 at 1453 (box b warrant by police at time of arrival to ED). At this time, the 302 is unable to be completed becausehe remains under the influence of significant amount of benzodiazepines for ETOH detox and is historically confused at that time. The liaison has met with patient and he is able to verbalize willing to remain hospitalized for medical treatment at this time. The patient will be reassessed by nursing every hour and MD will be notified when patient is closer to medical clearance. Past Psychiatric History Do You Have Access To A Gun?: No (were confiscated by police/past 302) Additional Notes: most recent inpatient stay at [facility] then declined to step down to rehab. review per Dr. Mackey 10/12: Current Psychiatric Diagnosis: MDD, BRITTNY, PTSD Previous Psych Admissions: multiple: Reviewed presentations to the hospital since 2021: 11/23/2021: medical admission for alcohol withdrawal 12/03/2021: ED presentation for alcohol intoxication 01/02/2022: medical admission to ICU for alcohol withdrawal 01/30/2022: ED presentation for alcohol intoxication 02/24/2022: ED presentation for alcohol intoxication and head trauma from drinking 03/07/22: ED presentation for alcohol intoxication and head trauma from drinking 04/09/2022: medical admission for alcohol withdrawal 06/07/2022: ED presentation for alcohol intoxication 06/19/2022: ED presentation for alcohol intoxication 06/21/2022 - 06/24/2022: medical admission for alcohol intoxication 06/25/2022 - 06/30/2022: inpatient psychiatry admission [facility] for alcohol use and depression/ anxiety 07/13/2022 - 07/17/2022: inpatient psychiatry admission [facility] for alcohol use and depression/anxiety 07/26/2022: ED presentation for alcohol intoxication and transferred to [facility] psychiatry 08/12/2022: ED presentation for alcohol intoxication 08/18/2022: medical admission for alcohol withdrawal 08/20/2022: inpt psych admission [facility] 09/11/2022: med admission for alcohol withdrawal 09/21/2022: med admission for alcohol withdrawal 10/05/2022: med admission for alcohol withdrawal Past Medication Trials: mirtazapine (didn't work), Wellbutrin, gabapentin, lexapro (recalls being very anxious), Librium (the best one that helped me with everything, helped me be the most level with stopping alcohol), naltrexone Allergies Allergy/AdvReac Type Severity Reaction Status Date / Time bupropion [From Wellbutrin] AdvReac Severe anxiety, Verified 11/08/22 11:55 confussion buspirone [From BuSpar] AdvReac Intermediate Shaking/john Verified 11/08/22 11:55 mor gluten AdvReac Intermediate Gastrointestinal Verified 11/08/22 11:55 Upset milk AdvReac Intermediate Gastrointestinal Verified 11/08/22 11:55 Upset gabapentin AdvReac Unknown Shakiness Verified 11/08/22 11:55 antihistamines AdvReac Intermediate "Just Uncoded 11/08/22 11:55 Don't Feel Right When I Take Them" Home Medications Medication Instructions Recorded Confirmed Type pantoprazole 40 mg tablet,delayed 40 mg PO QAM #30 tabs 09/24/22 11/14/22 Rx release clonazepam 0.5 mg tablet 0.5 mg 11/14/22 History Patient History Medical History Abdominal pain Acid reflux Acute sinusitis Alcohol abuse Alcohol abuse with alcohol-induced anxiety disorder Alcohol intoxication Alcohol use disorder Alcohol use disorder, severe, dependence 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 Alcoholic hepatitis Anxiety and depression Anxiety disorder, unspecified Chest pain COVID-19 Depression with suicidal ideation Depressive disorder Diplopia Dizziness Elevated liver enzymes BRITTNY (generalized anxiety disorder) BRITTNY (generalized anxiety disorder) Headache Homicidal ideation Hypokalemia Lab test negative for COVID-19 virus Left leg cellulitis No pertinent family history Pain, dental Post traumatic stress disorder (PTSD) Post traumatic stress disorder (PTSD) Self-harming behavior Suicidal behavior Suicidal ideation Suicidal ideations Tobacco abuse Transaminitis Surgical History No pertinent past surgical history Family History Mother Other No significant family history Denies family history of Ovarian cancer Prostate cancer Myocardial infarction Breast cancer Colorectal cancer Hypertension Social History Smoking Status: Never smoker Tobacco Type: Cigarettes Cigarettes Per Day: 1 PPD; Second Hand Exposure: No; Do You Dip or Chew Tobacco: No; Hx Alcohol Use: Yes Alcohol type: hard liquor Hx Substance Use: No Preferred Language: Indian Communication Ability: Effective Visual Impairment: No Limitations Hearing Ability: Normal Manager Of Security Required: No Beliefs That Will Affect Care: None marital status: Current Living Situation: Family Current Living Situation Comment: Lives with brother current occupational status: employed How many Children do You have: 1 Other Information That Helps Us Care for You: No Feels Safe at Home: Yes Safety Concerns: Feels Safe At This Time Childhood Exposure to Second-Hand Smoke: No Dental Care, Regularly: Yes Physical Activity Frequency: Daily Seatbelt Use: always Sunscreen Use: No Assistive Devices: None Physical Exam Psychiatric: Orientation: alert and oriented x 3 Eye Contact: good eye contact Speech: normal rate/rhythm/volume of speech Affect: + depressed affect Mood: + depressed mood Thought Process: goal directed thought process Thought Content: reality based without delusions Suicidal Thoughts: denies suicidal thoughts Homicidal Thoughts: denies homicidal thoughts Hallucinations: no auditory hallucinations and no visual hallucinations Cognition: attention grossly intact and language grossly intact Estimated Intelligence: consistent with education level Vital Signs (Past 24 Hours): Last Vital Signs Temp 36.9 C 11/16/22 15:19 Pulse 105 H 11/16/22 15:19 Resp 20 11/16/22 15:19 BP 124/87 11/16/22 15:19 Pulse Ox 97 11/16/22 15:19 O2 Del Method 11/16/22 15:19 Review of Systems All systems reviewed & are unremarkable except as noted in HPI & below Results & Data (PSY) Medications Administered Acetaminophen (Acetaminophen 325 Mg Tab) 650 mg PO Q4H PRN PRN Reason: mild pain, fever>101, headache Stop: 12/15/22 17:15 Last Admin: 11/16/22 15:24 Dose: 650 mg Documented By: Admin: 11/16/22 00:22 Dose: 650 mg Documented By: [facility] Admin: 11/15/22 17:44 Dose: 650 mg Documented By: AM Chlordiazepoxide HCl (Chlordiazepoxide Hcl 25 Mg Cap) 50 mg PO Q8H XIOMY; Taper Stop: 11/17/22 17:59 Last Admin: 11/16/22 10:01 Dose: 50 mg Documented By: Admin: 11/16/22 01:52 Dose: 50 mg Documented By: [facility] Admin: 11/15/22 17:43 Dose: 50 mg Documented By: Admin: 11/15/22 12:18 Dose: 50 mg Documented By: Admin: 11/15/22 05:56 Dose: 50 mg Documented By: [facility] Admin: 11/15/22 00:05 Dose: 50 mg Documented By: [facility] Admin: 11/14/22 18:44 Dose: 50 mg Documented By: MATEO Folic Acid (Folic Acid 1 Mg Tab) [facility] Stop: 12/15/22 08:59 Last Admin: 11/16/22 08:35 Dose: 1 mg Documented By: Admin: 11/15/22 11:03 Dose: 1 mg Documented By: JASE Lorazepam (Lorazepam 1 Mg Tab) 1 mg PO UD PRN; Protocol PRN Reason: EtOH Withdrawal AWSS Score 6,7 Stop: 12/14/22 17:49 Last Admin: 11/16/22 15:24 Dose: 1 mg Documented By: Admin: 11/16/22 00:21 Dose: 1 mg Documented By: Admin: 11/15/22 16:51 Dose: 1 mg Documented By: Admin: 11/15/22 07:42 Dose: 1 mg Documented By: Admin: 11/14/22 22:20 Dose: 1 mg Documented By: [facility] Admin: 11/14/22 20:19 Dose: 1 mg Documented By: MARK Miscellaneous (Remove Nicoderm Patch) 1 each N/A DAILY@0859 [facility] Stop: 12/16/22 08:58 Last Admin: 11/16/22 09:53 Dose: 1 each Documented By: AM Nicotine (Nicotine 14 Mg/24 Hr Patch) 14 mg TD [facility] Stop: 12/15/22 17:29 Last Admin: 11/16/22 09:53 Dose: 14 mg Documented By: Admin: 11/15/22 18:06 Dose: 14 mg Documented By: AM Ondansetron HCl (Ondansetron Inj 2 Mg/Ml 2 Ml Vial) 4 mg IV Q6H PRN PRN Reason: Nausea And Vomiting Stop: 12/15/22 10:59 Last Admin: 11/16/22 08:38 Dose: 4 mg Documented By: Admin: 11/15/22 19:31 Dose: 4 mg Documented By: ALH Pantoprazole Sodium (Pantoprazole 40 Mg Tab) 40 mg PO [facility] Stop: 12/15/22 08:59 Last Admin: 11/16/22 08:35 Dose: 40 mg Documented By: Admin: 11/15/22 11:02 Dose: 40 mg Documented By: AM Thiamine HCl (Thiamine Hcl 100 Mg Tab) 100 mg PO [facility] Stop: 12/15/22 08:59 Last Admin: 11/16/22 08:36 Dose: 100 mg Documented By: Admin: 11/15/22 11:03 Dose: 100 mg Documented By: AM Coding Level of Care Code 10036 [facility] Intl Hosp Care l 2 Diagnoses Alcohol use disorder F19.90 Depression, unspecified F33.1 Active/Remission status: currently active Depression Type: major depressive disorder Major depression episode severity: moderate Major depression recurrence: recurrent
[2022-11-16] MEDS ORDERED: chlordiazePOXIDE HCl 25 MG CAP PO ONE (16:59)
[2022-11-17] MEDS: chlordiazePOXIDE HCl 25 MG CAP PO SCH ×2 (02:14→09:37)
[2022-11-17 06:03] LABS: Hematocrit (blood only) 44.2 % (42.0-52.0); Mean Corpuscular Hemoglobin 33.3 pg (25.0-34.0); Mean Corpuscular Hgb Conc 36.2 g/dL (32.0-36.0); Mean Corpuscular Volume 92.1 fL (80.0-100.0); Mean Platelet Volume 10.3 fL (9.4-12.4); Platelet Count 224 K/uL (130-400); RDW Coefficient of Variation 11.8 % (11.5-14.5); RDW Standard Deviation 39.9 fL (36.4-46.3); White Blood Count 5.96 K/ul (4.8-10.8)
[2022-11-17 06:24] LABS: Albumin Level 4.4 gm/dl (3.4-5.0); Calcium 9.6 mg/dl (8.5-10.1); Magnesium 2.2 mg/dl (1.7-2.4); Potassium 3.6 mmol/L (3.5-5.1)
[2022-11-17 06:30] LABS: Albumin Globulin Ratio 1.6 (0.9-2); BUN Creatinine Ratio 13.3 (10-20); Creatinine Clr Calc Pharmacy 141.5 ml/min; Est GFR (African American) 135.9 ml/min; Est GFR (Non-African American) 117.2 ml/min; Globulin 2.8 gm/dl (2.5-4.0); Total Protein 7.2 gm/dl (6.0-8.3)
[2022-11-17] MEDS: FOLIC ACID 1 MG TAB PO SCH (08:43)
[2022-11-17] MEDS: THIAMINE HCL 100 MG TAB PO SCH (08:43)
[2022-11-17] MEDS: PANTOprazole 40 MG TAB PO SCH (08:43)
[2022-11-17] MEDS: NICOTINE 14 MG/24 HR PATCH TD SCH (08:43)
[2022-11-17] MEDS: LORazepam 1 MG TAB PO PRN (12:20)
[2022-11-17] MEDS: ACETAMINOPHEN 325 MG TAB PO PRN (12:24)
[2022-11-17] MEDS: ONDANSETRON INJ 2 MG/ML 2 ML VIAL IV PRN (12:25)
--- NOTE | 2022-11-17 15:59 | Hospitalist Progress Note ---
Date of Service November 17, 2022 Assessment & Plan (1) Depression with suicidal ideation: Plan: - Patient is currently afebrile, hemodynamically stable, and stable on RA - Patient does not endorse suicidal ideations at this time - There was initial concern that he took a handful of benzodiazepines as reported by ED staff but that patient's urine drug screen was completely negative, including benzodiazepines & he denies this - Suicide precautions ordered, continue to monitor on tele - Psychiatry consult placed, appreciate assistance -awaiting placement. (2) Alcohol abuse: Plan: - Patient's alcohol level at the time of the admission is 397 - He reports drinking 30 shots of vodka daily for the past week - Has a long history of significant alcohol withdrawal - Continue AWSS - Continue on high dose Librium taper now - Given 1 banana bag and then all him to eat a regular diet - Monitor on tele and pulse oximetry - Heart rate appears controlled, patient though with hallucinations and tremors. -patient appears to be improving. -continue libroum taper. Patient will require an additional dose of librium on 11/17. (3) Sinus tachycardia: Plan: - Patient has consistently presented in sinus tachycardia on his recent admissions - Likely due to EtOH withdrawal - Given a banana bag, EKG NSR rate of 83 - Currently in NSR with HR 80-90s Plan Await rec's from psych. Added Zofran for nausea. Otherwise, plan as outlined above. Above plan of care to be d/w Dr. Baird. Admission and Anticipated Discharge Date Admission Date: November 14, 2022 Subjective Patient reports feeling better today. He reports having less symptoms of withdrawal today. Patient is agreeable to go to a duo diagnosis facility. Review of Systems Review of Systems: All systems reviewed & are unremarkable except as noted in HPI & below Physical Exam Physical Exam: GENERAL: 32 yo Well-developed, well-nourished WM. NAD. LUNGS: Clear to auscultation bilaterally. No W/R/R. CARDIOVASCULAR: Regular rate and rhythm. No M/G/R. No JVD. ABDOMEN: Soft, non-tender and non-distended. BS normoactive x 4 quad. EXTREMITIES: No edema. Non-tender. Peripheral pulses +2/4. NEUROLOGIC: A&O x3. Nonfocal PSYCHIATRIC: Cooperative. Appropriate mood and affect. SKIN: Warm, dry, intact. No rashes or lesions. Results & Data Results & Data ([facility]) Vital Signs (Past 12 Hours) Vital Signs Temp Pulse Pulse Resp BP Pulse Ox O2 Del Method 11/17/22 15:39 36.5 C 77 18 118/81 99 Room Air 11/17/22 12:12 36.8 C 109 H 20 131/82 98 Room Air 11/17/22 11:37 56 L 11/17/22 08:46 36.4 C L 77 17 113/76 99 Room Air PG Care Time/CCT Total # of Minutes Spent Total Time Spent with Patient: Total time spent is greater than 50% in coordination of care (as documented) at patient's floor/unit and/or counseling patient: Coding Level of Care Code 66112 SUB INP/OBS CARE 2/35MIN Diagnoses Depression with suicidal ideation F32.A; R45.851 Alcohol abuse F10.10 Sinus tachycardia R00.0
[2022-11-17] MEDS ORDERED: chlordiazePOXIDE HCl 25 MG CAP PO ONE (16:19)
[2022-11-18] MEDS: PANTOprazole 40 MG TAB PO SCH (09:47)
[2022-11-18] MEDS: FOLIC ACID 1 MG TAB PO SCH (09:47)
[2022-11-18] MEDS: NICOTINE 14 MG/24 HR PATCH TD SCH (09:47)
[2022-11-18] MEDS: THIAMINE HCL 100 MG TAB PO SCH (09:47)
--- NOTE | 2022-11-18 11:25 | Psychiatric Progress Note ---
Date of Service November 18, 2022 Impression / Recommendations Impression Continues to improve. He says he has no recall of having made any suicidal threats on presentation, but also says he wouldn't doubt that because he has "a tendency to say stuff like that when drunk". He presents as subtly confused with hazy recent memory, but is grossly oriented. He speaks of "going to rehab" as if it were a matter of course and minimizes his numerous previous (and recent) such stays from which he's left AMA. Whether superficial or not, he does consitently voice a desire for future alcohol dependency treatment. After examination and careful consideration, it is my opinion that he does not meet criteria to request to renew the warrant for involuntary admission. He is desirous of treament and should be permitted to sign himself in to the hospital or to leave if he insists. I have completed and signed the "302" form accordingly. (1) Alcohol use disorder: (2) Depression, unspecified: Risk Factors Assessment Do You Have Access To A Gun?: No (were confiscated by police/past 302) Interval History Identifying Information 32 y/o man with severe alcohol dependence admitted for medical management of alcohol withdrawal after having presented to the ED highly intoxicated and making suicidal comments. Chief Complaint "I'm OK". Subjective Subjective Patient was seen & assessed and interval progress reviewed with floor nurse Physical Exam Psychiatric Orientation: alert and oriented x 3 Eye Contact: good eye contact Speech: normal rate/rhythm/volume of speech Affect: + depressed affect Mood: + depressed mood Thought Process: goal directed thought process Thought Content: reality based without delusions Suicidal Thoughts: denies suicidal thoughts Homicidal Thoughts: denies homicidal thoughts Hallucinations: no auditory hallucinations and no visual hallucinations Cognition: attention grossly intact and language grossly intact Estimated Intelligence: consistent with education level Vital Signs (Past 24 Hours) Last Vital Signs Temp 36.5 C 11/18/22 07:00 Pulse 78 11/18/22 07:00 Resp 18 11/18/22 07:00 BP 110/74 11/18/22 07:00 Pulse Ox 98 11/18/22 07:00 O2 Del Method 11/18/22 07:00 Results & Data ([facility]) Current Inpatient Medications Current Inpatient Medications: Current Inpatient Medications Acetaminophen (Acetaminophen 325 Mg Tab) 650 mg PO Q4H PRN PRN Reason: mild pain, fever>101, headache Stop: 12/15/22 17:15 Last Admin: 11/17/22 12:24 Dose: 650 mg Folic Acid ([facility] 1 Mg Tab) [facility] Stop: 12/15/22 08:59 Last Admin: 11/18/22 09:47 Dose: 1 mg Lorazepam (Lorazepam 1 Mg Tab) 1 mg PO UD PRN; Protocol PRN Reason: EtOH Withdrawal AWSS Score 6,7 Stop: 12/14/22 17:49 Last Admin: 11/16/22 23:16 Dose: 1 mg Lorazepam (Lorazepam 1 Mg Tab) 3 mg PO ONCE PRN; Protocol PRN Reason: EtOH Withdrawal AWSS Score 10 & above Lorazepam (Lorazepam 1 Mg Tab) 2 mg PO UD PRN; Protocol PRN Reason: EtOH Withdrawal AWSS Score 8,9 Stop: 12/14/22 17:49 Last Admin: 11/17/22 12:20 Dose: 2 mg Miscellaneous (Remove Nicoderm Patch) 1 each N/A DAILY@0859 [facility] Stop: 12/16/22 08:58 Last Admin: 11/18/22 09:47 Dose: 1 each Nicotine (Nicotine 14 Mg/24 Hr Patch) 14 mg TD [facility] Stop: 12/15/22 17:29 Last Admin: 11/18/22 09:47 Dose: 14 mg Ondansetron HCl (Ondansetron Inj 2 Mg/Ml 2 Ml Vial) 4 mg IV Q6H PRN PRN Reason: Nausea And Vomiting Stop: 12/15/22 10:59 Last Admin: 11/17/22 12:25 Dose: 4 mg Pantoprazole Sodium (Pantoprazole 40 Mg Tab) [facility] Stop: 12/15/22 08:59 Last Admin: 11/18/22 09:47 Dose: 40 mg Thiamine HCl (Thiamine Hcl 100 Mg Tab) 100 mg PO [facility] Stop: 12/15/22 08:59 Last Admin: 11/18/22 09:47 Dose: 100 mg (1) Depression, unspecified Active/Remission status: currently active Depression Type: major depressive disorder Major depression episode severity: moderate Major depression recurrence: recurrent Qualified Code(s): F33.1 - Major depressive disorder, recurrent, moderate
[2022-11-18] MEDS: LORazepam 1 MG TAB PO PRN (11:45)
[2022-11-18] MEDS: ACETAMINOPHEN 325 MG TAB PO PRN (11:48)
[2022-11-18] MEDS: chlordiazePOXIDE HCl 25 MG CAP PO SCH ×2 (14:47→21:30)
--- NOTE | 2022-11-18 21:18 | Hospitalist Progress Note ---
Date of Service November 18, 2022 Assessment & Plan (1) Depression with suicidal ideation: Plan: - Patient is currently afebrile, hemodynamically stable, and stable on RA - Patient does not endorse suicidal ideations at this time - There was initial concern that he took a handful of benzodiazepines as reported by ED staff but that patient's urine drug screen was completely negative, including benzodiazepines & he denies this - Suicide precautions ordered, continue to monitor on tele - Psychiatry consult placed, appreciate assistance -awaiting placement. Ordered chlordiazepoxide 25 mg PO TID on 11/18 Will continue to taper. (2) Alcohol abuse: Plan: - Patient's alcohol level at the time of the admission is 397 - He reports drinking 30 shots of vodka daily for the past week - Has a long history of significant alcohol withdrawal - Continue AWSS - Continue on high dose Librium taper now - Given 1 banana bag and then all him to eat a regular diet - Monitor on tele and pulse oximetry - Heart rate appears controlled, patient though with hallucinations and tremors. -patient appears to be improving. -continue libroum taper. Patient will require an additional dose of librium on 11/17. (3) Sinus tachycardia: Plan: - Patient has consistently presented in sinus tachycardia on his recent admissions - Likely due to EtOH withdrawal - Given a banana bag, EKG NSR rate of 83 - Currently in NSR with HR 80-90s Plan Await rec's from psych. Added Zofran for nausea. Otherwise, plan as outlined above. Above plan of care to be d/w Dr. Baird. Admission and Anticipated Discharge Date Admission Date: November 14, 2022 Subjective Patient reports doing better. He has required lorazepam per the nurse. Review of Systems Review of Systems: All systems reviewed & are unremarkable except as noted in HPI & below Physical Exam Physical Exam: GENERAL: 32 yo Well-developed, well-nourished WM. NAD. LUNGS: Clear to auscultation bilaterally. No W/R/R. CARDIOVASCULAR: Regular rate and rhythm. No M/G/R. No JVD. ABDOMEN: Soft, non-tender and non-distended. BS normoactive x 4 quad. EXTREMITIES: No edema. Non-tender. Peripheral pulses +2/4. NEUROLOGIC: A&O x3. Nonfocal PSYCHIATRIC: Cooperative. Appropriate mood and affect. SKIN: Warm, dry, intact. No rashes or lesions. Results & Data Results & Data ([facility]) Vital Signs (Past 12 Hours) Vital Signs Temp Pulse Resp BP Pulse Ox O2 Del Method 11/18/22 20:20 36.6 C 88 18 120/80 97 Room Air 11/18/22 14:52 36.8 C 87 18 118/84 96 Room Air 11/18/22 11:51 36.3 C L 107 H 20 125/89 99 Room Air PG Care Time/CCT Total # of Minutes Spent Total Time Spent with Patient: Total time spent is greater than 50% in coordination of care (as documented) at patient's floor/unit and/or counseling patient: Coding Level of Care Code 11728 SUB INP/OBS CARE 2/35MIN Diagnoses Depression with suicidal ideation F32.A; R45.851 Alcohol abuse F10.10 Sinus tachycardia R00.0
[2022-11-19] MEDS: chlordiazePOXIDE HCl 25 MG CAP PO SCH ×2 (05:08→17:24)
[2022-11-19] MEDS: PANTOprazole 40 MG TAB PO SCH (08:44)
[2022-11-19] MEDS: FOLIC ACID 1 MG TAB PO SCH (08:44)
[2022-11-19] MEDS: THIAMINE HCL 100 MG TAB PO SCH (08:44)
[2022-11-19] MEDS: NICOTINE 14 MG/24 HR PATCH TD SCH (08:44)
--- NOTE | 2022-11-19 09:48 | Hospitalist Progress Note ---
Date of Service November 19, 2022 Assessment & Plan (1) Depression with suicidal ideation: Plan: - Patient is currently afebrile, hemodynamically stable, and stable on RA - Patient does not endorse suicidal ideations at this time - There was initial concern that he took a handful of benzodiazepines as reported by ED staff but that patient's urine drug screen was completely negative, including benzodiazepines & he denies this - Suicide precautions ordered, continue to monitor on tele - Psychiatry consult placed, appreciate assistance -awaiting placement. Ordered chlordiazepoxide 25 mg PO TID on 11/18 Will continue to taper. Will now be on BID dosing on 11/19 Removed 1 to 1 observation. Patient still interested in going to rehab facility. (2) Alcohol abuse: Plan: - Patient's alcohol level at the time of the admission is 397 - He reports drinking 30 shots of vodka daily for the past week - Has a long history of significant alcohol withdrawal - Continue AWSS - Continue on high dose Librium taper now - Given 1 banana bag and then all him to eat a regular diet - Monitor on tele and pulse oximetry - Heart rate appears controlled, patient though with hallucinations and tremors. -patient appears to be improving. -continue libroum taper. NOw on librium taper BID dosing. (3) Sinus tachycardia: Plan: - Patient has consistently presented in sinus tachycardia on his recent admissions - Likely due to EtOH withdrawal - Given a banana bag, EKG NSR rate of 83 - Currently in NSR with HR 80-90s Improved. Plan Await rec's from psych. Added Zofran for nausea. Otherwise, plan as outlined above. Above plan of care to be d/w Dr. Baird. Admission and Anticipated Discharge Date Admission Date: November 14, 2022 Subjective Patient is resting comfortably. Patient has no new complaints. Review of Systems Review of Systems: All systems reviewed & are unremarkable except as noted in HPI & below Physical Exam Physical Exam: GENERAL: 32 yo Well-developed, well-nourished WM. NAD. LUNGS: Clear to auscultation bilaterally. No W/R/R. CARDIOVASCULAR: Regular rate and rhythm. No M/G/R. No JVD. ABDOMEN: Soft, non-tender and non-distended. BS normoactive x 4 quad. EXTREMITIES: No edema. Non-tender. Peripheral pulses +2/4. NEUROLOGIC: A&O x3. Nonfocal PSYCHIATRIC: Cooperative. Appropriate mood and affect. SKIN: Warm, dry, intact. No rashes or lesions. Results & Data Results & Data ([facility]) Vital Signs (Past 12 Hours) Vital Signs Temp Pulse Pulse Resp BP Pulse Ox O2 Del Method 11/19/22 07:39 36.4 C L 60 18 106/69 98 Room Air 11/19/22 03:30 36.3 C L 61 16 119/82 97 Room Air 11/18/22 22:07 59 L 11/18/22 23:14 36.5 C 70 16 112/68 97 Room Air PG Care Time/CCT Total # of Minutes Spent Total Time Spent with Patient: Total time spent is greater than 50% in coordination of care (as documented) at patient's floor/unit and/or counseling patient: Coding Level of Care Code 57592 SUB INP/OBS CARE 2/35MIN Diagnoses Depression with suicidal ideation F32.A; R45.851 Alcohol abuse F10.10 Sinus tachycardia R00.0
[2022-11-19] MEDS: LORazepam 1 MG TAB PO PRN (13:57)
[2022-11-19] MEDS: ACETAMINOPHEN 325 MG TAB PO PRN (13:57)
[2022-11-19] MEDS: ONDANSETRON INJ 2 MG/ML 2 ML VIAL IV PRN (17:26)
[2022-11-20] MEDS: chlordiazePOXIDE HCl 25 MG CAP PO SCH ×2 (05:23→16:48)
[2022-11-20 06:45] LABS: Hematocrit (blood only) 42.1 % (42.0-52.0); Hemoglobin 14.7 g/dl (14.0-18.0); Mean Corpuscular Hemoglobin 32.9 pg (25.0-34.0); Mean Corpuscular Hgb Conc 34.9 g/dL (32.0-36.0); Mean Corpuscular Volume 94.2 fL (80.0-100.0); Mean Platelet Volume 10.8 fL (9.4-12.4); Platelet Count 180 K/uL (130-400); RDW Standard Deviation 41.9 fL (36.4-46.3); Red Blood Count 4.47 M/uL (4.70-6.10); White Blood Count 6.81 K/ul (4.8-10.8)
[2022-11-20 07:15] LABS: Albumin Level 4.1 gm/dl (3.4-5.0); Bilirubin,Total 0.5 mg/dl (0.2-1.0); Calcium 9.3 mg/dl (8.5-10.1)
[2022-11-20 07:21] LABS: Albumin Globulin Ratio 1.6 (0.9-2); BUN Creatinine Ratio 13.3 (10-20); Creatinine Clr Calc Pharmacy 130.5 ml/min; Est GFR (African American) 131.4 ml/min; Est GFR (Non-African American) 113.4 ml/min; Globulin 2.5 gm/dl (2.5-4.0); Phosphorus 4.7 mg/dl (2.5-4.9); Total Protein 6.6 gm/dl (6.0-8.3)
[2022-11-20] MEDS: NICOTINE 14 MG/24 HR PATCH TD SCH (08:39)
[2022-11-20] MEDS: THIAMINE HCL 100 MG TAB PO SCH (08:39)
[2022-11-20] MEDS: PANTOprazole 40 MG TAB PO SCH (08:40)
[2022-11-20] MEDS: FOLIC ACID 1 MG TAB PO SCH (08:40)
[2022-11-20] MEDS ORDERED: LORazepam 2 MG/1 ML VIAL IV STA (11:52)
[2022-11-20] MEDS: ACETAMINOPHEN 325 MG TAB PO PRN ×2 (11:53→20:15)
[2022-11-20] MEDS: ONDANSETRON INJ 2 MG/ML 2 ML VIAL IV PRN (11:57)
--- NOTE | 2022-11-20 14:22 | Hospitalist Progress Note ---
Date of Service November 20, 2022 Assessment & Plan (1) Depression with suicidal ideation: Plan: - Patient is currently afebrile, hemodynamically stable, and stable on RA - Patient does not endorse suicidal ideations at this time - There was initial concern that he took a handful of benzodiazepines as reported by ED staff but that patient's urine drug screen was completely negative, including benzodiazepines & he denies this - Suicide precautions ordered, continue to monitor on tele - Psychiatry consult placed, appreciate assistance -awaiting placement. Ordered chlordiazepoxide 25 mg PO TID on 11/18 Will continue to taper. Will now be on BID dosing on 11/19 Removed 1 to 1 observation. Patient still interested in going to rehab facility. will continue BID dosing on 11/20. Patient required an additional dose of ativan 1 mg IV. rpeated ortho vitals, HR increased to 90 from 50. Likely withdrawl, vs POTS. will conisder beta jacquie if no improvement. (2) Alcohol abuse: Plan: - Patient's alcohol level at the time of the admission is 397 - He reports drinking 30 shots of vodka daily for the past week - Has a long history of significant alcohol withdrawal - Continue AWSS - Continue on high dose Librium taper now - Given 1 banana bag and then all him to eat a regular diet - Monitor on tele and pulse oximetry - Heart rate appears controlled, patient though with hallucinations and tremors. -patient appears to be improving. -continue libroum taper. NOw on librium taper BID dosing. (3) Sinus tachycardia: Plan: - Patient has consistently presented in sinus tachycardia on his recent admissions - Likely due to EtOH withdrawal - Given a banana bag, EKG NSR rate of 83 - Currently in NSR with HR 80-90s Improved. Plan Await rec's from psych. Added Zofran for nausea. Otherwise, plan as outlined above. Above plan of care to be d/w Dr. Baird. Admission and Anticipated Discharge Date Admission Date: November 14, 2022 Subjective 32 yo male reports no new symptoms. I was called to the room as patient had tremors and became tachycardic in the 170s when he stood up. Patient improved after ativan. Review of Systems Review of Systems: All systems reviewed & are unremarkable except as noted in HPI & below Physical Exam Physical Exam: GENERAL: 32 yo Well-developed, well-nourished WM. NAD. LUNGS: Clear to auscultation bilaterally. No W/R/R. CARDIOVASCULAR: Regular rate and rhythm. No M/G/R. No JVD. ABDOMEN: Soft, non-tender and non-distended. BS normoactive x 4 quad. EXTREMITIES: No edema. Non-tender. Peripheral pulses +2/4. NEUROLOGIC: A&O x3. Nonfocal PSYCHIATRIC: Cooperative. Appropriate mood and affect. SKIN: Warm, dry, intact. No rashes or lesions. Results & Data Results & Data ([facility]) Vital Signs (Past 12 Hours) Vital Signs Temp Pulse Pulse Resp BP BP Pulse Ox 11/20/22 12:18 36.5 C 147 H 20 122/92 98 11/20/22 10:36 59 L 11/20/22 08:35 36.4 C L 56 L 18 102/67 98 11/20/22 05:19 36.4 C L 54 L 16 103/63 98 O2 Del Method 11/20/22 12:18 Room Air 11/20/22 10:36 11/20/22 08:35 Room Air 11/20/22 05:19 Room Air PG Care Time/CCT Total # of Minutes Spent Total Time Spent with Patient: Total time spent is greater than 50% in coordination of care (as documented) at patient's floor/unit and/or counseling patient: Coding Level of Care Code 71418 SUB INP/OBS CARE 2/35MIN Diagnoses Depression with suicidal ideation F32.A; R45.851 Alcohol abuse F10.10 Sinus tachycardia R00.0
--- NOTE | 2022-11-20 15:39 | XCELERA ---
[id number]
[2022-11-21] MEDS: ACETAMINOPHEN 325 MG TAB PO PRN ×2 (04:59→22:13)
[2022-11-21] MEDS: chlordiazePOXIDE HCl 25 MG CAP PO SCH ×2 (04:59→16:53)
[2022-11-21 06:19] LABS: Hematocrit (blood only) 42.7 % (42.0-52.0); Hemoglobin 14.7 g/dl (14.0-18.0); Mean Corpuscular Hemoglobin 32.7 pg (25.0-34.0); Mean Corpuscular Hgb Conc 34.4 g/dL (32.0-36.0); Mean Corpuscular Volume 94.9 fL (80.0-100.0); Platelet Count 158 K/uL (130-400); RDW Coefficient of Variation 12.3 % (11.5-14.5); RDW Standard Deviation 42.9 fL (36.4-46.3); White Blood Count 6.66 K/ul (4.8-10.8)
[2022-11-21 06:34] LABS: Alanine Aminotransferase 20 U/L (7-52); Alkaline Phosphatase 37 U/L (34-104); Anion Gap 6 (3-11); Aspartate Aminotransferase 21 U/L (13-39); BUN Creatinine Ratio 17.5 (10-20); Bilirubin,Total 0.4 mg/dl (0.2-1.0); Blood Urea Nitrogen 14 mg/dl (6-23); C Reactive Protein < 0.50 mg/dl (0-0.5); Calcium 9.2 mg/dl (8.5-10.1); Carbon Dioxide 28 mmol/L (21-32); Chloride 106 mmol/L (98-107); Creatinine Clr Calc Pharmacy 146.8 ml/min; Glucose 82 mg/dl (70-99(Fasting)); Potassium 3.9 mmol/L (3.5-5.1); Sodium 140 mmol/L (136-145); Total Protein 6.5 gm/dl (6.0-8.3)
[2022-11-21] MEDS: NICOTINE 14 MG/24 HR PATCH TD SCH (08:19)
[2022-11-21] MEDS: FOLIC ACID 1 MG TAB PO SCH (08:19)
[2022-11-21] MEDS: THIAMINE HCL 100 MG TAB PO SCH (08:19)
[2022-11-21] MEDS: PANTOprazole 40 MG TAB PO SCH (08:19)
--- NOTE | 2022-11-21 20:31 | Hospitalist Progress Note ---
Date of Service November 21, 2022 Assessment & Plan (1) Depression with suicidal ideation: Plan: - Patient is currently afebrile, hemodynamically stable, and stable on RA - Patient does not endorse suicidal ideations at this time - There was initial concern that he took a handful of benzodiazepines as reported by ED staff but that patient's urine drug screen was completely negative, including benzodiazepines & he denies this - Suicide precautions ordered, continue to monitor on tele - Psychiatry consult placed, appreciate assistance -awaiting placement. Ordered chlordiazepoxide 25 mg PO TID on 11/18 Will continue to taper. Will now be on BID dosing on 11/19 will hold dosing after PM's dose on 11/21 Removed 1 to 1 observation. Patient still interested in going to rehab facility. will continue BID dosing on 11/20. This appears to be mainly withdrawal at this point. will continue to monitor. (2) Alcohol abuse: Plan: - Patient's alcohol level at the time of the admission is 397 - He reports drinking 30 shots of vodka daily for the past week - Has a long history of significant alcohol withdrawal - Continue AWSS - Continue on high dose Librium taper now - Given 1 banana bag and then all him to eat a regular diet - Monitor on tele and pulse oximetry - Heart rate appears controlled, patient though with hallucinations and tremors. -patient appears to be improving. -continue libroum taper. LIbrium is on hold. will likely order on dose of librium in AM. (3) Sinus tachycardia: Plan: - Patient has consistently presented in sinus tachycardia on his recent admissions - Likely due to EtOH withdrawal - Given a banana bag, EKG NSR rate of 83 - Currently in NSR with HR 80-90s Improved. Plan Await rec's from psych. Added Zofran for nausea. Otherwise, plan as outlined above. Above plan of care to be d/w Dr. Baird. Admission and Anticipated Discharge Date Admission Date: November 14, 2022 Subjective Patient reports feeling better today. Having less episodes of anxiety. Review of Systems Review of Systems: All systems reviewed & are unremarkable except as noted in HPI & below Physical Exam Physical Exam: GENERAL: 32 yo Well-developed, well-nourished WM. NAD. LUNGS: Clear to auscultation bilaterally. No W/R/R. CARDIOVASCULAR: Regular rate and rhythm. No M/G/R. No JVD. ABDOMEN: Soft, non-tender and non-distended. BS normoactive x 4 quad. EXTREMITIES: No edema. Non-tender. Peripheral pulses +2/4. NEUROLOGIC: A&O x3. Nonfocal PSYCHIATRIC: Cooperative. Appropriate mood and affect. SKIN: Warm, dry, intact. No rashes or lesions. Results & Data Results & Data ([facility]) Vital Signs (Past 12 Hours) Vital Signs Temp Pulse Pulse Pulse Resp BP Pulse Ox 11/21/22 19:32 36.3 C L 66 20 118/74 98 11/21/22 15:16 126 H 11/21/22 15:00 36.7 C 67 18 106/64 98 11/21/22 10:47 36.6 C 57 L 16 105/70 100 O2 Del Method 11/21/22 19:32 Room Air 11/21/22 15:16 11/21/22 15:00 Room Air 11/21/22 10:47 Room Air PG Care Time/CCT Total # of Minutes Spent Total Time Spent with Patient: Total time spent is greater than 50% in coordination of care (as documented) at patient's floor/unit and/or counseling patient: Coding Level of Care Code 79167 SUB INP/OBS CARE 2/35MIN Diagnoses Depression with suicidal ideation F32.A; R45.851 Alcohol abuse F10.10 Sinus tachycardia R00.0
[2022-11-21] MEDS: ONDANSETRON INJ 2 MG/ML 2 ML VIAL IV PRN (22:13)
[2022-11-22] MEDS: PANTOprazole 40 MG TAB PO SCH (08:32)
[2022-11-22] MEDS: THIAMINE HCL 100 MG TAB PO SCH (08:32)
[2022-11-22] MEDS: FOLIC ACID 1 MG TAB PO SCH (08:32)
[2022-11-22] MEDS: NICOTINE 14 MG/24 HR PATCH TD SCH (08:33)
--- NOTE | 2022-11-22 21:04 | Hospitalist Progress Note ---
Date of Service November 22, 2022 Assessment & Plan (1) Depression with suicidal ideation: Plan: - Patient is currently afebrile, hemodynamically stable, and stable on RA - Patient does not endorse suicidal ideations at this time - There was initial concern that he took a handful of benzodiazepines as reported by ED staff but that patient's urine drug screen was completely negative, including benzodiazepines & he denies this - Suicide precautions ordered, continue to monitor on tele - Psychiatry consult placed, appreciate assistance -awaiting placement. Ordered chlordiazepoxide 25 mg PO TID on 11/18 Will continue to taper. Will now be on BID dosing on 11/19 will hold dosing after PM's dose on 11/21 Removed 1 to 1 observation. Patient still interested in going to rehab facility. Patient did not require any dosing of librium on 11/22 Anticipate discharge on 11/23 to dual treatment facility. Even if patient requires an additional dose on 11/23 (though unlikely), this should not limit discharge as he has not required any benzos in past 24 hours. (2) Alcohol abuse: Plan: - Patient's alcohol level at the time of the admission is 397 - He reports drinking 30 shots of vodka daily for the past week - Has a long history of significant alcohol withdrawal - Continue AWSS - Continue on high dose Librium taper now - Given 1 banana bag and then all him to eat a regular diet - Monitor on tele and pulse oximetry - Heart rate appears controlled, patient though with hallucinations and tremors. -patient appears to be improving. LIbrium is on hold since 11/21. (3) Sinus tachycardia: Plan: - Patient has consistently presented in sinus tachycardia on his recent admissions - Likely due to EtOH withdrawal - Given a banana bag, EKG NSR rate of 83 - Currently in NSR with HR 80-90s Improved. Plan Await rec's from psych. Added Zofran for nausea. Otherwise, plan as outlined above. Above plan of care to be d/w Dr. Baird. Admission and Anticipated Discharge Date Admission Date: November 14, 2022 Subjective 32 yo male reports feeling well. He has no new complaints. Review of Systems Review of Systems: All systems reviewed & are unremarkable except as noted in HPI & below Physical Exam Physical Exam: GENERAL: 32 yo Well-developed, well-nourished WM. NAD. LUNGS: Clear to auscultation bilaterally. No W/R/R. CARDIOVASCULAR: Regular rate and rhythm. No M/G/R. No JVD. ABDOMEN: Soft, non-tender and non-distended. BS normoactive x 4 quad. EXTREMITIES: No edema. Non-tender. Peripheral pulses +2/4. NEUROLOGIC: A&O x3. Nonfocal PSYCHIATRIC: Cooperative. Appropriate mood and affect. SKIN: Warm, dry, intact. No rashes or lesions. Results & Data Results & Data ([facility]) Vital Signs (Past 12 Hours) Vital Signs Temp Pulse Pulse Resp BP Pulse Ox O2 Del Method 11/22/22 20:15 36.7 C 61 18 100/60 97 Room Air 11/22/22 16:27 37 C 60 18 103/66 98 Room Air 11/22/22 16:00 80 PG Care Time/CCT Total # of Minutes Spent Total Time Spent with Patient: Total time spent is greater than 50% in coordination of care (as documented) at patient's floor/unit and/or counseling patient: Coding Level of Care Code 16382 SUB INP/OBS CARE 2/35MIN Diagnoses Depression with suicidal ideation F32.A; R45.851 Alcohol abuse F10.10 Sinus tachycardia R00.0
[2022-11-22] MEDS: ACETAMINOPHEN 325 MG TAB PO PRN (21:30)
[2022-11-23] MEDS: PANTOprazole 40 MG TAB PO SCH (07:48)
[2022-11-23] MEDS: FOLIC ACID 1 MG TAB PO SCH (07:48)
[2022-11-23] MEDS: THIAMINE HCL 100 MG TAB PO SCH (07:49)
[2022-11-23] MEDS: NICOTINE 14 MG/24 HR PATCH TD SCH (07:49)
--- NOTE | 2022-11-23 18:35 | Discharge Summary ---
Date of Service November 23, 2022 Admission HPI Per Admitting Provider Chun is a 32 year old male with a PMH significant for alcohol abuse with multiple recent admissions for alcohol withdrawal, depression with suicidal ideations, and anxiety who presented to the [facility] ED on 11/14/22 with a chief complaint of suicidal ideations and benzodiazepine overdose. In the ED the patient was found to be afebrile, hemodynamically stable, tachycardic in the low 100's, and stable on RA. Labs were remarkable for a WBC of 4.77, stable Hgb and platelets, stable renal function and electrolytes, AG of 13, AST of 44, TSH of 0.656, clean UA, Urine drug screen negative including negative for benzodiazepines, alcohol level of 397, and covid negative. At the time of the exam the patient was sitting on the side of the bed and appears upset. He apologized multiple times stating that he started drinking again and is very embarrassed. I expressed to him that he should not apologize, that alcohol abuse is a serious disease and we are here to help him. He states that he started drinking again approximately one week ago. He has been drinking approximately 30 shots of vodka daily, his last shot of vodka was approximately one hour prior to coming to the ED. When asked why he started drinking again he paused for a long time and then stated that he did not wish to speak about that at the present time. I explained that the ED staff told us that he took a handful of benzodiazepines and that I needed to confirm if he took any pills. I explained that his urine tox screen was negative, including benzodiazepines, he confirmed to me that he did not actually take pills of any kind to overdose. I then asked he if he is having thoughts of suicide or homicidal ideations. He is not having homicidal ideations but is having suicidal ideations. When asked abo ut a plan to hurt himself he stated that he did not want to discuss that until he was sober. He denies any other complaints at this time and does want to get help with his drinking. Please refer to Dr. Rangel's attestation for any changes to the treatment plan Principal Diagnosis Alcohol abuse Alcohol withdrawal Depression Discharge Exam Patient is awake alert appropriate. He is not tremulous in any way did not have pressured speech or tremor. He denied suicidal ideation. He requested a desire to stop drinking and is encouraged to go to inpatient rehab Discharge Data Allergies Allergy/AdvReac Type Severity Reaction Status Date / Time bupropion [From Wellbutrin] AdvReac Severe anxiety, Verified 11/08/22 11:55 confussion buspirone [From BuSpar] AdvReac Intermediate Shaking/john Verified 11/08/22 11:55 mor gluten AdvReac Intermediate Gastrointestinal Verified 11/08/22 11:55 Upset gabapentin AdvReac Unknown Shakiness Verified 11/08/22 11:55 lactose AdvReac Unknown Gastrointestinal Verified 11/22/22 16:44 Upset antihistamines AdvReac Intermediate "Just Uncoded 11/08/22 11:55 Don't Feel Right When I Take Them" Consultations 11/14/22 17:04 ED Decision to Admit Stat 11/14/22 17:57 Consult Psychiatry Routine Hospital Course (1) Depression with suicidal ideation: - Patient does not endorse suicidal ideations at this time Patient did not require any dosing of librium on 11/22 discharge on 11/23 to dual treatment facility. Patient was not discharged on any benzodiazepines of any kind Certainly being away from the alcohol will improve his depression (2) Alcohol abuse: - Patient's alcohol level at the time of the admission is 397 - He reports drinking 30 shots of vodka daily for week prior to admission - Has a long history of significant alcohol withdrawal Patient expresses a desire to Center naltrexone at discharge from inpatient rehab (3) Sinus tachycardia: - Resolved with treatment of his alcohol withdrawal Total Time Total Time Spent Total Time Spent (In Minutes): It required less than 30 minutes to prepare this patient for discharge Discharge Plan Discharge Items Patient Disposition: Drug & Alcohol Rehab Reason For Visit: ALCOHOL WITHDRAWAL, SUICIDAL IDEATIONS Discharge Diagnosis: Alcohol withdrawal Depression and suicidal ideation Activity: Per Instructions section Activity Comment: gradually increase your activity Non-emergency contact: Primary Care Provider Call non-emergency contact if: your symptoms worsen Follow-up/Referrals: Bri Cervantes MD [Primary Care Provider] - 11/27/22 10:20 am Diet: Regular Addtl Attending Provider Instructions: Please avoid alcohol intake or exposure at all costs. Follow up with a primary care doctor when you are discharged from Rehab Pending Studies at Discharge: No Stand-Alone Forms: My [facility] Skilled Items Patient informed of condition?: Yes DNR: No Discharge Level of Care: Other Communicable Disease: No Discharge Prognosis: Stable Lines: None Urinary Catheter: No Medications and DC Order Prescriptions: New nicotine 7 mg/24 hr Patch 24 Hour 14 mg transdermal QAM Qty: 7 0RF Continued pantoprazole 40 mg Tablet,Delayed Release (Dr/Ec) 40 mg PO QAM Qty: 30 0RF Discontinued clonazepam 0.5 mg tablet 0.5 mg Discharge Orders: Discharge Order (Routine); Ordered 11/23/22 Ordered By: Meet Baird Admission Data Admit Date/Time: 11/14/22 17:50 Attending Provider: Meet Baird Admit Provider: Lazaro Rangel Primary Care Provider: Bri Cervantes Other Providers: Lazaro Rangel ; Vita Mackey ; Angie Carrillo ; Wilman Wiley Other Interventions: Discharge Summary Assessment (RN) Last Done: 11/23/22 09:26 Coding Level of Care Code HOSP INP/OBS DISCH 30 MIN/LESS Diagnoses Depression with suicidal ideation F32.A; R45.851 Alcohol abuse F10.10 Sinus tachycardia R00.0
== END 2022-11-23 14:57 | disposition alcohol treatment (31) | DRG 897 ==
LOC: ED 14:53 → SUATTDRO 17:50 → 4W 17:50

== ENCOUNTER 2023-09-25 11:58 | Inpatient (IN) ==
[2023-09-25] MEDS ORDERED: LORazepam 1 MG TAB PO STA (12:18)
--- NOTE | 2023-09-25 12:21 | Emergency Department Note ---
Impression & Plan Alcohol withdrawal ADMIT ED Provider Note HPI: History obtained from patient. The patient is a 33-year-old male with history of alcohol abuse, presents emergency department with suicidal thoughts. Patient does appear intoxicated on arrival. States his last drink was 12 hours ago. Patient states that he has been having thoughts of wanting to cut himself in an attempt to kill himself. He states he has been having these thoughts "a lot". Patient is anxious appearing on arrival but is otherwise cooperative with exam and history on my assessment. On arrival here to the ED the patient tells me he does feel that he is going through alcohol withdrawal and states he feels very "hot". Patient is noted to be hemodynamically stable on arrival, he is afebrile on arrival. ROS: - Per HPI *Outpatient medications and allergy history reviewed. PE: General: Alert anxious appearing, intoxicated appearing HEENT: Normocephalic, trachea midline Eyes: Extraocular eye movement is intact, no scleral erythema Pulmonary: Clear to auscultation bilaterally, no wheezing Cardio: Regular rate and rhythm GI: Abdomen is soft to palpation : No suprapubic tenderness MSK: No evidence of trauma or malformation of the extremities, no edema Skin: No evidence of rash Neuro: Alert, no focal deficits Psychiatric: Anxious appearing but overall cooperative Interventions provided in ED: -IV Ativan Medical Decision Making: Patient presented to the emergency department via police for suicidal ideation. Patient contacted crisis earlier today and stated he was having thoughts of wanting to kill himself and had a knife. Patient was therefore brought in by PD, 302 was filed and temporarily upheld by myself while pending sobriety and reevaluation. Lab work shows no leukocytosis, hemoglobin is normal, platelet count is normal, CMP does not show any critical findings, alcohol level is markedly elevated at 294. Patient does have a history of similar presentations here to the ED, he has previously required admission for alcohol withdrawal syndrome. On my reassessment several hours after the patient arrived, he tells me he is feeling still that he is going through alcohol withdrawal and now states that he is seeing "angels with sharp wings flying around the room". Given this he was given an additional dose of IV Ativan and plan will be to admit the patient to the hospitalist service. [facility] hospitalist service was consulted for admission, case was discussed with Dr. Herrera. Consultants/Discussions held with other healthcare providers: -Hospitalist service, Dr. Herrera Disposition discussion held by myself with: -Patient * CRITICAL CARE TIME: (33) minutes -Management of acute alcohol withdrawal syndrome requiring IV benzodiazepines for stabilization, time spent at the bedside, discussion with other physicians and arrangement of admission for inpatient management of alcohol withdrawal and suicidal ideation. Diagnosis: 1. Suicidal ideations, acute 2. 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 Alcoholic hepatitis Anxiety and depression Anxiety disorder, unspecified Chest pain COVID-19 Depression with suicidal ideation Depressive disorder Diplopia Dizziness Elevated liver enzymes BRITTNY (generalized anxiety disorder) BRITTNY (generalized anxiety disorder) Headache Homicidal ideation Hypokalemia Lab test negative for COVID-19 virus Left leg cellulitis No pertinent family history Pain, dental Post traumatic stress disorder (PTSD) Post traumatic stress disorder (PTSD) Self-harming behavior Suicidal behavior Suicidal ideation Suicidal ideations Tobacco abuse Transaminitis Surgical History No pertinent past surgical history Family History Mother Other No significant family history Denies family history of Ovarian cancer Prostate cancer Myocardial infarction Breast cancer Colorectal cancer Hypertension Social History Smoking Status: Current every day smoker Tobacco Type: Cigarettes Cigarettes Per Day: 1 PPD; Second Hand Exposure: No; Do You Dip or Chew Tobacco: No; Hx Alcohol Use: Yes Alcohol type: hard liquor Hx Substance Use: No Preferred Language: Turkish Communication Ability: Effective Visual Impairment: No Limitations Hearing Ability: Normal Pearl Glue Drier Required: No Beliefs That Will Affect Care: None marital status: Current Living Situation: Family Current Living Situation Comment: Lives with brother current occupational status: employed How many Children do You have: 1 Feels Safe at Home: No Is there a partner from a previous relationship who is making you feel unsafe now?: No Childhood Exposure to Second-Hand Smoke: No Diet: regular Dental Care, Regularly: Yes Physical Activity Frequency: Daily Seatbelt Use: always Sunscreen Use: No Assistive Devices: None Allergies Allergies Allergy/AdvReac Type Severity Reaction Status Date / Time bupropion [From Wellbutrin] AdvReac Severe anxiety, Verified 11/08/22 11:55 confussion buspirone [From BuSpar] AdvReac Intermediate Shaking/john Verified 11/08/22 11:55 mor gluten AdvReac Intermediate Gastrointestinal Verified 11/08/22 11:55 Upset gabapentin AdvReac Unknown Shakiness Verified 11/08/22 11:55 lactose AdvReac Unknown Gastrointestinal Verified 11/22/22 16:44 Upset antihistamines AdvReac Intermediate "Just Uncoded 11/08/22 11:55 Don't Feel Right When I Take Them" Home Meds Home Medications Medication Instructions Recorded Confirmed bupropion HCl 100 mg tablet,12 hr 100 mg PO QAM 09/25/23 09/25/23 sustained-release escitalopram oxalate 10 mg tablet 10 mg PO QAM 09/25/23 09/25/23 escitalopram oxalate 5 mg tablet 5 mg PO QAM 09/25/23 09/25/23 gabapentin 100 mg capsule 100 mg PO BID 09/25/23 09/25/23 gabapentin 300 mg capsule 300 mg PO BID 09/25/23 09/25/23 quetiapine 100 mg tablet 100 mg PO HS 09/25/23 09/25/23 Results & Data (ED) Vital Signs Vital Signs - 24 hr 09/25/23 11:58 09/25/23 12:14 Temperature 37.3 C 37.3 C Temperature Source Oral Oral Pulse Rate 84 Pulse Rate [Right Finger] 84 Pulse Rhythm [Right Finger] Regular Pulse Strength [Right Finger] Normal Respiratory Rate 19 19 Respiratory Effort / Characteristics Non-Labored Non-Labored Spontaneous Respiratory Depth Normal Normal Respiratory Pattern Regular Blood Pressure 114/88 Blood Pressure [Right Arm] 114/88 Blood Pressure Mean 96 Blood Pressure Mean [Right Arm] 96 Pulse Oximetry 99 99 Oxygen Delivery Method Room Air Room Air Sepsis Recent Fever Within 48 Hours No Sepsis New/Unexplained Change in Mental Status N/A Sepsis Action Taken by Nursing No Action Required Laboratory Data 09/25/23 12:27 09/25/23 12:27 Lab Results 09/25/23 09/25/23 Range/Units 12:00 12:27 WBC 7.61 (4.8-10.8) K/ul RBC 5.10 (4.70-6.10) M/uL Hgb 15.8 (14.0-18.0) g/dl Hct 45.3 (42.0-52.0) % MCV 88.8 (80.0-100.0) fL MCH 31.0 (25.0-34.0) pg MCHC 34.9 (32.0-36.0) g/dL RDW Std Deviation 43.2 (36.4-46.3) fL RDW Coeff of Bryanna 13.2 (11.5-14.5) % Plt Count 272 (130-400) K/uL MPV 9.8 (9.4-12.4) fL Immature Gran % (Auto) 0.8 % Neut % (Auto) 62.1 % Lymph % (Auto) 30.6 % Collin % (Auto) 4.3 % Eos % (Auto) 1.3 % Baso % (Auto) 0.9 % Neut # (Auto) 4.72 (1.40-6.50) K/uL Lymph # (Auto) 2.33 (1.20-3.40) K/uL Collin # (Auto) 0.33 (0.11-0.59) K/uL Eos # (Auto) 0.10 (0.00-0.50) K/uL Baso # (Auto) 0.07 (0.00-0.20) K/uL Immature Gran # (Auto) 0.06 (0.01-0.20) K/uL Sodium 144 (136-145) mmol/L Potassium 3.7 (3.5-5.1) mmol/L Chloride 107 (98-107) mmol/L Carbon Dioxide 28 (21-32) mmol/L Anion Gap 9 (3-11) BUN 14 (6-23) mg/dl Creatinine 0.85 (0.6-1.4) mg/dl Est Cr Clr Drug Dosing 136.9 ml/min Est GFR ( Amer) 133.6 ml/min Est GFR (Non-Af Amer) 115.3 ml/min BUN/Creatinine Ratio 16.5 (10-20) Glucose 109 H (70-99(Fasting)) mg/dl Calcium 9.0 (8.6-10.3) mg/dl Total Bilirubin 0.4 (0.2-1.0) mg/dl AST 38 (13-39) U/L ALT 31 (7-52) U/L Alkaline Phosphatase 53 (34-104) U/L Total Protein 7.6 (6.0-8.3) gm/dl Albumin 4.4 (3.4-5.0) gm/dl Globulin 3.2 (2.5-4.0) gm/dl Albumin/Globulin Ratio 1.4 (0.9-2) TSH 0.913 (0.300-4.500) uIu/ml Urine Color Yellow Urine Appearance Clear (Clear) Urine pH 7.5 (4.5-7.5) Ur Specific [place] 1.005 (1.000-1.030) Urine Protein Negative (Negative) Urine Glucose (UA) Negative (Negative) Urine Ketones Negative (Negative) Urine Blood Negative (Negative) Urine Nitrite Negative (Negative) Urine Bilirubin Negative (Negative) Urine Urobilinogen Negative (Negative) Ur Leukocyte Esterase Negative (Negative) Salicylates < 3.0 L (3.0-30) mg/dl Urine Opiates Screen Neg (Neg) Ur Methadone, Qual Neg (Neg) Acetaminophen < 3 L (10-30) ug/ml Urine Barbiturates Neg (Neg) Ur Phencyclidine (PCP) Neg (Neg) U Amphetamin/Meth Scrn Neg (Neg) MDMA (Ecstasy) Screen Neg (Neg) U Benzodiazepines Scrn Neg (Neg) Ur Cocaine Metabolite Neg (Neg) U Marijuana (THC) Screen Neg (Neg) Ethyl Alcohol mg/dL 294.9 H (<10.0) mg/dl Administered Medications Discontinued Medications Lorazepam (Lorazepam 1 Mg Tab) 1 mg PO NOW STA Stop: 09/25/23 12:19 Last Admin: 09/25/23 12:30 Dose: 1 mg Documented By: TONY Discharge Plan Visit Data Chief Complaint: Mental Health Evaluation Stated Complaint: [facility] ED Provider: Wilman Cobos Discharge Problem: Alcohol withdrawal Forms Stand Alone Forms: My [facility], Suicide Prevention Resources Prescriptions Prescriptions: No Action quetiapine 100 mg tablet 100 mg PO HS bupropion HCl 100 mg tablet sustained-release 12 hr 100 mg PO QAM gabapentin 300 mg capsule 300 mg PO BID gabapentin 100 mg capsule 100 mg PO BID Rx Instructions: take along with 300 mg escitalopram oxalate 10 mg tablet 10 mg PO QAM escitalopram oxalate 5 mg tablet 5 mg PO QAM Referrals Referrals: Bri Cervantes MD [Primary Care Provider] - Discharge Problem: Alcohol withdrawal Qualifiers: Complication of substance-induced condition: uncomplicated Qualified Code(s): F 10.930 - Alcohol use, unspecified with withdrawal, uncomplicated
[2023-09-25 12:36] LABS: Appearance Urine Clear (Clear); Bilirubin Urine Negative (Negative); Blood Urine Negative (Negative); Color Urine Yellow; Glucose Urine UA Negative (Negative); Ketones Urine Negative (Negative); Leukocyte Esterase Urine Negative (Negative); Nitrite Urine Negative (Negative); Protein Urine Negative (Negative); Specific Gravity Urine 1.005 (1.000-1.030); Urobilinogen Urine Negative (Negative); pH Urine 7.5 (4.5-7.5)
[2023-09-25 13:01] LABS: Basophils # (auto) 0.07 K/uL (0.00-0.20); Basophils % (auto) 0.9 %; Eosinophils % (auto) 1.3 %; Hematocrit (blood only) 45.3 % (42.0-52.0); Hemoglobin 15.8 g/dl (14.0-18.0); Immature Granulocytes # (auto) 0.06 K/uL (0.01-0.20); Immature Granulocytes % (auto) 0.8 %; Lymphocytes # (auto) 2.33 K/uL (1.20-3.40); Lymphocytes % (auto) 30.6 %; Mean Corpuscular Hgb Conc 34.9 g/dL (32.0-36.0); Mean Corpuscular Volume 88.8 fL (80.0-100.0); Mean Platelet Volume 9.8 fL (9.4-12.4); Monocytes # (auto) 0.33 K/uL (0.11-0.59); Monocytes % (auto) 4.3 %; Neutrophils # (auto) 4.72 K/uL (1.40-6.50); Neutrophils % (auto) 62.1 %; Platelet Count 272 K/uL (130-400); RDW Coefficient of Variation 13.2 % (11.5-14.5); RDW Standard Deviation 43.2 fL (36.4-46.3); White Blood Count 7.61 K/ul (4.8-10.8)
[2023-09-25 13:03] LABS: Amphetamines+Metham, Urine Neg (Neg); Barbiturates, Urine Neg (Neg); Benzodiazepine, Urine Neg (Neg); Cocaine, Urine Neg (Neg); MDMA (Ecstacy), Urine Neg (Neg); Marijuana, Urine Neg (Neg); Methadone, Urine Neg (Neg); Opiate, Urine Neg (Neg); Phencyclidine, Urine Neg (Neg)
[2023-09-25 13:09] LABS: Acetaminophen < 3 ug/ml (10-30); Salicylate < 3.0 mg/dl (3.0-30)
[2023-09-25 13:14] LABS: Albumin Globulin Ratio 1.4 (0.9-2); Albumin Level 4.4 gm/dl (3.4-5.0); BUN Creatinine Ratio 16.5 (10-20); Bilirubin,Total 0.4 mg/dl (0.2-1.0); Creatinine Clr Calc Pharmacy 136.9 ml/min; Est GFR (African American) 133.6 ml/min; Est GFR (Non-African American) 115.3 ml/min; Globulin 3.2 gm/dl (2.5-4.0); Potassium 3.7 mmol/L (3.5-5.1); Total Protein 7.6 gm/dl (6.0-8.3)
[2023-09-25 13:27] LABS: Thyroid Stimulating Hormone 0.913 uIu/ml (0.300-4.500)
[2023-09-25] MEDS ORDERED: LORazepam 1 MG/1 ML SYR ED Inj Use IV STA (14:50)
[2023-09-25] MEDS ORDERED: PHENobarbital sodium 65 MG/ML VIAL IV STA (15:15)
[2023-09-25] MEDS ORDERED: PHENobarbital PO Alcohol Withdrawal PO STA (15:15)
--- NOTE | 2023-09-25 15:19 | History & Physical Report ---
Date of Service September 25, 2023 Assessment & Plan (1) Alcohol withdrawal: Plan: Last drink on the night of 09/24; reportedly drank 30-35 drinks including vodka and 8% white claws Patient reports he drinks 30 drinks per day; mainly white claws and hard vodka Ethyl alcohol level 294 in the ED Hx of alcohol withdrawal seizures, with the last being 3 months ago while on a Librium taper At time of admission, he is tremulous, and having visual/auditory hallucinations EKG ordered, pending Seizure precautions Monitor electrolytes; maintain K>4, mag>2 Banana bag x1 Phenobarbital load started in the ED; AWSS protocol with phenobarbital Continue gabapentin Continue Seroquel Continue Wellbutrin, as discontinuing Wellbutrin can precipitate seizures; however, recommend that patient be weaned off Wellbutrin in the outpatient setting as he has a history of alcohol withdrawal seizures, and this medication has been known to decrease seizure threshold Continuous telemetry monitoring Continuous pulse oximetry A.m. CBC, BMP, mag, PT/INR (2) Depression with suicidal ideation: Plan: Patient reportedly called the crisis center on the night of 09/24, reporting that he was going to stab himself with a knife Hx of depression with SI He reports that he has ongoing depression with SI that arises every 1 to 2 months 1:1 observation until cleared by psych Safe tray MedPsych bed required 302 was signed in the ED Psychiatry consulted; patient is amenable to seeing psychiatry when the patient (3) Anxiety: Plan: Continue escitalopram Plan Disposition: Admit to PCU telemetry Full code 1:1 observation Regular diet, safe tray VTE PPx: Will defer for now History of Present Illness Chief Complaint: Alcohol withdrawal, mental health evaluation Primary Care Provider: Bri Cervantes MD Chun is a 33-year-old male with PMH of alcohol use disorder, depression with suicidal ideations, and anxiety. He presented after calling the crisis center with suicidal ideations. He was intoxicated and reportedly had a knife, saying that he was going to stab himself/cut himself. He was brought in via police and a 302 was signed in the ED. Ethyl alcohol level was 294 on arrival. He reports that he drank 30-35 drinks the night of 09/24, which was 16 hours prior to admission. He drinks 8% white claws and vodka, and regularly drinks 30 drinks per day. He is amenable to speaking with psychiatry while inpatient. He reports that he has suicidal ideations that are triggered every 1 to 2 months. Last time he had them he reports that he cut himself. He reports a history of seizures related to alcohol withdrawal, with the last seizure on a Librium taper 3 months ago; no history of seizures outside of alcohol withdrawal. Patient did not take his morning medications. He reports a recent change in Seroquel from 50mg --> 100 mg daily; this was changed last week. At time of admission, patient endorses visual/auditory hallucinations. He reports that he can see angels, and hear echoes. He also reports that something keeps "coming after him". Patient denies any recent falls, or head trauma. Vitals are stable at time of admission. ED course: Lorazepam 1 mg IV ROS: Patient endorses DECKER, visual/auditory hallucinations, sweating, tremors, dizziness, and lightheadedness. Patient denies chest pain, SOB, abdominal pain, N/V/D, or urinary symptoms. Allergies Allergy/AdvReac Type Severity Reaction Status Date / Time bupropion [From Wellbutrin] AdvReac Severe anxiety, Verified 11/08/22 11:55 confussion buspirone [From BuSpar] AdvReac Intermediate Shaking/john Verified 11/08/22 11:55 mor gluten AdvReac Intermediate Gastrointestinal Verified 11/08/22 11:55 Upset gabapentin AdvReac Unknown Shakiness Verified 11/08/22 11:55 lactose AdvReac Unknown Gastrointestinal Verified 11/22/22 16:44 Upset antihistamines AdvReac Intermediate "Just Uncoded 11/08/22 11:55 Don't Feel Right When I Take Them" Home Medications Medication Instructions Recorded Confirmed Type bupropion HCl 100 mg tablet,12 hr 100 mg PO QAM 09/25/23 09/25/23 History sustained-release escitalopram oxalate 10 mg tablet 10 mg PO QAM 09/25/23 09/25/23 History escitalopram oxalate 5 mg tablet 5 mg PO QAM 09/25/23 09/25/23 History gabapentin 100 mg capsule 100 mg PO BID 09/25/23 09/25/23 History gabapentin 300 mg capsule 300 mg PO BID 09/25/23 09/25/23 History quetiapine 100 mg tablet 100 mg PO HS 09/25/23 09/25/23 History Past Med/Surg History Medical History Abdominal pain Acid reflux Acute sinusitis Alcohol abuse Alcohol abuse with alcohol-induced anxiety disorder Alcohol intoxication Alcohol use disorder Alcohol use disorder, severe, dependence 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 Alcoholic hepatitis Anxiety and depression Anxiety disorder, unspecified Chest pain COVID-19 Depression with suicidal ideation Depressive disorder Diplopia Dizziness Elevated liver enzymes BRITTNY (generalized anxiety disorder) BRITTNY (generalized anxiety disorder) Headache Homicidal ideation Hypokalemia Lab test negative for COVID-19 virus Left leg cellulitis No pertinent family history Pain, dental Post traumatic stress disorder (PTSD) Post traumatic stress disorder (PTSD) Self-harming behavior Suicidal behavior Suicidal ideation Suicidal ideations Tobacco abuse Transaminitis Surgical History No pertinent past surgical history Family History Mother Other No significant family history Denies family history of Ovarian cancer Prostate cancer Myocardial infarction Breast cancer Colorectal cancer Hypertension Social History Smoking Status: Current every day smoker Tobacco Type: Cigarettes Cigarettes Per Day: 1 PPD; Second Hand Exposure: No; Do You Dip or Chew Tobacco: No; Hx Alcohol Use: Yes Alcohol type: hard liquor Hx Substance Use: No Preferred Language: Malian Communication Ability: Effective Visual Impairment: No Limitations Hearing Ability: Normal Detonator Assembler Required: No Beliefs That Will Affect Care: None marital status: Current Living Situation: Alone Current Living Situation Comment: Lives with brother current occupational status: employed How many Children do You have: 1 Feels Safe at Home: Yes Childhood Exposure to Second-Hand Smoke: No Diet: regular Dental Care, Regularly: Yes Physical Activity Frequency: Daily Seatbelt Use: always Sunscreen Use: No Assistive Devices: None Review of Systems Review of Systems: See HPI above Physical Exam Physical Exam: General: Tremulous; diaphoretic; cooperative HEENT: normocephalic, atraumatic; no scleral icterus; pupils grossly dilated; moist mucus membrane; vision and hearing grossly intact Neck: supple; no lymphadenopathy; trachea midline Skin: warm, moist without signs of tenting; no cyanosis; no rashes, bruising, lesions, or erythema noted CV: chest wall NTP; RRR; S1/S2 normal; no murmurs/rubs/gallops; pulses intact and symmetric at radial, DP, and PT Lungs: no acute respiratory distress; symmetrical chest wall expansion; clear breath sounds across all lung brown w/o adventitious sounds; no wheezing ABD: Soft, NTP; BS present; no rebound/guarding; no ascites; no distention MSK: no edema noted in the LEs b/l Neuro: A&Ox3; normal mood and affect; fluent speech; CN2-12 intact; no focal deficits; sensation grossly intact Results & Data Results & Data Vital Signs (Past 12 Hours) Vital Signs Temp Pulse Pulse Resp BP BP Pulse Ox 09/25/23 12:14 37.3 C 84 19 114/88 99 09/25/23 11:58 37.3 C 84 19 114/88 99 O2 Del Method 09/25/23 12:14 Room Air 09/25/23 11:58 Room Air Laboratory Results Abnormal lab results 09/25/23 Range/Units 12:27 Glucose 109 H (70-99(Fasting)) mg/dl Salicylates < 3.0 L (3.0-30) mg/dl Acetaminophen < 3 L (10-30) ug/ml Ethyl Alcohol mg/dL 294.9 H (<10.0) mg/dl Code Status & VTE Plan Code Status Full code VTE Prophylaxis Plan VTE Prophylaxis will be ordered: No Supervising Physician Co-Signing Physician Notes I personally saw and examined the patient. I independently reviewed the labs, EKG, imaging, problem list, medication list, past medical history and family history. I verified all abel points and agree with [place] PA-C with the following exceptions and/or additions: 33 year old male with alcohol use disorder. Does not remember statements he made earlier to crisis line but reportedly said he had a knife and was going to harm himself. Brought in by police. Reportedly drinks 30 shots vodka daily with multiple withdrawals in the past - previously he reports phenobarbital has controlled his symptoms well. Mild tremors, drowsy but awakes easily. O/E A&Ox3, HS RRR, no murmurs, Chest CTAB, Abdo SNT, no CVA tenderness, PERRL, no current self harm, suicidal or homicidal ideation A/P Alcohol withdrawal - history of seizures and hallucinations. Given hallucination frequently with his withdrawal will start phenobarbital. Current Doris Marcum order set is a significant under dosing of 8mg/kg aim (ideal body weight 78kg) - 624mg in first 24 hours therefore will double initial loading dose to 260mg with the usual order set but may need additional orders if withdrawal symptoms getting worse. Currently RASS -1 after loading dose given when patient see around 21:00. Suicidal ideation - 302 warrant removed as statements made while intoxicated. Now no longer having suicidal ideation or thoughts of self harm. Psych consulted. PG Care Time/CCT Total # of Minutes Spent Total Time Spent with Patient: Total time spent is greater than 50% in coordination of care (as documented) at patient's floor/unit and/or counseling patient: Coding [place] [address] INT INP/OBS CARE 3/75MIN Patient Type Established Medical Decision Making Moderate Complexity Diagnoses Alcohol withdrawal F10.930 Complication of substance-induced condition: uncomplicated Depression with suicidal ideation F32.A; R45.851 Anxiety F41.9 (1) Alcohol withdrawal Complication of substance-induced condition: uncomplicated Qualified Code(s): F10.930 - Alcohol use, unspecified with withdrawal, uncomplicated
[2023-09-25] MEDS ORDERED: PHENobarbital sodium 65 MG/ML VIAL IV PRN (15:31)
[2023-09-25] MEDS ORDERED: PHENOBARBITAL SODIUM IV ONE (15:45)
[2023-09-25] MEDS ORDERED: SODIUM CHLORIDE 0.9% IV ONE (15:45)
[2023-09-25 16:06] LABS: Magnesium 1.9 mg/dl (1.7-2.4)
[2023-09-25] MEDS ORDERED: MULTI-VITAMIN INFUSION 10 ML, THIAMINE HCL 100 MG, FOLIC ACID 1 MG in SODIUM CHLORIDE 0... IV ONE (16:30)
[2023-09-25 16:41] LABS: Prothrombin Time 10.7 Seconds (9.0-12.0)
[2023-09-25] MEDS ORDERED: ONDANSETRON INJ 2 MG/ML 2 ML VIAL IV PRN (18:17)
[2023-09-25] MEDS: PHENobarbital sodium 65 MG/ML VIAL IV PRN (19:28)
[2023-09-25] MEDS: GABAPENTIN 300 MG CAP PO SCH (20:29)
[2023-09-25] MEDS: GABAPENTIN 100 MG CAP PO SCH (20:30)
[2023-09-25] MEDS: QUEtiapine FUMARATE 100 MG TABLET PO SCH (20:30)
[2023-09-25] MEDS ORDERED: LACTATED RINGER'S 1,000 ML IV ONE (21:59)
[2023-09-26] MEDS: LACTATED RINGER'S 1,000 ML IV SCH ×4 (07:07→22:40)
[2023-09-26 08:13] LABS: Basophils # (auto) 0.06 K/uL (0.00-0.20); Basophils % (auto) 0.7 %; Eosinophils # (auto) 0.15 K/uL (0.00-0.50); Eosinophils % (auto) 1.7 %; Hematocrit (blood only) 39.5 % (42.0-52.0); Hemoglobin 13.9 g/dl (14.0-18.0); Immature Granulocytes # (auto) 0.03 K/uL (0.01-0.20); Immature Granulocytes % (auto) 0.3 %; Lymphocytes # (auto) 2.84 K/uL (1.20-3.40); Lymphocytes % (auto) 33.1 %; Mean Corpuscular Hemoglobin 31.2 pg (25.0-34.0); Mean Corpuscular Hgb Conc 35.2 g/dL (32.0-36.0); Mean Corpuscular Volume 88.8 fL (80.0-100.0); Mean Platelet Volume 10.2 fL (9.4-12.4); Monocytes # (auto) 0.51 K/uL (0.11-0.59); Monocytes % (auto) 5.9 %; Neutrophils % (auto) 58.3 %; Platelet Count 213 K/uL (130-400); RDW Coefficient of Variation 13.2 % (11.5-14.5); RDW Standard Deviation 43.2 fL (36.4-46.3); Red Blood Count 4.45 M/uL (4.70-6.10); White Blood Count 8.59 K/ul (4.8-10.8)
[2023-09-26 08:27] LABS: BUN Creatinine Ratio 18.5 (10-20); Calcium 8.3 mg/dl (8.6-10.3); Creatinine Clr Calc Pharmacy 143.7 ml/min; Est GFR (African American) 136.3 ml/min; Est GFR (Non-African American) 117.6 ml/min; Magnesium 1.7 mg/dl (1.7-2.4); Potassium 4.1 mmol/L (3.5-5.1)
[2023-09-26 08:29] LABS: Prothrombin Time 11.1 Seconds (9.0-12.0)
[2023-09-26] MEDS: buPROPion SR 100 MG TABCR PO SCH (08:32)
[2023-09-26] MEDS: GABAPENTIN 300 MG CAP PO SCH ×2 (08:33→20:37)
[2023-09-26] MEDS: GABAPENTIN 100 MG CAP PO SCH ×2 (08:33→20:37)
[2023-09-26] MEDS: ESCITALOPRAM OXALATE 10 MG TAB PO SCH ×2 (08:33)
[2023-09-26] MEDS: PHENobarbitaL 30 MG TAB PO SCH ×2 (08:35→20:40)
[2023-09-26] MEDS: MAGNESIUM SULFATE / D5W 1 GM/100 ML BAG IV SCH ×2 (09:31→12:39)
[2023-09-26] MEDS: PHENobarbital sodium 65 MG/ML VIAL IV PRN (11:46)
[2023-09-26] MEDS ORDERED: PHENobarbital sodium 65 MG/ML VIAL IM PRN (12:12)
--- NOTE | 2023-09-26 14:26 | Hospitalist Progress Note ---
Date of Service September 26, 2023 Assessment & Plan (1) Alcohol withdrawal: Plan: Last drink on the night of 09/24; reportedly drank 30-35 drinks including vodka and 8% white claws (reports this is normal daily intake) -Ethyl alcohol level 294 in the ED. -Hx of alcohol withdrawal seizures, with the last being 3 months ago while on a Librium taper - Seizure precautions Phenobarbital load started in the ED; AWSS protocol with phenobarbital (prn switched to IM so patient can remain on PCU) Continue gabapentin, and Seroquel Continue Wellbutrin, as discontinuing Wellbutrin can precipitate seizures -Recommend that patient be weaned off Wellbutrin in the outpatient setting with hx of alcohol withdrawal seizures, and Wellbutrin can decrease seizure threshold Monitor electrolytes; maintain K>4, mag>2 -2g Mag ordered 09/26 (2) Depression with suicidal ideation: Plan: Patient reportedly called the crisis center on the night of 09/24, reporting that he was going to stab himself with a knife Hx of depression with SI, reports has ongoing depression with SI that arises every 1 to 2 months 1:1 observation until cleared by psych [facility] bed required Psychiatry consulted; patient is amenable to seeing psychiatry (3) Anxiety: Plan: Continue escitalopram Plan VTE PPx: Will defer for now Dispo: continued inpatient stay Admission and Anticipated Discharge Date Admission Date: September 25, 2023 Subjective Patient seeing lying in bed, 1:1 sitter present. Shortly before my exam, patient received Phenobarbital due to visual hallucinations. These have subsided. Patient is alert and oriented. Patient has gone through alcohol withdrawal multiple times, states that he can go a few month and then will relapse and start drinking again. Reports overall increasing anxiety the last few weeks, met with new soa architect at [facility] and she did not want to change his medications. His prior psychiatrist, Joss, no longer works there. States that he called crisis because was having thoughts of self harm, and states he would not act on them, but the thoughts scared him and then the electronic security technician were at his house. At present, feeling okay. Reports he is thirsty. Denies having pain anywhere. No shortness of breath. Review of Systems Review of Systems: All systems reviewed & are unremarkable except as noted in Subjective Physical Exam Physical Exam: General: WN/WD, moments of distress during interview where pt hides behinds blanket, poor eye contact VS as above Resp: normal respiratory effort, lungs clear to auscultation CV: RRR, no murmur, Abd: normal bowel sounds, non tender, no hepatosplenomegaly Extremities: Brisk movement, with hand tremor bilaterally Neuro: A&O x3, Psych: denies visual or auditory hallucinations at present Skin: intact, no lesions noted Results & Data Results & Data Vital Signs (Past 12 Hours) Vital Signs Temp Pulse Pulse Resp BP BP Pulse Ox 09/26/23 12:30 36.6 C 88 20 105/76 98 09/26/23 12:15 79 09/26/23 11:46 86 20 168/89 H 09/26/23 11:29 37.3 C 86 22 168/89 H 97 09/26/23 09:37 59 L 18 114/78 97 09/26/23 08:00 57 L 09/26/23 05:30 55 L 16 97/58 L 09/26/23 05:00 59 L 16 105/58 L 09/26/23 05:00 61 20 09/26/23 04:30 57 L 15 09/26/23 04:00 53 L 14 09/26/23 03:30 59 L 15 98/56 L 09/26/23 03:00 58 L 16 113/64 O2 Del Method 09/26/23 12:30 Room Air 09/26/23 12:15 09/26/23 11:46 09/26/23 11:29 Room Air 09/26/23 09:37 Room Air 09/26/23 08:00 09/26/23 05:30 09/26/23 05:00 09/26/23 05:00 09/26/23 04:30 09/26/23 04:00 09/26/23 03:30 09/26/23 03:00 Laboratory Results CBC, CMP, Mag reviewed PG Care Time/CCT Total # of Minutes Spent Total Time Spent with Patient: Total time spent is greater than 50% in coordination of care (as documented) at patient's floor/unit and/or counseling patient: Coding Level of Care Code 40552 SUB INP/OBS CARE 2/35MIN Diagnoses Alcohol withdrawal F10.930 Complication of substance-induced condition: uncomplicated Depression with suicidal ideation F32.A; R45.851 Anxiety F41.9 (1) Alcohol withdrawal Complication of substance-induced condition: uncomplicated Qualified Code(s): F10.930 - Alcohol use, unspecified with withdrawal, uncomplicated
--- NOTE | 2023-09-26 15:58 | Communication Note ---
Date of Service: September 26, 2023 Attempted to see patient on rounds but was sleeping, he similarly did not want to speak with liaison earlier in am. He is very familiar to our service from previous stays for similar behavior making SI/self harm gestures in the context of heavy excessive alcohol binge and then being resistant to rehab/etc while sober. My understanding is that his 302 warrant was denied due to intoxication. He has been hallucinating and experiencing withdrawal symptoms on med floor but cooperative with 1 on 1, etc. He is well aware of seizure risks with Wellbutrin and is on a low dose. Confirmed his dosing of his Seroquel and gapapentin with Surescripts as he follows at [facility].
[2023-09-26] MEDS: QUEtiapine FUMARATE 100 MG TABLET PO SCH (20:37)
[2023-09-27] MEDS: LACTATED RINGER'S 1,000 ML IV SCH ×3 (05:09→21:24)
[2023-09-27 06:48] LABS: Basophils # (auto) 0.04 K/uL (0.00-0.20); Basophils % (auto) 0.6 %; Eosinophils # (auto) 0.13 K/uL (0.00-0.50); Eosinophils % (auto) 1.9 %; Hematocrit (blood only) 41.6 % (42.0-52.0); Hemoglobin 14.7 g/dl (14.0-18.0); Immature Granulocytes # (auto) 0.02 K/uL (0.01-0.20); Immature Granulocytes % (auto) 0.3 %; Lymphocytes # (auto) 2.13 K/uL (1.20-3.40); Lymphocytes % (auto) 30.3 %; Mean Corpuscular Hgb Conc 35.3 g/dL (32.0-36.0); Mean Corpuscular Volume 87.8 fL (80.0-100.0); Mean Platelet Volume 10.1 fL (9.4-12.4); Monocytes # (auto) 0.49 K/uL (0.11-0.59); Neutrophils # (auto) 4.21 K/uL (1.40-6.50); Neutrophils % (auto) 59.9 %; Platelet Count 206 K/uL (130-400); RDW Coefficient of Variation 12.8 % (11.5-14.5); RDW Standard Deviation 41.1 fL (36.4-46.3); Red Blood Count 4.74 M/uL (4.70-6.10); White Blood Count 7.02 K/ul (4.8-10.8)
[2023-09-27 07:11] LABS: Albumin Globulin Ratio 1.4 (0.9-2); Albumin Level 3.7 gm/dl (3.4-5.0); BUN Creatinine Ratio 13.3 (10-20); Bilirubin,Total 0.8 mg/dl (0.2-1.0); Calcium 8.8 mg/dl (8.6-10.3); Creatinine Clr Calc Pharmacy 155.2 ml/min; Est GFR (African American) 140.7 ml/min; Est GFR (Non-African American) 121.4 ml/min; Globulin 2.6 gm/dl (2.5-4.0); Magnesium 1.9 mg/dl (1.7-2.4); Phosphorus 4.1 mg/dl (2.5-4.9); Potassium 4.1 mmol/L (3.5-5.1); Total Protein 6.3 gm/dl (6.0-8.3)
[2023-09-27] MEDS ORDERED: MAGNESIUM SULFATE / D5W 1 GM/100 ML BAG IV ONE (07:51)
[2023-09-27] MEDS: GABAPENTIN 100 MG CAP PO SCH ×2 (07:58→19:59)
[2023-09-27] MEDS: GABAPENTIN 300 MG CAP PO SCH ×2 (07:59→19:59)
[2023-09-27] MEDS: ESCITALOPRAM OXALATE 10 MG TAB PO SCH ×2 (07:59→08:00)
[2023-09-27] MEDS: buPROPion SR 100 MG TABCR PO SCH (07:59)
[2023-09-27] MEDS ORDERED: Ativan PO Alcohol Withdrawal--Active Protocol PO PRN (08:04)
[2023-09-27] MEDS ORDERED: LORazepam 1 MG TAB PO PRN ×3 (08:04)
[2023-09-27] MEDS ORDERED: chlordiazePOXIDE ALCOHOL WITHDRAWL 50MG PO STA (08:08)
[2023-09-27] MEDS: chlordiazePOXIDE HCl 25 MG CAP PO SCH ×3 (08:53→20:02)
[2023-09-27] MEDS ORDERED: PHENobarbitaL 30 MG TAB PO SCH (09:30)
--- NOTE | 2023-09-27 13:33 | Hospitalist Progress Note ---
Date of Service September 27, 2023 Assessment & Plan (1) Alcohol withdrawal: Plan: Last drink on the night of 09/24; reportedly drank 30-35 drinks including vodka and 8% white claws (reports this is normal daily intake) -Ethyl alcohol level 294 in the ED. -Hx of alcohol withdrawal seizures --> Seizure precautions Phenobarbital load started in the ED; AWSS protocol with phenobarbital (prn switched to IM so patient can remain on PCU) - Continued hallucinations 09/27 switched to Librium/Ativan protocol Continue gabapentin, and Seroquel Continue Wellbutrin, as discontinuing Wellbutrin can precipitate seizures -Recommend that patient be weaned off Wellbutrin in the outpatient setting with hx of alcohol withdrawal seizures, and Wellbutrin can decrease seizure threshold Monitor electrolytes; maintain K>4, mag>2 -2g Mag ordered 09/26 -1g Mag ordered 09/27 -Thiamine supplementation -Check B12 level (2) Depression with suicidal ideation: Plan: Patient reportedly called the crisis center on the night of 09/24, reporting that he was going to stab himself with a knife Hx of depression with SI, reports has ongoing depression with SI that arises every 1 to 2 months 1:1 observation until cleared by psych [facility] bed required Psychiatry consulted; patient is amenable to seeing psychiatry (3) Anxiety: Plan: Continue escitalopram Plan VTE PPx: Will continue to defer Dispo: continued inpatient stay Admission and Anticipated Discharge Date Admission Date: September 25, 2023 Supervising Physician Co-Signing Physician Notes Attending Attestation - Chart reviewed, care plan d/w MITA Rhodes. I agree with the abel components of her documentation. Carlos Boggs MD Subjective patient seen lying in bed. 1: 1 sitter present. Reports to me that he was having visual and auditory hallucinations this morning, with the change in medications those have resolved. feeling okay right now, states anxiety has decreased from this morning. States that his of 13 years left him about a month ago. However he does not think this is what caused him to relapse, thinks because he has been painting his house to prepare for use on air B&[employer] that he has been inhaling too many paint fumes that have been causing him to have worried thoughts. states that he is hopeful to return home and get his mind right after discharge, does not want to "be a victim of a rehab place" again. currently reports no pain, good appetite and urinating without issue. Tele: overnight NSR with PACs, 50-80s Review of Systems Review of Systems: All systems reviewed & are unremarkable except as noted in Subjective Physical Exam Physical Exam: General: WN/WD, improved eye contact from yesterday Resp: normal respiratory effort, lungs clear to auscultation CV: RRR, no murmur, Abd: normal bowel sounds, non tender, no hepatosplenomegaly Extremities: Moves all extremities, no hand tremor currently Neuro: A&O x3, Psych: denies visual or auditory hallucinations at present Skin: intact, no lesions noted Results & Data Results & Data Vital Signs (Past 12 Hours) Vital Signs Temp Pulse Resp BP Pulse Ox O2 Del Method 09/27/23 11:40 36.5 C 61 18 127/91 97 Room Air 09/27/23 04:33 36.7 C 61 18 135/78 95 Room Air Laboratory Results CBC, CMP and magnesium reviewed PG Care Time/CCT Total # of Minutes Spent Total Time Spent with Patient: Total time spent is greater than 50% in coordination of care (as documented) at patient's floor/unit and/or counseling patient: Coding Level of Care Code 72881 SUB INP/OBS CARE 2/35MIN Diagnoses Alcohol withdrawal F10.930 Complication of substance-induced condition: uncomplicated Depression with suicidal ideation F32.A; R45.851 Anxiety F41.9 (1) Alcohol withdrawal Complication of substance-induced condition: uncomplicated Qualified Code(s): F10.930 - Alcohol use, unspecified with withdrawal, uncomplicated
[2023-09-27] MEDS: QUEtiapine FUMARATE 100 MG TABLET PO SCH (19:59)
[2023-09-28] MEDS: chlordiazePOXIDE HCl 25 MG CAP PO SCH ×3 (01:46→17:43)
[2023-09-28] MEDS: LACTATED RINGER'S 1,000 ML IV SCH (05:32)
[2023-09-28 07:05] LABS: Basophils # (auto) 0.05 K/uL (0.00-0.20); Basophils % (auto) 0.7 %; Eosinophils % (auto) 2.8 %; Hematocrit (blood only) 43.4 % (42.0-52.0); Hemoglobin 14.9 g/dl (14.0-18.0); Immature Granulocytes # (auto) 0.03 K/uL (0.01-0.20); Immature Granulocytes % (auto) 0.4 %; Lymphocytes # (auto) 2.25 K/uL (1.20-3.40); Lymphocytes % (auto) 31.3 %; Mean Corpuscular Hemoglobin 30.8 pg (25.0-34.0); Mean Corpuscular Hgb Conc 34.3 g/dL (32.0-36.0); Mean Corpuscular Volume 89.7 fL (80.0-100.0); Mean Platelet Volume 10.2 fL (9.4-12.4); Neutrophils # (auto) 4.15 K/uL (1.40-6.50); Neutrophils % (auto) 57.8 %; Platelet Count 203 K/uL (130-400); RDW Coefficient of Variation 12.9 % (11.5-14.5); RDW Standard Deviation 42.7 fL (36.4-46.3); Red Blood Count 4.84 M/uL (4.70-6.10); White Blood Count 7.18 K/ul (4.8-10.8)
[2023-09-28 07:21] LABS: Magnesium 2.1 mg/dl (1.7-2.4)
[2023-09-28 08:51] LABS: BUN Creatinine Ratio 13.3 (10-20); Calcium 8.9 mg/dl (8.6-10.3); Creatinine Clr Calc Pharmacy 155.2 ml/min; Est GFR (African American) 140.7 ml/min; Est GFR (Non-African American) 121.4 ml/min; Potassium 3.9 mmol/L (3.5-5.1)
[2023-09-28] MEDS: GABAPENTIN 100 MG CAP PO SCH ×2 (09:30→19:46)
[2023-09-28] MEDS: THIAMINE HCL 100 MG TAB PO SCH (09:30)
[2023-09-28] MEDS: ESCITALOPRAM OXALATE 10 MG TAB PO SCH ×2 (09:30→09:31)
[2023-09-28] MEDS: GABAPENTIN 300 MG CAP PO SCH ×2 (09:30→19:46)
[2023-09-28] MEDS: buPROPion SR 100 MG TABCR PO SCH (09:31)
--- NOTE | 2023-09-28 14:50 | Hospitalist Progress Note ---
Date of Service September 28, 2023 Assessment & Plan (1) Alcohol withdrawal: Plan: Last drink on the night of 09/24; reportedly drank 30-35 drinks including vodka and 8% white claws (reports this is normal daily intake) -Ethyl alcohol level 294 in the ED. -Hx of alcohol withdrawal seizures --> Seizure precautions Phenobarbital load started in the ED; AWSS protocol with phenobarbital (prn switched to IM so patient can remain on PCU) - Continued hallucinations 09/27 switched to Librium/Ativan protocol -09/28 discontinued Ativan, has not needed since am of 09/27 Continue gabapentin, and Seroquel Continue Wellbutrin, as discontinuing Wellbutrin can precipitate seizures -Recommend that patient be weaned off Wellbutrin in the outpatient setting with hx of alcohol withdrawal seizures, and Wellbutrin can decrease seizure threshold Monitor electrolytes; maintain K>4, mag>2 -Thiamine supplementation (2) Depression with suicidal ideation: Plan: Patient reportedly called the crisis center on the night of 09/24, reporting that he was going to stab himself with a knife Hx of depression with SI, reports has ongoing depression with SI that arises every 1 to 2 months -09/28 Reports no active SI - 1:1 removed -Psychiatry consulted; patient is amenable to seeing psychiatry (3) Anxiety: Plan: Continue escitalopram Plan Dispo: continued inpatient stay, medically stable Admission and Anticipated Discharge Date Admission Date: September 25, 2023 Supervising Physician Co-Signing Physician Notes Attending Attestation - Chart reviewed, care plan d/w MITA Rhodes. I agree with the abel components of her documentation. Carlos Boggs MD Subjective Patient lying in bed. Reports feeling anxious, but at his baseline. Denies suicidal thought. Denies pain. Reports good appetite. Again not wanting inpatient placement as he is hoping to be able to go home and continue to follow with his psychiatrists. Also states he has a very very important appointment tomorrow at 1pm, but would not tell me what this is for. Review of Systems Review of Systems: All systems reviewed & are unremarkable except as noted in Subjective Physical Exam Physical Exam: General: WN/WD, NAD, VS as above Resp: normal respiratory effort, lungs clear to auscultation CV: RRR, no murmur, Abd: normal bowel sounds, non tender, no hepatosplenomegaly Extremities: Moves all extremities, no edema Neuro/psych: A&O x3, denies visual and auditory hallucinations Skin: intact, no lesions noted Results & Data Results & Data Vital Signs (Past 12 Hours) Vital Signs Temp Pulse Pulse Resp BP Pulse Ox O2 Del Method 09/28/23 12:08 36.9 C 83 18 118/75 96 Room Air 09/28/23 07:19 57 L 09/28/23 04:00 36.9 C 69 16 121/80 95 Room Air Laboratory Results CBC and CMP and magnesium level reviewed PG Care Time/CCT Total # of Minutes Spent Total Time Spent with Patient: Total time spent is greater than 50% in coordination of care (as documented) at patient's floor/unit and/or counseling patient: Coding Level of Care Code 85481 SUB INP/OBS CARE 2/35MIN Diagnoses Alcohol withdrawal F10.930 Complication of substance-induced condition: uncomplicated Depression with suicidal ideation F32.A; R45.851 Anxiety F41.9 (1) Alcohol withdrawal Complication of substance-induced condition: uncomplicated Qualified Code(s): F10.930 - Alcohol use, unspecified with withdrawal, uncomplicated
[2023-09-28] MEDS ORDERED: POTASSIUM CHLORIDE CRTAB 20 MEQ TABCR PO STA (14:51)
--- NOTE | 2023-09-28 15:40 | Psychiatric Consultation ---
Date of Consultation September 28, 2023 Impression / Recommendations Impression 33 yo male with severe AUD as above, presented on 302 warrant for SI which was dispositioned as intoxicated, now through detox and no evidence of psychosis, leigh ann, or delirium interfering with his decision making. (1) Alcohol use disorder: Plan he is aware our recommendation remains a longer term inpatient rehab program with sober living environment given severity of use and risk of he is more engaged in treatment and med management than previous and prefers continue with his outpatient providers who would determine if he is a candidate for Vivitrol, etc. no indication for involuntary commitment under [place] mental health law CPT Code Overall, I spent a total of 45 minutes with this case, including review of chart, direct evaluation of the patient, counseling the patient, coordination with nursing,coordination of care with hospitalist service. Psych History Identifying Data 33 yo male with hx of severe AUD with associated mood disorder, repeated hospitalizations at [facility] and poor compliance with recs for alcohol rehab. Chief Complaint medical clearance imminent History of Present Illness as per initial chart review: Date of Service: September 26, 2023 Attempted to see patient on rounds but was sleeping, he similarly did not want to speak with liaison earlier in am. He is very familiar to our service from previous stays for similar behavior making SI/self harm gestures in the context of heavy excessive alcohol binge and then being resistant to rehab/etc while sober. My understanding is that his 302 warrant was denied due to intoxication. He has been hallucinating and experiencing withdrawal symptoms on med floor but cooperative with 1 on 1, etc. He is well aware of seizure risks with Wellbutrin and is on a low dose. Confirmed his dosing of his Seroquel and gapapentin with Surescripts as he follows at [facility]. as per liaison: Met with patient for consult service. He is A&Ox3, able to answe r questions appropriately. His affect is bright with euthymic mood. Patient reports recent relapse on ETOH and was on a "4 day binge". He has had several months of sobriety with small relapses in the past year. Historically, prior to this past year, patient has not been able to maintain more than several days of sobriety. Patient reports "actually feeling happier than I ever have but I talked to Hope (ex-) and I probably shouldn't have done that". He also identifies missing his dog, whom lives with ex- in [place]. Patient reports following with [facility] for psych med management; he feels his med regimen (Wellbutrin, Lexapro, and Seroquel) is very effective and wishes to continue this. He has a follow-up appointment with [facility] on 10/12/2023 @ 1500. Patient continues to deny SI, remains future oriented. He is able to verbally complete a safety plan including warning signs, coping skills alone and with others as well as list personal and professional supports. Patient to be seen by psychiatrist today. Today the patient is clear, despite his need for this hospitalization, I agree he is functioning the best I've seen him in that longest periods of sobriety (4 months) and able to have some distance from who also suffers from AUD (she is also bipolar). 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 He is eating more consistently and using gym three times a week to assist coping. Allergies Allergy/AdvReac Type Severity Reaction Status Date / Time bupropion [From Wellbutrin] AdvReac Severe anxiety, Verified 11/08/22 11:55 confussion buspirone [From BuSpar] AdvReac Intermediate Shaking/john Verified 11/08/22 11:55 mor gluten AdvReac Intermediate Gastrointestinal Verified 11/08/22 11:55 Upset gabapentin AdvReac Unknown Shakiness Verified 11/08/22 11:55 lactose AdvReac Unknown Gastrointestinal Verified 11/22/22 16:44 Upset antihistamines AdvReac Intermediate "Just Uncoded 11/08/22 11:55 Don't Feel Right When I Take Them" Home Medications Medication Instructions Recorded Confirmed Type bupropion HCl 100 mg tablet,12 hr 100 mg PO QAM 09/25/23 09/25/23 History sustained-release escitalopram oxalate 10 mg tablet 10 mg PO QAM 09/25/23 09/25/23 History escitalopram oxalate 5 mg tablet 5 mg PO QAM 09/25/23 09/25/23 History gabapentin 100 mg capsule 100 mg PO BID 09/25/23 09/25/23 History gabapentin 300 mg capsule 300 mg PO BID 09/25/23 09/25/23 History quetiapine 100 mg tablet 100 mg PO HS 09/25/23 09/25/23 History Patient History Medical History COVID-19 Transaminitis Acid reflux Suicidal ideations Tobacco abuse Post traumatic stress disorder (PTSD) Anxiety disorder, unspecified Homicidal ideation Depression with suicidal ideation Alcohol intoxication 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 Suicidal behavior Elevated liver enzymes Self-harming behavior Post traumatic stress disorder (PTSD) BRITTNY (generalized anxiety disorder) Alcohol use disorder, severe, dependence Diplopia Anxiety and depression Alcohol use disorder Depressive disorder Suicidal ideation Alcoholic hepatitis Lab test negative for COVID-19 virus Chest pain Alcohol abuse No pertinent family history Alcohol abuse with alcohol-induced anxiety disorder BRITTNY (generalized anxiety disorder) Left leg cellulitis Hypokalemia Abdominal pain Acute sinusitis Headache Dizziness Pain, dental Surgical History No pertinent past surgical history Family History Mother Other No significant family history Denies family history of Ovarian cancer Prostate cancer Myocardial infarction Breast cancer Colorectal cancer Hypertension Social History (Updated 09/28/23 @ 15:44 by Angie Carrillo MD) Smoking Status: Current every day smoker Tobacco Type: Cigarettes Cigarettes Per Day: 1 PPD; Second Hand Exposure: No; Do You Dip or Chew Tobacco: No; Hx Alcohol Use: Yes Alcohol type: hard liquor Hx Substance Use: No Preferred Language: [place] Communication Ability: Effective Visual Impairment: No Limitations Hearing Ability: Normal Tipple Mechanic Required: No Beliefs That Will Affect Care: None marital status: marital status details: Current Living Situation: Alone current occupational status: employed How many Children do You have: 1 Feels Safe at Home: Yes Childhood Exposure to Second-Hand Smoke: No Diet: regular Dental Care, Regularly: Yes Physical Activity Frequency: Daily Seatbelt Use: always Sunscreen Use: No Assistive Devices: None Physical Exam Psychiatric: Orientation: alert and oriented x 3 Apperance: appropriately dressed and appropriately groomed Eye Contact: good eye contact Motor Behavior: no abnormal motor movements Speech: normal rate/rhythm/volume of speech Affect: euthymic affect Mood: no depressed mood Thought Process: goal directed thought process Thought Content: reality based without delusions Suicidal Thoughts: denies suicidal thoughts Homicidal Thoughts: denies homicidal thoughts Hallucinations: no auditory hallucinations and no visual hallucinations Cognition: attention grossly intact and language grossly intact Estimated Intelligence: consistent with education level Insight: + fair insight Vital Signs (Past 24 Hours): Last Vital Signs Temp 36.7 C 09/28/23 15:29 Pulse 66 09/28/23 15:29 Resp 17 09/28/23 15:29 BP 143/76 H 09/28/23 15:29 Pulse Ox 97 09/28/23 15:29 O2 Del Method Room Air 09/28/23 15:29 Results & Data (PSY) Medications Administered Bupropion HCl (Bupropion Sr 100 Mg Tabcr) 100 mg PO [facility] Stop: 10/26/23 08:59 Last Admin: 09/28/23 09:31 Dose: 100 mg Documented By: [facility] Admin: 09/27/23 07:59 Dose: 100 mg Documented By: [facility] Admin: 09/26/23 08:32 Dose: 100 mg Documented By: ROSS Chlordiazepoxide HCl (Chlordiazepoxide Hcl 25 Mg Cap) 50 mg PO [facility] Stop: 09/29/23 02:31 Last Admin: 09/28/23 09:35 Dose: 50 mg Documented By: MINGO Escitalopram Oxalate (Escitalopram Oxalate 10 Mg Tab) 10 mg PO [facility] Stop: 10/26/23 08:59 Last Admin: 09/28/23 09:31 Dose: 10 mg Documented By: [facility] Admin: 09/27/23 07:59 Dose: 10 mg Documented By: [facility] Admin: 09/26/23 08:33 Dose: 10 mg Documented By: ROSS Escitalopram Oxalate (Escitalopram Oxalate 10 Mg Tab) [facility] Stop: 10/26/23 08:59 Last Admin: 09/28/23 09:30 Dose: 5 mg Documented By: [facility] Admin: 09/27/23 08:00 Dose: 5 mg Documented By: [facility] Admin: 09/26/23 08:33 Dose: 5 mg Documented By: ROSS Gabapentin (Gabapentin 300 Mg Cap) 300 mg PO BID [facility] Stop: 10/25/23 20:59 Last Admin: 09/28/23 09:30 Dose: 300 mg Documented By: [facility] Admin: 09/27/23 19:59 Dose: 300 mg Documented By: [facility] Admin: 09/27/23 07:59 Dose: 300 mg Documented By: [facility] Admin: 09/26/23 20:37 Dose: 300 mg Documented By: Admin: 09/26/23 08:33 Dose: 300 mg Documented By: Admin: 09/25/23 20:29 Dose: 300 mg Documented By: MIN Gabapentin (Gabapentin 100 Mg Cap) 100 mg PO BID [facility] Stop: 10/25/23 20:59 Last Admin: 09/28/23 09:30 Dose: 100 mg Documented By: [facility] Admin: 09/27/23 19:59 Dose: 100 mg Documented By: [facility] Admin: 09/27/23 07:58 Dose: 100 mg Documented By: Admin: 09/26/23 20:37 Dose: 100 mg Documented By: Admin: 09/26/23 08:33 Dose: 100 mg Documented By: Admin: 09/25/23 20:30 Dose: 100 mg Documented By: MIN Ondansetron HCl (Ondansetron Inj 2 Mg/Ml 2 Ml Vial) 4 mg IV Q6H PRN PRN Reason: Nausea Stop: 10/25/23 18:16 Last Admin: 09/27/23 20:03 Dose: 4 mg Documented By: [facility] Quetiapine Fumarate (Quetiapine Fumarate 100 Mg Tablet) 100 mg PO [facility] Stop: 10/25/23 20:59 Last Admin: 09/27/23 19:59 Dose: 100 mg Documented By: [facility] Admin: 09/26/23 20:37 Dose: 100 mg Documented By: Admin: 09/25/23 20:30 Dose: 100 mg Documented By: MIN Thiamine HCl (Thiamine Hcl 100 Mg Tab) [facility] Stop: 10/28/23 08:59 Last Admin: 09/28/23 09:30 Dose: 100 mg Documented By: [facility] Coding Level of Care Code 87957 [facility] Intl Hosp Care Lvl 2 Diagnoses Alcohol use disorder F19.90
[2023-09-28] MEDS: QUEtiapine FUMARATE 100 MG TABLET PO SCH (19:46)
[2023-09-28] MEDS ORDERED: PHENobarbitaL 30 MG TAB PO SCH (21:30)
[2023-09-29] MEDS: chlordiazePOXIDE HCl 25 MG CAP PO SCH (02:33)
[2023-09-29] MEDS: GABAPENTIN 100 MG CAP PO SCH (07:34)
[2023-09-29 07:35] LABS: BUN Creatinine Ratio 17.6 (10-20); Calcium 9.3 mg/dl (8.6-10.3); Creatinine Clr Calc Pharmacy 157.3 ml/min; Est GFR (African American) 141.5 ml/min; Est GFR (Non-African American) 122.1 ml/min; Magnesium 2.3 mg/dl (1.7-2.4); Potassium 3.6 mmol/L (3.5-5.1)
[2023-09-29] MEDS: GABAPENTIN 300 MG CAP PO SCH (07:35)
[2023-09-29] MEDS: buPROPion SR 100 MG TABCR PO SCH (07:35)
[2023-09-29] MEDS: ESCITALOPRAM OXALATE 10 MG TAB PO SCH ×2 (07:35→07:36)
[2023-09-29] MEDS: THIAMINE HCL 100 MG TAB PO SCH (07:36)
[2023-09-29] MEDS ORDERED: POTASSIUM CHLORIDE CRTAB 20 MEQ TABCR PO STA (07:48)
--- NOTE | 2023-09-29 09:28 | Discharge Summary ---
Discharge Summary Date of Service September 29, 2023 Notes For Next Care Provider -Will continue Librium taper for 6 days -Continue current anxiety regiment Medication Changes From Visit -Librium taper over the next 6 days Admission HPI Per Admitting Provider Chun is a 33-year-old male with PMH of alcohol use disorder, depression with suicidal ideations, and anxiety. He presented after calling the crisis center with suicidal ideations. He was intoxicated and reportedly had a knife, saying that he was going to stab himself/cut himself. He was brought in via police and a 302 was signed in the ED. Ethyl alcohol level was 294 on arrival. He reports that he drank 30-35 drinks the night of 09/24, which was 16 hours prior to admission. He drinks 8% white claws and vodka, and regularly drinks 30 drinks per day. He is amenable to speaking with psychiatry while inpatient. He reports that he has suicidal ideations that are triggered every 1 to 2 months. Last time he had them he reports that he cut himself. He reports a history of seizures related to alcohol withdrawal, with the last seizure on a Librium taper 3 months ago; no history of seizures outside of alcohol withdrawal. Patient did not take his morning medications. He reports a recent change in Seroquel from 50mg --> 100 mg daily; this was changed last week. At time of admission, patient endorses visual/auditory hallucinations. He reports that he can see angels, and hear echoes. He also reports that something keeps "coming after him". Patient denies any recent falls, or head trauma. Vitals are stable at time of admission. ED course: Lorazepam 1 mg IV ROS: Patient endorses DECKER, visual/auditory hallucinations, sweating, tremors, dizziness, and lightheadedness. Patient denies chest pain, SOB, abdominal pain, N/V/D, or urinary symptoms. Principal Dx & Hospital Course #1 = Principal Diagnosis (1) Alcohol withdrawal: Last drink on the night of 09/24; reportedly drank 30-35 drinks including vodka and 8% white claws (reports this is normal daily intake) -Ethyl alcohol level 294 in the ED. -Hx of alcohol withdrawal seizures --> No seizures during his stay Phenobarbital load started in the ED; AWSS protocol with phenobarbital, switched to Librium protocol on 09/27 -Will continue Librium taper outpatient for 6 days Continue gabapentin, and Seroquel Continue Wellbutrin, pt aware that Wellbutrin can decrease seizure threshold Potassium and Magnesium replaced. Continue Vit B1 supplementation (2) Depression with suicidal ideation: Patient reportedly called the crisis center on the night of 09/24, reporting that he was going to stab himself with a knife Hx of depression with SI, reports has ongoing depression with SI that arises every 1 to 2 months -Denies current SI or homicidal thoughts -Psychiatry consulted; patient is amenable to seeing psychiatry --> does not require involuntary inpatient rehab. - Has outpatient follow up scheduled 10/12 (3) Anxiety: Continue escitalopram Plan Discharge to home with Librium taper and outpatient follow up Discharge Exam General: WN/WD, NAD, VS as above Resp: normal respiratory effort, lungs clear to auscultation CV: RRR, no murmur, Extremities: Moves all extremities, no edema Neuro/psych: A&O x3, denies visual and auditory hallucinations. Denies SI Skin: intact, no lesions noted Updated Medication List Medication Instructions Recorded Confirmed Type bupropion HCl 100 mg tablet,12 hr 100 mg PO QAM 09/25/23 09/25/23 History sustained-release escitalopram oxalate 10 mg tablet 10 mg PO QAM 09/25/23 09/25/23 History escitalopram oxalate 5 mg tablet 5 mg PO QAM 09/25/23 09/25/23 History gabapentin 100 mg capsule 100 mg PO BID 09/25/23 09/25/23 History gabapentin 300 mg capsule 300 mg PO BID 09/25/23 09/25/23 History quetiapine 100 mg tablet 100 mg PO HS 09/25/23 09/25/23 History chlordiazepoxide HCl 25 mg capsule See Taper PO Q8H #12 caps 09/29/23 Rx Hospital Stay Data Consultations 09/25/23 14:57 ED Decision to Admit Stat 09/25/23 18:17 Consult Psychiatry Routine Pending Results Patient Have Any Pending Studies at Discharge: No Discharge Instructions Given to Patient (Per Discharging Provider) Mr. Block, You were admitted to the hospital for alcohol withdrawal and suicidal ideations. During your stay we placed you on a Librium taper, which you will continue outpatient over the next few days. While we encourage you to remain sober, if you do drink alcohol STOP taking the Librium. We made no changes to your Wellbutrin, Lexapro or Gabapentin while you were here. Please continue to take these. You have an appointment schedule with [facility] on 10/12/2023 @ 3:00pm. It is very important you attend this. You can discuss with them if you are a candidate for Vivitrol, which will help aide in sobriety. You should also take Vitamin B1 and B12 supplements at home. If you have new or worsening symptoms, please contact your psychiatrist or return the to ER. It was our pleasure taking care of you, Hope Rhodes PA-C Total Time Total Time Spent Total Time Spent (In Minutes): 35 Supervising Physician Co-Signing Physician Notes Attending Attestation and Discharge Note: Pt seen/examined, chart reviewed, discharge care plan d/w MITA Rhodes. I agree with the abel components of her documentation. 33yo male who presented with alcohol intoxication which was then followed by etoh withdrawal while hospitalized. Received phenobarbital/librium/ativan for his withdrawal. He had suicidal ideation prior to admission. Seen by psychiatry while here - no admission to the [facility] was needed nor advised. Psychiatry felt he was no longer suicidal and was safe for discharge with outpatient psych follow-up. He will complete a short librium taper upon discharge home. Has psych follow-up on 10/12/23. Discharge exam: gen - NAD, pleasant mouth - MMM heart - RRR, s1 s2, no murmur lungs - CTA b/l abd - soft NT ND BS+ ext - no edema, pulses 2+ b/l neuro - no tremors or signs of etoh withdrawal psych - a/o x 3 Carlos Boggs MD Coding Level of Care Code 73553 INP/OBS DISCH >30 MIN Diagnoses Alcohol withdrawal F10.930 Complication of substance-induced condition: uncomplicated Depression with suicidal ideation F32.A; R45.851 Anxiety F41.9
[2023-09-29] MEDS ORDERED: chlordiazePOXIDE HCl 25 MG CAP PO SCH (10:30)
== END 2023-09-29 11:30 | disposition home or self-care (01) | DRG 897 ==
LOC: ED 11:58 → EDINP 15:42 → SUATTDRO 15:42 → EDINP 18:18 → 2E 09-26 11:41

== ENCOUNTER 2023-11-12 21:37 | Inpatient (IN) ==
[2023-11-12 22:57] LABS: Appearance Urine Clear (Clear); Bilirubin Urine Negative (Negative); Blood Urine Negative (Negative); Color Urine Yellow; Glucose Urine UA Negative (Negative); Ketones Urine Negative (Negative); Leukocyte Esterase Urine Negative (Negative); Nitrite Urine Negative (Negative); Protein Urine Negative (Negative); Specific Gravity Urine 1.007 (1.000-1.030); Urobilinogen Urine Negative (Negative); pH Urine 7.5 (4.5-7.5)
[2023-11-12 22:58] LABS: Basophils # (auto) 0.06 K/uL (0.00-0.20); Basophils % (auto) 0.6 %; Eosinophils # (auto) 0.09 K/uL (0.00-0.50); Eosinophils % (auto) 0.9 %; Hematocrit (blood only) 45.3 % (42.0-52.0); Hemoglobin 15.3 g/dl (14.0-18.0); Immature Granulocytes # (auto) 0.06 K/uL (0.01-0.20); Immature Granulocytes % (auto) 0.6 %; Lymphocytes # (auto) 3.52 K/uL (1.20-3.40); Lymphocytes % (auto) 34.7 %; Mean Corpuscular Hemoglobin 30.4 pg (25.0-34.0); Mean Corpuscular Hgb Conc 33.8 g/dL (32.0-36.0); Mean Corpuscular Volume 89.9 fL (80.0-100.0); Monocytes # (auto) 0.51 K/uL (0.11-0.59); Neutrophils # (auto) 5.91 K/uL (1.40-6.50); Neutrophils % (auto) 58.2 %; Platelet Count 269 K/uL (130-400); RDW Coefficient of Variation 12.6 % (11.5-14.5); RDW Standard Deviation 41.5 fL (36.4-46.3); Red Blood Count 5.04 M/uL (4.70-6.10); White Blood Count 10.15 K/ul (4.8-10.8)
[2023-11-12 23:18] LABS: Alanine Aminotransferase 19 U/L (7-52); Albumin Globulin Ratio 1.2 (0.9-2); Albumin Level 4.3 gm/dl (3.4-5.0); Alkaline Phosphatase 67 U/L (34-104); Anion Gap 12 (3-11); Aspartate Aminotransferase 31 U/L (13-39); BUN Creatinine Ratio 16.2 (10-20); Bilirubin,Total 0.4 mg/dl (0.2-1.0); Blood Urea Nitrogen 12 mg/dl (6-23); Calcium 8.9 mg/dl (8.6-10.3); Carbon Dioxide 25 mmol/L (21-32); Chloride 107 mmol/L (98-107); Est GFR (African American) 141.5 ml/min; Est GFR (Non-African American) 122.1 ml/min; Globulin 3.7 gm/dl (2.5-4.0); Glucose 91 mg/dl (70-99(Fasting)); Potassium 3.5 mmol/L (3.5-5.1); Sodium 144 mmol/L (136-145)
[2023-11-12 23:22] LABS: Amphetamines+Metham, Urine Neg (Neg); Barbiturates, Urine Neg (Neg); Benzodiazepine, Urine Neg (Neg); Cocaine, Urine Neg (Neg); MDMA (Ecstacy), Urine Neg (Neg); Marijuana, Urine Neg (Neg); Methadone, Urine Neg (Neg); Opiate, Urine Neg (Neg); Phencyclidine, Urine Neg (Neg)
[2023-11-12 23:26] LABS: Acetaminophen < 3 ug/ml (10-30); Salicylate < 3.0 mg/dl (3.0-30)
[2023-11-12 23:32] LABS: Thyroid Stimulating Hormone 1.966 uIu/ml (0.300-4.500)
--- NOTE | 2023-11-12 23:53 | Emergency Department Note ---
Impression & Plan Alcohol intoxication ED Provider Note HISTORY OF PRESENT ILLNESS: Patient is a 33-year-old male presenting for "I need help." Patient is a poor historian secondary to his obvious alcohol intoxication. Per report from EMS, the patient's brother called 911 because the patient was potentially cutting himself. Patient had disclosed to EMS that he wanted to end his life. However, on my assessment the patient does not answer if he is suicidal. He just continues to report that "I need help." He reports that he has been drinking almost 1/5 of liquor a day. He keeps stating "I am going through withdrawal." Reports his last drink was this morning. ROS: as above PHYSICAL EXAM: Constitutional: Patient appears in no acute distress. HENT: Head: Normocephalic and atraumatic. Eyes: EOMI, PERRL Mouth/Throat: Mucous membranes moist. Neck: Trachea midline. Neck supple. Musculoskeletal: No edema, tenderness or deformity noted. Skin: Warm and dry. No rash, erythema, pallor or cyanosis Psychiatric: Appropriate mood and affect for situation. Neurological: Alert. CN II-XII grossly intact, moving all extremities equally and fully. MDM: - Vitals signs stable. - History obtained via patient and EMS, given patient's intoxication. Patient presents for mental health evaluation. EMS states that the patient's brother called 911 because the patient was potentially cutting himself and stating that he wanted to end his life. However, patient does not actively express suicidal ideation on my assessment. He states that "I need help" and reports that he needs help through his alcohol withdrawal. Reports his last drink was this morning. - Chronic conditions affecting care: Alcoholism - Differential diagnoses include, but are not limited to: drug overdose; alcohol intoxication; UTI; electrolyte abnormality - External medical records reviewed. - Laboratory workup interpreted by myself showed normal WBC; stable electrolytes; slightly elevated anion gap (12); normal TSH; negative salicylate/acetaminophen levels; elevated ethanol (305.2) - COVID negative - UA negative for infection - UDS negative - Patient is still too clinically intoxicated to provide a good story at this time. Will need to be re-assessed for clinical sobriety and reassess his possible suicidal ideation. - Prior to disposition, care of patient was checked out to Dr. Sumner following a discussion of the patient's course. 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 Elevated liver enzymes Post traumatic stress disorder (PTSD) Alcohol use disorder, severe, dependence Diplopia Anxiety and depression Alcohol use disorder Depressive disorder Alcoholic hepatitis Lab test negative for COVID-19 virus Alcohol abuse No pertinent family history BRITTNY (generalized anxiety disorder) Left leg cellulitis Hypokalemia Headache Dizziness Surgical History No pertinent past surgical history Family History Mother Other No significant family history Denies family history of Ovarian cancer Prostate cancer Myocardial infarction Breast cancer Colorectal cancer Hypertension Social History (Updated 09/28/23 @ 15:44 by Angie Carrillo MD) Smoking Status: Unknown if ever smoked Tobacco Type: Cigarettes Cigarettes Per Day: 1 PPD; Second Hand Exposure: No; Do You Dip or Chew Tobacco: No; Hx Alcohol Use: Yes Alcohol type: hard liquor Hx Substance Use: No Preferred Language: Zimbabwean Communication Ability: Effective Visual Impairment: No Limitations Hearing Ability: Normal Instructional Designer Required: No Beliefs That Will Affect Care: None marital status: marital status details: Current Living Situation: Alone current occupational status: employed How many Children do You have: 1 Feels Safe at Home: Yes Childhood Exposure to Second-Hand Smoke: No Diet: regular Dental Care, Regularly: Yes Physical Activity Frequency: Daily Seatbelt Use: always Sunscreen Use: No Assistive Devices: None Allergies Allergies Allergy/AdvReac Type Severity Reaction Status Date / Time bupropion [From Wellbutrin] AdvReac Severe anxiety, Verified 10/04/23 10:20 confussion buspirone [From BuSpar] AdvReac Intermediate Shaking/john Verified 10/04/23 10:20 mor gluten AdvReac Intermediate Gastrointestinal Verified 10/04/23 10:20 Upset gabapentin AdvReac Unknown Shakiness Verified 10/04/23 10:20 lactose AdvReac Unknown Gastrointestinal Verified 10/04/23 10:20 Upset antihistamines AdvReac Intermediate "Just Uncoded 10/04/23 10:20 Don't Feel Right When I Take Them" Home Meds Home Medications Medication Instructions Recorded Confirmed bupropion HCl 100 mg tablet,12 hr 100 mg PO QAM 09/25/23 10/04/23 sustained-release escitalopram oxalate 10 mg tablet 10 mg PO QAM 09/25/23 10/04/23 escitalopram oxalate 5 mg tablet 5 mg PO QAM 09/25/23 10/04/23 gabapentin 100 mg capsule 100 mg PO BID 09/25/23 10/04/23 gabapentin 300 mg capsule 300 mg PO BID 09/25/23 10/04/23 quetiapine 100 mg tablet 100 mg PO HS 09/25/23 10/04/23 pseudoephedrine HCl [Sudafed 12 PO PRN 10/04/23 10/04/23 Hour] Previous Rx's Medication Instructions Recorded chlordiazepoxide HCl 25 mg capsule See Taper PO Q8H #12 caps 09/29/23 Results & Data (ED) Vital Signs Vital Signs - 24 hr 11/12/23 21:46 Pulse Rate 90 Respiratory Rate 18 Respiratory Effort / Characteristics Non-Labored Spontaneous Respiratory Depth Normal Respiratory Pattern Regular Blood Pressure 128/79 Blood Pressure Mean 95 Pulse Oximetry 95 Oxygen Delivery Method Room Air Sepsis Recent Fever Within 48 Hours No Sepsis New/Unexplained Change in Mental Status N/A Sepsis Action Taken by Nursing No Action Required Laboratory Data 11/12/23 22:15 11/12/23 22:15 Lab Results 11/12/23 11/12/23 11/12/23 Range/Units 22:15 22:25 22:29 WBC 10.15 (4.8-10.8) K/ul RBC 5.04 (4.70-6.10) M/uL Hgb 15.3 (14.0-18.0) g/dl Hct 45.3 (42.0-52.0) % MCV 89.9 (80.0-100.0) fL MCH 30.4 (25.0-34.0) pg MCHC 33.8 (32.0-36.0) g/dL RDW Std Deviation 41.5 (36.4-46.3) fL RDW Coeff of Bryanna 12.6 (11.5-14.5) % Plt Count 269 (130-400) K/uL MPV 10.0 (9.4-12.4) fL Immature Gran % (Auto) 0.6 % Neut % (Auto) 58.2 % Lymph % (Auto) 34.7 % [place] % (Auto) 5.0 % Eos % (Auto) 0.9 % Baso % (Auto) 0.6 % Neut # (Auto) 5.91 (1.40-6.50) K/uL Lymph # (Auto) 3.52 H (1.20-3.40) K/uL [place] # (Auto) 0.51 (0.11-0.59) K/uL Eos # (Auto) 0.09 (0.00-0.50) K/uL Baso # (Auto) 0.06 (0.00-0.20) K/uL Immature Gran # (Auto) 0.06 (0.01-0.20) K/uL Sodium 144 (136-145) mmol/L Potassium 3.5 (3.5-5.1) mmol/L Chloride 107 (98-107) mmol/L Carbon Dioxide 25 (21-32) mmol/L Anion Gap 12 H (3-11) BUN 12 (6-23) mg/dl Creatinine 0.74 (0.6-1.4) mg/dl Est Cr Clr Drug Dosing Not Reportable Est GFR ( Amer) 141.5 ml/min Est GFR (Non-Af Amer) 122.1 ml/min BUN/Creatinine Ratio 16.2 (10-20) Glucose 91 (70-99(Fasting)) mg/dl Calcium 8.9 (8.6-10.3) mg/dl Total Bilirubin 0.4 (0.2-1.0) mg/dl AST 31 (13-39) U/L ALT 19 (7-52) U/L Alkaline Phosphatase 67 (34-104) U/L Total Protein 8.0 (6.0-8.3) gm/dl Albumin 4.3 (3.4-5.0) gm/dl Globulin 3.7 (2.5-4.0) gm/dl Albumin/Globulin Ratio 1.2 (0.9-2) TSH 1.966 (0.300-4.500) uIu/ml Urine Color Yellow Urine Appearance Clear (Clear) Urine pH 7.5 (4.5-7.5) Ur Specific [place] 1.007 (1.000-1.030) Urine Protein Negative (Negative) Urine Glucose (UA) Negative (Negative) Urine Ketones Negative (Negative) Urine Blood Negative (Negative) Urine Nitrite Negative (Negative) Urine Bilirubin Negative (Negative) Urine Urobilinogen Negative (Negative) Ur Leukocyte Esterase Negative (Negative) Salicylates < 3.0 L (3.0-30) mg/dl Urine Opiates Screen Neg (Neg) Ur Methadone, Qual Neg (Neg) Acetaminophen < 3 L (10-30) ug/ml Urine Barbiturates Neg (Neg) Ur Phencyclidine (PCP) Neg (Neg) U Amphetamin/Meth Scrn Neg (Neg) MDMA (Ecstasy) Screen Neg (Neg) U Benzodiazepines Scrn Neg (Neg) Ur Cocaine Metabolite Neg (Neg) U Marijuana (THC) Screen Neg (Neg) Ethyl Alcohol mg/dL 305.2 H (<10.0) mg/dl SARS-CoV-2, RNA, NAAT NEGATIVE (NEGATIVE) Discharge Plan Visit Data Chief Complaint: Mental Health Evaluation Stated Complaint: SUICIDAL IDEATION ED Provider: Shannen Duval Discharge Problem: Alcohol intoxication Forms Stand Alone Forms: My [facility], Suicide Prevention Resources Prescriptions Prescriptions: No Action pseudoephedrine HCl [Sudafed 12 Hour] PO PRN quetiapine 100 mg tablet 100 mg PO HS bupropion HCl 100 mg tablet sustained-release 12 hr 100 mg PO QAM gabapentin 300 mg capsule 300 mg PO BID gabapentin 100 mg capsule 100 mg PO BID Rx Instructions: take along with 300 mg escitalopram oxalate 10 mg tablet 10 mg PO QAM escitalopram oxalate 5 mg tablet 5 mg PO QAM chlordiazepoxide HCl 25 mg capsule See Taper PO Q8H Qty: 12 0RF Taper: Taper, Blank 25 mg THREE TIMES A DAY for 2 Days 25 mg TWICE A DAY for 2 Days 25 mg DAILY IN THE MORNING for 2 Days Referrals Referrals: Bri Cervantes MD [Primary Care Provider] -
[2023-11-13] MEDS ORDERED: Ativan PO Alcohol Withdrawal--Active Protocol PO PRN (01:42)
[2023-11-13] MEDS ORDERED: MULTI-VITAMIN INFUSION 10 ML, THIAMINE HCL 100 MG, FOLIC ACID 1 MG in SODIUM CHLORIDE 0... IV ONE (01:42)
[2023-11-13] MEDS ORDERED: LORazepam 1 MG TAB PO PRN ×3 (01:47)
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
[2023-11-13] MEDS ORDERED: ACETAMINOPHEN 325 MG TAB PO PRN (02:30)
[2023-11-13] MEDS ORDERED: POLYETHYLENE (MIRALAX) 17 GM PACK PO PRN (02:30)
[2023-11-13] MEDS ORDERED: MELATONIN 3 MG TAB PO PRN (02:30)
[2023-11-13] MEDS ORDERED: ONDANSETRON INJ 2 MG/ML 2 ML VIAL IV PRN (02:30)
[2023-11-13] MEDS ORDERED: Ativan IV Alcohol Withdrawal--Active Protocol IV PRN (02:31)
[2023-11-13] MEDS ORDERED: LORazepam 2 MG in SYRINGE 1 ML IV PRN (02:37)
[2023-11-13] MEDS ORDERED: LORazepam 3 MG in SYRINGE 1.5 ML IV PRN (02:37)
--- NOTE | 2023-11-13 04:43 | Billing Data ---
Date of Service November 13, 2023 Coding Level of Care Code 31516 INT INP/OBS CARE
[2023-11-13] MEDS: LACTATED RINGER'S 1,000 ML IV SCH ×3 (04:48→22:12)
--- NOTE | 2023-11-13 08:00 | Hospitalist Progress Note ---
Date of Service November 13, 2023 Assessment & Plan (1) Alcohol withdrawal: Plan: Pt is a 33 yo male with PMH of alcohol abuse, depression w/ SI, PTSD, and BRITTNY presenting via EMS at his brother's prompting d/t concern for self harm. Alcohol use disorder - alcohol level upon admission 305; last drink ~7:30PM 11/12 - urine tox neg; pt does make note of daily kratom use - CBC, CMP, TSH, and UA WNL - continue AWSS protocol with IV ativan PRN, daily thiamine and folate - seizure precautions ordered Depression w/ SI - no active SI upon admission; however, pt high risk, especially in the setting of withdrawal - 1:1 and safe tray ordered -Will hold home Lexapro as patient may have a history of bipolar, will refer to psychiatric services about official diagnosis. - Continue quetiapine 100 mg HS - will hold wellbutrin d/t current risk of seizure - psych consulted Diet: regular, safe tray VTE ppx: low risk, deferred Code: full Dispo: admit to PCU (2) Depression: (3) Suicidal ideations: Admission and Anticipated Discharge Date Admission Date: November 13, 2023 Supervising Physician Co-Signing Physician Notes Attending attestation Pt seen and examined in concert with Dr. Thompson. In agreement with the documented findings as noted in the resident documentation with any exceptions or additions as noted here. Feeling somewhat improved with administration of lorazepam with diminished auditory and visual hallucinations at time of examination. On examination, S1/S2 nl RRR no MCG. CTAB. Abd NT/ND BS+ve AUD - AWSS protocol as noted with trending labs as above MDD with SI - 1:1. Continue quetiapine and consult psychiatry Else see resident documentation as noted. Subjective Patient seen bedside this morning. Denies any suicidal ideation or homicidal ideation. Patient is having withdrawal symptoms such as seeing things that are not there and hearing conversations. States that the people are not talking to him but rather talking around him. States that he has had seizures at the past with withdrawal. His last withdrawal was about a month and a half ago. Review of Systems Review of Systems: All systems reviewed & are unremarkable except as noted in Subjective Physical Exam Physical Exam: Constitutional: well appearing, no acute distress HEENT: normocephalic, no conjunctival injection, edema and contusion noted of right orbit CV: RRR, no murmur, no LE edema Respiratory: CTA bilaterally. No rhonchi, wheezes, or crackles. No increased work of breathing MSK: no gross deformities noted Skin: warm, dry, no rashes Neuro: alert, oriented, no FND noted Psych: mood and affect congruent. Pt answers questions pleasantly and appropriately. Does not appear to be responding to internal stimuli. Results & Data Results & Data Vital Signs (Past 12 Hours) Vital Signs Temp Pulse Pulse Resp BP BP Pulse Ox 11/13/23 07:29 36.8 C 67 18 118/59 L 93 11/13/23 07:07 80 11/13/23 05:26 71 11/13/23 04:30 83 92 11/13/23 04:00 70 108/58 L 91 11/13/23 03:00 74 20 120/72 92 11/13/23 02:33 84 11/13/23 02:31 36.7 C 81 18 129/69 93 11/13/23 01:40 36.7 C 120 H 22 122/79 97 11/12/23 21:46 90 18 128/79 95 O2 Del Method 11/13/23 07:29 Room Air 11/13/23 07:07 11/13/23 05:26 11/13/23 04:30 Room Air 11/13/23 04:00 Room Air 11/13/23 03:00 11/13/23 02:33 11/13/23 02:31 Room Air 11/13/23 01:40 Room Air 11/12/23 21:46 Room Air Resident Activity Tracking Resident Involvement: Resident Care Provided Care Provided: Adult Hospital Medicine
[2023-11-13] MEDS: FOLIC ACID 1 MG TAB PO SCH (08:40)
[2023-11-13] MEDS ORDERED: ESCITALOPRAM OXALATE 10 MG TAB PO SCH (09:00)
[2023-11-13] MEDS ORDERED: NON-FORMULARY MEDICATION (Escitalopram Oxalate 5 mg tablet) PO SCH (09:00)
[2023-11-13] MEDS ORDERED: THIAMINE HCL 100 MG TAB PO SCH (09:00)
[2023-11-13] MEDS ORDERED: LORazepam 1 MG/1 ML SYR ED Inj Use ONE ×3 (12:13→20:26)
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
[2023-11-13] MEDS: QUEtiapine FUMARATE 100 MG TABLET PO SCH (20:27)
[2023-11-13] MEDS: LORazepam 1 MG in SYRINGE 0.5 ML IV PRN (20:28)
[2023-11-13] MEDS: THIAMINE HCL 100 MG TAB PO SCH (20:28)
[2023-11-14] MEDS: LORazepam 1 MG in SYRINGE 0.5 ML IV PRN ×2 (02:45→12:48)
--- NOTE | 2023-11-14 07:04 | Hospitalist Progress Note ---
Date of Service November 14, 2023 Assessment & Plan (1) Alcohol withdrawal: Plan: Pt is a 33 yo male with PMH of alcohol abuse, depression w/ SI, PTSD, and BRITTNY presenting via EMS at his brother's prompting d/t concern for self harm. Alcohol use disorder - alcohol level upon admission 305; last drink ~7:30PM 11/12 - urine tox neg; pt does make note of daily kratom use - CBC, CMP, TSH, and UA WNL - continue AWSS protocol with IV ativan PRN, daily thiamine and folate - seizure precautions ordered Depression w/ SI - no active SI upon admission; however, pt high risk, especially in the setting of withdrawal - 1:1 and safe tray ordered, will remove 1:1 per psychiatric team. -Will hold home Lexapro as patient may have a history of bipolar, will refer to psychiatric services about official diagnosis. - Continue quetiapine 100 mg HS - will hold wellbutrin d/t current risk of seizure - psych consulted -Recommend to continue Lexapro. Diet: regular, safe tray VTE ppx: low risk, deferred Code: full Dispo: admit to PCU (2) Depression: (3) Suicidal ideations: Admission and Anticipated Discharge Date Admission Date: November 13, 2023 Supervising Physician Co-Signing Physician Notes Attending attestation Pt seen and examined in concert with Dr. Thompson. In agreement with the documented findings as noted in the resident documentation with any exceptions or additions as noted here. Reports diminished, though ongoing, auditory and visual hallucinations which improve with lorazepam On examination, S1/S2 nl RRR no MCG. CTAB. Abd NT/ND BS+ve AUD - continue AWSS protocol as noted with trending labs as above MDD with SI - 1:1. Continue quetiapine. Psychiatry consultation. Else see resident documentation as noted. Subjective Patient seen bedside this morning. Still states that he is seeing some things that are not there and hearing things that are not there. Has not required extensive amount of Ativan since admitted. Otherwise is doing fine and resting comfortably. Review of Systems Review of Systems: All systems reviewed & are unremarkable except as noted in Subjective Physical Exam Physical Exam: Constitutional: well appearing, no acute distress HEENT: normocephalic, no conjunctival injection, edema and contusion noted of right orbit CV: RRR, no murmur, no LE edema Respiratory: CTA bilaterally. No rhonchi, wheezes, or crackles. No increased work of breathing MSK: no gross deformities noted Skin: warm, dry, no rashes Neuro: alert, oriented, no FND noted Psych: mood and affect congruent. Pt answers questions pleasantly and appropriately. Does not appear to be responding to internal stimuli. Results & Data Results & Data Vital Signs (Past 12 Hours) Vital Signs Temp Pulse Pulse Resp BP BP Pulse Ox 11/14/23 07:03 53 L 11/14/23 05:17 50 L 18 130/76 98 11/14/23 05:00 49 L 17 130/76 98 11/14/23 04:00 52 L 20 115/72 98 11/14/23 03:00 51 L 17 132/81 98 11/14/23 01:27 49 L 16 111/66 95 11/13/23 23:18 56 L 18 119/76 96 11/13/23 22:00 56 L 18 122/70 98 11/13/23 20:43 57 L 11/13/23 20:30 71 22 11/13/23 20:00 37 C 11/13/23 20:00 61 20 127/82 98 11/13/23 19:30 75 15 11/13/23 19:20 O2 Del Method 11/14/23 07:03 11/14/23 05:17 Room Air 11/14/23 05:00 11/14/23 04:00 11/14/23 03:00 11/14/23 01:27 Room Air 11/13/23 23:18 Room Air 11/13/23 22:00 11/13/23 20:43 11/13/23 20:30 11/13/23 20:00 11/13/23 20:00 11/13/23 19:30 11/13/23 19:20 Room Air (1) Alcohol withdrawal Complication of substance-induced condition: with delirium Qualified Code(s): F10.931 - Alcohol use, unspecified with withdrawal delirium
[2023-11-14 07:47] LABS: Hematocrit (blood only) 42.1 % (42.0-52.0); Hemoglobin 14.6 g/dl (14.0-18.0); Mean Corpuscular Hemoglobin 30.8 pg (25.0-34.0); Mean Corpuscular Hgb Conc 34.7 g/dL (32.0-36.0); Mean Corpuscular Volume 88.8 fL (80.0-100.0); Mean Platelet Volume 10.1 fL (9.4-12.4); Platelet Count 203 K/uL (130-400); RDW Standard Deviation 39.7 fL (36.4-46.3); Red Blood Count 4.74 M/uL (4.70-6.10); White Blood Count 6.92 K/ul (4.8-10.8)
[2023-11-14 08:10] LABS: Calcium 9.3 mg/dl (8.6-10.3); Potassium 3.9 mmol/L (3.5-5.1)
[2023-11-14 08:15] LABS: BUN Creatinine Ratio 13.7 (10-20); Creatinine Clr Calc Pharmacy 174.8 ml/min; Est GFR (African American) 142.2 ml/min; Est GFR (Non-African American) 122.7 ml/min
[2023-11-14] MEDS: LACTATED RINGER'S 1,000 ML IV SCH ×2 (08:17→19:20)
[2023-11-14] MEDS: THIAMINE HCL 100 MG TAB PO SCH ×2 (09:00→20:19)
[2023-11-14] MEDS ORDERED: ESCITALOPRAM OXALATE 10 MG TAB PO SCH (09:00)
[2023-11-14] MEDS: FOLIC ACID 1 MG TAB PO SCH (09:00)
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
[2023-11-14] MEDS: QUEtiapine FUMARATE 100 MG TABLET PO SCH (20:19)
== END 2023-11-14 20:20 | disposition left against medical advice (07) | DRG 894 ==
LOC: ED 21:37 → SUATTDRO 11-13 02:30 → EDINP 11-13 02:30

== ENCOUNTER 2023-11-18 21:41 | Inpatient (IN) ==
[2023-11-18 22:30] LABS: Basophils # (auto) 0.05 K/uL (0.00-0.20); Basophils % (auto) 0.5 %; Eosinophils # (auto) 0.13 K/uL (0.00-0.50); Eosinophils % (auto) 1.4 %; Hematocrit (blood only) 45.6 % (42.0-52.0); Immature Granulocytes # (auto) 0.03 K/uL (0.01-0.20); Immature Granulocytes % (auto) 0.3 %; Lymphocytes # (auto) 1.86 K/uL (1.20-3.40); Lymphocytes % (auto) 19.4 %; Mean Corpuscular Hemoglobin 30.9 pg (25.0-34.0); Mean Corpuscular Hgb Conc 35.1 g/dL (32.0-36.0); Mean Platelet Volume 10.1 fL (9.4-12.4); Monocytes # (auto) 0.52 K/uL (0.11-0.59); Monocytes % (auto) 5.4 %; Platelet Count 273 K/uL (130-400); RDW Coefficient of Variation 12.8 % (11.5-14.5); RDW Standard Deviation 41.2 fL (36.4-46.3); Red Blood Count 5.18 M/uL (4.70-6.10); White Blood Count 9.59 K/ul (4.8-10.8)
[2023-11-18] MEDS: HALOPERIDOL LACTATE 5 MG/ML 1 ML VIAL ONE (22:36)
[2023-11-18] MEDS: HALOPERIDOL LACTATE 5 MG/ML 1 ML VIAL IM STA (22:37)
[2023-11-18 22:46] LABS: Alanine Aminotransferase 26 U/L (7-52); Albumin Globulin Ratio 1.4 (0.9-2); Albumin Level 4.5 gm/dl (3.4-5.0); Alkaline Phosphatase 63 U/L (34-104); Anion Gap 10 (3-11); Aspartate Aminotransferase 35 U/L (13-39); BUN Creatinine Ratio 14.6 (10-20); Bilirubin,Total 0.4 mg/dl (0.2-1.0); Blood Urea Nitrogen 12 mg/dl (6-23); Calcium 9.4 mg/dl (8.6-10.3); Carbon Dioxide 30 mmol/L (21-32); Chloride 103 mmol/L (98-107); Est GFR (African American) 135.6 ml/min; Globulin 3.2 gm/dl (2.5-4.0); Glucose 117 mg/dl (70-99(Fasting)); Potassium 3.7 mmol/L (3.5-5.1); Sodium 143 mmol/L (136-145); Total Protein 7.7 gm/dl (6.0-8.3)
[2023-11-18 22:49] LABS: Acetaminophen < 3 ug/ml (10-30); Salicylate < 3.0 mg/dl (3.0-30)
[2023-11-18 23:01] LABS: Thyroid Stimulating Hormone 0.301 uIu/ml (0.300-4.500)
--- NOTE | 2023-11-19 00:27 | Emergency Department Note ---
Impression & Plan Alcohol intoxication, Alcohol withdrawal, Suicidal ideations ED Provider Note NAME: MARYSOL RUTLEDGE AGE: 33 SEX: M : 1990 ARRIVES VIA: Ambulance INFORMANT: Patient, ED PROVIDER(S): Edilberto Minor MD CHIEF COMPLAINT: 302 HPI: This is a 33-year-old male presenting for SI. Patient is a 302 by police. Reportedly patient called his sister saying that he would cut himself and was bleeding out. Police were then called, they went to a house and unable to have him open the door. They were unable to get inside the house and found him down on the ground. He then stood up and attempted to climb out the window. He also tried to reach for the please officers firearm. He is making aggressive statements asking the police to shoot him. Patient he had been drinking. Upon arrival here patient was significantly uncooperative, not answering questions, becoming verbally aggressive. ROS: See above HPI for pertinent positives & negatives. A total of 10 systems reviewed and were otherwise negative. PAST MEDICAL HISTORY: See Below PAST SURGICAL HISTORY: See Below FAMILY HISTORY: See Below SOCIAL HISTORY: See Below HOME MEDICATIONS: See Below ALLERGIES: See Below VITALS: See Below PHYSICAL EXAMINATION: General: resting comfortably in no acute distress, chronically ill-appearing, disheveled Head: Normocephalic and atraumatic Eyes: Normal inspection Ear, nose, throat: Normal external exam Neck: Normal range of motion Respiratory: lungs clear to auscultation bilaterally Cardiovascular: Regular rate/rhythm, no murmur GI: soft, nontender, no guarding or rebound Extremities: nontender, moves all extremities Neuro: Extremity spontaneously, not oriented Skin: Warm, dry, and intact MEDICAL DECISION MAKING: This is a 33-year-old male presenting for suicidal ideation as well as 302. See above for history with police. Attempted to do suicide by gyroscopic instrument tester. Mother touched about a window. Upon arrival here, patient aggressive towards staff requiring chemical sedation with Haldol 5 mg IM. -Patient refusing to answer questions initially. -After observation, patient now more awake, still intoxicated but stating that he does not member doing this. He apologizes. Otherwise he does state he may go into withdrawal soon. He was recently here for withdrawal and checked out AMA. -Blood work reveals no leukocytosis or anemia, electrolytes within normal limits, LFTs within normal limits. -Alcohol level 401; will be clinically sober at around 10 AM for 3 to evaluation -Patient had a longstanding history of alcohol withdrawal. Due to his significant elevated alcohol level and concerns for withdrawal, will been medically. Differential diagnosis: SI, intoxication, withdrawal ER treatment provided: See below Diagnostics interpreted by me: ECG: None Laboratory studies: As stated above and show below. 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 Elevated liver enzymes Diplopia Anxiety and depression Depressive disorder Alcoholic hepatitis Lab test negative for COVID-19 virus No pertinent family history BRITTNY (generalized anxiety disorder) Left leg cellulitis Hypokalemia Headache Dizziness Surgical History No pertinent past surgical history Family History Mother Other No significant family history Denies family history of Ovarian cancer Prostate cancer Myocardial infarction Breast cancer Colorectal cancer Hypertension Social History (Updated 09/28/23 @ 15:44 by Angie Carrillo MD) Smoking Status: Unknown if ever smoked Tobacco Type: Cigarettes Second Hand Exposure: No; Hx Alcohol Use: Yes Alcohol type: hard liquor Hx Substance Use: No Preferred Language: Gibraltarian Visual Impairment: No Limitations Hearing Ability: Normal 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: No Beliefs That Will Affect Care: None marital status: marital status details: Current Living Situation: Alone current occupational status: employed How many Children do You have: 1 Feels Safe at Home: Yes Childhood Exposure to Second-Hand Smoke: No Diet: regular Dental Care, Regularly: Yes Physical Activity Frequency: Daily Seatbelt Use: always Sunscreen Use: No Assistive Devices: None Allergies Allergies Allergy/AdvReac Type Severity Reaction Status Date / Time bupropion [From Wellbutrin] AdvReac Severe anxiety, Verified 11/14/23 00:40 confusion buspirone [From BuSpar] AdvReac Intermediate Shaking/john Verified 10/04/23 10:20 mor gluten AdvReac Intermediate Gastrointestinal Verified 10/04/23 10:20 Upset gabapentin AdvReac Unknown Shakiness Verified 10/04/23 10:20 lactose AdvReac Unknown Gastrointestinal Verified 10/04/23 10:20 Upset antihistamines AdvReac Intermediate "Just Uncoded 10/04/23 10:20 Don't Feel Right When I Take Them" Home Meds Home Medications Medication Instructions Recorded Confirmed bupropion HCl 100 mg tablet,12 hr 100 mg PO QAM 09/25/23 11/14/23 sustained-release escitalopram oxalate 10 mg tablet 10 mg PO QAM 09/25/23 11/14/23 gabapentin 100 mg capsule 100 mg PO BID 09/25/23 11/14/23 gabapentin 300 mg capsule 300 mg PO BID 09/25/23 11/14/23 quetiapine 100 mg tablet 100 mg PO HS 09/25/23 11/14/23 Results & Data (ED) Vital Signs Vital Signs - 24 hr 11/18/23 21:54 11/18/23 23:48 11/19/23 01:49 Temperature 37.1 C 37.8 C H Temperature Source Temporal Artery Scan Oral Pulse Rate 121 H Pulse Rate [Finger] 89 119 H Respiratory Rate 20 20 20 Respiratory Effort / Characteristics Non-Labored Non-Labored Spontaneous Non-Labored Spontaneous Respiratory Depth Normal Normal Normal Respiratory Pattern Regular Regular Blood Pressure 140/82 Blood Pressure [Right Arm] 112/63 110/58 L Blood Pressure Mean 101 Blood Pressure Mean [Right Arm] 79 75 Blood Pressure Position [Right Arm] Sitting Pulse Oximetry 92 93 93 Oxygen Delivery Method Room Air Room Air Room Air Sepsis Recent Fever Within 48 Hours No Sepsis New/Unexplained Change in Mental Status N/A Sepsis Action Taken by Nursing No Action Required 11/19/23 02:11 11/19/23 02:12 Temperature Temperature Source Pulse Rate 110 H Pulse Rate [Finger] 90 Respiratory Rate 18 Respiratory Effort / Characteristics Non-Labored Spontaneous Respiratory Depth Normal Respiratory Pattern Blood Pressure Blood Pressure [Right Arm] 119/79 Blood Pressure Mean Blood Pressure Mean [Right Arm] 92 Blood Pressure Position [Right Arm] Pulse Oximetry 96 Oxygen Delivery Method Room Air Sepsis Recent Fever Within 48 Hours Sepsis New/Unexplained Change in Mental Status Sepsis Action Taken by Nursing Laboratory Data 11/18/23 22:05 11/18/23 22:05 Lab Results 11/18/23 Range/Units 22:05 WBC 9.59 (4.8-10.8) K/ul RBC 5.18 (4.70-6.10) M/uL Hgb 16.0 (14.0-18.0) g/dl Hct 45.6 (42.0-52.0) % MCV 88.0 (80.0-100.0) fL MCH 30.9 (25.0-34.0) pg MCHC 35.1 (32.0-36.0) g/dL RDW Std Deviation 41.2 (36.4-46.3) fL RDW Coeff of Bryanna 12.8 (11.5-14.5) % Plt Count 273 (130-400) K/uL MPV 10.1 (9.4-12.4) fL Immature Gran % (Auto) 0.3 % Neut % (Auto) 73.0 % Lymph % (Auto) 19.4 % [place] % (Auto) 5.4 % Eos % (Auto) 1.4 % Baso % (Auto) 0.5 % Neut # (Auto) 7.00 H (1.40-6.50) K/uL Lymph # (Auto) 1.86 (1.20-3.40) K/uL [place] # (Auto) 0.52 (0.11-0.59) K/uL Eos # (Auto) 0.13 (0.00-0.50) K/uL Baso # (Auto) 0.05 (0.00-0.20) K/uL Immature Gran # (Auto) 0.03 (0.01-0.20) K/uL Sodium 143 (136-145) mmol/L Potassium 3.7 (3.5-5.1) mmol/L Chloride 103 (98-107) mmol/L Carbon Dioxide 30 (21-32) mmol/L Anion Gap 10 (3-11) BUN 12 (6-23) mg/dl Creatinine 0.82 (0.6-1.4) mg/dl Est Cr Clr Drug Dosing Not Reportable Est GFR ( Amer) 135.6 ml/min Est GFR (Non-Af Amer) 117.0 ml/min BUN/Creatinine Ratio 14.6 (10-20) Glucose 117 H (70-99(Fasting)) mg/dl Calcium 9.4 (8.6-10.3) mg/dl Total Bilirubin 0.4 (0.2-1.0) mg/dl AST 35 (13-39) U/L ALT 26 (7-52) U/L Alkaline Phosphatase 63 (34-104) U/L Total Protein 7.7 (6.0-8.3) gm/dl Albumin 4.5 (3.4-5.0) gm/dl Globulin 3.2 (2.5-4.0) gm/dl Albumin/Globulin Ratio 1.4 (0.9-2) TSH 0.301 (0.300-4.500) uIu/ml Salicylates < 3.0 L (3.0-30) mg/dl Acetaminophen < 3 L (10-30) ug/ml Ethyl Alcohol mg/dL 401.3 H (<10.0) mg/dl SARS-CoV-2, RNA, NAAT NEGATIVE (NEGATIVE) Administered Medications Discontinued Medications Diazepam (Diazepam 5 Mg/Ml 10ml Vial) 10 mg IV NOW STA Stop: 11/19/23 01:58 Last Admin: 11/19/23 02:01 Dose: 10 mg Documented By: LINO Haloperidol Lactate (Haloperidol Lactate 5 Mg/Ml 1 Ml Vial) Confirm Administered Dose 5 mg .ROUTE .STK-MED ONE Stop: 11/18/23 21:49 Last Admin: 11/18/23 22:36 Dose: Not Given Documented By: WARD Haloperidol Lactate (Haloperidol Lactate 5 Mg/Ml 1 Ml Vial) 5 mg IM NOW STA Stop: 11/18/23 22:37 Last Admin: 11/18/23 22:37 Dose: 5 mg Documented By: WARD Discharge Plan Visit Data Chief Complaint: Mental Health Evaluation Stated Complaint: MHID, ETOH ED Provider: Edilberto Minor Discharge Problem: Alcohol intoxication, Alcohol withdrawal, Suicidal ideations Forms Stand Alone Forms: My [facility], Suicide Prevention Resources Prescriptions Prescriptions: No Action quetiapine 100 mg tablet 100 mg PO HS bupropion HCl 100 mg tablet sustained-release 12 hr 100 mg PO QAM gabapentin 300 mg capsule 300 mg PO BID gabapentin 100 mg capsule 100 mg PO BID Rx Instructions: take along with 300 mg escitalopram oxalate 10 mg tablet 10 mg PO QAM Referrals Referrals: Bri Cervantes MD [Primary Care Provider] -
[2023-11-19] MEDS: diazePAM 5 MG/ML 10ML VIAL IV STA (02:01)
--- NOTE | 2023-11-19 02:23 | History & Physical Report ---
Date of Service November 19, 2023 Assessment & Plan (1) Alcohol use disorder, severe, dependence: (2) Post traumatic stress disorder (PTSD): (3) Depression: (4) Alcohol withdrawal: Plan Chun Block is a 33 year-old male with past medical history of alcohol abuse, depression w/ SI, PTSD, and BRITTNY who was brought to the ED by police after he made concerning statements to his sister over the phone. Per chart review, the patient stated to his sister that he had cut himself and "lost a quart of blood" and would be before anyone would arrive which prompted a welfare check by police. He was recently admitted to [facility] for SI, later left AMA. Alcohol use disorder -Alcohol level upon admission 401.3; patient unsure of when he last drank but notes he typically drinks a handle of vodka per day -Urine tox ordered, pt does make note of daily kratom use. Denies drug use at this time. -CBC, CMP, TSH WNL -Continue AWSS protocol with IV Ativan PRN, daily thiamine and folate -Received Haldol on arrival to ED and an additional Valium 10mg. PRN Haldol ordered for agitation -Seizure precautions ordered Depression w/ SI -Patient denies any active SI upon admission, although patient notes "I know if I say yes then I have to stay" -1:1 and safe tray ordered -Continue home Lexapro 15 mg daily and quetiapine 100 mg HS. Patient states he has not taken these medications since he left the hospital last -Psych consulted Diet: regular, safe tray VTE ppx: low risk, deferred Code: full Dispo: admit to PCU/tele History of Present Illness Primary Care Provider: Bri Cervantes MD Chun Block is a 33 year-old male with past medical history of alcohol abuse, depression w/ SI, PTSD, and BRITTNY who was brought to the ED by police after he made concerning statements to his sister over the phone. Per chart review, the patient stated to his sister that he had cut himself and "lost a quart of blood" and would be before anyone would arrive which prompted a welfare check by police. When police arrived at his house, he was not bleeding and asked the police to shoot him- he then tried to grab an officer's gun as he was being handcuffed. He was recently admitted to [facility] for SI, later left AMA. Patient states he doesn't remember what happened today or how much he drank, states he typically drinks in "binges" and has been drinking one handle of vodka per day. Patient repeatedly states that he is "embarrassed". Patient notes that he has been having a hard time since his therapist had to report a traumatic event from his childhood. He states he knows he has a lot of family members that care about him, but he doesn't understand why he is the only one that has to struggle with alcohol. He denies any recent triggers or stressors that are making this worse, but notes "it takes along time for me to get stable mentally." When asked if he is currently suicidal, patient states no and says "I know if I say yes then I have to stay". During this encounter, patient had received Valium beforehand and was resting in bed. He states he was feeling "shaky" before the valium but now is feeling ok. He denies any other withdrawal symptoms at this time. Allergies Allergy/AdvReac Type Severity Reaction Status Date / Time Antihistamines - Alkylamine AdvReac Intermediate "Just Verified 11/19/23 04:18 Don't Feel Right When I Take Them" Antihistamines - Ethanolamine AdvReac Intermediate "Just Verified 11/19/23 04:18 Don't Feel Right When I Take Them" Antihistamines - AdvReac Intermediate "Just Verified 11/19/23 04:18 Ethylenediamine Don't Feel Right When I Take Them" Antihistamines - Piperazine AdvReac Intermediate "Just Verified 11/19/23 04:18 Don't Feel Right When I Take Them" Antihistamines - Piperidine AdvReac Intermediate "Just Verified 11/19/23 04:18 Don't Feel Right When I Take Them" buspirone [From BuSpar] AdvReac Intermediate Shaking/john Verified 11/19/23 04:18 mor Home Medications Medication Instructions Recorded Confirmed Type bupropion HCl 100 mg tablet,12 hr 100 mg PO QAM 09/25/23 11/19/23 History sustained-release escitalopram oxalate 10 mg tablet 15 mg PO QAM 09/25/23 11/19/23 History gabapentin 100 mg capsule 100 mg PO BID 09/25/23 11/19/23 History gabapentin 300 mg capsule 300 mg PO BID 09/25/23 11/19/23 History quetiapine 100 mg tablet 100 mg PO HS 09/25/23 11/19/23 History chlordiazepoxide HCl 10 mg capsule 10 mg PO Q12H 2 days #4 caps 11/21/23 Rx chlordiazepoxide HCl 25 mg capsule 25 mg PO Q8H 3 days #9 caps 11/21/23 Rx Past Med/Surg History Medical History (Updated 11/19/23 @ 16:42 by Wilman Wiley MD) Post traumatic stress disorder (PTSD) Alcohol use disorder, severe, dependence Suicidal ideations COVID-19 Transaminitis Acid reflux Tobacco abuse Homicidal ideation Depression with suicidal ideation Alcohol intoxication 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 Elevated liver enzymes Diplopia Anxiety and depression Depressive disorder Alcoholic hepatitis Lab test negative for COVID-19 virus No pertinent family history BRITTNY (generalized anxiety disorder) Left leg cellulitis Hypokalemia Headache Dizziness Surgical History No pertinent past surgical history Family History Mother Other No significant family history Denies family history of Ovarian cancer Prostate cancer Myocardial infarction Breast cancer Colorectal cancer Hypertension Social History (Updated 09/28/23 @ 15:44 by Angie Carrillo MD) Smoking Status: Unknown if ever smoked Tobacco Type: Cigarettes Second Hand Exposure: No; Hx Alcohol Use: Yes Alcohol type: hard liquor Hx Substance Use: No Preferred Language: Surinamese Communication Ability: Effective Visual Impairment: No Limitations Hearing Ability: Normal Sql Developer Required: No Beliefs That Will Affect Care: None marital status: marital status details: Current Living Situation: Alone current occupational status: employed How many Children do You have: 1 Feels Safe at Home: Yes Childhood Exposure to Second-Hand Smoke: No Diet: regular Dental Care, Regularly: Yes Physical Activity Frequency: Daily Seatbelt Use: always Sunscreen Use: No Assistive Devices: None Review of Systems Review of Systems: As per above Physical Exam Constitutional: WD/WN, vitals as above Eyes: + anicteric sclerae; no conjunctival abn ormality ENMT: Ears: no hearing impairment Nose: no external nose abnormality moist mucous membranes Respiratory: Normal respiratory effort, no accessory muscle use Cardiovascular: Mild tachycardia, limbs well perfused Gastrointestinal (Abdomen): Abdomen nondistended Skin: no rashes, warm and dry Psychiatric: Poor eye contact, patient fidgeting at times Results & Data Results & Data Vital Signs (Past 12 Hours) Vital Signs Temp Pulse Pulse Resp BP BP Pulse Ox 11/19/23 02:12 90 18 119/79 96 11/19/23 01:49 37.8 C H 119 H 20 110/58 L 93 11/18/23 23:48 89 20 112/63 93 11/18/23 21:54 37.1 C 121 H 20 140/82 92 O2 Del Method 11/19/23 02:12 Room Air 11/19/23 01:49 Room Air 11/18/23 23:48 Room Air 11/18/23 21:54 Room Air Supervising Physician Co-Signing Physician Notes Attending addendum: I have physically seen this patient, have supervised the medical residents activities, and agree with the H&P unless as otherwise noted. Assessment and Plan: Alcohol use disorder/severe/alcohol dependence- Alcohol level 401.3 on admission Patient also notes daily use of kratom and another medication with similar narcotic fax word online AWSS protocol with IV Ativan Thiamine 100 mg IV daily Folate 1 mg IV daily Status post Haldol 5 mg IM from the ED and 10 mg IM from the ED Haldol 5 mg IM every 6 hours as needed agitation Seizure precautions ordered Depression with suicidal ideation- Patient currently denying any active suicidal ideations One-to-one observation and safe tray ordered Continue Lexapro 15 mg daily and quetiapine 100 mg at bedtime, which patient reports he has not been taking since he left the hospital Consult memory care program director Activity Tracking Resident Involvement: Resident Care Provided Care Provided: Adult Hospital Medicine
[2023-11-19] MEDS ORDERED: HALOPERIDOL LACTATE 5 MG/ML 1 ML VIAL IM PRN (03:42)
[2023-11-19] MEDS ORDERED: LORazepam 1 MG in SYRINGE 0.5 ML IV PRN (03:42)
[2023-11-19] MEDS ORDERED: Ativan IV Alcohol Withdrawal--Active Protocol IV PRN (04:16)
[2023-11-19] MEDS ORDERED: LORazepam 2 MG in SYRINGE 1 ML IV PRN (04:16)
[2023-11-19] MEDS: LORazepam 3 MG in SYRINGE 1.5 ML IV PRN (04:56)
[2023-11-19] MEDS: LORazepam 1 MG in SYRINGE 0.5 ML IV PRN (05:24)
[2023-11-19] MEDS: FOLIC ACID 1 MG TAB PO SCH (09:25)
[2023-11-19] MEDS: THIAMINE HCL 100 MG TAB PO SCH (09:25)
[2023-11-19] MEDS: ESCITALOPRAM OXALATE 10 MG TAB PO SCH (09:25)
[2023-11-19 13:03] LABS: Appearance Urine Turbid (Clear); Bacteria Urine Automated Negative (Negative); Bilirubin Urine Negative (Negative); Blood Urine Negative (Negative); Color Urine Dark Yellow; Glucose Urine UA Negative (Negative); Ketones Urine Negative (Negative); Leukocyte Esterase Urine Negative (Negative); Nitrite Urine Negative (Negative); Specific Gravity Urine 1.025 (1.000-1.030); Urobilinogen Urine Negative (Negative); pH Urine 8.5 (4.5-7.5)
[2023-11-19 13:04] LABS: Protein Urine Trace (Negative)
[2023-11-19 13:26] LABS: Amphetamines+Metham, Urine Neg (Neg); Barbiturates, Urine Neg (Neg); Benzodiazepine, Urine Pos (Neg); Cocaine, Urine Neg (Neg); MDMA (Ecstacy), Urine Neg (Neg); Marijuana, Urine Neg (Neg); Methadone, Urine Neg (Neg); Opiate, Urine Neg (Neg); Phencyclidine, Urine Neg (Neg)
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
[2023-11-19] MEDS: QUEtiapine FUMARATE 100 MG TABLET PO SCH (20:39)
[2023-11-19] MEDS: GABAPENTIN 400 MG CAP PO SCH (21:30)
[2023-11-20] MEDS ORDERED: chlordiazePOXIDE ALCOHOL WITHDRAWL 50MG PO STA (10:33)
[2023-11-20] MEDS: chlordiazePOXIDE HCl 25 MG CAP PO SCH ×2 (10:43→23:46)
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
[2023-11-21 07:39] LABS: BUN Creatinine Ratio 13.9 (10-20); Calcium 9.3 mg/dl (8.6-10.3); Creatinine Clr Calc Pharmacy 146.7 ml/min; Est GFR (African American) 137.7 ml/min; Est GFR (Non-African American) 118.8 ml/min; Potassium 3.8 mmol/L (3.5-5.1)
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
--- NOTE | 2023-11-21 19:03 | Billing Data ---
Date of Service November 21, 2023 Coding Level of Care Code 15333 INT INP/OBS CARE
[2023-11-22 05:33] LABS: 7-Aminoclonaz, Confirm NEGATIVE ng/mL (<25); Hydro-Alp Ur, GC/MS NEGATIVE ng/mL (<25); Hydroxyethylflurazepam, Conf NEGATIVE ng/mL (<50); Hydroxymidazolam Ur, GC/MS NEGATIVE ng/mL (<50); Hydroxytriazolam NEGATIVE ng/mL (<50); Lorazepam, Ur GC/MS 896 ng/mL (<50); Nordiazepam, Confirm NEGATIVE ng/mL (<50); Oxazepam Ur, GC/MS NEGATIVE ng/mL (<50); Temazepam, Confirm NEGATIVE ng/mL (<50)
[2023-11-22] MEDS ORDERED: chlordiazePOXIDE HCl 25 MG CAP PO SCH (12:45)
== END 2023-11-21 10:32 | disposition home or self-care (01) | DRG 897 ==
LOC: ED 21:41 → EDINP 11-19 02:56 → SUATTDRO 11-19 02:56 → 2S 11-19 17:00

== ENCOUNTER 2023-12-25 03:09 | Inpatient (IN) ==
--- NOTE | 2023-12-25 03:25 | Emergency Department Note ---
Impression & Plan Alcohol intoxication, Anxiety, Heart palpitations, Acute dehydration ED Provider Note Name: MARYSOL RUTLEDGE Age: 33 Sex: Male Arrives Via: Ambulance Informant: Patient, EMS ED Provider: Peewee Geiger MD Chief Complaint: Anxiety Impression: As per impressions above Medical Decision Makin-year-old male well-known to being department for recurrent visits for alcohol intoxication and anxiety attacks. Tonight he arrives for anxiety/palpitations. Patient is quite tachycardic for EMS noted to be in the 140s 150s but already improving on arrival after 1 mg IV Ativan. On my evaluation heart rate in the 120s. He is falling asleep. He was given another 1 and half liters saline and banana bag with heart rate in the 80s to 90s while sleeping. When he wakes up heart rate comes up a bit. He is not hypertensive. Patient's alcohol is significantly elevated. At this point he is not actively withdrawing though difficult to tell as he did get some Ativan. Labs show mild CK elevation which is baseline for him. Otherwise his bicarb is a little low consistent with a recent panic attack. He does not appear septic he is not hypotensive. Initially though intoxicated patient is denying any suicidal or homicidal ideation. Triage/Nursing Notes reviewed by Me Differential:Alcohol intoxication, anxiety, psychiatric crisis, toxicologic, infection, hypoglycemia, electrolyte abnormalities, cardiac sources, intracerebral event, neurologic, trauma, as well as other pathologies. Vital Signs: reviewed and remarkable for tachycardia Interventions: 1 L normal saline finished that had initially been started by EMS, 500 mL banana bag IV Labs:ED labs Reviewed by me and remarkable for mild CK elevation consistent with baseline, mild alcohol elevation, mild low bicarb Imagin view chest x-ray as per my interpretation no infiltrate or effusion appreciated. EKG:As per my interpretation. Indication palpitations. Sinus tachycardia 138 bpm and a QTc of 445. No ectopy nor ischemia appreciated. When compared to EKG of November 14, 2022 heart rate has increased. Cardiac/Tele Monitoring: Cardiac Monitoring: An Order was placed for continuous cardiac monitoring. The monitor shows a rate of 80 with a normal sinus rhythm. Consults:Reviewed with case management. They will await patient sobering and awakening and evaluate. Plan: Disposition:Signed out to Dr. Cobos pending sobering and waking up for repeat evaluation Condition: Good History of Present Illness: 33-year-old gentleman arrives for evaluation of palpitations. Patient admits to be drinking throughout the day yesterday as well as pre much every day. States he awoke this evening with palpitations and chest tightness. States he is having trouble taking of breath. States he is feeling very dehydrated. Called 911 due to symptoms and in route was given IV Ativan for severe panic attack findings. Heart rate did come down following this though remains tachycardic. Patient states he is feeling bit better but states he is having a very dry mouth. Denies any drug or medication overdose. Denies current thoughts of harm to self. Denies any harm to others. Per EMS heart rate was in the 140s and 150s on their initial evaluation. Past Medical History: Alcoholism, anxiety/depression, PTSD, frequent hospitalizations for suicidal ideation and alcohol withdrawal Home Medications: States he has been taking his medicines Allergies: Antihistamines, BuSpar Vitals:Blood Pressure: 145/94, Pulse 122, RR 22, T 36.8C, O2 95% on RA Physical Exam: GENERAL: Patient is intoxicated and dehydrated appearing and in no significant distress. Dry mucous membranes. Smells of alcohol RESPIRATORY: No dyspnea. Clear to auscultation and equal bilaterally. CARDIOVASCULAR: Tachycardic.No murmur appreciated. GASTROINTESTINAL: Abdomen soft, non-tender, no peritonitis. EXTREMITIES: Normal motion all extremities, no cyanosis, no edema. NEUROLOGIC: Alert and oriented with slurred speech. No focal neurologic deficits appreciated SKIN: No rash, no jaundice, no diaphoresis. PSYCH: Mildly anxious, intoxicated, denies current suicidal ideation GCS: 15 ED Course: Times/Reassessments: Patient sleeping soundly in no distress. Repeat vital signs are unremarkable with a heart rate in the 80s blood pressure 117/79 and O2 sat of 96% at 6:30 AM. 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 Elevated liver enzymes Diplopia Anxiety and depression Depressive disorder Alcoholic hepatitis Lab test negative for COVID-19 virus No pertinent family history BRITTNY (generalized anxiety disorder) Left leg cellulitis Hypokalemia Headache Dizziness Surgical History No pertinent past surgical history Family History Mother Other No significant family history Denies family history of Ovarian cancer Prostate cancer Myocardial infarction Breast cancer Colorectal cancer Hypertension Social History (Updated 09/28/23 @ 15:44 by Angie Carrillo MD) Smoking Status: Current every day smoker Tobacco Type: Cigarettes Second Hand Exposure: No; Hx Alcohol Use: Yes Alcohol type: hard liquor Hx Substance Use: No Preferred Language: [place] Islander Communication Ability: Effective Visual Impairment: No Limitations Hearing Ability: Normal Arranging Funeral Director Required: No Beliefs That Will Affect Care: None marital status: marital status details: Current Living Situation: Alone current occupational status: employed How many Children do You have: 1 Feels Safe at Home: Yes Childhood Exposure to Second-Hand Smoke: No Diet: regular Dental Care, Regularly: Yes Physical Activity Frequency: Daily Seatbelt Use: always Sunscreen Use: No Assistive Devices: None Allergies Allergies Allergy/AdvReac Type Severity Reaction Status Date / Time Antihistamines - Alkylamine AdvReac Intermediate "Just Verified 11/19/23 04:18 Don't Feel Right When I Take Them" Antihistamines - Ethanolamine AdvReac Intermediate "Just Verified 11/19/23 04:18 Don't Feel Right When I Take Them" Antihistamines - AdvReac Intermediate "Just Verified 11/19/23 04:18 Ethylenediamine Don't Feel Right When I Take Them" Antihistamines - Piperazine AdvReac Intermediate "Just Verified 11/19/23 04:18 Don't Feel Right When I Take Them" Antihistamines - Piperidine AdvReac Intermediate "Just Verified 11/19/23 04:18 Don't Feel Right When I Take Them" buspirone [From BuSpar] AdvReac Intermediate Shaking/john Verified 11/19/23 04:18 mor Home Meds Home Medications Medication Instructions Recorded Confirmed bupropion HCl 100 mg tablet,12 hr 100 mg PO QAM 09/25/23 11/19/23 sustained-release escitalopram oxalate 10 mg tablet 15 mg PO QAM 09/25/23 11/19/23 gabapentin 100 mg capsule 100 mg PO BID 09/25/23 11/19/23 gabapentin 300 mg capsule 300 mg PO BID 09/25/23 11/19/23 quetiapine 100 mg tablet 100 mg PO HS 09/25/23 11/19/23 Results & Data (ED) Vital Signs Vital Signs - 24 hr 12/25/23 03:01 12/25/23 03:01 12/25/23 03:17 Temperature Temperature Source Pulse Rate 135 H Pulse Rate [Apical] 101 H Pulse Rate from SpO2 Sensor Pulse Rhythm Pulse Rhythm [Apical] Regular Pulse Strength Pulse Strength [Apical] Normal Respiratory Rate 15 Respiratory Effort / Characteristics Non-Labored Spontaneous Respiratory Depth Normal Respiratory Pattern Regular Blood Pressure Blood Pressure [Right Arm] 140/99 Blood Pressure Mean Blood Pressure Mean [Right Arm] 112 Blood Pressure Position Blood Pressure Position [Right Arm] Sitting Pulse Oximetry 92 94 Oxygen Delivery Method Room Air Room Air Sepsis Recent Fever Within 48 Hours Sepsis New/Unexplained Change in Mental Status Sepsis Action Taken by Nursing 12/25/23 03:17 12/25/23 03:18 12/25/23 03:20 Temperature 36.7 C Temperature Source Oral Pulse Rate 137 H 143 H Pulse Rate [Apical] Pulse Rate from SpO2 Sensor 138 H Pulse Rhythm Regular Pulse Rhythm [Apical] Pulse Strength Normal Pulse Strength [Apical] Respiratory Rate 19 20 Respiratory Effort / Characteristics Non-Labored Spontaneous Respiratory Depth Normal Respiratory Pattern Regular Blood Pressure 145/94 H 140/99 Blood Pressure [Right Arm] Blood Pressure Mean 110 112 Blood Pressure Mean [Right Arm] Blood Pressure Position Sitting Blood Pressure Position [Right Arm] Pulse Oximetry 95 95 Oxygen Delivery Method Room Air Room Air Sepsis Recent Fever Within 48 Hours No Sepsis New/Unexplained Change in Mental Status No Sepsis Action Taken by Nursing No Action Required 12/25/23 03:30 12/25/23 03:30 12/25/23 04:00 Temperature Temperature Source Pulse Rate 125 H 102 H Pulse Rate [Apical] Pulse Rate from SpO2 Sensor 101 H Pulse Rhythm Pulse Rhythm [Apical] Pulse Strength Pulse Strength [Apical] Respiratory Rate 18 17 Respiratory Effort / Characteristics Respiratory Depth Respiratory Pattern Blood Pressure 140/99 Blood Pressure [Right Arm] Blood Pressure Mean 109 Blood Pressure Mean [Right Arm] Blood Pressure Position Blood Pressure Position [Right Arm] Pulse Oximetry 96 94 Oxygen Delivery Method Room Air Sepsis Recent Fever Within 48 Hours Sepsis New/Unexplained Change in Mental Status Sepsis Action Taken by Nursing 12/25/23 04:00 12/25/23 04:30 12/25/23 04:30 Temperature Temperature Source Pulse Rate 105 H Pulse Rate [Apical] Pulse Rate from SpO2 Sensor 106 H Pulse Rhythm Pulse Rhythm [Apical] Pulse Strength Pulse Strength [Apical] Respiratory Rate 15 Respiratory Effort / Characteristics Respiratory Depth Respiratory Pattern Blood Pressure 132/89 117/76 Blood Pressure [Right Arm] Blood Pressure Mean 105 94 Blood Pressure Mean [Right Arm] Blood Pressure Position Blood Pressure Position [Right Arm] Pulse Oximetry 94 Oxygen Delivery Method Room Air Sepsis Recent Fever Within 48 Hours Sepsis New/Unexplained Change in Mental Status Sepsis Action Taken by Nursing 12/25/23 05:00 12/25/23 05:00 12/25/23 05:30 Temperature Temperature Source Pulse Rate 107 H Pulse Rate [Apical] 95 H Pulse Rate from SpO2 Sensor 107 H Pulse Rhythm Pulse Rhythm [Apical] Regular Pulse Strength Pulse Strength [Apical] Normal Respiratory Rate 17 16 Respiratory Effort / Characteristics Non-Labored Spontaneous Respiratory Depth Normal Respiratory Pattern Regular Blood Pressure 132/82 Blood Pressure [Right Arm] 137/83 Blood Pressure Mean 100 Blood Pressure Mean [Right Arm] 101 Blood Pressure Position Blood Pressure Position [Right Arm] Semi-fowlers Pulse Oximetry 95 95 Oxygen Delivery Method Room Air Room Air Sepsis Recent Fever Within 48 Hours Sepsis New/Unexplained Change in Mental Status Sepsis Action Taken by Nursing 12/25/23 05:51 Temperature Temperature Source Pulse Rate Pulse Rate [Apical] 96 H Pulse Rate from SpO2 Sensor Pulse Rhythm Pulse Rhythm [Apical] Regular Pulse Strength Pulse Strength [Apical] Normal Respiratory Rate 15 Respiratory Effort / Characteristics Non-Labored Spontaneous Respiratory Depth Normal Respiratory Pattern Regular Blood Pressure Blood Pressure [Right Arm] 137/83 Blood Pressure Mean Blood Pressure Mean [Right Arm] 101 Blood Pressure Position Blood Pressure Position [Right Arm] Lying Pulse Oximetry 95 Oxygen Delivery Method Room Air Sepsis Recent Fever Within 48 Hours Sepsis New/Unexplained Change in Mental Status Sepsis Action Taken by Nursing Laboratory Data 12/25/23 03:16 12/25/23 03:16 Lab Results 12/25/23 12/25/23 Range/Units 03:16 03:20 WBC 8.80 (4.8-10.8) K/ul RBC 5.27 (4.70-6.10) M/uL Hgb 15.9 (14.0-18.0) g/dl Hct 46.2 (42.0-52.0) % MCV 87.7 (80.0-100.0) fL MCH 30.2 (25.0-34.0) pg MCHC 34.4 (32.0-36.0) g/dL RDW Std Deviation 41.7 (36.4-46.3) fL RDW Coeff of Bryanna 13.1 (11.5-14.5) % Plt Count 153 (130-400) K/uL MPV 10.3 (9.4-12.4) fL Immature Gran % (Auto) 0.7 % Neut % (Auto) 51.8 % Lymph % (Auto) 40.8 % [place] % (Auto) 5.1 % Eos % (Auto) 0.8 % Baso % (Auto) 0.8 % Neut # (Auto) 4.56 (1.40-6.50) K/uL Lymph # (Auto) 3.59 H (1.20-3.40) K/uL [place] # (Auto) 0.45 (0.11-0.59) K/uL Eos # (Auto) 0.07 (0.00-0.50) K/uL Baso # (Auto) 0.07 (0.00-0.20) K/uL Immature Gran # (Auto) 0.06 (0.01-0.20) K/uL D-Dimer 410 (0-500) ug/L FEU Sodium 139 (136-145) mmol/L Potassium 3.3 L (3.5-5.1) mmol/L Chloride 103 (98-107) mmol/L Carbon Dioxide 18 L (21-32) mmol/L Anion Gap 18 H (3-11) BUN 12 (6-23) mg/dl Creatinine 0.77 (0.6-1.4) mg/dl Est Cr Clr Drug Dosing 151.2 ml/min Est GFR ( Amer) 139.2 ml/min Est GFR (Non-Af Amer) 120.1 ml/min BUN/Creatinine Ratio 15.6 (10-20) Glucose 105 H (70-99(Fasting)) mg/dl Calcium 9.0 (8.6-10.3) mg/dl Magnesium 1.7 (1.7-2.4) mg/dl Total Bilirubin 0.6 (0.2-1.0) mg/dl Direct Bilirubin 0.1 (0-0.2) mg/dl AST 46 H (13-39) U/L ALT 32 (7-52) U/L Alkaline Phosphatase 68 (34-104) U/L Total Creatine Kinase 369 H (30-223) U/L Troponin I High Sens 3.8 (0-20) pg/ml Total Protein 7.7 (6.0-8.3) gm/dl Albumin 4.4 (3.4-5.0) gm/dl Lipase 14 (11-82) U/L TSH 2.733 (0.300-4.500) uIu/ml Salicylates < 3.0 L (3.0-30) mg/dl Acetaminophen < 3 L (10-30) ug/ml Ethyl Alcohol mg/dL 135.0 H (<10.0) mg/dl SARS-CoV-2 (PCR) NEGATIVE (Negative) Influenza Type A (PCR) Negative (Neg) Influenza Type B (PCR) Negative (Neg) RSV (RT-PCR) Negative (Neg) Administered Medications Discontinued Medications Multivitamins 10 ml/ Thiamine HCl 100 mg/ Folic Acid 1 mg/Sodium Chloride 1,011.2 mls @ 500 mls/hr IV .Q2H2M ONE Stop: 12/25/23 05:22 Last Admin: 12/25/23 05:02 Dose: 500 mls/hr Documented By: GAEL Discharge Plan Visit Data Chief Complaint: Cardiac Assessment Stated Complaint: CHEST PAIN, DEHYDRATION ED Provider: Peewee Geiger Discharge Problem: Alcohol intoxication, Anxiety, Heart palpitations, Acute dehydration Forms Stand Alone Forms: My [facility] Prescriptions Prescriptions: No Action quetiapine 100 mg tablet 100 mg PO HS bupropion HCl 100 mg tablet sustained-release 12 hr 100 mg PO QAM gabapentin 300 mg capsule 300 mg PO BID gabapentin 100 mg capsule 100 mg PO BID Rx Instructions: take along with 300 mg escitalopram oxalate 10 mg tablet 15 mg PO QAM Referrals Referrals: PCP,NO [Physician] - Discharge Problem: Alcohol intoxication Qualifiers: Complication of substance-induced condition: uncomplicated Qualified Code(s): F 10920 - Alcohol use, unspecified with intoxication, uncomplicated
[2023-12-25 03:42] LABS: Basophils # (auto) 0.07 K/uL (0.00-0.20); Basophils % (auto) 0.8 %; Eosinophils # (auto) 0.07 K/uL (0.00-0.50); Eosinophils % (auto) 0.8 %; Hematocrit (blood only) 46.2 % (42.0-52.0); Hemoglobin 15.9 g/dl (14.0-18.0); Immature Granulocytes # (auto) 0.06 K/uL (0.01-0.20); Immature Granulocytes % (auto) 0.7 %; Lymphocytes # (auto) 3.59 K/uL (1.20-3.40); Lymphocytes % (auto) 40.8 %; Mean Corpuscular Hemoglobin 30.2 pg (25.0-34.0); Mean Corpuscular Hgb Conc 34.4 g/dL (32.0-36.0); Mean Corpuscular Volume 87.7 fL (80.0-100.0); Mean Platelet Volume 10.3 fL (9.4-12.4); Monocytes # (auto) 0.45 K/uL (0.11-0.59); Monocytes % (auto) 5.1 %; Neutrophils # (auto) 4.56 K/uL (1.40-6.50); Neutrophils % (auto) 51.8 %; Platelet Count 153 K/uL (130-400); RDW Coefficient of Variation 13.1 % (11.5-14.5); RDW Standard Deviation 41.7 fL (36.4-46.3); Red Blood Count 5.27 M/uL (4.70-6.10)
[2023-12-25 03:50] LABS: Albumin Level 4.4 gm/dl (3.4-5.0); BUN Creatinine Ratio 15.6 (10-20); Bilirubin Direct 0.1 mg/dl (0-0.2); Bilirubin,Total 0.6 mg/dl (0.2-1.0); Creatinine Clr Calc Pharmacy 151.2 ml/min; Est GFR (African American) 139.2 ml/min; Est GFR (Non-African American) 120.1 ml/min; Magnesium 1.7 mg/dl (1.7-2.4); Potassium 3.3 mmol/L (3.5-5.1); Total Protein 7.7 gm/dl (6.0-8.3)
[2023-12-25 03:56] LABS: Troponin I High Sensitivity 3.8 pg/ml (0-20)
[2023-12-25 04:05] LABS: Acetaminophen < 3 ug/ml (10-30); Salicylate < 3.0 mg/dl (3.0-30); Thyroid Stimulating Hormone 2.733 uIu/ml (0.300-4.500)
[2023-12-25 04:08] LABS: D Dimer 410 ug/L FEU (0-500)
[2023-12-25 04:16] LABS: Influenza A virus by PCR Negative (Neg); Influenza B virus by PCR Negative (Neg); RSV by PCR Negative (Neg); SARS CoV2 RNA(COVID-19) Ceph NEGATIVE (Negative)
[2023-12-25] MEDS: MULTI-VITAMIN INFUSION 10 ML, THIAMINE HCL 100 MG, FOLIC ACID 1 MG in SODIUM CHLORIDE 0... IV ONE (05:02)
--- NOTE | 2023-12-25 07:30 | XRay Report ---
XR chest 1V portable HISTORY: 33 years-old Male tachycardia acute tachycardia COMPARISON: 06/07/2022 TECHNIQUE: AP view the chest FINDINGS: Cardiomediastinal and hilar silhouettes are within normal limits. No pneumothorax, pleural effusion o r overt pulmonary edema. Left upper lobe calcified pulmonary granuloma. Mild subsegmental bibasilar d ensities. Bones appear grossly intact. IMPRESSION: Mild subsegmental bibasilar opacities favor atelectasis. A mild pneumonitis considered le ss likely. ACT 112: Negative or not required by law. The above report was generated using voice recognition software. It may contain grammatical, syntax o r spelling errors. Electronically signed by: Khalif Cueto M.D. 12/25/2023 7:28 AM
--- NOTE | 2023-12-25 08:19 | Electrocardiogram Report ---
Test Reason : Blood Pressure : / mmHG Vent. Rate : 138 BPM Atrial Rate : 138 BPM P-R Int : 142 ms QRS Dur : 094 ms QT Int : 294 ms P-R-T Axes : 059 070 030 degrees QTc Int : 445 ms Sinus tachycardia Poor R wave progression, consider anterior GA vs. lead placement vs. LVH Abnormal ECG When compared with ECG of 14-NOV-2022 19:36, Vent. rate has increased BY 55 BPM Confirmed by Dl Estevez ([id number]) on 12/25/2023 8:18:52 AM Referred By: REFERRED SELF Confirmed By:Dl Estevez
[2023-12-25] MEDS ORDERED: LORazepam 1 MG/1 ML SYR ED Inj Use IV STA (10:31)
--- NOTE | 2023-12-25 10:33 | Emergency Department Note ---
ED Visit Note Patient was signed out to me at change of shift by Dr. Geiger, pending reevaluation and disposition. Patient presented with anxiety and tachycardia. He does have a history of longstanding alcohol abuse and issues with alcohol withdrawal. On my reassessment at 10:30 AM, the patient is tachycardic and tremulous. He seems somewhat confused and is having difficulty having a coherent conversation with me. Patient appears to be going through some mild to moderate alcohol withdrawal. Given his history he was ordered Ativan, IV fluids, case was discussed with the admitting hospitalist, Dr. Rangel, and the patient was placed for admission in stable condition. Wilman Cobos DO .
[2023-12-25] MEDS ORDERED: Ativan IV Alcohol Withdrawal--Active Protocol IV PRN ×2 (10:34→14:27)
[2023-12-25] MEDS ORDERED: LORazepam 3 MG in SYRINGE 1.5 ML IV PRN ×2 (10:34→14:27)
[2023-12-25] MEDS ORDERED: LORazepam 2 MG in SYRINGE 1 ML IV PRN (10:34)
[2023-12-25] MEDS ORDERED: LORazepam 1 MG in SYRINGE 0.5 ML IV PRN (10:34)
[2023-12-25] MEDS: diazePAM 5 MG/ML 10ML VIAL IV STA (10:41)
[2023-12-25] MEDS: SODIUM CHLORIDE 0.9% 1,000 ML IV ONE (10:48)
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
[2023-12-25] MEDS: LACTATED RINGER'S 1,000 ML IV ONE (11:12)
[2023-12-25] MEDS: POTASSIUM CHLORIDE CRTAB 20 MEQ TABCR PO STA (11:24)
[2023-12-25] MEDS: diazePAM 5 MG/ML 10ML VIAL IV PRN (11:33)
[2023-12-25] MEDS: THIAMINE HCL 300 MG in SODIUM CHLORIDE 0.9% 50 ML IV STA (11:33)
[2023-12-25] MEDS: MAGNESIUM SULFATE / D5W 1 GM/100 ML BAG IV SCH (11:50)
[2023-12-25] MEDS: LACTATED RINGER'S 1,000 ML IV SCH (11:51)
[2023-12-25] MEDS: LORazepam 1 MG in SYRINGE 0.5 ML IV PRN (15:17)
[2023-12-25] MEDS: LORazepam 2 MG in SYRINGE 1 ML IV PRN (19:56)
[2023-12-25] MEDS: GABAPENTIN 400 MG CAP PO SCH (21:31)
[2023-12-25] MEDS: QUEtiapine FUMARATE 25 MG TABLET PO SCH (21:31)
[2023-12-26 04:33] LABS: Alanine Aminotransferase 34 U/L (7-52); Albumin Globulin Ratio 1.4 (0.9-2); Albumin Level 3.9 gm/dl (3.4-5.0); Alkaline Phosphatase 61 U/L (34-104); Anion Gap 7 (3-11); Aspartate Aminotransferase 46 U/L (13-39); BUN Creatinine Ratio 19.7 (10-20); Blood Urea Nitrogen 12 mg/dl (6-23); Calcium 8.8 mg/dl (8.6-10.3); Carbon Dioxide 24 mmol/L (21-32); Chloride 107 mmol/L (98-107); Creatinine Clr Calc Pharmacy 190.8 ml/min; Est GFR (African American) > 150.0 ml/min; Est GFR (Non-African American) 132.1 ml/min; Globulin 2.8 gm/dl (2.5-4.0); Glucose 90 mg/dl (70-99(Fasting)); Potassium 3.7 mmol/L (3.5-5.1); Sodium 138 mmol/L (136-145); Total Protein 6.7 gm/dl (6.0-8.3)
[2023-12-26 05:14] LABS: Basophils # (auto) 0.05 K/uL (0.00-0.20); Basophils % (auto) 0.7 %; Eosinophils # (auto) 0.12 K/uL (0.00-0.50); Eosinophils % (auto) 1.8 %; Immature Granulocytes # (auto) 0.07 K/uL (0.01-0.20); Mean Corpuscular Hemoglobin 30.7 pg (25.0-34.0); Mean Corpuscular Hgb Conc 34.1 g/dL (32.0-36.0); Mean Corpuscular Volume 90.2 fL (80.0-100.0); Mean Platelet Volume 10.6 fL (9.4-12.4); Monocytes # (auto) 0.29 K/uL (0.11-0.59); Monocytes % (auto) 4.3 %; Neutrophils # (auto) 4.54 K/uL (1.40-6.50); Neutrophils % (auto) 68.2 %; Platelet Count 137 K/uL (130-400); RBC Morphology Unremarkable; RDW Coefficient of Variation 13.2 % (11.5-14.5); RDW Standard Deviation 43.8 fL (36.4-46.3); Red Blood Count 4.88 M/uL (4.70-6.10); White Blood Count 6.67 K/ul (4.8-10.8)
[2023-12-26 06:31] LABS: Amphetamines+Metham, Urine Neg (Neg); Barbiturates, Urine Neg (Neg); Benzodiazepine, Urine Pos (Neg); Cocaine, Urine Neg (Neg); MDMA (Ecstacy), Urine Neg (Neg); Marijuana, Urine Neg (Neg); Methadone, Urine Neg (Neg); Opiate, Urine Neg (Neg); Phencyclidine, Urine Neg (Neg)
[2023-12-26 06:39] LABS: Appearance Urine Cloudy (Clear); Bacteria Urine Automated Negative (Negative); Bilirubin Urine Negative (Negative); Blood Urine Negative (Negative); Color Urine Yellow; Epithelial Cell Urine Auto 0-5 /lpf (0-5); Glucose Urine UA Negative (Negative); Ketones Urine Trace (Negative); Leukocyte Esterase Urine Negative (Negative); Nitrite Urine Negative (Negative); Protein Urine Negative (Negative); RBC Urine Automated 0-4 /hpf (0-4); Specific Gravity Urine 1.014 (1.000-1.030); Urobilinogen Urine Negative (Negative); pH Urine 7.5 (4.5-7.5)
[2023-12-26] MEDS: buPROPion SR 100 MG TABCR PO SCH (08:30)
[2023-12-26] MEDS: FOLIC ACID 1 MG in SYRINGE 9.8 ML IV SCH (08:31)
[2023-12-26] MEDS: PANTOprazole 40 MG TAB PO SCH (08:31)
[2023-12-26] MEDS: THIAMINE HCL 300 MG in SODIUM CHLORIDE 0.9% 50 ML IV SCH (08:32)
[2023-12-26] MEDS: ESCITALOPRAM OXALATE 10 MG TAB PO SCH (08:32)
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
[2023-12-26] MEDS ORDERED: NON-FORMULARY MEDICATION (Escitalopram Oxalate 5 mg tablet) PO SCH (09:00)
[2023-12-26] MEDS ORDERED: chlordiazePOXIDE ALCOHOL WITHDRAWL 50MG PO STA (10:14)
[2023-12-26] MEDS: chlordiazePOXIDE HCl 25 MG CAP PO SCH (11:23)
[2023-12-26] MEDS: LORazepam 1 MG TAB SL STA (11:23)
[2023-12-27 06:08] LABS: Basophils # (auto) 0.04 K/uL (0.00-0.20); Basophils % (auto) 0.6 %; Eosinophils # (auto) 0.18 K/uL (0.00-0.50); Eosinophils % (auto) 2.8 %; Hematocrit (blood only) 42.2 % (42.0-52.0); Hemoglobin 14.8 g/dl (14.0-18.0); Immature Granulocytes # (auto) 0.03 K/uL (0.01-0.20); Immature Granulocytes % (auto) 0.5 %; Lymphocytes # (auto) 1.74 K/uL (1.20-3.40); Lymphocytes % (auto) 27.2 %; Mean Corpuscular Hemoglobin 30.1 pg (25.0-34.0); Mean Corpuscular Hgb Conc 35.1 g/dL (32.0-36.0); Mean Corpuscular Volume 85.9 fL (80.0-100.0); Mean Platelet Volume 10.6 fL (9.4-12.4); Monocytes # (auto) 0.44 K/uL (0.11-0.59); Monocytes % (auto) 6.9 %; Neutrophils # (auto) 3.96 K/uL (1.40-6.50); Platelet Count 115 K/uL (130-400); RDW Coefficient of Variation 12.6 % (11.5-14.5); RDW Standard Deviation 39.6 fL (36.4-46.3); Red Blood Count 4.91 M/uL (4.70-6.10); White Blood Count 6.39 K/ul (4.8-10.8)
[2023-12-27 06:22] LABS: Albumin Globulin Ratio 1.5 (0.9-2); Albumin Level 4.1 gm/dl (3.4-5.0); BUN Creatinine Ratio 16.2 (10-20); Bilirubin,Total 0.7 mg/dl (0.2-1.0); Calcium 8.8 mg/dl (8.6-10.3); Creatinine Clr Calc Pharmacy 187.9 ml/min; Est GFR (African American) 146.5 ml/min; Est GFR (Non-African American) 126.4 ml/min; Globulin 2.8 gm/dl (2.5-4.0); Potassium 3.4 mmol/L (3.5-5.1); Total Protein 6.9 gm/dl (6.0-8.3)
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
[2023-12-27] MEDS: POTASSIUM CHLORIDE CRTAB 20 MEQ TABCR PO STA (10:07)
[2023-12-27] MEDS: chlordiazePOXIDE HCl 25 MG CAP PO SCH (11:42)
[2023-12-27] MEDS: LORazepam 1 MG TAB SL STA (15:31)
[2023-12-27] MEDS ORDERED: hydrALAZINE HCL 20 MG/ML VIAL IV PRN (18:19)
[2023-12-27] MEDS: THIAMINE HCL 100 MG TAB PO SCH (20:06)
[2023-12-28 05:12] LABS: 7-Aminoclonaz, Confirm NEGATIVE ng/mL (<25); Hydro-Alp Ur, GC/MS NEGATIVE ng/mL (<25); Hydroxyethylflurazepam, Conf NEGATIVE ng/mL (<50); Hydroxymidazolam Ur, GC/MS NEGATIVE ng/mL (<50); Hydroxytriazolam NEGATIVE ng/mL (<50); Lorazepam, Ur GC/MS 883 ng/mL (<50); Nordiazepam, Confirm 69 ng/mL (<50); Oxazepam Ur, GC/MS NEGATIVE ng/mL (<50); Temazepam, Confirm 64 ng/mL (<50)
[2023-12-28 07:03] LABS: Basophils # (auto) 0.03 K/uL (0.00-0.20); Basophils % (auto) 0.4 %; Eosinophils % (auto) 2.7 %; Hematocrit (blood only) 43.5 % (42.0-52.0); Hemoglobin 15.3 g/dl (14.0-18.0); Immature Granulocytes # (auto) 0.03 K/uL (0.01-0.20); Immature Granulocytes % (auto) 0.4 %; Lymphocytes # (auto) 1.94 K/uL (1.20-3.40); Lymphocytes % (auto) 26.1 %; Mean Corpuscular Hemoglobin 30.2 pg (25.0-34.0); Mean Corpuscular Hgb Conc 35.2 g/dL (32.0-36.0); Mean Platelet Volume 10.8 fL (9.4-12.4); Monocytes # (auto) 0.57 K/uL (0.11-0.59); Monocytes % (auto) 7.7 %; Neutrophils # (auto) 4.66 K/uL (1.40-6.50); Neutrophils % (auto) 62.7 %; Platelet Count 134 K/uL (130-400); RDW Coefficient of Variation 12.9 % (11.5-14.5); Red Blood Count 5.06 M/uL (4.70-6.10); White Blood Count 7.43 K/ul (4.8-10.8)
[2023-12-28 07:37] LABS: Albumin Globulin Ratio 1.4 (0.9-2); Albumin Level 4.2 gm/dl (3.4-5.0); BUN Creatinine Ratio 15.7 (10-20); Bilirubin,Total 0.4 mg/dl (0.2-1.0); Calcium 8.7 mg/dl (8.6-10.3); Creatinine Clr Calc Pharmacy 181.9 ml/min; Est GFR (African American) 144.7 ml/min; Est GFR (Non-African American) 124.9 ml/min; Globulin 2.9 gm/dl (2.5-4.0); Magnesium 2.2 mg/dl (1.7-2.4); Phosphorus 3.1 mg/dl (2.5-4.9); Potassium 3.5 mmol/L (3.5-5.1); Total Protein 7.1 gm/dl (6.0-8.3)
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
[2023-12-28] MEDS: FOLIC ACID 1 MG TAB PO SCH (09:27)
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
[2023-12-28] MEDS: chlordiazePOXIDE HCl 25 MG CAP PO SCH (12:18)
== END 2023-12-28 12:21 | disposition home or self-care (01) | DRG 897 ==
LOC: ED 03:09 → SUATTDRO 10:38 → EDINP 10:38

== ENCOUNTER 2024-01-25 20:23 | Inpatient (IN) ==
--- NOTE | 2024-01-25 21:09 | Emergency Department Note ---
Impression & Plan Alcohol intoxication, Depression, Anxiety ED Provider Note NAME: MARYSOL RUTLEDGE AGE: 34 SEX: M : 1990 ARRIVES VIA: Walk-In INFORMANT: Patient, the patient's friends ED PROVIDER(S): Shayne Angulo DO CHIEF COMPLAINT: Depression and anxiety HPI: The patient is a 34-year-old male who presented to the emergency department for an evaluation of anxiety and depression. The patient has a history of alcohol abuse. He has been seen in our facility multiple times in the past. He has a history of alcohol withdrawal. The patient also has a history of depression and anxiety. He presents emergency department today because of anxiety. He stopped taking all of his medications recently. He started drinking alcohol again and using methamphetamines. The patient presented to the emergency department with friends who are concerned for his welfare. ROS: See above HPI for pertinent positives & negatives. A total of 10 systems reviewed and were otherwise negative. PAST MEDICAL HISTORY: See Below PAST SURGICAL HISTORY: See Below FAMILY HISTORY: See Below SOCIAL HISTORY: See Below HOME MEDICATIONS: See Below ALLERGIES: See Below VITALS: See Below PHYSICAL EXAMINATION: GENERAL: The patient is awake and alert. He is very anxious appearing. EYES: The conjunctivae are clear. The pupils are round and reactive. EARS, NOSE, MOUTH AND THROAT: The nose is without any evidence of any deformity. NECK: The neck is nontender and supple. RESPIRATORY: Normal respiratory effort is noted there is no evidence of wheezing rhonchi or rales CARDIOVASCULAR: Tachycardic and regular heart sounds were noted to auscultation. There is no definite murmur GASTROINTESTINAL: The abdomen is soft. Abdomen is nontender. MUSCULOSKELETAL/EXTREMITIES: There is no evidence of gross deformity full range of motion is noted in the hips and shoulders. SKIN: There is no obvious evidence of any rash. There are no petechiae, pallor or cyanosis noted. NEUROLOGIC: Patient is awake alert and oriented x3 strength is symmetric patellar reflexes are 2+ bilaterally PSYCH: The patient's affect is flat. The patient makes poor eye contact mostly evaluation. He is currently admitting to severe depression and anxiety. He is also having thoughts of hurting himself. MEDICAL DECISION MAKING: The patient is a 34-year-old male who has a history of withdrawal and alcohol abuse who presented to the emergency department for an evaluation of depression. The patient's been having problems with anxiety and depression. He has suicidal ideations as well. The patient was brought to the emergency department with friends were concerned for his safety. The patient has a history of longstanding alcohol abuse and has had withdrawal in the past. Normally the patient is not able to be medically cleared in the emergency department and requires inpatient management. He was treated with IV fluids and IV Ativan in the emergency department. Vital signs were reassuring. I discussed the patient's condition with the on-call [facility] hospitalist. They have agreed to evaluate the patient in the emergency department for further management and disposition. Triage Nursing notes reviewed. Prior medical records reviewed Vital Signs: reviewed and remarkable for no significant abnormalities Differential diagnosis: Mood disorder, infection, hypoglycemia, electrolyte abnormalities, cardiac sources, intracerebral event, toxicologic, trauma, neurologic, as well as other pathologies. ER treatment provided: See below Diagnostics interpreted by me: ECG: EKG was obtained in the emergency department. My interpretation is normal sinus rhythm at 79 bpm. There is no ectopy. There is no acute ST segment abnormalities noted. This was compared to a tracing from December 25, 2023. No changes were noted. Cardiac Monitoring: An order was placed for continuous cardiac monitoring. The monitor shows a rate of 85 bpm with sinus rhythm. Laboratory studies: As stated above and show below. Imaging studies: See below. Consultation(s): I discussed this case with Dr. Birch who is on-call for the [facility] hospitalist group. 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 Elevated liver enzymes Diplopia Anxiety and depression Depressive disorder Alcoholic hepatitis Lab test negative for COVID-19 virus No pertinent family history BRITTNY (generalized anxiety disorder) Left leg cellulitis Headache Dizziness Surgical History No pertinent past surgical history Family History Mother Other No significant family history Denies family history of Ovarian cancer Prostate cancer Myocardial infarction Breast cancer Colorectal cancer Hypertension Social History Smoking Status: Unknown if ever smoked Tobacco Type: Cigarettes Second Hand Exposure: No; Hx Alcohol Use: Yes Alcohol type: hard liquor Hx Substance Use: No Preferred Language: [place] Communication Ability: Effective Visual Impairment: No Limitations Hearing Ability: Normal 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: No Beliefs That Will Affect Care: None marital status: marital status details: Current Living Situation: Spouse current occupational status: employed How many Children do You have: 1 Feels Safe at Home: Declines to Answer Childhood Exposure to Second-Hand Smoke: No Diet: regular Dental Care, Regularly: Yes Physical Activity Frequency: Daily Seatbelt Use: always Sunscreen Use: No Assistive Devices: None Allergies Allergies Allergy/AdvReac Type Severity Reaction Status Date / Time Antihistamines - Alkylamine AdvReac Intermediate "Just Verified 11/19/23 04:18 Don't Feel Right When I Take Them" Antihistamines - Ethanolamine AdvReac Intermediate "Just Verified 11/19/23 04:18 Don't Feel Right When I Take Them" Antihistamines - AdvReac Intermediate "Just Verified 11/19/23 04:18 Ethylenediamine Don't Feel Right When I Take Them" Antihistamines - Piperazine AdvReac Intermediate "Just Verified 11/19/23 04:18 Don't Feel Right When I Take Them" Antihistamines - Piperidine AdvReac Intermediate "Just Verified 11/19/23 04:18 Don't Feel Right When I Take Them" buspirone [From BuSpar] AdvReac Intermediate Shaking/john Verified 11/19/23 04:18 mor Home Meds Previous Rx's Medication Instructions Recorded bupropion HCl 100 mg tablet,12 hr 100 mg PO QAM #30 ea 12/28/23 sustained-release chlordiazepoxide HCl 10 mg capsule 10 mg PO Q12H #2 caps 12/28/23 chlordiazepoxide HCl 25 mg capsule 25 mg PO Q8H #2 caps 12/28/23 escitalopram oxalate 10 mg tablet 10 mg PO QAM #30 tabs 12/28/23 escitalopram oxalate 5 mg tablet 5 mg PO QAM #30 tabs 12/28/23 folic acid 1 mg tablet 1 mg PO QAM #30 tabs 12/28/23 gabapentin 100 mg capsule 100 mg PO BID #60 caps 12/28/23 gabapentin 300 mg capsule 300 mg PO BID #60 caps 12/28/23 pantoprazole 40 mg tablet,delayed 40 mg PO QAM #30 tabs 12/28/23 release quetiapine 100 mg tablet 100 mg PO HS #15 tabs 12/28/23 thiamine HCl (vitamin B1) 100 mg 200 mg (2 x 100 mg) PO BID #60 tabs 12/28/23 tablet Results & Data (ED) Vital Signs Vital Signs - 24 hr 01/25/24 20:31 01/25/24 23:16 01/25/24 23:20 Temperature 36.5 C Temperature Source Temporal Artery Scan Pulse Rate 132 H 85 Pulse Rate [Apical] 87 Respiratory Rate 18 18 18 Respiratory Effort / Characteristics Non-Labored Spontaneous Non-Labored Spontaneous Respiratory Depth Normal Normal Respiratory Pattern Regular Regular Blood Pressure 155/95 H Blood Pressure [Right Arm] 134/78 Blood Pressure Mean 115 Blood Pressure Mean [Right Arm] 96 Blood Pressure Position Sitting Blood Pressure Position [Right Arm] Lying Pulse Oximetry 95 98 98 Oxygen Delivery Method Room Air Room Air Room Air Sepsis Recent Fever Within 48 Hours No Sepsis New/Unexplained Change in Mental Status N/A Sepsis Action Taken by Nursing No Action Required Home Medications Current Medication List: was personally reviewed by me Laboratory Data Attestation: I reviewed the patient's lab results. 01/25/24 20:54 01/25/24 20:54 Lab Results 01/25/24 Range/Units 20:54 WBC 5.83 (4.8-10.8) K/ul RBC 5.46 (4.70-6.10) M/uL Hgb 16.8 (14.0-18.0) g/dl Hct 48.2 (42.0-52.0) % MCV 88.3 (80.0-100.0) fL MCH 30.8 (25.0-34.0) pg MCHC 34.9 (32.0-36.0) g/dL RDW Std Deviation 47.1 H (36.4-46.3) fL RDW Coeff of Bryanna 14.6 H (11.5-14.5) % Plt Count 133 (130-400) K/uL MPV 10.1 (9.4-12.4) fL Immature Gran % (Auto) 0.3 % Neut % (Auto) 48.5 % Lymph % (Auto) 37.6 % Hawkins % (Auto) 10.5 % Eos % (Auto) 2.1 % Baso % (Auto) 1.0 % Neut # (Auto) 2.83 (1.40-6.50) K/uL Lymph # (Auto) 2.19 (1.20-3.40) K/uL Hawkins # (Auto) 0.61 H (0.11-0.59) K/uL Eos # (Auto) 0.12 (0.00-0.50) K/uL Baso # (Auto) 0.06 (0.00-0.20) K/uL Immature Gran # (Auto) 0.02 (0.01-0.20) K/uL PT 10.0 (9.0-12.0) Seconds INR 0.9 (0.9-1.1) APTT 25 (21-31) Seconds PTT Ratio 0.9 Sodium 137 (136-145) mmol/L Potassium 3.5 (3.5-5.1) mmol/L Chloride 97 L (98-107) mmol/L Carbon Dioxide 19 L (21-32) mmol/L Anion Gap 21 H (3-11) BUN 11 (6-23) mg/dl Creatinine 0.84 (0.6-1.4) mg/dl Est Cr Clr Drug Dosing 135.9 ml/min Est GFR ( Amer) 133.3 ml/min Est GFR (Non-Af Amer) 115.0 ml/min BUN/Creatinine Ratio 13.1 (10-20) Glucose 73 (70-99(Fasting)) mg/dl Calcium 9.2 (8.6-10.3) mg/dl Magnesium 2.0 (1.7-2.4) mg/dl Total Bilirubin 0.8 (0.2-1.0) mg/dl AST 97 H (13-39) U/L ALT 63 H (7-52) U/L Alkaline Phosphatase 60 (34-104) U/L Total Creatine Kinase 175 (30-223) U/L Troponin I High Sens 5.2 (0-20) pg/ml Total Protein 8.2 (6.0-8.3) gm/dl Albumin 4.7 (3.4-5.0) gm/dl Globulin 3.5 (2.5-4.0) gm/dl Albumin/Globulin Ratio 1.3 (0.9-2) Lipase 42 (11-82) U/L Salicylates < 3.0 L (3.0-30) mg/dl Acetaminophen < 3 L (10-30) ug/ml Ethyl Alcohol mg/dL 201.5 H (<10.0) mg/dl Administered Medications Discontinued Medications Sodium Chloride (Nss) 1,000 mls @ 999 mls/hr IV .Q1H1M XIOMY Stop: 01/25/24 22:00 Last Infusion: 01/26/24 00:35 Dose: Infused Documented By: Admin: 01/25/24 23:32 Dose: 999 mls/hr Documented By: Folic Acid 1 mg/ Syringe 10 mls @ 5 mls/min IV QAM STA Stop: 01/25/24 23:11 Last Admin: 01/25/24 23:32 Dose: 5 mls/min Documented By: Lorazepam (Lorazepam 1 Mg/1 Ml Syr Ed Inj Use) 1 mg IV ONE STA Stop: 01/25/24 20:49 Last Admin: 01/25/24 22:50 Dose: 1 mg Documented By: JUDY Thiamine HCl (Thiamine Hcl 100 Mg/Ml 2 Ml Vial) 100 mg IM NOW STA Stop: 01/25/24 23:08 Last Admin: 01/25/24 23:33 Dose: 100 mg Documented By: Discharge Plan Visit Data Chief Complaint: Mental Health Evaluation Stated Complaint: IN HOUSE/ABOUT A WEEK, ALCOHOL USE ED Provider: Shayne Angulo Discharge Problem: Alcohol intoxication, Depression, Anxiety Patient Disposition: Being Evaluated by Hospitalist Forms Stand Alone Forms: [facility], Suicide Prevention Resources Prescriptions Prescriptions: No Action thiamine HCl (vitamin B1) 100 mg Tablet 200 mg PO BID Qty: 60 0RF chlordiazepoxide HCl 25 mg Capsule 25 mg PO Q8H Qty: 2 0RF pantoprazole 40 mg Tablet,Delayed Release (Dr/Ec) 40 mg PO QAM Qty: 30 0RF chlordiazepoxide HCl 10 mg Capsule 10 mg PO Q12H Qty: 2 0RF folic acid 1 mg Tablet 1 mg PO QAM Qty: 30 0RF quetiapine 100 mg tablet 100 mg PO HS Qty: 15 0RF bupropion HCl 100 mg tablet sustained-release 12 hr 100 mg PO QAM Qty: 30 0RF gabapentin 300 mg capsule 300 mg PO BID Qty: 60 0RF gabapentin 100 mg capsule 100 mg PO BID Qty: 60 0RF Rx Instructions: take along with 300 mg escitalopram oxalate 10 mg tablet 10 mg PO QAM Qty: 30 0RF Rx Instructions: take with 5 mg to equal 15 mg dose escitalopram oxalate 5 mg tablet 5 mg PO QAM Qty: 30 0RF Rx Instructions: take with 10 mg to equal 15 mg dose Referrals Referrals: Bri Cervantes MD [Primary Care Provider] - Discharge Problem: Alcohol intoxication Qualifiers: Complication of substance-induced condition: uncomplicated Qualified Code(s): F 10.920 - Alcohol use, unspecified with intoxication, uncomplicated Depression Qualifiers: Depression Type: unspecified Qualified Code(s): F32.A - Depression, unspecified
[2024-01-25 21:33] LABS: Basophils # (auto) 0.06 K/uL (0.00-0.20); Eosinophils # (auto) 0.12 K/uL (0.00-0.50); Eosinophils % (auto) 2.1 %; Hematocrit (blood only) 48.2 % (42.0-52.0); Hemoglobin 16.8 g/dl (14.0-18.0); Immature Granulocytes # (auto) 0.02 K/uL (0.01-0.20); Immature Granulocytes % (auto) 0.3 %; Lymphocytes # (auto) 2.19 K/uL (1.20-3.40); Lymphocytes % (auto) 37.6 %; Mean Corpuscular Hemoglobin 30.8 pg (25.0-34.0); Mean Corpuscular Hgb Conc 34.9 g/dL (32.0-36.0); Mean Corpuscular Volume 88.3 fL (80.0-100.0); Mean Platelet Volume 10.1 fL (9.4-12.4); Monocytes # (auto) 0.61 K/uL (0.11-0.59); Monocytes % (auto) 10.5 %; Neutrophils # (auto) 2.83 K/uL (1.40-6.50); Neutrophils % (auto) 48.5 %; Platelet Count 133 K/uL (130-400); RDW Coefficient of Variation 14.6 % (11.5-14.5); RDW Standard Deviation 47.1 fL (36.4-46.3); Red Blood Count 5.46 M/uL (4.70-6.10); White Blood Count 5.83 K/ul (4.8-10.8)
[2024-01-25 21:45] LABS: Albumin Globulin Ratio 1.3 (0.9-2); Albumin Level 4.7 gm/dl (3.4-5.0); BUN Creatinine Ratio 13.1 (10-20); Bilirubin,Total 0.8 mg/dl (0.2-1.0); Calcium 9.2 mg/dl (8.6-10.3); Creatinine Clr Calc Pharmacy 135.9 ml/min; Est GFR (African American) 133.3 ml/min; Globulin 3.5 gm/dl (2.5-4.0); Potassium 3.5 mmol/L (3.5-5.1); Total Protein 8.2 gm/dl (6.0-8.3)
[2024-01-25 21:46] LABS: Acetaminophen < 3 ug/ml (10-30); Salicylate < 3.0 mg/dl (3.0-30)
[2024-01-25 21:51] LABS: Troponin I High Sensitivity 5.2 pg/ml (0-20)
[2024-01-25 21:55] LABS: INR 0.9 (0.9-1.1); Partial Thromboplastin Ratio 0.9; Partial Thromboplastin Time 25 Seconds (21-31)
[2024-01-25] MEDS: LORazepam 1 MG/1 ML SYR ED Inj Use IV STA (22:50)
[2024-01-25] MEDS ORDERED: Ativan IV Alcohol Withdrawal--Active Protocol IV PRN (23:07)
--- NOTE | 2024-01-25 23:13 | History & Physical Report ---
Date of Service January 25, 2024 Assessment & Plan (1) Alcohol intoxication: (2) Alcohol withdrawal: (3) Elevated liver enzymes: (4) Post traumatic stress disorder (PTSD): (5) Depression: (6) Anxiety: (7) Heart palpitations: (8) Alcohol use disorder, severe, dependence: (9) Methamphetamine use: Plan Alcohol withdrawal/alcohol intoxication/severe alcohol use disorder and dependence/methamphetamine abuse- Patient reports that he was drinking alcohol to treat the effect of increased heart rate due to the methamphetamine use Alcohol level is 201.9, urine drug screen is pending [facility] protocol with IV Ativan Upon discharge last visit, from 12/24-12/28/2023 resume the following: Chlo rdiazepoxide 25 mg p.o. every 8 hours, gabapentin 300 mg p.o. twice daily, Seroquel 100 mg at bedtime Give thiamine 100 mg IV and folic acid 1 mg IV this evening Resume usual dosing of thiamine 200 mg p.o. twice daily and folic acid 1 mg p.o. daily Alcohol cessation counseling Palpitations were improved with lorazepam 1 mg IV given in the ED and IV fluids Status post 1 L normal saline bolus in the ED, then placed on maintenance fluids NSS + KCl 20 mill equivalents at 150 mL/h x 2 L PTSD/depression with anxiety- Resume part of medications as noted above Temporarily hold bupropion and escitalopram so as not to resume to many medications at once Consult psychiatry Abnormal LFTs- AST 97, ALT 63, are higher than his baseline Known history of enlarged liver He does report some mild discomfort right upper quadrant If liver enzymes are persistent or increased, and develops more significant right upper quadrant discomfort, may need repeat imaging History of Present Illness Chief Complaint: The patient presents to the emergency department for evaluation of anxiety and depression, and notes use of alcohol to help suppress an increased heart rate secondary to methamphetamine use Primary Care Provider: Bri Cervantes MD The patient is a 34-year-old male with a past medical history including alcohol use disorder, PTSD, suicidal ideations, depression with anxiety, elevated liver enzymes, enlarged liver and seasonal allergies. His most recent admission was from 12/24-12/28/2023 for similar symptoms. He reports that he is not taking any of his psychiatric medications for the last 10 to 14 days. As noted above, he reports that he has been using alcohol to try to slow down his increased heart rate, which he reports is causing him some chest discomfort. Allergies Allergy/AdvReac Type Severity Reaction Status Date / Time Antihistamines - Alkylamine AdvReac Intermediate "Just Verified 11/19/23 04:18 Don't Feel Right When I Take Them" Antihistamines - Ethanolamine AdvReac Intermediate "Just Verified 11/19/23 04:18 Don't Feel Right When I Take Them" Antihistamines - AdvReac Intermediate "Just Verified 11/19/23 04:18 Ethylenediamine Don't Feel Right When I Take Them" Antihistamines - Piperazine AdvReac Intermediate "Just Verified 11/19/23 04:18 Don't Feel Right When I Take Them" Antihistamines - Piperidine AdvReac Intermediate "Just Verified 11/19/23 04:18 Don't Feel Right When I Take Them" buspirone [From BuSpar] AdvReac Intermediate Shaking/john Verified 11/19/23 04:18 mor Home Medications Medication Instructions Recorded Confirmed Type bupropion HCl 100 mg tablet,12 hr 100 mg PO QAM #30 ea 12/28/23 Rx sustained-release chlordiazepoxide HCl 10 mg capsule 10 mg PO Q12H #2 caps 12/28/23 Rx chlordiazepoxide HCl 25 mg capsule 25 mg PO Q8H #2 caps 12/28/23 Rx escitalopram oxalate 10 mg tablet 10 mg PO QAM #30 tabs 12/28/23 12/25/23 Rx escitalopram oxalate 5 mg tablet 5 mg PO QAM #30 tabs 12/28/23 Rx folic acid 1 mg tablet 1 mg PO QAM #30 tabs 12/28/23 Rx gabapentin 100 mg capsule 100 mg PO BID #60 caps 12/28/23 Rx gabapentin 300 mg capsule 300 mg PO BID #60 caps 12/28/23 Rx pantoprazole 40 mg tablet,delayed 40 mg PO QAM #30 tabs 12/28/23 Rx release quetiapine 100 mg tablet 100 mg PO HS #15 tabs 12/28/23 12/25/23 Rx thiamine HCl (vitamin B1) 100 mg 200 mg (2 x 100 mg) PO BID #60 tabs 12/28/23 Rx tablet Past Med/Surg History Medical History (Updated 01/26/24 @ 04:04 by Reji Villavicencio MD) Methamphetamine use Hypokalemia Post traumatic stress disorder (PTSD) Alcohol use disorder, severe, dependence Suicidal ideations COVID-19 Transaminitis Acid reflux Tobacco abuse Homicidal ideation Depression with suicidal ideation Alcohol intoxication 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 Elevated liver enzymes Diplopia Anxiety and depression Depressive disorder Alcoholic hepatitis Lab test negative for COVID-19 virus No pertinent family history BRITTNY (generalized anxiety disorder) Left leg cellulitis Headache Dizziness Surgical History No pertinent past surgical history Family History Mother Other No significant family history Denies family history of Ovarian cancer Prostate cancer Myocardial infarction Breast cancer Colorectal cancer Hypertension Social History Smoking Status: Unknown if ever smoked Tobacco Type: Cigarettes Second Hand Exposure: No; Hx Alcohol Use: Yes Alcohol type: hard liquor Hx Substance Use: No Preferred Language: Citizen Of [place] Communication Ability: Effective Visual Impairment: No Limitations Hearing Ability: Normal 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 Beliefs That Will Affect Care: None marital status: marital status details: Current Living Situation: Spouse current occupational status: employed How many Children do You have: 1 Feels Safe at Home: Declines to Answer Childhood Exposure to Second-Hand Smoke: No Diet: regular Dental Care, Regularly: Yes Physical Activity Frequency: Daily Seatbelt Use: always Sunscreen Use: No Assistive Devices: None Review of Systems Review of Systems: The patient denies cough, lower extremity swelling, sore throat, fevers, chills, sweats, weight change, fatigue, nausea, vomiting, diarrhea , constipation, abdominal pain, pelvic pain, blood in urine or stool, dysuria, urinary frequency or urgency, lightheadedness, dizziness, headache, memory loss, loss of consciousness, rash, abnormal bruising or bleeding, imbalance, focal or generalized weakness, numbness or tingling in arms or legs, generalized arthralgias or myalgias, back or neck pain, or night sweats. The review of systems is otherwise negative other than for that already noted above, and at least 10 systems have been reviewed. Physical Exam Physical Exam: The patient is awake, alert and oriented 3, well developed and well nourished, normocephalic and atraumatic, lying in bed and in no acute distress. HEENT--PERRL, EOMI, mucous membranes and oropharynx dry. Neck--supple. No JVD. No bruits. Thyroid normal, trachea midline, no adenopathy. Heart--tachycardic and regular. No murmurs, rubs or gallops. Lungs--clear bilaterally, no respiratory distress, no accessory muscle use. Abdomen--normal bowel sounds and soft. Nontender. Nondistended, no hernias or masses, no organomegaly. Extremities-- No edema. Dermatologic--normal skin turgor, normal color, no abnormal lymph nodes, no rash. Neurologic--cranial nerves II through XII grossly intact. Rheumatologic--normal range of motion. Psychiatric--mildly anxious Results & Data Results & Data Vital Signs (Past 12 Hours) Vital Signs Temp Pulse Resp BP Pulse Ox O2 Del Method 01/25/24 20:31 36.5 C 132 H 18 155/95 H 95 Room Air Laboratory Results Laboratory Results WBC 5.83 K/ul (4.8-10.8) 01/25/24 20:54 RBC 5.46 M/uL (4.70-6.10) 01/25/24 20:54 Hgb 16.8 g/dl (14.0-18.0) 01/25/24 20:54 Hct 48.2 % (42.0-52.0) 01/25/24 20:54 MCV 88.3 fL (80.0-100.0) 01/25/24 20:54 MCH 30.8 pg (25.0-34.0) 01/25/24 20:54 MCHC 34.9 g/dL (32.0-36.0) 01/25/24 20:54 RDW Std Deviation 47.1 fL (36.4-46.3) H 01/25/24 20:54 RDW Coeff of Bryanna 14.6 % (11.5-14.5) H 01/25/24 20:54 Plt Count 133 K/uL (130-400) 01/25/24 20:54 MPV 10.1 fL (9.4-12.4) 01/25/24 20:54 Immature Gran % (Auto) 0.3 % 01/25/24 20:54 Neut % (Auto) 48.5 % 01/25/24 20:54 Lymph % (Auto) 37.6 % 01/25/24 20:54 Meagher % (Auto) 10.5 % 01/25/24 20:54 Eos % (Auto) 2.1 % 01/25/24 20:54 Baso % (Auto) 1.0 % 01/25/24 20:54 Neut # (Auto) 2.83 K/uL (1.40-6.50) 01/25/24 20:54 Lymph # (Auto) 2.19 K/uL (1.20-3.40) 01/25/24 20:54 Meagher # (Auto) 0.61 K/uL (0.11-0.59) H 01/25/24 20:54 Eos # (Auto) 0.12 K/uL (0.00-0.50) 01/25/24 20:54 Baso # (Auto) 0.06 K/uL (0.00-0.20) 01/25/24 20:54 Immature Gran # (Auto) 0.02 K/uL (0.01-0.20) 01/25/24 20:54 PT 10.0 Seconds (9.0-12.0) 01/25/24 20:54 INR 0.9 (0.9-1.1) 01/25/24 20:54 APTT 25 Seconds (21-31) 01/25/24 20:54 PTT Ratio 0.9 01/25/24 20:54 Sodium 137 mmol/L (136-145) 01/25/24 20:54 Potassium 3.5 mmol/L (3.5-5.1) 01/25/24 20:54 Chloride 97 mmol/L (98-107) L 01/25/24 20:54 Carbon Dioxide 19 mmol/L (21-32) L 01/25/24 20:54 Anion Gap 21 (3-11) H 01/25/24 20:54 BUN 11 mg/dl (6-23) 01/25/24 20:54 Creatinine 0.84 mg/dl (0.6-1.4) 01/25/24 20:54 Est Cr Clr Drug Dosing 135.9 ml/min 01/25/24 20:54 Est GFR ( Amer) 133.3 ml/min 01/25/24 20:54 Est GFR (Non-Af Amer) 115.0 ml/min 01/25/24 20:54 BUN/Creatinine Ratio 13.1 (10-20) 01/25/24 20:54 Glucose 73 mg/dl (70-99(Fasting)) 01/25/24 20:54 Calcium 9.2 mg/dl (8.6-10.3) 01/25/24 20:54 Magnesium 2.0 mg/dl (1.7-2.4) 01/25/24 20:54 Total Bilirubin 0.8 mg/dl (0.2-1.0) 01/25/24 20:54 AST 97 U/L (13-39) H 01/25/24 20:54 ALT 63 U/L (7-52) H 01/25/24 20:54 Alkaline Phosphatase 60 U/L (34-104) 01/25/24 20:54 Total Creatine Kinase 175 U/L (30-223) 01/25/24 20:54 Troponin I High Sens 5.2 pg/ml (0-20) 01/25/24 20:54 Total Protein 8.2 gm/dl (6.0-8.3) 01/25/24 20:54 Albumin 4.7 gm/dl (3.4-5.0) 01/25/24 20:54 Globulin 3.5 gm/dl (2.5-4.0) 01/25/24 20:54 Albumin/Globulin Ratio 1.3 (0.9-2) 01/25/24 20:54 Lipase 42 U/L (11-82) 01/25/24 20:54 Salicylates < 3.0 mg/dl (3.0-30) L 01/25/24 20:54 Acetaminophen < 3 ug/ml (10-30) L 01/25/24 20:54 Ethyl Alcohol mg/dL 201.5 mg/dl (<10.0) H 01/25/24 20:54 Code Status & VTE Plan Code Status Full code VTE Prophylaxis Plan VTE Prophylaxis will be ordered: Yes PG Care Time/CCT Total # of Minutes Spent Total Time Spent with Patient: Total time spent is greater than 50% in coordination of care (as documented) at patient's floor/unit and/or counseling patient: Coding Level of Care Code 47554 INT INP/OBS CARE MIN Diagnoses Alcohol intoxication F10.920 Complication of substance-induced condition: uncomplicated Alcohol withdrawal syndrome, with delirium F10.931 Complication of substance-induced condition: with delirium Elevated liver enzymes R74.8 Post traumatic stress disorder (PTSD) F43.10 Depression F32.A Depression Type: unspecified Anxiety F41.9 Heart palpitations R00.2 Alcohol use disorder, severe, dependence F10.20 Methamphetamine use F15.10 (1) Alcohol intoxication Complication of substance-induced condition: uncomplicated Qualified Code(s): F10.920 - Alcohol use, unspecified with intoxication, uncomplicated (2) Alcohol withdrawal Complication of substance-induced condition: with delirium Qualified Code(s): F10.931 - Alcohol use, unspecified with withdrawal delirium (5) Depression Depression Type: unspecified Qualified Code(s): F32.A - Depression, unspec ified
[2024-01-25] MEDS: FOLIC ACID 1 MG in SYRINGE 9.8 ML IV STA (23:32)
[2024-01-25] MEDS: SODIUM CHLORIDE 0.9% 1,000 ML IV SCH (23:32)
[2024-01-25] MEDS: THIAMINE HCL 100 MG/ML 2 ML VIAL IM STA (23:33)
[2024-01-26] MEDS: NSS + 20MEQ KCL 20 MEQ/1,000 ML BAG IV SCH (00:41)
[2024-01-26] MEDS: LORazepam 3 MG in SYRINGE 1.5 ML IV PRN (04:14)
[2024-01-26 04:59] LABS: Albumin Globulin Ratio 1.4 (0.9-2); Albumin Level 3.8 gm/dl (3.4-5.0); BUN Creatinine Ratio 11.3 (10-20); Bilirubin,Total 0.8 mg/dl (0.2-1.0); Calcium 8.3 mg/dl (8.6-10.3); Creatinine Clr Calc Pharmacy 142.7 ml/min; Est GFR (Non-African American) 117.4 ml/min; Globulin 2.7 gm/dl (2.5-4.0); Magnesium 1.8 mg/dl (1.7-2.4); Potassium 3.4 mmol/L (3.5-5.1); Total Protein 6.5 gm/dl (6.0-8.3)
[2024-01-26] MEDS: chlordiazePOXIDE HCl 25 MG CAP PO SCH (06:07)
--- NOTE | 2024-01-26 07:24 | Electrocardiogram Report ---
Test Reason : Blood Pressure : / mmHG Vent. Rate : 079 BPM Atrial Rate : 079 BPM P-R Int : 144 ms QRS Dur : 104 ms QT Int : 384 ms P-R-T Axes : 038 074 062 degrees QTc Int : 440 ms Normal sinus rhythm Normal ECG When compared with ECG of 25-DEC-2023 03:14, Vent. rate has decreased BY 59 BPM Confirmed by Gustabo Victoria ([id number]) on 01/26/2024 7:24:07 AM Referred By: REFERRED SELF Confirmed By:Gustabo Victoria
[2024-01-26] MEDS: THIAMINE HCL 100 MG TAB PO SCH (08:13)
[2024-01-26] MEDS: GABAPENTIN 300 MG CAP PO SCH (08:13)
[2024-01-26] MEDS: FOLIC ACID 1 MG TAB PO SCH (08:13)
[2024-01-26] MEDS: PANTOprazole 40 MG TAB PO SCH (08:13)
--- NOTE | 2024-01-26 08:20 | Hospitalist Progress Note ---
Date of Service January 26, 2024 Assessment & Plan (1) Alcohol intoxication: Plan: 34 M with history of substance use disorder, severe alcohol use disorder/dependence who presented to the hospital for alcohol withdrawal. Alcohol intoxication/alcohol withdrawal -Alcohol level 201.9. UDS pending. -S/p IV thiamine 100 mg, IV folic acid 1 mg in the ED. * Continue AWSS protocol with IV Ativan * Resume home Librium 25 mg every 8 hours, gabapentin 300 mg twice daily, Seroquel 100 mg nightly * Resume home thiamine 200 mg p.o. twice daily, folic acid 1 mg p.o. daily * As needed Zofran for nausea PTSD/depression/anxiety -Bupropion, escitalopram held on admission. -Psychiatry consulted. * Resume home bupropion, escitalopram once clinically improved. * Continue Seroquel Elevated LFTs -AST 97, ALT 63, above baseline. Already downtrending this morning. -Patient reported RUQ discomfort on admission. This appears to have resolved. * Continue to trend Code: Full code Dispo: Med-Surg FEN/GI: Regular DVT Prophylaxis: PT/OT: No Consults: Psychiatry Case Management: No (2) Alcohol withdrawal: (3) Elevated liver enzymes: (4) Post traumatic stress disorder (PTSD): (5) Depression: (6) Anxiety: (7) Heart palpitations: (8) Alcohol use disorder, severe, dependence: (9) Methamphetamine use: Admission and Anticipated Discharge Date Admission Date: January 25, 2024 Supervising Physician Co-Signing Physician Notes Attending Physician Supervision Note: I independently interviewed and examined the patient and verified the abel history and physical, reviewed labs and image studies and agree with findings and care plan noted above. Alcohol withdrawal - librium, AWSS, Polysubstance use ds - -Per psych - Not a threat to self or others. -CM to explore residential treatment facility MDD, BRITTNY, PTSD - Per psych - d/c seroquel since it can lower seizure threshold while he is withdrawing from alcohol -holding wellbutrin and lexapro. Subjective Patient is asleep in the room on arrival this morning. Easily aroused to voice. Reports some anxiety, as well as nausea and confusion. Denies vomiting. No SOB, chest pain, headache, dizziness, vision changes, or abdominal pain. Review of Systems Review of Systems: All systems reviewed & are unremarkable except as noted in HPI & below Physical Exam Physical Exam: General: Slightly diaphoretic, no acute distress. Resp: good inspiratory effort, no labored breathing HEENT: conjunctivae appear clear, no audible congestion, no swelling noted face or lips Skin: skin appears dry, normal coloration, no rash visible on exposed skin areas Neuro: alert and oriented x3, no focal deficits appreciated Psych: euthymic affect, pleasant and interactive, logical thought process Results & Data Results & Data Vital Signs (Past 12 Hours) Vital Signs Temp Pulse Pulse Resp BP BP Pulse Ox 01/26/24 07:44 78 01/26/24 07:10 36.8 C 77 22 128/69 94 01/26/24 06:00 139/74 01/26/24 06:00 80 13 96 01/26/24 05:50 82 20 94 01/26/24 05:40 84 21 94 01/26/24 05:30 78 19 94 01/26/24 05:20 81 16 95 01/26/24 05:10 78 94 01/26/24 05:00 128/78 01/26/24 05:00 83 20 93 01/26/24 04:50 79 18 94 01/26/24 04:47 01/26/24 04:40 98 H 19 95 01/26/24 04:30 78 19 94 01/26/24 04:27 79 16 139/86 94 01/26/24 04:20 78 22 94 01/26/24 04:10 81 13 95 01/26/24 04:00 139/86 01/26/24 04:00 85 15 95 01/26/24 04:00 01/26/24 03:50 81 16 95 01/26/24 03:45 144/108 H 01/26/24 03:45 18 01/26/24 03:40 81 17 01/26/24 03:30 75 19 01/26/24 03:20 83 22 01/26/24 03:10 77 19 01/26/24 03:00 76 17 01/26/24 02:50 74 15 01/26/24 02:40 81 16 01/26/24 02:30 73 16 01/26/24 02:20 76 17 01/26/24 02:10 81 18 01/26/24 02:00 84 18 01/26/24 01:50 83 17 01/26/24 01:40 79 22 01/26/24 01:36 75 01/26/24 01:30 94 H 24 01/26/24 01:20 96 H 22 01/26/24 01:10 88 24 01/26/24 01:00 83 17 01/26/24 00:50 89 18 01/26/24 00:40 110 H 23 01/26/24 00:30 82 18 01/26/24 00:20 81 01/26/24 00:10 96 H 17 01/26/24 00:10 96 H 01/25/24 23:20 85 18 98 01/25/24 23:16 87 18 134/78 98 01/25/24 20:31 36.5 C 132 H 18 155/95 H 95 Pulse Ox O2 Del Method O2 Del Method 01/26/24 07:44 01/26/24 07:10 Room Air 01/26/24 06:00 01/26/24 06:00 01/26/24 05:50 01/26/24 05:40 01/26/24 05:30 01/26/24 05:20 01/26/24 05:10 01/26/24 05:00 01/26/24 05:00 01/26/24 04:50 01/26/24 04:47 Room Air 01/26/24 04:40 01/26/24 04:30 01/26/24 04:27 Room Air 01/26/24 04:20 01/26/24 04:10 01/26/24 04:00 01/26/24 04:00 01/26/24 04:00 94 Room Air 01/26/24 03:50 01/26/24 03:45 01/26/24 03:45 01/26/24 03:40 01/26/24 03:30 01/26/24 03:20 01/26/24 03:10 01/26/24 03:00 01/26/24 02:50 01/26/24 02:40 01/26/24 02:30 01/26/24 02:20 01/26/24 02:10 01/26/24 02:00 01/26/24 01:50 01/26/24 01:40 01/26/24 01:36 01/26/24 01:30 01/26/24 01:20 01/26/24 01:10 01/26/24 01:00 01/26/24 00:50 01/26/24 00:40 01/26/24 00:30 01/26/24 00:20 01/26/24 00:10 01/26/24 00:10 01/25/24 23:20 Room Air 01/25/24 23:16 Room Air 01/25/24 20:31 Room Air Resident Activity Tracking Resident Involvement: Resident Care Provided Care Provided: Adult Hospital Medicine (1) Alcohol intoxication Complication of substance-induced condition: uncomplicated Qualified Code(s): F10.920 - Alcohol use, unspecified with intoxication, uncomplicated (2) Alcohol withdrawal Complication of substance-induced condition: with delirium Qualified Code(s): F10.931 - Alcohol use, unspecified with withdrawal delirium (5) Depression Depression Type: unspecified Qualified Code(s): F32.A - Depression, unspecified
[2024-01-26] MEDS: ONDANSETRON INJ 2 MG/ML 2 ML VIAL IV PRN (08:40)
[2024-01-26] MEDS: LORazepam 2 MG in SYRINGE 1 ML IV PRN (08:55)
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
[2024-01-26 17:11] LABS: Appearance Urine Clear (Clear); Bilirubin Urine Negative (Negative); Blood Urine Negative (Negative); Color Urine Yellow; Glucose Urine UA Negative (Negative); Ketones Urine 1+ (Negative); Leukocyte Esterase Urine Negative (Negative); Nitrite Urine Negative (Negative); Protein Urine Negative (Negative); Urobilinogen Urine Negative (Negative); pH Urine 6.5 (4.5-7.5)
[2024-01-26 17:35] LABS: Amphetamines+Metham, Urine Neg (Neg); Barbiturates, Urine Neg (Neg); Benzodiazepine, Urine Pos (Neg); Cocaine, Urine Neg (Neg); MDMA (Ecstacy), Urine Neg (Neg); Marijuana, Urine Neg (Neg); Methadone, Urine Neg (Neg); Opiate, Urine Neg (Neg); Phencyclidine, Urine Neg (Neg)
[2024-01-26] MEDS: QUEtiapine FUMARATE 100 MG TABLET PO SCH (20:40)
[2024-01-26] MEDS ORDERED: QUEtiapine FUMARATE 100 MG TABLET PO SCH (21:00)
[2024-01-26] MEDS: LORazepam 1 MG in SYRINGE 0.5 ML IV PRN (21:33)
[2024-01-27 06:43] LABS: Alanine Aminotransferase 45 U/L (7-52); Albumin Globulin Ratio 1.4 (0.9-2); Albumin Level 4.2 gm/dl (3.4-5.0); Alkaline Phosphatase 52 U/L (34-104); Anion Gap 7 (3-11); Aspartate Aminotransferase 61 U/L (13-39); BUN Creatinine Ratio 11.3 (10-20); Bilirubin,Total 0.8 mg/dl (0.2-1.0); Blood Urea Nitrogen 7 mg/dl (6-23); Calcium 9.3 mg/dl (8.6-10.3); Carbon Dioxide 27 mmol/L (21-32); Chloride 105 mmol/L (98-107); Creatinine Clr Calc Pharmacy 187.7 ml/min; Est GFR (African American) > 150.0 ml/min; Est GFR (Non-African American) 130.3 ml/min; Globulin 2.9 gm/dl (2.5-4.0); Glucose 96 mg/dl (70-99(Fasting)); Potassium 3.4 mmol/L (3.5-5.1); Sodium 139 mmol/L (136-145); Total Protein 7.1 gm/dl (6.0-8.3)
[2024-01-27] MEDS: ESCITALOPRAM OXALATE 10 MG TAB PO SCH (08:10)
[2024-01-27] MEDS: buPROPion HCl 100 MG TABLET PO SCH (08:11)
--- NOTE | 2024-01-27 08:19 | Hospitalist Progress Note ---
Date of Service January 27, 2024 Assessment & Plan (1) Alcohol intoxication: Plan: 34 M with history of substance use disorder, severe alcohol use disorder/dependence who presented to the hospital for alcohol withdrawal. Alcohol intoxication/alcohol withdrawal -Alcohol level 201.9. UDS pending. -S/p IV thiamine 100 mg, IV folic acid 1 mg in the ED. * Continue AWSS protocol with IV Ativan * Resume home Librium 25 mg every 8 hours, gabapentin 300 mg twice daily, Seroquel 100 mg nightly * Resume home thiamine 200 mg p.o. twice daily, folic acid 1 mg p.o. daily * As needed Zofran for nausea PTSD/depression/anxiety -Bupropion, escitalopram held on admission. -Psychiatry consulted. * Continue home bupropion, escitalopram. * Continue Seroquel Elevated LFTs -AST 97, ALT 63, above baseline. AST 61 ALT 45 today. * Continue to trend Code: Full code Dispo: Med-Surg FEN/GI: Regular DVT Prophylaxis: PT/OT: No Consults: Psychiatry Case Management: No (2) Alcohol withdrawal: (3) Elevated liver enzymes: (4) Post traumatic stress disorder (PTSD): (5) Depression: (6) Anxiety: (7) Heart palpitations: (8) Alcohol use disorder, severe, dependence: (9) Methamphetamine use: Admission and Anticipated Discharge Date Admission Date: January 25, 2024 Supervising Physician Co-Signing Physician Notes Attending Physician Supervision Note: I independently interviewed and examined the patient and verified the abel history and physical, reviewed labs and image studies and agree with findings and care plan noted above. Alcohol withdrawal - librium, AWSS, Polysubstance use ds - -CM to explore inpatient D and A facility MDD, BRITTNY, PTSD - -continue home meds wellbutrin and lexapro. -resumed seroquel as well. Subjective Patient in bed awake and alert, working with physical therapy on arrival. He has no subjective complaints. However, he would like to know when he can go home. Review of Systems Review of Systems: All systems reviewed & are unremarkable except as noted in HPI & below Physical Exam Physical Exam: General: no acute distress, speaking in full sentences Resp: good inspiratory effort, no labored breathing HEENT: conjunctivae appear clear, no audible congestion, no swelling noted face or lips Skin: skin appears dry, normal coloration, no rash visible on exposed skin areas Neuro: alert and oriented x3, no focal deficits appreciated Psych: euthymic affect, pleasant and interactive, logical thought process Results & Data Results & Data Vital Signs (Past 12 Hours) Vital Signs Temp Pulse Pulse Resp BP Pulse Ox O2 Del Method 01/27/24 07:52 36.4 C L 83 17 122/77 96 Room Air 01/27/24 03:13 36.5 C 69 18 127/85 96 Room Air 01/26/24 23:11 36.8 C 78 17 131/86 95 Room Air 01/26/24 22:23 70 Resident Activity Tracking Resident Involvement: Resident Care Provided Care Provided: Adult Hospital Medicine (1) Alcohol intoxication Complication of substance-induced condition: uncomplicated Qualified Code(s): F10.920 - Alcohol use, unspecified with intoxication, uncomplicated (2) Alcohol withdrawal Complication of substance-induced condition: with delirium Qualified Code(s): F10.931 - Alcohol use, unspecified with withdrawal delirium (5) Depression Depression Type: unspecified Qualified Code(s): F32.A - Depression, unspecified
[2024-01-28 07:35] LABS: Albumin Globulin Ratio 1.5 (0.9-2); Albumin Level 4.1 gm/dl (3.4-5.0); BUN Creatinine Ratio 13.9 (10-20); Bilirubin,Total 0.5 mg/dl (0.2-1.0); Calcium 9.2 mg/dl (8.6-10.3); Creatinine Clr Calc Pharmacy 159.5 ml/min; Est GFR (African American) 142.1 ml/min; Est GFR (Non-African American) 122.6 ml/min; Globulin 2.8 gm/dl (2.5-4.0); Magnesium 2.1 mg/dl (1.7-2.4); Potassium 3.5 mmol/L (3.5-5.1); Total Protein 6.9 gm/dl (6.0-8.3)
--- NOTE | 2024-01-28 07:43 | Hospitalist Progress Note ---
Date of Service January 28, 2024 Assessment & Plan (1) Alcohol intoxication: Plan: 34 M with history of substance use disorder, severe alcohol use disorder/dependence who presented to the hospital for alcohol withdrawal. Alcohol intoxication/alcohol withdrawal -Alcohol level 201.9. UDS pending. -S/p IV thiamine 100 mg, IV folic acid 1 mg in the ED. * Continue AWSS protocol with IV Ativan * Resume home Librium 25 mg every 8 hours, gabapentin 300 mg twice daily, * Seroquel 100 mg nightly, on hold during withdrawal period. * Resume home thiamine 200 mg p.o. twice daily, folic acid 1 mg p.o. daily * As needed Zofran for nausea PTSD/depression/anxiety -Bupropion, escitalopram held on admission. -Psychiatry consulted. * Continue home bupropion, escitalopram. * Will DC Seroquel via psych during withdrawal period d/t lowering seizure threshold. Elevated LFTs -AST 97, ALT 63, above baseline. live enzymes improving. * Continue to trend Code: Full code Dispo: Med-Surg FEN/GI: Regular DVT Prophylaxis: PT/OT: No Consults: Psychiatry Case Management: No (2) Alcohol withdrawal: (3) Elevated liver enzymes: (4) Post traumatic stress disorder (PTSD): (5) Depression: (6) Anxiety: (7) Alcohol use disorder, severe, dependence: (8) Methamphetamine use: Admission and Anticipated Discharge Date Admission Date: January 25, 2024 Subjective Patient was seen bedside this AM. A little shaky at this time. No other issues or concerns. Review of Systems Review of Systems: All systems reviewed & are unremarkable except as noted in Subjective Physical Exam Physical Exam: General: no acute distress, speaking in full sentences Resp: good inspiratory effort, no labored breathing HEENT: conjunctivae appear clear, no audible congestion, no swelling noted face or lips Skin: skin appears dry, normal coloration, no rash visible on exposed skin areas Neuro: alert and oriented x3, no focal deficits appreciated Psych: euthymic affect, pleasant and interactive, logical thought process Results & Data Results & Data Vital Signs (Past 12 Hours) Vital Signs Temp Pulse Pulse Resp BP Pulse Ox O2 Del Method 01/28/24 07:20 61 01/28/24 06:18 36.4 C L 80 18 120/78 96 Room Air 01/28/24 03:00 36.5 C 74 17 119/77 97 Room Air 01/27/24 22:44 36.7 C 91 H 18 126/88 96 Room Air 01/27/24 22:00 72 01/27/24 21:17 36.9 C 88 18 136/85 95 Room Air 01/27/24 19:51 36.4 C L 88 17 117/81 96 Room Air (1) Alcohol intoxication Complication of substance-induced condition: uncomplicated Qualified Code(s): F10.920 - Alcohol use, unspecified with intoxication, uncomplicated (2) Alcohol withdrawal Complication of substance-induced condition: with delirium Qualified Code(s): F10.931 - Alcohol use, unspecified with withdrawal delirium (5) Depression Depression Type: unspecified Qualified Code(s): F32.A - Depression, unspecif ied
--- NOTE | 2024-01-28 12:40 | Discharge Summary ---
Date of Service January 28, 2024 Admission HPI Per Admitting Provider The patient is a 34-year-old male with a past medical history including alcohol use disorder, PTSD, suicidal ideations, depression with anxiety, elevated liver enzymes, enlarged liver and seasonal allergies. His most recent admission was from 12/24-12/28/2023 for similar symptoms. He reports that he is not taking any of his psychiatric medications for the last 10 to 14 days. As noted above, he reports that he has been using alcohol to try to slow down his increased heart rate, which he reports is causing him some chest discomfort. Admission Exam Per Admitting Provider The patient is awake, alert and oriented 3, well developed and well nourished, normocephalic and atraumatic, lying in bed and in no acute distress. HEENT--PERRL, EOMI, mucous membranes and oropharynx dry. Neck--supple. No JVD. No bruits. Thyroid normal, trachea midline, no adenopathy. Heart--tachycardic and regular. No murmurs, rubs or gallops. Lungs--clear bilaterally, no respiratory distress, no accessory muscle use. Abdomen--normal bowel sounds and soft. Nontender. Nondistended, no hernias or masses, no organomegaly. Extremities-- No edema. Dermatologic--normal skin turgor, normal color, no abnormal lymph nodes, no rash. Neurologic--cranial nerves II through XII grossly intact. Rheumatologic--normal range of motion. Psychiatric--mildly anxious Principal Diagnosis Alcohol withdrawal Discharge Exam Constitutional: well-appearing, no acute distress HEENT: NCAT, no conjunctival injection CV: regular rhythm, no murmur appreciated, extremities well-perfused, no LE edema Resp: CTABL, no wheezes/rales/rhonchi appreciated, no increased work of breathing GI: soft, nondistended, nontender, BS normoactive MSK: no gross deformities appreciated Skin: warm, dry, no rash appreciated Neuro: alert, oriented, no focal neurologic deficit appreciated Discharge Data Allergies Allergy/AdvReac Type Severity Reaction Status Date / Time Antihistamines - Alkylamine AdvReac Intermediate "Just Verified 11/19/23 04:18 Don't Feel Right When I Take Them" Antihistamines - Ethanolamine AdvReac Intermediate "Just Verified 11/19/23 04:18 Don't Feel Right When I Take Them" Antihistamines - AdvReac Intermediate "Just Verified 11/19/23 04:18 Ethylenediamine Don't Feel Right When I Take Them" Antihistamines - Piperazine AdvReac Intermediate "Just Verified 11/19/23 04:18 Don't Feel Right When I Take Them" Antihistamines - Piperidine AdvReac Intermediate "Just Verified 11/19/23 04:18 Don't Feel Right When I Take Them" buspirone [From BuSpar] AdvReac Intermediate Shaking/john Verified 11/19/23 04:18 mor Consultations 01/25/24 22:17 ED Decision to Admit Stat 01/26/24 04:03 Consult Psychiatry Routine Hospital Course (1) Alcohol intoxication: (2) Alcohol withdrawal: (3) Elevated liver enzymes: (4) Post traumatic stress disorder (PTSD): (5) Depression: (6) Anxiety: (7) Alcohol use disorder, severe, dependence: (8) Methamphetamine use: Plan 34 M with history of substance use disorder, severe alcohol use disorder/dependence who presented to the hospital for alcohol withdrawal. Alcohol intoxication/alcohol withdrawal -Alcohol level 201.9. UDS pending. -S/p IV thiamine 100 mg, IV folic acid 1 mg in the ED. * Continue AWSS protocol with IV Ativan * Resume home Librium 25 mg every 8 hours, gabapentin 300 mg twice daily, * Sent home with a Librium taper. * Seroquel 100 mg nightly * Resume home thiamine 200 mg p.o. twice daily, folic acid 1 mg p.o. daily * recommend outpatient f/u on alcohol addiction PTSD/depression/anxiety -Bupropion, escitalopram held on admission. -Psychiatry consulted. * Continue home bupropion, escitalopram, and Seroquel. Elevated LFTs -AST 97, ALT 63, above baseline. live enzymes improving. -Recommend follow-up outpatient Total Time Total Time Spent Total Time Spent (In Minutes): <30 Discharge Plan Discharge Items Patient Disposition: Home - Self-Care Reason For Visit: ALCOHOL WITHDRAWAL, METHAMPHETAMINE ABUSE Discharge Diagnosis: Alcohol withdrawal Activity: Resume your previous activity Non-emergency contact: Primary Care Provider Call non-emergency contact if: your pain is unusual for you, your pain is co ncerning for you and your temperature is above 101.5 Follow-up/Referrals: Bri Cervantes MD [Primary Care Provider] - Diet: Regular Addtl Attending Provider Instructions: You were admitted to the hospital for alcohol withdrawal. You were treated with a Librium taper. A discharge summary will be sent to your primary care physician to ensure c ontinuity of care. Please bring this discharge summary with you to your next office appointment so that your provider can review it at that time. Follow-up appointments: * Make a follow-up appointment with your PCP within the next week. It is very important that you follow up with them shortly after discharge from the hospital. * Keep all your follow-up appointments as already scheduled. If you cannot make an appointment, notify your provider. Medications: Your medication list has been reviewed and reconciled upon discharge to ensure accuracy and continuity of care. An updated list of all your medications is included with your hospital discharge paperwork. Please review this list closely, and make note of any changes. * We sent a new medication called Librium to your pharmacy. Please take it as described below. * Take your medications as instructed; do not skip a dose of your medicines. Make sure all of your doctors know every medicine you are taking (including krsn-fvs-kuerqru medicines, vitamins, and supplements). Call your primary care provider before taking any new medicines (including over- the-counter medicines, vitamins, and supplements), because some of these may interact with your current medications, or may make your symptoms worse. Tell your primary care provider if you cannot afford your medications. CONTACT YOUR PRIMARY CARE PROVIDER if you experience any of the following: * Worsening of symptoms * Fever, chills, or fatigue * Difficulty following your treatment plan, or difficulty taking medications CALL 911 OR GO TO THE EMERGENCY DEPARTMENT if you experience any of the following: * Sudden, severe abdominal pain or nausea/vomiting * Severe chest pain, or chest pain that radiates (moves) to your jaw or arm * Sudden, severe shortness of breath or difficulty breathing Thank you for allowing us to participate in your care. Pending Studies at Discharge: No Stand-Alone Forms: My [place], Smoking Cessation Medications and DC Order Prescriptions: New chlordiazepoxide HCl 25 mg capsule 25 mg PO TID Qty: 13 0RF Rx Instructions: 1 po tid x 2 days, then 1 po bid x 2 days, then 1 po daily x 3 days then stop Continued thiamine HCl (vitamin B1) 100 mg Tablet 200 mg PO BID Qty: 60 0RF pantoprazole 40 mg Tablet,Delayed Release (Dr/Ec) 40 mg PO QAM Qty: 30 0RF folic acid 1 mg Tablet 1 mg PO QAM Qty: 30 0RF quetiapine 100 mg tablet 100 mg PO HS Qty: 15 0RF bupropion HCl 100 mg tablet sustained-release 12 hr 100 mg PO QAM Qty: 30 0RF gabapentin 300 mg capsule 300 mg PO BID Qty: 60 0RF gabapentin 100 mg capsule 100 mg PO BID Qty: 60 0RF Rx Instructions: take along with 300 mg escitalopram oxalate 10 mg tablet 10 mg PO QAM Qty: 30 0RF Rx Instructions: take with 5 mg to equal 15 mg dose escitalopram oxalate 5 mg tablet 5 mg PO QAM Qty: 30 0RF Rx Instructions: take with 10 mg to equal 15 mg dose Discontinued chlordiazepoxide HCl 25 mg Capsule 25 mg PO Q8H Qty: 2 0RF chlordiazepoxide HCl 10 mg Capsule 10 mg PO Q12H Qty: 2 0RF Discharge Orders: Discharge Order (Routine); Ordered 01/28/24 Ordered By: César Thompson Admission Data Admit Date/Time: 01/25/24 23:12 Attending Provider: Jesse Matthew Admit Provider: Reji Villavicencio Primary Care Provider: Bri Cervantes Other Providers: Reji Villavicencio; Vita Mackey; Angie Carrillo; Yonis Parada; Eric Holt Jr; Crystal Pardo; Charito Tate Supervising Physician Co-Signing Physician Notes I personally examined the patient and verified all abel points of history and exam, discussed case, and agree with decision making with Dr Thompson Alcohol withdrawal - Better. Appears stable for home. Notes that he does better with abstinence whenever he is on a Librium taper for a little bit and then he is able to maintain sobriety. This does seem to fit with his track record. Will prescribe a Librium taper 25 mg 3 times daily x 2 days, twice daily x 2 days, and then daily x 3 more days before stopping Polysubstance use disorderhe does not want to go immediately to an inpatient facility. Notes that he will lean on family for support. Notes that he has had months of sobriety before and feels that he just had a relapse but will likely be on track to do okay. MDD, BRITTNY, PTSD - - Outpatient follow-up Resident Activity Tracking Resident Involvement: Resident Care Provided Care Provided: [facility]
--- NOTE | 2024-01-28 13:09 | Billing Data ---
Date of Service January 28, 2024 Coding Level of Care Code 25916 IN/OBS DISCH 30 MIN/LESS
[2024-01-30 12:23] LABS: 7-Aminoclonaz, Confirm NEGATIVE ng/mL (<25); Hydro-Alp Ur, GC/MS NEGATIVE ng/mL (<25); Hydroxyethylflurazepam, Conf NEGATIVE ng/mL (<50); Hydroxymidazolam Ur, GC/MS NEGATIVE ng/mL (<50); Hydroxytriazolam NEGATIVE ng/mL (<50); Lorazepam, Ur GC/MS 700 ng/mL (<50); Nordiazepam, Confirm NEGATIVE ng/mL (<50); Oxazepam Ur, GC/MS NEGATIVE ng/mL (<50); Temazepam, Confirm NEGATIVE ng/mL (<50)
== END 2024-01-28 15:05 | disposition home or self-care (01) | DRG 897 ==
LOC: ED 20:23 → SUATTDRO 23:12 → EDINP 23:12 → 2S 01-26 03:25

== ENCOUNTER 2024-05-26 18:59 | Inpatient (IN) ==
[2024-05-26 19:12] VITALS: TEMP 98.2
[2024-05-26] MEDS: SODIUM CHLORIDE 0.9% 1,000 ML IV STA (19:23)
[2024-05-26 19:43] LABS: Basophils # (auto) 0.06 K/uL (0.00-0.20); Basophils % (auto) 0.6 %; Eosinophils # (auto) 0.05 K/uL (0.00-0.50); Eosinophils % (auto) 0.5 %; Hematocrit (blood only) 47.9 % (42.0-52.0); Hemoglobin 16.9 g/dl (14.0-18.0); Immature Granulocytes # (auto) 0.03 K/uL (0.01-0.20); Immature Granulocytes % (auto) 0.3 %; Lymphocytes # (auto) 2.27 K/uL (1.20-3.40); Lymphocytes % (auto) 22.8 %; Mean Corpuscular Hemoglobin 29.8 pg (25.0-34.0); Mean Corpuscular Hgb Conc 35.3 g/dL (32.0-36.0); Mean Corpuscular Volume 84.5 fL (80.0-100.0); Monocytes # (auto) 0.61 K/uL (0.11-0.59); Monocytes % (auto) 6.1 %; Neutrophils # (auto) 6.93 K/uL (1.40-6.50); Neutrophils % (auto) 69.7 %; Platelet Count 294 K/uL (130-400); RDW Coefficient of Variation 11.9 % (11.5-14.5); Red Blood Count 5.67 M/uL (4.70-6.10); White Blood Count 9.95 K/ul (4.8-10.8)
--- NOTE | 2024-05-26 19:48 | Emergency Department Note ---
Impression & Plan Alcohol withdrawal, Alcohol use disorder, severe, dependence ED Provider Note NAME: MARYSOL RUTLEDGE AGE: 34 SEX: M : 1990 ARRIVES VIA: Walk-In INFORMANT: Patient, triage note ED PROVIDER(S): Rizwan Wyman MD CHIEF COMPLAINT: Abdominal pain, nausea vomiting MEDICAL DECISION MAKING: Patient presents to concern for abdominal pain nausea vomiting. IV was established and blood work was obtained. I am concerned the patient is lying about his alcohol use. I am concerned that he is withdrawing. CIWA of 10. Patient was ordered 5 of IV Valium and a banana bag and had all received 1 L of IV fluids. Patient's blood work shows a normal white count H&H and platelet count kidney function is unremarkable. Sodium 134. AST of 64 calcium slightly elevated 10.8. Lipase normal. Alcohol negative. I did initiate CIWA protocol. I did speak with the on-call hospitalist Dr. Birch and the patient was admitted to the medicine service. Critical Care: I have personally spent 45 minutes of critical care time in direct management of this patient. This includes bedside care, interpretation of diagnostic studies, and testing, discussion with consultants, patient, and family members, and other require inpatient management activities. This 45 minutes is in excess of all separately billable procedures. Discussion w/ other healthcare providers: Dr. Viramontes inpatient medicine service Prior /Outside records reviewed: None Differential diagnosis: Infection, dehydration, metabolic abnormality, hypo/hyperglycemia, electrolyte imbalance, anemia, UTI, pneumonia, thyroid dysfunction among others were considered. Diagnostics, as interpreted by me: ECG: Sinus tachycardia, rate of 124, normal intervals, normal axis no ST elevations or T WI. Cardiac monitoring: An order was placed for continuous cardiac monitoring. The monitor shows a rate of 115 with tachycardic and regular rhythm. Patient was placed on pulse oximetry Medical decision rules: None Imaging studies: None HPI: Patient presents due to concern for abdominal pain. 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 The patient states that he did have crepitus of the abdomen and lower extremities. Patient states that he did have 1 drink of vodka today. Prior to that he has not drank in 30 days and prior to that 60 days prior. Patient denies any chest pains or shortness of breath. The patient reports that he has had nausea and vomiting. He does state that he was seeing bodies and creatures that were talking to him last night which she thought was "weird." Patient is adamant about not using alcohol. PAST MEDICAL HISTORY: See Below PAST SURGICAL HISTORY: See Below SOCIAL HISTORY: See Below HOME MEDICATIONS: See Below ALLERGIES: See Below VITALS: See Below PHYSICAL EXAMINATION: GENERAL: Tremulous and somewhat agitated although nontoxic in appearance. EYE EXAM: Normal conjunctiva. PERRL, no anisocoria, pupils dilated, and EOM's grossly intact w/o pain. OROPHARYNX: Dry mucus membranes, grossly normal dentition. NECK: Trachea midline, no stridor. LUNGS: Clear to auscultation. Normal chest wall mechanics. HEART: NSR, no MRG. ABDOMEN: Abdomen soft, non-tender, no masses, no rebound or guarding. BACK: No CVA TTP. SKIN: No rashes and no bruising. UPPER EXTREMITIES: Upper extremities are grossly normal. LOWER EXTREMITIES: Grossly normal, no edema. NEURO EXAM: Awake and alert, follows commands, cranial nerves II-XII grossly intact, normal speech, moves all 4 extremities. Past Med/Surg History Problem List (Updated 05/27/24 @ 00:21 by Rizwan Wyman MD) Methamphetamine use Alcohol use disorder, severe, dependence (Chronic) Post traumatic stress disorder (PTSD) (Chronic) Suicidal ideations (Acute) Depression (Acute) Alcohol withdrawal (Acute) Elevated liver enzymes Major depressive disorder, recurrent episode (Acute) Enlarged liver (Acute) Seasonal allergies (Acute) Anxiety (Acute) Medical History Acute dehydration Heart palpitations Alcohol intoxication Hypokalemia COVID-19 Transaminitis Acid reflux Tobacco abuse Homicidal ideation Depression with suicidal ideation Alcohol intoxication 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 Diplopia Anxiety and depression Depressive disorder Alcoholic hepatitis Lab test negative for COVID-19 virus No pertinent family history BRITTNY (generalized anxiety disorder) Left leg cellulitis Headache Dizziness Surgical History No pertinent past surgical history Family History Mother Other No significant family history Denies family history of Ovarian cancer Prostate cancer Myocardial infarction Breast cancer Colorectal cancer Hypertension Social History Smoking Status: Current every day smoker Tobacco Type: E-cigarettes / Vaping Second Hand Exposure: No; Hx Alcohol Use: Yes Alcohol type: hard liquor Hx Substance Use: No Preferred Language: Wolof Communication Ability: Effective Visual Impairment: No Limitations Hearing Ability: Normal Reproductive Surgeon Required: No Beliefs That Will Affect Care: None marital status: marital status details: Current Living Situation: Alone current occupational status: employed How many Children do You have: 1 Feels Safe at Home: Yes Safety Concerns: Feels Safe At This Time Childhood Exposure to Second-Hand Smoke: No Diet: regular Dental Care, Regularly: Yes Physical Activity Frequency: Daily Seatbelt Use: always Sunscreen Use: No Assistive Devices: Glasses Allergies Allergies Allergy/AdvReac Type Severity Reaction Status Date / Time Antihistamines - Alkylamine AdvReac Intermediate "Just Verified 05/26/24 21:42 Don't Feel Right When I Take Them" Antihistamines - Ethanolamine AdvReac Intermediate "Just Verified 05/26/24 21:42 Don't Feel Right When I Take Them" Antihistamines - AdvReac Intermediate "Just Verified 05/26/24 21:42 Ethylenediamine Don't Feel Right When I Take Them" Antihistamines - Piperazine AdvReac Intermediate "Just Verified 05/26/24 21:42 Don't Feel Right When I Take Them" Antihistamines - Piperidine AdvReac Intermediate "Just Verified 05/26/24 21:42 Don't Feel Right When I Take Them" buspirone [From BuSpar] AdvReac Intermediate Shaking/john Verified 05/26/24 21:42 mor Home Meds Previous Rx's Medication Instructions Recorded bupropion HCl 100 mg tablet,12 hr 100 mg PO QAM #30 ea 12/28/23 sustained-release escitalopram oxalate 10 mg tablet 10 mg PO QAM #30 tabs 12/28/23 escitalopram oxalate 5 mg tablet 5 mg PO QAM #30 tabs 12/28/23 pantoprazole 40 mg tablet,delayed 40 mg PO QAM #30 tabs 12/28/23 release quetiapine 100 mg tablet 100 mg PO HS #15 tabs 12/28/23 Results & Data (ED) Vital Signs Vital Signs - 24 hr 05/26/24 19:09 05/26/24 19:55 05/26/24 20:00 Temperature 36.8 C Temperature Source Oral Pulse Rate 120 H 93 H 96 H Pulse Rate from SpO2 Sensor 97 H Respiratory Rate 20 13 Blood Pressure 148/93 H 134/89 Blood Pressure Mean 111 99 Pulse Oximetry 95 96 Oxygen Delivery Method Room Air Room Air Sepsis Recent Fever Within 48 Hours No Sepsis New/Unexplained Change in Mental Status No Sepsis Action Taken by Nursing No Action Required 05/26/24 20:30 05/26/24 21:01 Temperature Temperature Source Pulse Rate 94 H 95 H Pulse Rate from SpO2 Sensor 94 H 96 H Respiratory Rate 17 19 Blood Pressure 136/92 148/115 H Blood Pressure Mean 114 122 Pulse Oximetry 95 97 Oxygen Delivery Method Room Air Room Air Sepsis Recent Fever Within 48 Hours Sepsis New/Unexplained Change in Mental Status Sepsis Action Taken by Custodial Medications Current Medication List: was personally reviewed by me Laboratory Data Attestation: I reviewed the patient's lab results. 05/26/24 19:20 05/26/24 19:20 Lab Results 05/26/24 Range/Units 19:20 WBC 9.95 (4.8-10.8) K/ul RBC 5.67 (4.70-6.10) M/uL Hgb 16.9 (14.0-18.0) g/dl Hct 47.9 (42.0-52.0) % MCV 84.5 (80.0-100.0) fL MCH 29.8 (25.0-34.0) pg MCHC 35.3 (32.0-36.0) g/dL RDW Std Deviation 36.0 L (36.4-46.3) fL RDW Coeff of Bryanna 11.9 (11.5-14.5) % Plt Count 294 (130-400) K/uL MPV 10.0 (9.4-12.4) fL Immature Gran % (Auto) 0.3 % Neut % (Auto) 69.7 % Lymph % (Auto) 22.8 % Ransom % (Auto) 6.1 % Eos % (Auto) 0.5 % Baso % (Auto) 0.6 % Neut # (Auto) 6.93 H (1.40-6.50) K/uL Lymph # (Auto) 2.27 (1.20-3.40) K/uL Ransom # (Auto) 0.61 H (0.11-0.59) K/uL Eos # (Auto) 0.05 (0.00-0.50) K/uL Baso # (Auto) 0.06 (0.00-0.20) K/uL Immature Gran # (Auto) 0.03 (0.01-0.20) K/uL Sodium 134 L (136-145) mmol/L Potassium 4.1 (3.5-5.1) mmol/L Chloride 96 L (98-107) mmol/L Carbon Dioxide 25 (21-32) mmol/L Anion Gap 13 H (3-11) BUN 12 (6-23) mg/dl Creatinine 0.86 (0.6-1.4) mg/dl Est Cr Clr Drug Dosing 134.1 ml/min Est GFR ( Amer) 132.1 ml/min Est GFR (Non-Af Amer) 113.9 ml/min BUN/Creatinine Ratio 14.0 (10-20) Glucose 113 H (70-99(Fasting)) mg/dl Calcium 10.8 H (8.6-10.3) mg/dl Total Bilirubin 0.9 (0.2-1.0) mg/dl AST 64 H (13-39) U/L ALT 50 (7-52) U/L Alkaline Phosphatase 78 (34-104) U/L Total Protein 9.2 H (6.0-8.3) gm/dl Albumin 5.5 H (3.4-5.0) gm/dl Globulin 3.7 (2.5-4.0) gm/dl Albumin/Globulin Ratio 1.5 (0.9-2) Lipase 14 (11-82) U/L Ethyl Alcohol mg/dL < 10.0 (<10.0) mg/dl Administered Medications Lactated Ringer's (Lr) 1,000 mls @ 200 mls/hr IV .Q5H XIOMY Stop: 06/25/24 23:14 Last Admin: 05/26/24 23:45 Dose: 200 mls/hr Documented By: AAW Discontinued Medications Diazepam (Diazepam 5 Mg/Ml 10ml Vial) 5 mg IV NOW STA Stop: 05/26/24 20:11 Last Admin: 05/26/24 20:32 Dose: 5 mg Documented By: SKSasha Sodium Chloride (Nss) 1,000 mls @ 999 mls/hr IV .Q1H1M STA Stop: 05/26/24 20:14 Last Infusion: 05/26/24 20:24 Dose: Infused Documented By: Admin: 05/26/24 19:23 Dose: 999 mls/hr Documented By: YARI Sodium Chloride (Nss) 1,000 mls @ 999 mls/hr IV .Q1H1M ONE Stop: 05/26/24 21:10 Last Infusion: 05/26/24 21:33 Dose: Infused Documented By: DMTereza Admin: 05/26/24 20:32 Dose: 999 mls/hr Documented By: LILIAN Multivitamins 10 ml/ Thiamine HCl 100 mg/ Folic Acid 1 mg/Sodium Chloride 1,011.2 mls @ 500 mls/hr IV .Q2H2M ONE Stop: 05/26/24 22:12 Last Infusion: 05/26/24 23:44 Dose: Infused Documented By: Admin: 05/26/24 21:38 Dose: 500 mls/hr Documented By: DMTereza Discharge Plan Visit Data Chief Complaint: Abdominal Pain Stated Complaint: NAUSEA, SWEATING, HEADACHE, DEHYDRATION, ABD PAIN ED Provider: Rizwan Wyman Discharge Problem: Alcohol withdrawal, Alcohol use disorder, severe, dependence Discharge Instructions Interventions: ED Discharge Assessment Last Done: 05/26/24 22:40 Discharge Problem: Alcohol withdrawal Qualifiers: Complication of substance-induced condition: with delirium Qualified Code(s): F 10.931 - Alcohol use, unspecified with withdrawal delirium
[2024-05-26 19:49] LABS: Albumin Level 5.5 gm/dl (3.4-5.0); Bilirubin,Total 0.9 mg/dl (0.2-1.0); Calcium 10.8 mg/dl (8.6-10.3); Potassium 4.1 mmol/L (3.5-5.1)
[2024-05-26 19:55] LABS: Albumin Globulin Ratio 1.5 (0.9-2); Creatinine Clr Calc Pharmacy 134.1 ml/min; Est GFR (African American) 132.1 ml/min; Est GFR (Non-African American) 113.9 ml/min; Globulin 3.7 gm/dl (2.5-4.0); Total Protein 9.2 gm/dl (6.0-8.3)
[2024-05-26] MEDS ORDERED: LORazepam 2 MG in SYRINGE 1 ML IV PRN ×2 (20:11→22:39)
[2024-05-26] MEDS ORDERED: LORazepam 3 MG in SYRINGE 1.5 ML IV PRN ×2 (20:11→22:39)
[2024-05-26] MEDS ORDERED: Ativan IV Alcohol Withdrawal--Active Protocol IV PRN ×2 (20:11→22:39)
[2024-05-26] MEDS ORDERED: LORazepam 1 MG in SYRINGE 0.5 ML IV PRN ×2 (20:11→22:39)
[2024-05-26] MEDS: SODIUM CHLORIDE 0.9% 1,000 ML IV ONE (20:32)
[2024-05-26] MEDS: diazePAM 5 MG/ML 10ML VIAL IV STA (20:32)
--- NOTE | 2024-05-26 21:21 | History & Physical Report ---
Date of Service May 26, 2024 Assessment & Plan (1) Alcohol use disorder, severe, dependence: (2) Post traumatic stress disorder (PTSD): (3) Depression: (4) Alcohol withdrawal: (5) Elevated liver enzymes: (6) Major depressive disorder, recurrent episode: (7) Anxiety: Plan This is a 34 y/o male patient with PMHx of alcohol use disorder with previous admissions for withdrawal, anxiety, PTSD, Depression w/ SI, and history of methamphetamine use who was admitted for management of alcohol withdrawal, however, symptoms from recent substance/stimulant use cannot be r/o at this time as a UDS has not been collected. Alcohol use disorder // Alcohol withdrawal - Patient with hx of alcohol use disorder who has been admitted on multiple occasions in the past for management of withdrawal - States that last night he had hallucinations that were both visual and auditory - At time of evaluation patient appeared to have sympathetic agitation as evidenced by his fidgety state, shaky speech, elevated BP and dilated pupils - Will admit patient to PCU/Tele for management of alcohol withdrawal - AWSS protocol ordered - Lorazepam IV active protocol - Continue home thiamine 200 mg bid and folate daily - IVF with LR @ 125 ml/hr - UDS ordered and pending collection - Monitor am labs RUQ pain in the setting of elevated liver enzymes - Patient with elevated AST in the setting of likely alcohol withdrawal - Consider RUQ pain and elevated AST may be related to alcohol use - Monitor am CMP - If liver enzymes persistently elevated or if pain worsens, may consider liver US versus CT to evaluate further Anxiety w/ Depression - Will continue home Lexapro and Wellbutrin Insomnia - Continue home Seroquel Dispo: PCU/Tele Fluids: LR @ 125 ml/hr Diet:Regular VTE ppx: Lovenox Code Status: Full History of Present Illness Chief Complaint: Abdominal pain Primary Care Provider: Bri Cervantes MD Patient is a 34-year-old male past medical history relevant for alcohol use disorder with previous admissions for withdrawal, anxiety, PTSD, Depression w/ SI, and history of methamphetamine use who comes to the hospital due to experiencing abdominal pain. Patient states that since yesterday he has been experiencing increasing diaphoresis, palpitations, have been feeling more fidgety than usual, and last night had hallucinations involving people and other creatures and he did hear them in his room. He states that he believes his symptoms are attributed to feeling "super hot" after working outside for a long time. He states that he was drinking "4 gallons of Gatorade" due to feeling so hot. States that his last drink was a shot of [employer] vodka earlier today and that prior to this he did not have a drink other than 1 month ago. He denies any recent substance use and no recent changes in his medications. Patient states that he had been in a rehab facility earlier this year and that he had completed that. ED Course: NSS bolus 1L x2 given. Single dose of diazepam 5 mg given Labs/Imaging: CBC with hemoglobin of 16.9, no leukocytosis, platelets 294. CMP with mild hyponatremia of 134, bicarb of 25, and renal markers within reference range. Anion gap 13. LFTs with elevated AST at 64 with no other abnormalities, alcohol level below 10. UDS ordered but not collected. Medical History: [Reviewed] Medications: [Reviewed] Social History: [Reviewed] Allergies Allergy/AdvReac Type Severity Reaction Status Date / Time Antihistamines - Alkylamine AdvReac Intermediate "Just Verified 05/26/24 21:42 Don't Feel Right When I Take Them" Antihistamines - Ethanolamine AdvReac Intermediate "Just Verified 05/26/24 21:42 Don't Feel Right When I Take Them" Antihistamines - AdvReac Intermediate "Just Verified 05/26/24 21:42 Ethylenediamine Don't Feel Right When I Take Them" Antihistamines - Piperazine AdvReac Intermediate "Just Verified 05/26/24 21:42 Don't Feel Right When I Take Them" Antihistamines - Piperidine AdvReac Intermediate "Just Verified 05/26/24 21:42 Don't Feel Right When I Take Them" buspirone [From BuSpar] AdvReac Intermediate Shaking/john Verified 05/26/24 21:42 mor Home Medications Medication Instructions Recorded Confirmed Type bupropion HCl 100 mg tablet,12 hr 100 mg PO QAM #30 ea 12/28/23 05/26/24 Rx sustained-release escitalopram oxalate 10 mg tablet 10 mg PO QAM #30 tabs 12/28/23 05/26/24 Rx escitalopram oxalate 5 mg tablet 5 mg PO QAM #30 tabs 12/28/23 05/26/24 Rx pantoprazole 40 mg tablet,delayed 40 mg PO QAM #30 tabs 12/28/23 05/26/24 Rx release quetiapine 100 mg tablet 100 mg PO HS #15 tabs 12/28/23 05/26/24 Rx Past Med/Surg History Problem List (Updated 05/27/24 @ 00:21 by Rizwan Wyman MD) Methamphetamine use Alcohol use disorder, severe, dependence (Chronic) Post traumatic stress disorder (PTSD) (Chronic) Suicidal ideations (Acute) Depression (Acute) Alcohol withdrawal (Acute) Elevated liver enzymes Major depressive disorder, recurrent episode (Acute) Enlarged liver (Acute) Seasonal allergies (Acute) Anxiety (Acute) Medical History Acute dehydration Heart palpitations Alcohol intoxication Hypokalemia COVID-19 Transaminitis Acid reflux Tobacco abuse Homicidal ideation Depression with suicidal ideation Alcohol intoxication 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 Diplopia Anxiety and depression Depressive disorder Alcoholic hepatitis Lab test negative for COVID-19 virus No pertinent family history BRITTNY (generalized anxiety disorder) Left leg cellulitis Headache Dizziness Surgical History No pertinent past surgical history Family History Mother Other No significant family history Denies family history of Ovarian cancer Prostate cancer Myocardial infarction Breast cancer Colorectal cancer Hypertension Social History Smoking Status: Current every day smoker Tobacco Type: E-cigarettes / Vaping Second Hand Exposure: No; Hx Alcohol Use: Yes Alcohol type: hard liquor Hx Substance Use: No Preferred Language: [place] Communication Ability: Effective Visual Impairment: No Limitations 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 Required: No Beliefs That Will Affect Care: None marital status: marital status details: Current Living Situation: Alone current occupational status: employed How many Children do You have: 1 Feels Safe at Home: Yes Safety Concerns: Feels Safe At This Time Childhood Exposure to Second-Hand Smoke: No Diet: regular Dental Care, Regularly: Yes Physical Activity Frequency: Daily Seatbelt Use: always Sunscreen Use: No Assistive Devices: Glasses Review of Systems Review of Systems: As per HPI Physical Exam Physical Exam: GENERAL: AAOx3, afebrile, fidgety, NAD HEAD: AT and NC EYES: bilaterally dilated pupils that are equal and reactive to light, EOM intact THROAT: normal to visual inspection CHEST: symmetrical chest expansions CARDIO: RRR, no r/m/g PULMONARY: CTA bilaterally, normal respiratory effort, no respiratory distress, breathing at room air GI: tenderness to palpation that is more marked in RUQ, nondistended, no rebound tenderness or guarding : no hernandez EXTREMITIES: no swelling or calf tenderness in b/l LE NEURO: no aphasia, speech is slightly tremulous and patient sometimes interrupts speech to say something different than what he was saying before or changes topic, bilateral UE and LE shaky and patient not able to sit still, bilateral pupils equally dilated but reactive to light, no motor deficiencies or sensorial change, no neuro deficits noted Results & Data Results & Data Vital Signs (Past 12 Hours) Vital Signs Temp Pulse Resp BP Pulse Ox O2 Del Method 05/26/24 20:30 94 H 17 136/92 95 Room Air 05/26/24 20:00 96 H 13 134/89 96 Room Air 05/26/24 19:55 93 H 05/26/24 19:09 36.8 C 120 H 20 148/93 H 95 Room Air Supervising Physician Co-Signing Physician Notes Attending addendum: I have physically seen this patient, have supervised the medical residents activities, and agree with the H&P unless as otherwise noted. Assessment and Plan: Alcohol withdrawal/alcohol use disorder Alcohol level less than 10.0 The patient will be admitted to telemetry for serial cardiac enzymes, serial EKG's, cardiac rhythm monitoring AWSS protocol with IV Ativan Thiamine and folate as noted LR 125 mL/h Order urine drug screen Follow serial CBC with differential, chemistry profile and magnesium level Epigastric/right upper quadrant abdominal pain- Patient has been taking an [id number] Bronkaid, which has ephedrine in it, which may be causing part of the symptomatology AST mildly elevated at 64 Repeat laboratories in a.m., and if labs are worse and/or symptoms are worse, pursue additional imaging at that time Anxiety with depression/insomnia- Continue Lexapro, Wellbutrin and Seroquel Resident Activity Tracking Resident Involvement: Resident Care Provided Care Provided: Adult [facility] Medicine (3) Depression Depression Type: unspecified Qualified Code(s): F32.A - Depression, unspecified (6) Major depressive disorder, recurrent episode Major depression episode severity: unspecified Qualified Code(s): F33.9 - Major depressive disorder, recurrent, unspecified
[2024-05-26] MEDS: MULTI-VITAMIN INFUSION 10 ML, THIAMINE HCL 100 MG, FOLIC ACID 1 MG in SODIUM CHLORIDE 0... IV ONE (21:38)
[2024-05-26] MEDS ORDERED: ACETAMINOPHEN 325 MG TAB PO PRN (22:39)
[2024-05-26] MEDS ORDERED: ONDANSETRON INJ 2 MG/ML 2 ML VIAL IV PRN (22:39)
[2024-05-26] MEDS ORDERED: POLYETHYLENE (MIRALAX) 17 GM PACK PO PRN (22:39)
[2024-05-26] MEDS: LACTATED RINGER'S 1,000 ML IV SCH (23:45)
[2024-05-27 01:40] LABS: Amphetamines+Metham, Urine Neg (Neg); Barbiturates, Urine Neg (Neg); Benzodiazepine, Urine Neg (Neg); Cocaine, Urine Neg (Neg); Fentanyl, Urine Neg (Neg); MDMA (Ecstacy), Urine Pos (Neg); Marijuana, Urine Neg (Neg); Methadone, Urine Neg (Neg); Opiate, Urine Neg (Neg); Phencyclidine, Urine Neg (Neg)
[2024-05-27] MEDS: ONDANSETRON INJ 2 MG/ML 2 ML VIAL IV STA (02:24)
--- NOTE | 2024-05-27 04:02 | Billing Data ---
Date of Service May 27, 2024 Coding Level of Care Code 50246 INT INP/OBS CARE
[2024-05-27 06:04] VITALS: RESP 16
[2024-05-27 06:37] LABS: Basophils # (auto) 0.05 K/uL (0.00-0.20); Basophils % (auto) 0.7 %; Eosinophils # (auto) 0.12 K/uL (0.00-0.50); Eosinophils % (auto) 1.8 %; Hematocrit (blood only) 40.9 % (42.0-52.0); Hemoglobin 14.2 g/dl (14.0-18.0); Immature Granulocytes # (auto) 0.01 K/uL (0.01-0.20); Immature Granulocytes % (auto) 0.1 %; Lymphocytes # (auto) 2.73 K/uL (1.20-3.40); Lymphocytes % (auto) 40.9 %; Mean Corpuscular Hemoglobin 30.2 pg (25.0-34.0); Mean Corpuscular Hgb Conc 34.7 g/dL (32.0-36.0); Monocytes # (auto) 0.49 K/uL (0.11-0.59); Monocytes % (auto) 7.3 %; Neutrophils # (auto) 3.27 K/uL (1.40-6.50); Neutrophils % (auto) 49.2 %; Platelet Count 190 K/uL (130-400); RDW Coefficient of Variation 11.9 % (11.5-14.5); RDW Standard Deviation 38.1 fL (36.4-46.3); White Blood Count 6.67 K/ul (4.8-10.8)
[2024-05-27 06:42] LABS: Albumin Globulin Ratio 1.4 (0.9-2); Albumin Level 3.9 gm/dl (3.4-5.0); BUN Creatinine Ratio 14.5 (10-20); Bilirubin,Total 0.8 mg/dl (0.2-1.0); Calcium 8.6 mg/dl (8.6-10.3); Creatinine Clr Calc Pharmacy 167.1 ml/min; Est GFR (African American) 144.6 ml/min; Est GFR (Non-African American) 124.7 ml/min; Globulin 2.8 gm/dl (2.5-4.0); Potassium 4.1 mmol/L (3.5-5.1); Total Protein 6.7 gm/dl (6.0-8.3)
[2024-05-27 10:34] VITALS: O2SAT 100
[2024-05-27] MEDS: PANTOprazole 40 MG TAB PO SCH (10:38)
[2024-05-27] MEDS: THIAMINE HCL 100 MG TAB PO SCH (10:38)
[2024-05-27] MEDS: ENOXAPARIN INJ 40 MG/0.4 ML SYR SQ SCH (10:38)
[2024-05-27] MEDS: buPROPion SR 100 MG TABCR PO SCH (10:38)
[2024-05-27] MEDS: FOLIC ACID 1 MG TAB PO SCH (10:38)
[2024-05-27] MEDS: ESCITALOPRAM OXALATE 10 MG TAB PO SCH (10:38)
--- NOTE | 2024-05-27 13:08 | Hospitalist Progress Note ---
Date of Service May 27, 2024 Assessment & Plan (1) Alcohol use disorder, severe, dependence: Plan: This is a 34 y/o male patient with PMHx of alcohol use disorder with previous admissions for withdrawal, anxiety, PTSD, Depression w/ SI, and history of methamphetamine use who was admitted for management of alcohol withdrawal, however, symptoms from recent substance/stimulant use cannot be r/o at this time as a UDS has not been collected. Altered mental status with history of anxiety/depression, substance use, and alcohol use. - Patient with hx of alcohol use disorder who has been admitted on multiple occasions in the past for management of withdrawal -Prior to admission had both auditory and visual hallucinations. Was agitated and with fidgeting, elevated blood pressure, dilated pupils, tremulous speech on admission Was admitted for alcohol withdrawal Last drink was 1 shot of [employer] vodka yesterday but otherwise reports that he had not been drinking since he was in rehab. Did have a slight transaminitis on admission, alcohol negative ? Anxiety/depression with psychosis versus alcohol withdrawal vs substance use. Cocaine/amphetamine negative on UDS. Given history of recurrent alcohol use patient was treated with AWSS protocol. Medical alcohol was negative on admission Psychiatry consulted for potential underlying anxiety/depression with psychosis vs substance induced AMS No signs of infectious encephalopathy (2) Post traumatic stress disorder (PTSD): Plan: Anxiety w/ Depression -Lexapro/quetiapine continued Psych consulted as noted Insomnia - Continue home Seroquel (3) Depression: (4) Alcohol withdrawal: (5) Elevated liver enzymes: Plan: RUQ pain in the setting of elevated liver enzymes -Resolved today, - Consider RUQ pain and elevated AST may be related to alcohol use. AST downtrending and near normalized Imaging deferred, if recurrent or worsening then CTA/P versus ultrasound (6) Major depressive disorder, recurrent episode: (7) Anxiety: Plan Dispo: PCU/Tele Fluids: LR @ 125 ml/hr Diet:Regular VTE ppx: Lovenox Code Status: Full Admission and Anticipated Discharge Date Admission Date: May 26, 2024 Subjective . Physical Exam Physical Exam: General: A&Ox3. NAD. Cooperative. Mildly tremulous. Sleeping with blanket overhead but awakens easily HEENT: Atraumatic, normocephalic. Pupils are equal and reactive to light Pulm: CTAB A&P. -wheezes, -rales, -rhonchi. Symmetrical chest rise. No increased work of breathing. No respiratory distress. Cardiac: RRR, -mrg. Radial pulses intact and symmetrical. Extremities: Moves all extremities equally, tremulous. Skin is warm and dry. No diaphoresis Results & Data Results & Data Vital Signs (Past 12 Hours) Vital Signs Pulse Pulse Resp BP Pulse Ox O2 Del Method 05/27/24 10:33 68 16 136/96 100 Room Air 05/27/24 09:18 60 05/27/24 06:04 82 16 132/87 96 Room Air 05/27/24 01:55 75 PG Care Time/CCT Total # of Minutes Spent Total Time Spent with Patient: Total time spent is greater than 50% in coordination of care (as documented) at patient's floor/unit and/or counseling patient: Coding Diagnoses Alcohol use disorder, severe, dependence F10.20 Post traumatic stress disorder (PTSD) F43.10 Depression F32.A Depression Type: unspecified Alcohol withdrawal syndrome, with delirium F10.931 Complication of substance-induced condition: with delirium Elevated liver enzymes R74.8 Major depressive disorder, recurrent episode F33.9 Major depression episode severity: unspecified Anxiety F41.9 (3) Depression Depression Type: unspecified Qualified Code(s): F32.A - Depression, unspecified (4) Alcohol withdrawal Complication of substance-induced condition: with delirium Qualified Code(s): F10.931 - Alcohol use, unspecified with withdrawal delirium (6) Major depressive disorder, recurrent episode Major depression episode severity: unspecified Qualified Code(s): F33.9 - Major depressive disorder, recurrent, unspecified
--- NOTE | 2024-05-27 15:30 | Discharge Summary ---
Date of Service May 27, 2024 Admission HPI Per Admitting Provider Patient is a 34-year-old male past medical history relevant for alcohol use disorder with previous admissions for withdrawal, anxiety, PTSD, Depression w/ SI, and history of methamphetamine use who comes to the hospital due to experiencing abdominal pain. Patient states that since yesterday he has been experiencing increasing diaphoresis, palpitations, have been feeling more fidgety than usual, and last night had hallucinations involving people and other creatures and he did hear them in his room. He states that he believes his symptoms are attributed to feeling "super hot" after working outside for a long time. He states that he was drinking "4 gallons of Gatorade" due to feeling so hot. States that his last drink was a shot of [employer] vodka earlier today and that prior to this he did not have a drink other than 1 month ago. He denies any recent substance use and no recent changes in his medications. Patient states that he had been in a rehab facility earlier this year and that he had completed that. ED Course: NSS bolus 1L x2 given. Single dose of diazepam 5 mg given Labs/Imaging: CBC with hemoglobin of 16.9, no leukocytosis, platelets 294. CMP with mild hyponatremia of 134, bicarb of 25, and renal markers within reference range. Anion gap 13. LFTs with elevated AST at 64 with no other abnormalities, alcohol level below 10. UDS ordered but not collected. Medical History: [Reviewed] Medications: [Reviewed] Social History: [Reviewed] Discharge Data Consultations 05/26/24 21:14 ED Decision to Admit Stat 05/27/24 14:22 Consult Behavioral Health Liaison Routine Hospital Course (1) Elevated liver enzymes: Chun is a 33-year-old male with a history of alcohol abuse in remission who presented to the emergency department with nausea, vomiting, mild transaminitis and auditory/visual hallucinations. Patient endorsed having 1 drink since being at a rehab, but otherwise has not been drinking the past few weeks. Denied recreational drug use. Due to auditory and visual hallucinations, tremors, and general unwellness was admitted for observation and for evaluation of potential alcohol withdrawal. At time of hospitalist assessment following morning patient is greatly improved and is able to give a clear history. He reports that he abruptly discontinued his Seroquel about a week ago, placing him at risk for withdrawal syndrome which can include nausea/vomiting. In addition to this to help maintain sobriety he had been taking an [id number] remedy to help with cravings which he was aware contained a form of ephedrine. At the same time he was working in the 90 degree weather for an extended period of time and felt very hot sweaty and dehydrated. Suspect he most likely had a combination of Seroquel withdrawal, volume depletion, +/- contribution from ephedrine containing OTC product. His transaminitis had near completely resolved at the following morning, he was mentating at his normal baseline, and he was in his normal state of health. He has had intermittent nausea in the past, was prescribed Zofran as needed if needed but instructed to return to the ER if he had any recurrent abdominal pain or severe symptoms to which she was agreeable. At time of discharge reevaluation he felt his mood was normal, and he denied depression/anxiety. Denied SI/HI. [place] well and did not feel tremulous. Vital signs were stable and normal and he did not show any signs of ongoing alcohol withdrawal. Was discharged outpatient follow-up. Discharge exam patient was alert and oriented x 3, lungs were clear, heart rate was regular, upper extremity movements were without tremor, skin was warm and dry. Euthymic Total time spent day of discharge including coordination of care, reassessment, documentation, and review of labs and images approximately 1 hour (2) Alcohol use disorder, severe, dependence: (3) Post traumatic stress disorder (PTSD): (4) Depression: (5) Alcohol withdrawal: (6) Major depressive disorder, recurrent episode: (7) Anxiety: Coding Level of Care Code 99131 INP/OBS DISCH >30 MIN Diagnoses Elevated liver enzymes R74.8 Alcohol use disorder, severe, dependence F10.20 Post traumatic stress disorder (PTSD) F43.10 Depression F32.A Depression Type: unspecified Alcohol withdrawal syndrome, with delirium F10.931 Complication of substance-induced condition: with delirium Major depressive disorder, recurrent episode F33.9 Major depression episode severity: unspecified Anxiety F41.9
[2024-05-27 16:11] VITALS: BP 128/91; PULSE 97
[2024-05-27] MEDS ORDERED: QUEtiapine FUMARATE 100 MG TABLET PO SCH (21:00)
== END 2024-05-27 16:08 | disposition home or self-care (01) | DRG 897 ==
LOC: ED 18:59 → SUATTDRO 21:18 → EDINP 21:18

== ENCOUNTER 2025-03-09 13:59 | Inpatient (IN) ==
[2025-03-09 15:00] LABS: Basophils # (auto) 0.07 K/uL (0.00-0.20); Basophils % (auto) 0.9 %; Eosinophils # (auto) 0.07 K/uL (0.00-0.50); Eosinophils % (auto) 0.9 %; Hematocrit (blood only) 41.8 % (42.0-52.0); Hemoglobin 14.9 g/dl (14.0-18.0); Immature Granulocytes # (auto) 0.04 K/uL (0.01-0.20); Immature Granulocytes % (auto) 0.5 %; Lymphocytes # (auto) 2.86 K/uL (1.20-3.40); Lymphocytes % (auto) 37.6 %; Mean Corpuscular Hemoglobin 30.7 pg (25.0-34.0); Mean Corpuscular Hgb Conc 35.6 g/dL (32.0-36.0); Mean Corpuscular Volume 86.2 fL (80.0-100.0); Mean Platelet Volume 9.7 fL (9.4-12.4); Monocytes # (auto) 0.39 K/uL (0.11-0.59); Monocytes % (auto) 5.1 %; Neutrophils # (auto) 4.18 K/uL (1.40-6.50); Platelet Count 281 K/uL (130-400); RDW Coefficient of Variation 12.7 % (11.5-14.5); Red Blood Count 4.85 M/uL (4.70-6.10); White Blood Count 7.61 K/ul (4.8-10.8)
[2025-03-09 15:08] LABS: Appearance Urine Clear (Clear); Bilirubin Urine Negative (Negative); Blood Urine Trace-intact (Negative); Color Urine Yellow; Glucose Urine UA Negative (Negative); Ketones Urine Negative (Negative); Leukocyte Esterase Urine Negative (Negative); Nitrite Urine Negative (Negative); Protein Urine Negative (Negative); Urobilinogen Urine Negative (Negative)
[2025-03-09 15:18] LABS: Albumin Globulin Ratio 1.2 (0.9-2); Albumin Level 4.7 gm/dl (3.4-5.0); BUN Creatinine Ratio 12.4 (10-20); Bilirubin,Total 0.4 mg/dl (0.2-1.0); Calcium 9.7 mg/dl (8.6-10.3); Creatinine Clr Calc Pharmacy 128.4 ml/min; Globulin 3.9 gm/dl (2.5-4.0); Potassium 3.7 mmol/L (3.5-5.1); Total Protein 8.6 gm/dl (6.0-8.3)
[2025-03-09] MEDS ORDERED: Ativan PO Alcohol Withdrawal--Active Protocol PO PRN (15:19)
[2025-03-09] MEDS ORDERED: LORazepam 1 MG TAB PO PRN ×2 (15:19)
[2025-03-09 15:21] LABS: Bacteria Urine None Seen (None Seen); Epithelial Cell Urine 0-2 /hpf (0-2); WBC Urine 0-5 /hpf (0-5)
[2025-03-09 15:32] LABS: Thyroid Stimulating Hormone 1.232 uIu/ml (0.300-4.500)
[2025-03-09] MEDS: LORazepam 2 MG/1 ML VIAL IV STA ×2 (15:38→23:11)
[2025-03-09] MEDS: SODIUM CHLORIDE 0.9% 1,000 ML IV SCH (15:40)
--- NOTE | 2025-03-09 15:54 | Electrocardiogram Report ---
Test Reason : Blood Pressure : */* mmHG Vent. Rate : 96 BPM Atrial Rate : 96 BPM P-R Int : 160 ms QRS Dur : 96 ms QT Int : 342 ms P-R-T Axes : 55 72 54 degrees QTcB Int : 432 ms Normal sinus rhythm Possible Left atrial enlargement Borderline ECG When compared with ECG of 26-May-2024 19:19, Borderline criteria for Anterior infarct are no longer Present Borderline criteria for Anterolateral infarct are no longer Present Confirmed by Shayne Colón ([id number]) on 03/09/2025 3:53:56 PM Referred By: Confirmed By: Shayne Colón
--- NOTE | 2025-03-09 15:58 | Emergency Department Note ---
Impression & Plan Alcohol withdrawal, Suicidal ideations ED Provider Note CHIEF COMPLAINT: Thoughts of self-harm, alcohol abuse HISTORY OF PRESENT ILLNESS: This 35-year-old male patient past medical history of significant substance abuse, alcohol dependency presents to the emergency department with complaints of "not feeling well" anxiety, alcohol intoxication and thoughts of self-harm. He states he "knows how to answer this question" so that he does not end up with a 302. He states he is very upset when people do not get along. He did recently stop using methamphetamine about 3 months ago. He stopped all of his prescription medications, approximately 7 of them. REVIEW OF SYSTEMS: A review of systems was performed with positives and pertinent negatives listed in the history of present illness. 10 systems were reviewed and are otherwise negative. ALLERGIES: see below MEDICATIONS: see below PMH: see below SOCIAL HISTORY: see below DDx: Alcohol withdrawal, substance abuse, medication omission, anxiety, depression, metabolic abnormality, suicidal ideation among others. PHYSICAL EXAM: Vital signs reviewed. General: anxious but otherwise well-appearing 35-year-old male, no significant distress HEENT: No scleral icterus, PERRLA, neck supple. Atraumatic. Cardiovascular: tachycardic but regular, no extra sounds Pulmonary: Clear to auscultation bilaterally, normal work of breathing. Abdomen: Soft, nontender, nondistended, positive bowel sounds. Musculoskeletal: Atraumatic, no peripheral edema. Neurologic: Patient awake alert and oriented x 3, speech is clear Psychiatric: Positive thoughts of self-harm, no clear suicidal ideation, no homicidal ideation Skin: Warm, dry, no rash EMERGENCY DEPARTMENT COURSE/MDM: this patient was evaluated and appeared to be in no significant distress. IV access was obtained and laboratory work was drawn. Patient was hydrated with IV normal saline solution, given IV folate and thiamine. He did request something for "anxiety" and was given 2 mg of Ativan. Patient was able to rest and had some good control of vital signs for several hours. Patient's blood alcohol levels noted to be 292. Patient was placed on the alcohol withdrawal severity score protocol. He did require additional IV Ativan to help control his symptoms. At the recommendation of case management, patient will be evaluated by the hospitalist service for admission and psychiatric consultation. Case was discussed with Dr. Herrera of the hospitalist service who will evaluate the patient for further management. MONITORING: An order for cardiac monitoring was placed and the patient is noted to be in a sinus tachycardia at 126 beats per minute. EKG: to my interpretation reveals a normal sinus rhythm at 96 bpm, left atrial enlargement, QTc of 432, normal ST segments. No PVC, no PAC. DISPOSITION: Admission Past Med/Surg History Problem List (Updated 03/12/25 @ 00:50 by Kisha Roa MD) Nicotine use Methamphetamine use Post traumatic stress disorder (PTSD) (Chronic) Suicidal ideations (Acute) Depression (Acute) Alcohol withdrawal (Acute) Elevated liver enzymes Major depressive disorder, recurrent episode (Acute) Enlarged liver (Acute) Seasonal allergies (Acute) Anxiety (Acute) Medical History Alcohol use disorder, severe, dependence Acute dehydration Heart palpitations Alcohol intoxication Hypokalemia COVID-19 Transaminitis Acid reflux Tobacco abuse Homicidal ideation Depression with suicidal ideation Alcohol intoxication 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 Diplopia Anxiety and depression Depressive disorder Alcoholic hepatitis Lab test negative for COVID-19 virus No pertinent family history BRITTNY (generalized anxiety disorder) Left leg cellulitis Headache Dizziness Surgical History No pertinent past surgical history Family History Mother Other No significant family history Denies family history of Ovarian cancer Prostate cancer Myocardial infarction Breast cancer Colorectal cancer Hypertension Social History Smoking Status: Former smoker Tobacco Type: Cigarettes Second Hand Exposure: No; Do You Dip or Chew Tobacco: No; Hx Alcohol Use: Yes Alcohol type: hard liquor Hx Substance Use: Yes Preferred Language: Irish Communication Ability: Effective Visual Impairment: No Limitations Hearing Ability: Normal Animal Caretaker Required: No Beliefs That Will Affect Care: None marital status: marital status details: Current Living Situation: Alone current occupational status: employed How many Children do You have: 1 Other Information That Helps Us Care for You: No Feels Safe at Home: Yes Safety Concerns: Feels Safe At This Time Childhood Exposure to Second-Hand Smoke: No Diet: regular Dental Care, Regularly: Yes Physical Activity Frequency: Daily Seatbelt Use: always Sunscreen Use: No Assistive Devices: None Allergies Allergies Allergy/AdvReac Type Severity Reaction Status Date / Time Antihistamines - Alkylamine AdvReac Intermediate "Just Verified 05/26/24 21:42 Don't Feel Right When I Take Them" Antihistamines - Ethanolamine AdvReac Intermediate "Just Verified 05/26/24 21:42 Don't Feel Right When I Take Them" Antihistamines - AdvReac Intermediate "Just Verified 05/26/24 21:42 Ethylenediamine Don't Feel Right When I Take Them" Antihistamines - Piperazine AdvReac Intermediate "Just Verified 05/26/24 21:42 Don't Feel Right When I Take Them" Antihistamines - Piperidine AdvReac Intermediate "Just Verified 05/26/24 21:42 Don't Feel Right When I Take Them" buspirone [From BuSpar] AdvReac Intermediate Shaking/john Verified 05/26/24 21:42 mor Home Meds Home Medications Medication Instructions Recorded Confirmed buprenorphine 8 mg-naloxone 2 mg 2.5 tab sublingual DAILY 05/27/24 03/09/25 sublingual tablet Previous Rx's Medication Instructions Recorded bupropion HCl 100 mg tablet,12 hr 100 mg PO QAM #30 ea 12/28/23 sustained-release escitalopram oxalate 10 mg tablet 10 mg PO QAM #30 tabs 12/28/23 escitalopram oxalate 5 mg tablet 5 mg PO QAM #30 tabs 12/28/23 pantoprazole 40 mg tablet,delayed 40 mg PO QAM #30 tabs 12/28/23 release quetiapine 100 mg tablet 100 mg PO HS #15 tabs 12/28/23 Results & Data (ED) Vital Signs Vital Signs - 24 hr 03/09/25 13:59 03/09/25 14:03 03/09/25 15:19 Temperature 36.7 C Temperature Source Skin Pulse Rate 126 H Pulse Rate [Left Finger] 146 H Respiratory Rate 18 20 20 Respiratory Effort / Characteristics Non-Labored Spontaneous Respiratory Depth Normal Respiratory Pattern Regular Blood Pressure 165/105 H Blood Pressure [Left Arm] 156/99 H Blood Pressure Mean 125 Blood Pressure Mean [Left Arm] 118 Pulse Oximetry 99 98 Oxygen Delivery Method Room Air Sepsis Recent Fever Within 48 Hours No Sepsis New/Unexplained Change in Mental Status N/A Sepsis Action Taken by Nursing No Action Required Home Medications Current Medication List: was personally reviewed by me Laboratory Data Attestation: I reviewed the patient's lab results. 03/10/25 04:51 03/10/25 04:51 Lab Results 03/09/25 03/09/25 Range/Units 14:10 14:20 WBC 7.61 (4.8-10.8) K/ul RBC 4.85 (4.70-6.10) M/uL Hgb 14.9 (14.0-18.0) g/dl Hct 41.8 L (42.0-52.0) % MCV 86.2 (80.0-100.0) fL MCH 30.7 (25.0-34.0) pg MCHC 35.6 (32.0-36.0) g/dL RDW Std Deviation 40.0 (36.4-46.3) fL RDW Coeff of Bryanna 12.7 (11.5-14.5) % Plt Count 281 (130-400) K/uL MPV 9.7 (9.4-12.4) fL Immature Gran % (Auto) 0.5 % Neut % (Auto) 55.0 % Lymph % (Auto) 37.6 % [place] % (Auto) 5.1 % Eos % (Auto) 0.9 % Baso % (Auto) 0.9 % Neut # (Auto) 4.18 (1.40-6.50) K/uL Lymph # (Auto) 2.86 (1.20-3.40) K/uL [place] # (Auto) 0.39 (0.11-0.59) K/uL Eos # (Auto) 0.07 (0.00-0.50) K/uL Baso # (Auto) 0.07 (0.00-0.20) K/uL Immature Gran # (Auto) 0.04 (0.01-0.20) K/uL Sodium 142 (136-145) mmol/L Potassium 3.7 (3.5-5.1) mmol/L Chloride 103 (98-107) mmol/L Carbon Dioxide 27 (21-32) mmol/L Anion Gap 12 H (3-11) BUN 11 (6-23) mg/dl Creatinine 0.89 (0.6-1.4) mg/dl Est Cr Clr Drug Dosing 128.4 ml/min eGFR 115.32 BUN/Creatinine Ratio 12.4 (10-20) Glucose 119 H (70-99(Fasting)) mg/dl Calcium 9.7 (8.6-10.3) mg/dl Total Bilirubin 0.4 (0.2-1.0) mg/dl AST 36 (13-39) U/L ALT 24 (7-52) U/L Alkaline Phosphatase 66 (34-104) U/L Total Protein 8.6 H (6.0-8.3) gm/dl Albumin 4.7 (3.4-5.0) gm/dl Globulin 3.9 (2.5-4.0) gm/dl Albumin/Globulin Ratio 1.2 (0.9-2) TSH 1.232 (0.300-4.500) uIu/ml Urine Color Yellow Urine Appearance Clear (Clear) Urine pH 7.0 (4.5-7.5) Ur Specific [place] 1.010 (1.000-1.030) Urine Protein Negative (Negative) Urine Glucose (UA) Negative (Negative) Urine Ketones Negative (Negative) Urine Blood Trace-intact H (Negative) Urine Nitrite Negative (Negative) Urine Bilirubin Negative (Negative) Urine Urobilinogen Negative (Negative) Ur Leukocyte Esterase Negative (Negative) Urine RBC 3-5 H (0-2) /hpf Urine WBC 0-5 (0-5) /hpf Ur Epithelial Cells 0-2 (0-2) /hpf Urine Bacteria None Seen (None Seen) Urine Comment Salicylates < 3.0 L (3.0-30) mg/dl Urine Opiates Screen Neg (Neg) Ur Methadone, Qual Neg (Neg) Urine Fentanyl Screen Neg (Neg) Acetaminophen < 3 L (10-30) ug/ml Urine Barbiturates Neg (Neg) Ur Phencyclidine (PCP) Neg (Neg) U Amphetamin/Meth Scrn Neg (Neg) MDMA (Ecstasy) Screen Neg (Neg) U Benzodiazepines Scrn Neg (Neg) Ur Cocaine Metabolite Neg (Neg) U Marijuana (THC) Screen Neg (Neg) Ethyl Alcohol mg/dL 292.6 H (<10.0) mg/dl SARS-CoV-2, RNA, NAAT NEGATIVE (NEGATIVE) Administered Medications Chlordiazepoxide HCl (Chlordiazepoxide Hcl 25 Mg Cap) 25 mg PO Q8H XIOMY Stop: 03/12/25 15:46 Last Admin: 03/11/25 23:35 Dose: 25 mg Documented By: AKTeofilo Clonidine HCl (Clonidine Hcl 0.1 Mg Tab) 0.1 mg PO HS ON LICENSE OF [facility] Stop: 04/09/25 20:59 Last Admin: 03/11/25 20:37 Dose: 0.1 mg Documented By: Admin: 03/10/25 21:45 Dose: 0.1 mg Documented By: [facility] Escitalopram Oxalate ([facility]italopram Oxalate 10 Mg Tab) [facility] Stop: 04/10/25 08:59 Last Admin: 03/11/25 09:04 Dose: 10 mg Documented By: PK Folic Acid 1 mg/ Syringe 10 mls @ 5 mls/[facility] [place] Stop: 04/09/25 08:59 Last Admin: 03/11/25 09:04 Dose: 5 mls/min Documented By: Admin: 03/10/25 09:05 Dose: 5 mls/min Documented By: [facility] [place] Thiamine HCl 100 mg/ Syringe 10 mls @ 2 mls/[facility] [place] Stop: 04/09/25 08:59 Last Admin: 03/11/25 09:04 Dose: 2 mls/min Documented By: Admin: 03/10/25 09:05 Dose: 2 mls/min Documented By: [facility] [place] Lorazepam (Lorazepam 2 Mg/1 Ml Vial) 2 mg IV UD PRN; Protocol PRN Reason: EtOH Withdrawal AWSS Score 8,9 Stop: 04/08/25 23:40 Last Admin: 03/10/25 04:00 Dose: 2 mg Documented By: Hasmukh Lorazepam (Lorazepam 2 Mg/1 Ml Vial) 1 mg IV UD PRN; Protocol PRN Reason: EtOH Withdrawal AWSS Score 6,7 Stop: 04/08/25 23:40 Last Admin: 03/11/25 04:07 Dose: 1 mg [place] [facility] [place]atonin (Melatonin 3 Mg Tab) 3 mg PO HS PRN PRN Reason: Sleep Stop: 04/08/25 23:40 Last Admin: 03/11/25 20:40 Dose: 3 mg Documented [place] [facility] [place] Miscellaneous (Remove Nicoderm Patch) 1 each N/A DAILY@0859 ON LICENSE OF [facility] Stop: 04/09/25 08:58 Last Admin: 03/11/25 09:04 Dose: 1 each Documented By: Admin: 03/10/25 09:14 Dose: Not Given Documented By: [facility] [place] Multivitamins (Multivitamin Tab) 1 [facility] [place] Stop: 04/09/25 08:59 Last Admin: 03/11/25 09:04 Dose: 1 tab Documented By: Admin: 03/10/25 09:09 Dose: 1 tab Documented By: [facility] [place] Nicotine (Nicotine 14 Mg/24 Hr Patch) 1 patch [facility] [place] Stop: 04/09/25 08:59 Last Admin: 03/11/25 09:04 Dose: 1 patch Documented By: Admin: 03/10/25 09:07 Dose: 1 patch Documented By: [facility] [place] Ondansetron HCl (Ondansetron Inj 2 Mg/Ml 2 Ml Vial) 4 mg IV Q6H PRN PRN Reason: Nausea And Vomiting Stop: 04/08/25 23:40 Last Admin: 03/11/25 20:38 Dose: 4 mg Documented By: SANGITA Quetiapine Fumarate (Quetiapine Fumarate 100 Mg Tablet) 100 mg PO HS XIOMY Stop: 04/09/25 20:59 Last Admin: 03/11/25 20:37 Dose: 100 mg Documented By: Admin: 03/10/25 21:45 Dose: 100 mg Documented By: SANGITA Discontinued Medications Chlordiazepoxide HCl (Chlordiazepoxide Hcl 25 Mg Cap) 50 mg PO Q8H XIOMY Stop: 03/11/25 15:46 Last Admin: 03/11/25 16:39 Dose: 50 mg Documented By: Admin: 03/11/25 09:04 Dose: 50 mg Documented By: Admin: 03/10/25 23:38 Dose: 50 mg [place]ed [place] [facility] [place] Chlordiazepoxide HCl (Chlordiazepoxide Hcl 25 Mg Cap) 50 mg PO Q6H XIOMY Stop: 03/10/25 17:42 Last Admin: 03/10/25 17:50 Dose: 50 mg Documented By: Admin: 03/10/25 11:57 Dose: 50 mg Documented By: Admin: 03/10/25 04:57 Dose: 50 mg Documented By: Admin: 03/10/25 00:44 Dose: 50 mg Documented By: EJW Sodium Chloride (Nss) 1,000 mls @ 999 mls/hr IV .Q1H1M XIOMY Stop: 03/09/25 16:18 Last Infusion: 03/09/25 16:40 Dose: Infused Documented By: Admin: 03/09/25 15:40 Dose: 999 mls/hr Documented By: LUKE Thiamine HCl 500 mg/ Sodium (Chloride) 55 mls @ 210 mls/hr IV NOW STA Stop: 03/09/25 15:33 Last Infusion: 03/09/25 19:22 Dose: Infused Documented By: Admin: 03/09/25 17:17 Dose: 210 mls/hr Documented By: LUKE Folic Acid 1 mg/ Syringe 10 mls @ 5 mls/min IV NOW STA Stop: 03/09/25 15:19 Last Admin: 03/09/25 17:17 Dose: 5 mls/min Documented By: LUKE Lactated Ringer's (Lr) 1,000 mls @ 125 mls/hr IV .Q8H XIOMY Stop: 03/10/25 06:14 Last Infusion: 03/10/25 06:52 Dose: Infused Documented By: Admin: 03/09/25 23:13 Dose: 125 mls/hr Documented By: GARRY Lorazepam (Lorazepam 2 Mg/1 Ml Vial) 2 mg IV NOW STA Stop: 03/09/25 15:20 Last Admin: 03/09/25 15:38 Dose: 2 mg Documented By: LUKE Lorazepam (Lorazepam 1 Mg Tab) 2 mg PO UD PRN; Protocol PRN Reason: EtOH Withdrawal AWSS Score 8,9 Stop: 04/08/25 15:18 Last Admin: 03/09/25 20:11 Dose: 2 mg Documented By: BEAU Lorazepam (Lorazepam 2 Mg/1 Ml Vial) 1 mg IV NOW STA Stop: 03/09/25 22:02 Last Admin: 03/09/25 23:11 Dose: 1 mg Documented By: GARRY Multivitamins (Multivitamin Tab) 1 tab PO NOW STA Stop: 03/09/25 15:19 Last Admin: 03/09/25 17:17 Dose: 1 tab Documented By: LUKE Discharge Plan Visit Data Chief Complaint: Mental Health Evaluation Stated Complaint: MENTAL HEALTH EVAL ED Provider: Kisha Roa Discharge Problem: Alcohol withdrawal, Suicidal ideations Patient Disposition: Admitted As Inpatient Condition: Fair Discharge Instructions Interventions: ED Discharge Assessment Last Done: 03/09/25 23:40 Discharge Problem: Alcohol withdrawal Qualifiers: Complication of substance-induced condition: uncomplicated Qualified Code(s): F 10.930 - Alcohol use, unspecified with withdrawal, uncomplicated
[2025-03-09 16:12] LABS: Acetaminophen < 3 ug/ml (10-30); Salicylate < 3.0 mg/dl (3.0-30)
[2025-03-09 16:12] LABS: Amphetamines+Metham, Urine Neg (Neg); Barbiturates, Urine Neg (Neg); Benzodiazepine, Urine Neg (Neg); Cocaine, Urine Neg (Neg); Fentanyl, Urine Neg (Neg); MDMA (Ecstacy), Urine Neg (Neg); Marijuana, Urine Neg (Neg); Methadone, Urine Neg (Neg); Opiate, Urine Neg (Neg); Phencyclidine, Urine Neg (Neg)
[2025-03-09] MEDS: MULTIVITAMIN TAB PO STA (17:17)
[2025-03-09] MEDS: THIAMINE HCL 500 MG in SODIUM CHLORIDE 0.9% 50 ML IV STA (17:17)
[2025-03-09] MEDS: FOLIC ACID 1 MG in SYRINGE 9.8 ML IV STA (17:17)
[2025-03-09] MEDS: LORazepam 1 MG TAB PO PRN (20:11)
--- NOTE | 2025-03-09 21:26 | History & Physical Report ---
Date of Service March 09, 2025 Assessment & Plan (1) Alcohol withdrawal: (2) Suicidal ideations: (3) Depression: (4) Post traumatic stress disorder (PTSD): (5) Nicotine use: Plan Patient is a 35-year-old male past medical history PTSD, depression with suicidal ideation, substance use, chronic alcohol use. Patient presented due to thoughts of self-harm after stopping all home psychiatric medications for several months and for alcohol withdrawal/detox request. #Alcohol withdrawal - numerous withdrawal admissions in the past (does well with Ativan and Librium taper). LFTs WNL. Relapsed approximately 1.5 weeks ago; 25 standard drinks daily, last drink 03/09 AM. EtOH to 292.6 on admission. UDS negative. - Received 1L NSS bolus in ED, continue fluid resuscitation with LR at 125 mL/hour x1L - AWSS active protocol with IV Ativan - Librium taper ordered - received thiamine 500 Mg IV and folic acid 1 Mg IV in ED - ordered Thiamine IV 100mg and folic acid 1mg IV QAM - Multivitamin PO daily - B12 with AM labs - seizure precautions - CMP with am labs #Suicidal ideation/depression/PTSD/insomnia - presented with suicidal ideation and significant anxiety; persisting at time of admission. Patient reports stopped all home psychiatric medications several months ago. Psychiatry consulted continue to hold home medications, psychiatry recommendations appreciated regarding resuming home meds One-to-one ordered Safety tray ordered #Nicotine use - vaping daily - nicotine patched ordered - encourage smoking cessation #Substance use - history of methamphetamine use, patient reports stopped approximately 3 months ago. UDS negative in ED. VTE ppx: SCDs, low risk and able to ambulate Dispo: PCU Admission and Anticipated Discharge Date Admission Date: 03/09/25 History of Present Illness Chief Complaint: mental health eval Primary Care Provider: Bri Cervantes MD Patient is a 35-year-old male past medical history PTSD, depression with suicidal ideation, substance use, chronic alcohol use. Patient presented due to thoughts of self-harm after stopping all home psychiatric medications for several months and for alcohol withdrawal/detox request. Patient seen at bedside. He is anxious and currently having thoughts of self- harm, "however knows how to answer that question". He stated he has been confused today, not feeling well, and with significant anxiety. He stated he stopped all of his home psych medications several months ago. Patient stated he did quit drinking alcohol however resumed approximately a week and a half ago. In the past he drank 35-40 standard drinks a day however with this relapse, he has been drinking approximately 25 standard beverages a day consisting of a mixture of beer, liquor, and wine. His last drink was this morning, EtOH level to 92.6 at time of admission. He stated with previous withdrawals he has done well with Ativan and Librium taper, he denies any history of seizures. He is feeling anxious, jittery, diaphoretic, dizzy at this time. He denies any chest pain or heart palpitations. He stated he uses nicotine products through vaping daily, nicotine patch ordered. He denies any illicit drug use, stopped methamphetamine approximately 3 months ago. He believes he has been overthinking things that happened resulting in significant anxiety today. Patient is agreeable to alcohol detox and psych consult/resuming previous medications. Allergies Allergy/AdvReac Type Severity Reaction Status Date / Time Antihistamines - Alkylamine AdvReac Intermediate "Just Verified 05/26/24 21:42 Don't Feel Right When I Take Them" Antihistamines - Ethanolamine AdvReac Intermediate "Just Verified 05/26/24 21:42 Don't Feel Right When I Take Them" Antihistamines - AdvReac Intermediate "Just Verified 05/26/24 21:42 Ethylenediamine Don't Feel Right When I Take Them" Antihistamines - Piperazine AdvReac Intermediate "Just Verified 05/26/24 21:42 Don't Feel Right When I Take Them" Antihistamines - Piperidine AdvReac Intermediate "Just Verified 05/26/24 21:42 Don't Feel Right When I Take Them" buspirone [From BuSpar] AdvReac Intermediate Shaking/john Verified 05/26/24 21:42 mor Home Medications Medication Instructions Recorded Confirmed Type bupropion HCl 100 mg tablet,12 hr 100 mg PO QAM #30 ea 12/28/23 03/09/25 Rx sustained-release escitalopram oxalate 10 mg tablet 10 mg PO QAM #30 tabs 12/28/23 03/09/25 Rx escitalopram oxalate 5 mg tablet 5 mg PO QAM #30 tabs 12/28/23 03/09/25 Rx pantoprazole 40 mg tablet,delayed 40 mg PO QAM #30 tabs 12/28/23 03/09/25 Rx release quetiapine 100 mg tablet 100 mg PO HS #15 tabs 12/28/23 03/09/25 Rx buprenorphine 8 mg-naloxone 2 mg 2.5 tab sublingual DAILY 05/27/24 03/09/25 History sublingual tablet Past Med/Surg History Problem List (Updated 03/09/25 @ 22:07 by Rere Becker PA-C) Nicotine use Methamphetamine use Post traumatic stress disorder (PTSD) (Chronic) Suicidal ideations (Acute) Depression (Acute) Alcohol withdrawal (Acute) Elevated liver enzymes Major depressive disorder, recurrent episode (Acute) Enlarged liver (Acute) Seasonal allergies (Acute) Anxiety (Acute) Medical History Alcohol use disorder, severe, dependence Acute dehydration Heart palpitations Alcohol intoxication Hypokalemia COVID-19 Transaminitis Acid reflux Tobacco abuse Homicidal ideation Depression with suicidal ideation Alcohol intoxication 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 Diplopia Anxiety and depression Depressive disorder Alcoholic hepatitis Lab test negative for COVID-19 virus No pertinent family history BRITTNY (generalized anxiety disorder) Left leg cellulitis Headache Dizziness Surgical History No pertinent past surgical history Family History Mother Other No significant family history Denies family history of Ovarian cancer Prostate cancer Myocardial infarction Breast cancer Colorectal cancer Hypertension Social History Smoking Status: Former smoker Tobacco Type: Cigarettes Second Hand Exposure: No; Do You Dip or Chew Tobacco: No; Hx Alcohol Use: Yes Alcohol type: hard liquor Hx Substance Use: Yes Preferred Language: Irish Communication Ability: Effective Visual Impairment: No Limitations Hearing Ability: Normal 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 Liaison Required: No Beliefs That Will Affect Care: None marital status: marital status details: Current Living Situation: Alone current occupational status: employed How many Children do You have: 1 Other Information That Helps Us Care for You: No Feels Safe at Home: Yes Safety Concerns: Feels Safe At This Time Childhood Exposure to Second-Hand Smoke: No Diet: regular Dental Care, Regularly: Yes Physical Activity Frequency: Daily Seatbelt Use: always Sunscreen Use: No Assistive Devices: None Review of Systems Review of Systems: see HPI Physical Exam Physical Exam: The patient is awake, alert and oriented 3, jittery, diaphoretic. HEENT- EOMI, mucous membranes moist. Hearing grossly intact. Heart-normal S1 and S2. No murmurs, rubs or gallops. Lungs-clear bilaterally, no respiratory distress, no accessory muscle use. Abdomen-normal bowel sounds and soft. No ascites noted. Non-tender. Extremities- no clubbing, cyanosis, or edema. Rheumatologic-normal range of motion. Psychiatric-anxious affect. Results & Data Results & Data Vital Signs (Past 12 Hours) Vital Signs Temp Pulse Pulse Resp BP BP Pulse Ox 03/09/25 20:03 111 H 27 H 147/91 H 97 03/09/25 19:58 84 03/09/25 19:44 86 12 147/90 H 97 03/09/25 19:00 84 12 120/80 03/09/25 17:00 79 20 111/68 98 03/09/25 16:10 83 03/09/25 15:19 146 H 20 156/99 H 98 03/09/25 14:03 36.7 C 126 H 20 165/105 H 99 03/09/25 13:59 18 O2 Del Method 03/09/25 20:03 Room Air 03/09/25 19:58 03/09/25 19:44 Room Air 03/09/25 19:00 03/09/25 17:00 03/09/25 16:10 03/09/25 15:19 03/09/25 14:03 Room Air 03/09/25 13:59 Laboratory Results Reviewed CBC and CMP, TSH, UA, UDS, EtOH, COVID swab Medications Administered ED1L NSS bolus, thiamine 500 Mg IV, folic acid 1 Mg IV, Ativan 2 Mg IV, Ativan 2mg PO, multivitamin tablet admission - 1mg IV Ativan ECG Additional Comments: NSR, rate 96 QTc 432 Code Status & VTE Plan Code Status will make full code given thoughts of suicidal ideation VTE Prophylaxis Plan VTE Prophylaxis will be ordered: Yes Supervising Physician Co-Signing Physician Notes I personally saw and examined the patient. I independently reviewed the labs, EKG, imaging, problem list, medication list, past medical history and family history. I verified all abel points and agree with Rere Bceker PA-C with the following exceptions and/or additions: 35 year old male presents to the ER with intermittent suicidal ideation and alcohol withdrawal O/E HS RRR, no murmurs, Chest CTAB, Abdo SNT A/P Alcohol withdrawal - multiple similar episodes and does well with Librium previously therefore this is prescribed again with Ativan as needed per AWSS PG Care Time/CCT Total # of Minutes Spent Total Time Spent with Patient: Total time spent is greater than 50% in coordination of care (as documented) at patient's floor/unit and/or counseling patient: Coding Level of Care Code 93571 INT INP/OBS CARE MIN Diagnoses Alcohol withdrawal syndrome, with delirium F10.931 Complication of substance-induced condition: with delirium Suicidal ideations R45.851 Depression F32.A Depression Type: unspecified Post traumatic stress disorder (PTSD) F43.10 Nicotine use Z72.0 (1) Alcohol withdrawal Complication of substance-induced condition: with delirium Qualified Code(s): F10.931 - Alcohol use, unspecified with withdrawal delirium (3) Depression Depression Type: unspecified Qualified Code(s): F32.A - Depression, unspecified
[2025-03-09] MEDS: LACTATED RINGER'S 1,000 ML IV SCH (23:13)
[2025-03-09] MEDS ORDERED: LORazepam 2 MG/1 ML VIAL IV PRN (23:41)
[2025-03-09] MEDS ORDERED: chlordiazePOXIDE ALCOHOL WITHDRAWL 50MG PO STA (23:41)
[2025-03-09] MEDS ORDERED: DOCUSATE SODIUM 100 MG CAP PO PRN (23:41)
[2025-03-09] MEDS ORDERED: ACETAMINOPHEN 325 MG TAB PO PRN (23:41)
[2025-03-09] MEDS ORDERED: Ativan IV Alcohol Withdrawal--Active Protocol IV PRN (23:41)
[2025-03-10] MEDS: chlordiazePOXIDE HCl 25 MG CAP PO SCH ×2 (00:44→23:38)
[2025-03-10] MEDS: LORazepam 2 MG/1 ML VIAL IV PRN (04:00)
[2025-03-10 05:14] LABS: Basophils # (auto) 0.06 K/uL (0.00-0.20); Basophils % (auto) 0.9 %; Eosinophils # (auto) 0.13 K/uL (0.00-0.50); Hematocrit (blood only) 37.9 % (42.0-52.0); Hemoglobin 13.4 g/dl (14.0-18.0); Immature Granulocytes # (auto) 0.02 K/uL (0.01-0.20); Immature Granulocytes % (auto) 0.3 %; Lymphocytes # (auto) 2.47 K/uL (1.20-3.40); Lymphocytes % (auto) 38.1 %; Mean Corpuscular Hemoglobin 31.2 pg (25.0-34.0); Mean Corpuscular Hgb Conc 35.4 g/dL (32.0-36.0); Mean Corpuscular Volume 88.1 fL (80.0-100.0); Monocytes # (auto) 0.37 K/uL (0.11-0.59); Monocytes % (auto) 5.7 %; Neutrophils # (auto) 3.44 K/uL (1.40-6.50); Platelet Count 205 K/uL (130-400); RDW Coefficient of Variation 12.6 % (11.5-14.5); RDW Standard Deviation 40.9 fL (36.4-46.3); White Blood Count 6.49 K/ul (4.8-10.8)
[2025-03-10 05:37] LABS: Albumin Level 4.1 gm/dl (3.4-5.0); Bilirubin,Total 0.7 mg/dl (0.2-1.0); Calcium 9.2 mg/dl (8.6-10.3); Magnesium 1.9 mg/dl (1.7-2.4); Potassium 3.9 mmol/L (3.5-5.1)
[2025-03-10 05:43] LABS: Albumin Globulin Ratio 1.4 (0.9-2); BUN Creatinine Ratio 14.9 (10-20); Creatinine Clr Calc Pharmacy 131.3 ml/min; Total Protein 7.1 gm/dl (6.0-8.3)
[2025-03-10] MEDS: THIAMINE HCL 100 MG in SYRINGE 9 ML IV SCH (09:05)
[2025-03-10] MEDS: FOLIC ACID 1 MG in SYRINGE 9.8 ML IV SCH (09:05)
[2025-03-10] MEDS: NICOTINE 14 MG/24 HR PATCH TD SCH (09:07)
[2025-03-10] MEDS: MULTIVITAMIN TAB PO SCH (09:09)
[2025-03-10] MEDS: QUEtiapine FUMARATE 100 MG TABLET PO SCH (21:45)
[2025-03-10] MEDS: cloNIDine HCL 0.1 MG TAB PO SCH (21:45)
--- NOTE | 2025-03-10 22:35 | Hospitalist Progress Note ---
Date of Service March 10, 2025 Assessment & Plan (1) Alcohol withdrawal: (2) Suicidal ideations: (3) Depression: (4) Post traumatic stress disorder (PTSD): (5) Nicotine use: Plan Patient is a 35-year-old male past medical history PTSD, depression with suicidal ideation, substance use, chronic alcohol use. Patient presented due to thoughts of self-harm after stopping all home psychiatric medications for several months and for alcohol withdrawal/detox request. #Alcohol withdrawal - numerous withdrawal admissions in the past (does well with Ativan and Librium taper). LFTs WNL. Relapsed approximately 1.5 weeks ago; 25 standard drinks daily, last drink 03/09 AM. EtOH to 292.6 on admission. UDS negative. - Received 1L NSS bolus in ED, continue fluid resuscitation with LR at 125 mL/hour x1L - AWSS active protocol with IV Ativan - Librium taper ordered - received thiamine 500 Mg IV and folic acid 1 Mg IV in ED - ordered Thiamine IV 100mg and folic acid 1mg IV QAM - Multivitamin PO daily --withdrawal signs appear controlled #Suicidal ideation/depression/PTSD/insomnia - presented with suicidal ideation and significant anxiety; persisting at time of admission. Patient reports stopped all home psychiatric medications several months ago. Psychiatry consulted continue to hold home medications, psychiatry recommendations appreciated regarding resuming home meds One-to-one ordered Safety tray ordered -resume clonidine for HS, seroquel HS starting tonight Lexapro 10 mg in the AM starting tomorrow #Nicotine use - vaping daily - nicotine patched ordered - encourage smoking cessation #Substance use - history of methamphetamine use, patient reports stopped approximately 3 months ago. UDS negative in ED. VTE ppx: SCDs, low risk and able to ambulate Dispo: PCU Admission and Anticipated Discharge Date Admission Date: March 09, 2025 Subjective Patient reports feeling well. He has no new complaints. Physical Exam Physical Exam: The patient is awake, alert and oriented 3, jittery, diaphoretic. HEENT- EOMI, mucous membranes moist. Hearing grossly intact. Heart-normal S1 and S2. No murmurs, rubs or gallops. Lungs-clear bilaterally, no respiratory distress, no accessory muscle use. Abdomen-normal bowel sounds and soft. No ascites noted. Non-tender. Extremities- no clubbing, cyanosis, or edema. Rheumatologic-normal range of motion. Psychiatric-anxious affect. Results & Data Results & Data Vital Signs (Past 12 Hours) Vital Signs Temp Pulse Pulse Resp BP Pulse Ox O2 Del Method 03/10/25 22:14 60 03/10/25 19:56 36.8 C 76 18 126/82 95 Room Air 03/10/25 15:00 66 03/10/25 15:00 36.5 C 70 17 150/98 H 97 Room Air 03/10/25 14:00 56 L 16 132/90 96 Room Air 03/10/25 11:56 36.9 C 56 L 13 135/85 96 Room Air PG Care Time/CCT Total # of Minutes Spent Total Time Spent with Patient: Total time spent is greater than 50% in coordination of care (as documented) at patient's floor/unit and/or counseling patient: Coding Level of Care Code 48665 SUB INP/OBS CARE 3/50MIN Diagnoses Alcohol withdrawal syndrome, with delirium F10.931 Complication of substance-induced condition: with delirium Suicidal ideations R45.851 Depression F32.A Depression Type: unspecified Post traumatic stress disorder (PTSD) F43.10 Nicotine use Z72.0 (1) Alcohol withdrawal Complication of substance-induced condition: with delirium Qualified Code(s): F10.931 - Alcohol use, unspecified with withdrawal delirium (3) Depression Depression Type: unspecified Qualified Code(s): F32.A - Depression, unspecified
[2025-03-11] MEDS: LORazepam 2 MG/1 ML VIAL IV PRN (04:07)
[2025-03-11] MEDS: ESCITALOPRAM OXALATE 10 MG TAB PO SCH (09:04)
--- NOTE | 2025-03-11 20:17 | Hospitalist Progress Note ---
Date of Service March 11, 2025 Assessment & Plan (1) Alcohol withdrawal: (2) Suicidal ideations: (3) Depression: (4) Post traumatic stress disorder (PTSD): (5) Nicotine use: Plan Patient is a 35-year-old male past medical history PTSD, depression with suicidal ideation, substance use, chronic alcohol use. Patient presented due to thoughts of self-harm after stopping all home psychiatric medications for several months and for alcohol withdrawal/detox request. #Alcohol withdrawal - numerous withdrawal admissions in the past (does well with Ativan and Librium taper). LFTs WNL. Relapsed approximately 1.5 weeks ago; 25 standard drinks daily, last drink 03/09 AM. EtOH to 292.6 on admission. UDS negative. - Received 1L NSS bolus in ED, continue fluid resuscitation with LR at 125 mL/hour x1L - AWSS active protocol with IV Ativan - Librium taper ordered - received thiamine 500 Mg IV and folic acid 1 Mg IV in ED - ordered Thiamine IV 100mg and folic acid 1mg IV QAM - Multivitamin PO daily --withdrawal signs appear controlled, continue tapering benzo #Suicidal ideation/depression/PTSD/insomnia - presented with suicidal ideation and significant anxiety; persisting at time of admission. Patient reports stopped all home psychiatric medications several months ago. Psychiatry consulted continue to hold home medications, psychiatry recommendations appreciated regarding resuming home meds One-to-one ordered Safety tray ordered -resumed clonidine for HS, seroquel HS Lexapro 10 mg in the AM -psych ok to stop 1 to 1, will discontinue in AM #Nicotine use - vaping daily - nicotine patched ordered - encourage smoking cessation #Substance use - history of methamphetamine use, patient reports stopped approximately 3 months ago. UDS negative in ED. VTE ppx: SCDs, low risk and able to ambulate Dispo: PCU Admission and Anticipated Discharge Date Admission Date: March 09, 2025 Subjective Patient reports symptoms of withdrawal are controlled. Still with mild hallucinations Physical Exam Physical Exam: The patient is awake, alert and oriented 3 HEENT- EOMI, mucous membranes moist. Hearing grossly intact. Heart-normal S1 and S2. No murmurs, rubs or gallops. Lungs-clear bilaterally, no respiratory distress, no accessory muscle use. Abdomen-normal bowel sounds and soft. No ascites noted. Non-tender. Extremities- no clubbing, cyanosis, or edema. Rheumatologic-normal range of motion. Psychiatric-anxious affect. Results & Data Results & Data Vital Signs (Past 12 Hours) Vital Signs Temp Pulse Pulse Resp BP Pulse Ox O2 Del Method 03/11/25 19:10 36.9 C 81 131/86 95 Room Air 03/11/25 15:49 36.8 C 62 16 125/83 94 Room Air 03/11/25 14:18 71 03/11/25 11:57 36.7 C 73 16 126/84 96 Room Air 03/11/25 08:33 56 L PG Care Time/CCT Total # of Minutes Spent Total Time Spent with Patient: Total time spent is greater than 50% in coordination of care (as documented) at patient's floor/unit and/or counseling patient: Coding Level of Care Code 50692 SUB INP/OBS CARE 3/50MIN Diagnoses Alcohol withdrawal syndrome, with delirium F10.931 Complication of substance-induced condition: with delirium Suicidal ideations R45.851 Depression F32.A Depression Type: unspecified Post traumatic stress disorder (PTSD) F43.10 Nicotine use Z72.0 (1) Alcohol withdrawal Complication of substance-induced condition: with delirium Qualified Code(s): F10.931 - Alcohol use, unspecified with withdrawal delirium (3) Depression Depression Type: unspecified Qualified Code(s): F32.A - Depression, unspecified
[2025-03-11] MEDS: ONDANSETRON INJ 2 MG/ML 2 ML VIAL IV PRN (20:38)
[2025-03-11] MEDS: MELATONIN 3 MG TAB PO PRN (20:40)
[2025-03-11] MEDS: chlordiazePOXIDE HCl 25 MG CAP PO SCH (23:35)
[2025-03-12] MEDS: BUPRENORPHINE/NALOXONE 8/2 MG TAB SL SCH (13:10)
--- NOTE | 2025-03-12 13:17 | Hospitalist Progress Note ---
Date of Service March 12, 2025 Assessment & Plan (1) Alcohol withdrawal: (2) Suicidal ideations: (3) Depression: (4) Post traumatic stress disorder (PTSD): (5) Nicotine use: Plan Patient is a 35-year-old male past medical history PTSD, depression with suicidal ideation, substance use, chronic alcohol use. Patient presented due to thoughts of self-harm after stopping all home psychiatric medications for several months and for alcohol withdrawal/detox request. overall plan on lubrium taper, improving started on suboxone 8 TID and can increased dose as tolerated spoke with his suboxone clinics. need psych clearance prior to discharge long standing depression and question of ADHD, inattentive responded to lexapro 10mg in the past. #Alcohol withdrawal - on lubrium 25mg taper numerous withdrawal admissions in the past (does well with Ativan and Librium taper). - Received 1L NSS bolus in ED, continue fluid resuscitation with LR at 125 mL/hour x1L - AWSS active protocol with IV Ativan - received thiamine 500 Mg IV and folic acid 1 Mg IV in ED - ordered Thiamine IV 100mg and folic acid 1mg IV QAM - Multivitamin PO daily --withdrawal signs appear controlled, continue tapering benzo alcohol use disorder, drink 20-24 liquor per day relapse one weeks ago; most recent drink 03/09 morning #Suicidal ideation/depression/PTSD/insomnia - presented with suicidal ideation and significant anxiety; persisting at time of admission. Patient reports stopped all home psychiatric medications several months ago. Psychiatry consulted continue to hold home medications, psychiatry recommendations appreciated regarding resuming home meds One-to-one ordered Safety tray ordered -resumed clonidine for HS, seroquel HS Lexapro 10 mg in the AM -psych ok to stop 1 to 1, will discontinue in AM #Nicotine use - vaping daily - nicotine patched ordered - encourage smoking cessation #Substance use - history of methamphetamine use, patient reports stopped approximately 3 months ago. UDS negative in ED. called his suboxone clinics; confirmed about suboxone 24 TID started 8 today; and then increased. VTE ppx: SCDs, low risk and able to ambulate Dispo: PCU Admission and Anticipated Discharge Date Admission Date: March 09, 2025 Subjective he's getting chlordiaepoxide taper no worsening headache or tremor admitted for drinking 20-24 liquor daily was having depression, on lexapro 10mg with good effect he need psych clearance also was concerned about undertreated ADHD Review of Systems Review of Systems: Constitutional: No Weight Change, No Fever, No Chills, No Night Sweats, No Fatigue, No Malaise Cardiovascular: No Chest Pain, No SOB, No PND, No Dyspnea on Exertion, No Orthopnea, No Claudication, No Edema, No Palpitations Respiratory: No Cough, No Sputum, No Wheezing, No Smoke Exposure, No Dyspnea Gastrointestinal: No Nausea, No Vomiting, No Diarrhea, No Constipation, No Pain, No Heartburn, No Anorexia, No Dysphagia, No Hematochezia, No Melena, No Flatulence, No Jaundice Musculoskeletal: no back pain Skin: No Skin Lesions, No Pruritis, No Hair Changes, No Breast/Skin Changes, No Nipple Discharge Neuro: No Weakness, No Numbness, No Paresthesias, No Loss of Consciousness, No Syncope, + for tremor Psych: + for depression; inattentiveness. no hallucination; + for alcohol use + for Family hx of bipolar Heme/Lymph: No Bruising, No Bleeding, No Transfusions History, No Lymphadenopathy Endocrine: No Polyuria, No Polydipsia, No Temperature Intolerance Physical Exam Physical Exam: VITALS: Reviewed. WEIGHT/BMI reviewed. GEN: Healthy appearing, well-developed, NAD. PSYCH: cooperative; no sign of psychosis; no sign of hallucination -Head: NC/AT; -Nose: Normal nares. -Mouth and throat: MMM. Normal gums, muc ethan, palate,. Good dentition. NECK: Supple, with no masses. CV: RRR, no m/r/g. LUNGS: CTAB, no w/r/c. ABD: Soft, NT/ND, NBS, no masses or organomegaly. EXT: No clubbing, cyanosis, or edema. NEURO: AAox3; trace tremor; no asterix; no delayed in mentation Results & Data Results & Data Vital Signs (Past 12 Hours) Vital Signs Temp Pulse Pulse Resp BP Pulse Ox O2 Del Method 03/12/25 10:00 36.7 C 86 20 109/75 96 Room Air 03/12/25 08:00 58 L 03/12/25 07:34 36.7 C 59 L 18 105/63 95 Room Air 03/12/25 03:31 36.5 C 68 18 104/67 96 Room Air Laboratory Results Laboratory Results - last 72 hr 03/09/25 03/09/25 03/10/25 14:10 14:20 04:51 WBC 7.61 6.49 RBC 4.85 4.30 L Hgb 14.9 13.4 L Hct 41.8 L 37.9 L MCV 86.2 88.1 MCH 30.7 31.2 MCHC 35.6 35.4 RDW Std Deviation 40.0 40.9 RDW Coeff of Bryanna 12.7 12.6 Plt Count 281 205 MPV 9.7 10.0 Immature Gran % (Auto) 0.5 0.3 Neut % (Auto) 55.0 53.0 Lymph % (Auto) 37.6 38.1 Mccreary % (Auto) 5.1 5.7 Eos % (Auto) 0.9 2.0 Baso % (Auto) 0.9 0.9 Neut # (Auto) 4.18 3.44 Lymph # (Auto) 2.86 2.47 Mccreary # (Auto) 0.39 0.37 Eos # (Auto) 0.07 0.13 Baso # (Auto) 0.07 0.06 Immature Gran # (Auto) 0.04 0.02 Sodium 142 140 Potassium 3.7 3.9 Chloride 103 107 Carbon Dioxide 27 26 Anion Gap 12 H 7 BUN 11 13 Creatinine 0.89 0.87 Est Cr Clr Drug Dosing 128.4 131.3 eGFR 115.32 116.12 BUN/Creatinine Ratio 12.4 14.9 Glucose 119 H 96 Calcium 9.7 9.2 Magnesium 1.9 Total Bilirubin 0.4 0.7 AST 36 35 ALT 24 21 Alkaline Phosphatase 66 54 Total Protein 8.6 H 7.1 Albumin 4.7 4.1 Globulin 3.9 3.0 Albumin/Globulin Ratio 1.2 1.4 Vitamin B12 414 TSH 1.232 Urine Color Yellow Urine Appearance Clear Urine pH 7.0 Ur Specific [place] 1.010 Urine Protein Negative Urine Glucose (UA) Negative Urine Ketones Negative Urine Blood Trace-intact H Urine Nitrite Negative Urine Bilirubin Negative Urine Urobilinogen Negative Ur Leukocyte Esterase Negative Urine RBC 3-5 H Urine WBC 0-5 Ur Epithelial Cells 0-2 Urine Bacteria None Seen Urine Comment Salicylates < 3.0 L Urine Opiates Screen Neg Ur Methadone, Qual Neg Urine Fentanyl Screen Neg Acetaminophen < 3 L Urine Barbiturates Neg Ur Phencyclidine (PCP) Neg U Amphetamin/Meth Scrn Neg MDMA (Ecstasy) Screen Neg U Benzodiazepines Scrn Neg Ur Cocaine Metabolite Neg U Marijuana (THC) Screen Neg Ethyl Alcohol mg/dL 292.6 H SARS-CoV-2, RNA, NAAT NEGATIVE PG Care Time/CCT Total # of Minutes Spent Total Time Spent with Patient: Total time spent is greater than 50% in coordination of care (as documented) at patient's floor/unit and/or counseling patient: Coding Level of Care Code 46375 SUB INP/OBS CARE 2/35MIN Diagnoses Alcohol withdrawal syndrome, with delirium F10.930 Complication of substance-induced condition: uncomplicated Suicidal ideations R45.851 Depression F32.A Depression Type: unspecified Post traumatic stress disorder (PTSD) F43.10 Nicotine use Z72.0 Time Spent (min) 35 (1) Alcohol withdrawal Complication of substance-induced condition: uncomplicated Qualified Code(s): F10.930 - Alcohol use, unspecified with withdrawal, uncomplicated (3) Depression Depression Type: unspecified Qualified Code(s): F32.A - Depression, unspecified
[2025-03-12 20:01] VITALS: RESP 18
[2025-03-13 10:48] VITALS: BP 157/77; PULSE 71; TEMP 97.9; O2SAT 97
--- NOTE | 2025-03-13 14:33 | Discharge Summary ---
Discharge Summary Date of Service March 13, 2025 Principal Dx & Hospital Course #1 = Principal Diagnosis (1) Alcohol withdrawal: (2) Suicidal ideations: (3) Depression: (4) Post traumatic stress disorder (PTSD): (5) Nicotine use: Plan Patient is a 35-year-old male past medical history PTSD, depression with suicidal ideation, substance use, chronic alcohol use. Patient presented due to thoughts of self-harm after stopping all home psychiatric medications for several months and for alcohol withdrawal/detox request. overall plan he's denied any S/I or H/I ideation I spoke with psychiatry attending and Dr. George Borja cleared him for discharge. psych deferred a formal consultation. he's will be on lexapro 10mg for depression he's will f/u with outpatient alcohol rehab he's need to see psychiatry about titration of his lexapro dose to address his anxiety #Alcohol withdrawal, multiple admission for alcoho use disorder on lubrium 25mg taper numerous withdrawal admissions in the past (does well with Ativan and Librium taper). - Received 1L NSS bolus in ED, continue fluid resuscitation with LR at 125 mL/hour x1L - AWSS active protocol with IV Ativan - received thiamine 500 Mg IV and folic acid 1 Mg IV in ED - ordered Thiamine IV 100mg and folic acid 1mg IV QAM - Multivitamin PO daily --withdrawal signs appear controlled, continue tapering benzo alcohol use disorder, drink 20-24 liquor per day relapse one weeks ago; most recent drink 03/09 morning #Suicidal ideation/depression/PTSD/insomnia - presented with suicidal ideation and significant anxiety; persisting at time of admission. Patient reports stopped all home psychiatric medications several months ago. -spoke with psychiatry; Dr. Borja; patient denied further suicidal ideation once he's off alcohol per psychiatry; given he's denied S/I or H/I while he in the hospital, cleared for discharge patient will present himself to the ER for evaluation if S/I recurred -resumed clonidine for HS, seroquel HS Lexapro 10 mg in the AM #Nicotine use - vaping daily - nicotine patched ordered - encourage smoking cessation #Substance use - history of methamphetamine use patient stopped approximately 3 months ago. UDS negative in ED. called his suboxone clinics; confirmed about suboxone 24 TID started 8 today; and then increased. VTE ppx: SCDs, low risk and able to ambulate Dispo: PCU Admission HPI Per Admitting Provider Patient is a 35-year-old male past medical history PTSD, depression with suicidal ideation, substance use, chronic alcohol use. Patient presented due to thoughts of self-harm after stopping all home psychiatric medications for several months and for alcohol withdrawal/detox request. Patient seen at bedside. He is anxious and currently having thoughts of self- harm, "however knows how to answer that question". He stated he has been confused today, not feeling well, and with significant anxiety. He stated he stopped all of his home psych medications several months ago. Patient stated he did quit drinking alcohol however resumed approximately a week and a half ago. In the past he drank 35-40 standard drinks a day however with this relapse, he has been drinking approximately 25 standard beverages a day consisting of a mixture of beer, liquor, and wine. His last drink was this morning, EtOH level to 92.6 at time of admission. He stated with previous withdrawals he has done well with Ativan and Librium taper, he denies any history of seizures. He is feeling anxious, jittery, diaphoretic, dizzy at this time. He denies any chest pain or heart palpitations. He stated he uses nicotine products through vaping daily, nicotine patch ordered. He denies any illicit drug use, stopped methamphetamine approximately 3 months ago. He believes he has been overthinking things that happened resulting in significant anxiety today. Patient is agreeable to alcohol detox and psych consult/resuming previous medications. -- Hospital course he's was started on lubrium taper for alcohol withdrawal and maintain on thiamine,folic. his CIWA score is improving; he's denied any S/I or H/I as soon as he's became sober his was maintain on Seroquel qHS and clonidine qHS. his lexapro 10mg dose was resumed for his long standing depression. he's also concerned if he has ADHD but that will be addressed by his outpatient psychiatrist. on 03/13, he no longer feel tremor or diaphoresis. he is AAox3 he's was dc home with lexapro 10mg, clonidine 0.1mg qHS and protonix he was strongly recommended to avoid alcohol use, risk of , liver failure explained. Discharge Exam VITALS: Reviewed. WEIGHT/BMI reviewed. GEN: Healthy appearing, well-developed, NAD. PSYCH: . AOx3. Normal memory, mood, and affect. no pressure speech; no sign of psychosis HEENT -Head: NC/AT; -Eyes: PERRL, EOMI. No discharge or redness; -Mouth and throat: MMM. Normal gums, mucosa, palate,. Good dentition. NECK: Supple, with no masses. CV: RRR, no m/r/g. LUNGS: CTAB, no w/r/c. ABD: Soft, NT/ND, NBS, no masses or organomegaly. MSK: No deformities, Normal gait. EXT: No clubbing, cyanosis, or edema. NEURO: AAOx3; 5/5 strength; no asterixis; normal finger to nose Discharge Plan Discharge Items Patient Disposition: Home - Self-Care Reason For Visit: ALCOHOL WITHDRAWAL, SUICIDAL IDEATION Discharge Diagnosis: alcohol withdrawal. depression Condition on Discharge: Fair Activity: Resume your previous activity Lifting: Gradually increase as tolerated and No more than 10 pounds Lifting Comment: lift no more than 10 lbs in first 48-72 hours Exercise/Sports: Rest today Non-emergency contact: Primary Care Provider and Psychiatrist Call non-emergency contact if: your symptoms worsen and your rectal temperature is above 100.4 Follow-up/Referrals: Bri Cervantes MD [Primary Care Provider] - 03/19/25 10:20 am (Hospital follow up scheduled March 19 at 10:20) Diet: Regular and Low Fat Addtl Attending Provider Instructions: you will avoid alcohol (including koki, beer, liquor) you will make appointment to see outpaitent alcohol rehab Pending Studies at Discharge: Yes (repeat CMP, CBC in 4-5 days) Stand-Alone Forms: My [facility], Smoking Cessation Medications and DC Order Prescriptions: New multivitamin [Daily Multi-Vitamin] Tablet 1 tab PO DAILY 30 Days Qty: 30 0RF nicotine 7 mg/24 hr Patch 24 Hour 1 patch transdermal QAM 30 Days Qty: 30 0RF B-100 Complex 100 mg tablet extended release 1 tab PO DAILY 90 Days Qty: 90 0RF escitalopram oxalate [Lexapro] 10 mg tablet 10 mg PO DAILY 30 Days Qty: 30 0RF pantoprazole [Protonix] 40 mg tablet,delayed release (DR/EC) 40 mg PO HS 30 Days Qty: 30 0RF clonidine HCl 0.1 mg tablet 0.1 mg PO HS 14 Days Qty: 14 0RF Continued buprenorphine-naloxone 8-2 mg tablet, sublingual 2.5 tab SUBLINGUAL DAILY quetiapine 100 mg tablet 100 mg PO HS Qty: 15 0RF Held bupropion HCl 100 mg tablet sustained-release 12 hr 100 mg PO QAM Qty: 30 0RF Hold Instructions: Resume on 03/24/25. hold until you see your PCP and psychiatrist Discontinued pantoprazole 40 mg Tablet,Delayed Release (Dr/Ec) 40 mg PO QAM Qty: 30 0RF escitalopram oxalate 10 mg tablet 10 mg PO QAM Qty: 30 0RF Rx Instructions: take with 5 mg to equal 15 mg dose escitalopram oxalate 5 mg tablet 5 mg PO QAM Qty: 30 0RF Rx Instructions: take with 10 mg to equal 15 mg dose Discharge Orders: Discharge Order (Routine); Ordered 03/13/25 Ordered By: Marly Ha/Other Patient Handouts: Alcoholism Resources, Alcoholism: Getting Help, Alcohol Withdrawal: What to Expect Admission Data Admit Date/Time: 03/09/25 21:47 Attending Provider: Marly Browning Admit Provider: Carlos Herrera Primary Care Provider: Bri Cervantes Other Providers: Carlos Herrera Other Interventions: Discharge Summary Assessment (RN) Last Done: 03/13/25 13:40 Hospital Stay Data Consultations 03/09/25 20:10 ED Decision to Admit Stat 03/11/25 16:54 Consult Behavioral Health Liaison Routine Pending Results Patient Have Any Pending Studies at Discharge: Yes (repeat CMP, CBC in 4-5 days) Discharge Instructions Given to Patient (Per Discharging Provider) you will avoid alcohol (including koki, beer, liquor) you will make appointment to see outpaitent alcohol rehab Total Time Total Time Spent Total Time Spent (In Minutes): 35 minutes Coding Level of Care Code 32815 INP/OBS DISCH >30 MIN Diagnoses Alcohol withdrawal syndrome, with delirium F10.930 Complication of substance-induced condition: uncomplicated Suicidal ideations R45.851 Depression F32.A Depression Type: unspecified Post traumatic stress disorder (PTSD) F43.10 Nicotine use Z72.0 Time Spent (min) 35
== END 2025-03-13 15:51 | disposition home or self-care (01) | DRG 897 ==
LOC: ED 13:59 → EDINP 21:47 → SUATTDRO 21:47 → 2S 23:40

== ENCOUNTER 2025-06-29 17:10 | Inpatient (IN) ==
--- NOTE | 2025-06-29 17:43 | Emergency Department Note ---
Impression & Plan Alcohol withdrawal, Right lower quadrant abdominal pain, Nausea & vomiting ED Provider Note HISTORY OF PRESENT ILLNESS: Patient is a 35-year-old male presenting with alcohol withdrawal. Patient reports he drinks just over 1/5 of vodka daily and has been doing this for the last 2 weeks. He reports that he is a chronic alcoholic and has been recently relapsing in the last 2 months. He states that previous to this, he was sober for 4 months. He states that all of his previous detoxing has required hospital admission, because he has a history of withdrawal seizures and hallucinations. Patient reports his last drink was 6 hours ago. He states that he is started to become very tremulous and has started seeing "creatures" that come out of the ground. He states that these are his typical symptoms of withdrawal. He denies any other recreational drug use. He is having some right lower quadrant abdominal pain. He reports nausea and vomiting. Denies any fevers. Denies any dysuria or hematuria. ROS: as above PHYSICAL EXAM: Constitutional: Patient appears in no acute distress. Smells strongly of alcohol HENT: Head: Normocephalic and atraumatic. Eyes: EOMI, PERRL Mouth/Throat: Mucous membranes moist. Neck: Trachea midline. Neck supple. Cardiovascular: RRR, No murmurs, rubs or gallops. Intact distal pulses. Pulmonary/Chest: No respiratory distress. Breath sounds clear and equal bilaterally. No wheezes or rales. Abdominal: Abdomen soft, no rebound or guarding. RLQ TTP Musculoskeletal: No edema, tenderness or deformity noted. Skin: Warm and dry. No rash, erythema, pallor or cyanosis Psychiatric: Appropriate mood and affect for situation. Neurological: Alert and keenly responsive. CN II-XII grossly intact, moving all extremities equally and fully. MDM: - Vitals signs showed hypertension - History obtained via patient. History as above. - Chronic conditions affecting care: Alcohol abuse - Differential diagnoses include, but are not limited to: Aortic aneurysm; appendicitis; diverticulitis; alcohol withdrawal; electrolyte abnormality - Order placed for continuous cardiac monitoring. At this time, monitor showed rate of 78 bpm with normal sinus rhythm, per my interpretation. - External medical records reviewed. - EKG image interpreted by myself showed normal sinus rhythm. Rate 69 bpm. QT 404. No acute ischemic changes. - Laboratory workup interpreted by myself showed normal WBC; normal hemoglobin; normal PT/INR; slight hypokalemia (K 3.2); elevated AST (115); normal lipase; elevated alcohol (283.5) - CT abdomen/pelvis with IV contrast negative for acute pathology - Patient's alcohol withdrawal severity score on arrival was 5. He was hallucinating and was given 1 mg of IV Ativan. - Discussion was had with housing case manager about patient's case and need for admission - Hospitalist consulted for admission - Patient admitted to [facility] service for further evaluation and management. ASSESSMENT AND PLAN: Diagnosis: Right lower quadrant abdominal pain; alcohol withdrawal; nausea and vomiting Plan: Admit Past Med/Surg History Problem List (Updated 06/29/25 @ 20:16 by Shannen Duval MD) Nausea & vomiting (Acute) Right lower quadrant abdominal pain (Acute) Alcohol withdrawal (Acute) Anxiety (Acute) Depression (Acute) Alcohol abuse (Acute) Nicotine use Methamphetamine use Post traumatic stress disorder (PTSD) (Chronic) Depression (Acute) Elevated liver enzymes Major depressive disorder, recurrent episode (Acute) Enlarged liver (Acute) Seasonal allergies (Acute) Anxiety (Acute) Medical History Alcohol withdrawal Alcohol withdrawal Alcohol use disorder, severe, dependence Acute dehydration Heart palpitations Hypokalemia COVID-19 Transaminitis Acid reflux Tobacco abuse Homicidal ideation Depression with suicidal ideation Alcohol intoxication 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 Diplopia Anxiety and depression Depressive disorder Alcoholic hepatitis Lab test negative for COVID-19 virus No pertinent family history BRITTNY (generalized anxiety disorder) Left leg cellulitis Headache Dizziness Surgical History No pertinent past surgical history Family History Mother Other No significant family history Denies family history of Ovarian cancer Prostate cancer Myocardial infarction Breast cancer Colorectal cancer Hypertension Social History Smoking Status: Never smoker Tobacco Type: Cigarettes Second Hand Exposure: No; Do You Dip or Chew Tobacco: No; Hx Alcohol Use: Yes Alcohol type: hard liquor Hx Substance Use: No Preferred Language: Monegasque Communication Ability: Effective Visual Impairment: No Limitations Hearing Ability: Normal 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 Beliefs That Will Affect Care: None marital status: marital status details: Current Living Situation: Alone current occupational status: employed How many Children do You have: 1 Feels Safe at Home: Yes Childhood Exposure to Second-Hand Smoke: No Diet: regular Dental Care, Regularly: Yes Physical Activity Frequency: Daily Seatbelt Use: always Sunscreen Use: No Assistive Devices: None Allergies Allergies Allergy/AdvReac Type Severity Reaction Status Date / Time diphenhydramine AdvReac Severe "DON'T Verified 06/29/25 19:40 [From Benadryl] LIKE TO TAKE" Antihistamines - Alkylamine AdvReac Intermediate "Just Verified 06/29/25 19:40 Don't Feel Right When I Take Them" Antihistamines - Ethanolamine AdvReac Intermediate "Just Verified 06/29/25 19:40 Don't Feel Right When I Take Them" Antihistamines - AdvReac Intermediate "Just Verified 06/29/25 19:40 Ethylenediamine Don't Feel Right When I Take Them" Antihistamines - Piperazine AdvReac Intermediate "Just Verified 06/29/25 19:40 Don't Feel Right When I Take Them" Antihistamines - Piperidine AdvReac Intermediate "Just Verified 06/29/25 19:40 Don't Feel Right When I Take Them" buspirone [From BuSpar] AdvReac Intermediate Shaking/john Verified 06/29/25 19:40 mor Home Meds Home Medications Medication Instructions Recorded Confirmed buprenorphine 8 mg-naloxone 2 mg 1 tab sublingual TID 05/27/24 06/29/25 sublingual tablet fexofenadine 180 mg tablet 180 mg PO DAILY PRN Allergy 06/29/25 06/29/25 Symptoms Previous Rx's Medication Instructions Recorded folic acid 1 mg tablet 1 mg PO QAM 90 days #90 tabs 06/03/25 quetiapine 50 mg tablet 50 mg PO HS 30 days #30 tabs 06/03/25 thiamine HCl (vitamin B1) 100 mg 100 mg PO QAM 90 days #90 tabs 06/03/25 tablet Results & Data (ED) Vital Signs Vital Signs - 24 hr 06/29/25 17:15 06/29/25 17:15 06/29/25 17:42 Temperature 36.8 C Temperature Source Temporal Artery Scan Pulse Rate 87 76 Pulse Rate [Right Finger] Pulse Rate from SpO2 Sensor Respiratory Rate 20 16 Respiratory Effort / Characteristics Non-Labored Respiratory Depth Normal Blood Pressure 141/104 H 133/99 Blood Pressure [Right Arm] Blood Pressure Mean 116 108 Blood Pressure Mean [Right Arm] Pulse Oximetry 97 97 Oxygen Delivery Method Room Air Room Air Sepsis Recent Fever Within 48 Hours No Sepsis New/Unexplained Change in Mental Status No Sepsis Action Taken by Nursing No Action Required 06/29/25 17:42 06/29/25 17:43 06/29/25 17:57 Temperature Temperature Source Pulse Rate 77 76 74 Pulse Rate [Right Finger] Pulse Rate from SpO2 Sensor 77 Respiratory Rate 28 H 17 Respiratory Effort / Characteristics Respiratory Depth Blood Pressure Blood Pressure [Right Arm] Blood Pressure Mean Blood Pressure Mean [Right Arm] Pulse Oximetry 96 Oxygen Delivery Method Sepsis Recent Fever Within 48 Hours Sepsis New/Unexplained Change in Mental Status Sepsis Action Taken by Nursing 06/29/25 18:00 06/29/25 18:06 06/29/25 18:12 Temperature Temperature Source Pulse Rate 72 69 Pulse Rate [Right Finger] Pulse Rate from SpO2 Sensor 72 70 Respiratory Rate 18 18 Respiratory Effort / Characteristics Respiratory Depth Blood Pressure 143/104 H Blood Pressure [Right Arm] Blood Pressure Mean 117 Blood Pressure Mean [Right Arm] Pulse Oximetry 96 95 Oxygen Delivery Method Sepsis Recent Fever Within 48 Hours Sepsis New/Unexplained Change in Mental Status Sepsis Action Taken by Nursing 06/29/25 18:15 06/29/25 18:15 06/29/25 18:18 Temperature 36.8 C Temperature Source Oral Pulse Rate 88 Pulse Rate [Right Finger] 78 Pulse Rate from SpO2 Sensor 91 H Respiratory Rate 20 16 Respiratory Effort / Characteristics Non-Labored Spontaneous Respiratory Depth Normal Blood Pressure 135/98 Blood Pressure [Right Arm] 135/98 Blood Pressure Mean 102 Blood Pressure Mean [Right Arm] 110 Pulse Oximetry 90 98 Oxygen Delivery Method Room Air Sepsis Recent Fever Within 48 Hours Sepsis New/Unexplained Change in Mental Status Sepsis Action Taken by Nursing 06/29/25 18:21 06/29/25 18:30 06/29/25 18:30 Temperature Temperature Source Pulse Rate 82 Pulse Rate [Right Finger] Pulse Rate from SpO2 Sensor 80 Respiratory Rate 22 Respiratory Effort / Characteristics Respiratory Depth Blood Pressure 129/97 129/97 Blood Pressure [Right Arm] Blood Pressure Mean 108 108 Blood Pressure Mean [Right Arm] Pulse Oximetry 98 Oxygen Delivery Method Sepsis Recent Fever Within 48 Hours Sepsis New/Unexplained Change in Mental Status Sepsis Action Taken by Nursing 06/29/25 18:30 06/29/25 18:30 06/29/25 18:30 Temperature Temperature Source Pulse Rate Pulse Rate [Right Finger] Pulse Rate from SpO2 Sensor Respiratory Rate Respiratory Effort / Characteristics Respiratory Depth Blood Pressure 129/97 129/97 129/97 Blood Pressure [Right Arm] Blood Pressure Mean 108 108 108 Blood Pressure Mean [Right Arm] Pulse Oximetry Oxygen Delivery Method Sepsis Recent Fever Within 48 Hours Sepsis New/Unexplained Change in Mental Status Sepsis Action Taken by Nursing 06/29/25 18:30 06/29/25 18:48 06/29/25 19:12 Temperature Temperature Source Pulse Rate 70 67 76 Pulse Rate [Right Finger] Pulse Rate from SpO2 Sensor 70 66 Respiratory Rate 11 L 11 L 18 Respiratory Effort / Characteristics Respiratory Depth Blood Pressure 129/97 Blood Pressure [Right Arm] Blood Pressure Mean 107 Blood Pressure Mean [Right Arm] Pulse Oximetry 95 94 Oxygen Delivery Method Sepsis Recent Fever Within 48 Hours Sepsis New/Unexplained Change in Mental Status Sepsis Action Taken by Nursing Laboratory Data 06/29/25 17:32 06/29/25 17:32 Lab Results 06/29/25 06/29/25 Range/Units 17:32 17:55 WBC 7.55 (4.8-10.8) K/ul RBC 4.89 (4.70-6.10) M/uL Hgb 14.9 (14.0-18.0) g/dl Hct 42.2 (42.0-52.0) % MCV 86.3 (80.0-100.0) fL MCH 30.5 (25.0-34.0) pg MCHC 35.3 (32.0-36.0) g/dL RDW Std Deviation 41.5 (36.4-46.3) fL RDW Coeff of Bryanna 13.2 (11.5-14.5) % Plt Count 161 (130-400) K/uL MPV 9.8 (9.4-12.4) fL Immature Gran % (Auto) 0.3 % Neut % (Auto) 60.7 % Lymph % (Auto) 28.9 % [place] % (Auto) 7.5 % Eos % (Auto) 1.5 % Baso % (Auto) 1.1 % Neut # (Auto) 4.59 (1.40-6.50) K/uL Lymph # (Auto) 2.18 (1.20-3.40) K/uL [place] # (Auto) 0.57 (0.11-0.59) K/uL Eos # (Auto) 0.11 (0.00-0.50) K/uL Baso # (Auto) 0.08 (0.00-0.20) K/uL Immature Gran # (Auto) 0.02 (0.01-0.20) K/uL PT 10.6 (9.0-12.0) Seconds INR 1.0 (0.9-1.1) Sodium 141 (136-145) mmol/L Potassium 3.2 L (3.5-5.1) mmol/L Chloride 99 (98-107) mmol/L Carbon Dioxide 32 (21-32) mmol/L Anion Gap 10 (3-11) BUN 13 (6-23) mg/dl Creatinine 1.06 (0.6-1.4) mg/dl Est Cr Clr Drug Dosing 111.0 ml/min eGFR 94.44 BUN/Creatinine Ratio 12.3 (10-20) Glucose 113 H (70-99(Fasting)) mg/dl Calcium 9.3 (8.6-10.3) mg/dl Total Bilirubin 0.8 (0.2-1.0) mg/dl AST 115 H (13-39) U/L ALT 45 (7-52) U/L Alkaline Phosphatase 90 (34-104) U/L Total Protein 8.2 (6.0-8.3) gm/dl Albumin 4.3 (3.4-5.0) gm/dl Globulin 3.9 (2.5-4.0) gm/dl Albumin/Globulin Ratio 1.1 (0.9-2) Lipase 60 (11-82) U/L Ethyl Alcohol mg/dL 283.5 H (<10.0) mg/dl Administered Medications Discontinued Medications Ioversol (Optiray 320 100ml) 93 ml IV ONCE ONE Stop: 06/29/25 19:02 Last Admin: 06/29/25 19:02 Dose: 93 ml Documented By: WANDA Lorazepam (Lorazepam 2 Mg/1 Ml Vial) 1 mg IV ONE PRN; Protocol PRN Reason: EtoH Withdrawal AWSS 6-10 Last Admin: 06/29/25 18:24 Dose: 1 mg Documented By: NRB Imaging Data Radiologist's Impression: Abdomen/Pelvis CT 06/29/25 17:38 Clinical History: Right lower quadrant pain Technique: Axial computed tomography images were obtained of the abdomen and pelvis after the administration of intravenous contrast. Comparison is made to the prior CT dated 10/22/2022. Findings: There is diffuse fatty infiltration of the liver. No liver mass lesion is seen. The portal vein is patent. The gallbladder appears unremarkable. No bile duct dilatation is noted. The spleen is of normal size. No focal splenic lesion is evident. The pancreas appears normal with no sign of acute or chronic pancreatitis and no mass lesion noted. The pancreatic duct is of normal caliber. The adrenal glands appear unremarkable. No definite renal or proximal ureteral calculi are seen on this contrast-enhanced study. There is no hydronephrosis or perinephric stranding. No renal mass lesion is identified. The aorta is of normal caliber. No abdominal adenopathy is seen. The stomach appears normal. There is no sign of small bowel obstruction. The colon appears unremarkable. The appendix appears normal also. No free intraperitoneal fluid or air is identified. No distal ureteral or bladder calculi are seen. No bladder mass lesion is evident. The iliac arteries are of normal caliber. No pelvic adenopathy is noted. There is a calcified granuloma in the left lower lobe. There is grade 1 anterolisthesis at L5-S1 due to L5 pars defects Impression: 1. Fatty infiltration of the liver 2. No sign of appendicitis Electronically signed by Marco A Berumen 06-29-2025 7:23 PM Discharge Plan Visit Data Chief Complaint: Alcohol Withdrawal Stated Complaint: ETOH WITHDRAWL ED Provider: Shannen Duval Discharge Problem: Alcohol withdrawal, Right lower quadrant abdominal pain, Nausea & vomiting Condition: Fair Forms Stand Alone Forms: My [facility] [employer], Suicide Prevention Resources Prescriptions Prescriptions: No Action buprenorphine-naloxone 8-2 mg tablet, sublingual 1 tab SUBLINGUAL TID quetiapine 50 mg tablet 50 mg PO HS 30 Days Qty: 30 0RF thiamine HCl (vitamin B1) 100 mg Tablet 100 mg PO QAM 90 Days Qty: 90 0RF folic acid 1 mg Tablet 1 mg PO QAM 90 Days Qty: 90 0RF fexofenadine [Anuradha] 180 mg Tablet 180 mg PO DAILY PRN (Reason: Allergy Symptoms) Referrals Referrals: PCP,NO [Primary Care Provider] -
[2025-06-29 17:54] LABS: Hematocrit (blood only) 42.2 % (42.0-52.0); Hemoglobin 14.9 g/dl (14.0-18.0); Immature Granulocytes # (auto) 0.02 K/uL (0.01-0.20); Immature Granulocytes % (auto) 0.3 %; Mean Corpuscular Hemoglobin 30.5 pg (25.0-34.0); Mean Corpuscular Volume 86.3 fL (80.0-100.0); Platelet Count 161 K/uL (130-400); RDW Standard Deviation 41.5 fL (36.4-46.3); Red Blood Count 4.89 M/uL (4.70-6.10); White Blood Count 7.55 K/ul (4.8-10.8)
[2025-06-29 18:11] LABS: Alanine Aminotransferase 45.0 U/L (7-52); Albumin Globulin Ratio 1.1 (0.9-2); Alkaline Phosphatase 90.0 U/L (34-104); Anion Gap 10.0 (3-11); Bilirubin,Total 0.8 mg/dl (0.2-1.0); Blood Urea Nitrogen 13.0 mg/dl (6-23); Calcium 9.3 mg/dl (8.6-10.3); Carbon Dioxide 32.0 mmol/L (21-32); Chloride 99.0 mmol/L (98-107); Creatinine Clr Calc Pharmacy 111.0 ml/min; Globulin 3.9 gm/dl (2.5-4.0); Glucose 113.0 mg/dl (70-99(Fasting)); Lipase 60.0 U/L (11-82); Potassium 3.2 mmol/L (3.5-5.1); Sodium 141.0 mmol/L (136-145); Total Protein 8.2 gm/dl (6.0-8.3)
[2025-06-29 18:19] LABS: INR 1.0 (0.9-1.1); Prothrombin Time 10.6 Seconds (9.0-12.0)
[2025-06-29] MEDS: OPTIRAY 320 100ml IV ONE (19:02)
--- NOTE | 2025-06-29 19:24 | CT Scan Report ---
Clinical History: Right lower quadrant pain Technique: Axial computed tomography images were obtained of the abdomen and pelvis after the administration of intravenous contrast. Comparison is made to the prior CT dated 10/22/2022. Findings: There is diffuse fatty infiltration of the liver. No liver mass lesion is seen. The portal vein is patent. The gallbladder appears unremarkable. No bile duct dilatation is noted. The spleen is of normal size. No focal splenic lesion is evident. The pancreas appears normal with no sign of acute or chronic pancreatitis and no mass lesion noted. The pancreatic duct is of normal caliber. The adrenal glands appear unremarkable. No definite renal or proximal ureteral calculi are seen on this contrast-enhanced study. There is no hydronephrosis or perinephric stranding. No renal mass lesion is identified. The aorta is of normal caliber. No abdominal adenopathy is seen. The stomach appears normal. There is no sign of small bowel obstruction. The colon appears unremarkable. The appendix appears normal also. No free intraperitoneal fluid or air is identified. No distal ureteral or bladder calculi are seen. No bladder mass lesion is evident. The iliac arteries are of normal caliber. No pelvic adenopathy is noted. There is a calcified granuloma in the left lower lobe. There is grade 1 anterolisthesis at L5-S1 due to L5 pars defects Impression: 1. Fatty infiltration of the liver 2. No sign of appendicitis Electronically signed by Marco A Berumen 06-29-2025 7:23 PM
--- NOTE | 2025-06-29 20:02 | History & Physical Report ---
Date of Service June 29, 2025 Assessment & Plan (1) Alcohol abuse: (2) Depression: (3) Anxiety: (4) Alcohol withdrawal: Plan #Alcohol abuse/alcohol withdrawalcontinue thiamine and folate. Alcohol withdrawal protocolhe notes that he has done well with Ativan/Librium before therefore we will utilize that again. Fortunately right now symptoms appear fairly mild. Follow closely. Escalate if needed. #Anxiety/depressioncontinue home medications #mild hypokalemiaregular diet DVT prophylaxis with ambulation, escalate pharmacologic if the withdrawal becomes worse or he becomes less mobile. History of Present Illness Chief Complaint: Alcohol withdrawal Primary Care Provider: NO PCP patient is a very pleasant 35-year-old male known to me from prior admissionshe is coming in with early signs of alcohol withdrawal. He would like to quit drinking he has just had a lot of struggles. This time he is planning on a sobriety plan where his brother will be helping act as a mentor, and he will get much more involved with his yazidism. He feels this is an approach that hopefully will help him. He notes that his most recent struggles had to do with his really not doing well with rehab, as well as a nonproductive relationship with a woman who had similar struggles. Allergies Allergy/AdvReac Type Severity Reaction Status Date / Time diphenhydramine AdvReac Severe "DON'T Verified 06/29/25 19:40 [From Benadryl] LIKE TO TAKE" Antihistamines - Alkylamine AdvReac Intermediate "Just Verified 06/29/25 19:40 Don't Feel Right When I Take Them" Antihistamines - Ethanolamine AdvReac Intermediate "Just Verified 06/29/25 19:40 Don't Feel Right When I Take Them" Antihistamines - AdvReac Intermediate "Just Verified 06/29/25 19:40 Ethylenediamine Don't Feel Right When I Take Them" Antihistamines - Piperazine AdvReac Intermediate "Just Verified 06/29/25 19:40 Don't Feel Right When I Take Them" Antihistamines - Piperidine AdvReac Intermediate "Just Verified 06/29/25 19:40 Don't Feel Right When I Take Them" buspirone [From BuSpar] AdvReac Intermediate Shaking/john Verified 06/29/25 19:40 mor Home Medications Medication Instructions Recorded Confirmed Type buprenorphine 8 mg-naloxone 2 mg 1 tab sublingual TID 05/27/24 06/29/25 History sublingual tablet folic acid 1 mg tablet 1 mg PO QAM 90 days #90 tabs 06/03/25 06/29/25 Rx quetiapine 50 mg tablet 50 mg PO HS 30 days #30 tabs 06/03/25 06/29/25 Rx thiamine HCl (vitamin B1) 100 mg 100 mg PO QAM 90 days #90 tabs 06/03/25 06/29/25 Rx tablet fexofenadine 180 mg tablet 180 mg PO DAILY PRN Allergy 06/29/25 06/29/25 History Symptoms Past Med/Surg History Problem List Anxiety (Acute) Depression (Acute) Alcohol abuse (Acute) Nicotine use Methamphetamine use Post traumatic stress disorder (PTSD) (Chronic) Depression (Acute) Elevated liver enzymes Major depressive disorder, recurrent episode (Acute) Enlarged liver (Acute) Seasonal allergies (Acute) Anxiety (Acute) Medical History Alcohol withdrawal Alcohol withdrawal Alcohol use disorder, severe, dependence Acute dehydration Heart palpitations Hypokalemia COVID-19 Transaminitis Acid reflux Tobacco abuse Homicidal ideation Depression with suicidal ideation Alcohol intoxication 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 Diplopia Anxiety and depression Depressive disorder Alcoholic hepatitis Lab test negative for COVID-19 virus No pertinent family history BRITTNY (generalized anxiety disorder) Left leg cellulitis Headache Dizziness Surgical History No pertinent past surgical history Family History Mother Other No significant family history Denies family history of Ovarian cancer Prostate cancer Myocardial infarction Breast cancer Colorectal cancer Hypertension Social History Smoking Status: Never smoker Tobacco Type: Cigarettes Second Hand Exposure: No; Do You Dip or Chew Tobacco: No; Hx Alcohol Use: Yes Alcohol type: hard liquor Hx Substance Use: No Preferred Language: Hungarian Communication Ability: Effective Visual Impairment: No Limitations Hearing Ability: Normal Fire Tender Required: No Beliefs That Will Affect Care: None marital status: marital status details: Current Living Situation: Alone current occupational status: employed How many Children do You have: 1 Feels Safe at Home: Yes Childhood Exposure to Second-Hand Smoke: No Diet: regular Dental Care, Regularly: Yes Physical Activity Frequency: Daily Seatbelt Use: always Sunscreen Use: No Assistive Devices: None Review of Systems Review of Systems: All systems reviewed & are unremarkable except as noted in HPI & below Physical Exam Physical Exam: General he is awake alert oriented pleasant somewhat anxious and a little bit tremulous. HEENT normocephalic atraumatic mucous membranes moist. Cardio is regular rate. Breathing unlabored no accessory muscle use good effort. Skin without rashes pallor or icterus. Mildly tremulous. No focal neurodeficits. Mentation is intact. Labs and diagnostics noted. Results & Data Results & Data Vital Signs (Past 12 Hours) Vital Signs Temp Pulse Pulse Resp BP BP Pulse Ox 06/29/25 19:12 76 18 129/97 06/29/25 18:48 67 11 L 94 06/29/25 18:30 70 11 L 95 06/29/25 18:30 129/97 06/29/25 18:30 129/97 06/29/25 18:30 129/97 06/29/25 18:30 129/97 06/29/25 18:30 129/97 06/29/25 18:21 82 22 98 06/29/25 18:18 98.2 F 78 16 135/98 98 06/29/25 18:15 135/98 06/29/25 18:15 88 20 90 06/29/25 18:12 69 18 95 06/29/25 18:06 72 18 96 06/29/25 18:00 143/104 H 06/29/25 17:57 74 17 06/29/25 17:43 76 06/29/25 17:42 77 28 H 96 06/29/25 17:42 133/99 06/29/25 17:15 76 16 97 06/29/25 17:15 98.2 F 87 20 141/104 H 97 O2 Del Method 06/29/25 19:12 06/29/25 18:48 06/29/25 18:30 06/29/25 18:30 06/29/25 18:30 06/29/25 18:30 06/29/25 18:30 06/29/25 18:30 06/29/25 18:21 06/29/25 18:18 Room Air 06/29/25 18:15 06/29/25 18:15 06/29/25 18:12 06/29/25 18:06 06/29/25 18:00 06/29/25 17:57 06/29/25 17:43 06/29/25 17:42 06/29/25 17:42 06/29/25 17:15 Room Air 06/29/25 17:15 Room Air Code Status & VTE Plan VTE Prophylaxis Plan VTE Prophylaxis will be ordered: No Reason for no VTE drug order: Treatment not indicated PG Care Time/CCT Total # of Minutes Spent Total Time Spent with Patient: Total time spent is greater than 50% in coordination of care (as documented) at patient's floor/unit and/or counseling patient: Coding Level of Care Code 84192 INT INP/OBS CARE 3/75MIN Diagnoses Alcohol abuse F10.10 Depression F32.A Depression Type: unspecified Anxiety F41.9 Alcohol withdrawal F10.939 Complication of substance-induced condition: with unspecified complication (2) Depression Depression Type: unspecified Qualified Code(s): F32.A - Depression, unspecif ied (4) Alcohol withdrawal Complication of substance-induced condition: with unspecified complication Qualified Code(s): F10.939 - Alcohol use, unspecified with withdrawal, unspecified
[2025-06-29] MEDS ORDERED: chlordiazePOXIDE ALCOHOL WITHDRAWL 50MG PO STA (22:09)
[2025-06-29] MEDS ORDERED: POLYETHYLENE (MIRALAX) 17 GM PACK PO PRN (22:09)
[2025-06-29] MEDS ORDERED: ALUMINUM/MAGNESIUM SUSP 30 ML UDC PO PRN (22:09)
[2025-06-29] MEDS ORDERED: ACETAMINOPHEN 325 MG TAB PO PRN (22:09)
[2025-06-29] MEDS ORDERED: Ativan PO Alcohol Withdrawal--Active Protocol PO PRN (22:09)
[2025-06-29] MEDS ORDERED: LORazepam 1 MG TAB PO PRN (22:09)
[2025-06-29] MEDS ORDERED: MAGNESIUM HYDROXIDE SUSP 30 ML UDC PO PRN (22:09)
[2025-06-30] MEDS: ONDANSETRON INJ 2 MG/ML 2 ML VIAL IV PRN (00:28)
[2025-06-30] MEDS: BUPRENORPHINE/NALOXONE 8/2 MG TAB SL SCH (00:28)
[2025-06-30] MEDS: LORazepam 1 MG TAB PO PRN ×2 (03:25→07:51)
[2025-06-30] MEDS: FOLIC ACID 1 MG TAB PO SCH (08:21)
[2025-06-30] MEDS: THIAMINE HCL 100 MG TAB PO SCH (08:21)
--- NOTE | 2025-06-30 08:35 | Hospitalist Progress Note ---
"Date of Service June 30, 2025 Assessment & Plan (1) Alcohol withdrawal: (2) Alcohol abuse: (3) Depression: (4) Anxiety: Plan 35-year-old male with past medical history of alcohol use disorder, alcohol withdrawal seizures, depression, anxiety, PTSD, methamphetamine use disorder, tobacco use disorder. He presented to the ED with early onset of alcohol withdrawal symptoms. He drinks 1/5 of vodka daily and has been doing this for the last 2 weeks. Patient reports he has been recently relapsing in the last 2 months he was admitted to [facility] in May for alcohol withdrawal. Prior to coming to the ED, he started becoming very tremulous, having visual hallucinations, nausea and vomiting. Alcohol level 283.5 on admission. He was admitted to the hospital for alcohol withdrawal with history of alcohol withdrawal seizures. #Alcohol withdrawal | Alcohol use disorder - Alcohol withdrawal protocol with Ativan/Librium as he notes that he has done well with this regimen previously - Continue thiamine, folate, multivitamin - Zofran PRN nausea - Seizure precautions - CT A/P obtained d/t RLQ pain - noted fatty infiltration of the liver but no signs of appendicitis. AST elevated at 115, LFTs otherwise WNL - Fortunately right now symptoms appear fairly mild and he reports symptomatic improvement. Follow closely. Escalate if needed #Mild hypokalemia - Continue regular diet - Will trend with AM labs #Anxiety/depression continue home medications DVT PPx: ambulation - escalate to pharmacologic if the withdrawal becomes worse or he becomes less mobile. Dispo: Continued inpatient stay Admission and Anticipated Discharge Date Admission Date: June 29, 2025 Supervising Physician Co-Signing Physician Notes MITA Supervision Note: I did not personally see or examine the patient today, but I verified all abel points of MITA Newman's assessment and plan with the following exceptions/additions: Could consider pharmacologic treatment long-term for alcohol use disorder. He is on Suboxone for history of opioid use disorder so could not use naltrexone. Could consider acamprosate, disulfiram, or topiramate Subjective Patient seen and evaluated at bedside. He is very pleasant and respectful. He continues to have a mild tremor and reports anxiety and visual and auditory hallucinations. He notes that he feels better compared to earlier this morning. His speech remains slightly disorganized at this time. He voices desire for sobriety. He denies any SI or HI. We discussed inpatient rehab as he has done before but he declines at this time. I offered to have the behavioral health team meet with him but he declines at this time. He reports his plan is to have additional support from his brother. He states that his family is supportive of his sobriety and neither his family nor his friends drink alcohol or use illicit drugs. He denies any additional complaints or concerns at this time. Review of Systems Psychiatric: + anxiety, + auditory hallucinations and + visual hallucinations Physical Exam Physical Exam: General: No acute distress, nondiaphoretic, well-developed, well-nourished. Mild tremors present. Mildly disorganized speech. Skin: Warm, dry. No rashes or peripheral edema noted. Cardiac: Regular rate and rhythm without murmurs gallops or rubs. Pulm: Clear to auscultation bilaterally without wheezes, rales or rhonchi. Normal respiratory effort. 96% on room air. Abdominal: Soft, nontender, nondistended. Bowel sounds present. Neuro: A&O x3. No focal neurological deficits. Results & Data Results & Data Vital Signs (Past 12 Hours) Vital Signs Temp Pulse Pulse Resp BP BP Pulse Ox 06/30/25 07:44 98.1 F 99 H 18 134/96 97 06/30/25 07:15 98.1 F 97 H 20 126/84 97 06/30/25 00:25 98.8 F 76 18 126/87 98 06/30/25 00:22 98.8 F 76 16 126/87 98 06/29/25 22:00 106/74 06/29/25 22:00 106/74 06/29/25 22:00 67 14 06/29/25 21:48 66 12 06/29/25 21:46 68 06/29/25 21:30 67 13 06/29/25 21:30 107/76 06/29/25 21:30 107/76 06/29/25 21:30 107/76 06/29/25 21:12 71 13 06/29/25 21:00 71 15 06/29/25 21:00 115/83 06/29/25 21:00 115/83 06/29/25 21:00 115/83 06/29/25 21:00 115/83 06/29/25 20:57 71 16 06/29/25 20:45 71 11 L O2 Del Method 06/30/25 07:44 Room Air 06/30/25 07:15 Room Air 06/30/25 00:25 Room Air 06/30/25 00:22 Room Air 06/29/25 22:00 06/29/25 22:00 06/29/25 22:00 06/29/25 21:48 06/29/25 21:46 06/29/25 21:30 06/29/25 21:30 06/29/25 21:30 06/29/25 21:30 06/29/25 21:12 06/29/25 21:00 06/29/25 21:00 06/29/25 21:00 06/29/25 21:00 06/29/25 21:00 06/29/25 20:57 06/29/25 20:45 PG Care Time/CCT Total # of Minutes Spent Total Time Spent with Patient: Total time spent is greater than 50% in coordination of care (as documented) at patient's floor/unit and/or counseling patient: Coding Level of Care Code 37022 SUB INP/OBS CARE 2/35MIN Diagnoses Alcohol withdrawal F10.939 Complication of substance-induced condition: with unspecified complication Alcohol abuse F10.10 Depression F32.A Depression Type: unspecified Anxiety F41.9 (1) Alcohol withdrawal Complication of substance-induced condition: with unspecified complication Qualified Code(s): F10.939 - Alcohol use, unspecified with withdrawal, unspecified (3) Depression Depression Type: unspecified Qualified Code(s): F32.A - Depression, unspecified"
[2025-06-30] MEDS: MULTIVITAMIN TAB PO SCH (09:34)
--- NOTE | 2025-06-30 09:44 | Electrocardiogram Report ---
Test Reason : Blood Pressure : */* mmHG Vent. Rate : 69 BPM Atrial Rate : 69 BPM P-R Int : 190 ms QRS Dur : 106 ms QT Int : 404 ms P-R-T Axes : 31 25 52 degrees QTcB Int : 432 ms Normal sinus rhythm Normal ECG When compared with ECG of 31-May-2025 14:19, No significant change was found Confirmed by Shayne Colón ([id number]) on 06/30/2025 9:44:03 AM Referred By: REFERRED SELF Confirmed By: Shayne Colón
[2025-07-01 07:49] LABS: Hematocrit (blood only) 38.0 % (42.0-52.0); Hemoglobin 13.4 g/dl (14.0-18.0); Mean Corpuscular Hemoglobin 30.9 pg (25.0-34.0); Mean Corpuscular Volume 87.6 fL (80.0-100.0); Platelet Count 122 K/uL (130-400); RDW Standard Deviation 42.4 fL (36.4-46.3); Red Blood Count 4.34 M/uL (4.70-6.10); White Blood Count 5.22 K/ul (4.8-10.8)
[2025-07-01 08:11] LABS: Alanine Aminotransferase 62 U/L (7-52); Albumin Globulin Ratio 1.2 (0.9-2); Alkaline Phosphatase 84 U/L (34-104); Anion Gap 5 (3-11); Bilirubin,Total 1.0 mg/dl (0.2-1.0); Blood Urea Nitrogen 10 mg/dl (6-23); Calcium 8.8 mg/dl (8.6-10.3); Carbon Dioxide 30 mmol/L (21-32); Chloride 103 mmol/L (98-107); Creatinine Clr Calc Pharmacy 109.9 ml/min; Globulin 3.3 gm/dl (2.5-4.0); Glucose 108 mg/dl (70-99(Fasting)); Sodium 138 mmol/L (136-145); Total Protein 7.2 gm/dl (6.0-8.3)
--- NOTE | 2025-07-01 08:42 | Hospitalist Progress Note ---
"Date of Service July 01, 2025 Assessment & Plan (1) Alcohol withdrawal: (2) Alcohol abuse: (3) Depression: (4) Anxiety: Plan 35-year-old male with past medical history of alcohol use disorder, alcohol withdrawal seizures, depression, anxiety, PTSD, methamphetamine use disorder, tobacco use disorder. He presented to the ED with early onset of alcohol withdrawal symptoms. He drinks 1/5 of vodka daily and has been doing this for the last 2 weeks. Patient reports he has been recently relapsing in the last 2 months he was admitted to [facility] in May for alcohol withdrawal. Prior to coming to the ED, he started becoming very tremulous, having visual hallucinations, nausea and vomiting. Alcohol level 283.5 on admission. He was admitted to the hospital for alcohol withdrawal with history of alcohol withdrawal seizures. #Alcohol withdrawal | Alcohol use disorder - Alcohol withdrawal protocol with Ativan/Librium as he notes that he has done well with this regimen previously - Continue thiamine, folate, multivitamin - Zofran PRN nausea - Seizure precautions - CT A/P obtained d/t RLQ pain - noted fatty infiltration of the liver but no signs of appendicitis. AST elevated at 115, LFTs otherwise WNL - Fortunately right now symptoms appear fairly mild and he reports symptomatic improvement. - Consider d/c tomorrow morning if patient's symptoms remain well controlled #Mild hypokalemia - Continue regular diet - Will trend with AM labs #Anxiety/depression continue home medications DVT PPx: ambulation - escalate to pharmacologic if the withdrawal becomes worse or he becomes less mobile. Dispo: Continued inpatient stay Admission and Anticipated Discharge Date Admission Date: June 29, 2025 Supervising Physician Co-Signing Physician Notes I personally examined the patient and verified all abel points of history and exam, discussed case, and agree with decision making with Dr Rockwell feeling better overall. No further hallucinations through the rest of the day. Would like to get out tomorrow early if he can as long as he is doing well. Vitals noted, in general he is awake and alert pleasant no distress. HEENT normocephalic atraumatic mucous membranes moist. Breathing unlabored no accessory muscle use good effort. Skin without rashes pallor or icterus. Neuro without focal deficits. Alcohol abuse/withdrawalcontinue symptom triggered care. Appears to be improving. Hopefully home tomorrow morning. Subjective Patient is seen resting comfortably this AM. Patient does endorse slight hallucinations this AM. He als does report that he has had many hospitalizations for mental health and alcohol withdrawal. Patient is very cognizant of his anxiety and stress and how it pushes him to drink, and when he felt like he was beginning to lose control he got his brother to help him get to the hospital. Patient feels that he is close to his baseline and denies chest pain, palpitations, SOB, headache, tremors and lightheadedness. Patient remains afebrile and hemodynamically stable. Physical Exam Physical Exam: General: patient resting comfortably, NAD, non-toxic in appearance, answers questions appropriately. Skin: warm, dry, intact HEENT: NC/AT, anicteric sclera, conjunctiva without injection, moist mucus membranes. Heart: +S1/S2, regular, no m/r/g Lungs: equal air entry bilaterally, no rales/rhonchi/wheezes Abd: +BS, soft, NT/ND Ext: warm, no clubbing/cyanosis or edema Neuro: nonfocal, speech intact, no facial droop, moving all extremities. Results & Data Results & Data Vital Signs (Past 12 Hours) Vital Signs Temp Pulse Resp BP BP Pulse Ox O2 Del Method 07/01/25 08:28 36.8 C 102 H 18 128/89 98 Room Air 07/01/25 04:15 36.7 C 102 H 18 132/93 98 Room Air 07/01/25 03:15 36.7 C 133 H 20 125/93 98 Room Air 07/01/25 01:22 36.6 C 93 H 18 147/98 H 98 Room Air 06/30/25 21:19 36.7 C 76 16 127/87 97 Room Air Resident Activity Tracking Resident Involvement: Resident Care Provided Care Provided: Adult Hospital Medicine (1) Alcohol withdrawal Complication of substance-induced condition: with unspecified complication Qualified Code(s): F10.939 - Alcohol use, unspecified with withdrawal, unspecified (3) Depression Depression Type: unspecified Qualified Code(s): F32.A - Depression, unspecified"
[2025-07-01 10:01] LABS: Potassium 3.9 mmol/L (3.5-5.1)
--- NOTE | 2025-07-01 17:42 | Billing Data ---
Date of Service July 01, 2025 Coding Level of Care Code 22182 SUB INP/OBS CARE MIN
[2025-07-02 00:21] VITALS: O2SAT 97
[2025-07-02 04:27] VITALS: TEMP 98.1
--- NOTE | 2025-07-02 07:31 | Discharge Summary ---
Date of Service July 02, 2025 Admission HPI Per Admitting Provider patient is a very pleasant 35-year-old male known to me from prior admissionshe is coming in with early signs of alcohol withdrawal. He would like to quit drinking he has just had a lot of struggles. This time he is planning on a sobriety plan where his brother will be helping act as a mentor, and he will get much more involved with his advent. He feels this is an approach that hopefully will help him. He notes that his most recent struggles had to do with his really not doing well with rehab, as well as a nonproductive relationship with a woman who had similar struggles. Admission Exam Per Admitting Provider General he is awake alert oriented pleasant somewhat anxious and a little bit tremulous. HEENT normocephalic atraumatic mucous membranes moist. Cardio is regular rate. Breathing unlabored no accessory muscle use good effort. Skin without rashes pallor or icterus. Mildly tremulous. No focal neurodeficits. Mentation is intact. Labs and diagnostics noted. Principal Diagnosis Acute alcohol withdrawal Discharge Exam General: patient resting comfortably, NAD, non-toxic in appearance, answers questions appropriately. Skin: warm, dry, intact HEENT: NC/AT, anicteric sclera, conjunctiva without injection, moist mucus membranes. Heart: +S1/S2, regular, no m/r/g Lungs: equal air entry bilaterally, no rales/rhonchi/wheezes Abd: +BS, soft, NT/ND Ext: warm, no clubbing/cyanosis or edema Neuro: nonfocal, speech intact, no facial droop, moving all extremities. Discharge Data Allergies Allergy/AdvReac Type Severity Reaction Status Date / Time diphenhydramine AdvReac Severe "DON'T Verified 06/29/25 19:40 [From Benadryl] LIKE TO TAKE" Antihistamines - Alkylamine AdvReac Intermediate "Just Verified 06/29/25 19:40 Don't Feel Right When I Take Them" Antihistamines - Ethanolamine AdvReac Intermediate "Just Verified 06/29/25 19:40 Don't Feel Right When I Take Them" Antihistamines - AdvReac Intermediate "Just Verified 06/29/25 19:40 Ethylenediamine Don't Feel Right When I Take Them" Antihistamines - Piperazine AdvReac Intermediate "Just Verified 06/29/25 19:40 Don't Feel Right When I Take Them" Antihistamines - Piperidine AdvReac Intermediate "Just Verified 06/29/25 19:40 Don't Feel Right When I Take Them" buspirone [From BuSpar] AdvReac Intermediate Shaking/john Verified 06/29/25 19:40 mor Consultations 06/29/25 19:32 ED Decision to Admit Stat Ordered Studies 06/29/25 17:38 CT Abd and Pelvis [CT abd pelvis IV con only] Stat Hospital Course (1) Alcohol withdrawal: (2) Alcohol abuse: (3) Depression: (4) Anxiety: (5) Elevated liver enzymes: Plan 35-year-old male with past medical history of alcohol use disorder, alcohol withdrawal seizures, depression, anxiety, PTSD, methamphetamine use disorder, tobacco use disorder. He presented to the ED with early onset of alcohol withdrawal symptoms. He drinks 1/5 of vodka daily and has been doing this for the last 2 weeks. Patient reports he has been recently relapsing in the last 2 months he was admitted to [facility] in May for alcohol withdrawal. Prior to coming to the ED, he started becoming very tremulous, having visual hallucinations, nausea and vomiting. Alcohol level 283.5 on admission. He was admitted to the hospital for alcohol withdrawal with history of alcohol withdrawal seizures. #Alcohol withdrawal | Alcohol use disorder - Alcohol withdrawal protocol with Ativan/Librium as he notes that he has done well with this regimen previously - Continue thiamine, folate, multivitamin - Zofran PRN nausea - Seizure precautions - CT A/P obtained d/t RLQ pain - noted fatty infiltration of the liver but no signs of appendicitis. AST elevated at 115, LFTs otherwise WNL - Fortunately right now symptoms appear fairly mild and he reports symptomatic improvement. - Consider d/c tomorrow morning if patient's symptoms remain well controlled #Mild hypokalemia - Continue regular diet - Will trend with AM labs #Anxiety/depression continue home medications DVT PPx: ambulation - escalate to pharmacologic if the withdrawal becomes worse or he becomes less mobile. Dispo: Continued inpatient stay Total Time Total Time Spent Total Time Spent (In Minutes): less than 30 Discharge Plan Discharge Items Patient Disposition: Home - Self-Care Reason For Visit: ETOH WITHDRAWL Discharge Diagnosis: ETOH withdrawal Condition on Discharge: Fair Activity: Per Instructions section Non-emergency contact: Primary Care Provider Call non-emergency contact if: your symptoms worsen Follow-up/Referrals: PCP,NO [Primary Care Provider] - Diet: Regular Ambulatory Orders: Hepatic Function (Liver) Panel (Routine) Timeframe: 1 Week Location: Determined by Patient Ordered By: Kleber Camarena Attending Provider Instructions: You were admitted to the hospital for an acute alcohol withdrawal. You were treated with Librium and Ativan therapy and were closely monitored for signs of withdrawal over the last 60 hours and we feel that discharge is a viable option today as you have not shown worsening signs of illness, high heart rates, profuse sweating, tremors, seizures or continued hallucinations. I believe that you have the awareness to recognize when you are entering a spiral of depression and anxiety, and am glad that you made your brother aware of the situation and you were able to quickly be admitted before we encountered any severe adverse effects or withdrawal symptoms. Please continue to maintain regular mental health therapy, both with medications and with a therapist. A good social support structure and regular attendance at events where you are with loved ones or friends will be part of the non-medical means of controlling your anxiety. Regular exercise, yoga, sports, and meditation are a few of many opportunities to help clear your mind, and typically most people do feel better, especially when they are able to use turn to these techniques rather then submit to an urge to drink. If you are successful in doing this then there is a high chance that when you are back home 30min-1hr after such an activity, the urge to drink will be less. It is also important that you try and cut bad influences out of your life as you are able, I urge you to avoid your past significant other, and others who will push you to drink. Try to maintain a zuni of peers that motivate you to push yourself to be better, healthier, and happy. An outpatient order to check your liver function (LFTs) will be sent with you on discharge, plan to check these levels in approximately 1 week and discuss these results with your PCP whom you should be following up with soon after this test. Plan to schedule an appointment to discuss alcohol cessation and next steps with your PCP in approximately a week and a half. Please call and set this appointment up in the next few days. A discharge summary will be sent to your primary care physician to ensure continuity of care. Please bring this discharge summary with you to your next office appointment so that your provider can review it at that time. Follow-up appointments: Make a follow-up appointment with your PCP within the next week. It is very important that you follow up with them shortly after discharge from the hospital. Medications: Your medication list has been reviewed and reconciled upon discharge to ensure accuracy and continuity of care. An updated list of all your medications is included with your hospital discharge paperwork. Please review this list closely, and make note of any changes. Take your medications as instructed; do not skip a dose of your medicines. Make sure all of your doctors know every medicine you are taking (including hkee-ifv-qmoabsh medicines, vitamins, and supplements). Call your primary care provider before taking any new medicines (including wwek-rbh-bzrzqgl medicines, vitamins, and supplements), because some of these may interact with your current medications, or may make your symptoms worse. Tell your primary care provider if you cannot afford your medications. CONTACT YOUR PRIMARY CARE PROVIDER if you experience any of the following: Difficulty following your treatment plan, or difficulty taking medications CALL 911 OR GO TO THE EMERGENCY DEPARTMENT if you experience any of the following: Sudden, severe abdominal pain or nausea/vomiting Severe chest pain, or chest pain that radiates (moves) to your jaw or arm Sudden, severe shortness of breath or difficulty breathing Thank you for allowing us to participate in your care. Pending Studies at Discharge: No Stand-Alone Forms: My [facility], Smoking Cessation Medications and DC Order Prescriptions: Continued buprenorphine-naloxone 8-2 mg tablet, sublingual 1 tab SUBLINGUAL TID quetiapine 50 mg tablet 50 mg PO HS 30 Days Qty: 30 0RF thiamine HCl (vitamin B1) 100 mg Tablet 100 mg PO QAM 90 Days Qty: 90 0RF folic acid 1 mg Tablet 1 mg PO QAM 90 Days Qty: 90 0RF fexofenadine 180 mg Tablet 180 mg PO DAILY PRN (Reason: Allergy Symptoms) Discharge Orders: Discharge Order (Routine); Ordered 07/02/25 Ordered By: Kleber Rockwell Admission Data Admit Date/Time: 06/29/25 19:59 Attending Provider: Jesse Matthew Admit Provider: Jesse Matthew Primary Care Provider: PCP,NO Other Providers: Reji Villavicencio Supervising Physician Co-Signing Physician Notes I personally examined the patient and verified all abel points of history and exam, discussed case, and agree with decision making with Dr Rockwell feeling better overall. No further hallucinations and feels up to going home. Vitals noted, in general he is awake and alert pleasant no distress. HEENT normocephalic atraumatic mucous membranes moist. Breathing unlabored no accessory muscle use good effort. Skin without rashes pallor or icterus. Neuro without focal deficits. Alcohol abuse/withdrawal doing better. Symptoms improved. Safe/stable for home. Encouraged his sobriety plan. Resident Activity Tracking Resident Involvement: Resident Care Provided Care Provided: Adult Hospital Medicine
[2025-07-02 08:09] LABS: Hematocrit (blood only) 41.5 % (42.0-52.0); Hemoglobin 15.1 g/dl (14.0-18.0); Immature Granulocytes # (auto) 0.02 K/uL (0.01-0.20); Immature Granulocytes % (auto) 0.3 %; Mean Corpuscular Hemoglobin 31.8 pg (25.0-34.0); Mean Corpuscular Volume 87.4 fL (80.0-100.0); Platelet Count 158 K/uL (130-400); RDW Standard Deviation 42.1 fL (36.4-46.3); Red Blood Count 4.75 M/uL (4.70-6.10); White Blood Count 6.69 K/ul (4.8-10.8)
[2025-07-02 08:25] LABS: Alanine Aminotransferase 71.0 U/L (7-52); Alkaline Phosphatase 90.0 U/L (34-104); Anion Gap 10.0 (3-11); Bilirubin,Total 0.8 mg/dl (0.2-1.0); Blood Urea Nitrogen 13.0 mg/dl (6-23); Calcium 9.3 mg/dl (8.6-10.3); Carbon Dioxide 23.0 mmol/L (21-32); Chloride 106.0 mmol/L (98-107); Creatinine Clr Calc Pharmacy 101.1 ml/min; Glucose 123.0 mg/dl (70-99(Fasting)); Potassium 3.7 mmol/L (3.5-5.1); Sodium 139.0 mmol/L (136-145); Total Protein 8.2 gm/dl (6.0-8.3)
[2025-07-02 09:01] VITALS: BP 143/91; PULSE 104
[2025-07-02 09:08] VITALS: RESP 22
[2025-07-02] MEDS: FEXOFENADINE HCL 180 MG TAB PO PRN (09:31)
--- NOTE | 2025-07-02 13:30 | Billing Data ---
Date of Service July 02, 2025 Coding Level of Care Code 25667 IN/OBS DISCH 30 MIN/LESS
== END 2025-07-02 14:58 | disposition home or self-care (01) | DRG 897 ==
LOC: ED 17:10 → SUATTDRO 19:59 → EDINP 19:59 → 3N 22:09

== ENCOUNTER 2025-07-16 20:27 | Inpatient (IN) ==
[2025-07-16 21:05] LABS: Hematocrit (blood only) 39.3 % (42.0-52.0); Hemoglobin 14.3 g/dl (14.0-18.0); Immature Granulocytes # (auto) 0.04 K/uL (0.01-0.20); Immature Granulocytes % (auto) 0.4 %; Mean Corpuscular Hemoglobin 32.5 pg (25.0-34.0); Mean Corpuscular Volume 89.3 fL (80.0-100.0); Platelet Count 303 K/uL (130-400); RDW Standard Deviation 45.9 fL (36.4-46.3); Red Blood Count 4.40 M/uL (4.70-6.10); White Blood Count 10.32 K/ul (4.8-10.8)
--- NOTE | 2025-07-16 21:11 | Emergency Department Note ---
Impression & Plan Alcoholic intoxication, Alcohol abuse, Alcohol withdrawal ED Provider Note NAME: MARYSOL RUTLEDGE AGE: 35 SEX: M : 1990 ARRIVES VIA: Walk-In INFORMANT: Patient, ED PROVIDER(S): Shayne Angulo DO CHIEF COMPLAINT: Alcohol abuse HPI: The patient is a 35-year-old male who presented to the emergency department for an evaluation. The patient has a long history of alcohol abuse. He also has a history of mental health issues. The patient comes the emergency department from time to time whenever he has severe depression as well as suicidal ideation. He is also presented to the emergency department for his alcohol related issues. At this time the patient is denying any suicidal homicidal ideation. He is admitting that he started drinking alcohol earlier today. He is been drinking significant amounts of vodka. The patient would like to be evaluated for possible inpatient treatment. ROS: See above HPI for pertinent positives & negatives. A total of 10 systems reviewed and were otherwise negative. PAST MEDICAL HISTORY: See Below PAST SURGICAL HISTORY: See Below FAMILY HISTORY: See Below SOCIAL HISTORY: See Below HOME MEDICATIONS: See Below ALLERGIES: See Below VITALS: See Below PHYSICAL EXAMINATION: GENERAL: The patient is awake and alert. He is somewhat anxious.. EYES: The conjunctivae are clear. The pupils are round and reactive. EARS, NOSE, MOUTH AND THROAT: The nose is without any evidence of any deformity. NECK: The neck is nontender and supple. RESPIRATORY: Normal respiratory effort is noted there is no evidence of wheezing rhonchi or rales CARDIOVASCULAR: Tachycardic but regular heart sounds were noted to auscultation. There is no definite murmur. GASTROINTESTINAL: The abdomen is soft. Abdomen is nontender. MUSCULOSKELETAL/EXTREMITIES: There is no evidence of gross deformity full range of motion is noted in the hips and shoulders. SKIN: There is no obvious evidence of any rash. There are no petechiae, pallor or cyanosis noted. NEUROLOGIC: Patient is awake alert and oriented x3. Gait was steady. PSYCH: The patient makes good eye contact mostly evaluation. His affect is flat. The patient is currently denying any suicidal homicidal ideation. MEDICAL DECISION MAKING: The patient is a 35-year-old male who presented to the emergency department for an evaluation. The patient has a long history of alcohol abuse. The patient also has a history of alcohol withdrawal and significant DTs. Patient was treated with IV fluids in emergency department. He was also treated with IV Ativan. I discussed the patient's laboratory and radiographic studies with him. Ultimately the patient was felt to be at high risk for withdrawal. He normally would present with suicidal ideation and depression but at this time the patient does not appear to have much of a mental health component to his presentation today. I notified Dr. Lala about the patient. He will evaluate the patient in the emergency department. Triage Nursing notes reviewed. Prior medical records reviewed Vital Signs: reviewed and remarkable for tachycardia and hypertension. Differential diagnosis: Alcohol intoxication, toxicologic, infection, hypoglycemia, electrolyte abnormalities, cardiac sources, intracerebral event, neurologic, trauma, as well as other pathologies. ER treatment provided: See below Diagnostics interpreted by me: ECG: EKG was obtained in the emergency department. My interpretation is sinus tachycardia at 103 bpm. There is no ectopy. There is no acute ST segment abnormalities noted. QTc was 458 ms. Cardiac Monitoring: An order was placed for continuous cardiac monitoring. The monitor shows a rate of 112 bpm with sinus tachycardia. Laboratory studies: As stated above and show below. Imaging studies: See below. Radiographic imaging was reviewed by myself Consultation(s): Dr. Birch was notified about the patient. He will evaluate the patient in the emergency department. The emergency departmental health human services case manager was notified. The patient was evaluated by the [facility] human services case manager although no mental health issues were identified at this time. Past Med/Surg History Problem List (Updated 07/16/25 @ 22:21 by Shayne Angulo DO) Alcoholic intoxication (Acute) Alcohol withdrawal Nausea & vomiting (Acute) Right lower quadrant abdominal pain (Acute) Alcohol withdrawal (Acute) Anxiety (Acute) Depression (Acute) Alcohol abuse (Acute) Nicotine use Methamphetamine use Post traumatic stress disorder (PTSD) (Chronic) Depression (Acute) Elevated liver enzymes Major depressive disorder, recurrent episode (Acute) Enlarged liver (Acute) Seasonal allergies (Acute) Anxiety (Acute) Medical History Alcohol withdrawal Alcohol use disorder, severe, dependence Acute dehydration Heart palpitations Hypokalemia COVID-19 Transaminitis Acid reflux Tobacco abuse Homicidal ideation Depression with suicidal ideation Alcohol intoxication 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 Diplopia Anxiety and depression Depressive disorder Alcoholic hepatitis Lab test negative for COVID-19 virus No pertinent family history BRITTNY (generalized anxiety disorder) Left leg cellulitis Headache Dizziness Surgical History No pertinent past surgical history Family History Mother Other No significant family history Denies family history of Ovarian cancer Prostate cancer Myocardial infarction Breast cancer Colorectal cancer Hypertension Social History Smoking Status: Current every day smoker Tobacco Type: Cigarettes Second Hand Exposure: No; Do You Dip or Chew Tobacco: No; Hx Alcohol Use: Yes Alcohol type: beer Hx Substance Use: No Preferred Language: Persian Communication Ability: Effective Visual Impairment: No Limitations Hearing Ability: Normal Chemical Engineer Required: No Beliefs That Will Affect Care: None marital status: marital status details: Current Living Situation: Alone current occupational status: employed How many Children do You have: 1 Feels Safe at Home: Yes Childhood Exposure to Second-Hand Smoke: No Diet: regular Dental Care, Regularly: Yes Physical Activity Frequency: Daily Seatbelt Use: always Sunscreen Use: No Assistive Devices: None Allergies Allergies Allergy/AdvReac Type Severity Reaction Status Date / Time diphenhydramine AdvReac Severe "DON'T Verified 06/29/25 19:40 [From Benadryl] LIKE TO TAKE" Antihistamines - Alkylamine AdvReac Intermediate "Just Verified 06/29/25 19:40 Don't Feel Right When I Take Them" Antihistamines - Ethanolamine AdvReac Intermediate "Just Verified 06/29/25 19:40 Don't Feel Right When I Take Them" Antihistamines - AdvReac Intermediate "Just Verified 06/29/25 19:40 Ethylenediamine Don't Feel Right When I Take Them" Antihistamines - Piperazine AdvReac Intermediate "Just Verified 06/29/25 19:40 Don't Feel Right When I Take Them" Antihistamines - Piperidine AdvReac Intermediate "Just Verified 06/29/25 19:40 Don't Feel Right When I Take Them" buspirone [From BuSpar] AdvReac Intermediate Shaking/john Verified 06/29/25 19:40 mor Home Meds Home Medications Medication Instructions Recorded Confirmed buprenorphine 8 mg-naloxone 2 mg 1 tab sublingual TID 05/27/24 06/29/25 sublingual tablet fexofenadine 180 mg tablet 180 mg PO DAILY PRN Allergy 06/29/25 06/29/25 Symptoms Previous Rx's Medication Instructions Recorded folic acid 1 mg tablet 1 mg PO QAM 90 days #90 tabs 06/03/25 thiamine HCl (vitamin B1) 100 mg 100 mg PO QAM 90 days #90 tabs 06/03/25 tablet Results & Data (ED) Vital Signs Vital Signs - 24 hr 07/16/25 20:29 07/16/25 20:51 07/16/25 20:51 Temperature 37 C Temperature Source Temporal Artery Scan Pulse Rate 124 H Respiratory Rate 18 Respiratory Effort / Characteristics Non-Labored Non-Labored Respiratory Depth Normal Normal Blood Pressure 142/91 H Blood Pressure Mean 108 Pulse Oximetry 94 97 Oxygen Delivery Method Room Air Room Air Sepsis Recent Fever Within 48 Hours No Sepsis New/Unexplained Change in Mental Status No Sepsis Action Taken by Nursing No Action Required Home Medications Current Medication List: was personally reviewed by me Laboratory Data Attestation: I reviewed the patient's lab results. 07/16/25 20:45 07/16/25 20:45 Lab Results 07/16/25 07/16/25 07/16/25 Range/Units 20:44 20:45 21:09 WBC 10.32 (4.8-10.8) K/ul RBC 4.40 L (4.70-6.10) M/uL Hgb 14.3 (14.0-18.0) g/dl Hct 39.3 L (42.0-52.0) % MCV 89.3 (80.0-100.0) fL MCH 32.5 (25.0-34.0) pg MCHC 36.4 H (32.0-36.0) g/dL RDW Std Deviation 45.9 (36.4-46.3) fL RDW Coeff of Bryanna 14.0 (11.5-14.5) % Plt Count 303 (130-400) K/uL MPV 9.6 (9.4-12.4) fL Immature Gran % (Auto) 0.4 % Neut % (Auto) 70.2 % Lymph % (Auto) 23.4 % Winston % (Auto) 4.9 % Eos % (Auto) 0.1 % Baso % (Auto) 1.0 % Neut # (Auto) 7.24 H (1.40-6.50) K/uL Lymph # (Auto) 2.42 (1.20-3.40) K/uL Winston # (Auto) 0.51 (0.11-0.59) K/uL Eos # (Auto) 0.01 (0.00-0.50) K/uL Baso # (Auto) 0.10 (0.00-0.20) K/uL Immature Gran # (Auto) 0.04 (0.01-0.20) K/uL PT 10.1 (9.0-12.0) Seconds INR 0.9 (0.9-1.1) Sodium 136 (136-145) mmol/L Potassium 3.9 (3.5-5.1) mmol/L Chloride 98 (98-107) mmol/L Carbon Dioxide 20 L (21-32) mmol/L Anion Gap 18 H (3-11) BUN 13 (6-23) mg/dl Creatinine 0.99 (0.6-1.4) mg/dl Est Cr Clr Drug Dosing 118.8 ml/min eGFR 102.51 BUN/Creatinine Ratio 13.1 (10-20) Glucose 147 H (70-99(Fasting)) mg/dl Calcium 8.9 (8.6-10.3) mg/dl Magnesium 1.8 (1.7-2.4) mg/dl Total Bilirubin 0.4 (0.2-1.0) mg/dl AST 68 H (13-39) U/L ALT 34 (7-52) U/L Alkaline Phosphatase 75 (34-104) U/L Total Creatine Kinase 363 H (30-223) U/L Troponin I High Sens 7.8 (0-20) pg/ml Total Protein 7.9 (6.0-8.3) gm/dl Albumin 4.1 (3.4-5.0) gm/dl Globulin 3.8 (2.5-4.0) gm/dl Albumin/Globulin Ratio 1.1 (0.9-2) Lipase 40 (11-82) U/L Urine Color Yellow Urine Appearance Clear (Clear) Urine pH 5.5 (4.5-7.5) Ur Specific [place] 1.009 (1.000-1.030) Urine Protein Negative (Negative) Urine Glucose (UA) Negative (Negative) Urine Ketones 2+ H (Negative) Urine Blood Negative (Negative) Urine Nitrite Negative (Negative) Urine Bilirubin Negative (Negative) Urine Urobilinogen Negative (Negative) Ur Leukocyte Esterase 1+ H (Negative) Urine WBC (Auto) 0-5 (0-5) /hpf Urine RBC (Auto) 0-2 (0-2) /hpf U Hyaline Cast (Auto) 0-2 (0-2) /lpf U Epithel Cells (Auto) 0-2 (0-2) /hpf Urine Bacteria (Auto) None Seen (None Seen) Urine Comment Salicylates < 3.0 L (3.0-30) mg/dl Urine Opiates Screen Neg (Neg) Ur Methadone, Qual Neg (Neg) Urine Fentanyl Screen Neg (Neg) Acetaminophen < 3 L (10-30) ug/ml Urine Barbiturates Neg (Neg) Ur Phencyclidine (PCP) Neg (Neg) U Amphetamin/Meth Scrn Neg (Neg) MDMA (Ecstasy) Screen Neg (Neg) U Benzodiazepines Scrn Pos H (Neg) Ur Cocaine Metabolite Neg (Neg) U Marijuana (THC) Screen Neg (Neg) Ethyl Alcohol mg/dL 281.7 H (<10.0) mg/dl Administered Medications Discontinued Medications Sodium Chloride (Nss) 1,000 mls @ 999 mls/hr IV .[id number] Stop: 07/16/25 22:00 Last Admin: 07/16/25 21:20 Dose: 999 mls/hr Documented By: ESME Lorazepam (Lorazepam 1 Mg/1 Ml Syr Ed Inj Use) 1 mg IV ONE STA Stop: 07/16/25 21:38 Last Admin: 07/16/25 21:52 Dose: 1 mg Documented By: ESME Nicotine (Nicotine 14 Mg/24 Hr Patch) 1 patch TD ONE ONE Stop: 07/16/25 21:10 Last Admin: 07/16/25 21:18 Dose: 1 patch Documented By: ESME Ondansetron HCl (Ondansetron Inj 2 Mg/Ml 2 Ml Vial) 4 mg IV NOW STA Stop: 07/16/25 20:52 Last Admin: 07/16/25 21:18 Dose: 4 mg Documented By: ESME Discharge Plan Visit Data Chief Complaint: Alcohol Withdrawal Stated Complaint: ALCOHOL WITHDRAWL ED Provider: Shayne Angulo Discharge Problem: Alcoholic intoxication, Alcohol abuse, Alcohol withdrawal Patient Disposition: Being Evaluated by Hospitalist Condition: Fair Forms Stand Alone Forms: My [facility], Suicide Prevention Resources Prescriptions Prescriptions: No Action buprenorphine-naloxone 8-2 mg tablet, sublingual 1 tab SUBLINGUAL TID thiamine HCl (vitamin B1) 100 mg Tablet 100 mg PO QAM 90 Days Qty: 90 0RF folic acid 1 mg Tablet 1 mg PO QAM 90 Days Qty: 90 0RF fexofenadine 180 mg Tablet 180 mg PO DAILY PRN (Reason: Allergy Symptoms) Referrals Referrals: PCP,NO [Primary Care Provider] -
[2025-07-16] MEDS: ONDANSETRON INJ 2 MG/ML 2 ML VIAL IV STA (21:18)
[2025-07-16] MEDS: NICOTINE 14 MG/24 HR PATCH TD ONE (21:18)
[2025-07-16] MEDS: SODIUM CHLORIDE 0.9% 1,000 ML IV SCH (21:20)
[2025-07-16 21:21] LABS: Alanine Aminotransferase 34.0 U/L (7-52); Albumin Globulin Ratio 1.1 (0.9-2); Albumin Level 4.1 gm/dl (3.4-5.0); Alkaline Phosphatase 75.0 U/L (34-104); Anion Gap 18.0 (3-11); Bilirubin,Total 0.4 mg/dl (0.2-1.0); Blood Urea Nitrogen 13.0 mg/dl (6-23); Calcium 8.9 mg/dl (8.6-10.3); Carbon Dioxide 20.0 mmol/L (21-32); Chloride 98.0 mmol/L (98-107); Creatine Kinase 363.0 U/L (30-223); Creatinine Clr Calc Pharmacy 118.8 ml/min; Globulin 3.8 gm/dl (2.5-4.0); Glucose 147.0 mg/dl (70-99(Fasting)); Lipase 40.0 U/L (11-82); Magnesium 1.8 mg/dl (1.7-2.4); Potassium 3.9 mmol/L (3.5-5.1); Sodium 136.0 mmol/L (136-145); Total Protein 7.9 gm/dl (6.0-8.3)
[2025-07-16 21:28] LABS: Appearance Urine Clear (Clear); Bacteria Urine Automated None Seen (None Seen); Cast Urine Automated 0-2 /lpf (0-2); Epithelial Cell Urine Auto 0-2 /hpf (0-2); Glucose Urine UA Negative (Negative); RBC Urine Automated 0-2 /hpf (0-2); WBC Urine Automated 0-5 /hpf (0-5)
[2025-07-16 21:33] LABS: INR 0.9 (0.9-1.1); Prothrombin Time 10.1 Seconds (9.0-12.0)
[2025-07-16 21:41] LABS: Acetaminophen < 3 ug/ml (10-30); Salicylate < 3.0 mg/dl (3.0-30)
[2025-07-16] MEDS: LORazepam 1 MG/1 ML SYR ED Inj Use IV STA (21:52)
[2025-07-16 22:03] LABS: Amphetamines+Metham, Urine Neg (Neg); MDMA (Ecstacy), Urine Neg (Neg); Marijuana, Urine Neg (Neg)
[2025-07-16] MEDS ORDERED: chlordiazePOXIDE ALCOHOL WITHDRAWL 50MG PO STA (22:46)
--- NOTE | 2025-07-16 22:57 | History & Physical Report ---
Date of Service July 16, 2025 Assessment & Plan (1) Alcohol withdrawal: (2) Alcohol use disorder, severe, dependence: (3) Alcoholic intoxication: (4) High anion gap metabolic acidosis: Plan Patient is a 35-year-old male with a past medical history including alcohol use disorder with a history of alcohol withdrawal seizures; he has had numerous readmissions for alcohol withdrawal over several years. Patient presented requesting a detox in active alcohol withdrawal; he typically does well with Ativan and Librium. #alcohol withdrawal/alcohol use disorder - Typically drinks ~1000mL Vodka daily; last drink 07/16 1600. LFTs improved from patient's baseline, CK 363, EtOH 281.7 at time of admission. - AWSS active protocol with IV Ativan - Librium taper ordered - has done well with this in the past - thiamine 500 mg IV and folic acid 1 Mg IV at time of admission; continue with Thiamine IV 100mg and folic acid 1mg IV QAM - seizure precautions - Zofran prn, pantoprazole daily #high anion gap metabolic acidosis anion gap of 18, CO2 20, chloride 98, renal function stable. EtOH 281.7, acetaminophen and salicylate level negative. - 1L NSS bolus in the ED, continue aggressive fluid resuscitation with LR at 125 mL/hour Trend CMP, magnesium, phosphorus #illicit drug use - Patient does endorse to using methamphetamine recently, stated that he last used over a week ago. Denies any other illicit drug use. Positive for benzodiazepines on UDS. Stated he is not taking his Suboxone since most recent admission. Continue to hold Suboxone Follow further UDS #tobacco use disorder3/4 pack of cigarettes per day plus vaping. NicoDerm patch ordered Encourage smoking cessation #anxiety/depressioncontinue home Seroquel. Patient denies any current SI/HI at time of admission. #Fatty liver diseaseLFTs improved at time of admission. VTE ppx: SCDs, low risk and able to ambulate Dispo: PCU Admission and Anticipated Discharge Date Admission Date: 07/16/25 History of Present Illness Chief Complaint: alcohol withdrawal Primary Care Provider: NO PCP Patient is a 35-year-old male with a past medical history including alcohol use disorder with a history of alcohol withdrawal seizures; he has had numerous readmissions for alcohol withdrawal over several years. Patient presented requesting a detox in active alcohol withdrawal; he typically does well with Ativan and Librium. Patient seen at bedside. He stated after his last discharge he went home and started drinking again after about 4 days. He drinks about 1/5 and a quarter of vodka per day, his last drink was 7 hours ago. He does have a history of alcohol withdrawal seizures however most recent was 2 years ago. He endorses anxiety, nausea, dyspnea, dizziness/lightheadedness, heart palpitations. 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 He just received 1 mg IV Ativan in the ED; HR improving from 124 to 104 at bedside. Denies any current suicidal ideation, he stated he has just been dealing with his usual grief. He is unsure as to if he would like to try rehab after admission. He stated last time he went to rehab he met a girl that he moved in with however has been dealing with social issues related to this relationship. Offered patient to speak with psychiatry however he declined as he feels unsure about it at this time. He stated he smokes about 3/4 packs of cigarettes per day and occasional vaping. He does endorse recent methamphetamine use, last doing so last Sunday. He stopped taking this because he thought it would help with his ADHD. He stated he has not taken his home Suboxone since his most recent admission because he "gave up". He does endorse intermittently taking his folic acid and thiamine supplements. Allergies Allergy/AdvReac Type Severity Reaction Status Date / Time diphenhydramine AdvReac Severe "DON'T Verified 07/16/25 22:28 [From Michael] LIKE TO TAKE" Antihistamines - Alkylamine AdvReac Intermediate "Just Verified 07/16/25 22:28 Don't Feel Right When I Take Them" Antihistamines - Ethanolamine AdvReac Intermediate "Just Verified 07/16/25 22:28 Don't Feel Right When I Take Them" Antihistamines - AdvReac Intermediate "Just Verified 07/16/25 22:28 Ethylenediamine Don't Feel Right When I Take Them" Antihistamines - Piperazine AdvReac Intermediate "Just Verified 07/16/25 22:28 Don't Feel Right When I Take Them" Antihistamines - Piperidine AdvReac Intermediate "Just Verified 07/16/25 22:28 Don't Feel Right When I Take Them" buspirone [From BuSpar] AdvReac Intermediate Shaking/john Verified 07/16/25 22:28 mor Home Medications Medication Instructions Recorded Confirmed Type buprenorphine 8 mg-naloxone 2 mg 1 tab sublingual TID 05/27/24 07/16/25 History sublingual tablet folic acid 1 mg tablet 1 mg PO QAM 90 days #90 tabs 06/03/25 07/16/25 Rx thiamine HCl (vitamin B1) 100 mg 100 mg PO QAM 90 days #90 tabs 06/03/25 07/16/25 Rx tablet fexofenadine 180 mg tablet 180 mg PO DAILY PRN Allergy 06/29/25 07/16/25 History Symptoms quetiapine 50 mg tablet 50 mg PO HS 07/16/25 07/16/25 History Past Med/Surg History Problem List (Updated 07/16/25 @ 23:13 by Rere Becker PA-C) Alcohol use disorder, severe, dependence High anion gap metabolic acidosis Alcoholic intoxication (Acute) Alcohol withdrawal Nausea & vomiting (Acute) Right lower quadrant abdominal pain (Acute) Alcohol withdrawal (Acute) Anxiety (Acute) Depression (Acute) Alcohol abuse (Acute) Nicotine use Methamphetamine use Post traumatic stress disorder (PTSD) (Chronic) Depression (Acute) Elevated liver enzymes Major depressive disorder, recurrent episode (Acute) Enlarged liver (Acute) Seasonal allergies (Acute) Anxiety (Acute) Medical History Alcohol withdrawal Alcohol use disorder, severe, dependence Acute dehydration Heart palpitations Hypokalemia COVID-19 Transaminitis Acid reflux Tobacco abuse Homicidal ideation Depression with suicidal ideation Alcohol intoxication 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 Diplopia Anxiety and depression Depressive disorder Alcoholic hepatitis Lab test negative for COVID-19 virus No pertinent family history BRITTNY (generalized anxiety disorder) Left leg cellulitis Headache Dizziness Surgical History No pertinent past surgical history Family History Mother Other No significant family history Denies family history of Ovarian cancer Prostate cancer Myocardial infarction Breast cancer Colorectal cancer Hypertension Social History Smoking Status: Current every day smoker Tobacco Type: Cigarettes Second Hand Exposure: No; Do You Dip or Chew Tobacco: No; Hx Alcohol Use: Yes Alcohol type: beer Hx Substance Use: No Preferred Language: Malay Communication Ability: Effective Visual Impairment: No Limitations Hearing Ability: Normal 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: No Beliefs That Will Affect Care: None marital status: marital status details: Current Living Situation: Alone current occupational status: employed How many Children do You have: 1 Other Information That Helps Us Care for You: No Feels Safe at Home: Yes Safety Concerns: Feels Safe At This Time Childhood Exposure to Second-Hand Smoke: No Diet: regular Dental Care, Regularly: Yes Physical Activity Frequency: Daily Seatbelt Use: always Sunscreen Use: No Assistive Devices: Glasses Review of Systems Review of Systems: see HPI Physical Exam Physical Exam: The patient is awake, alert and oriented 3, well developed and well nourished, normocephalic and atraumatic, in no acute distress. Non-toxic appearing. HEENT- EOMI, mucous membranes moist. Hearing grossly intact. Heart-normal S1 and S2, tachycardia (Hr 111). No murmurs, rubs or gallops. Lungs-clear bilaterally, no respiratory distress, no accessory muscle use. Abdomen-normal bowel sounds and soft. No ascites noted. Non-tender. Extremities- no clubbing, cyanosis, or edema. Rheumatologic-normal range of motion. Psychiatric-anxious affect. Results & Data Results & Data Vital Signs (Past 12 Hours) Vital Signs Temp Pulse Pulse Resp BP BP Pulse Ox 07/16/25 22:27 104 H 18 127/80 94 07/16/25 20:51 97 07/16/25 20:29 37 C 124 H 18 142/91 H 94 O2 Del Method 07/16/25 22:27 Room Air 07/16/25 20:51 Room Air 07/16/25 20:29 Room Air Laboratory Results Abnormal lab results 07/16/25 07/16/25 07/16/25 Range/Units 20:44 20:45 21:09 RBC 4.40 L (4.70-6.10) M/uL Hct 39.3 L (42.0-52.0) % MCHC 36.4 H (32.0-36.0) g/dL Neut # (Auto) 7.24 H (1.40-6.50) K/uL Carbon Dioxide 20 L (21-32) mmol/L Anion Gap 18 H (3-11) Glucose 147 H (70-99(Fasting)) mg/dl AST 68 H (13-39) U/L Total Creatine Kinase 363 H (30-223) U/L Urine Ketones 2+ H (Negative) Ur Leukocyte Esterase 1+ H (Negative) Salicylates < 3.0 L (3.0-30) mg/dl Acetaminophen < 3 L (10-30) ug/ml U Benzodiazepines Scrn Pos H (Neg) Ethyl Alcohol mg/dL 281.7 H (<10.0) mg/dl Medications Administered EDAtivan 1 mg IV, NicoDerm patch, Zofran 4 Mg IV, 1L NSS ECG Additional Comments: sinus tachycardia, rate 103 QTc 458 Code Status & VTE Plan Code Status full code - not discussed with patient given severity of psychiatric history. History of SI. VTE Prophylaxis Plan VTE Prophylaxis will be ordered: Yes Supervising Physician Co-Signing Physician Notes Attending addendum: I have physically seen this patient, have supervised the medical residents activities, and agree with the H&P unless as otherwise noted. Assessment and Plan: The patient is a 35-year-old male with past medical history including alcohol use disorder, alcohol withdrawal seizures, and numerous readmissions for alcohol withdrawal over several years. He presents to the emergency department in active alcohol withdrawal, which is usually treated with Ativan and Librium Alcohol withdrawal/alcohol use disorder- Average intake is about 1000 mL of vodka daily, with last drink 07/16 at 1600 hrs. Thiamine 500 mg IV now, and then 100 mg IV every morning Folic acid 1 mg IV now, and then 1 mg IV every morning Seizure precautions Zofran 4 mg IV every 6 hours as needed Pantoprazole 40 mg IV daily Alcoholic hepatitis- Liver enzymes are chronically elevated Tobacco use disorder- Three-quarter pack of cigarettes daily plus vaping NicoDerm patch Smoking cessation counseling Illicit drug use- Admits to recent use of methamphetamine, with last use over a week ago Urine drug screen positive for benzodiazepines Remaining orders and notations as noted PG Care Time/CCT Total # of Minutes Spent Total Time Spent with Patient: Total time spent is greater than 50% in coordination of care (as documented) at patient's floor/unit and/or counseling patient: Coding Level of Care Code 66890 INT INP/OBS CARE MIN Diagnoses Alcohol withdrawal F10.939 Complication of substance-induced condition: with unspecified complication Alcohol use disorder, severe, dependence F10.20 Alcoholic intoxication F10.929 High anion gap metabolic acidosis E87.29 (1) Alcohol withdrawal Complication of substance-induced condition: with unspecified complication Qualified Code(s): F10.939 - Alcohol use, unspecified with withdrawal, unspecified
[2025-07-16] MEDS ORDERED: ONDANSETRON INJ 2 MG/ML 2 ML VIAL IV PRN (23:34)
[2025-07-16] MEDS ORDERED: MELATONIN 3 MG TAB PO PRN (23:34)
[2025-07-16] MEDS ORDERED: DOCUSATE SODIUM 100 MG CAP PO PRN (23:34)
[2025-07-16] MEDS ORDERED: ACETAMINOPHEN 325 MG TAB PO PRN (23:34)
[2025-07-17] MEDS: THIAMINE HCL 500 MG in SODIUM CHLORIDE 0.9% 50 ML IV ONE (00:05)
[2025-07-17] MEDS: LACTATED RINGER'S 1,000 ML IV SCH (00:05)
[2025-07-17] MEDS: FOLIC ACID 1 MG in SYRINGE 9.8 ML IV STA (00:05)
[2025-07-17 04:09] LABS: Hematocrit (blood only) 34.8 % (42.0-52.0); Hemoglobin 11.8 g/dl (14.0-18.0); Immature Granulocytes # (auto) 0.02 K/uL (0.01-0.20); Immature Granulocytes % (auto) 0.3 %; Mean Corpuscular Hemoglobin 30.7 pg (25.0-34.0); Mean Corpuscular Volume 90.6 fL (80.0-100.0); Platelet Count 239 K/uL (130-400); RDW Standard Deviation 47.2 fL (36.4-46.3); Red Blood Count 3.84 M/uL (4.70-6.10); White Blood Count 6.59 K/ul (4.8-10.8)
[2025-07-17 04:27] LABS: Alanine Aminotransferase 24.0 U/L (7-52); Albumin Globulin Ratio 1.3 (0.9-2); Albumin Level 3.6 gm/dl (3.4-5.0); Alkaline Phosphatase 58.0 U/L (34-104); Anion Gap 11.0 (3-11); Bilirubin,Total 0.4 mg/dl (0.2-1.0); Blood Urea Nitrogen 11.0 mg/dl (6-23); Calcium 8.3 mg/dl (8.6-10.3); Carbon Dioxide 24.0 mmol/L (21-32); Chloride 104.0 mmol/L (98-107); Creatinine Clr Calc Pharmacy 126.5 ml/min; Globulin 2.7 gm/dl (2.5-4.0); Glucose 155.0 mg/dl (70-99(Fasting)); Magnesium 1.7 mg/dl (1.7-2.4); Potassium 3.6 mmol/L (3.5-5.1); Sodium 139.0 mmol/L (136-145); Total Protein 6.3 gm/dl (6.0-8.3)
--- NOTE | 2025-07-17 07:59 | Hospitalist Progress Note ---
Date of Service July 17, 2025 Assessment & Plan (1) Alcohol use disorder, severe, dependence: (2) Alcohol withdrawal: (3) Nicotine use: (4) Methamphetamine use: Plan In summary this is a 35-year-old male who presents with symptomatic alcohol withdrawal #Severe Alcohol Withdrawal PA WSS score 7; initially elevated transaminases which have been downtrending, no indication for steroid intervention at this time; patient feels that the symptoms are mildly worsened at this point in time, they do feel previous to the exam better with phenobarbital as opposed to benzodiazepine directed medical therapy Discontinue benzodiazepines at this time Start phenobarbital protocol with bolus dosing given the patient's present symptomatology with subsequent transition to oral as tolerated Patient is unsure if they are interested in pursuing inpatient rehabilitation at this time Admission and Anticipated Discharge Date Admission Date: July 16, 2025 Subjective Mr. Block is a 35-year-old male whose active med conditions include alcohol use disorder with severe dependence, nicotine use disorder, stimulant use disorder, major depressive disorder with recurrent episodes who presented to the [facility] on 07/17 due to symptomatic alcohol withdrawal. Patient states that her last alcoholic beverage was on the day of presentation drinking approximately 1-1-1/4 fifths daily. They further endorse concomitant use of nicotine products as well as methamphetamines, the latter of which was most recently used within the past 7 days prior to presentation. Review of Systems Review of Systems: Review of constitutional, cardiovascular, pulmonary, gastrointestinal systems was unremarkable; neurologic review was remarkable for slight upper extremity tremulousness as well as elevated levels of anxiety Physical Exam Physical Exam: General: Adult male in mild acute distress Vital Signs: Reviewed, intermittently tachycardic in the rate of 100 to 110 bpm HEENT: Moist mucous membranes; pupils equally round reactive to light, extraocular motion intact Pulmonary: Symmetric chest wall rise; clear to auscultation bilaterally Cardiovascular: Regular rate and rhythm without murmurs, rubs, or gallops; S1 and S2 normal; bilateral radial pulse 2+ Gastrointestinal: Soft, nontender Neurologic: Cranial nerves II through XII grossly intact; no discernible focal weakness nor paresthesias; asterixis present with upper extremity extension Psychiatric: Endorses increased level of anxiety; denies hallucinations, both visual and auditory at this time Results & Data Results & Data Vital Signs (Past 12 Hours) Vital Signs Temp Pulse Pulse Resp BP BP Pulse Ox 07/17/25 06:31 115/69 07/17/25 06:31 115/69 07/17/25 06:30 88 17 96 07/17/25 06:06 92 H 22 112/76 94 07/17/25 05:51 85 20 94 07/17/25 05:45 91 H 17 94 07/17/25 05:30 87 16 103/63 93 07/17/25 05:21 94 H 18 94 07/17/25 05:18 95 H 16 95 07/17/25 05:00 115/73 07/17/25 05:00 115/73 07/17/25 05:00 115/73 07/17/25 05:00 101 H 16 95 07/17/25 04:51 95 H 16 93 07/17/25 04:45 95 H 19 93 07/17/25 04:36 97 H 17 94 07/17/25 04:21 96 H 18 93 07/17/25 04:18 99 H 12 96 07/17/25 04:00 112/89 07/17/25 04:00 98 H 112/89 07/17/25 04:00 112/89 07/17/25 04:00 98 H 14 94 07/17/25 03:42 100 H 23 94 07/17/25 03:39 87 20 95 07/17/25 03:30 120/61 07/17/25 03:24 99 H 16 94 07/17/25 03:21 100 H 16 95 07/17/25 03:12 97 H 17 93 07/17/25 03:07 07/17/25 03:00 98 H 18 94 07/17/25 03:00 104/56 L 07/17/25 02:54 101 H 17 95 07/17/25 02:39 96 H 16 94 07/17/25 02:30 123/82 07/17/25 02:30 123/82 07/17/25 02:30 123/82 07/17/25 02:06 96 H 22 94 07/17/25 02:00 104/62 07/17/25 02:00 104/62 07/17/25 02:00 104/62 07/17/25 02:00 104/62 07/17/25 02:00 100 H 18 93 07/17/25 01:56 93 H 07/17/25 01:51 98 H 18 92 07/17/25 01:42 99 H 17 93 07/17/25 01:39 98 H 19 93 07/17/25 01:30 117/61 07/17/25 01:12 95 H 17 93 07/17/25 00:57 98 H 17 93 07/17/25 00:42 103 H 17 93 07/17/25 00:01 07/17/25 00:00 98 H 21 92 07/17/25 00:00 108/61 07/17/25 00:00 108/61 07/17/25 00:00 108/61 07/16/25 23:51 99 H 16 93 07/16/25 23:49 99 H 20 97/58 L 94 07/16/25 23:48 98 H 19 94 07/16/25 23:48 99 H 20 97/58 L 94 07/16/25 23:48 07/16/25 23:30 104 H 21 92 07/16/25 23:30 97/58 L 07/16/25 23:24 105 H 17 93 07/16/25 23:21 92 07/16/25 23:15 102 H 18 93 07/16/25 23:03 105 H 18 93 07/16/25 23:00 108/57 L 07/16/25 23:00 108/57 L 07/16/25 23:00 108/57 L 07/16/25 23:00 108/57 L 07/16/25 22:42 108 H 21 98 07/16/25 22:39 110 H 17 97 07/16/25 22:27 104 H 18 127/80 94 07/16/25 22:24 103 H 18 94 07/16/25 22:00 127/80 07/16/25 22:00 106 H 19 94 07/16/25 21:52 109 H 07/16/25 21:42 108 H 16 90 07/16/25 21:30 126/85 07/16/25 20:51 97 07/16/25 20:29 37 C 124 H 18 142/91 H 94 Pulse Ox O2 Del Method O2 Del Method O2 Flow Rate 07/17/25 06:31 07/17/25 06:31 07/17/25 06:30 07/17/25 06:06 07/17/25 05:51 07/17/25 05:45 07/17/25 05:30 07/17/25 05:21 07/17/25 05:18 07/17/25 05:00 07/17/25 05:00 07/17/25 05:00 07/17/25 05:00 07/17/25 04:51 07/17/25 04:45 07/17/25 04:36 07/17/25 04:21 07/17/25 04:18 07/17/25 04:00 07/17/25 04:00 07/17/25 04:00 07/17/25 04:00 07/17/25 03:42 07/17/25 03:39 07/17/25 03:30 07/17/25 03:24 07/17/25 03:21 07/17/25 03:12 07/17/25 03:07 Room Air 07/17/25 03:00 07/17/25 03:00 07/17/25 02:54 07/17/25 02:39 07/17/25 02:30 07/17/25 02:30 07/17/25 02:30 07/17/25 02:06 07/17/25 02:00 07/17/25 02:00 07/17/25 02:00 07/17/25 02:00 07/17/25 02:00 07/17/25 01:56 07/17/25 01:51 07/17/25 01:42 07/17/25 01:39 07/17/25 01:30 07/17/25 01:12 07/17/25 00:57 07/17/25 00:42 07/17/25 00:01 93 Room Air 07/17/25 00:00 07/17/25 00:00 07/17/25 00:00 07/17/25 00:00 07/16/25 23:51 07/16/25 23:49 Room Air 07/16/25 23:48 07/16/25 23:48 Room Air 07/16/25 23:48 93 Room Air 0 07/16/25 23:30 07/16/25 23:30 07/16/25 23:24 07/16/25 23:21 Room Air 07/16/25 23:15 07/16/25 23:03 07/16/25 23:00 07/16/25 23:00 07/16/25 23:00 07/16/25 23:00 07/16/25 22:42 07/16/25 22:39 07/16/25 22:27 Room Air 07/16/25 22:24 07/16/25 22:00 07/16/25 22:00 07/16/25 21:52 07/16/25 21:42 07/16/25 21:30 07/16/25 20:51 Room Air 07/16/25 20:29 Room Air PG Care Time/CCT Total # of Minutes Spent Total Time Spent with Patient: Total time spent is greater than 50% in coordination of care (as documented) at patient's floor/unit and/or counseling patient: Coding Level of Care Code 16693 SUB INP/OBS CARE 3/50MIN Diagnoses Alcohol use disorder, severe, dependence F10.20 Alcohol withdrawal F10.939 Complication of substance-induced condition: with unspecified complication Nicotine use Z72.0 Methamphetamine use F15.10 (2) Alcohol withdrawal Complication of substance-induced condition: with unspecified complication Qualified Code(s): F10.939 - Alcohol use, unspecified with withdrawal, unspecified
[2025-07-17] MEDS: NICOTINE 14 MG/24 HR PATCH TD SCH (08:43)
[2025-07-17] MEDS: REMOVE NICODERM PATCH SCH (08:48)
[2025-07-17] MEDS ORDERED: REMOVE NICODERM PATCH SCH (08:59)
[2025-07-17] MEDS: FOLIC ACID 1 MG in SYRINGE 9.8 ML IV SCH (09:01)
[2025-07-17] MEDS: THIAMINE HCL 100 MG in SYRINGE 9 ML IV SCH (09:01)
[2025-07-17] MEDS ORDERED: PHENobarbital PO Alcohol Withdrawal PO STA (12:11)
[2025-07-18 06:15] LABS: Alanine Aminotransferase 29.0 U/L (7-52); Albumin Globulin Ratio 1.3 (0.9-2); Albumin Level 3.8 gm/dl (3.4-5.0); Alkaline Phosphatase 56.0 U/L (34-104); Anion Gap 8.0 (3-11); Bilirubin,Total 0.7 mg/dl (0.2-1.0); Blood Urea Nitrogen 8.0 mg/dl (6-23); Calcium 8.9 mg/dl (8.6-10.3); Carbon Dioxide 29.0 mmol/L (21-32); Chloride 103.0 mmol/L (98-107); Creatinine Clr Calc Pharmacy 136.8 ml/min; Globulin 2.9 gm/dl (2.5-4.0); Glucose 121.0 mg/dl (70-99(Fasting)); Potassium 3.5 mmol/L (3.5-5.1); Sodium 140.0 mmol/L (136-145); Total Protein 6.7 gm/dl (6.0-8.3)
--- NOTE | 2025-07-18 06:19 | Electrocardiogram Report ---
Test Reason : Blood Pressure : */* mmHG Vent. Rate : 103 BPM Atrial Rate : 103 BPM P-R Int : 168 ms QRS Dur : 100 ms QT Int : 350 ms P-R-T Axes : 48 60 40 degrees QTcB Int : 458 ms Sinus tachycardia Otherwise normal ECG When compared with ECG of 29-Jun-2025 17:48, Vent. rate has increased by 34 bpm Confirmed by Gustabo Victoria ([id number]) on 07/18/2025 6:19:46 AM Referred By: REFERRED SELF Confirmed By: Gustabo Victoria
--- NOTE | 2025-07-18 08:03 | Hospitalist Progress Note ---
Date of Service July 18, 2025 Assessment & Plan (1) Alcohol use disorder, severe, dependence: (2) Alcohol withdrawal: (3) Nicotine use: (4) Methamphetamine use: Plan In summary this is a 35-year-old male who presents with symptomatic alcohol withdrawal #Severe Alcohol Withdrawal PAWSS score 7; initially elevated transaminases which have been downtrending, no indication for steroid intervention at this time; patient reports their symptoms have markedly improved though still present as they progress through withdrawal since transitioning from benzodiazepine to phenobarbital management Continue phenobarbital protocol with bolus dosing given the patient's present symptomatology with subsequent transition to oral as tolerated Patient is unsure if they are interested in pursuing inpatient rehabilitation at this time - Follow daily CMP for hepatic function and electrolyte balance in the setting of insensible fluid losses Admission and Anticipated Discharge Date Admission Date: July 16, 2025 Subjective Mr. Block is a 35-year-old male whose active med conditions include alcohol use disorder with severe dependence, nicotine use disorder, stimulant use disorder, major depressive disorder with recurrent episodes who presented to the [facility] on 07/17 due to symptomatic alcohol withdrawal. Patient states that her last alcoholic beverage was on the day of presentation drinking approximately 1-1-1/4 fifths daily. They further endorse concomitant use of nicotine products as well as methamphetamines, the latter of which was most recently used within the past 7 days prior to presentation. Overnight the patient had an isolated episode of visual hallucinations which resolved; they feel their symptoms are well controlled at this time Review of Systems Review of Systems: Review of constitutional, cardiovascular, pulmonary, gastrointestinal systems was unremarkable; neurologic review remarkable for sustained, but improved, upper extremity tremulousness at rest and worsened with activity as well as transient visual hallucinations overnight; they endorse still present, but improved, anxiety Physical Exam Physical Exam: General: Adult male in no acute distress Vital Signs: Reviewed HEENT: Moist mucous membranes; pupils equally round reactive to light, extraocular motion intact Pulmonary: Symmetric chest wall rise; clear to auscultation bilaterally Cardiovascular: Regular rate and rhythm without murmurs, rubs, or gallops; S1 and S2 normal; bilateral radial pulse 2+ Gastrointestinal: Soft, nontender Neurologic: Cranial nerves II through XII grossly intact; no discernible focal weakness nor paresthesias; tremulousness present with upper extremity extension Psychiatric: Endorses increased level of anxiety; denies current hallucinations, both visual and auditory at this time Results & Data Results & Data Vital Signs (Past 12 Hours) Vital Signs Temp Pulse Pulse Resp BP Pulse Ox O2 Del Method 07/18/25 07:25 36.7 C 71 19 115/76 95 Room Air 07/18/25 04:00 36.4 C L 64 20 123/80 96 Room Air 07/18/25 00:00 36.5 C 77 18 148/86 H 98 Room Air 07/17/25 22:04 75 PG Care Time/CCT Total # of Minutes Spent Total Time Spent with Patient: Total time spent is greater than 50% in coordination of care (as documented) at patient's floor/unit and/or counseling patient: Coding Level of Care Code 07820 SUB INP/OBS CARE 2/35MIN Diagnoses Alcohol use disorder, severe, dependence F10.20 Alcohol withdrawal F10.939 Complication of substance-induced condition: with unspecified complication Nicotine use Z72.0 Methamphetamine use F15.10 (2) Alcohol withdrawal Complication of substance-induced condition: with unspecified complication Qualified Code(s): F10.939 - Alcohol use, unspecified with withdrawal, unspecified
[2025-07-19 06:02] LABS: Alanine Aminotransferase 45.0 U/L (7-52); Albumin Globulin Ratio 1.3 (0.9-2); Albumin Level 4.1 gm/dl (3.4-5.0); Alkaline Phosphatase 59.0 U/L (34-104); Anion Gap 9.0 (3-11); Bilirubin,Total 0.6 mg/dl (0.2-1.0); Blood Urea Nitrogen 7.0 mg/dl (6-23); Calcium 9.3 mg/dl (8.6-10.3); Carbon Dioxide 25.0 mmol/L (21-32); Chloride 106.0 mmol/L (98-107); Creatinine Clr Calc Pharmacy 161.1 ml/min; Globulin 3.1 gm/dl (2.5-4.0); Glucose 125.0 mg/dl (70-99(Fasting)); Potassium 3.5 mmol/L (3.5-5.1); Sodium 140.0 mmol/L (136-145); Total Protein 7.2 gm/dl (6.0-8.3)
--- NOTE | 2025-07-19 07:43 | Hospitalist Progress Note ---
Date of Service July 19, 2025 Assessment & Plan (1) Alcohol use disorder, severe, dependence: (2) Alcohol withdrawal: (3) Nicotine use: (4) Methamphetamine use: (5) Opioid use disorder, moderate, in early remission, on maintenance therapy, dependence: Plan In summary this is a 35-year-old male who presents with symptomatic alcohol withdrawal #Severe Alcohol Withdrawal PAWSS score 7; initially elevated transaminases which have been downtrending, no indication for steroid intervention at this time; continues to improve, now on oral tapering PHB Continue phenobarbital protocol Patient is unsure if they are interested in pursuing inpatient rehabilitation at this time #Opioid use disorder in early remission with maintenance therapy Patient is established with [facility] in [place]; in the past few months has transition to Rexulti from previously prescribed Suboxone; the patient is past due based on PDMP review for the next dose of Rexulti which is not available in formulary, therefore we will resume the patient's previously dosed Suboxone as detailed below Start Suboxone 8/2 mg SL 3 times daily Admission and Anticipated Discharge Date Admission Date: July 16, 2025 Subjective Mr. Block is a 35-year-old male whose active med conditions include alcohol use disorder with severe dependence, nicotine use disorder, stimulant use disorder, major depressive disorder with recurrent episodes who presented to the [facility] on 07/17 due to symptomatic alcohol withdrawal. Patient states that her last alcoholic beverage was on the day of presentation drinking approximately 1-1-1/4 fifths daily. They further endorse concomitant use of nicotine products as well as methamphetamines, the latter of which was most recently used within the past 7 days prior to presentation. No acute overnight events; patient feels well this morning, more like their "usu al self" Review of Systems Review of Systems: Review of constitutional, cardiovascular, pulmonary, gastrointestinal, and neurologic systems was unremarkable Physical Exam Physical Exam: General: Adult male in no acute distress Vital Signs: Reviewed HEENT: Moist mucous membranes Pulmonary: Symmetric chest wall rise Cardiovascular: Regular rate and rhythm with bilateral radial pulse 2+ Neurologic: Cranial nerves II through XII grossly intact Psychiatric: denies current hallucinations, both visual and auditory at this time Results & Data Results & Data Vital Signs (Past 12 Hours) Vital Signs Temp Pulse Pulse Resp BP BP Pulse Ox 07/19/25 07:24 36.3 C L 71 19 120/79 95 07/19/25 07:00 65 07/19/25 03:33 36.8 C 67 20 109/73 96 07/19/25 00:03 36.8 C 69 20 116/75 98 07/18/25 22:14 72 O2 Del Method 07/19/25 07:24 Room Air 07/19/25 07:00 07/19/25 03:33 Room Air 07/19/25 00:03 Room Air 07/18/25 22:14 PG Care Time/CCT Total # of Minutes Spent Total Time Spent with Patient: Total time spent is greater than 50% in coordination of care (as documented) at patient's floor/unit and/or counseling patient: Coding Level of Care Code 75459 SUB INP/OBS CARE 2/35MIN Diagnoses Alcohol use disorder, severe, dependence F10.20 Alcohol withdrawal F10.939 Complication of substance-induced condition: with unspecified complication Nicotine use Z72.0 Methamphetamine use F15.10 Opioid use disorder, moderate, in early remission, on maintenance therapy, dependence F11.21 (2) Alcohol withdrawal Complication of substance-induced condition: with unspecified complication Qualified Code(s): F10.939 - Alcohol use, unspecified with withdrawal, unspecified
[2025-07-19] MEDS: FEXOFENADINE HCL 180 MG TAB PO PRN (08:01)
[2025-07-19] MEDS: BUPRENORPHINE/NALOXONE 8/2 MG TAB SL SCH (09:22)
[2025-07-19 11:36] VITALS: PULSE 63; RESP 18; TEMP 98.1; O2SAT 96
[2025-07-19 14:35] VITALS: BP 109/73
--- NOTE | 2025-07-19 19:47 | Discharge Summary ---
Discharge Summary Date of Service July 19, 2025 Principal Dx & Hospital Course #1 = Principal Diagnosis (1) Alcohol use disorder, severe, dependence: (2) Alcohol withdrawal: (3) Nicotine use: (4) Methamphetamine use: (5) Opioid use disorder, moderate, in early remission, on maintenance therapy, dependence: Plan In summary this is a 35-year-old male who presents with symptomatic alcohol withdrawal #Severe Alcohol Withdrawal PAWSS score 7; initially elevated transaminases which have been downtrending, no indication for steroid intervention at this time; continues to improve, now on oral tapering PHB Patient will maintain previously established appointment with [facility] #Opioid use disorder in early remission with maintenance therapy Patient is established with [facility] in [place]; in the past few months has transition to Rexulti from previously prescribed Suboxone; the patient is past due based on PDMP review for the next dose of Rexulti which is not available in formulary, therefore during hospitalization we resumed the patient's previously dosed Suboxone Outpatient script for Suboxone 8/2 mg SL tablet, one tablet every 8 hours, for 4 days as bridging therapy to their scheduled appointment with [facility] Notes For Next Care Provider Patient identified high risk for 30- day readmission. Our hospitalist team would be glad to discuss any details of the hospital stay with you, please reach out by [place] [facility] with a good call back number and we will return your call. Admission HPI Per Admitting Provider Patient is a 35-year-old male with a past medical history including alcohol use disorder with a history of alcohol withdrawal seizures; he has had numerous readmissions for alcohol withdrawal over several years. Patient presented requesting a detox in active alcohol withdrawal; he typically does well with Ativan and Librium. Patient seen at bedside. He stated after his last discharge he went home and started drinking again after about 4 days. He drinks about 1/5 and a quarter of vodka per day, his last drink was 7 hours ago. He does have a history of alcohol withdrawal seizures however most recent was 2 years ago. He endorses anxiety, nausea, dyspnea, dizziness/lightheadedness, heart palpitations. He does endorse vomiting 1 time however took Prilosec at home and stated that a acid dye weigher helper typically helps with his nausea. He just received 1 mg IV Ativan in the ED; HR improving from 124 to 104 at bedside. Denies any current suicidal ideation, he stated he has just been dealing with his usual grief. He is unsure as to if he would like to try rehab after admission. He stated last time he went to rehab he met a girl that he moved in with however has been dealing with social issues related to this relationship. Offered patient to speak with psychiatry however he declined as he feels unsure about it at this time. He stated he smokes about 3/4 packs of cigarettes per day and occasional vaping. He does endorse recent methamphetamine use, last doing so last Sunday. He stopped taking this because he thought it would help with his ADHD. He stated he has not taken his home Suboxone since his most recent admission because he "gave up". He does endorse intermittently taking his folic acid and thiamine supplements. Discharge Exam General: Adult male in no acute distress Vital Signs: Reviewed HEENT: Moist mucous membranes Pulmonary: Symmetric chest wall rise Cardiovascular: Regular rate and rhythm with bilateral radial pulse 2+ Neurologic: Cranial nerves II through XII grossly intact Psychiatric: denies current hallucinations, both visual and auditory at this time Discharge Plan Discharge Items Patient Disposition: Home - Self-Care Reason For Visit: ALCOHOL WITHDRAWL Discharge Diagnosis: Acute alcohol withdrawal with multisubstance use disorders Condition on Discharge: Fair Activity: Per Instructions section Non-emergency contact: Primary Care Provider Call non-emergency contact if: you have any medication questions Follow-up/Referrals: PCP,NO [Primary Care Provider] - Diet: Regular Fluids: 2000ml (8 cups) Addtl Attending Provider Instructions: You were admitted to [facility] due to symptomatic alcohol withdrawal and opioid withdrawal. Your course overall was uncomplicated, being managed with initially intravenous and subsequentially oral phenobarbital. As your hospitalization overlapped with your next Brixadi dose, we resumed your previously prescribed Suboxone therapy for early symptoms of opioid withdrawal. Resources were discussed prior to your discharge, you are strongly encouraged to follow-up with your outpatient addiction medicine provider and follow with alcohol recovery programs of your choice. Pending Studies at Discharge: No Stand-Alone Forms: My [facility] Medications and DC Order Prescriptions: Continued thiamine HCl (vitamin B1) 100 mg Tablet 100 mg PO QAM 90 Days Qty: 90 0RF folic acid 1 mg Tablet 1 mg PO QAM 90 Days Qty: 90 0RF fexofenadine 180 mg Tablet 180 mg PO DAILY PRN (Reason: Allergy Symptoms) quetiapine 50 mg tablet 50 mg PO HS buprenorphine-naloxone 8-2 mg tablet, sublingual 1 tab SUBLINGUAL TID 4 Days Qty: 12 0RF Discharge Orders: Discharge Order (Routine); Ordered 07/19/25 Ordered By: Richie Ha/Other Patient Handouts: Addiction Disease, Addiction Recovery Counseling Admission Data Admit Date/Time: 07/16/25 22:59 Attending Provider: Richie Garcia Admit Provider: Reji Villavicencio Primary Care Provider: PCP,NO Other Providers: Reji Villavicencio Other Interventions: Discharge Summary Assessment (RN) Last Done: 07/19/25 14:34 Hospital Stay Data Consultations 07/16/25 22:15 ED Decision to Admit Stat Pending Results Patient Have Any Pending Studies at Discharge: No Discharge Instructions Given to Patient (Per Discharging Provider) You were admitted to [facility] due to symptomatic alcohol withdrawal and opioid withdrawal. Your course overall was uncomplicated, being managed with initially intravenous and subsequentially oral phenobarbital. As your hospitalization overlapped with your next Brixadi dose, we resumed your previously prescribed Suboxone therapy for early symptoms of opioid withdrawal. Resources were discussed prior to your discharge, you are strongly encouraged to follow-up with your outpatient addiction medicine provider and follow with alcohol recovery programs of your choice. Total Time Total Time Spent Total Time Spent (In Minutes): I spent a total of 45 minutes in coordination of the patient's discharge including review of their PDMP, coordination of controlled substance scripts to prevent recurrent withdraw, physical exam and discussion of plan of care at bedside Coding Level of Care Code 52879 INP/OBS DISCH >30 MIN Diagnoses Alcohol use disorder, severe, dependence F10.20 Alcohol withdrawal F10.939 Complication of substance-induced condition: with unspecified complication Nicotine use Z72.0 Methamphetamine use F15.10 Opioid use disorder, moderate, in early remission, on maintenance therapy, dependence F11.21
== END 2025-07-19 18:52 | disposition home or self-care (01) | DRG 897 ==
LOC: ED 20:27 → SUATTDRO 22:59 → EDINP 22:59 → 4W 23:34

== ENCOUNTER 2025-08-14 16:44 | Inpatient (IN) ==
--- NOTE | 2025-08-14 17:06 | Emergency Department Note ---
Impression & Plan Alcohol use disorder, severe, dependence, Methamphetamine use, Major depressive disorder, recurrent episode ED Provider Note NAME: MARYSOL RUTLEDGE AGE: 35 SEX: M : 1990 ARRIVES VIA: Walk-In INFORMANT: Patient, ED PROVIDER(S): Shayne Angulo DO CHIEF COMPLAINT: Alcohol abuse HPI: The patient is a 35-year-old male who presented to the emergency department for an evaluation. The patient has a long history of alcohol abuse. He states that he is here today because he thinks he might be going through withdrawal but also he has been having some psychotic features. He has had this from time to time. He does admit to methamphetamine use 4 days ago. He admits to alcohol use this morning with vodka. He denies having any vomiting or GI bleeding. He denies having any suicidal or homicidal ideation. He denies having any chest pain or difficulty breathing. ROS: See above HPI for pertinent positives & negatives. A total of 10 systems reviewed and were otherwise negative. PAST MEDICAL HISTORY: See Below PAST SURGICAL HISTORY: See Below FAMILY HISTORY: See Below SOCIAL HISTORY: See Below HOME MEDICATIONS: See Below ALLERGIES: See Below VITALS: See Below PHYSICAL EXAMINATION: GENERAL: The patient is awake and alert. He is somewhat anxious appearing. EYES: The conjunctivae are clear. The pupils are round and reactive. There is no nystagmus appreciated. EARS, NOSE, MOUTH AND THROAT: The nose is without any evidence of any deformity. NECK: The neck is nontender and supple. RESPIRATORY: Normal respiratory effort is noted there is no evidence of wheezing rhonchi or rales CARDIOVASCULAR: Tachycardic and irregular heart sounds were noted to auscultation. There is no definite murmur. GASTROINTESTINAL: The abdomen is soft. Abdomen is nontender. MUSCULOSKELETAL/EXTREMITIES: There is no evidence of gross deformity full range of motion is noted in the hips and shoulders. SKIN: There is no obvious evidence of any rash. There are no petechiae, pallor or cyanosis noted. NEUROLOGIC: Patient is awake alert and oriented x3 strength is symmetric patellar reflexes are 2+ bilaterally PSYCH: The patient's affect is flat. The patient makes poor eye contact mostly evaluation. The patient is denying any suicidal homicidal ideation. MEDICAL DECISION MAKING: The patient is a 35-year-old male who presented to the emergency department with multiple complaints. The patient has a history of alcohol abuse disorder. The patient has a long history of mental health issues as well. He presented to the emergency department requesting evaluation. The patient has high risk for withdrawal. He was stating that he has not had any alcohol since this morning. He was tachycardic and initially hypertensive. He was treated with a small dose of Ativan. I discussed the patient's laboratory results with him. Given his findings I do feel he would be a better candidate for inpatient management. I discussed his condition with the on-call [facility] hospitalist. Triage Nursing notes reviewed. Prior medical records reviewed Vital Signs: reviewed and remarkable for elevated blood pressure and tachycardia. Differential diagnosis: Mood disorder, infection, hypoglycemia, electrolyte abnormalities, cardiac sources, intracerebral event, toxicologic, trauma, neurologic, as well as other pathologies. ER treatment provided: See below Diagnostics interpreted by me: ECG: EKG was obtained in the emergency department. My interpretation is sinus rhythm at 100 bpm. There is no ectopy. There is no acute ST segment abnormalities noted. QTc was 464 ms. Cardiac Monitoring: An order was placed for continuous cardiac monitoring. The monitor shows a rate of 119 bpm with sinus tachycardia. Laboratory studies: As stated above and show below. Imaging studies: See below. Radiographic imaging was reviewed by myself Consultation(s): I discussed this case with Dr. Kate who is on-call for the [facility] group. Past Med/Surg History Problem List (Updated 08/14/25 @ 18:26 by Shayne Angulo DO) Opioid use disorder, moderate, in early remission, on maintenance therapy, dependence Alcohol use disorder, severe, dependence (Acute) Nicotine use Methamphetamine use (Acute) Post traumatic stress disorder (PTSD) (Chronic) Major depressive disorder, recurrent episode (Acute) Enlarged liver (Acute) Seasonal allergies (Acute) Medical History High anion gap metabolic acidosis Alcoholic intoxication Alcohol withdrawal Elevated liver enzymes Alcohol withdrawal Acute dehydration Heart palpitations Hypokalemia COVID-19 Transaminitis Acid reflux Tobacco abuse Homicidal ideation Depression with suicidal ideation Alcohol intoxication 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 Diplopia Anxiety and depression Depressive disorder Alcoholic hepatitis Lab test negative for COVID-19 virus No pertinent family history BRITTNY (generalized anxiety disorder) Left leg cellulitis Headache Dizziness Surgical History No pertinent past surgical history Family History Mother Other No significant family history Denies family history of Ovarian cancer Prostate cancer Myocardial infarction Breast cancer Colorectal cancer Hypertension Social History Smoking Status: Unknown if ever smoked Tobacco Type: Cigarettes Second Hand Exposure: No; Do You Dip or Chew Tobacco: No; Hx Alcohol Use: Yes Alcohol type: beer Hx Substance Use: No Preferred Language: Yoruba Communication Ability: Effective Visual Impairment: No Limitations Hearing Ability: Normal Service Desk Specialist Required: No Beliefs That Will Affect Care: None marital status: marital status details: Current Living Situation: Alone current occupational status: employed How many Children do You have: 1 Feels Safe at Home: Yes Childhood Exposure to Second-Hand Smoke: No Diet: regular Dental Care, Regularly: Yes Physical Activity Frequency: Daily Seatbelt Use: always Sunscreen Use: No Assistive Devices: Glasses Allergies Allergies Allergy/AdvReac Type Severity Reaction Status Date / Time diphenhydramine AdvReac Severe "DON'T Verified 07/16/25 22:28 [From Benadryl] LIKE TO TAKE" Antihistamines - Alkylamine AdvReac Intermediate "Just Verified 07/16/25 22:28 Don't Feel Right When I Take Them" Antihistamines - Ethanolamine AdvReac Intermediate "Just Verified 07/16/25 22:28 Don't Feel Right When I Take Them" Antihistamines - AdvReac Intermediate "Just Verified 07/16/25 22:28 Ethylenediamine Don't Feel Right When I Take Them" Antihistamines - Piperazine AdvReac Intermediate "Just Verified 07/16/25 22:28 Don't Feel Right When I Take Them" Antihistamines - Piperidine AdvReac Intermediate "Just Verified 07/16/25 22:28 Don't Feel Right When I Take Them" buspirone [From BuSpar] AdvReac Intermediate Shaking/john Verified 07/16/25 22:28 mor Home Meds Home Medications Medication Instructions Recorded Confirmed fexofenadine 180 mg tablet 180 mg PO DAILY PRN Allergy 06/29/25 07/16/25 Symptoms quetiapine 50 mg tablet 50 mg PO HS 07/16/25 07/16/25 Previous Rx's Medication Instructions Recorded folic acid 1 mg tablet 1 mg PO QAM 90 days #90 tabs 06/03/25 thiamine HCl (vitamin B1) 100 mg 100 mg PO QAM 90 days #90 tabs 06/03/25 tablet buprenorphine 8 mg-naloxone 2 mg 1 tab sublingual TID 4 days #12 07/19/25 sublingual tablet tabs Results & Data (ED) Vital Signs Vital Signs - 24 hr 08/14/25 16:52 08/14/25 17:05 08/14/25 17:05 Temperature 36.8 C 37.0 C Temperature Source Oral Oral Pulse Rate 138 H 116 H Pulse Rate [Apical] 116 H Pulse Rhythm Regular Pulse Rhythm [Apical] Regular Pulse Strength [Apical] Normal Respiratory Rate 18 16 16 Respiratory Effort / Characteristics Non-Labored Spontaneous Non-Labored Spontaneous Respiratory Depth Normal Normal Respiratory Pattern Regular Blood Pressure 141/85 H Blood Pressure [Right Arm] 140/109 H Blood Pressure Mean 103 Blood Pressure Mean [Right Arm] 119 Pulse Oximetry 96 96 96 Oxygen Delivery Method Room Air Room Air Room Air Sepsis Recent Fever Within 48 Hours No Sepsis New/Unexplained Change in Mental Status No Sepsis Action Taken by Nursing No Action Required 08/14/25 17:07 Temperature Temperature Source Pulse Rate 119 H Pulse Rate [Apical] Pulse Rhythm Pulse Rhythm [Apical] Pulse Strength [Apical] Respiratory Rate Respiratory Effort / Characteristics Respiratory Depth Respiratory Pattern Blood Pressure Blood Pressure [Right Arm] Blood Pressure Mean Blood Pressure Mean [Right Arm] Pulse Oximetry Oxygen Delivery Method Sepsis Recent Fever Within 48 Hours Sepsis New/Unexplained Change in Mental Status Sepsis Action Taken by [facility]pc Medications Current Medication List: was personally reviewed by me Laboratory Data Attestation: I reviewed the patient's lab results. 08/14/25 17:06 08/14/25 17:06 Lab Results 08/14/25 Range/Units 17:06 WBC 10.99 H (4.8-10.8) K/ul RBC 5.28 (4.70-6.10) M/uL Hgb 16.3 (14.0-18.0) g/dl Hct 46.3 (42.0-52.0) % MCV 87.7 (80.0-100.0) fL MCH 30.9 (25.0-34.0) pg MCHC 35.2 (32.0-36.0) g/dL RDW Std Deviation 41.3 (36.4-46.3) fL RDW Coeff of Bryanna 12.7 (11.5-14.5) % Plt Count 334 (130-400) K/uL MPV 9.7 (9.4-12.4) fL Immature Gran % (Auto) 0.3 % Neut % (Auto) 66.0 % Lymph % (Auto) 28.8 % Mingo % (Auto) 3.5 % Eos % (Auto) 0.7 % Baso % (Auto) 0.7 % Neut # (Auto) 7.25 H (1.40-6.50) K/uL Lymph # (Auto) 3.16 (1.20-3.40) K/uL Mingo # (Auto) 0.39 (0.11-0.59) K/uL Eos # (Auto) 0.08 (0.00-0.50) K/uL Baso # (Auto) 0.08 (0.00-0.20) K/uL Immature Gran # (Auto) 0.03 (0.01-0.20) K/uL PT 10.6 (9.0-12.0) Seconds INR 1.0 (0.9-1.1) Sodium 140 (136-145) mmol/L Potassium 3.9 (3.5-5.1) mmol/L Chloride 100 (98-107) mmol/L Carbon Dioxide 27 (21-32) mmol/L Anion Gap 13 H (3-11) BUN 13 (6-23) mg/dl Creatinine 1.00 (0.6-1.4) mg/dl Est Cr Clr Drug Dosing 114.2 ml/min eGFR 101.28 BUN/Creatinine Ratio 13.0 (10-20) Glucose 107 H (70-99(Fasting)) mg/dl Calcium 9.5 (8.6-10.3) mg/dl Magnesium 1.9 (1.7-2.4) mg/dl Total Bilirubin 0.5 (0.2-1.0) mg/dl AST 57 H (13-39) U/L ALT 46 (7-52) U/L Alkaline Phosphatase 86 (34-104) U/L Total Creatine Kinase 175 (30-223) U/L Troponin I High Sens 3.8 (0-20) pg/ml Total Protein 8.2 (6.0-8.3) gm/dl Albumin 4.3 (3.4-5.0) gm/dl Globulin 3.9 (2.5-4.0) gm/dl Albumin/Globulin Ratio 1.1 (0.9-2) Lipase 16 (11-82) U/L Salicylates < 3.0 L (3.0-30) mg/dl Acetaminophen < 3 L (10-30) ug/ml Ethyl Alcohol mg/dL 307.3 H (<10.0) mg/dl Administered Medications Discontinued Medications Sodium Chloride (Nss) 500 mls @ 999 mls/hr IV .Q31M XIOMY Stop: 08/14/25 17:30 Last Admin: 08/14/25 17:21 Dose: 999 mls/hr Documented By: YADIRA Thiamine HCl 200 mg/ Sodium (Chloride) 52 mls @ 210 mls/hr IV NOW STA Stop: 08/14/25 17:18 Last Admin: 08/14/25 17:36 Dose: 210 mls/hr Documented By: YADIRA Lorazepam (Lorazepam 1 Mg/1 Ml Syr Ed Inj Use) 0.5 mg IV ONE STA Stop: 08/14/25 17:05 Last Admin: 08/14/25 17:20 Dose: 0.5 mg Documented By: YADIRA Discharge Plan Visit Data Chief Complaint: Alcohol Withdrawal Stated Complaint: ALCOHOL WITHDRAWL ED Provider: Shayne Angulo Discharge Problem: Alcohol use disorder, severe, dependence, Methamphetamine use, Major depressive disorder, recurrent episode Patient Disposition: Being Evaluated by Hospitalist Condition: Fair Forms Stand Alone Forms: My [facility], Suicide Prevention Resources Prescriptions Prescriptions: No Action thiamine HCl (vitamin B1) 100 mg Tablet 100 mg PO QAM 90 Days Qty: 90 0RF folic acid 1 mg Tablet 1 mg PO QAM 90 Days Qty: 90 0RF fexofenadine 180 mg Tablet 180 mg PO DAILY PRN (Reason: Allergy Symptoms) quetiapine 50 mg tablet 50 mg PO HS buprenorphine-naloxone 8-2 mg tablet, sublingual 1 tab SUBLINGUAL TID 4 Days Qty: 12 0RF Referrals Referrals: PCP,NO [Primary Care Provider] -
[2025-08-14] MEDS: LORazepam 1 MG/1 ML SYR ED Inj Use IV STA (17:20)
[2025-08-14] MEDS: SODIUM CHLORIDE 0.9% 500 ML IV SCH (17:21)
[2025-08-14 17:24] LABS: Hematocrit (blood only) 46.3 % (42.0-52.0); Hemoglobin 16.3 g/dl (14.0-18.0); Immature Granulocytes # (auto) 0.03 K/uL (0.01-0.20); Immature Granulocytes % (auto) 0.3 %; Mean Corpuscular Hemoglobin 30.9 pg (25.0-34.0); Mean Corpuscular Volume 87.7 fL (80.0-100.0); Platelet Count 334 K/uL (130-400); RDW Standard Deviation 41.3 fL (36.4-46.3); Red Blood Count 5.28 M/uL (4.70-6.10); White Blood Count 10.99 K/ul (4.8-10.8)
[2025-08-14] MEDS: THIAMINE HCL 200 MG in SODIUM CHLORIDE 0.9% 50 ML IV STA (17:36)
[2025-08-14 17:37] LABS: Alanine Aminotransferase 46.0 U/L (7-52); Albumin Globulin Ratio 1.1 (0.9-2); Albumin Level 4.3 gm/dl (3.4-5.0); Alkaline Phosphatase 86.0 U/L (34-104); Anion Gap 13.0 (3-11); Bilirubin,Total 0.5 mg/dl (0.2-1.0); Blood Urea Nitrogen 13.0 mg/dl (6-23); Calcium 9.5 mg/dl (8.6-10.3); Carbon Dioxide 27.0 mmol/L (21-32); Chloride 100.0 mmol/L (98-107); Creatine Kinase 175.0 U/L (30-223); Creatinine Clr Calc Pharmacy 114.2 ml/min; Globulin 3.9 gm/dl (2.5-4.0); Glucose 107.0 mg/dl (70-99(Fasting)); Lipase 16.0 U/L (11-82); Magnesium 1.9 mg/dl (1.7-2.4); Potassium 3.9 mmol/L (3.5-5.1); Sodium 140.0 mmol/L (136-145); Total Protein 8.2 gm/dl (6.0-8.3)
[2025-08-14 17:53] LABS: INR 1.0 (0.9-1.1); Prothrombin Time 10.6 Seconds (9.0-12.0)
[2025-08-14 18:00] LABS: Acetaminophen < 3 ug/ml (10-30); Salicylate < 3.0 mg/dl (3.0-30)
--- NOTE | 2025-08-14 18:17 | History & Physical Report ---
Date of Service August 14, 2025 Assessment & Plan (1) Substance-induced psychotic disorder: Plan: 45-year-old male who presents for withdrawal with some concern for psychotic features/loose nations. Did have methamphetamine use 4 days previously. Last alcohol use was this morning. Alcohol withdrawal, high risk He reports he has done poorly in the past with phenobarbital, did have an episode where this was attempted as a transition from benzodiazepines but notes that what helped was resumption of his Suboxone. Feels he has overall done better with benzos in the past would like to avoid phenobarbital PAWSS score >5, very high risk, although had not had a period of a few weeks where he had been sober and has drink continuously for around 4 days he has had withdrawal symptoms with relatively high alcohol levels in the past. 1 dose of Valium given for tremulousness, tachycardia, and developing symptoms. Up to 3 additional as needed doses of Valium q1h ordered, then transition to symptom triggered protocol. Hold for RR less than 10, BP less than 100/50, heart rate less than 50 Admit to PCU Received thiamine in ER. Additional thiamine supplementation continue daily Signed out to overnight resident Substance-induced psychosis Psychotic features in the setting of not taking his quetiapine for 4 days and using methamphetamine for 4 days Seroquel resumed Treatment of alcohol withdrawal as above Continue monitoring Denies SI/HI. Hallucinations are fading, no command hallucinations. Reports he feels safe reaching out to providers and discussing these. Placed on q15m LOS checks. Liason consulted. Opiod Use Disorder in early remission - Sublocade 300mg last given 08/05/2025 Per patient still takes Suboxone 3 times daily, confirmed on PDMP Will continue Suboxone Patient denies any opioid use/opiate coadministration. Denies any recreational drug use other than crystal meth in the last month Disposition: PCU CODE STATUS: Full code (2) Opioid use disorder, moderate, in early remission, on maintenance therapy, dependence: (3) Alcohol use disorder, severe, dependence: (4) Methamphetamine use: History of Present Illness Primary Care Provider: NO PCP Chun presents to the ER for concern of hallucinations and concern of ETOH withdrawal he reports he was trying to control ADHD symptoms with crystal meth 'and this put me off into a complete and total spiral, anxiety went crazy and then I drank much more than normal.' [place] he has not felt normal since 4 days. Prior to taking crystal meth had been able to stay sober from his last admission up to 4 days ago. Last 4 days he started drinking again. DRinking about a half handle a day, in total has gone through three handles of vodka in the last 3 days. Last drink of ETOH was this morning at ~9-10am. Thinks he drank ~1/5 of vodka total last night with the last drink at 9am. Has gone through withdrawal before. This time he feels he is having different symptoms sinc etaking amphetamine. 'Feels like my brain is on fire. Starting to fade and not nearly as bad as a couple days ago, but still don't feel normal' Has use methamphetamine for ADHD symptoms before, last time was ~6 weeks ago. he has had hallucinations and full psychosis in the past. Didnt notice it last time he used methamphetamine, but did have an episode of psychosis for a week or two last October. He feels when he has had psychosis the alcohol has helped settle his high heart rate and agitation 'but that never really works'. He has had withdrawal before once he starts drinking up to 5 drinks a day. Currently taking suboxone. Last dose was ~2 days ago. Not currently taking any recreational drugs other than meth. 4 days ago he used a little less, maybe half of an 8 ball, maybe ~1.5g in total over four days, with the last use daily 4 days ago. He reports he has been having hallucinations the last 4 days. Started after meth. "I see and hear things that aren't there. There are creatures, but I cant tell what they look like I just know and feel like they are there. I feel like I'm in so much psychologic pain, and the sounds sound like hell." Does not see them currently, but has a awareness of something being there especially when closing his eyes. NO current auditory or visual hallucinations. He feels like 'its really hard to describe it, like they're there but also not there at the moment." Last took his seroquel 3 days ago. No thoughts of SI. No voices or hallucinations telling him to hurt himself. Feels safe telling us if that changes, or he felt scared. Last time he went through withdrawal last time. Was switched to phenobarb, but also did not get his suboxone which made things worse so not sure if it was the lack of suboxone or the benzos which caused his worsened withdrawal. He would like to avoid phenobarb this time if possible. Medical History: Reviewed Medications: Reviewed Surgical History: Reviewed Family history: Reviewed Allergies: Reviewed Code Status: Full Allergies Allergy/AdvReac Type Severity Reaction Status Date / Time diphenhydramine AdvReac Severe "DON'T Verified 07/16/25 22:28 [From Benadryl] LIKE TO TAKE" Antihistamines - Alkylamine AdvReac Intermediate "Just Verified 07/16/25 22:28 Don't Feel Right When I Take Them" Antihistamines - Ethanolamine AdvReac Intermediate "Just Verified 07/16/25 22:28 Don't Feel Right When I Take Them" Antihistamines - AdvReac Intermediate "Just Verified 07/16/25 22:28 Ethylenediamine Don't Feel Right When I Take Them" Antihistamines - Piperazine AdvReac Intermediate "Just Verified 07/16/25 22:28 Don't Feel Right When I Take Them" Antihistamines - Piperidine AdvReac Intermediate "Just Verified 07/16/25 22:28 Don't Feel Right When I Take Them" buspirone [From BuSpar] AdvReac Intermediate Shaking/john Verified 07/16/25 22:28 mor Home Medications Medication Instructions Recorded Confirmed Type folic acid 1 mg tablet 1 mg PO QAM 90 days #90 tabs 06/03/25 07/16/25 Rx thiamine HCl (vitamin B1) 100 mg 100 mg PO QAM 90 days #90 tabs 06/03/25 07/16/25 Rx tablet fexofenadine 180 mg tablet 180 mg PO DAILY PRN Allergy 06/29/25 07/16/25 History Symptoms quetiapine 50 mg tablet 50 mg PO HS 07/16/25 07/16/25 History buprenorphine 8 mg-naloxone 2 mg 1 tab sublingual TID 4 days #12 07/19/25 Rx sublingual tablet tabs Past Med/Surg History Problem List (Updated 08/14/25 @ 18:54 by Lazaro Rangel MD) Substance-induced psychotic disorder Opioid use disorder, moderate, in early remission, on maintenance therapy, dependence Alcohol use disorder, severe, dependence (Acute) Nicotine use Methamphetamine use (Acute) Post traumatic stress disorder (PTSD) (Chronic) Major depressive disorder, recurrent episode (Acute) Enlarged liver (Acute) Seasonal allergies (Acute) Medical History High anion gap metabolic acidosis Alcoholic intoxication Alcohol withdrawal Elevated liver enzymes Alcohol withdrawal Acute dehydration Heart palpitations Hypokalemia COVID-19 Transaminitis Acid reflux Tobacco abuse Homicidal ideation Depression with suicidal ideation Alcohol intoxication 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 Diplopia Anxiety and depression Depressive disorder Alcoholic hepatitis Lab test negative for COVID-19 virus No pertinent family history BRITTNY (generalized anxiety disorder) Left leg cellulitis Headache Dizziness Surgical History No pertinent past surgical history Family History Mother Other No significant family history Denies family history of Ovarian cancer Prostate cancer Myocardial infarction Breast cancer Colorectal cancer Hypertension Social History Smoking Status: Unknown if ever smoked Tobacco Type: Cigarettes Second Hand Exposure: No; Do You Dip or Chew Tobacco: No; Hx Alcohol Use: Yes Alcohol type: beer Hx Substance Use: No Preferred Language: Tajik Communication Ability: Effective Visual Impairment: No Limitations Hearing Ability: Normal Contact Worker Lithography Required: No Beliefs That Will Affect Care: None marital status: marital status details: Current Living Situation: Alone current occupational status: employed How many Children do You have: 1 Feels Safe at Home: Yes Childhood Exposure to Second-Hand Smoke: No Diet: regular Dental Care, Regularly: Yes Physical Activity Frequency: Daily Seatbelt Use: always Sunscreen Use: No Assistive Devices: Glasses Physical Exam Physical Exam: General: A&Ox3. NAD. Cooperative. Appears anxious. SKin moist, warm. No piloerection. HEENT: Atraumatic, normocephalic. Pulm: CTAB A&P. -wheezes, -rales, -rhonchi. Symmetrical chest rise. No increased work of breathing. No respiratory distress. Cardiac: tachycardic. -mrg. Radial pulses intact and symmetrical. Abdominal: Nontender, nondistended, soft. BS present. Ext: warm, abhay. Moves all extremities equally. Slight b/l upper extremity tremor. No asterixis. Sensation to soft touch in hands and feet intact. Results & Data Results & Data Vital Signs (Past 12 Hours) Vital Signs Temp Pulse Pulse Resp BP BP Pulse Ox 08/14/25 17:07 119 H 08/14/25 17:05 116 H 16 96 08/14/25 17:05 37.0 C 116 H 16 140/109 H 96 08/14/25 16:52 36.8 C 138 H 18 141/85 H 96 O2 Del Method 08/14/25 17:07 08/14/25 17:05 Room Air 08/14/25 17:05 Room Air 08/14/25 16:52 Room Air PG Care Time/CCT Total # of Minutes Spent Total Time Spent with Patient: Total time spent is greater than 50% in coordination of care (as documented) at patient's floor/unit and/or counseling patient: Coding Level of Care Code 14835 INT INP/OBS CARE 3/75MIN Diagnoses Substance-induced psychotic disorder F19.959 Opioid use disorder, moderate, in early remission, on maintenance therapy, dependence F11.21 Alcohol use disorder, severe, dependence F10.20 Methamphetamine use F15.10
[2025-08-14] MEDS: LACTATED RINGER'S 1,000 ML IV ONE (19:06)
[2025-08-14] MEDS ORDERED: ONDANSETRON INJ 2 MG/ML 2 ML VIAL IV PRN (21:17)
[2025-08-14] MEDS: BUPRENORPHINE/NALOXONE 8/2 MG TAB SL SCH (22:04)
[2025-08-15 06:21] LABS: Hematocrit (blood only) 37.1 % (42.0-52.0); Hemoglobin 13.4 g/dl (14.0-18.0); Immature Granulocytes # (auto) 0.02 K/uL (0.01-0.20); Immature Granulocytes % (auto) 0.3 %; Mean Corpuscular Hemoglobin 32.2 pg (25.0-34.0); Mean Corpuscular Volume 89.2 fL (80.0-100.0); Platelet Count 220 K/uL (130-400); RDW Standard Deviation 41.5 fL (36.4-46.3); Red Blood Count 4.16 M/uL (4.70-6.10); White Blood Count 7.81 K/ul (4.8-10.8)
[2025-08-15 06:35] LABS: Anion Gap 9.0 (3-11); Blood Urea Nitrogen 14.0 mg/dl (6-23); Calcium 8.6 mg/dl (8.6-10.3); Carbon Dioxide 27.0 mmol/L (21-32); Chloride 103.0 mmol/L (98-107); Creatinine Clr Calc Pharmacy 128.4 ml/min; Glucose 87.0 mg/dl (70-99(Fasting)); Magnesium 1.7 mg/dl (1.7-2.4); Potassium 3.8 mmol/L (3.5-5.1); Sodium 139.0 mmol/L (136-145)
--- NOTE | 2025-08-15 07:40 | Hospitalist Progress Note ---
Date of Service August 15, 2025 Assessment & Plan (1) Substance-induced psychotic disorder: Plan: 45-year-old male who presents for withdrawal with some concern for psychotic features/loose nations. Did have methamphetamine use 4 days previously. Last alcohol use was this morning. Alcohol withdrawal, high risk He reports he has done poorly in the past with phenobarbital, did have an episode where this was attempted as a transition from benzodiazepines but notes that what helped was resumption of his Suboxone. Feels he has overall done better with benzos in the past would like to avoid phenobarbital PAWSS score >5, very high risk, although had not had a period of a few weeks where he had been sober and has drink continuously for around the last 4 days. He has had withdrawal symptoms with relatively high alcohol levels in the past. Followed on PCU Showing some signs of withdrawal, proved controlled following doses of IV Valium. Continue symptom triggered management. Will likely be in the hospital for at least 13 more days Substance-induced psychosis Psychotic features in the setting of not taking his quetiapine for 4 days and using methamphetamine for 4 days. Continue monitoring Denies SI/HI. Has waxing waning hallucinations which are somewhat more persistent. Early for DTs and given that these were present while intoxicated and have been since methamphetamine suspect more substance induced than exhibit display representative of DTs. Quetiapine increased to twice daily, continue alcohol withdrawal treatment as noted Opiod Use Disorder in early remission - Sublocade 300mg last given 08/05/2025 Per patient still takes Suboxone 3 times daily, confirmed on PDMP Will continue Suboxone Patient denies any opioid use/opiate coadministration. Denies any recreational drug use other than crystal meth in the last month Disposition: PCU CODE STATUS: Full code (2) Opioid use disorder, moderate, in early remission, on maintenance therapy, dependence: (3) Alcohol use disorder, severe, dependence: (4) Methamphetamine use: Admission and Anticipated Discharge Date Admission Date: August 14, 2025 Subjective Was I seen at the bedside. He admits that he had been drinking a little bit more at night since his last discharge and he initially reported in his H&P and then drank much more all day and night over the last 4 days following his methamphetamine use. He is warm, feels a little sweaty and anxious like with prior withdrawal currently. Hallucinations have waxed and waned. [place] they were little worse this morning but are more in a sense of awareness of voices which she cannot discern, is not having direct visual hallucinations currently. No shortness of breath or difficulty breathing Physical Exam Physical Exam: General: A&Ox3. NAD. Cooperative. Appears anxious. Skin warm, moist. Slight tremor. HEENT: Atraumatic, normocephalic. Vision and hearing grossly intact. Pupils equal and reactive to light Pulm: CTAB A&P. -wheezes, -rales, -rhonchi. Symmetrical chest rise. No increased work of breathing. No respiratory distress. Cardiac: tachycardic. -mrg. Radial pulses intact and symmetrical. Abdominal: Nontender, nondistended, soft. BS present. Ext: Moves all extremities equally. Results & Data Results & Data Vital Signs (Past 12 Hours) Vital Signs Temp Pulse Pulse Resp BP Pulse Ox O2 Del Method 08/15/25 07:25 36.5 C 85 20 151/100 H 97 Room Air 08/15/25 02:52 36.6 C 136 H 20 143/99 H 97 Room Air 08/14/25 22:35 36.3 C L 92 H 18 125/74 94 Room Air 08/14/25 21:43 94 H 08/14/25 21:28 100 H 08/14/25 21:11 38.2 C H 126 H 20 138/90 96 Room Air 08/14/25 20:58 Room Air 08/14/25 20:52 111 H 16 112/71 93 Room Air PG Care Time/CCT Total # of Minutes Spent Total Time Spent with Patient: Total time spent is greater than 50% in coordination of care (as documented) at patient's floor/unit and/or counseling patient: Coding Level of Care Code 83274 SUB INP/OBS CARE 3/50MIN Diagnoses Substance-induced psychotic disorder F19.959 Opioid use disorder, moderate, in early remission, on maintenance therapy, dependence F11.21 Alcohol use disorder, severe, dependence F10.20 Methamphetamine use F15.10
[2025-08-15] MEDS: THIAMINE HCL 100 MG TAB PO SCH (10:01)
[2025-08-15 12:24] LABS: Appearance Urine Clear (Clear); Glucose Urine UA Negative (Negative)
[2025-08-15 12:52] LABS: Amphetamines+Metham, Urine Pos (Neg); MDMA (Ecstacy), Urine Neg (Neg); Marijuana, Urine Neg (Neg)
--- NOTE | 2025-08-15 16:52 | Electrocardiogram Report ---
Test Reason : Blood Pressure : */* mmHG Vent. Rate : 100 BPM Atrial Rate : 100 BPM P-R Int : 156 ms QRS Dur : 98 ms QT Int : 360 ms P-R-T Axes : 54 54 41 degrees QTcB Int : 464 ms Normal sinus rhythm Normal ECG When compared with ECG of 16-Jul-2025 21:33, No significant change was found Confirmed by Yung Gamez ([id number]) on 08/15/2025 4:52:02 PM Referred By: REFERRED SELF Confirmed By: Yung Gamez
[2025-08-16 07:34] LABS: Hematocrit (blood only) 40.1 % (42.0-52.0); Hemoglobin 13.7 g/dl (14.0-18.0); Immature Granulocytes # (auto) 0.02 K/uL (0.01-0.20); Immature Granulocytes % (auto) 0.3 %; Mean Corpuscular Hemoglobin 31.1 pg (25.0-34.0); Mean Corpuscular Volume 90.9 fL (80.0-100.0); Platelet Count 185 K/uL (130-400); RDW Standard Deviation 41.6 fL (36.4-46.3); Red Blood Count 4.41 M/uL (4.70-6.10); White Blood Count 7.41 K/ul (4.8-10.8)
[2025-08-16 07:56] LABS: Anion Gap 8.0 (3-11); Blood Urea Nitrogen 12.0 mg/dl (6-23); Calcium 9.1 mg/dl (8.6-10.3); Carbon Dioxide 28.0 mmol/L (21-32); Chloride 103.0 mmol/L (98-107); Creatinine Clr Calc Pharmacy 148.4 ml/min; Glucose 108.0 mg/dl (70-99(Fasting)); Potassium 3.9 mmol/L (3.5-5.1); Sodium 139.0 mmol/L (136-145)
--- NOTE | 2025-08-16 08:00 | Hospitalist Progress Note ---
Date of Service August 16, 2025 Assessment & Plan (1) Substance-induced psychotic disorder: Plan: 45-year-old male who presents for withdrawal with some concern for psychotic features/loose nations. Did have methamphetamine use 4 days previously. Last alcohol use was this morning. Alcohol withdrawal, high risk He reports he has done poorly in the past with phenobarbital, did have an episode where this was attempted as a transition from benzodiazepines but notes that what helped was resumption of his Suboxone. Feels he has overall done better with benzos in the past would like to avoid phenobarbital PAWSS score >5, very high risk, although had not had a period of a few weeks where he had been sober and has drink continuously for around the last 4 days. He has had withdrawal symptoms with relatively high alcohol levels in the past. Followed on PCU Showing some signs of withdrawal, proved controlled following doses of IV Valium. Continue symptom triggered management Overall improving still with some hallucinations and tremors but greatly i mproved Substance-induced psychosis Psychotic features in the setting of not taking his quetiapine for 4 days and using methamphetamine for 4 days. Continue monitoring Denies SI/HI. Has waxing waning hallucinations which are somewhat more persistent. Early for DTs and given that these were present while intoxicated and have been since methamphetamine suspect more substance induced than re presentative of DTs. Quetiapine increased to twice daily. Had some increased hallucinations transiently overnight 08/15 - 08/16 but in general trending better and much less intense. Opioid Use Disorder in early remission - Sublocade 300mg last given 08/05/2025 Per patient still takes Suboxone 3 times daily, confirmed on PDMP Will continue Suboxone Patient denies any opioid use/opiate coadministration. Denies any recreational drug use other than crystal meth in the last month Hypertension, anxiety Clonidine 0.1 mg 3 times daily continue Disposition planning: Overall Chun is progressing. Some tremulousness and warm skin this morning, heart rate improving. His hallucinations have not yet cleared but are greatly improving with time and Seroquel, along with to be assessed treatment. Hallucinations seem to occur in context of substance use disorder and has not had a history of hallucination/psychosis/schizophrenia outside of substance use. Should have ongoing monitoring to make sure that the hallucinations are clear and do not recur. If resolved hopeful for possible discharge either on daily or twice daily Seroquel 08/17 Disposition: PCU CODE STATUS: Full code (2) Opioid use disorder, moderate, in early remission, on maintenance therapy, dependence: (3) Alcohol use disorder, severe, dependence: (4) Methamphetamine use: Admission and Anticipated Discharge Date Admission Date: August 14, 2025 Subjective Seen at the bedside this morning. Clinically improving. More well oriented. Clarifies that he is still taking his clonidine for both anxiety and blood pressure. He reports that he did have some recurrent slightly worsened hallucinations last night. Notes the morning Seroquel made him very sleepy although seemed to help somewhat. Would like to try to stick to his nighttime dose, but if he continues to have further hallucinations is okay taking another morning Seroquel dose. Tachycardia, sweats, tremors are improving. Physical Exam Physical Exam: General: A&Ox3. NAD. Cooperative. Appears anxious. Skin warm, moist. Slight tremor. Not responding to internal stimuli HEENT: Atraumatic, normocephalic. Vision and hearing grossly intact. Pupils equal and reactive to light Pulm: CTAB A&P. -wheezes, -rales, -rhonchi. Symmetrical chest rise. No increased work of breathing. No respiratory distress. Cardiac: tachycardic. -mrg. Radial pulses intact and symmetrical. Abdominal: Nontender, nondistended, soft. BS present. Ext: Moves all extremities equally. Results & Data Results & Data Vital Signs (Past 12 Hours) Vital Signs Temp Pulse Pulse Resp BP Pulse Ox O2 Del Method 08/16/25 07:51 37.3 C 88 22 147/109 H 97 Room Air 08/16/25 07:42 69 08/16/25 03:50 36.6 C 82 18 149/99 H 98 Room Air 08/15/25 22:47 36.9 C 87 20 147/100 H 98 Room Air 08/15/25 21:42 75 PG Care Time/CCT Total # of Minutes Spent Total Time Spent with Patient: Total time spent is greater than 50% in coordination of care (as documented) at patient's floor/unit and/or counseling patient: Coding Level of Care Code 15890 SUB INP/OBS CARE 3/50MIN Diagnoses Substance-induced psychotic disorder F19.959 Opioid use disorder, moderate, in early remission, on maintenance therapy, dependence F11.21 Alcohol use disorder, severe, dependence F10.20 Methamphetamine use F15.10
[2025-08-17 06:13] LABS: Hematocrit (blood only) 39.5 % (42.0-52.0); Hemoglobin 14.1 g/dl (14.0-18.0); Immature Granulocytes # (auto) 0.01 K/uL (0.01-0.20); Immature Granulocytes % (auto) 0.2 %; Mean Corpuscular Hemoglobin 32.2 pg (25.0-34.0); Mean Corpuscular Volume 90.2 fL (80.0-100.0); Platelet Count 154 K/uL (130-400); RDW Standard Deviation 41.6 fL (36.4-46.3); Red Blood Count 4.38 M/uL (4.70-6.10); White Blood Count 5.38 K/ul (4.8-10.8)
[2025-08-17 07:04] LABS: Anion Gap 9.0 (3-11); Blood Urea Nitrogen 10.0 mg/dl (6-23); Calcium 9.0 mg/dl (8.6-10.3); Carbon Dioxide 25.0 mmol/L (21-32); Chloride 105.0 mmol/L (98-107); Creatinine Clr Calc Pharmacy 163.2 ml/min; Glucose 129.0 mg/dl (70-99(Fasting)); Potassium 3.8 mmol/L (3.5-5.1); Sodium 139.0 mmol/L (136-145)
--- NOTE | 2025-08-17 10:18 | Hospitalist Progress Note ---
Date of Service August 17, 2025 Assessment & Plan (1) Substance-induced psychotic disorder: Plan: 45-year-old male who presents for withdrawal with some concern for psychotic features/loose nations. Did have methamphetamine use 4 days previously. Last alcohol use was this morning. #Alcohol withdrawal, high risk He reports he has done poorly in the past with phenobarbital, did have an episode where this was attempted as a transition from benzodiazepines but notes that what helped was resumption of his Suboxone. Feels he has overall done better with benzos in the past would like to avoid phenobarbital PAWSS score >5, very high risk, although had not had a period of a few weeks where he had been sober and has drink continuously for around the last 4 days. He has had withdrawal symptoms with relatively high alcohol levels in the past. Followed on PCU [place] but improved signs of withdrawal, one dose of Valium o/n. Continue symptom triggered management Overall improving still with some hallucinations and tremors but greatly improved - Given his high risk of relapse, will continue to monitor, ideally 24hrs without abortive medication dosing prior to DC #Substance-induced psychosis Psychotic features in the setting of not taking his quetiapine for 4 days and using methamphetamine for 4 days. Continue monitoring Denies SI/HI. Has waxing waning hallucinations which are somewhat more persistent. Early for DTs and given that these were present while intoxicated and have been since methamphetamine suspect more substance induced than reimbursement representative of DTs. Quetiapine increased to twice daily. Had some increased hallucinations transiently overnight 08/16 - 08/17 #Opioid Use Disorder in early remission - Sublocade 300mg last given 08/05/2025 Per patient still takes Suboxone 3 times daily, confirmed on PDMP Will continue Suboxone Patient denies any opioid use/opiate coadministration. Denies any recreational drug use other than crystal meth in the last month #Hypertension, anxiety Clonidine 0.1 mg 3 times daily continue Disposition planning: Overall Chun is progressing. Some tremulousness and warm skin this morning, heart rate improving. His hallucinations have not yet cleared but are greatly improving with time and Seroquel, along with to be assessed treatment. Hallucinations seem to occur in context of substance use disorder and has not had a history of hallucination/psychosis/schizophrenia outside of substance use. Given his high risk of relapse, will continue to monitor, ideally 24hrs without abortive medication dosing prior to DC, Day to day at this time Disposition: PCU CODE STATUS: Full code (2) Opioid use disorder, moderate, in early remission, on maintenance therapy, d ependence: (3) Alcohol use disorder, severe, dependence: (4) Methamphetamine use: Admission and Anticipated Discharge Date Admission Date: August 14, 2025 Subjective A little bit anxious this morning. Did get a dose of diazepam last night for recurrent anxiety, diaphoresis and a mild hallucinations. His hallucinations tend to be creature like figures. Mostly when his eyes are closed. He does maintain fairly good awareness of these when they are happening noticed them transiently last night but the medications help. Typically goes through withdrawal over the course of 3 to 5 days. We are in the middle of that window at this time. Still quite jittery this morning appetite improving. He feels as though his internal symptoms are improving but more slowly than usual Physical Exam Physical Exam: General: A&Ox3. NAD. Cooperative. Appears anxious. Skin warm, moist. Slight tremor. Not responding to internal stimuli HEENT: Atraumatic, normocephalic. Vision and hearing grossly intact. Pupils equal and reactive to light Pulm: CTAB A&P. -wheezes, -rales, -rhonchi. No increased work of breathing. No respiratory distress. Cardiac: tachycardic. -mrg. Radial pulses intact and symmetrical. Abdominal: Nontender, nondistended, soft. BS present. Ext: Moves all extremities equally. Results & Data Results & Data Vital Signs (Past 12 Hours) Vital Signs Temp Pulse Pulse Resp BP Pulse Ox O2 Del Method 08/17/25 08:02 36.7 C 77 20 137/97 98 Room Air 08/17/25 02:45 36.9 C 89 18 134/95 94 Room Air 08/17/25 01:51 79 08/16/25 22:37 36.7 C 76 20 148/94 H 98 Room Air Laboratory Results 08/17/25 05:47 WBC 5.38 RBC 4.38 L Hgb 14.1 Hct 39.5 L MCV 90.2 MCH 32.2 MCHC 35.7 RDW Std Deviation 41.6 RDW Coeff of Bryanna 12.5 Plt Count 154 MPV 10.3 Immature Gran % (Auto) 0.2 Neut % (Auto) 57.7 Lymph % (Auto) 31.2 [place] % (Auto) 6.7 Eos % (Auto) 3.5 Baso % (Auto) 0.7 Neut # (Auto) 3.10 Lymph # (Auto) 1.68 [place] # (Auto) 0.36 Eos # (Auto) 0.19 Baso # (Auto) 0.04 Immature Gran # (Auto) 0.01 Sodium 139 Potassium 3.8 Chloride 105 Carbon Dioxide 25 Anion Gap 9 BUN 10 Creatinine 0.70 Est Cr Clr Drug Dosing 163.2 eGFR 124.00 BUN/Creatinine Ratio 14.3 Glucose 129 H Calcium 9.0 PG Care Time/CCT Total # of Minutes Spent Total Time Spent with Patient: Total time spent is greater than 50% in coordination of care (as documented) at patient's floor/unit and/or counseling patient: Coding Level of Care Code 37787 SUB INP/OBS CARE 3/50MIN Diagnoses Substance-induced psychotic disorder F19.959 Opioid use disorder, moderate, in early remission, on maintenance therapy, dependence F11.21 Alcohol use disorder, severe, dependence F10.20 Methamphetamine use F15.10
[2025-08-17 23:04] VITALS: O2SAT 97
[2025-08-18 11:57] VITALS: BP 119/85; PULSE 81; RESP 19; TEMP 97.5
--- NOTE | 2025-08-18 13:52 | Discharge Summary ---
Discharge Summary Date of Service August 18, 2025 Principal Dx & Hospital Course #1 = Principal Diagnosis (1) Substance-induced psychotic disorder: 45-year-old male who presents for withdrawal with some concern for psychotic features/loose nations. Did have methamphetamine use 4 days previously. Last alcohol use was this morning. #Alcohol withdrawal, high risk He reports he has done poorly in the past with phenobarbital, did have an episode where this was attempted as a transition from benzodiazepines but notes that what helped was resumption of his Suboxone. Feels he has overall done better with benzos in the past would like to avoid phenobarbital PAWSS score >5, very high risk, although had not had a period of a few weeks where he had been sober and has drink continuously for around the last 4 days. He has had withdrawal symptoms with relatively high alcohol levels in the past. Followed on PCU Over course of 3 days he required a gradually decreasing dose of diazepam to help manage his symptoms. On day of discharge he was having minimal requirements most social/anxiety related. Discharge planning. We discussed a clear discharge planning to simplify things. His brother Skyler is very willing to act as a sponsor for him to assist with his early sobriety. He is fully aware of the current circumstances and his history. Chun was very willing to allow him to participate in this plan, they will work to establish additional outpatient resources/therapy for both social and addictive pressures intermittently and sporadic. Strongly encouraged him to begin insulin 12-step program as well as some additional resources for his ongoing weaknesses around #Substance-induced psychosis Psychotic features in the setting of not taking his quetiapine for 4 days and using methamphetamine for 4 days. Stable at the time of discharge, the patient has actually fairly good insight into his history and thinks that he can get maintained or avoid having these issues recur #Opioid Use Disorder in early remission - Sublocade 300mg last given 08/05/2025 Per patient still takes Suboxone 3 times daily, confirmed on PDMP Will continue Suboxone Extremely high risk for any opiate based therapy. Will continue to have to follow very closely in the outpatient setting, maintain strict adherence to his current process and protocols #Hypertension, anxiety Clonidine 0.1 mg 3 times daily continue as outpatient as needed (2) Opioid use disorder, moderate, in early remission, on maintenance therapy, dependence: (3) Alcohol use disorder, severe, dependence: (4) Methamphetamine use: Admission HPI Per Admitting Provider Chun presents to the ER for concern of hallucinations and concern of ETOH withdrawal he reports he was trying to control ADHD symptoms with crystal meth 'and this put me off into a complete and total spiral, anxiety went crazy and then I drank much more than normal.' [place] he has not felt normal since 4 days. Prior to taking crystal meth had been able to stay sober from his last admission up to 4 days ago. Last 4 days he started drinking again. DRinking about a half handle a day, in total has gone through three handles of vodka in the last 3 days. Last drink of ETOH was this morning at ~9-10am. Thinks he drank ~1/5 of vodka total last night with the last drink at 9am. Has gone through withdrawal before. This time he feels he is having different symptoms sinc etaking amphetamine. 'Feels like my brain is on fire. Starting to fade and not nearly as bad as a couple days ago, but still don't feel normal' Has use methamphetamine for ADHD symptoms before, last time was ~6 weeks ago. he has had hallucinations and full psychosis in the past. Didnt notice it last time he used methamphetamine, but did have an episode of psychosis for a week or two last October. He feels when he has had psychosis the alcohol has helped settle his high heart rate and agitation 'but that never really works'. He has had withdrawal before once he starts drinking up to 5 drinks a day. Currently taking suboxone. Last dose was ~2 days ago. Not currently taking any recreational drugs other than meth. 4 days ago he used a little less, maybe half of an 8 ball, maybe ~1.5g in total over four days, with the last use daily 4 days ago. He reports he has been having hallucinations the last 4 days. Started after meth. "I see and hear things that aren't there. There are creatures, but I cant tell what they look like I just know and feel like they are there. I feel like I'm in so much psychologic pain, and the sounds sound like hell." Does not see them currently, but has a awareness of something being there especially when closing his eyes. NO current auditory or visual hallucinations. He feels like 'its really hard to describe it, like they're there but also not there at the moment." Last took his seroquel 3 days ago. No thoughts of SI. No voices or hallucinations telling him to hurt himself. Feels safe telling us if that changes, or he felt scared. Last time he went through withdrawal last time. Was switched to phenobarb, but also did not get his suboxone which made things worse so not sure if it was the lack of suboxone or the benzos which caused his worsened withdrawal. He would like to avoid phenobarb this time if possible. Medical History: Reviewed Medications: Reviewed Surgical History: Reviewed Family history: Reviewed Allergies: Reviewed Code Status: Full Discharge Exam General: A&Ox3. NAD. Cooperative. HEENT: Atraumatic, normocephalic. Vision and hearing grossly intact. Pupils equal and reactive to light, sclera clear and anicteric Pulm: CTAB A&P. -wheezes, -rales, -rhonchi. No increased work of breathing. No respiratory distress. Cardiac: RRR. -mrg. Radial pulses intact and symmetrical. Abdominal: Nontender, nondistended, soft. BS present. Ext: No Edema, Moves all extremities equally NEURO: A&O as above, no focal deficits, minimal resting tremor. Skin: warm, moist. Discharge Plan Discharge Items Patient Disposition: Home - Self-Care Reason For Visit: SUSTANCE INDUCED PSYCHOSIS, ETOH WITHDRAWAL RISK Discharge Diagnosis: Substance Abuse Alcohol Withdrawal Substance induced psychosis Condition on Discharge: Fair Health Concerns: Prolonged discussion on the day of discharge.-year-old brother. He is very active maintaining support of systems. History from a relapsing substance use. We highly encourage you to resume 12-step process, follow-up with the primary clinic to discuss therapy and nonmedication options for management of ADHD. As always if you do have a relapse in symptoms occur you will need to be seen in the emergency department for stabilization/ evaluation Goals: Maintaining sobriety Activity: Resume your previous activity Non-emergency contact: Primary Care Provider Call non-emergency contact if: you have any medication questions and your symptoms worsen Follow-up/Referrals: PCP,NO [Primary Care Provider] - Diet: Regular Addtl Attending Provider Instructions: Advised to-follow closely for therapy referral, medication management options to maintain total abstinence from substances Pending Studies at Discharge: No Stand-Alone Forms: My [facility], Smoking Cessation Medications and DC Order Prescriptions: Continued thiamine HCl (vitamin B1) 100 mg Tablet 100 mg PO QAM 90 Days Qty: 90 0RF folic acid 1 mg Tablet 1 mg PO QAM 90 Days Qty: 90 0RF fexofenadine 180 mg Tablet 180 mg PO DAILY PRN (Reason: Allergy Symptoms) clonidine HCl 0.1 mg tablet 0.1 mg PO TID baclofen 5 mg tablet 5 mg PO TID quetiapine 50 mg tablet 50 mg PO HS buprenorphine-naloxone 8-2 mg tablet, sublingual 1 tab SUBLINGUAL TID 4 Days Qty: 12 0RF Discharge Orders: Discharge Order (Routine); Ordered 08/18/25 Ordered By: Steve Ha/Other Patient Handouts: Alcohol Withdrawal: What to Expect, Treating Drug Abuse and Addiction, Opioids Risks Admission Data Admit Date/Time: 08/14/25 18:45 Attending Provider: Steve Stephens Admit Provider: Lazaro Rangel Primary Care Provider: PCP,NO Other Providers: Lazaro Rangel Hospital Stay Data Consultations 08/14/25 17:54 ED Decision to Admit Stat 08/14/25 18:55 Consult Behavioral Health Liaison Routine Pending Results Patient Have Any Pending Studies at Discharge: No Discharge Instructions Given to Patient (Per Discharging Provider) Advised to-follow closely for therapy referral, medication management options to maintain total abstinence from substances Total Time Total Time Spent Total Time Spent (In Minutes): 45 minutes discussing appropriate multifactorial approach to reinitiate sobriety once he discharges from the hospital. Coordinating care plan with his brother Skyler and relaying abel points of the discussion and plan to help maintain sobriety Coding Level of Care Code 99088 INP/OBS DISCH >30 MIN Diagnoses Substance-induced psychotic disorder F19.959 Opioid use disorder, moderate, in early remission, on maintenance therapy, dependence F11.21 Alcohol use disorder, severe, dependence F10.20 Methamphetamine use F15.10
== END 2025-08-18 17:50 | disposition home or self-care (01) | DRG 897 ==
LOC: ED 16:44 → SUATTDRO 18:45 → 2E 18:45

== ENCOUNTER 2025-09-15 21:25 | Inpatient (IN) ==
--- NOTE | 2025-09-15 21:54 | Emergency Department Note ---
History of Present Illness General Chief complaint: Detox Request Stated complaint: DETOX History of Present Illness Maximum Pain Intensity: 7 This 35-year-old male presenting to the emergency department requesting detox services. Patient is a well-known alcoholic with chronic methamphetamine abuse. Patient states that he last drank alcohol around 12 noon, roughly 9-1/2 hours prior to arrival. The patient often drinks 2-3 drinks per hour, and has been hospitalist several times for detox. He feels like he is going to have a seizure, and has severe palpitations. He rates his discomfort a 7/10. Home Medications Medication Instructions Recorded Confirmed Type fexofenadine 180 mg tablet 180 mg PO DAILY PRN Allergy 06/29/25 09/16/25 History Symptoms quetiapine 50 mg tablet 50 mg PO HS 07/16/25 09/16/25 History buprenorphine 8 mg-naloxone 2 mg 1 tab sublingual TID 4 days #12 07/19/25 09/16/25 Rx sublingual tablet tabs baclofen 5 mg tablet 5 mg PO TID 08/14/25 09/16/25 History clonidine HCl 0.1 mg tablet 0.1 mg PO TID 08/14/25 09/16/25 History albuterol sulfate 90 mcg/actuation 2 puff inhalation BID PRN 09/16/25 09/16/25 History aerosol inhaler (Ventolin HFA) Shortness Of Breath Or Wheezing omeprazole 20 mg capsule,delayed 20 mg PO QAM 09/16/25 09/16/25 History release Allergies Allergy/AdvReac Type Severity Reaction Status Date / Time diphenhydramine AdvReac Severe "DON'T Verified 08/14/25 19:38 [From Michael] LIKE TO TAKE" Antihistamines - Alkylamine AdvReac Intermediate "Just Verified 08/14/25 19:38 Don't Feel Right When I Take Them" Antihistamines - Ethanolamine AdvReac Intermediate "Just Verified 08/14/25 19:38 Don't Feel Right When I Take Them" Antihistamines - AdvReac Intermediate "Just Verified 08/14/25 19:38 Ethylenediamine Don't Feel Right When I Take Them" Antihistamines - Piperazine AdvReac Intermediate "Just Verified 08/14/25 19:38 Don't Feel Right When I Take Them" Antihistamines - Piperidine AdvReac Intermediate "Just Verified 08/14/25 19:38 Don't Feel Right When I Take Them" buspirone [From BuSpar] AdvReac Intermediate Shaking/john Verified 08/14/25 19:38 mor Past Med/Surg History Problem List (Updated 09/16/25 @ 01:00 by Eric Hernandez PA-C) Alcohol withdrawal (Acute) Substance-induced psychotic disorder Opioid use disorder, moderate, in early remission, on maintenance therapy, dependence Alcohol use disorder, severe, dependence (Acute) Nicotine use Methamphetamine use (Acute) Post traumatic stress disorder (PTSD) (Chronic) Major depressive disorder, recurrent episode (Acute) Enlarged liver (Acute) Seasonal allergies (Acute) Medical History High anion gap metabolic acidosis Alcoholic intoxication Alcohol withdrawal Elevated liver enzymes Alcohol withdrawal Acute dehydration Heart palpitations Hypokalemia COVID-19 Transaminitis Acid reflux Tobacco abuse Homicidal ideation Depression with suicidal ideation Alcohol intoxication 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 Diplopia Anxiety and depression Depressive disorder Alcoholic hepatitis Lab test negative for COVID-19 virus No pertinent family history BRITTNY (generalized anxiety disorder) Left leg cellulitis Headache Dizziness Surgical History No pertinent past surgical history Family History Mother Other No significant family history Denies family history of Ovarian cancer Prostate cancer Myocardial infarction Breast cancer Colorectal cancer Hypertension Social History Smoking Status: Current every day smoker Tobacco Type: E-cigarettes / Vaping Cigarettes Per Day: 0.5 pk/day; Second Hand Exposure: No; Do You Dip or Chew Tobacco: No; Hx Alcohol Use: Yes Alcohol type: hard liquor Hx Substance Use: Yes Substance Use Type Other:: takes suboxone Preferred Language: Maltese Communication Ability: Effective Visual Impairment: No Limitations Hearing Ability: Normal Manager Critical Care Required: No Beliefs That Will Affect Care: None marital status: marital status details: Current Living Situation: Alone current occupational status: employed How many Children do You have: 1 Feels Safe at Home: Yes Childhood Exposure to Second-Hand Smoke: No Diet: regular Dental Care, Regularly: Yes Physical Activity Frequency: Daily Seatbelt Use: always Sunscreen Use: No Assistive Devices: None Review of Systems A total of 10 systems reviewed and were otherwise negative Physical Exam Vital Signs Vital Signs - 24 hr 09/15/25 21:30 09/15/25 21:45 09/15/25 21:49 Temperature 36.8 C Temperature Source Axillary Pulse Rate 147 H 140 H 140 H Pulse Rate [Apical] Pulse Rate from SpO2 Sensor 140 H Pulse Rhythm Regular Pulse Rhythm [Apical] Pulse Strength Normal Pulse Strength [Apical] Respiratory Rate 22 22 Respiratory Effort / Characteristics Non-Labored Spontaneous Respiratory Depth Normal Respiratory Pattern Regular Blood Pressure 156/114 H Blood Pressure [Right Arm] Blood Pressure Mean 128 Blood Pressure Mean [Right Arm] Blood Pressure Position Lying Blood Pressure Position [Right Arm] Pulse Oximetry 96 94 Oxygen Delivery Method Room Air Sepsis Recent Fever Within 48 Hours No Sepsis New/Unexplained Change in Mental Status N/A Sepsis Action Taken by Nursing No Action Required 09/15/25 21:49 09/15/25 21:49 09/15/25 21:50 Temperature Temperature Source Pulse Rate Pulse Rate [Apical] Pulse Rate from SpO2 Sensor Pulse Rhythm Pulse Rhythm [Apical] Pulse Strength Pulse Strength [Apical] Respiratory Rate Respiratory Effort / Characteristics Non-Labored Respiratory Depth Normal Respiratory Pattern Blood Pressure Blood Pressure [Right Arm] Blood Pressure Mean Blood Pressure Mean [Right Arm] Blood Pressure Position Blood Pressure Position [Right Arm] Pulse Oximetry Oxygen Delivery Method Room Air Room Air Sepsis Recent Fever Within 48 Hours Sepsis New/Unexplained Change in Mental Status Sepsis Action Taken by Nursing 09/15/25 21:51 09/15/25 22:00 09/15/25 22:00 Temperature Temperature Source Pulse Rate 152 H 144 H Pulse Rate [Apical] Pulse Rate from SpO2 Sensor 157 H 145 H Pulse Rhythm Pulse Rhythm [Apical] Pulse Strength Pulse Strength [Apical] Respiratory Rate 20 28 H Respiratory Effort / Characteristics Respiratory Depth Respiratory Pattern Blood Pressure 146/101 H Blood Pressure [Right Arm] Blood Pressure Mean 113 Blood Pressure Mean [Right Arm] Blood Pressure Position Blood Pressure Position [Right Arm] Pulse Oximetry 95 95 Oxygen Delivery Method Sepsis Recent Fever Within 48 Hours Sepsis New/Unexplained Change in Mental Status Sepsis Action Taken by Nursing 09/15/25 22:00 09/15/25 22:00 09/15/25 22:00 Temperature Temperature Source Pulse Rate Pulse Rate [Apical] Pulse Rate from SpO2 Sensor Pulse Rhythm Pulse Rhythm [Apical] Pulse Strength Pulse Strength [Apical] Respiratory Rate Respiratory Effort / Characteristics Respiratory Depth Respiratory Pattern Blood Pressure 146/101 H 146/101 H 146/101 H Blood Pressure [Right Arm] Blood Pressure Mean 113 113 113 Blood Pressure Mean [Right Arm] Blood Pressure Position Blood Pressure Position [Right Arm] Pulse Oximetry Oxygen Delivery Method Sepsis Recent Fever Within 48 Hours Sepsis New/Unexplained Change in Mental Status Sepsis Action Taken by Nursing 09/15/25 22:00 09/15/25 23:25 Temperature Temperature Source Pulse Rate Pulse Rate [Apical] 104 H Pulse Rate from SpO2 Sensor Pulse Rhythm Pulse Rhythm [Apical] Regular Pulse Strength Pulse Strength [Apical] Normal Respiratory Rate 16 Respiratory Effort / Characteristics Non-Labored Respiratory Depth Normal Respiratory Pattern Regular Blood Pressure 146/101 H Blood Pressure [Right Arm] 143/98 H Blood Pressure Mean 113 Blood Pressure Mean [Right Arm] 113 Blood Pressure Position Blood Pressure Position [Right Arm] Lying Pulse Oximetry 93 Oxygen Delivery Method Room Air Sepsis Recent Fever Within 48 Hours Sepsis New/Unexplained Change in Mental Status Sepsis Action Taken by Nursing VITALS: Vitals are noted on the nurse's note and reviewed by myself. Vital signs with tachycardia GENERAL: Disheveled white male who appears moderately uncomfortable. He is jittery on exam. HEAD: Normocephalic atraumatic. NECK: Supple without nuchal rigidity. No lymphadenopathy. No thyromegaly. Cervical spine is nontender. HEART: Tachycardic rate with regular rhythm LUNGS: Clear to auscultation bilaterally without wheezes, rales or rhonchi. No retractions or accessory muscle use. ABDOMEN: Positive normal bowel sounds x 4. Soft, nontender, without masses or organomegaly. No guarding or rebound tenderness. MUSCULOSKELETAL: No muscle atrophy, erythema, or edema noted. Full range of motion in all extremities. Course Administered Medications Sodium Chloride (Nss) 1,000 mls @ 999 mls/hr IV .Q1H1M ONE Stop: 09/16/25 01:18 Last Admin: 09/16/25 00:25 Dose: 999 mls/hr Documented By: enzo Discontinued Medications Lactated Ringer's (Lr) 1,000 mls @ 999 mls/hr IV .Q1H1M ONE Stop: 09/15/25 22:49 Last Infusion: 09/16/25 00:24 Dose: Infused Documented By: enzo Admin: 09/15/25 22:29 Dose: 999 mls/hr Documented By: TOSHIA Thiamine HCl 100 mg/ Syringe 10 mls @ 2 mls/min IV NOW STA Stop: 09/15/25 21:53 Last Admin: 09/15/25 22:29 Dose: 2 mls/min Documented By: TOSHIA Lorazepam (Lorazepam 1 Mg/1 Ml Syr Ed Inj Use) 2 mg IV ONE STA Stop: 09/15/25 21:50 Last Admin: 09/15/25 22:29 Dose: 2 mg Documented By: TOSHIA Lorazepam (Lorazepam 1 Mg/1 Ml Syr Ed Inj Use) 1 mg IV ONE STA Stop: 09/16/25 00:19 Last Admin: 09/16/25 00:25 Dose: 1 mg Documented By: enzo Nicotine (Nicotine 21 Mg/24 Hr Tdsy) 1 patch TD NOW STA Stop: 09/15/25 21:50 Last Admin: 09/15/25 22: Dose: 1 patch Documented By: TOSHIA Medical Decision Making Differential Diagnosis Differential diagnosis: Etiologies such as alcohol intoxication, toxicological, infection, hypoglycemia, electrolyte abnormalities, cardiac sources, intracerebral event, neurologic, as well as others were entertained. Laboratory Data 09/15/25 21:47 09/15/25 21:47 Lab Results 09/15/25 09/15/25 Range/Units 21:47 23:08 WBC 8.45 (4.8-10.8) K/ul RBC 4.75 (4.70-6.10) M/uL Hgb 15.4 (14.0-18.0) g/dL Hct 41.9 L (42.0-52.0) % MCV 88.2 (80.0-100.0) fL MCH 32.4 (25.0-34.0) pg MCHC 36.8 H (32.0-36.0) g/dL RDW Std Deviation 40.0 (36.4-46.3) fL RDW Coeff of Bryanna 12.3 (11.5-14.5) % Plt Count 214 (130-400) K/uL MPV 9.9 (9.4-12.4) fL Immature Gran % (Auto) 0.4 % Neut % (Auto) 55.7 % Lymph % (Auto) 34.7 % Glynn % (Auto) 7.5 % Eos % (Auto) 0.8 % Baso % (Auto) 0.9 % Neut # (Auto) 4.71 (1.40-6.50) K/uL Lymph # (Auto) 2.93 (1.20-3.40) K/uL Glynn # (Auto) 0.63 H (0.11-0.59) K/uL Eos # (Auto) 0.07 (0.00-0.50) K/uL Baso # (Auto) 0.08 (0.00-0.20) K/uL Immature Gran # (Auto) 0.03 (0.01-0.20) K/uL PT Cancelled 10.3 INR Cancelled 1.0 APTT Cancelled 24 PTT Ratio Cancelled 0.9 Sodium 136 (136-145) mmol/L Potassium 3.6 (3.5-5.1) mmol/L Chloride 96 L (98-107) mmol/L Carbon Dioxide 25 (21-32) mmol/L Anion Gap 15 H (3-11) BUN 12 (6-23) mg/dl Creatinine 0.80 (0.6-1.4) mg/dl Est Cr Clr Drug Dosing 142.8 ml/min eGFR 119.10 BUN/Creatinine Ratio 15.0 (10-20) Glucose 133 H (70-99(Fasting)) mg/dl Calcium 9.6 (8.6-10.3) mg/dl Magnesium 2.4 (1.7-2.4) mg/dl Total Bilirubin 0.7 (0.2-1.0) mg/dl AST 102 H (13-39) U/L ALT 62 H (7-52) U/L Alkaline Phosphatase 78 (34-104) U/L Troponin I High Sens 12.2 (0-20) pg/ml Total Protein 8.8 H (6.0-8.3) gm/dl Albumin 4.9 (3.4-5.0) gm/dl Globulin 3.9 (2.5-4.0) gm/dl Albumin/Globulin Ratio 1.3 (0.9-2) Ethyl Alcohol mg/dL 137.7 H (<10.0) mg/dl MDM Narrative Physical exam and history were performed. Nursing notes, EMR, and Medication List were personally reviewed. No social concerns were identified as barriers to patients care. History was provided by the Patient. Patient appears to have concerns for alcohol withdrawal. He is a well- established chronic alcoholic, often drinking hard liquor on a daily basis. He has not had a drink in over 9 hours and is quite tachycardic and tremulous on arrival. His alcohol withdrawal score is 7. IV access was established and labs were obtained. He was hydrated both LR and normal saline. He was given IV Ativan and IV thiamine here in the ER. An order was placed for continuous cardiac monitoring. The monitor shows a rate of 104 with sinus tachycardic rhythm. Patient's blood work is as above and was reviewed. He does not have a significant elevated white blood cell count, gross anemia, or significant electrolyte imbalance. Glucose is 133. AST 102, ALT 62, alk phos 78. Total bili 0.7. Alcohol is 137, which is somewhat concerning as the patient typically has alcohol in the 300s and he certainly could be experiencing withdrawal symptoms. Patient was reevaluated multiple times, and he did have some initial improvement of his tachycardia from the 140s to the low 100s. He did require additional fluids and Ativan here in the ER. Escalation of care was considered, and is felt to be necessary. Case was discussed with the on-call hospitalist who agreed to evaluate the patient here in the ER. Please see their dictation for further patient course, plan, and disposition. The chart was completed utilizing [employer] Speech Voice Recognition Software. Grammatical errors, random word insertions, pronoun errors, and incomplete sentences are an occasional consequence of this system due to software limitations, ambient noise, and hardware issues. Any formal questions or concerns about the content, text, or information contained within the body of this dictation should be directly addressed to the provider for clarification. Impression & Plan Alcohol use disorder, severe, dependence, Alcohol withdrawal Discharge Plan Visit Data Chief Complaint: Detox Request Stated Complaint: DETOX ED Provider: César Ascencio ED Midlevel Provider: Eric Hernandez Discharge Problem: Alcohol use disorder, severe, dependence, Alcohol withdrawal Patient Disposition: Being Evaluated by Hospitalist Condition: Fair Forms Stand Alone Forms: [facility], Suicide Prevention Resources, Important Visit Information Prescriptions Prescriptions: No Action fexofenadine 180 mg Tablet 180 mg PO DAILY PRN (Reason: Allergy Symptoms) clonidine HCl 0.1 mg tablet 0.1 mg PO TID baclofen 5 mg tablet 5 mg PO TID quetiapine 50 mg tablet 50 mg PO HS buprenorphine-naloxone 8-2 mg tablet, sublingual 1 tab SUBLINGUAL TID 4 Days Qty: 12 0RF omeprazole 20 mg Capsule,Delayed Release(Dr/Ec) 20 mg PO QAM albuterol sulfate [Ventolin HFA] 90 mcg/actuation HFA aerosol inhaler 2 puff INHALATION BID PRN (Reason: Shortness Of Breath Or Wheezing) Referrals Referrals: PCP,NO [Primary Care Provider] -
[2025-09-15 22:10] LABS: Hematocrit (blood only) 41.9 % (42.0-52.0); Hemoglobin 15.4 g/dL (14.0-18.0); Immature Granulocytes # (auto) 0.03 K/uL (0.01-0.20); Immature Granulocytes % (auto) 0.4 %; Mean Corpuscular Hemoglobin 32.4 pg (25.0-34.0); Mean Corpuscular Volume 88.2 fL (80.0-100.0); Platelet Count 214 K/uL (130-400); RDW Standard Deviation 40.0 fL (36.4-46.3); Red Blood Count 4.75 M/uL (4.70-6.10); White Blood Count 8.45 K/ul (4.8-10.8)
[2025-09-15 22:26] LABS: Alanine Aminotransferase 62.0 U/L (7-52); Albumin Globulin Ratio 1.3 (0.9-2); Albumin Level 4.9 gm/dl (3.4-5.0); Alkaline Phosphatase 78.0 U/L (34-104); Anion Gap 15.0 (3-11); Bilirubin,Total 0.7 mg/dl (0.2-1.0); Blood Urea Nitrogen 12.0 mg/dl (6-23); Calcium 9.6 mg/dl (8.6-10.3); Carbon Dioxide 25.0 mmol/L (21-32); Chloride 96.0 mmol/L (98-107); Creatinine Clr Calc Pharmacy 142.8 ml/min; Globulin 3.9 gm/dl (2.5-4.0); Glucose 133.0 mg/dl (70-99(Fasting)); Magnesium 2.4 mg/dl (1.7-2.4); Potassium 3.6 mmol/L (3.5-5.1); Sodium 136.0 mmol/L (136-145); Total Protein 8.8 gm/dl (6.0-8.3)
[2025-09-15] MEDS: NICOTINE 21 MG/24 HR TDSY TD STA (22:29)
[2025-09-15] MEDS: THIAMINE HCL 100 MG in SYRINGE 9 ML IV STA (22:29)
[2025-09-15] MEDS: LACTATED RINGER'S 1,000 ML IV ONE (22:29)
[2025-09-15] MEDS: LORazepam 1 MG/1 ML SYR ED Inj Use IV STA (22:29)
[2025-09-16] LABS: INR 1.0 (0.9-1.1); Partial Thromboplastin Time 24 Seconds (21-31); Prothrombin Time 10.3 Seconds (9.0-12.0)
[2025-09-16] MEDS: SODIUM CHLORIDE 0.9% 1,000 ML IV ONE (00:25)
[2025-09-16] MEDS: LORazepam 1 MG/1 ML SYR ED Inj Use IV STA (00:25)
--- NOTE | 2025-09-16 00:52 | History & Physical Report ---
Date of Service September 16, 2025 Assessment & Plan (1) Alcohol withdrawal: (2) Opioid use disorder, moderate, in early remission, on maintenance therapy, dependence: (3) Nicotine use: (4) Enlarged liver: Plan The patient is a 35-year-old male with past medical history including substance induced psychotic disorder, opiate use disorder moderate, alcohol use disorder severe, nicotine use, methamphetamine use, PTSD, major depressive disorder, hepatomegaly, and GERD. He presents to the emergency department as he has on several previous occasions, requesting alcohol detoxification, as he is concerned he is going through alcohol withdrawal. He reports his last alcohol intake was earlier in the day around noon. He often drinks 2-3 drinks per hour, and this will be his fifth admission since May of this year. Most recent hospitalization was from 08/14-08/18/2025, during which she was placed on a Valium IV AWSS protocol. The patient received the following from the ED: Normal saline 1 L bolus, lactated Ringer's 1 L bolus, thiamine 100 mg IV, NicoDerm patch, lorazepam 2 mg IV and 1 mg IV. The patient was then referred for evaluation for admission to the [facility]. Alcohol withdrawal/alcohol intoxication/alcohol use disorder- The patient will be admitted to telemetry for cardiac rhythm monitoring Most recent admission was from 08/14-08/18/2025. Patient continues to drink heavily. Will place on Valium IV high risk AWSS protocol. It was noted at last admission that he did not want to be on phenobarbital. Alcohol level 137.7 on admission Seizure precautions Status post 1 L normal saline bolus and lactated Ringer's 1 L bolus from the ED Placed on LR 125 mL/h x 2 L Serial CBC with differential, chemistry profile and magnesium levels Thiamine 100 mg IV daily. Folic acid 1 mg IV daily Enlarged liver/abnormal liver function test- AST of 102 and ALT of 62 at both a little bit higher than usual for him He is tender over his right upper quadrant Likely more an issue with alcoholic hepatitis as opposed to gallbladder dysfunction, however, cannot rule out gallbladder dysfunction at this time. CT scan of abdomen pelvis 06/29/2025 showed enlarged liver GERD- Change omeprazole p.o. to Protonix 40 mg IV twice daily Placed on famotidine 20 mg IV twice daily Patient is quite symptomatic on examination and reports that his reflux is very bad at this time. Tobacco use disorder- Continue NicoDerm patch 21 mg begun in the ED Alcohol cessation counseling Tobacco cessation counseling History of Present Illness Primary Care Provider: NO PCP The patient is a 35-year-old male with past medical history including substance induced psychotic disorder, opiate use disorder moderate, alcohol use disorder severe, nicotine use, methamphetamine use, PTSD, major depressive disorder, hepatomegaly, and GERD. He presents to the emergency department as he has several previous occasions, requesting alcohol detoxification. He reports his last alcohol intake was earlier in the day around noon. He often drinks 2-3 drinks per hour, and this will be his fifth admission since May of this year. Most recent hospitalization was from 08/14-08/18/2025, during which she was placed on a Valium IV AWSS protocol. The patient received the following from the ED: Normal saline 1 L bolus, lactated Ringer's 1 L bolus, thiamine 100 mg IV, NicoDerm patch, lorazepam 2 mg IV and 1 mg IV. The patient was then referred for evaluation for admission to the [facility]. Allergies Allergy/AdvReac Type Severity Reaction Status Date / Time diphenhydramine AdvReac Severe "DON'T Verified 08/14/25 19:38 [From Benadryl] LIKE TO TAKE" Antihistamines - Alkylamine AdvReac Intermediate "Just Verified 08/14/25 19:38 Don't Feel Right When I Take Them" Antihistamines - Ethanolamine AdvReac Intermediate "Just Verified 08/14/25 19:38 Don't Feel Right When I Take Them" Antihistamines - AdvReac Intermediate "Just Verified 08/14/25 19:38 Ethylenediamine Don't Feel Right When I Take Them" Antihistamines - Piperazine AdvReac Intermediate "Just Verified 08/14/25 19:38 Don't Feel Right When I Take Them" Antihistamines - Piperidine AdvReac Intermediate "Just Verified 08/14/25 19:38 Don't Feel Right When I Take Them" buspirone [From BuSpar] AdvReac Intermediate Shaking/john Verified 08/14/25 19:38 mor Home Medications Medication Instructions Recorded Confirmed Type fexofenadine 180 mg tablet 180 mg PO DAILY PRN Allergy 06/29/25 09/16/25 History Symptoms quetiapine 50 mg tablet 50 mg PO HS 07/16/25 09/16/25 History buprenorphine 8 mg-naloxone 2 mg 1 tab sublingual TID 4 days #12 07/19/25 09/16/25 Rx sublingual tablet tabs baclofen 5 mg tablet 5 mg PO TID 08/14/25 09/16/25 History clonidine HCl 0.1 mg tablet 0.1 mg PO TID 08/14/25 09/16/25 History albuterol sulfate 90 mcg/actuation 2 puff inhalation BID PRN 09/16/25 09/16/25 History aerosol inhaler (Ventolin HFA) Shortness Of Breath Or Wheezing omeprazole 20 mg capsule,delayed 20 mg PO QAM 09/16/25 09/16/25 History release Past Med/Surg History Problem List (Updated 09/16/25 @ 01:00 by Eric Hernandez PA-C) Alcohol withdrawal (Acute) Substance-induced psychotic disorder Opioid use disorder, moderate, in early remission, on maintenance therapy, dependence Alcohol use disorder, severe, dependence (Acute) Nicotine use Methamphetamine use (Acute) Post traumatic stress disorder (PTSD) (Chronic) Major depressive disorder, recurrent episode (Acute) Enlarged liver (Acute) Seasonal allergies (Acute) Medical History High anion gap metabolic acidosis Alcoholic intoxication Alcohol withdrawal Elevated liver enzymes Alcohol withdrawal Acute dehydration Heart palpitations Hypokalemia COVID-19 Transaminitis Acid reflux Tobacco abuse Homicidal ideation Depression with suicidal ideation Alcohol intoxication 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 Diplopia Anxiety and depression Depressive disorder Alcoholic hepatitis Lab test negative for COVID-19 virus No pertinent family history BRITTNY (generalized anxiety disorder) Left leg cellulitis Headache Dizziness Surgical History No pertinent past surgical history Family History Mother Other No significant family history Denies family history of Ovarian cancer Prostate cancer Myocardial infarction Breast cancer Colorectal cancer Hypertension Social History Smoking Status: Current every day smoker Tobacco Type: E-cigarettes / Vaping Cigarettes Per Day: 0.5 pk/day; Second Hand Exposure: No; Do You Dip or Chew Tobacco: No; Hx Alcohol Use: Yes Alcohol type: hard liquor Hx Substance Use: Yes Substance Use Type Other:: takes suboxone Preferred Language: Urdu Communication Ability: Effective Visual Impairment: No Limitations Hearing Ability: Normal Oenologist Required: No Beliefs That Will Affect Care: None marital status: marital status details: Current Living Situation: Alone current occupational status: employed How many Children do You have: 1 Feels Safe at Home: Yes Childhood Exposure to Second-Hand Smoke: No Diet: regular Dental Care, Regularly: Yes Physical Activity Frequency: Daily Seatbelt Use: always Sunscreen Use: No Assistive Devices: None Review of Systems Review of Systems: The patient denies chest pain, palpitations, shortness of breath, dyspnea on exertion, cough, lower extremity swelling, sore throat, fevers, chills, sweats, vomiting, diarrhea , constipation, blood in urine or stool, dysuria, urinary frequency or urgency, lightheadedness, dizziness, headache, loss of consciousness, rash, abnormal bruising or bleeding, focal weakness, numbness or tingling in arms or legs, generalized arthralgias or myalgias, back or neck pain, or night sweats. The review of systems is otherwise negative other than for that already noted above, and at least 10 systems have been reviewed. Physical Exam Physical Exam: The patient is awake, alert and oriented 3, well developed and well nourished, normocephalic and atraumatic, lying in bed and in no acute distress. HEENT--PERRL, EOMI, mucous membranes and oropharynx mildly dry. Neck--supple. No JVD. No bruits. Thyroid normal, trachea midline, no adenopathy. Heart--normal S1 and S2. No murmurs, rubs or gallops. Lungs--clear bilaterally, no respiratory distress, no accessory muscle use. Abdomen--normal bowel sounds and soft. Tender right upper quadrant. Nondisten ded Extremities--No edema. Dermatologic--normal skin turgor, normal color, no abnormal lymph nodes, no rash. Neurologic--cranial nerves II through XII grossly intact. Rheumatologic--normal range of motion. Psychiatric--normal affect. Results & Data Results & Data Vital Signs (Past 12 Hours) Vital Signs Temp Pulse Pulse Resp BP BP Pulse Ox 09/15/25 23:25 104 H 16 143/98 H 93 09/15/25 22:00 146/101 H 09/15/25 22:00 146/101 H 09/15/25 22:00 146/101 H 09/15/25 22:00 146/101 H 09/15/25 22:00 146/101 H 09/15/25 22:00 144 H 28 H 95 09/15/25 21:51 152 H 20 95 09/15/25 21:50 09/15/25 21:49 09/15/25 21:49 140 H 09/15/25 21:45 140 H 22 94 09/15/25 21:30 36.8 C 147 H 22 156/114 H 96 O2 Del Method 09/15/25 23:25 Room Air 09/15/25 22:00 09/15/25 22:00 09/15/25 22:00 09/15/25 22:00 09/15/25 22:00 09/15/25 22:00 09/15/25 21:51 09/15/25 21:50 Room Air 09/15/25 21:49 Room Air 09/15/25 21:49 09/15/25 21:45 09/15/25 21:30 Room Air Laboratory Results Laboratory Results WBC 5.92 K/ul (4.8-10.8) 09/16/25 03:55 RBC 3.96 M/uL (4.70-6.10) L 09/16/25 03:55 Hgb 12.6 g/dL (14.0-18.0) L 09/16/25 03:55 Hct 35.4 % (42.0-52.0) L 09/16/25 03:55 MCV 89.4 fL (80.0-100.0) 09/16/25 03:55 MCH 31.8 pg (25.0-34.0) 09/16/25 03:55 MCHC 35.6 g/dL (32.0-36.0) 09/16/25 03:55 RDW Std Deviation 41.0 fL (36.4-46.3) 09/16/25 03:55 RDW Coeff of Bryanna 12.5 % (11.5-14.5) 09/16/25 03:55 Plt Count 144 K/uL (130-400) 09/16/25 03:55 MPV 10.1 fL (9.4-12.4) 09/16/25 03:55 Immature Gran % (Auto) 0.3 % 09/16/25 03:55 Neut % (Auto) 49.3 % 09/16/25 03:55 Lymph % (Auto) 39.4 % 09/16/25 03:55 [place] % (Auto) 8.1 % 09/16/25 03:55 Eos % (Auto) 1.7 % 09/16/25 03:55 Baso % (Auto) 1.2 % 09/16/25 03:55 Neut # (Auto) 2.92 K/uL (1.40-6.50) 09/16/25 03:55 Lymph # (Auto) 2.33 K/uL (1.20-3.40) 09/16/25 03:55 [place] # (Auto) 0.48 K/uL (0.11-0.59) 09/16/25 03:55 Eos # (Auto) 0.10 K/uL (0.00-0.50) 09/16/25 03:55 Baso # (Auto) 0.07 K/uL (0.00-0.20) 09/16/25 03:55 Immature Gran # (Auto) 0.02 K/uL (0.01-0.20) 09/16/25 03:55 PT 10.3 Seconds (9.0-12.0) 09/15/25 23:08 INR 1.0 (0.9-1.1) 09/15/25 23:08 APTT 24 Seconds (21-31) 09/15/25 23:08 PTT Ratio 0.9 09/15/25 23:08 Sodium 136 mmol/L (136-145) 09/15/25 21:47 Potassium 3.6 mmol/L (3.5-5.1) 09/15/25 21:47 Chloride 96 mmol/L (98-107) L 09/15/25 21:47 Carbon Dioxide 25 mmol/L (21-32) 09/15/25 21:47 Anion Gap 15 (3-11) H 09/15/25 21:47 BUN 12 mg/dl (6-23) 09/15/25 21:47 Creatinine 0.80 mg/dl (0.6-1.4) 09/15/25 21:47 Est Cr Clr Drug Dosing 142.8 ml/min 09/15/25 21:47 eGFR 119.10 09/15/25 21:47 BUN/Creatinine Ratio 15.0 (10-20) 09/15/25 21:47 Glucose 133 mg/dl (70-99(Fasting)) H 09/15/25 21:47 Calcium 9.6 mg/dl (8.6-10.3) 09/15/25 21:47 Magnesium 2.4 mg/dl (1.7-2.4) 09/15/25 21:47 Total Bilirubin 0.7 mg/dl (0.2-1.0) 09/15/25 21:47 AST 102 U/L (13-39) H 09/15/25 21:47 ALT 62 U/L (7-52) H 09/15/25 21:47 Alkaline Phosphatase 78 U/L (34-104) 09/15/25 21:47 Troponin I High Sens 12.2 pg/ml (0-20) 09/15/25 21:47 Total Protein 8.8 gm/dl (6.0-8.3) H 09/15/25 21:47 Albumin 4.9 gm/dl (3.4-5.0) 09/15/25 21:47 Globulin 3.9 gm/dl (2.5-4.0) 09/15/25 21:47 Albumin/Globulin Ratio 1.3 (0.9-2) 09/15/25 21:47 Urine Color Yellow 09/16/25 02:10 Urine Appearance Clear (Clear) 09/16/25 02:10 Urine pH 7.5 (4.5-7.5) 09/16/25 02:10 Ur Specific [place] 1.010 (1.000-1.030) 09/16/25 02:10 Urine Protein Trace (Negative) H 09/16/25 02:10 Urine Glucose (UA) Negative (Negative) 09/16/25 02:10 Urine Ketones 1+ (Negative) H 09/16/25 02:10 Urine Blood Negative (Negative) 09/16/25 02:10 Urine Nitrite Negative (Negative) 09/16/25 02:10 Urine Bilirubin Negative (Negative) 09/16/25 02:10 Urine Urobilinogen Negative (Negative) 09/16/25 02:10 Ur Leukocyte Esterase Negative (Negative) 09/16/25 02:10 Urine WBC (Auto) 0-5 /hpf (0-5) 09/16/25 02:10 Urine RBC (Auto) 0-2 /hpf (0-2) 09/16/25 02:10 U Hyaline Cast (Auto) 0-2 /lpf (0-2) 09/16/25 02:10 U Epithel Cells (Auto) 0-2 /hpf (0-2) 09/16/25 02:10 Urine Bacteria (Auto) None Seen (None Seen) 09/16/25 02:10 Urine Comment 09/16/25 02:10 Urine Opiates Screen Neg (Neg) 09/16/25 02:10 Ur Methadone, Qual Neg (Neg) 09/16/25 02:10 Urine Fentanyl Screen Neg (Neg) 09/16/25 02:10 Urine Barbiturates Neg (Neg) 09/16/25 02:10 Ur Phencyclidine (PCP) Neg (Neg) 09/16/25 02:10 U Amphetamin/Meth Scrn Pos (Neg) H 09/16/25 02:10 MDMA (Ecstasy) Screen Neg (Neg) 09/16/25 02:10 U Benzodiazepines Scrn Pos (Neg) H 09/16/25 02:10 Ur Cocaine Metabolite Neg (Neg) 09/16/25 02:10 U Marijuana (THC) Screen Neg (Neg) 09/16/25 02:10 Ethyl Alcohol mg/dL 137.7 mg/dl (<10.0) H 09/15/25 21:47 Code Status & VTE Plan Code Status Full code PG Care Time/CCT Total # of Minutes Spent Total Time Spent with Patient: Total time spent is greater than 50% in coordination of care (as documented) at patient's floor/unit and/or counseling patient: Coding Level of Care Code 57776 INT INP/OBS CARE 3/75MIN Diagnoses Alcohol withdrawal F10.939 Opioid use disorder, moderate, in early remission, on maintenance therapy, dependence F11.21 Nicotine use Z72.0 Enlarged liver R16.0
[2025-09-16] MEDS: PANTOprazole 40 MG/10 ML SYR IV ONE (01:01)
[2025-09-16] MEDS: FAMOTIDINE 20MG IV PUSH 20 MG/5 ML SYR IV STA (01:01)
[2025-09-16] MEDS ORDERED: ALBUTEROL HFA 8 GM INHALER INH PRN (01:31)
[2025-09-16] MEDS: LACTATED RINGER'S 1,000 ML IV SCH (01:59)
[2025-09-16 03:05] LABS: Appearance Urine Clear (Clear); Bacteria Urine Automated None Seen (None Seen); Cast Urine Automated 0-2 /lpf (0-2); Epithelial Cell Urine Auto 0-2 /hpf (0-2); Glucose Urine UA Negative (Negative); RBC Urine Automated 0-2 /hpf (0-2); WBC Urine Automated 0-5 /hpf (0-5)
[2025-09-16 03:20] LABS: Amphetamines+Metham, Urine Pos (Neg); MDMA (Ecstacy), Urine Neg (Neg); Marijuana, Urine Neg (Neg)
[2025-09-16 04:16] LABS: Hematocrit (blood only) 35.4 % (42.0-52.0); Hemoglobin 12.6 g/dL (14.0-18.0); Immature Granulocytes # (auto) 0.02 K/uL (0.01-0.20); Immature Granulocytes % (auto) 0.3 %; Mean Corpuscular Hemoglobin 31.8 pg (25.0-34.0); Mean Corpuscular Volume 89.4 fL (80.0-100.0); Platelet Count 144 K/uL (130-400); RDW Standard Deviation 41.0 fL (36.4-46.3); Red Blood Count 3.96 M/uL (4.70-6.10); White Blood Count 5.92 K/ul (4.8-10.8)
[2025-09-16 05:12] LABS: Alanine Aminotransferase 49.0 U/L (7-52); Albumin Globulin Ratio 1.1 (0.9-2); Albumin Level 3.6 gm/dl (3.4-5.0); Alkaline Phosphatase 59.0 U/L (34-104); Anion Gap 7.0 (3-11); Bilirubin,Total 0.9 mg/dl (0.2-1.0); Blood Urea Nitrogen 11.0 mg/dl (6-23); Calcium 8.2 mg/dl (8.6-10.3); Carbon Dioxide 28.0 mmol/L (21-32); Chloride 102.0 mmol/L (98-107); Creatinine Clr Calc Pharmacy 158.7 ml/min; Globulin 3.3 gm/dl (2.5-4.0); Glucose 106.0 mg/dl (70-99(Fasting)); Potassium 3.5 mmol/L (3.5-5.1); Sodium 137.0 mmol/L (136-145); Total Protein 6.9 gm/dl (6.0-8.3)
[2025-09-16] MEDS: ONDANSETRON INJ 2 MG/ML 2 ML VIAL IV PRN (07:40)
[2025-09-16] MEDS: REMOVE NICODERM PATCH SCH ×2 (08:42→08:43)
[2025-09-16] MEDS: NICOTINE 21 MG/24 HR TDSY TD SCH (08:44)
[2025-09-16] MEDS: BACLOFEN 10 MG TAB PO SCH (08:44)
[2025-09-16] MEDS: PANTOprazole 40 MG/10 ML SYR IV SCH (08:45)
[2025-09-16] MEDS: FAMOTIDINE 20MG IV PUSH 20 MG/5 ML SYR IV SCH (08:59)
[2025-09-16] MEDS: BUPRENORPHINE/NALOXONE 8/2 MG TAB SL SCH (08:59)
--- NOTE | 2025-09-16 18:48 | Electrocardiogram Report ---
Test Reason : Blood Pressure : */* mmHG Vent. Rate : 139 BPM Atrial Rate : 139 BPM P-R Int : 140 ms QRS Dur : 86 ms QT Int : 284 ms P-R-T Axes : 70 89 55 degrees QTcB Int : 432 ms Sinus tachycardia Abnormal ECG Confirmed by Yung Gmaez ([id number]) on 09/16/2025 6:48:06 PM Referred By: REFERRED SELF Confirmed By: Yung Gamez
[2025-09-17 07:22] LABS: Hematocrit (blood only) 35.3 % (42.0-52.0); Hemoglobin 12.3 g/dL (14.0-18.0); Immature Granulocytes # (auto) 0.02 K/uL (0.01-0.20); Immature Granulocytes % (auto) 0.4 %; Mean Corpuscular Hemoglobin 32.0 pg (25.0-34.0); Mean Corpuscular Volume 91.9 fL (80.0-100.0); Platelet Count 129 K/uL (130-400); RDW Standard Deviation 43.0 fL (36.4-46.3); Red Blood Count 3.84 M/uL (4.70-6.10); White Blood Count 4.97 K/ul (4.8-10.8)
[2025-09-17 07:42] LABS: Alanine Aminotransferase 50.0 U/L (7-52); Albumin Globulin Ratio 1.4 (0.9-2); Albumin Level 3.8 gm/dl (3.4-5.0); Alkaline Phosphatase 57.0 U/L (34-104); Anion Gap 6.0 (3-11); Bilirubin,Total 0.7 mg/dl (0.2-1.0); Blood Urea Nitrogen 15.0 mg/dl (6-23); Calcium 8.6 mg/dl (8.6-10.3); Carbon Dioxide 26.0 mmol/L (21-32); Chloride 108.0 mmol/L (98-107); Creatinine Clr Calc Pharmacy 132.8 ml/min; Globulin 2.7 gm/dl (2.5-4.0); Glucose 131.0 mg/dl (70-99(Fasting)); Magnesium 2.1 mg/dl (1.7-2.4); Potassium 3.9 mmol/L (3.5-5.1); Sodium 140.0 mmol/L (136-145); Total Protein 6.5 gm/dl (6.0-8.3)
--- NOTE | 2025-09-17 10:13 | Hospitalist Progress Note ---
Date of Service September 17, 2025 Assessment & Plan (1) Alcohol withdrawal: Plan: Alcohol withdrawal/alcohol intoxication/alcohol use disorder- The patient will be admitted to telemetry for cardiac rhythm monitoring Most recent admission was from 08/14-08/18/2025. Patient continues to drink heavily. Will place on Valium IV high risk AWSS protocol. It was noted at last admission that he did not want to be on phenobarbital. Alcohol level 137.7 on admission Seizure precautions Status post 1 L normal saline bolus and lactated Ringer's 1 L bolus from the ED Placed on LR 125 mL/h x 2 L Serial CBC with differential, chemistry profile and magnesium levels Thiamine 100 mg IV daily. Folic acid 1 mg IV daily (2) Enlarged liver: Plan: Enlarged liver/abnormal liver function test- AST of 102 and ALT of 62 at both a little bit higher than usual for him He is tender over his right upper quadrant Likely more an issue with alcoholic hepatitis as opposed to gallbladder dysfunction, however, cannot rule out gallbladder dysfunction at this time. CT scan of abdomen pelvis 06/29/2025 showed enlarged liver Plan The patient is a 35-year-old male with past medical history including substance induced psychotic disorder, opiate use disorder moderate, alcohol use disorder severe, nicotine use, methamphetamine use, PTSD, major depressive disorder, hepatomegaly, and GERD. He presents to the emergency department as he has on several previous occasions, requesting alcohol detoxification, as he is concerned he is going through alcohol withdrawal. He reports his last alcohol intake was earlier in the day around noon. He often drinks 2-3 drinks per hour, and this will be his fifth admission since May of this year. Most recent hospitalization was from 08/14-08/18/2025, during which she was placed on a Valium IV AWSS protocol. The patient received the following from the ED: Normal saline 1 L bolus, lactated Ringer's 1 L bolus, thiamine 100 mg IV, NicoDerm patch, lorazepam 2 mg IV and 1 mg IV. The patient was then referred for evaluation for admission to the [facility] service. Admission and Anticipated Discharge Date Admission Date: September 16, 2025 Subjective No events overnight. Pt resting comfortably in bed. Review of Systems Review of Systems: CONST: Negative for fever, body aches and chills. HENT: Negative for neck pain/stiffness, headache, congestion, sore throat, swelling. EYES: Negative for discharge/pain or vision changes. RESP: Negative for cough/hemoptysis and shortness of breath. CV: Negative chest pain, difficulty breathing, palpitations. ABD: Negative pain, nausea, vomiting. : Negative increase frequency, dysuria, blood in urine or stool. MUSC: Negative for muscle aches, edema. SKIN: Negative rash, lesions/sores. NEURO: Negative headache, dizziness, weakness. Physical Exam Physical Exam: GENERAL APPEARANCE NAD, activity normal for age, well developed/ well nourished, no cyanosis, pallor, or diaphoresis. EYES lids/conjunctiva normal. EARS/NOSE/THROAT Mucous membranes moist, nares normal, lips/teeth normal uvula midline without oral pharyngeal erythema, exudate or swelling TMs normal bilaterally. No lymphangitis/lymphedema. HEAD/NECK normocephalic atraumatic, no facial trauma, neck is supple. RESPIRATORY respiratory effort normal, speaks in full sentences, no tripod position, no accessory muscle use. Lungs clear to auscultation without rhonchi, wheezes, rales CARDIAC Regular rate and rhythm, no edema. ABDOMINAL Soft, ND/NT. No evidence of fluid wave. No pulsatile masses on exam, rebound tenderness, Garcia sign or pain over Mcburney's point. MUSCLES/EXTREMITIES No abnormal range of motion, no swelling. SKIN Warm, pink and dry. No rashes, dermatoses, petechiae or lesions. NEUROLOGICAL Speech is clear and appropriate. Normal level of consciousness. Gait and coordination are normal. 5/5 strength in all extremities. PSYCH Normal mood and affect. Judgement/competence is appropriate Results & Data Results & Data Vital Signs (Past 12 Hours) Vital Signs Temp Pulse Pulse Resp BP Pulse Ox O2 Del Method 09/17/25 08:16 36.4 C L 90 18 150/82 H 97 Room Air 09/17/25 05:57 36.7 C 76 18 124/81 97 Room Air 09/17/25 03:31 36.9 C 112 H 18 129/87 97 Room Air 09/17/25 02:01 82 09/17/25 01:50 36.9 C 80 18 117/72 94 Room Air PG Care Time/CCT Total # of Minutes Spent Total Time Spent with Patient: Total time spent is greater than 50% in coordination of care (as documented) at patient's floor/unit and/or counseling patient: Coding Level of Care Code 44167 SUB INP/OBS CARE 2/35MIN Diagnoses Alcohol withdrawal F10.939 Enlarged liver R16.0
--- NOTE | 2025-09-17 14:52 | Discharge Summary ---
Discharge Summary Date of Service September 17, 2025 Principal Dx & Hospital Course #1 = Principal Diagnosis (1) Alcohol withdrawal: Alcohol withdrawal/alcohol intoxication/alcohol use disorder- The patient will be admitted to telemetry for cardiac rhythm monitoring Most recent admission was from 08/14-08/18/2025. Patient continues to drink heavily. Will place on Valium IV high risk AWSS protocol. It was noted at last admission that he did not want to be on phenobarbital. Alcohol level 137.7 on admission Seizure precautions Status post 1 L normal saline bolus and lactated Ringer's 1 L bolus from the ED Placed on LR 125 mL/h x 2 L Serial CBC with differential, chemistry profile and magnesium levels Thiamine 100 mg IV daily. Folic acid 1 mg IV daily (2) Enlarged liver: Enlarged liver/abnormal liver function test- AST of 102 and ALT of 62 at both a little bit higher than usual for him He is tender over his right upper quadrant Likely more an issue with alcoholic hepatitis as opposed to gallbladder dysfunction, however, cannot rule out gallbladder dysfunction at this time. CT scan of abdomen pelvis 06/29/2025 showed enlarged liver Plan The patient is a 35-year-old male with past medical history including substance induced psychotic disorder, opiate use disorder moderate, alcohol use disorder severe, nicotine use, methamphetamine use, PTSD, major depressive disorder, hepatomegaly, and GERD. He presents to the emergency department as he has on several previous occasions, requesting alcohol detoxification, as he is concerned he is going through alcohol withdrawal. He reports his last alcohol intake was earlier in the day around noon. He often drinks 2-3 drinks per hour, and this will be his fifth admission since May of this year. Most recent hospitalization was from 08/14-08/18/2025, during which she was placed on a Valium IV AWSS protocol. The patient received the following from the ED: Normal saline 1 L bolus, lactated Ringer's 1 L bolus, thiamine 100 mg IV, NicoDerm patch, lorazepam 2 mg IV and 1 mg IV. The patient was then referred for evaluation for admission to the [facility]. Admission HPI Per Admitting Provider The patient is a 35-year-old male with past medical history including substance induced psychotic disorder, opiate use disorder moderate, alcohol use disorder severe, nicotine use, methamphetamine use, PTSD, major depressive disorder, hepatomegaly, and GERD. He presents to the emergency department as he has several previous occasions, requesting alcohol detoxification. He reports his last alcohol intake was earlier in the day around noon. He often drinks 2-3 drinks per hour, and this will be his fifth admission since May of this year. Most recent hospitalization was from 08/14-08/18/2025, during which she was placed on a Valium IV AWSS protocol. The patient received the following from the ED: Normal saline 1 L bolus, lactated Ringer's 1 L bolus, thiamine 100 mg IV, NicoDerm patch, lorazepam 2 mg IV and 1 mg IV. The patient was then referred for evaluation for admission to the [facility]. Discharge Exam GENERAL APPEARANCE NAD, activity normal for age, well developed/ well nourished, no cyanosis, pallor, or diaphoresis. EYES lids/conjunctiva normal. EARS/NOSE/THROAT Mucous membranes moist, nares normal, lips/teeth normal uvula midline without oral pharyngeal erythema, exudate or swelling TMs normal bilaterally. No lymphangitis/lymphedema. HEAD/NECK normocephalic atraumatic, no facial trauma, neck is supple. RESPIRATORY respiratory effort normal, speaks in full sentences, no tripod position, no accessory muscle use. Lungs clear to auscultation without rhonchi, wheezes, rales CARDIAC Regular rate and rhythm, no edema. ABDOMINAL Soft, ND/NT. No evidence of fluid wave. No pulsatile masses on exam, rebound tenderness, Garcia sign or pain over Mcburney's point. MUSCLES/EXTREMITIES No abnormal range of motion, no swelling. SKIN Warm, pink and dry. No rashes, dermatoses, petechiae or lesions. NEUROLOGICAL Speech is clear and appropriate. Normal level of consciousness. Gait and coordination are normal. 5/5 strength in all extremities. PSYCH Normal mood and affect. Judgement/competence is appropriate Discharge Plan Discharge Items Patient Disposition: Home - Self-Care Reason For Visit: ALCOHOL WITHDRAWAL Discharge Diagnosis: alcoholwithdrawal Condition on Discharge: Fair Activity: Resume your previous activity Non-emergency contact: Primary Care Provider Call non-emergency contact if: you have any medication questions Follow-up/Referrals: PCP,NO [Primary Care Provider] - Addtl Attending Provider Instructions: Follow up with PMD in 2 weeks Pending Studies at Discharge: No Stand-Alone Forms: My [facility], Smoking Cessation Medications and DC Order Prescriptions: Continued fexofenadine 180 mg Tablet 180 mg PO DAILY PRN (Reason: Allergy Symptoms) clonidine HCl 0.1 mg tablet 0.1 mg PO TID baclofen 5 mg tablet 5 mg PO TID quetiapine 50 mg tablet 50 mg PO HS buprenorphine-naloxone 8-2 mg tablet, sublingual 1 tab SUBLINGUAL TID 4 Days Qty: 12 0RF omeprazole 20 mg Capsule,Delayed Release(Dr/Ec) 20 mg PO QAM albuterol sulfate [Ventolin HFA] 90 mcg/actuation HFA aerosol inhaler 2 puff INHALATION BID PRN (Reason: Shortness Of Breath Or Wheezing) Discharge Orders: Discharge Order (Routine); Ordered 09/17/25 Ordered By: Jean Claude Beltre Admission Data Admit Date/Time: 09/16/25 01:17 Attending Provider: Jean Claude Beltre Admit Provider: Reji Villavicencio Primary Care Provider: PCP,NO Other Providers: Reji Villavicencio Hospital Stay Data Consultations 09/16/25 00:32 ED Decision to Admit Stat Pending Results Patient Have Any Pending Studies at Discharge: No Discharge Instructions Given to Patient (Per Discharging Provider) Follow up with PMD in 2 weeks Total Time Total Time Spent Total Time Spent (In Minutes): 50 Coding Level of Care Code 75781 INP/OBS DISCH >30 MIN Diagnoses Alcohol withdrawal F10.939 Enlarged liver R16.0
[2025-09-17 15:35] VITALS: BP 152/97; PULSE 88; RESP 18; TEMP 98.2; O2SAT 98
== END 2025-09-17 17:06 | disposition home or self-care (01) | DRG 897 ==
LOC: ED 21:25 → SUATTDRO 09-16 01:17 → EDINP 09-16 01:17 → 2S 09-16 14:58